=== PATIENT | female | born 1975 | race Caucasian/White ===

== ENCOUNTER 2017-05-13 11:31 | Inpatient (IN) | payer MEDICAID, OTHER ==
[~2017-05-13] VITALS: Ht 160 cm; Wt 58.1 kg
[~2017-05-13 11:31] MED LIST: ADVI200C9 PO; VENTAER INH
[2017-05-13] MEDS ORDERED: IOHEXOL 350 MG/ML 10 ML VIAL (for RAD DIAG) IVCONTRAST ONE (11:32)
[2017-05-13 12:48] VITALS: BP 120/85; PULSE 95; RESP 16; TEMP 98.6; O2SAT 98
--- NOTE | 2017-05-13 12:53 | PD ---
HPI Chief Complaint: Abdominal Pain Time Seen by Provider: 12:53 Travel History International Travel<30 days: No Contact w/Intl Traveler<30days: No Traveled to known affect area: No History of Present Illness HPI 42-year-old female presents the emergency department with increasing abdominal discomfort, distention, decreased urinary output and constipation like symptoms. She states recent surgery at [facility] 2 weeks ago for reported bowel perforation. Medical records were obtained with a postoperative diagnosis of perforated viscus septic abscess, large rectovaginal abscess with perforated Meckel's diverticulum. There was concern for tubo- ovarian abscess. Patient has not gone back to follow-up, and still has octavio placed in her anterior abdominal surgical scar which appears well-healed. Patient denies fever or chills. Patient states very little appetite but denies vomiting. Patient states her pain is 9 out of 10 and generalized more in the lower abdomen than upper. She denies shortness of breath or chest pain. She denies dysuria or vaginal discharge. PFSH Past Medical History Anxiety: No Depression: Yes Heart Rhythm Problems: No Cancer: No Cardiovascular Problems: No High Cholesterol: No Congestive Heart Failure: No Cerebrovascular Accident: No Diabetes: No Diminished Hearing: No Endocrine: No Genitourinary: No Immune Disorder: No Musculoskeletal: Yes Neurologic: Yes Psychiatric: Yes Reproductive: No Respiratory: Yes (COPD) Seizures: Yes ( ) Thyroid Disease: No ?: Unknown : 3 Para: 1 Miscarriage: 1 : 1 Past Surgical History Abdominal Surgery: Yes (APPENDECTOMY) Appendectomy: Yes Social History Alcohol Use: Yes (2 vodka's daily) Tobacco Use: Yes (1PK per day) Substance Use: No Allergies-Medications (Allergen,Severity, Reaction): Coded Allergies: amoxicillin (Unverified Allergy, Severe, 05/13/17) penicillin G (Unverified Allergy, Severe, 05/13/17) Reported Meds & Prescriptions Reported Meds & Active Scripts Active Review of Systems Except as stated in HPI: all other systems reviewed are Neg General / Constitutional: No: Fever Eyes: No: Visual changes HENT: No: Headaches Cardiovascular: No: Chest Pain or Discomfort Respiratory: No: Shortness of Breath Gastrointestinal: Positive: Nausea, Abdominal Pain, Constipation, Changes in Bowel Habits, Loss of Appetite, Other (abdominal distention.), No: Indigestion Genitourinary: No: Dysuria Musculoskeletal: No: Pain Skin: No Rash Neurologic: No: Weakness Psychiatric: No: Depression Endocrine: No: Polydipsia Hematologic/Lymphatic: No: Easy Bruising Physical Exam Narrative GENERAL: Patient appears in mild to moderate distress. SKIN: Warm and dry. Poor pallor. Poor turgor with tenting. No rash. Patient has old ecchymotic area on the left anterior lateral lower abdomen. Surgical vision is well-healed without signs of wound dehiscence or cellulitis. HEAD: Atraumatic. Normocephalic. EYES: Pupils equal and round. No scleral icterus. No injection or drainage. ENT: No nasal bleeding or discharge. Mucous membranes pink and dry. Pharynx is clear. Airway is patent. NECK: Trachea midline. Supple and nontender. CARDIOVASCULAR: Regular rate and rhythm. No murmurs appreciated RESPIRATORY: No accessory muscle use. Clear to auscultation. Breath sounds equal bilaterally. GASTROINTESTINAL: Abdomen soft, moderate generalized tenderness, moderate distention. Hepatic and splenic margins not palpable. MUSCULOSKELETAL: Extremities without clubbing, cyanosis, or edema. No obvious deformities. NEUROLOGICAL: Awake and alert. No obvious cranial nerve deficits. Motor grossly within normal limits. Five out of 5 muscle strength in the arms and legs. Normal speech. PSYCHIATRIC: Appropriate mood and affect; insight and judgment normal. Data Data Last Documented VS Orders Orders Complete Blood Count With Diff (05/13/17 13:17) Comprehensive Metabolic Panel (05/13/17 13:17) Lipase (05/13/17 13:17) Lactic Acid (05/13/17 13:17) Prothrombin Time / Inr (Pt) (05/13/17 13:17) Act Partial Throm Time (Ptt) (05/13/17 13:17) Urinalysis - C+S If Indicated (05/13/17 13:17) Ct Abd/Pel W Iv Contrast(Rout) (05/13/17 13:17) Iv Access Insert/Monitor (05/13/17 13:17) Ecg Monitoring (05/13/17 13:17) Oximetry (05/13/17 13:17) NPO (05/13/17 13:17) Morphine Inj (Morphine Inj) (05/13/17 13:30) Ondansetron Inj (Zofran Inj) (05/13/17 13:30) Pantoprazole Inj (Protonix Inj) (05/13/17 13:30) Sodium Chlor 0.9% 1000 Ml Inj (Ns 1000 M (05/13/17 13:17) Sodium Chloride 0.9% Flush (Ns Flush) (05/13/17 13:30) Chest, Single Ap (05/13/17 13:17) Urinary Catheter Insert/Apply (05/13/17 13:17) Oral Contrast - Adult (05/13/17 13:29) Potassium Chlor 20 Meq Premix (Kcl 20 Me (05/13/17 14:45) Magnesium Sulfate 1 Gm Premix (Magnesium (05/13/17 14:45) Diatrizoate Liq ( Gastroview Liq) (05/13/17 15:37) Iohexol 350 Inj (Omnipaque 350 Inj) (05/13/17 11:32) Admit Order (Ed Use Only) (05/13/17 19:17) Labs Laboratory Tests Test 05/13/17 13:15 05/13/17 15:30 White Blood Count 17.5 TH/MM3 Red Blood Count 4.03 MIL/MM3 Hemoglobin 12.6 GM/DL Hematocrit 37.3 % Mean Corpuscular Volume 92.7 FL Mean Corpuscular Hemoglobin 31.3 PG Mean Corpuscular Hemoglobin Concent 33.7 % Red Cell Distribution Width 14.1 % Platelet Count 222 TH/MM3 Mean Platelet Volume 9.7 FL Neutrophils (%) (Auto) 79.7 % Lymphocytes (%) (Auto) 7.0 % Monocytes (%) (Auto) 11.8 % Eosinophils (%) (Auto) 1.0 % Basophils (%) (Auto) 0.5 % Neutrophils # (Auto) 13.9 TH/MM3 Lymphocytes # (Auto) 1.2 TH/MM3 Monocytes # (Auto) 2.1 TH/MM3 Eosinophils # (Auto) 0.2 TH/MM3 Basophils # (Auto) 0.1 TH/MM3 CBC Comment AUTO DIFF Differential Total Cells Counted 100 Neutrophils % (Manual) 80 % Band Neutrophils % 9 % Lymphocytes % 5 % Monocytes % 4 % Neutrophils # (Manual) 15.9 TH/MM3 Metamyelocytes 2 % Differential Comment FINAL DIFF MANUAL Toxic Granulation 1+ Platelet Estimate NORMAL Platelet Morphology Comment NORMAL Target Cells 1+ Prothrombin Time 18.7 SEC Prothromb Time International Ratio 1.7 RATIO Activated Partial Thromboplast Time 33.2 SEC Blood Urea Nitrogen 11 MG/DL Creatinine 0.71 MG/DL Random Glucose 125 MG/DL Total Protein 6.4 GM/DL Albumin 1.8 GM/DL Calcium Level 7.6 MG/DL Alkaline Phosphatase 531 U/L Aspartate Amino Transf (AST/SGOT) 68 U/L Alanine Aminotransferase (ALT/SGPT) 12 U/L Total Bilirubin 0.9 MG/DL Sodium Level 123 MEQ/L Potassium Level 2.7 MEQ/L Chloride Level 81 MEQ/L Carbon Dioxide Level 30.8 MEQ/L Anion Gap 11 MEQ/L Estimat Glomerular Filtration Rate 90 ML/MIN Lactic Acid Level 2.1 mmol/L Lipase 3502 U/L Urine Color YELLOW Urine Turbidity CLEAR Urine pH 5.5 Urine Specific [place] 1.005 Urine Protein NEG mg/dL Urine Glucose (UA) NEG mg/dL Urine Ketones NEG mg/dL Urine Occult Blood NEG Urine Nitrite NEG Urine Bilirubin NEG Urine Urobilinogen LESS THAN 2.0 MG/DL Urine Leukocyte Esterase NEG Urine WBC 2 /hpf Urine Squamous Epithelial Cells <1 /hpf Urine Granular Casts 1 /lpf Microscopic Urinalysis Comment CULT NOT INDICATED MDM Medical Decision Making Medical Screen Exam Complete: Yes Emergency Medical Condition: Yes Medical Record Reviewed: Yes Differential Diagnosis Status post bowel perforation. Constipation. Ascites. Abdominal distention. Abdominal pain. Abdominal blockage. Possible reperforation. Narrative Course Patient appears medically stable at time of exam. Labs ordered including CBC, CMP, lactic acid, urinalysis. EKG and chest x-ray are ordered. CT of the abdomen/pelvis with IV contrast is ordered. IV access is obtained patient is given 1000 mg normal saline bolus as well as 4 mg morphine IV and 4 mg Zofran IV. Patient is given 40 mg pantoprazole IV. EKG shows normal sinus rhythm without significant changes. Chest x-ray shows no acute findings and no free air. CBC significant for a leukocytosis of 17.5. No increased bands. Coagulation shows PT of 18.7, INR of 1.7, APTT is 33.2. CMP is significant for sodium 123, potassium 2.7, chloride of 81, random glucose 125, calcium is 7.6, AST 68, ALT 12, alkaline phosphatase of 531, albumin of 1.8, and lipase of 3502. Patient is started on potassium 20 mEq IV every hour 2, as well as magnesium 1 mg IV per hour 2. Lactic acid is 2.1. Urinalysis is within normal limits. Abdominal CT shows: #1 cirrhosis. #2 findings suggesting acute pancreatitis with large pseudocyst measuring 7.75.82.8 cm. #3 low density mass involving the head of the pancreas. Measuring 2.11.81.7 cm. Radiologist is concerned this relates to malignancy. There is clearly some mass effect on the pancreatic duct which is mildly dilated within the body and tail measuring 4 mm. MRI is to be considered for further evaluation. #4 Ileus type pattern. #5 small focus of air and fluid directly adjacent to the sigmoid colon. Radiologist is unsure if this relates to a very large diverticulum or to a contained microperforation. # 6 right basilar atelectasis. This is per Dr. Tang Garcia Jr. radiologist. Findings were discussed with Dr. Mayfield. Call was placed to the hospitalist, and patient was discussed for admission. Patient is admitted. Diagnosis Primary Impression: Acute pancreatitis Qualified Codes: K85.90 - Acute pancreatitis without necrosis or infection, unspecified Additional Impressions: Acute hyponatremia Hypokalemia Abdominal abscess Admitting Information Admitting Physician Requests: Admit Condition: Stable Allan Saeed May 13, 2017 12:53
[2017-05-13] MEDS ORDERED: SODIUM CHLOR 0.9% 1000 ML INJ 1,000 ML IV SCH (13:17)
[2017-05-13] MEDS ORDERED: MORPHINE SULFATE 4 MG/ML INJ IV PUSH ONE (13:30)
[2017-05-13] MEDS ORDERED: ONDANSETRON HCL 4 MG/2 ML VIAL IVP ONE (13:30)
[2017-05-13] MEDS ORDERED: PANTOPRAZOLE SODIUM 40 MG VIAL IVP ONE (13:30)
[2017-05-13] MEDS ORDERED: SODIUM CHLORIDE 0.9% FLUSH 10 ML FLUSH IV FLUSH PRN (13:30)
--- NOTE | 2017-05-13 13:43 | RADRPT ---
EXAM DATE/TIME: 05/13/2017 13:33 [facility] COMPARISON: CHEST SINGLE AP, April 21, 2015, 5:31. INDICATIONS : Free air, abdomen pain. MEDICAL HISTORY : hx of subdural hematoma, seizure SURGICAL HISTORY : None. ENCOUNTER: Initial ACUITY: 1 day PAIN SCORE: 0/10 LOCATION: Bilateral chest FINDINGS: Portable AP upright single view of the chest demonstrates a normal-sized cardiac silhouette. There ar e linear opacities at the lung bases. No pleural effusion or pneumothorax is identified. The bones an d soft tissues demonstrate no acute finding. There is no free air beneath the hemidiaphragms. CONCLUSION: Underinflation with atelectasis at the lung bases. Otherwise, no acute finding is identified. No free air is seen. Scotty Ball MD on May 13, 2017 at 13:40 Board Certified Radiologist. This report was verified electronically.
[2017-05-13 14:10] LABS: AUTOMATED NEUTROPHIL # 13.9 TH/MM3 (1.8-7.7); BASOPHIL # 0.1 TH/MM3 (0-0.2); BASOPHIL % 0.5 % (0.0-2.0); EOSINOPHIL # 0.2 TH/MM3 (0-0.4); HEMATOCRIT 37.3 % (35.0-46.0); LYMPHOCYTE # 1.2 TH/MM3 (1.0-4.8); MEAN CELL VOLUME 92.7 FL (80.0-100.0); MEAN CORPUSCULAR HEMOGLOBIN 31.3 PG (27.0-34.0); MEAN CORPUSCULAR HGB CONC 33.7 % (32.0-36.0); MONO % 11.8 % (0.0-8.0); NEUT % 79.7 % (16.0-70.0); PLATELET COUNT 222 TH/MM3 (150-450); RED BLOOD COUNT 4.03 MIL/MM3 (4.00-5.30); RED CELL DISTRIBUTION WIDTH 14.1 % (11.6-17.2); WHITE BLOOD COUNT 17.5 TH/MM3 (4.0-11.0)
[2017-05-13 14:11] LABS: HEMO FLAGS AUTO DIFF
[2017-05-13 14:20] LABS: INTERNATIONAL NORMALIZED RATIO 1.7 RATIO; PROTHROMBIN TIME - PATIENT 18.7 SEC (9.8-11.6)
[2017-05-13 14:26] LABS: APTT (PATIENT) 33.2 SEC (24.3-30.1)
[2017-05-13 14:30] LABS: BLOOD UREA NITROGEN 11 MG/DL (7-18); GLOMERULAR FILTRATION RATE 90 ML/MIN (>89)
[2017-05-13 14:31] LABS: ALKALINE PHOSPHATASE 531 U/L (45-117); ALT (GPT) 12 U/L (10-53); AST (GOT) 68 U/L (15-37); CHLORIDE 81 MEQ/L (98-107); TOTAL BILIRUBIN ADULT 0.9 MG/DL (0.2-1.0)
[2017-05-13 14:32] LABS: ANION GAP 11 MEQ/L (5-15); BICARBONATE 30.8 MEQ/L (21.0-32.0)
[2017-05-13 14:34] LABS: POTASSIUM 2.7 MEQ/L (3.5-5.1); SODIUM (NA) 123 MEQ/L (136-145)
[2017-05-13 14:46] LABS: BANDS 9 % (0-6); METAMYELOCYTES 2 % (0-1); NEUTROPHIL # MANUAL DIFF 15.9 TH/MM3 (1.8-7.7); PLATELET ESTIMATE SMEAR NORMAL (NORMAL); PLATELET MORPHOLOGY NORMAL (NORMAL); POLYS (SEG NEUTROPHILS) 80 % (16-70); SCAN/DIFF FINAL DIFF MANUAL; TARGET CELLS 1+ (NORMAL); TOXIC GRANULATION 1+ (NORMAL); WBC DIFF SAMPLE 100
[2017-05-13] MEDS: MAGNESIUM SULFATE 1 GM PREMIX 100 ML IV SCH ×2 (15:16→17:30)
[2017-05-13] MEDS: POTASSIUM CHLOR 20 MEQ PREMIX 100 ML IV SCH ×2 (15:16→16:45)
[2017-05-13 15:31] VITALS: BP 123/87; PULSE 90; RESP 16; O2SAT 97
[2017-05-13 15:33] VITALS: BP 123/87; PULSE 90; RESP 15; O2SAT 98
[2017-05-13] MEDS ORDERED: DIATRIZOATE MEGLUM/DIATRIZOATE SOD 9 ML CUP ONE (15:37)
[2017-05-13 16:05] LABS: BLOOD, URINE NEG (NEG); COMMENT (UR) CULT NOT INDICATED; CULTURE IF INDICATED CULT NOT INDICATED; GLUCOSE,URINE NEG (NEG); GRANULAR CAST, URINE 1 /lpf; KETONE, URINE NEG (NEG); NITRITE,URINE NEG (NEG); PH, URINE 5.5 (5.0-8.5); SQUAMOUS EPITHELIAL CELL URINE <1 /hpf (0-5); URINE COLOR YELLOW (YELLW/STRAW)
[2017-05-13 17:49] VITALS: BP 124/84; PULSE 96; RESP 18; O2SAT 95
--- NOTE | 2017-05-13 17:57 | RADRPT ---
EXAM DATE/TIME: 05/13/2017 17:29 [facility] COMPARISON: CHEST SINGLE AP, May 13, 2017, 13:33. INDICATIONS : Diffuse abdominal pain with swelling. IV CONTRAST: 100 cc Omnipaque 350 (iohexol) IV ORAL CONTRAST: Prescribed oral contrast ingested. RADIATION DOSE: 9.96 CTDIvol (mGy) MEDICAL HISTORY : Seizures. SURGICAL HISTORY : Appendectomy. abdominal surgery, perforated bowel ENCOUNTER: Initial ACUITY: 1 day PAIN SCALE: 7/10 LOCATION: abdomen TECHNIQUE: Volumetric scanning of the abdomen and pelvis was performed. Using automated exposure control and ad justment of the mA and/or kV according to patient size, radiation dose was kept as low as reasonably achievable to obtain optimal diagnostic quality images. DICOM format image data is available electro nically for review and comparison. FINDINGS: LOWER LUNGS: Linear atelectasis within the right lung base. LIVER: There is a lobulated contour to the liver. Hepatomegaly noted. No discrete mass or ductal dilatation. Portal vein is patent. Gallbladder contains 2 tiny stones but is otherwise unremarkable. A recannula ericka periumbilical vein noted. SPLEEN: Normal size without lesion. PANCREAS: There is a low density mass involving the head of the pancreas. This measures 2.1 x 1.8 x 1.7 cm. The pancreatic duct is mildly dilated measuring 4 mm. There is a retroperitoneal fluid collection exophy tic from the pancreas felt to relate to a pseudocyst. This measures 7.7 x 5.8 x 2.8 cm. There is stra nding in the retroperitoneum adjacent to the pseudocyst. KIDNEYS: Normal in size and shape. There is no mass, stone or hydronephrosis. ADRENAL GLANDS: Within normal limits. VASCULAR: There is no aortic aneurysm. BOWEL/MESENTERY: Mildly distended loops of small bowel and large bowel are noted consistent with an ileus. There is sc attered areas of stranding of the mesentery particularly within the ileocolic distribution. A small a mount of free fluid is seen within the cul-de-sac. Directly cephalad to the sigmoid colon is a small focus of air with air-fluid level. This measures 3.5 x 3.5 x 1.6 cm. It abuts the superior margin of the sigmoid colon. ABDOMINAL WALL: Within normal limits. RETROPERITONEUM: See above discussion. No adenopathy. BLADDER: Urinary bladder contains a Franklin balloon. It is decompressed and poorly evaluated. REPRODUCTIVE: Within normal limits. INGUINAL: There is no lymphadenopathy or hernia. MUSCULOSKELETAL: Within normal limits for patient age. CONCLUSION: 1. Cirrhosis. 2. Findings suggesting acute pancreatitis with large pseudocyst measuring 7.7 x 5.8 x 2.8 cm. 3. Low density mass involving the head of the pancreas. Measuring 2.1 x 1.8 x 1.7 cm. I'm concerned this relates to malignancy. There is clearly some mass effect on the pancreatic duct which is mildly dilated within the body and tail measuring 4 mm. Consider MRI to further evaluate. 4. Ileus type pattern. 5. A small focus of air and fluid directly adjacent to the sigmoid colon. I am unsure if this relates to a very large diverticulum or to a contained microperforation. 6. Right basilar atelectasis. Tang Garcia Jr., MD on May 13, 2017 at 17:45 Board Certified Radiologist. This report was verified electronically.
[2017-05-13] MEDS: SODIUM CHLOR 0.9% 1000 ML INJ 1,000 ML IV SCH (19:46)
--- NOTE | 2017-05-13 19:50 | HHI.HP ---
[facility] Unknown Admission Diagnosis Pancreatitis/Hyponatremia/Hypokalemia Diagnoses: (1) Sepsis Diagnosis: Principal (2) Pancreatitis Diagnosis: Principal (3) Pancreatic mass Diagnosis: Principal (4) Hypokalemia Diagnosis: Principal (5) S/P small bowel resection Diagnosis: Principal (6) Alcohol abuse Diagnosis: Principal (7) Tobacco abuse Diagnosis: Principal Travel History International Travel<30 Days: No Contact w/Intl Traveler <30 Da: No Traveled to Known Affected Are: No History of Present Illness This is a 42-year-old female with a PMH of Alcohol Abuse, Alcohol Related Seizure and Tobacco Abuse who presented to the ER with complaints of abdominal pain and increased abdominal distention x1 wk. States she was seen at [facility] for similar symptoms approx 2wks ago, partial records obtained from , pt is s/p Ex Lap w/ wash out abscess rectovaginal space and small bowel resection for likely Meckel's diverticulum by Dr. Jose Nichole on 04/17/17, octavio still in place as patient has not followed up. Reports ongoing abdominal pain and decreased PO intake. No fever, chills. Ongoing alcohol, however states she "cut down" yesterday, normally drinks 3-4 rum drinks per day , reports having only one drink yesterday for her birthday. On arrival, BP 120/ 85, HR 95, O2 sat 98% on RA, Afebrile. WBC 17.5. Band neutrophils 9%. Na 123 , K+ 2.7. Lactic Acid 2.1. Lipase 3502. INR 1.7. UA negative. CXR with underinflation and atelectasis. CT Abd/Pelvis w/ cirrhosis, acute pancreatitis with large pseudocyst, low density mass at the head of the pancreas, concerning for malignancy, mass effect on pancreatic duct, recommendation for MRI. Review of Systems Except as stated in HPI: all other systems reviewed are Neg ROS: 14 point review of systems otherwise negative. Past Family Social History Past Medical History PMH: Alcohol Abuse, Alcohol Related Seizure and Tobacco Abuse Past Surgical History PAST SURGICAL HISTORY: Appendectomy Allergies: Coded Allergies: amoxicillin (Unverified Allergy, Severe, 05/13/17) penicillin G (Unverified Allergy, Severe, 05/13/17) Family History PAST FAMILY HISTORY: Reviewed. No h/o DM or CAD Social History PAST SOCIAL HISTORY: Positive for Alcohol Abuse, difficult to quantify. Smokes 1ppd. Negative for drugs. Physical Exam Vital Signs Vital Signs Date Time Temp Pulse Resp B/P (MAP) Pulse Ox O2 Delivery O2 Flow Rate FiO2 05/13/17 17:49 96 18 124/84 (97) 95 Room Air 05/13/17 15:33 90 15 123/87 (99) 98 Room Air 05/13/17 15:31 90 16 123/87 (99) 97 Room Air 05/13/17 15:20 14 05/13/17 12:53 16 05/13/17 12:48 98.6 95 16 120/85 (97) 98 Physical Exam PE: GENERAL: Middle-aged thin white female in no acute distress. HEENT: PERRLA, EOMI. No scleral icterus or conjunctival pallor. No lid lag or facial droop. CARDIOVASCULAR: Regular rate and rhythm. No obvious murmurs to auscultation. No chest tenderness to palpation. RESPIRATORY: No obvious rhonchi or wheezing. Clear to auscultation. Breath sounds equal bilaterally. GASTROINTESTINAL: Abdomen soft, distention, generalized tenderness to palpation , surgical scars intact, no signs of infection, octavio removed in the ER. BS normal. MUSCULOSKELETAL: Extremities without clubbing, cyanosis, or edema. No obvious deformities. NEUROLOGICAL: Awake, alert and oriented x4. No focal neurologic deficits. Moving both upper and lower extremities spontaneously. Laboratory Laboratory Tests Test 05/13/17 13:15 05/13/17 15:30 White Blood Count 17.5 Red Blood Count 4.03 Hemoglobin 12.6 Hematocrit 37.3 Mean Corpuscular Volume 92.7 Mean Corpuscular Hemoglobin 31.3 Mean Corpuscular Hemoglobin Concent 33.7 Red Cell Distribution Width 14.1 Platelet Count 222 Mean Platelet Volume 9.7 Neutrophils (%) (Auto) 79.7 Lymphocytes (%) (Auto) 7.0 Monocytes (%) (Auto) 11.8 Eosinophils (%) (Auto) 1.0 Basophils (%) (Auto) 0.5 Neutrophils # (Auto) 13.9 Lymphocytes # (Auto) 1.2 Monocytes # (Auto) 2.1 Eosinophils # (Auto) 0.2 Basophils # (Auto) 0.1 CBC Comment AUTO DIFF Differential Total Cells Counted 100 Neutrophils % (Manual) 80 Band Neutrophils % 9 Lymphocytes % 5 Monocytes % 4 Neutrophils # (Manual) 15.9 Metamyelocytes 2 Differential Comment FINAL DIFF MANUAL Toxic Granulation 1+ Platelet Estimate NORMAL Platelet Morphology Comment NORMAL Target Cells 1+ Prothrombin Time 18.7 Prothromb Time International Ratio 1.7 Activated Partial Thromboplast Time 33.2 Blood Urea Nitrogen 11 Creatinine 0.71 Random Glucose 125 Total Protein 6.4 Albumin 1.8 Calcium Level 7.6 Alkaline Phosphatase 531 Aspartate Amino Transf (AST/SGOT) 68 Alanine Aminotransferase (ALT/SGPT) 12 Total Bilirubin 0.9 Sodium Level 123 Potassium Level 2.7 Chloride Level 81 Carbon Dioxide Level 30.8 Anion Gap 11 Estimat Glomerular Filtration Rate 90 Lactic Acid Level 2.1 Lipase 3502 Urine Color YELLOW Urine Turbidity CLEAR Urine pH 5.5 Urine Specific [place] 1.005 Urine Protein NEG Urine Glucose (UA) NEG Urine Ketones NEG Urine Occult Blood NEG Urine Nitrite NEG Urine Bilirubin NEG Urine Urobilinogen LESS THAN 2.0 Urine Leukocyte Esterase NEG Urine WBC 2 Urine Squamous Epithelial Cells <1 Urine Granular Casts 1 Microscopic Urinalysis Comment CULT NOT INDICATED Result Diagram: 05/13/17 1315 05/13/17 1315 Caprini VTE Risk Assessment Caprini VTE Risk Assessment: No/Low Risk (score <= 1) VTE Pharm Contraindication: Coagulopathy,INR elevated Caprini Risk Assessment Model Point Value = 1 Point Value = 2 Point Value = 3 Point Value = 5 Age 41-60 Minor surgery BMI > 25 kg/m2 Swollen legs Varicose veins or History of unexplained or recurrent spontaneous Oral contraceptives or hormone replacement Sepsis (< 1 month) Serious lung disease, including pneumonia (< 1 month) Abnormal pulmonary function Acute myocardial infarction Congestive heart failure (< 1 month) History of inflammatory bowel disease Medical patient at bed rest Age 61-74 Arthroscopic surgery Major open surgery (> 45 min) Laparoscopic surgery (> 45 min) Malignancy Confined to bed (> 72 hours) Immobilizing plaster cast Central venous access Age >= 75 History of VTE Family history of VTE Factor V Leiden Prothrombin [id number] Lupus anticoagulant Anticardiolipin antibodies Elevated serum homocysteine Heparin-induced thrombocytopenia Other congenital or acquired thrombophilia Stroke (< 1 month) Elective arthroplasty Hip, pelvis, or leg fracture Acute spinal cord injury (< 1 month) Prophylaxis Regimen Total Risk Factor Score Risk Level Prophylaxis Regimen 0-1 Low Early ambulation 2 Moderate Order ONE of the following: *Sequential Compression Device (SCD) *Heparin 5000 units SQ BID 3-4 Higher Order ONE of the following medications: *Heparin 5000 units SQ TID *Enoxaparin/Lovenox 40 mg SQ daily (WT < 150 kg, CrCl > 30 mL/min) *Enoxaparin/Lovenox 30 mg SQ daily (WT < 150 kg, CrCl > 10-29 mL/min) *Enoxaparin/Lovenox 30 mg SQ BID (WT < 150 kg, CrCl > 30 mL/min) AND/OR *Sequential Compression Device (SCD) 5 or more Highest Order ONE of the following medications: *Heparin 5000 units SQ TID (Preferred with Epidurals) *Enoxaparin/Lovenox 40 mg SQ daily (WT < 150 kg, CrCl > 30 mL/min) *Enoxaparin/Lovenox 30 mg SQ daily (WT < 150 kg, CrCl > 10-29 mL/min) *Enoxaparin/Lovenox 30 mg SQ BID (WT < 150 kg, CrCl > 30 mL/min) AND *Sequential Compression Device (SCD) Assessment and Plan Problem List: (1) Sepsis ICD Code: A41.9 - Sepsis, unspecified organism (2) Pancreatitis ICD Code: K85.90 - Acute pancreatitis without necrosis or infection, unspecified (3) Pancreatic mass ICD Code: K86.9 - Disease of pancreas, unspecified (4) S/P small bowel resection ICD Code: Z90.49 - Acquired absence of other specified parts of digestive tract (5) Hypokalemia ICD Code: E87.6 - Hypokalemia Status: Acute (6) Alcohol abuse ICD Code: F10.10 - Alcohol abuse Status: Chronic (7) Tobacco abuse ICD Code: Z72.0 - Tobacco use Assessment and Plan A/P: 1. Sepsis: HR 96, WBC 17.5, 9% Bands, Lactic Acid 2.1, Source-Unclear, possibly intra-abdominal, post-op. Obtain Blood Cultures, Start Cipro/Flagyl IV , IVF-caution w/ cirrhosis and possible fluid overload. 2. Pancreatitis: c/o abdominal pain, nausea/vomiting, decreased PO intake, Lipase 3502, CT Abd/Pelvis w/ acute pancreatitis w/ pseudocyst, images reviewed by me. Protonix IV, IVF, analgesics/antiemetics as needed. 3. Pancreatic Mass: CT Abd/Pelvis w/ low density mass at head of pancreas, concerning for malignancy per report, images reviewed. Recent hospitalization at [facility] for Perforated Bowel, pt states she was not told of a pancreatic mass, no imaging reports from available. Consult GI for further eval. Obtain MRI 4. S/p Small Bowel Resection: recent admit to [facility], s/p Ex Lap w/ washout abscess rectovaginal space and small bowel resection for likely perforated Meckel's diverticulum by Dr. Jose Nichole on 04/17/17, has not followed up post-op, octavio still in place upon arrival here, octavio removed in ER. CT w/ small focus of air adjacent to sigmoid colon, possibly large diverticulum vs contained microperforation, images reviewed. Will consult Dr. Nichole for further eval. 5. Hypokalemia: K+ 2.7, s/p replacement in ER, however not tolerating IV, will switch to PO, recheck labs in am. 6. Alcohol Abuse: w/ h/o Alcohol Related Seizure, high risk for withdrawal, CIWA, Seizure Precautions, MVT/Thiamine/Folate replacement 7. Tobacco Abuse: Pt counselled. Ativan/NicoDerm prn if needed. 8. DVT Prophylaxis: Pharmacologic contraindication secondary to coagulopathy, INR 1.7 and cirrhosis. 9. Social work for d/c planning as needed. 10. Case discussed w/ ER physician at length. Physician Certification 2 Midnight Certification Type: Admission for Inpatient Services Order for Inpatient Services The services are ordered in accordance with Medicare regulations or non- Medicare payer requirements, as applicable. In the case of services not specified as inpatient-only, they are appropriately provided as inpatient services in accordance with the 2-midnight benchmark. Estimated LOS (days): 2 days is the estimated time the patient will need to remain in the hospital, assuming treatment plan goals are met and no additional complications. Post-Hospital Plan: Not yet determined Chrissy Elias MD May 13, 2017 19:50
[2017-05-13] MEDS ORDERED: BISACODYL 10 MG SUPP RECTAL PRN (20:00)
[2017-05-13] MEDS ORDERED: MAGNESIUM HYDROXIDE SUSP 30 ML CUP PO PRN (20:00)
[2017-05-13] MEDS ORDERED: ONDANSETRON HCL 4 MG/2 ML VIAL IVP PRN (20:00)
[2017-05-13] MEDS ORDERED: LORazepam 2 MG TAB PO PRN (20:00)
[2017-05-13] MEDS ORDERED: LORazepam 1 MG TAB PO PRN (20:00)
[2017-05-13] MEDS ORDERED: HALOPERIDOL LACTATE 5 MG/ML AMP IM PRN (20:00)
[2017-05-13] MEDS ORDERED: LACTULOSE SYRUP 20 GM/30 ML CUP PO PRN (20:00)
[2017-05-13] MEDS ORDERED: LORazepam 2 MG/ML VIAL IV PUSH PRN ×4 (20:00)
[2017-05-13] MEDS ORDERED: SENNOSIDES 8.6 MG TAB PO PRN (20:00)
[2017-05-13] MEDS ORDERED: FLUMAZENIL 0.5 MG/5 ML VIAL IV PUSH PRN (20:00)
[2017-05-13 20:23] VITALS: BP 120/81; PULSE 93; RESP 18; O2SAT 96
[2017-05-13] MEDS ORDERED: POTASSIUM CHLORIDE 25 MEQ EFFERVESCENT TAB PO ONE (20:30)
[2017-05-13] MEDS: CIPROFLOXACIN 400 MG PREMIX 200 ML IV SCH (20:55)
[2017-05-13] MEDS: DOCUSATE SODIUM 50 MG/SENNA 8.6 MG TAB PO SCH (20:55)
[2017-05-13] MEDS: SODIUM CHLORIDE 0.9% FLUSH 10 ML FLUSH IV FLUSH SCH (20:57)
[2017-05-13] MEDS: HYDROmorphone HCL PF 1 MG/ML VIAL IV PRN (20:57)
[2017-05-13 22:31] VITALS: BP 113/80; PULSE 95; RESP 18; TEMP 97.1; O2SAT 95
[2017-05-13] MEDS: metroNIDAZOLE 500 MG INJ 100 ML IV SCH (22:47)
[2017-05-14] VITALS (9 sets, daily range): BP systolic 104–140; BP diastolic 76–98; PULSE 96–115; RESP 18–20; TEMP 96–99.1; O2SAT 92–95
[2017-05-14] MEDS: HYDROmorphone HCL PF 1 MG/ML VIAL IV PRN ×6 (00:17→20:57)
[2017-05-14] MEDS: metroNIDAZOLE 500 MG INJ 100 ML IV SCH ×3 (04:43→19:48)
[2017-05-14 08:07] LABS: AUTOMATED NEUTROPHIL # 20.2 TH/MM3 (1.8-7.7); BASOPHIL % 0.1 % (0.0-2.0); EOSINOPHIL # 0.1 TH/MM3 (0-0.4); EOSINOPHIL % 0.4 % (0.0-4.0); LYMPH % 2.9 % (9.0-44.0); LYMPHOCYTE # 0.7 TH/MM3 (1.0-4.8); MEAN CELL VOLUME 92.3 FL (80.0-100.0); MEAN CORPUSCULAR HEMOGLOBIN 31.1 PG (27.0-34.0); MEAN CORPUSCULAR HGB CONC 33.7 % (32.0-36.0); MONO % 10.2 % (0.0-8.0); NEUT % 86.4 % (16.0-70.0); PLATELET COUNT 220 TH/MM3 (150-450); RED BLOOD COUNT 3.57 MIL/MM3 (4.00-5.30); RED CELL DISTRIBUTION WIDTH 14.2 % (11.6-17.2); WHITE BLOOD COUNT 23.4 TH/MM3 (4.0-11.0)
[2017-05-14 08:17] LABS: HEMO FLAGS AUTO DIFF
[2017-05-14] MEDS: DOCUSATE SODIUM 50 MG/SENNA 8.6 MG TAB PO SCH ×2 (08:19→19:48)
[2017-05-14] MEDS: PANTOPRAZOLE SODIUM 40 MG VIAL IV PUSH SCH ×2 (08:19→19:48)
[2017-05-14] MEDS: CIPROFLOXACIN 400 MG PREMIX 200 ML IV SCH ×2 (08:20→09:59)
[2017-05-14] MEDS: SODIUM CHLORIDE 0.9% FLUSH 10 ML FLUSH IV FLUSH SCH ×2 (08:21→19:48)
[2017-05-14 08:37] LABS: ALKALINE PHOSPHATASE 530 U/L (45-117); ALT (GPT) 10 U/L (10-53); ANION GAP 10 MEQ/L (5-15); AST (GOT) 60 U/L (15-37); BICARBONATE 31.4 MEQ/L (21.0-32.0); BLOOD UREA NITROGEN 8 MG/DL (7-18); CHLORIDE 89 MEQ/L (98-107); GLOMERULAR FILTRATION RATE 141 ML/MIN (>89); SODIUM (NA) 130 MEQ/L (136-145)
[2017-05-14 08:44] LABS: POTASSIUM 2.7 MEQ/L (3.5-5.1)
--- NOTE | 2017-05-14 08:58 | HHI.PR ---
Subjective Remarks Follow up abdominal pain, nausea, vomiting. The patient reports that the abdominal pain is "about the same". She has had nausea and vomiting overnight. Emesis is greenish in color, nonbloody. Abdomen is distended. Objective Vitals Vital Signs Date Time Temp Pulse Resp B/P (MAP) Pulse Ox O2 Delivery O2 Flow Rate FiO2 05/14/17 07:50 98.1 103 20 133/98 (110) 95 05/14/17 04:00 96.0 105 18 140/95 (110) 94 05/14/17 00:47 16 05/14/17 00:00 96.2 96 18 134/93 (107) 93 05/13/17 22:31 97.1 95 18 113/80 (91) 95 05/13/17 22:04 05/13/17 20:23 93 18 120/81 (94) 96 05/13/17 17:49 96 18 124/84 (97) 95 Room Air 05/13/17 15:33 90 15 123/87 (99) 98 Room Air 05/13/17 15:31 90 16 123/87 (99) 97 Room Air 05/13/17 15:20 14 05/13/17 12:53 16 05/13/17 12:48 98.6 95 16 120/85 (97) 98 I/O 05/13/17 05/13/17 05/13/17 05/14/17 05/14/17 05/14/17 06:59 14:59 22:59 06:59 14:59 22:59 Intake Total 1100 ml 120 ml Balance 1100 ml 120 ml Intake Oral 120 ml IV Total 1100 ml Result Diagram: 05/14/17 0710 05/14/17 0710 Imaging Last Impressions Chest X-Ray 05/13/17 1317 Signed Impressions: Service Date/Time: Saturday, May 13, 2017 13:33 - CONCLUSION: Underinflation with atelectasis at the lung bases. Otherwise, no acute finding is identified. No free air is seen. Scotty Ball MD Abdomen/Pelvis CT 05/13/17 1317 Signed Impressions: Service Date/Time: Saturday, May 13, 2017 17:29 - CONCLUSION: 1. Cirrhosis. 2. Findings suggesting acute pancreatitis with large pseudocyst measuring 7.7 x 5.8 x 2.8 cm. 3. Low density mass involving the head of the pancreas. Measuring 2.1 x 1.8 x 1.7 cm. I'm concerned this relates to malignancy. There is clearly some mass effect on the pancreatic duct which is mildly dilated within the body and tail measuring 4 mm. Consider MRI to further evaluate. 4. Ileus type pattern. 5. A small focus of air and fluid directly adjacent to the sigmoid colon. I am unsure if this relates to a very large diverticulum or to a contained microperforation. 6. Right basilar atelectasis. Tang Garcia Jr., MD Objective Remarks General: No acute distress. Heart: Regular rate and rhythm. No murmur. Lungs: Clear to auscultation bilaterally. No wheezes, rales, or rhonchi. Breathing is nonlabored. Abdomen: Distended. Tender to palpation diffusely. Extremities: No lower extremity edema. Psych: Alert and oriented. Procedures None Urinary Catheter: No Vascular Central Line Catheter: No A/P Problem List: (1) Sepsis ICD Code: A41.9 - Sepsis, unspecified organism (2) Pancreatitis ICD Code: K85.90 - Acute pancreatitis without necrosis or infection, unspecified (3) Pancreatic mass ICD Code: K86.9 - Disease of pancreas, unspecified (4) S/P small bowel resection ICD Code: Z90.49 - Acquired absence of other specified parts of digestive tract (5) Hypokalemia ICD Code: E87.6 - Hypokalemia Status: Acute (6) Alcohol abuse ICD Code: F10.10 - Alcohol abuse Status: Chronic (7) Tobacco abuse ICD Code: Z72.0 - Tobacco use Assessment and Plan 1. Sepsis: Source likely abdominal. WBCs increasing. Blood cultures are pending. Continue IV antibiotics. 2. Pancreatitis: Lipase is elevated. Make NPO. CT shows acute pancreatitis with pseudocyst. GI consult pending. 3. Pancreatic mass: MRI ordered. GI and general surgery consults pending. 4. Abdominal pain, distention: Place NG tube to low intermittent suction. 5. S/P small bowel resection: General surgery consult pending. Patient has not followed up post-op. [place] removed in ER. 6. Hypokalemia: Supplement potassium. 7. Tobacco abuse: Counselled. 8. DVT prophylaxis: SCDs, SKYLER hose. Avoid chemical prophylaxis secondary to coagulopathy, possible need for surgical intervention. Agustín Mora MD May 14, 2017 08:58
[2017-05-14] MEDS ORDERED: THIAMINE HCL 100 MG TAB PO SCH (09:00)
[2017-05-14] MEDS ORDERED: FOLIC ACID 1 MG TAB PO SCH (09:00)
[2017-05-14] MEDS ORDERED: MULTIVITAMINS/MINERALS THERAPEUTIC TAB PO SCH (09:00)
[2017-05-14 09:14] LABS: BANDS 1 % (0-6); METAMYELOCYTES 2 % (0-1); MYELOCYTES 1 % (0-0); NEUTROPHIL # MANUAL DIFF 21.1 TH/MM3 (1.8-7.7); POLYS (SEG NEUTROPHILS) 86 % (16-70); WBC DIFF SAMPLE 100
[2017-05-14 09:16] LABS: PLATELET ESTIMATE SMEAR NORMAL (NORMAL); PLATELET MORPHOLOGY ENLARGED (NORMAL); SCAN/DIFF FINAL DIFF MANUAL; TARGET CELLS 1+ (NORMAL); TOXIC GRANULATION 2+ (NORMAL)
[2017-05-14] MEDS ORDERED: GADODIAMIDE PF 287 MG/ML 10 ML VIAL (for RAD MRI) IVCONTRAST ONE (09:40)
--- NOTE | 2017-05-14 10:29 | RADRPT ---
EXAM DATE/TIME: 05/14/2017 09:13 [facility] COMPARISON: CT ABDOMEN & PELVIS W CONTRAST, May 13, 2017, 17:29. INDICATIONS : Abnormal CT scan. CONTRAST: 10 cc Omniscan (gadodiamide) IV MEDICAL HISTORY : None. SURGICAL HISTORY : Craniotomy. Right ankle ENCOUNTER: Initial ACUITY: 1 day PAIN SCORE: 0/10 LOCATION: Abdomen. TECHNIQUE: Multiplanar, multisequence magnetic resonance imaging of the abdomen was performed. High-resolution 3D dataset was utilized to reconstruct maximum-intensity projection (MIP) images. FINDINGS: INTRAHEPATIC BILE DUCTS: Within normal limits. No significant anatomical variant is present. EXTRAHEPATIC BILE DUCTS: The common bile duct measures 1.8 cm No stone or filling defect is identified. The distal common bile duct does taper down at the level of the head of the pancreas suggesting there may be a focal strict ure at this level. GALLBLADDER: No stones, wall thickening, or pericholecystic fluid. LIVER: Liver appears to be enlarged and 20.6 cm.. No liver lesion is identified. Portal vein is within norm al limits. PANCREAS: There is diffuse prominence involving the head of the pancreas which I suspect is related to patient' s known diagnosis of pancreatitis. However there does appear to be a focal area of some decreased sig nal in the upper head of the pancreas measuring 2.5 x 1.5 cm. This area does not demonstrate any sign ificant postcontrast enhancement. Also, the pancreatic duct does not appear to be significantly dilat ed. However the distal common bile duct does appear to be narrowed at this level. OTHER: The kidneys are functioning bilaterally. The adrenal glands and spleen are unremarkable. No para-aort ic adenopathy is demonstrated. There is some free fluid in the upper abdomen inflammatory changes in the mid abdomen characteristic of pancreatitis. CONCLUSION: 1. There is definite evidence of pancreatitis with inflammatory changes and fluid in the upper abdome n. 2. There is a focal nonspecific low signal lesion in head of pancreas measuring 2.5 x 1.5 cm without abnormal enhancement. The distal common bile duct at this level is narrowed suggestive of a stricture . The common bile duct is dilated at 1.8 cm. A focal mass in the head of the pancreas would be a prim khalida consideration. However, there is also diffuse inflammatory changes involving the pancreas as well as inflammatory changes in the upper abdomen indicating pancreatitis which I believe confuses the is chava. When the inflammatory changes associated with pancreatitis have resolved, ERCP would be recommen ded for further evaluation of this area. Sandro London MD on May 14, 2017 at 10:14 Board Certified Radiologist. This report was verified electronically.
[2017-05-14] MEDS: POTASSIUM CHLOR 20 MEQ PREMIX 100 ML IV SCH ×2 (12:19→15:30)
[2017-05-14] MEDS: SODIUM CHLOR 0.9% 1000 ML INJ 1,000 ML IV SCH ×2 (15:46→19:44)
--- NOTE | 2017-05-14 15:46 | PD.CONS ---
HPI History of Present Illness This is a 42 year old female who presented to the emergency room with abdominal pain and distention. She was recently hospitalized at [facility] and was noted to have a large complex pelvic abscess with concern for possible perforated Meckel's diverticulum. She underwent exploration with washout and drainage of abscess with drain placement on (04/17/17) with Dr. Nichole. Her condition improved and she was discharged from the hospital, but did not follow up with general surgery afterwards. She states that she was doing well after the surgery, but then started loosing weight and having abdominal distention with pain. She cannot provide much detail and reports that she has a history of a brain injury and therefore cannot remember. She does endorse nausea/ vomiting with bilious material. Her abdominal distention has progressively been getting worse. The pain starts in her lower abdomen and radiates to her entire abdomen. She came to the ER and was found to have a fever and leukocytosis with elevated lipase. She was sent for CT scan of the abdomen and pelvis with IV contrast (05/13/17) and this revealed cirrhosis, findings suggesting acute pancreatitis with large pseudocyst measuring 7.7 x 5.8 x 2.8 cm. Low density mass involving the head of the pancreas. Measuring 2.1 x 1.8 x 1.7 cm. I'm concerned this relates to malignancy. There is clearly some mass effect of the pancreatic duct which is mildly dilated within the body and spell measuring 4 mm. Consider MRI to further evaluate. Ileus type pattern. A small focus of air and fluid directly adjacent to the sigmoid colon. I am unsure if this relates to a very large I've reticulin or tic contained microperforation. Right basilar atelectasis. MRCP with and without contrast ()----> there is definite evidence of pancreatitis with inflammatory changes and fluid in the upper abdomen. There is a focal nonspecific low signal lesion in the head of the pancreas measuring 2.5 x 1.5 cm without abnormal enhancement. The distal common bile duct at this level is narrowed suggestive of a stricture. The common bile duct is dilated at 1.8 cm. A focal mass in the head of the pancreas would be a primary consideration. However there is also diffuse inflammatory changes involving then pancreas as well as inflammatory changes in the abdomen indicating pancreatitis which I believe confuses the issue. When the inflammatory changes associated with pancreatitis have resolved, ERCP would be recommended for further evaluation of this area. GI was consulted for further evaluation and treatment. The patient reports a history of ETOH use, usually 3-4 per day. She denies any history of pancreatitis. (Prachi Aldrich) PFSH Past Medical History Alcohol Abuse Alcohol Related Seizure Tobacco Abuse Meckel's diverticulum Perforated viscous septic abscess, large rectovaginal abscess with perforated Meckel's diverticulum. ? Tubo-ovarian abscess Hx large acute frontotemporal parietal occipital subdural hematoma Hx respiratory failure, requiring tracheostomy Hx dysphagia, requiring PEG tube placement Past Surgical History Recent exploratory laparotomy for perforated viscous septic abscess, large rectovaginal abscess with perforated Meckel's diverticulum. EGD with peg tube placement Tracheostomy (Prachi Aldrich) Coded Allergies: amoxicillin (Unverified Allergy, Severe, 05/13/17) penicillin G (Unverified Allergy, Severe, 05/13/17) Medications Allergies Coded Allergies Type Severity Reaction Last Updated Verified amoxicillin Allergy Severe 05/13/17 No penicillin G Allergy Severe 05/13/17 No Active Scripts Medications Dose Route/Sig Max Daily Dose Days Date Category Family History Pt denies. States both mom and dad from "normal reasons" Brother committed suicide Social History Positive for Alcohol Abuse, difficult to quantify Smokes 1ppd Negative for drugs. (Prachi Aldrich) Review of Systems Constitutional: COMPLAINS OF: Fatigue, Fever, Weight loss, Chills, DENIES: Change in appetite Respiratory: COMPLAINS OF: Shortness of breath, DENIES: Cough Cardiovascular: DENIES: Chest pain Gastrointestinal: COMPLAINS OF: Abdominal pain, Nausea, Vomiting, Swelling of Abdomen, DENIES: Black stools, Bloody stools, Constipation, Diarrhea Musculoskeletal: COMPLAINS OF: Back pain Integumentary: COMPLAINS OF: Pruritus Neurologic: DENIES: Headache Psychiatric: COMPLAINS OF: Anxiety, DENIES: Confusion (Prachi Aldrich) GI Exam Vitals I&O Vital Signs Date Time Temp Pulse Resp B/P (MAP) Pulse Ox O2 Delivery O2 Flow Rate FiO2 05/14/17 11:50 99.1 108 20 112/84 (93) 95 05/14/17 08:00 102 05/14/17 07:50 98.1 103 20 133/98 (110) 95 05/14/17 04:00 96.0 105 18 140/95 (110) 94 05/14/17 00:47 16 05/14/17 00:00 96.2 96 18 134/93 (107) 93 05/13/17 22:31 97.1 95 18 113/80 (91) 95 05/13/17 22:04 05/13/17 20:23 93 18 120/81 (94) 96 05/13/17 17:49 96 18 124/84 (97) 95 Room Air I/O 05/13/17 05/13/17 05/13/17 05/14/17 05/14/17 05/14/17 06:59 14:59 22:59 06:59 14:59 22:59 Intake Total 1100 ml 120 ml 300 ml Balance 1100 ml 120 ml 300 ml Intake Oral 120 ml IV Total 1100 ml 300 ml Imaging Last Impressions Cholangiopancreatography MRI 05/14/17 0000 Signed Impressions: Service Date/Time: Sunday, May 14, 2017 09:13 - CONCLUSION: 1. There is definite evidence of pancreatitis with inflammatory changes and fluid in the upper abdomen. 2. There is a focal nonspecific low signal lesion in head of pancreas measuring 2.5 x 1.5 cm without abnormal enhancement. The distal common bile duct at this level is narrowed suggestive of a stricture. The common bile duct is dilated at 1.8 cm. A focal mass in the head of the pancreas would be a primary consideration. However, there is also diffuse inflammatory changes involving the pancreas as well as inflammatory changes in the upper abdomen indicating pancreatitis which I believe confuses the issue. When the inflammatory changes associated with pancreatitis have resolved, ERCP would be recommended for further evaluation of this area. Sandro London MD Chest X-Ray 05/13/17 1317 Signed Impressions: Service Date/Time: Saturday, May 13, 2017 13:33 - CONCLUSION: Underinflation with atelectasis at the lung bases. Otherwise, no acute finding is identified. No free air is seen. Scotty Ball MD Abdomen/Pelvis CT 05/13/17 1317 Signed Impressions: Service Date/Time: Saturday, May 13, 2017 17:29 - CONCLUSION: 1. Cirrhosis. 2. Findings suggesting acute pancreatitis with large pseudocyst measuring 7.7 x 5.8 x 2.8 cm. 3. Low density mass involving the head of the pancreas. Measuring 2.1 x 1.8 x 1.7 cm. I'm concerned this relates to malignancy. There is clearly some mass effect on the pancreatic duct which is mildly dilated within the body and tail measuring 4 mm. Consider MRI to further evaluate. 4. Ileus type pattern. 5. A small focus of air and fluid directly adjacent to the sigmoid colon. I am unsure if this relates to a very large diverticulum or to a contained microperforation. 6. Right basilar atelectasis. Tang Garcia Jr., MD Laboratory Test 05/14/17 07:10 White Blood Count 23.4 TH/MM3 Red Blood Count 3.57 MIL/MM3 Hemoglobin 11.1 GM/DL Hematocrit 33.0 % Mean Corpuscular Volume 92.3 FL Mean Corpuscular Hemoglobin 31.1 PG Mean Corpuscular Hemoglobin Concent 33.7 % Red Cell Distribution Width 14.2 % Platelet Count 220 TH/MM3 Mean Platelet Volume 9.2 FL Neutrophils (%) (Auto) 86.4 % Lymphocytes (%) (Auto) 2.9 % Monocytes (%) (Auto) 10.2 % Eosinophils (%) (Auto) 0.4 % Basophils (%) (Auto) 0.1 % Neutrophils # (Auto) 20.2 TH/MM3 Lymphocytes # (Auto) 0.7 TH/MM3 Monocytes # (Auto) 2.4 TH/MM3 Eosinophils # (Auto) 0.1 TH/MM3 Basophils # (Auto) 0.0 TH/MM3 CBC Comment AUTO DIFF Differential Total Cells Counted 100 Neutrophils % (Manual) 86 % Band Neutrophils % 1 % Monocytes % 10 % Neutrophils # (Manual) 21.1 TH/MM3 Metamyelocytes 2 % Myelocytes 1 % Differential Comment FINAL DIFF MANUAL Toxic Granulation 2+ Platelet Estimate NORMAL Platelet Morphology Comment ENLARGED Target Cells 1+ Blood Urea Nitrogen 8 MG/DL Creatinine 0.48 MG/DL Random Glucose 153 MG/DL Total Protein 6.5 GM/DL Albumin 1.8 GM/DL Calcium Level 8.0 MG/DL Alkaline Phosphatase 530 U/L Aspartate Amino Transf (AST/SGOT) 60 U/L Alanine Aminotransferase (ALT/SGPT) 10 U/L Total Bilirubin 1.0 MG/DL Sodium Level 130 MEQ/L Potassium Level 2.7 MEQ/L Chloride Level 89 MEQ/L Carbon Dioxide Level 31.4 MEQ/L Anion Gap 10 MEQ/L Estimat Glomerular Filtration Rate 141 ML/MIN Lipase 3258 U/L Date/Time Source Procedure Growth Status 05/13/17 20:23 Blood Peripheral Aerobic Blood Culture - Preliminary NO GROWTH IN 1 DAY Resulted 05/13/17 20:23 Blood Peripheral Anaerobic Blood Culture - Preliminary NO GROWTH IN 1 DAY Resulted Physical Examination GEN: Ill/malnourished appearing HEENT: Normocephalic; atraumatic; no jaundice. CHEST: CTA, diminished CARDIAC: Regular, tachycardic ABDOMEN: Firm, distended, diffuse tenderness, (+) BS. NGT with large amount of dark bilious material. EXTREMITIES: No clubbing, cyanosis, or edema. SKIN: Normal; no rash; no jaundice. MANUFACTURING RECRUITER: No focal deficits; alert and oriented times three. (Prachi Aldrich) Assessment and Plan Plan ASSESSMENT: - Pancreatitis with large pseudocyst, pancreatic head mass. CT scan of the abdomen and pelvis with IV contrast (05/13/17) and this revealed cirrhosis, findings suggesting acute pancreatitis with large pseudocyst measuring 7.7 x 5.8 x 2.8 cm. Low density mass involving the head of the pancreas. Measuring 2.1 x 1.8 x 1.7 cm. I'm concerned this relates to malignancy. There is clearly some mass effect of the pancreatic duct which is mildly dilated within the body and spell measuring 4 mm. Consider MRI to further evaluate. Ileus type pattern. A small focus of air and fluid directly adjacent to the sigmoid colon. I am unsure if this relates to a very large I've reticulin or tic contained microperforation. Right basilar atelectasis. MRCP with and without contrast (05/14/17)----> there is definite evidence of pancreatitis with inflammatory changes and fluid in the upper abdomen. There is a focal nonspecific low signal lesion in the head of the pancreas measuring 2.5 x 1.5 cm without abnormal enhancement. The distal common bile duct at this level is narrowed suggestive of a stricture. The common bile duct is dilated at 1.8 cm. A focal mass in the head of the pancreas would be a primary consideration. However there is also diffuse inflammatory changes involving then pancreas as well as inflammatory changes in the abdomen indicating pancreatitis which I believe confuses the issue. When the inflammatory changes associated with pancreatitis have resolved, ERCP would be recommended for further evaluation of this area. WBC 23.4, Lipase 3258, CEA, Ca19-9 pending. LFTs are not obstructive. NPO. NGT to LIWS. GS following. She has a large pseudocyst and pancreatic head mass, although it is unclear if this an inflammatory mass r/t pancreatitis vs. malignant mass at this time. Will need to d/w Dr. Child possible EUS +/- ERCP for further evaluation. At this point, continue treatment of pancreatitis. Cipro/Flagyl, IVF, PPI - Abdominal distention, n/v. Likely related to above. NGT to LIWS, having mod to large amount bilious output PPI. - Leukocytosis. WBC 23.4. Bcx no growth 1 day. Cipro/flagyl - Electrolyte abnormalities. Na 130, K+ 2.7. Replacement per attending. - Anemia, no acute blood loss. HH 11.1/33.0. - ETOH abuse. DT precautions per attending. - S/P recent hospitalization at [facility] for large complex pelvic abscess with concern for possible perforated Meckel's diverticulum. S/P exploration with washout and drainage of abscess with drain placement on (04/17/17) with Dr. Nichole. PLAN: - NPO- occasional ice chip to moisten mouth - NGT to LIWS - Cont. Protonix - Cont. Cipro/Flagyl - Await BCx - Await Ca19-9, CEA - Monitor labs - Will need to discuss possible EUS +/- ERCP with Dr. Child - Supportive care - Further recommendations to follow based on results of above (Prachi Aldrich) Physician Comments Seen and examined, plan as above, will follow up with you . Further plan to follow. (Marcelo Busch MD) Prachi Aldrich May 14, 2017 15:46 Marcelo Busch MD May 14, 2017 19:26
--- NOTE | 2017-05-14 16:47 | MB ---
cc: RAFAEL GARAY MD DATE OF CONSULTATION: 05/14/2017. REASON FOR CONSULTATION: Patient known to service, abdominal pain. History of bowel resection. HISTORY OF PRESENT ILLNESS: The patient is a 41-year-old female with history of EtOH abuse, seizures, smoking who presented to the emergency department with increased abdominal distension and pain x1 week. She had a recent admission to [facility] several weeks ago with finding of large complex pelvic abscess with concern for possible perforated Meckel's. She underwent exploration, washout and drainage of abscess with drain placement on 04/17/2017 and progressed relatively well. However, she was discharged from the hospital and has been a failure to follow up with me in the office and developed recurrence of abdominal pain. 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 Also questionable concern for pancreatic head mass. She is noted per notes to be continuing to drink alcohol. However she does state she has cut down on consumption. PAST MEDICAL HISTORY: 1. EtOH abuse. 2. Seizures. 3. Tobacco. 4. Pelvic abscess. PAST SURGICAL HISTORY: 1. Appendectomy. 2. Exploratory laparotomy with small bowel resection due to perforation of abscess. ALLERGIES: 1. AMOXICILLIN. 2. PENICILLIN-G. MEDICATIONS: See the electronic medical record. FAMILY HISTORY: Denies diabetes or hypertension. SOCIAL HISTORY: Positive for EtOH, smoking, denies IV drug abuse. REVIEW OF SYSTEMS: GENERAL: The patient complained of subjective fevers. HEAD, EYES, EARS, NOSE, THROAT: Denies eye pain or ear pain. LUNGS: Denies cough or wheeze. HEART: Denies palpitations, chest pain. ABDOMEN: Complains of nausea, vomiting, abdominal pain, distension. : Denies dysuria, hematuria. ENDOCRINE: Denies polyuria, polydipsia. MUSCULOSKELETAL: Denies edema or swelling or arthralgia. NEUROLOGIC: Denies numbness or tingling. PSYCHIATRIC: EtOH abuse. PHYSICAL EXAMINATION: GENERAL: In no acute distress. VITAL SIGNS: Temperature 98.6, pulse 95, respirations 16, blood pressure 120/85, saturation in 98%. HEAD, EYES, EARS, NOSE, THROAT: Pupils equal, round and reactive to light and accommodation. LUNGS: Clear to auscultation with bilateral expansion. HEART: S1-S2 and regular rhythm. ABDOMEN: Distended. Positive tenderness to palpation. Diffuse well healing incisional scar. No sign of infection. EXTREMITIES: Moving all extremities. Warm. NEUROLOGIC: Alert and oriented times four. 5/5 noted in all extremities. LABORATORY AND DIAGNOSTIC DATA: WBC 23.4, hemoglobin 11.1, hematocrit 33, platelets 220,000. Sodium 130, potassium 2.7, CO2 89, BUN 8, creatinine 0.4, total bilirubin 1, AST 60, ALT 10, alkaline phosphatase 530, lipase 3258. CT was reviewed by myself: Cirrhosis, pancreatitis, large pseudocyst, a 7.7 cm mass involving head of pancreas 2.1 x 1.8 cm. Ileus pattern. ASSESSMENT: The patient is a 41-year-old female with chronic EtOH pancreatitis, acute onset set of abdominal pain, associated ileus, pancreatic head mass. PLAN: After a full workup, the patient with above-named issues including: Acute on chronic pancreatitis. The patient currently under management for this cleared with IV fluids, bowel rest and p.o. pain well and continued operative observation. The patient does have a large pseudocyst we will await GI recommendations. In the face of acute pancreatitis as long this patient's obstruction subsides, I would recommend observing the pseudocyst for now. In regards to her pancreatic head mass, difficult to discern given the severe inflammatory background of acute pancreatitis. At this point, will follow up on pending MRI and will recommend repeat evaluation of actually pseudocyst and pancreatic head mass once the pancreatitis has resolved. At this point we would be able to delineate the pancreatic head mass was clearly and also the patient would benefit from ERCP; again, will wait GI recommendations on this as well. Will check CEA and CA 19-9 tumor markers for evaluation at this time and continue to follow. For her acute pancreatitis, also will continue to trend the lipase. In regards to the patient's likely ileus at this time and not necessarily mechanical bowel obstruction, the patient currently Has an NG tube for decompression. Agree with this management and will continue to follow and evaluate with abdominal exams and x-rays and await bowel function. Further continue IV fluids correcting electrolytes and assisting with pain control. Thank you for the consultation. MD ESPERANZA Noble/CHANTE /3:24 PM /4:27 PM
[2017-05-15] VITALS (7 sets, daily range): BP systolic 101–120; BP diastolic 65–85; PULSE 107–112; RESP 16–20; TEMP 96.6–98.8; O2SAT 91–97
[2017-05-15] MEDS: HYDROmorphone HCL PF 1 MG/ML VIAL IV PRN ×6 (00:56→20:53)
[2017-05-15] MEDS: metroNIDAZOLE 500 MG INJ 100 ML IV SCH ×3 (04:59→22:31)
[2017-05-15 07:46] LABS: AUTOMATED NEUTROPHIL # 13.5 TH/MM3 (1.8-7.7); BASOPHIL # 0.1 TH/MM3 (0-0.2); BASOPHIL % 0.3 % (0.0-2.0); EOSINOPHIL # 0.7 TH/MM3 (0-0.4); EOSINOPHIL % 3.8 % (0.0-4.0); HEMATOCRIT 27.9 % (35.0-46.0); LYMPH % 8.6 % (9.0-44.0); LYMPHOCYTE # 1.6 TH/MM3 (1.0-4.8); MEAN CELL VOLUME 94.1 FL (80.0-100.0); MEAN CORPUSCULAR HEMOGLOBIN 31.1 PG (27.0-34.0); MEAN CORPUSCULAR HGB CONC 33.1 % (32.0-36.0); MONO % 12.1 % (0.0-8.0); NEUT % 75.2 % (16.0-70.0); PLATELET COUNT 195 TH/MM3 (150-450); RED BLOOD COUNT 2.96 MIL/MM3 (4.00-5.30); RED CELL DISTRIBUTION WIDTH 14.4 % (11.6-17.2)
[2017-05-15 07:52] LABS: HEMO FLAGS AUTO DIFF
[2017-05-15 08:06] LABS: ANION GAP 8 MEQ/L (5-15); AST (GOT) 47 U/L (15-37); BICARBONATE 29.4 MEQ/L (21.0-32.0); BLOOD UREA NITROGEN 10 MG/DL (7-18); CHLORIDE 95 MEQ/L (98-107); GLOMERULAR FILTRATION RATE 160 ML/MIN (>89); MAGNESIUM 2.1 MG/DL (1.5-2.5); POTASSIUM 3.2 MEQ/L (3.5-5.1); SODIUM (NA) 132 MEQ/L (136-145)
[2017-05-15 08:08] LABS: ALT (GPT) 9 U/L (10-53)
[2017-05-15 08:10] LABS: ALKALINE PHOSPHATASE 376 U/L (45-117); TOTAL BILIRUBIN ADULT 1.2 MG/DL (0.2-1.0)
[2017-05-15] MEDS: SODIUM CHLORIDE 0.9% FLUSH 10 ML FLUSH IV FLUSH SCH ×2 (09:00→20:58)
[2017-05-15 09:09] LABS: BANDS 4 % (0-6); METAMYELOCYTES 1 % (0-1)
[2017-05-15 09:14] LABS: EOSINOPHILS 7 % (0-4); MYELOCYTES 2 % (0-0); NEUTROPHIL # MANUAL DIFF 15.3 TH/MM3 (1.8-7.7); POLYS (SEG NEUTROPHILS) 78 % (16-70); TARGET CELLS 1+ (NORMAL); WBC DIFF SAMPLE 100
[2017-05-15 09:15] LABS: PLATELET ESTIMATE SMEAR NORMAL (NORMAL); PLATELET MORPHOLOGY ENLARGED (NORMAL); TOXIC GRANULATION 1+ (NORMAL)
[2017-05-15 09:16] LABS: SCAN/DIFF FINAL DIFF MANUAL
--- NOTE | 2017-05-15 09:28 | HHI.PR ---
Subjective Remarks Follow up abdominal pain/distention. Patient requesting more ice chips. Abdominal pain and distention are slightly less today. NG tube in place. Objective Vitals Vital Signs Date Time Temp Pulse Resp B/P (MAP) Pulse Ox O2 Delivery O2 Flow Rate FiO2 05/15/17 07:30 98.8 107 17 101/74 (83) 91 05/15/17 04:46 16 05/15/17 04:00 98.0 108 20 107/70 (82) 93 05/15/17 00:00 97.1 107 20 104/65 (78) 97 05/14/17 23:56 108 05/14/17 20:00 97.6 114 20 104/77 (86) 92 05/14/17 15:30 97.6 115 20 115/76 (89) 92 05/14/17 15:00 103 05/14/17 11:50 99.1 108 20 112/84 (93) 95 I/O 05/14/17 05/14/17 05/14/17 05/15/17 05/15/17 05/15/17 07:00 15:00 23:00 07:00 15:00 23:00 Intake Total 120 ml 300 ml 1000 ml 0 ml Output Total 550 ml 1800 ml 250 ml Balance 120 ml -250 ml -800 ml -250 ml Intake Oral 120 ml 0 ml 0 ml 0 ml IV Total 300 ml 1000 ml Output Urine Total 550 ml 800 ml 250 ml Gastric Drainage Total 500 ml Emesis 500 ml # Bowel Movements 0 Result Diagram: 05/15/17 0718 05/15/17 0718 Imaging Last Impressions Cholangiopancreatography MRI 05/14/17 0000 Signed Impressions: Service Date/Time: Sunday, May 14, 2017 09:13 - CONCLUSION: 1. There is definite evidence of pancreatitis with inflammatory changes and fluid in the upper abdomen. 2. There is a focal nonspecific low signal lesion in head of pancreas measuring 2.5 x 1.5 cm without abnormal enhancement. The distal common bile duct at this level is narrowed suggestive of a stricture. The common bile duct is dilated at 1.8 cm. A focal mass in the head of the pancreas would be a primary consideration. However, there is also diffuse inflammatory changes involving the pancreas as well as inflammatory changes in the upper abdomen indicating pancreatitis which I believe confuses the issue. When the inflammatory changes associated with pancreatitis have resolved, ERCP would be recommended for further evaluation of this area. Sandro London MD Chest X-Ray 05/13/177 Signed Impressions: Service Date/Time: Saturday, May 13, 2017 13:33 - CONCLUSION: Underinflation with atelectasis at the lung bases. Otherwise, no acute finding is identified. No free air is seen. Scotty Ball MD Abdomen/Pelvis CT 05/13/171316 Signed Impressions: Service Date/Time: Saturday, May 13, 2017 17:29 - CONCLUSION: 1. Cirrhosis. 2. Findings suggesting acute pancreatitis with large pseudocyst measuring 7.7 x 5.8 x 2.8 cm. 3. Low density mass involving the head of the pancreas. Measuring 2.1 x 1.8 x 1.7 cm. I'm concerned this relates to malignancy. There is clearly some mass effect on the pancreatic duct which is mildly dilated within the body and tail measuring 4 mm. Consider MRI to further evaluate. 4. Ileus type pattern. 5. A small focus of air and fluid directly adjacent to the sigmoid colon. I am unsure if this relates to a very large diverticulum or to a contained microperforation. 6. Right basilar atelectasis. Tang Garcia Jr., MD Objective Remarks General: No acute distress. NG tube in place. Heart: Regular rate and rhythm. No murmur. Lungs: Clear to auscultation bilaterally. No wheezes, rales, or rhonchi. Breathing is nonlabored. Abdomen: Moderately distended. Tender to palpation diffusely. Extremities: No lower extremity edema. Psych: Alert and oriented. Procedures None Urinary Catheter: Yes Assessment to: Continue Franklin insert reason: Obstruction/Retention Vascular Central Line Catheter: No A/P Problem List: (1) Sepsis ICD Code: A41.9 - Sepsis, unspecified organism (2) Pancreatitis ICD Code: K85.90 - Acute pancreatitis without necrosis or infection, unspecified (3) Pancreatic mass ICD Code: K86.9 - Disease of pancreas, unspecified (4) S/P small bowel resection ICD Code: Z90.49 - Acquired absence of other specified parts of digestive tract (5) Hypokalemia ICD Code: E87.6 - Hypokalemia Status: Acute (6) Alcohol abuse ICD Code: F10.10 - Alcohol abuse Status: Chronic (7) Tobacco abuse ICD Code: Z72.0 - Tobacco use Assessment and Plan 1. Sepsis: Source likely abdominal. WBCs are a little better today. Blood cultures are negative so far. Continue IV antibiotics. 2. Pancreatitis: Lipase is elevated. Keep NPO. CT shows acute pancreatitis with pseudocyst. Appreciate GI and general surgery recommendations. 3. Pancreatic mass: MRI report noted. Appreciate surgery, GI recommendations. 4. Abdominal pain, distention: Continue NG tube to low intermittent suction. 5. S/P small bowel resection: Patient has not followed up post-op. [place] removed in ER. Management per general surgery. 6. Hypokalemia: Supplement potassium. 7. Tobacco abuse: Counselled. 8. DVT prophylaxis: SKYLER Mcnulty. Avoid chemical prophylaxis secondary to coagulopathy, possible need for surgical intervention. Agustín Mora MD May 15, 2017 09:27
[2017-05-15] MEDS: CIPROFLOXACIN 400 MG PREMIX 200 ML IV SCH ×2 (09:35→20:54)
[2017-05-15] MEDS: PANTOPRAZOLE SODIUM 40 MG VIAL IV PUSH SCH ×2 (09:35→20:57)
[2017-05-15] MEDS: NS + KCL 20 MEQ INJ 1,000 ML IV SCH ×2 (09:46→20:54)
[2017-05-15 10:36] LABS: BETA HCG QUANT LESS THAN 1 MIU/ML (0-5)
--- NOTE | 2017-05-15 10:41 | RADRPT ---
EXAM DATE/TIME: 05/15/2017 10:23 [place] COMPARISON: CHEST SINGLE AP, May 13, 2017, 13:33. INDICATIONS : Evaluate NG tube placement MEDICAL HISTORY : hx of subdural hematoma, seizure SURGICAL HISTORY : None. ENCOUNTER: Subsequent ACUITY: 3 days PAIN SCORE: 0/10 LOCATION: chest FINDINGS: Portable view of the chest demonstrates an NG tube overlying the midline chest with the proximal port below the level of the gastroesophageal junction. There is stable bilateral basilar airspace atelect asis versus consolidation. The heart size is at the upper limits of normal. Pulmonary vasculature is normal in caliber. CONCLUSION: NG tube appears appropriate in position. Stable basilar airspace disease. Dorothy Zepeda MD on May 15, 2017 at 10:38 Board Certified Radiologist. This report was verified electronically.
[2017-05-15] MEDS: THIAMINE INJ 100 MG in SODIUM CHLORIDE 0.9% INJ 100 ML IV SCH (12:14)
[2017-05-15] MEDS: MULTIVITAMIN INJ 10 ML, FOLIC ACID INJ 1 MG in SODIUM CHLORID 0.9% 500 ML INJ 500 ML IV SCH (13:24)
--- NOTE | 2017-05-15 17:31 | HHI.PR ---
Subjective Subjective Notes feels better, c/o back pain Objective Vitals/I&O Vital Signs Date Time Temp Pulse Resp B/P (MAP) Pulse Ox O2 Delivery O2 Flow Rate FiO2 05/15/17 15:05 97.6 112 16 119/78 (92) 93 05/13/17 17:49 Room Air Labs Laboratory Tests Test 05/15/17 07:18 White Blood Count 18.0 Red Blood Count 2.96 Hemoglobin 9.2 Hematocrit 27.9 Mean Corpuscular Volume 94.1 Mean Corpuscular Hemoglobin 31.1 Mean Corpuscular Hemoglobin Concent 33.1 Red Cell Distribution Width 14.4 Platelet Count 195 Mean Platelet Volume 9.0 Neutrophils (%) (Auto) 75.2 Lymphocytes (%) (Auto) 8.6 Monocytes (%) (Auto) 12.1 Eosinophils (%) (Auto) 3.8 Basophils (%) (Auto) 0.3 Neutrophils # (Auto) 13.5 Lymphocytes # (Auto) 1.6 Monocytes # (Auto) 2.2 Eosinophils # (Auto) 0.7 Basophils # (Auto) 0.1 CBC Comment AUTO DIFF Differential Total Cells Counted 100 Neutrophils % (Manual) 78 Band Neutrophils % 4 Lymphocytes % 1 Monocytes % 7 Eosinophils % 7 Neutrophils # (Manual) 15.3 Metamyelocytes 1 Myelocytes 2 Differential Comment FINAL DIFF MANUAL Toxic Granulation 1+ Platelet Estimate NORMAL Platelet Morphology Comment ENLARGED Target Cells 1+ Blood Urea Nitrogen 10 Creatinine 0.43 Random Glucose 113 Total Protein 5.7 Albumin 1.7 Calcium Level 8.0 Magnesium Level 2.1 Alkaline Phosphatase 376 Aspartate Amino Transf (AST/SGOT) 47 Alanine Aminotransferase (ALT/SGPT) 9 Total Bilirubin 1.2 Sodium Level 132 Potassium Level 3.2 Chloride Level 95 Carbon Dioxide Level 29.4 Anion Gap 8 Estimat Glomerular Filtration Rate 160 Lactic Acid Level 0.8 Lipase 835 Human Chorionic Gonadotropin, Quant LESS THAN 1 Date/Time Source Procedure Growth Status 05/13/17 20:23 Blood Peripheral Aerobic Blood Culture - Preliminary NO GROWTH IN 2 DAYS Resulted 05/13/17 20:23 Blood Peripheral Anaerobic Blood Culture - Preliminary NO GROWTH IN 2 DAYS Resulted Abdomen: Other (distended, decreased BS, no peritonitis) A/P Assessment and Plan 42yo female s/p SBR and exLap, now with pancreatitis, hx EtOH. continue non- operative mgmt. NG, IVF, paz control. will follow Allan Canas MD May 15, 2017 17:31
[2017-05-16] VITALS (12 sets, daily range): BP systolic 113–131; BP diastolic 74–97; PULSE 101–120; RESP 16–20; TEMP 96.5–99.1; O2SAT 94–96
[2017-05-16] MEDS: HYDROmorphone HCL PF 1 MG/ML VIAL IV PRN ×6 (00:03→22:24)
[2017-05-16] MEDS: SODIUM CHLORIDE 0.9% FLUSH 10 ML FLUSH IV FLUSH PRN (00:05)
[2017-05-16] MEDS: metroNIDAZOLE 500 MG INJ 100 ML IV SCH ×3 (05:52→20:59)
[2017-05-16] MEDS: NS + KCL 20 MEQ INJ 1,000 ML IV SCH ×2 (08:36→20:00)
[2017-05-16] MEDS: CIPROFLOXACIN 400 MG PREMIX 200 ML IV SCH ×2 (08:36→22:25)
[2017-05-16] MEDS: SODIUM CHLORIDE 0.9% FLUSH 10 ML FLUSH IV FLUSH SCH ×2 (08:37→20:53)
[2017-05-16] MEDS: PANTOPRAZOLE SODIUM 40 MG VIAL IV PUSH SCH ×2 (08:37→20:52)
--- NOTE | 2017-05-16 09:22 | HHI.PR ---
Subjective Remarks Follow up abdominal pain, pancreatitis. Patient still having abdominal pain and distention. NG tube in place. No chest pain, dyspnea. Objective Vitals Vital Signs Date Time Temp Pulse Resp B/P (MAP) Pulse Ox O2 Delivery O2 Flow Rate FiO2 05/16/17 08:00 98.4 105 16 113/74 (87) 95 05/16/17 07:32 16 05/16/17 04:05 115 05/16/17 04:00 97.2 120 18 124/87 (99) 96 05/16/17 00:03 112 05/16/17 00:00 98.0 110 17 120/78 (92) 94 05/15/17 20:02 112 05/15/17 20:00 97.2 110 16 120/85 (97) 96 05/15/17 15:05 97.6 112 16 119/78 (92) 93 05/15/17 11:12 96.6 109 17 101/72 (82) 92 I/O 05/15/17 05/15/17 05/15/17 05/16/17 05/16/17 05/16/17 07:00 15:00 23:00 07:00 15:00 23:00 Intake Total 0 ml 1980 ml 110 ml 2080 ml Output Total 250 ml 700 ml 150 ml Balance -250 ml 1280 ml -40 ml 2080 ml Intake Oral 0 ml 120 ml 0 ml IV Total 1860 ml 110 ml 2080 ml Output Urine Total 250 ml 550 ml 150 ml Gastric Drainage Total 150 ml Result Diagram: 05/15/17 0718 05/15/17 0718 Imaging Last Impressions Chest X-Ray 05/15/17 0000 Signed Impressions: Service Date/Time: Monday, May 15, 2017 10:23 - CONCLUSION: NG tube appears appropriate in position. Stable basilar airspace disease. Dorothy Zepeda MD Cholangiopancreatography MRI 05/14/17 0000 Signed Impressions: Service Date/Time: Sunday, May 14, 2017 09:13 - CONCLUSION: 1. There is definite evidence of pancreatitis with inflammatory changes and fluid in the upper abdomen. 2. There is a focal nonspecific low signal lesion in head of pancreas measuring 2.5 x 1.5 cm without abnormal enhancement. The distal common bile duct at this level is narrowed suggestive of a stricture. The common bile duct is dilated at 1.8 cm. A focal mass in the head of the pancreas would be a primary consideration. However, there is also diffuse inflammatory changes involving the pancreas as well as inflammatory changes in the upper abdomen indicating pancreatitis which I believe confuses the issue. When the inflammatory changes associated with pancreatitis have resolved, ERCP would be recommended for further evaluation of this area. Sandro London MD Abdomen/Pelvis CT 05/13/17 1317 Signed Impressions: Service Date/Time: Saturday, May 13, 2017 17:29 - CONCLUSION: 1. Cirrhosis. 2. Findings suggesting acute pancreatitis with large pseudocyst measuring 7.7 x 5.8 x 2.8 cm. 3. Low density mass involving the head of the pancreas. Measuring 2.1 x 1.8 x 1.7 cm. I'm concerned this relates to malignancy. There is clearly some mass effect on the pancreatic duct which is mildly dilated within the body and tail measuring 4 mm. Consider MRI to further evaluate. 4. Ileus type pattern. 5. A small focus of air and fluid directly adjacent to the sigmoid colon. I am unsure if this relates to a very large diverticulum or to a contained microperforation. 6. Right basilar atelectasis. Tang Garcia Jr., MD Objective Remarks General: No acute distress. NG tube in place. Heart: Regular rate and rhythm. No murmur. Lungs: Clear to auscultation bilaterally. No wheezes, rales, or rhonchi. Breathing is nonlabored. Abdomen: Moderately distended. Tender to palpation diffusely. Decreased bowel sounds. Extremities: No lower extremity edema. Psych: Alert and oriented. Procedures None Urinary Catheter: Yes Assessment to: Continue Franklin insert reason: Obstruction/Retention Vascular Central Line Catheter: No A/P Problem List: (1) Sepsis ICD Code: A41.9 - Sepsis, unspecified organism (2) Pancreatitis ICD Code: K85.90 - Acute pancreatitis without necrosis or infection, unspecified (3) Pancreatic mass ICD Code: K86.9 - Disease of pancreas, unspecified (4) S/P small bowel resection ICD Code: Z90.49 - Acquired absence of other specified parts of digestive tract (5) Hypokalemia ICD Code: E87.6 - Hypokalemia Status: Acute (6) Alcohol abuse ICD Code: F10.10 - Alcohol abuse Status: Chronic (7) Tobacco abuse ICD Code: Z72.0 - Tobacco use Assessment and Plan 1. Sepsis: Source likely abdominal. Blood cultures are negative so far. Continue IV antibiotics. Labs are pending. 2. Pancreatitis: Lipase is trending down. Keep NPO. CT shows acute pancreatitis with pseudocyst. Appreciate GI and general surgery recommendations. 3. Pancreatic mass: MRI report noted. Appreciate surgery, GI recommendations. 4. Abdominal pain, distention: Continue NG tube to low intermittent suction. 5. S/P small bowel resection: Patient has not followed up post-op. [place] removed in ER. Management per general surgery. 6. Hypokalemia: Supplement potassium. Labs are pending. 7. Tobacco abuse: Counselled. 8. DVT prophylaxis: SKYLER Mcnulty. Avoid chemical prophylaxis secondary to coagulopathy, possible need for surgical intervention. Agustín Mora MD May 16, 2017 09:22
[2017-05-16] MEDS: MULTIVITAMIN INJ 10 ML, FOLIC ACID INJ 1 MG in SODIUM CHLORID 0.9% 500 ML INJ 500 ML IV SCH (10:55)
[2017-05-16 11:03] LABS: AUTOMATED NEUTROPHIL # 16.6 TH/MM3 (1.8-7.7); BASOPHIL # 0.1 TH/MM3 (0-0.2); BASOPHIL % 0.3 % (0.0-2.0); EOSINOPHIL # 0.4 TH/MM3 (0-0.4); EOSINOPHIL % 2.2 % (0.0-4.0); HEMATOCRIT 23.9 % (35.0-46.0); LYMPH % 6.2 % (9.0-44.0); LYMPHOCYTE # 1.2 TH/MM3 (1.0-4.8); MEAN CELL VOLUME 93.5 FL (80.0-100.0); MEAN CORPUSCULAR HEMOGLOBIN 30.4 PG (27.0-34.0); MEAN CORPUSCULAR HGB CONC 32.5 % (32.0-36.0); MONO % 8.3 % (0.0-8.0); PLATELET COUNT 218 TH/MM3 (150-450); RED BLOOD COUNT 2.56 MIL/MM3 (4.00-5.30); RED CELL DISTRIBUTION WIDTH 14.5 % (11.6-17.2)
[2017-05-16 11:05] LABS: HEMO FLAGS AUTO DIFF
[2017-05-16 11:27] LABS: BICARBONATE 25.9 MEQ/L (21.0-32.0); MAGNESIUM 1.6 MG/DL (1.5-2.5); POTASSIUM 3.2 MEQ/L (3.5-5.1)
[2017-05-16] MEDS ORDERED: POTASSIUM CHLOR 20 MEQ PREMIX 100 ML IV ONE (12:15)
[2017-05-16] MEDS: THIAMINE INJ 100 MG in SODIUM CHLORIDE 0.9% INJ 100 ML IV SCH (12:30)
[2017-05-16 14:04] LABS: BANDS 5 % (0-6); EOSINOPHILS 4 % (0-4); METAMYELOCYTES 3 % (0-1); MYELOCYTES 1 % (0-0); NEUTROPHIL # MANUAL DIFF 18.2 TH/MM3 (1.8-7.7); POLYS (SEG NEUTROPHILS) 82 % (16-70); WBC DIFF SAMPLE 100
[2017-05-16 14:05] LABS: PLATELET ESTIMATE SMEAR NORMAL (NORMAL); PLATELET MORPHOLOGY NORMAL (NORMAL); SCAN/DIFF FINAL DIFF MANUAL; TARGET CELLS 1+ (NORMAL); TOXIC GRANULATION 2+ (NORMAL)
--- NOTE | 2017-05-16 14:34 | HHI.PR ---
Subjective Subjective Notes ng in place, still with abdominal pain wbc trending up, lipase trending down Objective Vitals/I&O Vital Signs Date Time Temp Pulse Resp B/P (MAP) Pulse Ox O2 Delivery O2 Flow Rate FiO2 05/16/17 10:53 99.1 107 18 125/83 (97) 95 05/13/17 17:49 Room Air Labs Laboratory Tests Test 05/16/17 10:26 White Blood Count 20.0 Red Blood Count 2.56 Hemoglobin 7.8 Hematocrit 23.9 Mean Corpuscular Volume 93.5 Mean Corpuscular Hemoglobin 30.4 Mean Corpuscular Hemoglobin Concent 32.5 Red Cell Distribution Width 14.5 Platelet Count 218 Mean Platelet Volume 8.4 Neutrophils (%) (Auto) 83.0 Lymphocytes (%) (Auto) 6.2 Monocytes (%) (Auto) 8.3 Eosinophils (%) (Auto) 2.2 Basophils (%) (Auto) 0.3 Neutrophils # (Auto) 16.6 Lymphocytes # (Auto) 1.2 Monocytes # (Auto) 1.7 Eosinophils # (Auto) 0.4 Basophils # (Auto) 0.1 CBC Comment AUTO DIFF Differential Total Cells Counted 100 Neutrophils % (Manual) 82 Band Neutrophils % 5 Lymphocytes % 2 Monocytes % 3 Eosinophils % 4 Neutrophils # (Manual) 18.2 Metamyelocytes 3 Myelocytes 1 Differential Comment FINAL DIFF MANUAL Toxic Granulation 2+ Platelet Estimate NORMAL Platelet Morphology Comment NORMAL Target Cells 1+ Blood Urea Nitrogen 8 Creatinine 0.31 Random Glucose 95 Calcium Level 7.6 Magnesium Level 1.6 Sodium Level 134 Potassium Level 3.2 Chloride Level 98 Carbon Dioxide Level 25.9 Anion Gap 10 Estimat Glomerular Filtration Rate 234 Lipase 575 Date/Time Source Procedure Growth Status 05/13/17 20:23 Blood Peripheral Aerobic Blood Culture - Preliminary NO GROWTH IN 3 DAYS Resulted 05/13/17 20:23 Blood Peripheral Anaerobic Blood Culture - Preliminary NO GROWTH IN 3 DAYS Resulted Cardiovascular: Regular Abdomen: Other (soft distended) A/P Assessment and Plan hx sbr, now with pancreatitis, etoh abuse, pancreatic pseudocyst, mass PLAN Ng sxn observation trend lipase wbc trending up- continue to monitor, may need reCT in a few days will follow Jose Nichole MD May 16, 2017 14:34
--- NOTE | 2017-05-16 16:32 | HHI.GIFU ---
Subjective Remarks Resting in bed. Afebrile. NGT to suction- small amount drainage. Continues to have abdominal pain. No bm, but passing flatus. (Prachi Aldrich) Objective Vitals I&O Vital Signs Date Time Temp Pulse Resp B/P (MAP) Pulse Ox O2 Delivery O2 Flow Rate FiO2 05/16/17 12:00 105 05/16/17 10:53 99.1 107 18 125/83 (97) 95 05/16/17 08:00 98.4 105 16 113/74 (87) 95 05/16/17 07:32 16 05/16/17 07:00 109 05/16/17 04:05 115 05/16/17 04:00 97.2 120 18 124/87 (99) 96 05/16/17 00:03 112 05/16/17 00:00 98.0 110 17 120/78 (92) 94 05/15/17 20:02 112 05/15/17 20:00 97.2 110 16 120/85 (97) 96 I/O 05/15/17 05/15/17 05/15/17 05/16/17 05/16/17 05/16/17 07:00 15:00 23:00 07:00 15:00 23:00 Intake Total 0 ml 1980 ml 110 ml 2180 ml Output Total 250 ml 700 ml 150 ml Balance -250 ml 1280 ml -40 ml 2180 ml Intake Oral 0 ml 120 ml 0 ml IV Total 1860 ml 110 ml 2180 ml Output Urine Total 250 ml 550 ml 150 ml Gastric Drainage Total 150 ml Laboratory Laboratory Tests Test 05/16/17 10:26 White Blood Count 20.0 Red Blood Count 2.56 Hemoglobin 7.8 Hematocrit 23.9 Mean Corpuscular Volume 93.5 Mean Corpuscular Hemoglobin 30.4 Mean Corpuscular Hemoglobin Concent 32.5 Red Cell Distribution Width 14.5 Platelet Count 218 Mean Platelet Volume 8.4 Neutrophils (%) (Auto) 83.0 Lymphocytes (%) (Auto) 6.2 Monocytes (%) (Auto) 8.3 Eosinophils (%) (Auto) 2.2 Basophils (%) (Auto) 0.3 Neutrophils # (Auto) 16.6 Lymphocytes # (Auto) 1.2 Monocytes # (Auto) 1.7 Eosinophils # (Auto) 0.4 Basophils # (Auto) 0.1 CBC Comment AUTO DIFF Differential Total Cells Counted 100 Neutrophils % (Manual) 82 Band Neutrophils % 5 Lymphocytes % 2 Monocytes % 3 Eosinophils % 4 Neutrophils # (Manual) 18.2 Metamyelocytes 3 Myelocytes 1 Differential Comment FINAL DIFF MANUAL Toxic Granulation 2+ Platelet Estimate NORMAL Platelet Morphology Comment NORMAL Target Cells 1+ Blood Urea Nitrogen 8 Creatinine 0.31 Random Glucose 95 Calcium Level 7.6 Magnesium Level 1.6 Sodium Level 134 Potassium Level 3.2 Chloride Level 98 Carbon Dioxide Level 25.9 Anion Gap 10 Estimat Glomerular Filtration Rate 234 Lipase 575 Date/Time Source Procedure Growth Status 05/13/17 20:23 Blood Peripheral Aerobic Blood Culture - Preliminary NO GROWTH IN 3 DAYS Resulted 05/13/17 20:23 Blood Peripheral Anaerobic Blood Culture - Preliminary NO GROWTH IN 3 DAYS Resulted Imaging Last Impressions Chest X-Ray 05/15/17 0000 Signed Impressions: Service Date/Time: Monday, May 15, 2017 10:23 - CONCLUSION: NG tube appears appropriate in position. Stable basilar airspace disease. Dorothy Zepeda MD Cholangiopancreatography MRI 05/14/17 0000 Signed Impressions: Service Date/Time: Sunday, May 14, 2017 09:13 - CONCLUSION: 1. There is definite evidence of pancreatitis with inflammatory changes and fluid in the upper abdomen. 2. There is a focal nonspecific low signal lesion in head of pancreas measuring 2.5 x 1.5 cm without abnormal enhancement. The distal common bile duct at this level is narrowed suggestive of a stricture. The common bile duct is dilated at 1.8 cm. A focal mass in the head of the pancreas would be a primary consideration. However, there is also diffuse inflammatory changes involving the pancreas as well as inflammatory changes in the upper abdomen indicating pancreatitis which I believe confuses the issue. When the inflammatory changes associated with pancreatitis have resolved, ERCP would be recommended for further evaluation of this area. Sandro London MD Abdomen/Pelvis CT 05/13/17 1317 Signed Impressions: Service Date/Time: Saturday, May 13, 2017 17:29 - CONCLUSION: 1. Cirrhosis. 2. Findings suggesting acute pancreatitis with large pseudocyst measuring 7.7 x 5.8 x 2.8 cm. 3. Low density mass involving the head of the pancreas. Measuring 2.1 x 1.8 x 1.7 cm. I'm concerned this relates to malignancy. There is clearly some mass effect on the pancreatic duct which is mildly dilated within the body and tail measuring 4 mm. Consider MRI to further evaluate. 4. Ileus type pattern. 5. A small focus of air and fluid directly adjacent to the sigmoid colon. I am unsure if this relates to a very large diverticulum or to a contained microperforation. 6. Right basilar atelectasis. Tang Garcia Jr., MD Physical Exam GEN: Ill/malnourished appearing HEENT: Normocephalic; atraumatic; no jaundice. CHEST: CTA, diminished CARDIAC: Regular, tachycardic ABDOMEN: Firm, distended, diffuse tenderness, (+) BS. NGT with small amount bilious material. EXTREMITIES: No clubbing, cyanosis, or edema. SKIN: Normal; no rash; no jaundice. [employer]: No focal deficits; alert and oriented times three. (Prachi Aldrich CHILD'S NURSE) Assessment and Plan Plan ASSESSMENT: - Pancreatitis with large pseudocyst, pancreatic head mass. CT scan of the abdomen and pelvis with IV contrast (05/13/17) and this revealed cirrhosis, findings suggesting acute pancreatitis with large pseudocyst measuring 7.7 x 5.8 x 2.8 cm. Low density mass involving the head of the pancreas. Measuring 2.1 x 1.8 x 1.7 cm. I'm concerned this relates to malignancy. There is clearly some mass effect of the pancreatic duct which is mildly dilated within the body and spell measuring 4 mm. Consider MRI to further evaluate. Ileus type pattern. A small focus of air and fluid directly adjacent to the sigmoid colon. I am unsure if this relates to a very large I've reticulin or tic contained microperforation. Right basilar atelectasis. MRCP with and without contrast (05/14/17)----> there is definite evidence of pancreatitis with inflammatory changes and fluid in the upper abdomen. There is a focal nonspecific low signal lesion in the head of the pancreas measuring 2.5 x 1.5 cm without abnormal enhancement. The distal common bile duct at this level is narrowed suggestive of a stricture. The common bile duct is dilated at 1.8 cm. A focal mass in the head of the pancreas would be a primary consideration. However there is also diffuse inflammatory changes involving then pancreas as well as inflammatory changes in the abdomen indicating pancreatitis which I believe confuses the issue. When the inflammatory changes associated with pancreatitis have resolved, ERCP would be recommended for further evaluation of this area. WBC 23.4, Lipase 3258, CEA, Ca19-9 26.7. NPO. NGT to LIWS. GS following. She has a large pseudocyst and pancreatic head mass, although it is unclear if this an inflammatory mass r/t pancreatitis vs. malignant mass at this time. D/W Dr. Child---> high risk for procedure, as her INR is high. Will plan for EUS once the fluid in abdomen has matured. Possible ERCP pending EUS results. Will need repeat imaging. Cipro/Flagyl, IVF, PPI - Abdominal distention, n/v. Likely related to above. NGT to LIWS, small amount bilious output PPI. GS following - Leukocytosis. WBC 20.0. Bcx no growth 3 day. Cipro/flagyl - Electrolyte abnormalities. Replacement per attending. - Anemia, no acute blood loss. HH trending down. 7.8/23.9. Hemoccult stool. - ETOH abuse. DT precautions per attending. - S/P recent hospitalization at [facility] for large complex pelvic abscess with concern for possible perforated Meckel's diverticulum. S/P exploration with washout and drainage of abscess with drain placement on (04/17/17) with Dr. Nichole. PLAN: - NPO- occasional ice chip to moisten mouth - NGT to LIWS - Dietary evaluation for TPN recommendations - Cont. Protonix - Cont. Cipro/Flagyl - Await BCx - Hemoccult stool - Monitor HH - Transfuse as necessary - CBC, PT/INR, CMP in am - Supportive care - Further recommendations to follow based on results of above - Possible EUS once fluid matures, possible ERCP pending EUS results - Pt seen and examined by Dr. Busch and myself and this note is written on his behalf (Prachi Aldrich) Physician Comments Seen and examined, plan as above, will follow up with you. (Marcelo Busch MD) Prachi Aldrich May 16, 2017 16:32 Marcelo Busch MD May 16, 2017 21:53
[2017-05-17] VITALS (11 sets, daily range): BP systolic 114–138; BP diastolic 79–96; PULSE 101–111; RESP 18–20; TEMP 96.5–98.3; O2SAT 93–98
[2017-05-17] MEDS: HYDROmorphone HCL PF 1 MG/ML VIAL IV PRN ×8 (01:25→22:15)
[2017-05-17] MEDS: metroNIDAZOLE 500 MG INJ 100 ML IV SCH ×3 (04:16→21:18)
[2017-05-17] MEDS: SODIUM CHLORIDE 0.9% FLUSH 10 ML FLUSH IV FLUSH PRN (07:19)
[2017-05-17 08:46] LABS: INTERNATIONAL NORMALIZED RATIO 1.3 RATIO; PROTHROMBIN TIME - PATIENT 15.1 SEC (9.8-11.6)
[2017-05-17 08:50] LABS: AUTOMATED NEUTROPHIL # 13.6 TH/MM3 (1.8-7.7); BASOPHIL % 0.3 % (0.0-2.0); EOSINOPHIL # 0.3 TH/MM3 (0-0.4); EOSINOPHIL % 1.6 % (0.0-4.0); LYMPH % 8.7 % (9.0-44.0); LYMPHOCYTE # 1.5 TH/MM3 (1.0-4.8); MEAN CELL VOLUME 94.1 FL (80.0-100.0); MEAN CORPUSCULAR HEMOGLOBIN 31.4 PG (27.0-34.0); MEAN CORPUSCULAR HGB CONC 33.4 % (32.0-36.0); MONO % 8.7 % (0.0-8.0); NEUT % 80.7 % (16.0-70.0); PLATELET COUNT 227 TH/MM3 (150-450); RED BLOOD COUNT 2.44 MIL/MM3 (4.00-5.30); RED CELL DISTRIBUTION WIDTH 14.5 % (11.6-17.2); WHITE BLOOD COUNT 16.8 TH/MM3 (4.0-11.0)
[2017-05-17] MEDS: SODIUM CHLORIDE 0.9% FLUSH 10 ML FLUSH IV FLUSH SCH ×2 (09:00→21:21)
[2017-05-17 09:04] LABS: HEMO FLAGS AUTO DIFF
[2017-05-17 09:09] LABS: BICARBONATE 23.6 MEQ/L (21.0-32.0); MAGNESIUM 1.4 MG/DL (1.5-2.5); POTASSIUM 3.4 MEQ/L (3.5-5.1)
[2017-05-17] MEDS: CIPROFLOXACIN 400 MG PREMIX 200 ML IV SCH ×2 (09:32→22:21)
[2017-05-17] MEDS: PANTOPRAZOLE SODIUM 40 MG VIAL IV PUSH SCH ×2 (09:35→21:18)
[2017-05-17] MEDS ORDERED: MAGNESIUM SULFATE 1 GM PREMIX 100 ML IV ONE (09:45)
--- NOTE | 2017-05-17 10:12 | HHI.PR ---
Subjective Remarks Follow up abdominal pain. Patient states that her pain is unchanged. NG tube still to suction. No nausea/vomiting this morning. Objective Vitals Vital Signs Date Time Temp Pulse Resp B/P (MAP) Pulse Ox O2 Delivery O2 Flow Rate FiO2 05/17/17 08:00 98.2 108 19 119/83 (95) 95 05/17/17 04:27 111 05/17/17 04:00 98.3 111 18 115/82 (93) 94 05/17/17 00:03 97.5 110 18 114/79 (91) 93 05/17/17 00:01 109 05/16/17 20:49 97.6 106 18 124/85 (98) 95 05/16/17 20:18 109 05/16/17 16:00 96.5 107 20 131/97 (108) 95 05/16/17 15:00 101 05/16/17 12:00 105 05/16/17 10:53 99.1 107 18 125/83 (97) 95 I/O 05/16/17 05/16/17 05/16/17 05/17/17 05/17/17 05/17/17 07:00 15:00 23:00 07:00 15:00 23:00 Intake Total 110 ml 2680 ml 1371 ml 110 ml Output Total 150 ml 750 ml 250 ml Balance -40 ml 2680 ml 621 ml -140 ml Intake Oral 0 ml IV Total 110 ml 2680 ml 1371 ml 110 ml Output Urine Total 150 ml 750 ml 250 ml # Bowel Movements 0 Result Diagram: 05/17/17 0747 05/17/17 0747 Imaging Last Impressions Chest X-Ray 05/15/17 0000 Signed Impressions: Service Date/Time: Monday, May 15, 2017 10:23 - CONCLUSION: NG tube appears appropriate in position. Stable basilar airspace disease. Dorothy Zepeda MD Cholangiopancreatography MRI 05/14/17 0000 Signed Impressions: Service Date/Time: Sunday, May 14, 2017 09:13 - CONCLUSION: 1. There is definite evidence of pancreatitis with inflammatory changes and fluid in the upper abdomen. 2. There is a focal nonspecific low signal lesion in head of pancreas measuring 2.5 x 1.5 cm without abnormal enhancement. The distal common bile duct at this level is narrowed suggestive of a stricture. The common bile duct is dilated at 1.8 cm. A focal mass in the head of the pancreas would be a primary consideration. However, there is also diffuse inflammatory changes involving the pancreas as well as inflammatory changes in the upper abdomen indicating pancreatitis which I believe confuses the issue. When the inflammatory changes associated with pancreatitis have resolved, ERCP would be recommended for further evaluation of this area. Sandro London MD Abdomen/Pelvis CT 05/13/17 1317 Signed Impressions: Service Date/Time: Saturday, May 13, 2017 17:29 - CONCLUSION: 1. Cirrhosis. 2. Findings suggesting acute pancreatitis with large pseudocyst measuring 7.7 x 5.8 x 2.8 cm. 3. Low density mass involving the head of the pancreas. Measuring 2.1 x 1.8 x 1.7 cm. I'm concerned this relates to malignancy. There is clearly some mass effect on the pancreatic duct which is mildly dilated within the body and tail measuring 4 mm. Consider MRI to further evaluate. 4. Ileus type pattern. 5. A small focus of air and fluid directly adjacent to the sigmoid colon. I am unsure if this relates to a very large diverticulum or to a contained microperforation. 6. Right basilar atelectasis. Tang Garcia Jr., MD Objective Remarks General: No acute distress. NG tube in place. Heart: Regular rate and rhythm. No murmur. Lungs: Clear to auscultation bilaterally. No wheezes, rales, or rhonchi. Breathing is nonlabored. Abdomen: Moderately distended. Tender to palpation diffusely. Decreased bowel sounds. Extremities: No lower extremity edema. Psych: Alert and oriented. Procedures None Urinary Catheter: Yes Assessment to: Continue Franklin insert reason: Obstruction/Retention Vascular Central Line Catheter: No A/P Problem List: (1) Sepsis ICD Code: A41.9 - Sepsis, unspecified organism (2) Pancreatitis ICD Code: K85.90 - Acute pancreatitis without necrosis or infection, unspecified (3) Pancreatic mass ICD Code: K86.9 - Disease of pancreas, unspecified (4) S/P small bowel resection ICD Code: Z90.49 - Acquired absence of other specified parts of digestive tract (5) Hypokalemia ICD Code: E87.6 - Hypokalemia Status: Acute (6) Alcohol abuse ICD Code: F10.10 - Alcohol abuse Status: Chronic (7) Tobacco abuse ICD Code: Z72.0 - Tobacco use Assessment and Plan 1. Sepsis: Source likely abdominal. Blood cultures are negative so far. Continue IV antibiotics. WBCs improving. 2. Pancreatitis: Follow lipase. Keep NPO. CT shows acute pancreatitis with pseudocyst. Appreciate GI and general surgery recommendations. 3. Pancreatic mass: MRI report noted. Appreciate surgery, GI recommendations. 4. Abdominal pain, distention: Continue NG tube to low intermittent suction. 5. S/P small bowel resection: Patient had not followed up as outpatient post- op. Sudha removed in ER. Management per general surgery. 6. Hypokalemia: Supplement potassium. 7. Tobacco abuse: Counselled. 8. DVT prophylaxis: SKYLER Mcnulty. Avoid chemical prophylaxis secondary to coagulopathy, possible need for surgical intervention. 9. Hypomagnesemia: Supplement magnesium. Agustín Mora MD May 17, 2017 10:12
--- NOTE | 2017-05-17 10:37 | HHI.PR ---
Subjective Subjective Notes no acute issues, wbc trending down, pain significant but controlled Objective Vitals/I&O Vital Signs Date Time Temp Pulse Resp B/P (MAP) Pulse Ox O2 Delivery O2 Flow Rate FiO2 05/17/17 08:00 98.2 108 19 119/83 (95) 95 05/13/17 17:49 Room Air Labs Laboratory Tests Test 05/17/17 07:47 White Blood Count 16.8 Red Blood Count 2.44 Hemoglobin 7.7 Hematocrit 23.0 Mean Corpuscular Volume 94.1 Mean Corpuscular Hemoglobin 31.4 Mean Corpuscular Hemoglobin Concent 33.4 Red Cell Distribution Width 14.5 Platelet Count 227 Mean Platelet Volume 8.8 Neutrophils (%) (Auto) 80.7 Lymphocytes (%) (Auto) 8.7 Monocytes (%) (Auto) 8.7 Eosinophils (%) (Auto) 1.6 Basophils (%) (Auto) 0.3 Neutrophils # (Auto) 13.6 Lymphocytes # (Auto) 1.5 Monocytes # (Auto) 1.5 Eosinophils # (Auto) 0.3 Basophils # (Auto) 0.0 CBC Comment AUTO DIFF Prothrombin Time 15.1 Prothromb Time International Ratio 1.3 Blood Urea Nitrogen 8 Creatinine 0.31 Random Glucose 87 Calcium Level 7.6 Magnesium Level 1.4 Sodium Level 135 Potassium Level 3.4 Chloride Level 102 Carbon Dioxide Level 23.6 Anion Gap 9 Estimat Glomerular Filtration Rate 234 Lipase 600 Date/Time Source Procedure Growth Status 05/13/17 20:23 Blood Peripheral Aerobic Blood Culture - Preliminary NO GROWTH IN 3 DAYS Resulted 05/13/17 20:23 Blood Peripheral Anaerobic Blood Culture - Preliminary NO GROWTH IN 3 DAYS Resulted Cardiovascular: Regular Lungs: Clear Abdomen: Other (soft +distended, +ttp, no rebound, incision well healing) A/P Assessment and Plan hx sbr, now with pancreatitis, etoh abuse, pancreatic pseudocyst, mass PLAN Ng sxn observation trend lipase wbc trending down continue to monitor, may need reCT in a few days tpn planning will follow Jose Nichole MD May 17, 2017 10:37
[2017-05-17 10:38] LABS: BANDS 5 % (0-6); EOSINOPHILS 2 % (0-4); METAMYELOCYTES 2 % (0-1); MYELOCYTES 2 % (0-0); NEUTROPHIL # MANUAL DIFF 15.6 TH/MM3 (1.8-7.7); POLYS (SEG NEUTROPHILS) 83 % (16-70); PROMYELOCYTES 1 % (0-0); WBC DIFF SAMPLE 100
[2017-05-17 10:39] LABS: PLATELET ESTIMATE SMEAR NORMAL (NORMAL); PLATELET MORPHOLOGY NORMAL (NORMAL)
[2017-05-17 10:40] LABS: SCAN/DIFF FINAL DIFF MANUAL; TARGET CELLS 1+ (NORMAL)
[2017-05-17] MEDS: THIAMINE INJ 100 MG in SODIUM CHLORIDE 0.9% INJ 100 ML IV SCH (13:16)
[2017-05-17] MEDS ORDERED: LEVE500 PO (14:00)
[2017-05-17] MEDS ORDERED: FURO1TAB60 PO (14:00)
[2017-05-17] MEDS: MULTIVITAMIN INJ 10 ML, FOLIC ACID INJ 1 MG in SODIUM CHLORID 0.9% 500 ML INJ 500 ML IV SCH (14:35)
[2017-05-17] MEDS: NS + KCL 20 MEQ INJ 1,000 ML IV SCH ×2 (18:20→19:50)
[2017-05-18] VITALS (11 sets, daily range): BP systolic 123–135; BP diastolic 94–98; PULSE 106–118; RESP 16–20; TEMP 96.8–99.2; O2SAT 96
[2017-05-18] MEDS: SODIUM CHLORIDE 0.9% FLUSH 10 ML FLUSH IV FLUSH PRN ×2 (01:38→05:53)
[2017-05-18] MEDS: HYDROmorphone HCL PF 1 MG/ML VIAL IV PRN ×7 (01:38→21:29)
[2017-05-18] MEDS: metroNIDAZOLE 500 MG INJ 100 ML IV SCH ×3 (03:50→20:11)
[2017-05-18] MEDS: SODIUM CHLORIDE 0.9% FLUSH 10 ML FLUSH IV FLUSH SCH ×2 (08:04→20:11)
[2017-05-18] MEDS: PANTOPRAZOLE SODIUM 40 MG VIAL IV PUSH SCH ×2 (08:04→20:11)
[2017-05-18] MEDS: CIPROFLOXACIN 400 MG PREMIX 200 ML IV SCH ×2 (08:04→20:11)
[2017-05-18] MEDS: MULTIVITAMIN INJ 10 ML, FOLIC ACID INJ 1 MG in SODIUM CHLORID 0.9% 500 ML INJ 500 ML IV SCH (09:10)
--- NOTE | 2017-05-18 09:40 | HHI.PR ---
Subjective Subjective Notes small bms, +flatus, still with significant abdominal pain Objective Vitals/I&O Vital Signs Date Time Temp Pulse Resp B/P (MAP) Pulse Ox O2 Delivery O2 Flow Rate FiO2 05/18/17 04:19 114 05/18/17 04:06 97.5 18 129/95 (106) 96 Labs Date/Time Source Procedure Growth Status 05/13/17 20:23 Blood Peripheral Aerobic Blood Culture - Preliminary NO GROWTH IN 4 DAYS Resulted 05/13/17 20:23 Blood Peripheral Anaerobic Blood Culture - Preliminary NO GROWTH IN 4 DAYS Resulted 05/18/17 05:00 Stool Stool Stool Occult Blood (JAYESH) Pending Received Cardiovascular: Regular Lungs: Clear Abdomen: Other (+ttp mild distension) A/P Assessment and Plan hx sbr, now with pancreatitis, etoh abuse, pancreatic pseudocyst, mass PLAN Ng sxn axr possible ng clamp trial pending axr observation trend lipase tpn planning will follow Jose Nichole MD May 18, 2017 09:40
--- NOTE | 2017-05-18 09:40 | HHI.PR ---
Subjective Remarks Follow up abdominal pain. Patient reports that her abdomen is slightly less distended today. Still painful. No nausea/vomiting. Had BM x 3 overnight. Objective Vitals Vital Signs Date Time Temp Pulse Resp B/P (MAP) Pulse Ox O2 Delivery O2 Flow Rate FiO2 05/18/17 04:19 114 05/18/17 04:06 97.5 118 18 129/95 (106) 96 05/18/17 00:10 111 05/18/17 00:00 99.2 114 18 123/96 (105) 96 05/17/17 20:06 107 05/17/17 20:00 96.5 109 18 116/86 (96) 94 05/17/17 16:49 101 05/17/17 16:00 97.2 104 20 138/96 (110) 98 05/17/17 12:20 102 05/17/17 12:00 96.6 107 20 130/96 (107) 96 I/O 05/17/17 05/17/17 05/17/17 05/18/17 05/18/17 05/18/17 07:00 15:00 23:00 07:00 15:00 23:00 Intake Total 612 ml 1101 ml 201 ml Output Total 500 ml 600 ml 200 ml 500 ml Balance 112 ml 501 ml -200 ml -299 ml Intake Oral 0 ml IV Total 612 ml 1101 ml 201 ml Output Urine Total 500 ml 600 ml 200 ml 500 ml # Bowel Movements 0 2 Result Diagram: 05/17/17 0747 05/17/17 0747 Imaging Last Impressions Chest X-Ray 05/15/17 0000 Signed Impressions: Service Date/Time: Monday, May 15, 2017 10:23 - CONCLUSION: NG tube appears appropriate in position. Stable basilar airspace disease. Dorothy Zepeda MD Cholangiopancreatography MRI 05/14/17 0000 Signed Impressions: Service Date/Time: Sunday, May 14, 2017 09:13 - CONCLUSION: 1. There is definite evidence of pancreatitis with inflammatory changes and fluid in the upper abdomen. 2. There is a focal nonspecific low signal lesion in head of pancreas measuring 2.5 x 1.5 cm without abnormal enhancement. The distal common bile duct at this level is narrowed suggestive of a stricture. The common bile duct is dilated at 1.8 cm. A focal mass in the head of the pancreas would be a primary consideration. However, there is also diffuse inflammatory changes involving the pancreas as well as inflammatory changes in the upper abdomen indicating pancreatitis which I believe confuses the issue. When the inflammatory changes associated with pancreatitis have resolved, ERCP would be recommended for further evaluation of this area. Sandro London MD Abdomen/Pelvis CT 05/13/17 1317 Signed Impressions: Service Date/Time: Saturday, May 13, 2017 17:29 - CONCLUSION: 1. Cirrhosis. 2. Findings suggesting acute pancreatitis with large pseudocyst measuring 7.7 x 5.8 x 2.8 cm. 3. Low density mass involving the head of the pancreas. Measuring 2.1 x 1.8 x 1.7 cm. I'm concerned this relates to malignancy. There is clearly some mass effect on the pancreatic duct which is mildly dilated within the body and tail measuring 4 mm. Consider MRI to further evaluate. 4. Ileus type pattern. 5. A small focus of air and fluid directly adjacent to the sigmoid colon. I am unsure if this relates to a very large diverticulum or to a contained microperforation. 6. Right basilar atelectasis. Tang Garcia Jr., MD Objective Remarks General: No acute distress. NG tube in place. Heart: Regular rate and rhythm. No murmur. Lungs: Clear to auscultation bilaterally. No wheezes, rales, or rhonchi. Breathing is nonlabored. Abdomen: Moderately distended, slightly less today. Tender to palpation diffusely. Positive bowel sounds. Extremities: No lower extremity edema. Psych: Alert and oriented. Procedures None Urinary Catheter: Yes Assessment to: Remove Vascular Central Line Catheter: No A/P Problem List: (1) Sepsis ICD Code: A41.9 - Sepsis, unspecified organism (2) Pancreatitis ICD Code: K85.90 - Acute pancreatitis without necrosis or infection, unspecified (3) Pancreatic mass ICD Code: K86.9 - Disease of pancreas, unspecified (4) S/P small bowel resection ICD Code: Z90.49 - Acquired absence of other specified parts of digestive tract (5) Hypokalemia ICD Code: E87.6 - Hypokalemia Status: Acute (6) Alcohol abuse ICD Code: F10.10 - Alcohol abuse Status: Chronic (7) Tobacco abuse ICD Code: Z72.0 - Tobacco use Assessment and Plan 1. Sepsis: Source likely abdominal. Blood cultures are negative so far. Continue IV antibiotics. WBCs improving. 2. Pancreatitis: Follow lipase. Keep NPO. CT shows acute pancreatitis with pseudocyst. Appreciate GI and general surgery recommendations. Labs are pending. 3. Pancreatic mass: MRI report noted. Appreciate surgery, GI recommendations. 4. Abdominal pain, distention: Continue NG tube to low intermittent suction. 5. S/P small bowel resection: Patient had not followed up as outpatient post- op. Sudha removed in ER. Management per general surgery. 6. Hypokalemia: Supplement potassium. Labs are pending. 7. Tobacco abuse: Counselled. 8. DVT prophylaxis: SKYLER Mcnulty. Avoid chemical prophylaxis secondary to coagulopathy, possible need for surgical intervention. 9. Hypomagnesemia: Supplement magnesium. Labs are pending. Agustín Mora MD May 18, 2017 09:40
[2017-05-18 10:51] LABS: BASOPHIL # 0.1 TH/MM3 (0-0.2); BASOPHIL % 0.4 % (0.0-2.0); EOSINOPHIL # 0.2 TH/MM3 (0-0.4); EOSINOPHIL % 1.3 % (0.0-4.0); HEMATOCRIT 22.4 % (35.0-46.0); HEMO FLAGS DIFF FINAL; LYMPH % 10.6 % (9.0-44.0); LYMPHOCYTE # 1.4 TH/MM3 (1.0-4.8); MEAN CELL VOLUME 94.1 FL (80.0-100.0); MEAN CORPUSCULAR HEMOGLOBIN 31.1 PG (27.0-34.0); MONO % 7.4 % (0.0-8.0); NEUT % 80.3 % (16.0-70.0); PLATELET COUNT 261 TH/MM3 (150-450); RED BLOOD COUNT 2.38 MIL/MM3 (4.00-5.30); RED CELL DISTRIBUTION WIDTH 14.5 % (11.6-17.2); WHITE BLOOD COUNT 13.7 TH/MM3 (4.0-11.0)
[2017-05-18 11:05] LABS: BICARBONATE 23.5 MEQ/L (21.0-32.0); CALCIUM-PROTEIN CORRECTED 8.3 MG/DL (8.5-10.1); MAGNESIUM 1.2 MG/DL (1.5-2.5); TOTAL BILIRUBIN ADULT 0.8 MG/DL (0.2-1.0)
--- NOTE | 2017-05-18 11:43 | RADRPT ---
EXAM DATE/TIME: 05/18/2017 11:28 [facility] COMPARISON: CT ABDOMEN & PELVIS W CONTRAST, May 13, 2017, 17:29. ABDOMEN KUB ONLY, April 10, 2015, 17:28. INDICATIONS : Obstruction. Patient c/o abdomen pain, bloating, and diarrhea. MEDICAL HISTORY : Seizures. SURGICAL HISTORY : Appendectomy. abdominal surgery, perforated bowel ENCOUNTER: Subsequent ACUITY: 4 - 6 days PAIN SCORE: 8/10 LOCATION: Bilateral Abdomen. FINDINGS: A supine frontal view of the abdomen shows gas distended loops of large and small bowel. Gas is seen to the level of the rectal vault. Nasogastric tube is seen within a decompressed stomach. Hepatomegal y. Venous calcifications overlie the pelvis. Bony structures are unremarkable. CONCLUSION: Ileus type pattern. Hepatomegaly. Tang Garcia Jr., MD on May 18, 2017 at 11:40 Board Certified Radiologist. This report was verified electronically.
--- NOTE | 2017-05-18 12:50 | HHI.GIFU ---
Subjective Remarks Resting in bed. Feeling better today. Going down for xray. Afebrile. (Prachi Aldrich) Objective Vitals I&O Vital Signs Date Time Temp Pulse Resp B/P (MAP) Pulse Ox O2 Delivery O2 Flow Rate FiO2 05/18/17 12:32 115 05/18/17 08:00 96.8 117 16 128/96 (107) 96 05/18/17 08:00 113 05/18/17 04:19 114 05/18/17 04:06 97.5 118 18 129/95 (106) 96 05/18/17 00:10 111 05/18/17 00:00 99.2 114 18 123/96 (105) 96 05/17/17 20:06 107 05/17/17 20:00 96.5 109 18 116/86 (96) 94 05/17/17 16:49 101 05/17/17 16:00 97.2 104 20 138/96 (110) 98 I/O 05/17/17 05/17/17 05/17/17 05/18/17 05/18/17 05/18/17 07:00 15:00 23:00 07:00 15:00 23:00 Intake Total 612 ml 1101 ml 201 ml Output Total 500 ml 600 ml 200 ml 500 ml Balance 112 ml 501 ml -200 ml -299 ml Intake Oral 0 ml IV Total 612 ml 1101 ml 201 ml Output Urine Total 500 ml 600 ml 200 ml 500 ml # Bowel Movements 0 2 Laboratory Laboratory Tests Test 05/18/17 09:07 White Blood Count 13.7 Red Blood Count 2.38 Hemoglobin 7.4 Hematocrit 22.4 Mean Corpuscular Volume 94.1 Mean Corpuscular Hemoglobin 31.1 Mean Corpuscular Hemoglobin Concent 33.0 Red Cell Distribution Width 14.5 Platelet Count 261 Mean Platelet Volume 8.8 Neutrophils (%) (Auto) 80.3 Lymphocytes (%) (Auto) 10.6 Monocytes (%) (Auto) 7.4 Eosinophils (%) (Auto) 1.3 Basophils (%) (Auto) 0.4 Neutrophils # (Auto) 11.0 Lymphocytes # (Auto) 1.4 Monocytes # (Auto) 1.0 Eosinophils # (Auto) 0.2 Basophils # (Auto) 0.1 CBC Comment DIFF FINAL Differential Comment Blood Urea Nitrogen 5 Creatinine 0.28 Random Glucose 110 Total Protein 5.5 Albumin 1.5 Calcium Level 7.4 Phosphorus Level 2.8 Magnesium Level 1.2 Alkaline Phosphatase 465 Aspartate Amino Transf (AST/SGOT) 58 Alanine Aminotransferase (ALT/SGPT) 15 Total Bilirubin 0.8 Sodium Level 135 Potassium Level 3.0 Chloride Level 100 Carbon Dioxide Level 23.5 Anion Gap 12 Estimat Glomerular Filtration Rate 263 Protein Corrected Calcium 8.3 Lipase 820 Date/Time Source Procedure Growth Status 05/13/17 20:23 Blood Peripheral Aerobic Blood Culture - Final NO GROWTH IN 5 DAYS Complete 05/13/17 20:23 Blood Peripheral Anaerobic Blood Culture - Final NO GROWTH IN 5 DAYS Complete 05/18/17 05:00 Stool Stool Stool Occult Blood (JAYESH) - Final HEMOCCULT NEGATIVE Complete Imaging Last Impressions Abdomen X-Ray 05/18/17 0000 Signed Impressions: Service Date/Time: Thursday, May 18, 2017 11:28 - CONCLUSION: Ileus type pattern. Hepatomegaly. Tang Garcia Jr., MD Chest X-Ray 05/15/17 0000 Signed Impressions: Service Date/Time: Monday, May 15, 2017 10:23 - CONCLUSION: NG tube appears appropriate in position. Stable basilar airspace disease. Dorothy Zepeda MD Cholangiopancreatography MRI 05/14/17 0000 Signed Impressions: Service Date/Time: Sunday, May 14, 2017 09:13 - CONCLUSION: 1. There is definite evidence of pancreatitis with inflammatory changes and fluid in the upper abdomen. 2. There is a focal nonspecific low signal lesion in head of pancreas measuring 2.5 x 1.5 cm without abnormal enhancement. The distal common bile duct at this level is narrowed suggestive of a stricture. The common bile duct is dilated at 1.8 cm. A focal mass in the head of the pancreas would be a primary consideration. However, there is also diffuse inflammatory changes involving the pancreas as well as inflammatory changes in the upper abdomen indicating pancreatitis which I believe confuses the issue. When the inflammatory changes associated with pancreatitis have resolved, ERCP would be recommended for further evaluation of this area. Sandro London MD Abdomen/Pelvis CT 05/13/17 1317 Signed Impressions: Service Date/Time: Saturday, May 13, 2017 17:29 - CONCLUSION: 1. Cirrhosis. 2. Findings suggesting acute pancreatitis with large pseudocyst measuring 7.7 x 5.8 x 2.8 cm. 3. Low density mass involving the head of the pancreas. Measuring 2.1 x 1.8 x 1.7 cm. I'm concerned this relates to malignancy. There is clearly some mass effect on the pancreatic duct which is mildly dilated within the body and tail measuring 4 mm. Consider MRI to further evaluate. 4. Ileus type pattern. 5. A small focus of air and fluid directly adjacent to the sigmoid colon. I am unsure if this relates to a very large diverticulum or to a contained microperforation. 6. Right basilar atelectasis. Tang Garcia Jr., MD Physical Exam GEN: Ill/malnourished appearing HEENT: Normocephalic; atraumatic; no jaundice. CHEST: CTA, diminished CARDIAC: Regular, tachycardic ABDOMEN: Soft, distended, diffuse tenderness, (+) BS. NGT clamped EXTREMITIES: No clubbing, cyanosis, or edema. SKIN: Normal; no rash; no jaundice. CALL OR CONTACT CENTRE OPERATOR: No focal deficits; alert and oriented times three. (Prachi Aldrich [facility]) Assessment and Plan Plan ASSESSMENT: - Pancreatitis with large pseudocyst, pancreatic head mass. CT scan of the abdomen and pelvis with IV contrast (05/13/17) and this revealed cirrhosis, findings suggesting acute pancreatitis with large pseudocyst measuring 7.7 x 5.8 x 2.8 cm. Low density mass involving the head of the pancreas. Measuring 2.1 x 1.8 x 1.7 cm. I'm concerned this relates to malignancy. There is clearly some mass effect of the pancreatic duct which is mildly dilated within the body and spell measuring 4 mm. Consider MRI to further evaluate. Ileus type pattern. A small focus of air and fluid directly adjacent to the sigmoid colon. I am unsure if this relates to a very large I've reticulin or tic contained microperforation. Right basilar atelectasis. MRCP with and without contrast (05/14/17)----> there is definite evidence of pancreatitis with inflammatory changes and fluid in the upper abdomen. There is a focal nonspecific low signal lesion in the head of the pancreas measuring 2.5 x 1.5 cm without abnormal enhancement. The distal common bile duct at this level is narrowed suggestive of a stricture. The common bile duct is dilated at 1.8 cm. A focal mass in the head of the pancreas would be a primary consideration. However there is also diffuse inflammatory changes involving then pancreas as well as inflammatory changes in the abdomen indicating pancreatitis which I believe confuses the issue. When the inflammatory changes associated with pancreatitis have resolved, ERCP would be recommended for further evaluation of this area. CEA, Ca19-9 26.7. NPO. NGT clamped. GS following. She has a large pseudocyst and pancreatic head mass, although it is unclear if this an inflammatory mass r/t pancreatitis vs. malignant mass at this time. D/W Dr. Child---> high risk for procedure, as her INR is high. Will plan for EUS once the fluid in abdomen has matured and coagulopathy improved. Possible ERCP pending EUS results. Will need repeat imaging. D/W Dr. Busch TPN vs. post pyloric feedings, recommend trial of clears if able. Cipro/Flagyl, IVF, PPI - Abdominal distention, n/v. Likely related to above. NGT clamped. KUB ()---> ileus type pattern. Hepatomegaly. - Leukocytosis. WBC 13.7, improved. Bcx no growth 5 day. Cipro/flagyl - Electrolyte abnormalities. Replacement per attending. - Anemia, no acute blood loss. HH trending down. 7.4/22.4. Hemoccult negative. - ETOH abuse. DT precautions per attending. - S/P recent hospitalization at [facility] for large complex pelvic abscess with concern for possible perforated Meckel's diverticulum. S/P exploration with washout and drainage of abscess with drain placement on (04/17/17) with Dr. Nichole. PLAN: - Trial of clears if okay with GS - If unable to tolerate PPN vs. TPN vs. Post pyloric feedings - NGT clamped - Cont. Protonix - Cont. Cipro/Flagyl - Monitor HH - Transfuse as necessary - Monitor labs - Supportive care - Further recommendations to follow based on results of above - Will need repeat imaging of pseudocyst/pancreatitis - Possible EUS once fluid matures, possible ERCP pending EUS results - Pt seen and examined by Dr. Busch and myself and this note is written on his behalf (Prachi Aldrich) Physician Comments Seen and examined with Prachi plan as above. Will check if diet tolerated orally, will follow up with you. (Marcelo Busch MD) Prachi Aldrich May 18, 2017 12:50 Marcelo Busch MD May 18, 2017 13:03
[2017-05-18] MEDS ORDERED: POTASSIUM CHLOR 20 MEQ PREMIX 100 ML IV SCH (16:00)
[2017-05-18] MEDS: MAGNESIUM SULFATE 1 GM PREMIX 100 ML IV SCH ×2 (17:55→20:13)
[2017-05-18] MEDS: NS + KCL 20 MEQ INJ 1,000 ML IV SCH ×2 (19:40→20:10)
[2017-05-19] VITALS (10 sets, daily range): BP systolic 114–135; BP diastolic 85–96; PULSE 102–120; RESP 16–20; TEMP 98.6–100.4; O2SAT 95–97
[2017-05-19] MEDS: HYDROmorphone HCL PF 1 MG/ML VIAL IV PRN ×7 (00:33→23:07)
[2017-05-19] MEDS: metroNIDAZOLE 500 MG INJ 100 ML IV SCH ×3 (04:15→20:07)
[2017-05-19 07:41] LABS: AUTOMATED NEUTROPHIL # 10.1 TH/MM3 (1.8-7.7); BASOPHIL # 0.1 TH/MM3 (0-0.2); BASOPHIL % 0.6 % (0.0-2.0); EOSINOPHIL # 0.2 TH/MM3 (0-0.4); EOSINOPHIL % 1.4 % (0.0-4.0); HEMATOCRIT 22.5 % (35.0-46.0); HEMO FLAGS DIFF FINAL; LYMPH % 10.5 % (9.0-44.0); LYMPHOCYTE # 1.4 TH/MM3 (1.0-4.8); MEAN CELL VOLUME 93.6 FL (80.0-100.0); MEAN CORPUSCULAR HEMOGLOBIN 31.1 PG (27.0-34.0); MEAN CORPUSCULAR HGB CONC 33.2 % (32.0-36.0); MONO % 10.2 % (0.0-8.0); NEUT % 77.3 % (16.0-70.0); PLATELET COUNT 299 TH/MM3 (150-450); RED BLOOD COUNT 2.41 MIL/MM3 (4.00-5.30)
[2017-05-19 07:53] LABS: INTERNATIONAL NORMALIZED RATIO 1.3 RATIO; PROTHROMBIN TIME - PATIENT 14.4 SEC (9.8-11.6)
[2017-05-19 08:04] LABS: ANION GAP 12 MEQ/L (5-15); AST (GOT) 54 U/L (15-37); BLOOD UREA NITROGEN 3 MG/DL (7-18); CHLORIDE 99 MEQ/L (98-107); GLOMERULAR FILTRATION RATE 502 ML/MIN (>89); MAGNESIUM 1.6 MG/DL (1.5-2.5); SODIUM (NA) 135 MEQ/L (136-145)
[2017-05-19 08:07] LABS: ALKALINE PHOSPHATASE 417 U/L (45-117); ALT (GPT) 18 U/L (10-53); TOTAL BILIRUBIN ADULT 0.7 MG/DL (0.2-1.0)
[2017-05-19] MEDS: CIPROFLOXACIN 400 MG PREMIX 200 ML IV SCH ×2 (08:08→20:07)
[2017-05-19] MEDS: PANTOPRAZOLE SODIUM 40 MG VIAL IV PUSH SCH ×2 (08:09→20:08)
[2017-05-19] MEDS: THIAMINE HCL 100 MG TAB PO SCH (08:09)
--- NOTE | 2017-05-19 08:51 | HHI.PR ---
Subjective Remarks Follow up abdominal pain. Patient denies nausea/vomiting. Abdomen slightly less distended, but still painful. Tolerating ice chips. Objective Vitals Vital Signs Date Time Temp Pulse Resp B/P (MAP) Pulse Ox O2 Delivery O2 Flow Rate FiO2 05/19/17 04:00 100.4 119 18 124/90 (101) 96 05/19/17 01:03 16 05/19/17 00:00 99.2 118 20 129/95 (106) 97 05/18/17 20:24 106 05/18/17 20:00 96.9 114 20 129/98 (108) 96 05/18/17 18:05 113 05/18/17 16:00 97.7 117 18 132/98 (109) 96 05/18/17 12:32 115 05/18/17 12:00 98.8 113 18 135/94 (108) 96 I/O 05/18/17 05/18/17 05/18/17 05/19/17 05/19/17 05/19/17 06:59 14:59 22:59 06:59 14:59 22:59 Intake Total 202 ml 1611.2 ml 1200 ml 2900 ml Output Total 200 ml 500 ml 900 ml 300 ml Balance -200 ml -298 ml 711.2 ml 1200 ml 2600 ml Intake Oral 0 ml IV Total 202 ml 1611.2 ml 1200 ml 2900 ml Output Urine Total 200 ml 500 ml 900 ml Gastric Drainage Total 300 ml # Bowel Movements 2 1 5 Result Diagram: 05/19/17 0637 05/19/17 0637 Imaging Last Impressions Abdomen X-Ray 05/18/17 0000 Signed Impressions: Service Date/Time: Thursday, May 18, 2017 11:28 - CONCLUSION: Ileus type pattern. Hepatomegaly. Tang Garcia Jr., MD Chest X-Ray 05/15/17 0000 Signed Impressions: Service Date/Time: Monday, May 15, 2017 10:23 - CONCLUSION: NG tube appears appropriate in position. Stable basilar airspace disease. Dorothy Zepeda MD Cholangiopancreatography MRI 05/14/17 0000 Signed Impressions: Service Date/Time: Sunday, May 14, 2017 09:13 - CONCLUSION: 1. There is definite evidence of pancreatitis with inflammatory changes and fluid in the upper abdomen. 2. There is a focal nonspecific low signal lesion in head of pancreas measuring 2.5 x 1.5 cm without abnormal enhancement. The distal common bile duct at this level is narrowed suggestive of a stricture. The common bile duct is dilated at 1.8 cm. A focal mass in the head of the pancreas would be a primary consideration. However, there is also diffuse inflammatory changes involving the pancreas as well as inflammatory changes in the upper abdomen indicating pancreatitis which I believe confuses the issue. When the inflammatory changes associated with pancreatitis have resolved, ERCP would be recommended for further evaluation of this area. Sandro London MD Abdomen/Pelvis CT 05/13/17 1317 Signed Impressions: Service Date/Time: Saturday, May 13, 2017 17:29 - CONCLUSION: 1. Cirrhosis. 2. Findings suggesting acute pancreatitis with large pseudocyst measuring 7.7 x 5.8 x 2.8 cm. 3. Low density mass involving the head of the pancreas. Measuring 2.1 x 1.8 x 1.7 cm. I'm concerned this relates to malignancy. There is clearly some mass effect on the pancreatic duct which is mildly dilated within the body and tail measuring 4 mm. Consider MRI to further evaluate. 4. Ileus type pattern. 5. A small focus of air and fluid directly adjacent to the sigmoid colon. I am unsure if this relates to a very large diverticulum or to a contained microperforation. 6. Right basilar atelectasis. Tang Garcia Jr., MD Objective Remarks General: No acute distress. NG tube in place. Heart: Regular rate and rhythm. No murmur. Lungs: Clear to auscultation bilaterally. No wheezes, rales, or rhonchi. Breathing is nonlabored. Abdomen: Moderately distended. Tender to palpation diffusely. Positive bowel sounds. Extremities: No lower extremity edema. Psych: Alert and oriented. Procedures None Vascular Central Line Catheter: No A/P Problem List: (1) Sepsis ICD Code: A41.9 - Sepsis, unspecified organism (2) Pancreatitis ICD Code: K85.90 - Acute pancreatitis without necrosis or infection, unspecified (3) Pancreatic mass ICD Code: K86.9 - Disease of pancreas, unspecified (4) S/P small bowel resection ICD Code: Z90.49 - Acquired absence of other specified parts of digestive tract (5) Hypokalemia ICD Code: E87.6 - Hypokalemia Status: Acute (6) Alcohol abuse ICD Code: F10.10 - Alcohol abuse Status: Chronic (7) Tobacco abuse ICD Code: Z72.0 - Tobacco use Assessment and Plan 1. Sepsis: Source likely abdominal. Blood cultures are negative so far. Continue IV antibiotics. WBCs improving. 2. Pancreatitis: Follow lipase. Clear liquid diet. CT shows acute pancreatitis with pseudocyst. Appreciate GI and general surgery recommendations. 3. Pancreatic mass: MRI report noted. Appreciate surgery, GI recommendations. 4. Abdominal pain, distention: NG tube in place, suction turned off this morning. Advanced to clear liquid diet by GI. 5. S/P small bowel resection: Patient had not followed up as outpatient post- op. Sudha removed in ER. Management per general surgery. 6. Hypokalemia: Supplement potassium. 7. Tobacco abuse: Counselled. 8. DVT prophylaxis: SKYLER Mcnulty. Avoid chemical prophylaxis secondary to coagulopathy, possible need for surgical intervention. 9. Hypomagnesemia: Improved. Agustín Mora MD May 19, 2017 08:51
[2017-05-19] MEDS: SODIUM CHLORIDE 0.9% FLUSH 10 ML FLUSH IV FLUSH SCH ×2 (10:09→20:07)
[2017-05-19] MEDS: POTASSIUM CHLOR 20 MEQ PREMIX 100 ML IV SCH ×2 (10:15→15:00)
[2017-05-19] MEDS: MULTIVITAMIN INJ 10 ML, FOLIC ACID INJ 1 MG in SODIUM CHLORID 0.9% 500 ML INJ 500 ML IV SCH (10:15)
--- NOTE | 2017-05-19 10:34 | HHI.GIFU ---
Subjective Remarks Feeling better and tolerating ice and sips of water, less abdominal pain today. Objective Vitals I&O Vital Signs Date Time Temp Pulse Resp B/P (MAP) Pulse Ox O2 Delivery O2 Flow Rate FiO2 05/19/17 10:08 112 16 130/91 (104) 05/19/17 08:00 98.7 111 18 135/89 (104) 95 05/19/17 04:00 100.4 119 18 124/90 (101) 96 05/19/17 01:03 16 05/19/17 00:00 99.2 118 20 129/95 (106) 97 05/18/17 20:24 106 05/18/17 20:00 96.9 114 20 129/98 (108) 96 05/18/17 18:05 113 05/18/17 16:00 97.7 117 18 132/98 (109) 96 05/18/17 12:32 115 05/18/17 12:00 98.8 113 18 135/94 (108) 96 I/O 05/18/17 05/18/17 05/18/17 05/19/17 05/19/17 05/19/17 06:59 14:59 22:59 06:59 14:59 22:59 Intake Total 202 ml 1611.2 ml 1200 ml 2900 ml Output Total 200 ml 500 ml 900 ml 300 ml Balance -200 ml -298 ml 711.2 ml 1200 ml 2600 ml Intake Oral 0 ml IV Total 202 ml 1611.2 ml 1200 ml 2900 ml Output Urine Total 200 ml 500 ml 900 ml Gastric Drainage Total 300 ml # Bowel Movements 2 1 5 Laboratory Laboratory Tests Test 05/19/17 06:37 White Blood Count 13.0 Red Blood Count 2.41 Hemoglobin 7.5 Hematocrit 22.5 Mean Corpuscular Volume 93.6 Mean Corpuscular Hemoglobin 31.1 Mean Corpuscular Hemoglobin Concent 33.2 Red Cell Distribution Width 15.0 Platelet Count 299 Mean Platelet Volume 8.7 Neutrophils (%) (Auto) 77.3 Lymphocytes (%) (Auto) 10.5 Monocytes (%) (Auto) 10.2 Eosinophils (%) (Auto) 1.4 Basophils (%) (Auto) 0.6 Neutrophils # (Auto) 10.1 Lymphocytes # (Auto) 1.4 Monocytes # (Auto) 1.3 Eosinophils # (Auto) 0.2 Basophils # (Auto) 0.1 CBC Comment DIFF FINAL Differential Comment Prothrombin Time 14.4 Prothromb Time International Ratio 1.3 Blood Urea Nitrogen 3 Creatinine 0.16 Random Glucose 92 Total Protein 5.6 Albumin 1.5 Calcium Level 7.6 Phosphorus Level 3.0 Magnesium Level 1.6 Alkaline Phosphatase 417 Aspartate Amino Transf (AST/SGOT) 54 Alanine Aminotransferase (ALT/SGPT) 18 Total Bilirubin 0.7 Sodium Level 135 Potassium Level 3.0 Chloride Level 99 Carbon Dioxide Level 24.0 Anion Gap 12 Estimat Glomerular Filtration Rate 502 Lipase 775 Date/Time Source Procedure Growth Status 05/13/17 20:23 Blood Peripheral Aerobic Blood Culture - Final NO GROWTH IN 5 DAYS Complete 05/13/17 20:23 Blood Peripheral Anaerobic Blood Culture - Final NO GROWTH IN 5 DAYS Complete 05/18/17 05:00 Stool Stool Stool Occult Blood (JAYESH) - Final HEMOCCULT NEGATIVE Complete Physical Exam GEN: Ill/malnourished appearing HEENT: Normocephalic; atraumatic; no jaundice. CHEST: CTA, diminished CARDIAC: Regular, tachycardic ABDOMEN: Soft, distended, diffuse tenderness, (+) BS. NGT clamped EXTREMITIES: No clubbing, cyanosis, or edema. SKIN: Normal; no rash; no jaundice. 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 Assessment and Plan Plan ASSESSMENT: - Pancreatitis with large pseudocyst, pancreatic head mass. CT scan of the abdomen and pelvis with IV contrast (05/13/17) and this revealed cirrhosis, findings suggesting acute pancreatitis with large pseudocyst measuring 7.7 x 5.8 x 2.8 cm. Low density mass involving the head of the pancreas. Measuring 2.1 x 1.8 x 1.7 cm. I'm concerned this relates to malignancy. There is clearly some mass effect of the pancreatic duct which is mildly dilated within the body and spell measuring 4 mm. Consider MRI to further evaluate. Ileus type pattern. A small focus of air and fluid directly adjacent to the sigmoid colon. I am unsure if this relates to a very large I've reticulin or tic contained microperforation. Right basilar atelectasis. MRCP with and without contrast (05/14/17)----> there is definite evidence of pancreatitis with inflammatory changes and fluid in the upper abdomen. There is a focal nonspecific low signal lesion in the head of the pancreas measuring 2.5 x 1.5 cm without abnormal enhancement. The distal common bile duct at this level is narrowed suggestive of a stricture. The common bile duct is dilated at 1.8 cm. A focal mass in the head of the pancreas would be a primary consideration. However there is also diffuse inflammatory changes involving then pancreas as well as inflammatory changes in the abdomen indicating pancreatitis which I believe confuses the issue. When the inflammatory changes associated with pancreatitis have resolved, ERCP would be recommended for further evaluation of this area. CEA, Ca19-9 26.7. NPO. NGT clamped. GS following. She has a large pseudocyst and pancreatic head mass, although it is unclear if this an inflammatory mass r/t pancreatitis vs. malignant mass at this time. D/W Dr. Child---> high risk for procedure, as her INR is high. Will plan for EUS once the fluid in abdomen has matured and coagulopathy improved. Possible ERCP pending EUS results. Will need repeat imaging. D/W Dr. Busch TPN vs. post pyloric feedings, recommend trial of clears if able. Cipro/Flagyl, IVF, PPI - Abdominal distention, n/v. Likely related to above. NGT clamped. KUB ()---> ileus type pattern. Hepatomegaly. - Leukocytosis. WBC 13.7, improved. Bcx no growth 5 day. Cipro/flagyl - Electrolyte abnormalities. Replacement per attending. - Anemia, no acute blood loss. HH trending down. 7.4/22.4. Hemoccult negative. - ETOH abuse. DT precautions per attending. - S/P recent hospitalization at [facility] for large complex pelvic abscess with concern for possible perforated Meckel's diverticulum. S/P exploration with washout and drainage of abscess with drain placement on (04/17/17) with Dr. Nichole. PLAN: - Clears today and if tolerated to DC NGT - NGT clamped for now - Cont. Protonix - Cont. Cipro/Flagyl - Monitor HH - Transfuse as necessary - Monitor labs - Supportive care - Further recommendations to follow based on results of above - Possible EUS once fluid matures, possible ERCP pending EUS results Marcelo Busch MD May 19, 2017 10:34
--- NOTE | 2017-05-19 14:54 | HHI.PR ---
Subjective Subjective Notes Up to chair Reports distention is less today than yesterday Tolerating ice chips; wants more to drink Objective Vitals/I&O Vital Signs Date Time Temp Pulse Resp B/P (MAP) Pulse Ox O2 Delivery O2 Flow Rate FiO2 05/19/17 12:30 98.6 117 18 114/91 (99) 96 Labs Laboratory Tests Test 05/19/17 06:37 White Blood Count 13.0 Red Blood Count 2.41 Hemoglobin 7.5 Hematocrit 22.5 Mean Corpuscular Volume 93.6 Mean Corpuscular Hemoglobin 31.1 Mean Corpuscular Hemoglobin Concent 33.2 Red Cell Distribution Width 15.0 Platelet Count 299 Mean Platelet Volume 8.7 Neutrophils (%) (Auto) 77.3 Lymphocytes (%) (Auto) 10.5 Monocytes (%) (Auto) 10.2 Eosinophils (%) (Auto) 1.4 Basophils (%) (Auto) 0.6 Neutrophils # (Auto) 10.1 Lymphocytes # (Auto) 1.4 Monocytes # (Auto) 1.3 Eosinophils # (Auto) 0.2 Basophils # (Auto) 0.1 CBC Comment DIFF FINAL Differential Comment Prothrombin Time 14.4 Prothromb Time International Ratio 1.3 Blood Urea Nitrogen 3 Creatinine 0.16 Random Glucose 92 Total Protein 5.6 Albumin 1.5 Calcium Level 7.6 Phosphorus Level 3.0 Magnesium Level 1.6 Alkaline Phosphatase 417 Aspartate Amino Transf (AST/SGOT) 54 Alanine Aminotransferase (ALT/SGPT) 18 Total Bilirubin 0.7 Sodium Level 135 Potassium Level 3.0 Chloride Level 99 Carbon Dioxide Level 24.0 Anion Gap 12 Estimat Glomerular Filtration Rate 502 Lipase 775 Date/Time Source Procedure Growth Status 05/13/17 20:23 Blood Peripheral Aerobic Blood Culture - Final NO GROWTH IN 5 DAYS Complete 05/13/17 20:23 Blood Peripheral Anaerobic Blood Culture - Final NO GROWTH IN 5 DAYS Complete 05/18/17 05:00 Stool Stool Stool Occult Blood (JAYESH) - Final HEMOCCULT NEGATIVE Complete Cardiovascular: Regular Lungs: Clear Abdomen: Other (distended; incision healed; RLQ tenderness with palpation ) Extremities: No edema A/P Assessment and Plan 42 year old female s/p ex lap at OSH; now with pancreatitis; ETOH abuse; pancreatic pseudocyst -Clamp NGT -Sips of clear liquids -Continue to trend lipase -OOB and mobilize -IVF -No operative plans at this time Attending Statement patient seen and examined as above ng clamped tolerating liquids will remove ng today or tomorrow continue to trend lipase Attestation The exam, history, and the medical decision-making described in the above note were completed with the assistance of the mid-level provider. I reviewed and agree with the findings presented. I attest that I had a [id number] encounter with the patient on the same day, and personally performed and documented my assessment and findings in the medical record. Cady Ron May 19, 2017 14:54 Jose Nichole MD May 24, 2017 10:52
[2017-05-19] MEDS: NS + KCL 20 MEQ INJ 1,000 ML IV SCH (20:07)
[2017-05-20] VITALS (8 sets, daily range): BP systolic 105–126; BP diastolic 76–96; PULSE 103–121; RESP 18–20; TEMP 96.2–99.3; O2SAT 94–98
[2017-05-20] MEDS: NS + KCL 20 MEQ INJ 1,000 ML IV SCH ×3 (00:51→19:56)
[2017-05-20] MEDS: metroNIDAZOLE 500 MG INJ 100 ML IV SCH ×3 (04:00→19:56)
[2017-05-20] MEDS: HYDROmorphone HCL PF 1 MG/ML VIAL IV PRN ×4 (04:04→20:02)
[2017-05-20] MEDS: THIAMINE HCL 100 MG TAB PO SCH (07:59)
[2017-05-20] MEDS: PANTOPRAZOLE SODIUM 40 MG VIAL IV PUSH SCH ×2 (08:00→20:00)
[2017-05-20] MEDS: CIPROFLOXACIN 400 MG PREMIX 200 ML IV SCH ×2 (08:00→22:48)
[2017-05-20] MEDS: SODIUM CHLORIDE 0.9% FLUSH 10 ML FLUSH IV FLUSH SCH ×2 (08:00→19:59)
[2017-05-20] MEDS: ACETAMINOPHEN 325 MG TAB PO PRN (08:34)
--- NOTE | 2017-05-20 11:31 | HHI.PR ---
Subjective Remarks Follow up pancreatitis, abdominal pain. Patient tolerating small amounts of clear liquids. She feels very anxious. Tearful at times. Still with abdominal pain. Objective Vitals Vital Signs Date Time Temp Pulse Resp B/P (MAP) Pulse Ox O2 Delivery O2 Flow Rate FiO2 05/20/17 09:34 16 05/20/17 08:00 98.7 111 18 126/96 (106) 94 05/20/17 04:34 16 05/20/17 04:05 108 05/20/17 04:00 98.2 121 20 113/84 (94) 95 05/20/17 02:16 16 05/20/17 00:00 99.3 116 20 121/89 (100) 96 05/19/17 20:27 102 05/19/17 20:00 99.6 120 18 120/96 (104) 95 05/19/17 16:00 99.1 110 18 122/85 (97) 97 05/19/17 12:30 98.6 117 18 114/91 (99) 96 05/19/17 12:22 117 I/O 05/19/17 05/19/17 05/19/17 05/20/17 05/20/17 05/20/17 07:00 15:00 23:00 07:00 15:00 23:00 Intake Total 1200 ml 5240 ml 620 ml 1200 ml Output Total 1000 ml Balance 1200 ml 4240 ml 620 ml 1200 ml Intake Oral 1240 ml 120 ml IV Total 1200 ml 4000 ml 500 ml 1200 ml Output Urine Total 700 ml Gastric Drainage Total 300 ml # Bowel Movements 5 3 1 Result Diagram: 05/19/17 0637 05/19/17 0637 Imaging Last Impressions Abdomen X-Ray 05/18/17 0000 Signed Impressions: Service Date/Time: Thursday, May 18, 2017 11:28 - CONCLUSION: Ileus type pattern. Hepatomegaly. Tang Garcia Jr., MD Chest X-Ray 05/15/17 0000 Signed Impressions: Service Date/Time: Monday, May 15, 2017 10:23 - CONCLUSION: NG tube appears appropriate in position. Stable basilar airspace disease. Dorothy Zepeda MD Cholangiopancreatography MRI 05/14/17 0000 Signed Impressions: Service Date/Time: Sunday, May 14, 2017 09:13 - CONCLUSION: 1. There is definite evidence of pancreatitis with inflammatory changes and fluid in the upper abdomen. 2. There is a focal nonspecific low signal lesion in head of pancreas measuring 2.5 x 1.5 cm without abnormal enhancement. The distal common bile duct at this level is narrowed suggestive of a stricture. The common bile duct is dilated at 1.8 cm. A focal mass in the head of the pancreas would be a primary consideration. However, there is also diffuse inflammatory changes involving the pancreas as well as inflammatory changes in the upper abdomen indicating pancreatitis which I believe confuses the issue. When the inflammatory changes associated with pancreatitis have resolved, ERCP would be recommended for further evaluation of this area. Sandro London MD Abdomen/Pelvis CT 05/13/17 1314 Signed Impressions: Service Date/Time: Saturday, May 13, 2017 17:29 - CONCLUSION: 1. Cirrhosis. 2. Findings suggesting acute pancreatitis with large pseudocyst measuring 7.7 x 5.8 x 2.8 cm. 3. Low density mass involving the head of the pancreas. Measuring 2.1 x 1.8 x 1.7 cm. I'm concerned this relates to malignancy. There is clearly some mass effect on the pancreatic duct which is mildly dilated within the body and tail measuring 4 mm. Consider MRI to further evaluate. 4. Ileus type pattern. 5. A small focus of air and fluid directly adjacent to the sigmoid colon. I am unsure if this relates to a very large diverticulum or to a contained microperforation. 6. Right basilar atelectasis. Tang Garcia Jr., MD Objective Remarks General: No acute distress. NG tube in place, clamped. Heart: Regular rate and rhythm. No murmur. Lungs: Clear to auscultation bilaterally. No wheezes, rales, or rhonchi. Breathing is nonlabored. Abdomen: Moderately distended. Tender to palpation diffusely. Positive bowel sounds. Extremities: No lower extremity edema. Psych: Alert and oriented. Procedures None Urinary Catheter: Yes Assessment to: Remove Vascular Central Line Catheter: No A/P Problem List: (1) Sepsis ICD Code: A41.9 - Sepsis, unspecified organism (2) Pancreatitis ICD Code: K85.90 - Acute pancreatitis without necrosis or infection, unspecified (3) Pancreatic mass ICD Code: K86.9 - Disease of pancreas, unspecified (4) S/P small bowel resection ICD Code: Z90.49 - Acquired absence of other specified parts of digestive tract (5) Hypokalemia ICD Code: E87.6 - Hypokalemia Status: Acute (6) Alcohol abuse ICD Code: F10.10 - Alcohol abuse Status: Chronic (7) Tobacco abuse ICD Code: Z72.0 - Tobacco use Assessment and Plan 1. Sepsis: Source likely abdominal. Blood cultures are negative so far. Continue IV antibiotics. WBCs improving. Labs are pending today. 2. Pancreatitis: Follow lipase. Clear liquid diet. CT shows acute pancreatitis with pseudocyst. Appreciate GI and general surgery recommendations. 3. Pancreatic mass: MRI report noted. Appreciate surgery, GI recommendations. 4. Abdominal pain, distention: NG tube in place, clamped. Continue clear liquid diet as tolerated. 5. S/P small bowel resection: Patient had not followed up as outpatient post- op. Rogers removed in ER. Management per general surgery. 6. Hypokalemia: Supplement potassium. Labs are pending today. 7. Tobacco abuse: Counselled. 8. DVT prophylaxis: SKYLER Mcnulty. Avoid chemical prophylaxis secondary to coagulopathy, possible need for surgical intervention. 9. Hypomagnesemia: Improved. 10. Anxiety: Add lorazepam as needed. Agustín Mora MD May 20, 2017 11:31
[2017-05-20 15:03] LABS: AUTOMATED NEUTROPHIL # 9.1 TH/MM3 (1.8-7.7); BASOPHIL # 0.1 TH/MM3 (0-0.2); BASOPHIL % 0.4 % (0.0-2.0); EOSINOPHIL # 0.1 TH/MM3 (0-0.4); EOSINOPHIL % 0.9 % (0.0-4.0); HEMATOCRIT 24.2 % (35.0-46.0); HEMO FLAGS DIFF FINAL; LYMPHOCYTE # 1.7 TH/MM3 (1.0-4.8); MEAN CELL VOLUME 93.8 FL (80.0-100.0); MEAN CORPUSCULAR HEMOGLOBIN 30.2 PG (27.0-34.0); MEAN CORPUSCULAR HGB CONC 32.2 % (32.0-36.0); MONO % 8.9 % (0.0-8.0); NEUT % 75.8 % (16.0-70.0); PLATELET COUNT 413 TH/MM3 (150-450); RED BLOOD COUNT 2.59 MIL/MM3 (4.00-5.30)
--- NOTE | 2017-05-20 15:13 | HHI.PR ---
Subjective Subjective Notes Resting in bed No issues except hot overnight Tolerating clears Objective Vitals/I&O Vital Signs Date Time Temp Pulse Resp B/P (MAP) Pulse Ox O2 Delivery O2 Flow Rate FiO2 05/20/17 12:52 96.2 113 18 121/88 (99) 96 Labs Laboratory Tests Test 05/20/17 14:09 White Blood Count 12.0 Red Blood Count 2.59 Hemoglobin 7.8 Hematocrit 24.2 Mean Corpuscular Volume 93.8 Mean Corpuscular Hemoglobin 30.2 Mean Corpuscular Hemoglobin Concent 32.2 Red Cell Distribution Width 15.0 Platelet Count 413 Mean Platelet Volume 8.3 Neutrophils (%) (Auto) 75.8 Lymphocytes (%) (Auto) 14.0 Monocytes (%) (Auto) 8.9 Eosinophils (%) (Auto) 0.9 Basophils (%) (Auto) 0.4 Neutrophils # (Auto) 9.1 Lymphocytes # (Auto) 1.7 Monocytes # (Auto) 1.1 Eosinophils # (Auto) 0.1 Basophils # (Auto) 0.1 CBC Comment DIFF FINAL Differential Comment Date/Time Source Procedure Growth Status 05/13/17 20:23 Blood Peripheral Aerobic Blood Culture - Final NO GROWTH IN 5 DAYS Complete 05/13/17 20:23 Blood Peripheral Anaerobic Blood Culture - Final NO GROWTH IN 5 DAYS Complete 05/18/17 05:00 Stool Stool Stool Occult Blood (JAYESH) - Final HEMOCCULT NEGATIVE Complete Cardiovascular: Regular Lungs: Clear Abdomen: Other (well healed midline incision; distedned; minmal LLQ tenderness ) Extremities: No edema A/P Assessment and Plan 42 year old female s/p ex lap at OSH; now with pancreatitis; ETOH abuse; pancreatic pseudocyst -Continue NGT clamped -Clears -Continue to trend lipase ---still awaiting today's labs -OOB and mobilize -IVF -No operative plans at this time Attending Statement patient seen at bedside examined as above pancreatitis ng sxn abdominal exams Attestation The exam, history, and the medical decision-making described in the above note were completed with the assistance of the mid-level provider. I reviewed and agree with the findings presented. I attest that I had a [id number] encounter with the patient on the same day, and personally performed and documented my assessment and findings in the medical record. Cady Ron May 20, 2017 15:13 Jose Nichole MD May 28, 2017 14:17
[2017-05-20 15:14] LABS: BICARBONATE 23.8 MEQ/L (21.0-32.0); POTASSIUM 3.3 MEQ/L (3.5-5.1)
[2017-05-20] MEDS ORDERED: POTASSIUM CHLOR 20 MEQ PREMIX 100 ML IV ONE (16:15)
--- NOTE | 2017-05-20 17:42 | HHI.GIFU ---
Subjective Remarks Pt OOB to chair, tolerating clears. Says her pain is better than it was. No n/ v. c/o anxiety. Objective Vitals I&O Vital Signs Date Time Temp Pulse Resp B/P (MAP) Pulse Ox O2 Delivery O2 Flow Rate FiO2 05/20/17 16:31 97.9 103 18 105/76 (86) 97 05/20/17 12:52 96.2 113 18 121/88 (99) 96 05/20/17 12:00 110 05/20/17 11:23 16 05/20/17 09:34 16 05/20/17 08:00 113 05/20/17 08:00 98.7 111 18 126/96 (106) 94 05/20/17 04:05 108 05/20/17 04:00 98.2 121 20 113/84 (94) 95 05/20/17 02:16 16 05/20/17 00:00 99.3 116 20 121/89 (100) 96 05/19/17 20:27 102 05/19/17 20:00 99.6 120 18 120/96 (104) 95 I/O 05/19/17 05/19/17 05/19/17 05/20/17 05/20/17 05/20/17 07:00 15:00 23:00 07:00 15:00 23:00 Intake Total 1200 ml 5240 ml 620 ml 2720 ml Output Total 1000 ml 500 ml Balance 1200 ml 4240 ml 620 ml 2220 ml Intake Oral 1240 ml 120 ml 940 ml IV Total 1200 ml 4000 ml 500 ml 1780 ml Output Urine Total 700 ml 500 ml Gastric Drainage Total 300 ml # Voids 1 # Bowel Movements 5 3 1 1 Laboratory Laboratory Tests Test 05/20/17 14:09 White Blood Count 12.0 Red Blood Count 2.59 Hemoglobin 7.8 Hematocrit 24.2 Mean Corpuscular Volume 93.8 Mean Corpuscular Hemoglobin 30.2 Mean Corpuscular Hemoglobin Concent 32.2 Red Cell Distribution Width 15.0 Platelet Count 413 Mean Platelet Volume 8.3 Neutrophils (%) (Auto) 75.8 Lymphocytes (%) (Auto) 14.0 Monocytes (%) (Auto) 8.9 Eosinophils (%) (Auto) 0.9 Basophils (%) (Auto) 0.4 Neutrophils # (Auto) 9.1 Lymphocytes # (Auto) 1.7 Monocytes # (Auto) 1.1 Eosinophils # (Auto) 0.1 Basophils # (Auto) 0.1 CBC Comment DIFF FINAL Differential Comment Blood Urea Nitrogen 2 Creatinine 0.31 Random Glucose 120 Calcium Level 7.5 Sodium Level 135 Potassium Level 3.3 Chloride Level 100 Carbon Dioxide Level 23.8 Anion Gap 11 Estimat Glomerular Filtration Rate 234 Lipase 801 Date/Time Source Procedure Growth Status 05/13/17 20:23 Blood Peripheral Aerobic Blood Culture - Final NO GROWTH IN 5 DAYS Complete 05/13/17 20:23 Blood Peripheral Anaerobic Blood Culture - Final NO GROWTH IN 5 DAYS Complete 05/18/17 05:00 Stool Stool Stool Occult Blood (JAYESH) - Final HEMOCCULT NEGATIVE Complete Imaging Last Impressions Abdomen X-Ray 05/18/17 0000 Signed Impressions: Service Date/Time: Thursday, May 18, 2017 11:28 - CONCLUSION: Ileus type pattern. Hepatomegaly. Tang Garcia Jr., MD Chest X-Ray 05/15/17 0000 Signed Impressions: Service Date/Time: Monday, May 15, 2017 10:23 - CONCLUSION: NG tube appears appropriate in position. Stable basilar airspace disease. Dorothy Zepeda MD Cholangiopancreatography MRI 05/14/17 0000 Signed Impressions: Service Date/Time: Sunday, May 14, 2017 09:13 - CONCLUSION: 1. There is definite evidence of pancreatitis with inflammatory changes and fluid in the upper abdomen. 2. There is a focal nonspecific low signal lesion in head of pancreas measuring 2.5 x 1.5 cm without abnormal enhancement. The distal common bile duct at this level is narrowed suggestive of a stricture. The common bile duct is dilated at 1.8 cm. A focal mass in the head of the pancreas would be a primary consideration. However, there is also diffuse inflammatory changes involving the pancreas as well as inflammatory changes in the upper abdomen indicating pancreatitis which I believe confuses the issue. When the inflammatory changes associated with pancreatitis have resolved, ERCP would be recommended for further evaluation of this area. Sandro London MD Abdomen/Pelvis CT 05/13/17 1317 Signed Impressions: Service Date/Time: Saturday, May 13, 2017 17:29 - CONCLUSION: 1. Cirrhosis. 2. Findings suggesting acute pancreatitis with large pseudocyst measuring 7.7 x 5.8 x 2.8 cm. 3. Low density mass involving the head of the pancreas. Measuring 2.1 x 1.8 x 1.7 cm. I'm concerned this relates to malignancy. There is clearly some mass effect on the pancreatic duct which is mildly dilated within the body and tail measuring 4 mm. Consider MRI to further evaluate. 4. Ileus type pattern. 5. A small focus of air and fluid directly adjacent to the sigmoid colon. I am unsure if this relates to a very large diverticulum or to a contained microperforation. 6. Right basilar atelectasis. Tang Garcia Jr., MD Physical Exam GEN: Ill/malnourished appearing HEENT: Normocephalic; atraumatic; no jaundice. CHEST: CTA, diminished CARDIAC: Regular, tachycardic ABDOMEN: Soft, distended, diffuse tenderness, (+) BS. NGT clamped EXTREMITIES: No clubbing, cyanosis, + mild pitting edema. SKIN: Normal; no rash; no jaundice. HIGHER LEVEL TEACHING ASSISTANT: No focal deficits; alert and oriented times three. Assessment and Plan Plan ASSESSMENT: - Pancreatitis with large pseudocyst, pancreatic head mass. CT scan of the abdomen and pelvis with IV contrast (05/13/17) and this revealed cirrhosis, findings suggesting acute pancreatitis with large pseudocyst measuring 7.7 x 5.8 x 2.8 cm. Low density mass involving the head of the pancreas. Measuring 2.1 x 1.8 x 1.7 cm. I'm concerned this relates to malignancy. There is clearly some mass effect of the pancreatic duct which is mildly dilated within the body and spell measuring 4 mm. Consider MRI to further evaluate. Ileus type pattern. A small focus of air and fluid directly adjacent to the sigmoid colon. I am unsure if this relates to a very large I've reticulin or tic contained microperforation. Right basilar atelectasis. MRCP with and without contrast (05/14/17)----> there is definite evidence of pancreatitis with inflammatory changes and fluid in the upper abdomen. There is a focal nonspecific low signal lesion in the head of the pancreas measuring 2.5 x 1.5 cm without abnormal enhancement. The distal common bile duct at this level is narrowed suggestive of a stricture. The common bile duct is dilated at 1.8 cm. A focal mass in the head of the pancreas would be a primary consideration. However there is also diffuse inflammatory changes involving then pancreas as well as inflammatory changes in the abdomen indicating pancreatitis which I believe confuses the issue. When the inflammatory changes associated with pancreatitis have resolved, ERCP would be recommended for further evaluation of this area. CEA, Ca19-9 26.7. NPO. NGT clamped. GS following. She has a large pseudocyst and pancreatic head mass, although it is unclear if this an inflammatory mass r/t pancreatitis vs. malignant mass at this time. D/W Dr. Child---> high risk for procedure, as her INR is high. Will plan for EUS once the fluid in abdomen has matured and coagulopathy improved. Possible ERCP pending EUS results. Will need repeat imaging. D/W Dr. Busch TPN vs. post pyloric feedings, recommend trial of clears if able. Cipro/Flagyl, IVF, PPI - Abdominal distention, n/v. Likely related to above. NGT clamped. KUB ()---> ileus type pattern. Hepatomegaly. - Leukocytosis. WBC 13.7, improved. Bcx no growth 5 day. Cipro/flagyl - Electrolyte abnormalities. Replacement per attending. - Anemia, no acute blood loss. HH trending down. 7.4/22.4. Hemoccult negative. - ETOH abuse. DT precautions per attending. - S/P recent hospitalization at [facility] [place] for large complex pelvic abscess with concern for possible perforated Meckel's diverticulum. S/P exploration with washout and drainage of abscess with drain placement on (04/17/17) with Dr. Nichole. PLAN: - Clears - d/c NGT - Cont. Protonix - Cont. Cipro/Flagyl - Monitor HH - Transfuse as necessary - Monitor labs - Supportive care - Further recommendations to follow based on results of above - Possible EUS once fluid matures, possible ERCP pending EUS results This pt seen by myself and Camryn Bland May 20, 2017 17:42
[2017-05-20] MEDS: LORazepam 0.5 MG TAB PO PRN (22:48)
[2017-05-21] VITALS (7 sets, daily range): BP systolic 104–128; BP diastolic 59–85; PULSE 88–115; RESP 17–18; TEMP 98.3–99.5; O2SAT 93–99
[2017-05-21] MEDS: metroNIDAZOLE 500 MG INJ 100 ML IV SCH ×3 (03:29→19:51)
[2017-05-21] MEDS: NS + KCL 20 MEQ INJ 1,000 ML IV SCH ×2 (03:30→09:42)
[2017-05-21] MEDS: HYDROmorphone HCL PF 1 MG/ML VIAL IV PRN ×6 (03:31→22:53)
[2017-05-21 08:09] LABS: AUTOMATED NEUTROPHIL # 7.8 TH/MM3 (1.8-7.7); BASOPHIL # 0.1 TH/MM3 (0-0.2); BASOPHIL % 0.8 % (0.0-2.0); EOSINOPHIL # 0.1 TH/MM3 (0-0.4); EOSINOPHIL % 1.1 % (0.0-4.0); HEMATOCRIT 21.8 % (35.0-46.0); HEMO FLAGS DIFF FINAL; LYMPH % 14.6 % (9.0-44.0); LYMPHOCYTE # 1.6 TH/MM3 (1.0-4.8); MEAN CELL VOLUME 93.1 FL (80.0-100.0); MEAN CORPUSCULAR HEMOGLOBIN 30.9 PG (27.0-34.0); MEAN CORPUSCULAR HGB CONC 33.1 % (32.0-36.0); MONO % 10.3 % (0.0-8.0); NEUT % 73.2 % (16.0-70.0); PLATELET COUNT 369 TH/MM3 (150-450); RED BLOOD COUNT 2.34 MIL/MM3 (4.00-5.30); RED CELL DISTRIBUTION WIDTH 14.4 % (11.6-17.2); WHITE BLOOD COUNT 10.7 TH/MM3 (4.0-11.0)
[2017-05-21 08:49] LABS: BICARBONATE 23.9 MEQ/L (21.0-32.0); MAGNESIUM 1.2 MG/DL (1.5-2.5)
--- NOTE | 2017-05-21 09:06 | HHI.PR ---
Subjective Remarks follow-up abdominal pain. Patient reports pain is currently 7/10. She states that she pulled her NG tube out last night. Denies nausea or vomiting. Reports significant swelling of her lower extremities. Denies chest pain or dyspnea. Objective Vitals Vital Signs Date Time Temp Pulse Resp B/P (MAP) Pulse Ox O2 Delivery O2 Flow Rate FiO2 05/21/17 08:00 98.7 100 18 116/78 (91) 95 05/21/17 04:00 99.5 112 18 114/80 (91) 93 05/21/17 04:00 104 05/21/17 00:00 104 05/21/17 00:00 99.4 113 17 128/85 (99) 99 05/20/17 20:00 97.2 117 18 123/87 (99) 98 05/20/17 20:00 118 05/20/17 16:31 97.9 103 18 105/76 (86) 97 05/20/17 12:52 96.2 113 18 121/88 (99) 96 05/20/17 12:00 110 05/20/17 11:23 16 05/20/17 09:34 16 I/O 05/20/17 05/20/17 05/20/17 05/21/17 05/21/17 05/21/17 06:59 14:59 22:59 06:59 14:59 22:59 Intake Total 2720 ml 120 ml Output Total 500 ml 300 ml Balance 2220 ml -300 ml 120 ml Intake Oral 940 ml 120 ml IV Total 1780 ml Output Urine Total 500 ml 300 ml # Voids 1 1 1 # Bowel Movements 1 Result Diagram: 05/21/17 0735 05/20/17 1409 Imaging Last Impressions Abdomen X-Ray 05/18/17 0000 Signed Impressions: Service Date/Time: Thursday, May 18, 2017 11:28 - CONCLUSION: Ileus type pattern. Hepatomegaly. Tang Garcia Jr., MD Chest X-Ray 05/15/17 0000 Signed Impressions: Service Date/Time: Monday, May 15, 2017 10:23 - CONCLUSION: NG tube appears appropriate in position. Stable basilar airspace disease. Dorothy Zepeda MD Cholangiopancreatography MRI 05/14/17 0000 Signed Impressions: Service Date/Time: Sunday, May 14, 2017 09:13 - CONCLUSION: 1. There is definite evidence of pancreatitis with inflammatory changes and fluid in the upper abdomen. 2. There is a focal nonspecific low signal lesion in head of pancreas measuring 2.5 x 1.5 cm without abnormal enhancement. The distal common bile duct at this level is narrowed suggestive of a stricture. The common bile duct is dilated at 1.8 cm. A focal mass in the head of the pancreas would be a primary consideration. However, there is also diffuse inflammatory changes involving the pancreas as well as inflammatory changes in the upper abdomen indicating pancreatitis which I believe confuses the issue. When the inflammatory changes associated with pancreatitis have resolved, ERCP would be recommended for further evaluation of this area. Sandro London MD Abdomen/Pelvis CT 05/13/17 1317 Signed Impressions: Service Date/Time: Saturday, May 13, 2017 17:29 - CONCLUSION: 1. Cirrhosis. 2. Findings suggesting acute pancreatitis with large pseudocyst measuring 7.7 x 5.8 x 2.8 cm. 3. Low density mass involving the head of the pancreas. Measuring 2.1 x 1.8 x 1.7 cm. I'm concerned this relates to malignancy. There is clearly some mass effect on the pancreatic duct which is mildly dilated within the body and tail measuring 4 mm. Consider MRI to further evaluate. 4. Ileus type pattern. 5. A small focus of air and fluid directly adjacent to the sigmoid colon. I am unsure if this relates to a very large diverticulum or to a contained microperforation. 6. Right basilar atelectasis. Tang Garcia Jr., MD Objective Remarks General: No acute distress. Heart: Regular rate and rhythm. No murmur. Lungs: Clear to auscultation bilaterally. No wheezes, rales, or rhonchi. Breathing is nonlabored. Abdomen: Moderately distended. Tender to palpation diffusely. Positive bowel sounds. Extremities: 1+ bilateral lower extremity edema. Psych: Alert and oriented. Procedures None Urinary Catheter: No Vascular Central Line Catheter: No A/P Problem List: (1) Sepsis ICD Code: A41.9 - Sepsis, unspecified organism (2) Pancreatitis ICD Code: K85.90 - Acute pancreatitis without necrosis or infection, unspecified (3) Pancreatic mass ICD Code: K86.9 - Disease of pancreas, unspecified (4) S/P small bowel resection ICD Code: Z90.49 - Acquired absence of other specified parts of digestive tract (5) Hypokalemia ICD Code: E87.6 - Hypokalemia Status: Acute (6) Alcohol abuse ICD Code: F10.10 - Alcohol abuse Status: Chronic (7) Tobacco abuse ICD Code: Z72.0 - Tobacco use Assessment and Plan 1. Sepsis: Source likely abdominal. Blood cultures are negative so far. Continue IV antibiotics. WBCs improving. Leukocytosis resolved. 2. Pancreatitis: Follow lipase. Clear liquid diet. CT shows acute pancreatitis with pseudocyst. Appreciate GI and general surgery recommendations. 3. Pancreatic mass: MRI report noted. Appreciate surgery, GI recommendations. 4. Abdominal pain, distention: NG tube removed. Continue clear liquid diet as tolerated. 5. S/P small bowel resection: Patient had not followed up as outpatient post- op. Sudha removed in ER. Management per general surgery. 6. Hypokalemia: Supplement potassium. Labs are pending today. 7. Tobacco abuse: Counselled. 8. DVT prophylaxis: SKYLER Mcnulty. Avoid chemical prophylaxis secondary to coagulopathy, possible need for surgical intervention. 9. Hypomagnesemia: Improved. 10. Anxiety: Lorazepam as needed. 11. Seizure disorder: Resume Keppra. Seizure precautions. 12. Lower extremity edema: Resume Lasix. Agustín Mora MD May 21, 2017 09:06
[2017-05-21 09:26] LABS: CALCIUM-PROTEIN CORRECTED 8.1 MG/DL (8.5-10.1)
[2017-05-21] MEDS: PANTOPRAZOLE SODIUM 40 MG VIAL IV PUSH SCH ×2 (09:41→19:52)
[2017-05-21] MEDS: THIAMINE HCL 100 MG TAB PO SCH (09:41)
[2017-05-21] MEDS: levETIRAcetam 500 MG TAB PO SCH ×2 (09:41→19:51)
[2017-05-21] MEDS: POTASSIUM CHLORIDE 20 MEQ CONTROLLED RELEASE TAB PO SCH ×2 (09:41→19:52)
[2017-05-21] MEDS: FUROSEMIDE 40 MG TAB PO SCH (09:42)
[2017-05-21] MEDS: SODIUM CHLORIDE 0.9% FLUSH 10 ML FLUSH IV FLUSH SCH ×2 (09:42→19:52)
[2017-05-21] MEDS: CIPROFLOXACIN 400 MG PREMIX 200 ML IV SCH ×2 (09:42→22:19)
[2017-05-21] MEDS: MAGNESIUM SULFATE 1 GM PREMIX 100 ML IV SCH ×2 (11:03→14:06)
[2017-05-21] MEDS: LORazepam 0.5 MG TAB PO PRN (12:17)
--- NOTE | 2017-05-21 14:32 | HHI.GIFU ---
Subjective Remarks patient is sitting up in chair, tolerating clears okay, denies N/V. still with lower and right sided abd pain, inquiring about pain meds Objective Vitals I&O Vital Signs Date Time Temp Pulse Resp B/P (MAP) Pulse Ox O2 Delivery O2 Flow Rate FiO2 05/21/17 12:00 98.5 93 18 122/70 (87) 96 05/21/17 08:00 98.7 100 18 116/78 (91) 95 05/21/17 04:00 99.5 112 18 114/80 (91) 93 05/21/17 04:00 104 05/21/17 00:00 104 05/21/17 00:00 99.4 113 17 128/85 (99) 99 05/20/17 20:00 97.2 117 18 123/87 (99) 98 05/20/17 20:00 118 05/20/17 16:31 97.9 103 18 105/76 (86) 97 I/O 05/20/17 05/20/17 05/20/17 05/21/17 05/21/17 05/21/17 06:59 14:59 22:59 06:59 14:59 22:59 Intake Total 2720 ml 420 ml Output Total 500 ml 300 ml 2050 ml Balance 2220 ml -300 ml -1630 ml Intake Oral 940 ml 120 ml IV Total 1780 ml 300 ml Output Urine Total 500 ml 300 ml 2050 ml # Voids 1 1 1 # Bowel Movements 1 Laboratory Laboratory Tests Test 05/21/17 07:35 White Blood Count 10.7 Red Blood Count 2.34 Hemoglobin 7.2 Hematocrit 21.8 Mean Corpuscular Volume 93.1 Mean Corpuscular Hemoglobin 30.9 Mean Corpuscular Hemoglobin Concent 33.1 Red Cell Distribution Width 14.4 Platelet Count 369 Mean Platelet Volume 8.4 Neutrophils (%) (Auto) 73.2 Lymphocytes (%) (Auto) 14.6 Monocytes (%) (Auto) 10.3 Eosinophils (%) (Auto) 1.1 Basophils (%) (Auto) 0.8 Neutrophils # (Auto) 7.8 Lymphocytes # (Auto) 1.6 Monocytes # (Auto) 1.1 Eosinophils # (Auto) 0.1 Basophils # (Auto) 0.1 CBC Comment DIFF FINAL Differential Comment Blood Urea Nitrogen 3 Creatinine 0.22 Random Glucose 96 Total Protein 5.5 Calcium Level 7.2 Magnesium Level 1.2 Sodium Level 136 Potassium Level 3.0 Chloride Level 103 Carbon Dioxide Level 23.9 Anion Gap 9 Estimat Glomerular Filtration Rate 347 Protein Corrected Calcium 8.1 Lipase 580 Date/Time Source Procedure Growth Status 05/13/17 20:23 Blood Peripheral Aerobic Blood Culture - Final NO GROWTH IN 5 DAYS Complete 05/13/17 20:23 Blood Peripheral Anaerobic Blood Culture - Final NO GROWTH IN 5 DAYS Complete 05/18/17 05:00 Stool Stool Stool Occult Blood (JAYESH) - Final HEMOCCULT NEGATIVE Complete Imaging Last Impressions Abdomen X-Ray 05/18/17 0000 Signed Impressions: Service Date/Time: Thursday, May 18, 2017 11:28 - CONCLUSION: Ileus type pattern. Hepatomegaly. Tang Garcia Jr., MD Chest X-Ray 05/15/17 0000 Signed Impressions: Service Date/Time: Monday, May 15, 2017 10:23 - CONCLUSION: NG tube appears appropriate in position. Stable basilar airspace disease. Dorothy Zepeda MD Cholangiopancreatography MRI 05/14/17 0000 Signed Impressions: Service Date/Time: Sunday, May 14, 2017 09:13 - CONCLUSION: 1. There is definite evidence of pancreatitis with inflammatory changes and fluid in the upper abdomen. 2. There is a focal nonspecific low signal lesion in head of pancreas measuring 2.5 x 1.5 cm without abnormal enhancement. The distal common bile duct at this level is narrowed suggestive of a stricture. The common bile duct is dilated at 1.8 cm. A focal mass in the head of the pancreas would be a primary consideration. However, there is also diffuse inflammatory changes involving the pancreas as well as inflammatory changes in the upper abdomen indicating pancreatitis which I believe confuses the issue. When the inflammatory changes associated with pancreatitis have resolved, ERCP would be recommended for further evaluation of this area. Sandro London MD Abdomen/Pelvis CT 05/13/17 1317 Signed Impressions: Service Date/Time: Saturday, May 13, 2017 17:29 - CONCLUSION: 1. Cirrhosis. 2. Findings suggesting acute pancreatitis with large pseudocyst measuring 7.7 x 5.8 x 2.8 cm. 3. Low density mass involving the head of the pancreas. Measuring 2.1 x 1.8 x 1.7 cm. I'm concerned this relates to malignancy. There is clearly some mass effect on the pancreatic duct which is mildly dilated within the body and tail measuring 4 mm. Consider MRI to further evaluate. 4. Ileus type pattern. 5. A small focus of air and fluid directly adjacent to the sigmoid colon. I am unsure if this relates to a very large diverticulum or to a contained microperforation. 6. Right basilar atelectasis. Tang Garcia Jr., MD Physical Exam GEN: Ill/malnourished appearing HEENT: Normocephalic; atraumatic; no jaundice. CHEST: CTA, diminished CARDIAC: Regular, tachycardic ABDOMEN: Soft, distended, diffuse tenderness, (+) BS. EXTREMITIES: No clubbing, cyanosis, + mild pitting edema. SKIN: Normal; no rash; no jaundice. 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 Assessment and Plan Plan ASSESSMENT: - Pancreatitis with large pseudocyst, pancreatic head mass. CT scan of the abdomen and pelvis with IV contrast (05/13/17) and this revealed cirrhosis, findings suggesting acute pancreatitis with large pseudocyst measuring 7.7 x 5.8 x 2.8 cm. Low density mass involving the head of the pancreas. Measuring 2.1 x 1.8 x 1.7 cm. I'm concerned this relates to malignancy. There is clearly some mass effect of the pancreatic duct which is mildly dilated within the body and spell measuring 4 mm. Consider MRI to further evaluate. Ileus type pattern. A small focus of air and fluid directly adjacent to the sigmoid colon. I am unsure if this relates to a very large I've reticulin or tic contained microperforation. Right basilar atelectasis. MRCP with and without contrast (05/14/17)----> there is definite evidence of pancreatitis with inflammatory changes and fluid in the upper abdomen. There is a focal nonspecific low signal lesion in the head of the pancreas measuring 2.5 x 1.5 cm without abnormal enhancement. The distal common bile duct at this level is narrowed suggestive of a stricture. The common bile duct is dilated at 1.8 cm. A focal mass in the head of the pancreas would be a primary consideration. However there is also diffuse inflammatory changes involving then pancreas as well as inflammatory changes in the abdomen indicating pancreatitis which I believe confuses the issue. When the inflammatory changes associated with pancreatitis have resolved, ERCP would be recommended for further evaluation of this area. CEA, Ca19-9 26.7. GS following. She has a large pseudocyst and pancreatic head mass, although it is unclear if this an inflammatory mass r/t pancreatitis vs. malignant mass at this time. D/W Dr. Child---> high risk for procedure, as her INR is high. Will plan for EUS once the fluid in abdomen has matured and coagulopathy improved. Possible ERCP pending EUS results. Will need repeat imaging. Lipase trending down . Cipro/Flagyl, IVF, PPI - Abdominal distention, n/v. Likely related to above. no more N/V KUB (05/18/17 )---> ileus type pattern. Hepatomegaly. - Leukocytosis. WBC 10.7 improved. Bcx no growth 5 day. Cipro/flagyl - Electrolyte abnormalities. Replacement per attending. - Anemia, no acute blood loss. HH slightly trending down. 7.2/21.8. Hemoccult negative. No bleeding reported - ETOH abuse. DT precautions per attending. - S/P recent hospitalization at [facility] for large complex pelvic abscess with concern for possible perforated Meckel's diverticulum. S/P exploration with washout and drainage of abscess with drain placement on (04/17/17) with Dr. iNchole. PLAN: - Advance to full liquid - Cont. Protonix - Cont. Cipro/Flagyl - lipase, in am - Monitor HH - Transfuse as necessary - Monitor labs - Supportive care - Further recommendations to follow based on results of above - Possible EUS once fluid matures, possible ERCP pending EUS results This pt seen by myself and Alessandra Rubio May 21, 2017 14:31
[2017-05-21] MEDS: POTASSIUM CHLOR 20 MEQ PREMIX 100 ML IV SCH ×2 (15:06→17:21)
--- NOTE | 2017-05-21 20:06 | HHI.PR ---
Subjective Subjective Notes feels better, eating some fulls Objective Vitals/I&O Vital Signs Date Time Temp Pulse Resp B/P (MAP) Pulse Ox O2 Delivery O2 Flow Rate FiO2 05/21/17 16:00 115 05/21/17 16:00 98.3 18 104/59 (74) 97 Labs Laboratory Tests Test 05/21/17 07:35 White Blood Count 10.7 Red Blood Count 2.34 Hemoglobin 7.2 Hematocrit 21.8 Mean Corpuscular Volume 93.1 Mean Corpuscular Hemoglobin 30.9 Mean Corpuscular Hemoglobin Concent 33.1 Red Cell Distribution Width 14.4 Platelet Count 369 Mean Platelet Volume 8.4 Neutrophils (%) (Auto) 73.2 Lymphocytes (%) (Auto) 14.6 Monocytes (%) (Auto) 10.3 Eosinophils (%) (Auto) 1.1 Basophils (%) (Auto) 0.8 Neutrophils # (Auto) 7.8 Lymphocytes # (Auto) 1.6 Monocytes # (Auto) 1.1 Eosinophils # (Auto) 0.1 Basophils # (Auto) 0.1 CBC Comment DIFF FINAL Differential Comment Blood Urea Nitrogen 3 Creatinine 0.22 Random Glucose 96 Total Protein 5.5 Calcium Level 7.2 Magnesium Level 1.2 Sodium Level 136 Potassium Level 3.0 Chloride Level 103 Carbon Dioxide Level 23.9 Anion Gap 9 Estimat Glomerular Filtration Rate 347 Protein Corrected Calcium 8.1 Lipase 580 Date/Time Source Procedure Growth Status 05/13/17 20:23 Blood Peripheral Aerobic Blood Culture - Final NO GROWTH IN 5 DAYS Complete 05/13/17 20:23 Blood Peripheral Anaerobic Blood Culture - Final NO GROWTH IN 5 DAYS Complete 05/18/17 05:00 Stool Stool Stool Occult Blood (JAYESH) - Final HEMOCCULT NEGATIVE Complete Narrative Exam abdomen distended, tender without peritonitis A/P Assessment and Plan 42 year old female s/p ex lap at OSH; now with pancreatitis; ETOH abuse; pancreatic pseudocyst -NG out -Clears, advance diet slowly to LOW FAT -OOB and mobilize -No surgery indicated Allan Canas MD May 21, 2017 20:06
[2017-05-22] VITALS (12 sets, daily range): BP systolic 112–118; BP diastolic 70–81; PULSE 96–121; RESP 16–18; TEMP 98.1–100.1; O2SAT 96–98
[2017-05-22] MEDS: HYDROmorphone HCL PF 1 MG/ML VIAL IV PRN ×4 (01:50→12:20)
[2017-05-22] MEDS: metroNIDAZOLE 500 MG INJ 100 ML IV SCH ×3 (04:46→19:54)
[2017-05-22] MEDS: THIAMINE HCL 100 MG TAB PO SCH (07:47)
[2017-05-22] MEDS: levETIRAcetam 500 MG TAB PO SCH ×2 (07:47→19:54)
[2017-05-22] MEDS: FUROSEMIDE 40 MG TAB PO SCH (07:47)
[2017-05-22] MEDS: PANTOPRAZOLE SODIUM 40 MG VIAL IV PUSH SCH ×2 (07:47→20:11)
[2017-05-22] MEDS: POTASSIUM CHLORIDE 20 MEQ CONTROLLED RELEASE TAB PO SCH ×2 (07:48→19:55)
[2017-05-22] MEDS: SODIUM CHLORIDE 0.9% FLUSH 10 ML FLUSH IV FLUSH SCH ×2 (07:48→20:11)
[2017-05-22] MEDS: CIPROFLOXACIN 400 MG PREMIX 200 ML IV SCH ×2 (07:48→23:14)
[2017-05-22 08:37] LABS: AUTOMATED NEUTROPHIL # 7.2 TH/MM3 (1.8-7.7); BASOPHIL # 0.1 TH/MM3 (0-0.2); BASOPHIL % 0.7 % (0.0-2.0); EOSINOPHIL # 0.2 TH/MM3 (0-0.4); EOSINOPHIL % 1.8 % (0.0-4.0); HEMATOCRIT 21.3 % (35.0-46.0); HEMO FLAGS DIFF FINAL; LYMPH % 15.6 % (9.0-44.0); LYMPHOCYTE # 1.6 TH/MM3 (1.0-4.8); MEAN CELL VOLUME 94.1 FL (80.0-100.0); MEAN CORPUSCULAR HEMOGLOBIN 32.2 PG (27.0-34.0); MEAN CORPUSCULAR HGB CONC 34.2 % (32.0-36.0); MONO % 12.3 % (0.0-8.0); NEUT % 69.6 % (16.0-70.0); PLATELET COUNT 403 TH/MM3 (150-450); RED BLOOD COUNT 2.27 MIL/MM3 (4.00-5.30); RED CELL DISTRIBUTION WIDTH 14.6 % (11.6-17.2); WHITE BLOOD COUNT 10.4 TH/MM3 (4.0-11.0)
--- NOTE | 2017-05-22 08:53 | HHI.PR ---
Subjective Remarks Follow up abdominal pain. Patient is tolerating full liquid diet and requesting that diet be advanced further. Abdominal pain is improving. Patient reports increased swelling in her legs, which is uncomfortable. Denies chest pain, dyspnea. Objective Vitals Vital Signs Date Time Temp Pulse Resp B/P (MAP) Pulse Ox O2 Delivery O2 Flow Rate FiO2 05/22/17 08:00 98.8 112 18 117/77 (90) 96 05/22/17 05:59 109 05/22/17 04:00 98.7 110 18 118/78 (91) 97 05/22/17 00:03 110 05/22/17 00:00 100.0 110 18 117/78 (91) 97 05/21/17 20:09 101 05/21/17 16:00 115 05/21/17 16:00 98.3 108 18 104/59 (74) 97 05/21/17 12:24 88 05/21/17 12:00 98.5 93 18 122/70 (87) 96 I/O 05/21/17 05/21/17 05/21/17 05/22/17 05/22/17 05/22/17 07:00 15:00 23:00 07:00 15:00 23:00 Intake Total 1020 ml 200 ml Output Total 2050 ml 900 ml 400 ml 900 ml Balance -1030 ml -700 ml -400 ml -900 ml Intake Oral 720 ml IV Total 300 ml 200 ml Output Urine Total 2050 ml 900 ml 400 ml 900 ml # Voids 1 2 # Bowel Movements 0 Result Diagram: 05/22/17 0801 05/21/17 0735 Imaging Last Impressions Abdomen X-Ray 05/18/17 0000 Signed Impressions: Service Date/Time: Thursday, May 18, 2017 11:28 - CONCLUSION: Ileus type pattern. Hepatomegaly. Tang Garcia Jr., MD Chest X-Ray 05/15/17 0000 Signed Impressions: Service Date/Time: Monday, May 15, 2017 10:23 - CONCLUSION: NG tube appears appropriate in position. Stable basilar airspace disease. Dorothy Zepeda MD Cholangiopancreatography MRI 05/14/17 0000 Signed Impressions: Service Date/Time: Sunday, May 14, 2017 09:13 - CONCLUSION: 1. There is definite evidence of pancreatitis with inflammatory changes and fluid in the upper abdomen. 2. There is a focal nonspecific low signal lesion in head of pancreas measuring 2.5 x 1.5 cm without abnormal enhancement. The distal common bile duct at this level is narrowed suggestive of a stricture. The common bile duct is dilated at 1.8 cm. A focal mass in the head of the pancreas would be a primary consideration. However, there is also diffuse inflammatory changes involving the pancreas as well as inflammatory changes in the upper abdomen indicating pancreatitis which I believe confuses the issue. When the inflammatory changes associated with pancreatitis have resolved, ERCP would be recommended for further evaluation of this area. Sandro London MD Abdomen/Pelvis CT 05/13/17 1317 Signed Impressions: Service Date/Time: Saturday, May 13, 2017 17:29 - CONCLUSION: 1. Cirrhosis. 2. Findings suggesting acute pancreatitis with large pseudocyst measuring 7.7 x 5.8 x 2.8 cm. 3. Low density mass involving the head of the pancreas. Measuring 2.1 x 1.8 x 1.7 cm. I'm concerned this relates to malignancy. There is clearly some mass effect on the pancreatic duct which is mildly dilated within the body and tail measuring 4 mm. Consider MRI to further evaluate. 4. Ileus type pattern. 5. A small focus of air and fluid directly adjacent to the sigmoid colon. I am unsure if this relates to a very large diverticulum or to a contained microperforation. 6. Right basilar atelectasis. Tang Garcia Jr., MD Objective Remarks General: No acute distress. Heart: Regular rate and rhythm. No murmur. Lungs: Clear to auscultation bilaterally. No wheezes, rales, or rhonchi. Breathing is nonlabored. Abdomen: Mildly distended. Less tender to palpation today. Positive bowel sounds. Extremities: 2+ bilateral lower extremity edema. Psych: Alert and oriented. Procedures None Urinary Catheter: No Vascular Central Line Catheter: No A/P Problem List: (1) Sepsis ICD Code: A41.9 - Sepsis, unspecified organism (2) Pancreatitis ICD Code: K85.90 - Acute pancreatitis without necrosis or infection, unspecified (3) Pancreatic mass ICD Code: K86.9 - Disease of pancreas, unspecified (4) S/P small bowel resection ICD Code: Z90.49 - Acquired absence of other specified parts of digestive tract (5) Hypokalemia ICD Code: E87.6 - Hypokalemia Status: Acute (6) Alcohol abuse ICD Code: F10.10 - Alcohol abuse Status: Chronic (7) Tobacco abuse ICD Code: Z72.0 - Tobacco use Assessment and Plan 1. Sepsis: Source likely abdominal. Blood cultures are negative so far. Continue IV antibiotics. WBCs improving. Leukocytosis resolved. 2. Pancreatitis: Follow lipase. Clear liquid diet. CT shows acute pancreatitis with pseudocyst. Appreciate GI and general surgery recommendations. 3. Pancreatic mass: MRI report noted. Appreciate surgery, GI recommendations. 4. Abdominal pain, distention: NG tube removed. Full liquid diet. Advance to heart healthy if OK with GI. 5. S/P small bowel resection: Patient had not followed up as outpatient post- op. Sudha removed in ER. Management per general surgery. 6. Hypokalemia: Supplement potassium. Labs are pending today. 7. Tobacco abuse: Counselled. 8. DVT prophylaxis: SKYLER Mcnulty. Avoid chemical prophylaxis secondary to coagulopathy, possible need for surgical intervention. 9. Hypomagnesemia: Improved. 10. Anxiety: Lorazepam as needed. 11. Seizure disorder: Resume Keppra. Seizure precautions. 12. Lower extremity edema: Continue Lasix. 13. Hypomagnesemia: Supplement magnesium. Labs are pending today. gAustín Mora MD May 22, 2017 08:53
[2017-05-22 09:00] LABS: BICARBONATE 23.2 MEQ/L (21.0-32.0); MAGNESIUM 1.3 MG/DL (1.5-2.5); POTASSIUM 3.4 MEQ/L (3.5-5.1)
[2017-05-22 09:28] LABS: CALCIUM-PROTEIN CORRECTED 7.7 MG/DL (8.5-10.1)
[2017-05-22] MEDS: LORazepam 0.5 MG TAB PO PRN (10:10)
--- NOTE | 2017-05-22 12:37 | HHI.GIFU ---
Subjective Remarks Lying in bed in no apparent distress. States she is tired. Tolerating full liquid diet. Continues to have RUQ abdominal pain, but states it is improving. Denies nausea or vomiting. Objective Vitals I&O Vital Signs Date Time Temp Pulse Resp B/P (MAP) Pulse Ox O2 Delivery O2 Flow Rate FiO2 05/22/17 12:00 100.1 97 16 113/81 (92) 97 05/22/17 08:00 98.8 112 18 117/77 (90) 96 05/22/17 07:46 96 05/22/17 05:59 109 05/22/17 04:00 98.7 110 18 118/78 (91) 97 05/22/17 00:03 110 05/22/17 00:00 100.0 110 18 117/78 (91) 97 05/21/17 20:09 101 05/21/17 16:00 115 05/21/17 16:00 98.3 108 18 104/59 (74) 97 I/O 05/21/17 05/21/17 05/21/17 05/22/17 05/22/17 05/22/17 07:00 15:00 23:00 07:00 15:00 23:00 Intake Total 1020 ml 200 ml 882 ml Output Total 2050 ml 900 ml 400 ml 2300 ml Balance -1030 ml -700 ml -400 ml -1418 ml Intake Oral 720 ml IV Total 300 ml 200 ml 882 ml Output Urine Total 2050 ml 900 ml 400 ml 2300 ml # Voids 1 2 # Bowel Movements 0 Laboratory Laboratory Tests Test 05/22/17 08:01 White Blood Count 10.4 Red Blood Count 2.27 Hemoglobin 7.3 Hematocrit 21.3 Mean Corpuscular Volume 94.1 Mean Corpuscular Hemoglobin 32.2 Mean Corpuscular Hemoglobin Concent 34.2 Red Cell Distribution Width 14.6 Platelet Count 403 Mean Platelet Volume 8.6 Neutrophils (%) (Auto) 69.6 Lymphocytes (%) (Auto) 15.6 Monocytes (%) (Auto) 12.3 Eosinophils (%) (Auto) 1.8 Basophils (%) (Auto) 0.7 Neutrophils # (Auto) 7.2 Lymphocytes # (Auto) 1.6 Monocytes # (Auto) 1.3 Eosinophils # (Auto) 0.2 Basophils # (Auto) 0.1 CBC Comment DIFF FINAL Differential Comment Blood Urea Nitrogen 1 Creatinine 0.25 Random Glucose 102 Total Protein 5.8 Calcium Level 7.0 Magnesium Level 1.3 Sodium Level 134 Potassium Level 3.4 Chloride Level 102 Carbon Dioxide Level 23.2 Anion Gap 9 Estimat Glomerular Filtration Rate 300 Protein Corrected Calcium 7.7 Lipase 681 Date/Time Source Procedure Growth Status 05/13/17 20:23 Blood Peripheral Aerobic Blood Culture - Final NO GROWTH IN 5 DAYS Complete 05/13/17 20:23 Blood Peripheral Anaerobic Blood Culture - Final NO GROWTH IN 5 DAYS Complete 05/18/17 05:00 Stool Stool Stool Occult Blood (JAYESH) - Final HEMOCCULT NEGATIVE Complete Imaging Last Impressions Abdomen X-Ray 05/18/17 0000 Signed Impressions: Service Date/Time: Thursday, May 18, 2017 11:28 - CONCLUSION: Ileus type pattern. Hepatomegaly. Tang Garcia Jr., MD Chest X-Ray 05/15/17 0000 Signed Impressions: Service Date/Time: Monday, May 15, 2017 10:23 - CONCLUSION: NG tube appears appropriate in position. Stable basilar airspace disease. Dorothy Zepeda MD Cholangiopancreatography MRI 05/14/17 0000 Signed Impressions: Service Date/Time: Sunday, May 14, 2017 09:13 - CONCLUSION: 1. There is definite evidence of pancreatitis with inflammatory changes and fluid in the upper abdomen. 2. There is a focal nonspecific low signal lesion in head of pancreas measuring 2.5 x 1.5 cm without abnormal enhancement. The distal common bile duct at this level is narrowed suggestive of a stricture. The common bile duct is dilated at 1.8 cm. A focal mass in the head of the pancreas would be a primary consideration. However, there is also diffuse inflammatory changes involving the pancreas as well as inflammatory changes in the upper abdomen indicating pancreatitis which I believe confuses the issue. When the inflammatory changes associated with pancreatitis have resolved, ERCP would be recommended for further evaluation of this area. Sandro London MD Abdomen/Pelvis CT 05/13/17 1317 Signed Impressions: Service Date/Time: Saturday, May 13, 2017 17:29 - CONCLUSION: 1. Cirrhosis. 2. Findings suggesting acute pancreatitis with large pseudocyst measuring 7.7 x 5.8 x 2.8 cm. 3. Low density mass involving the head of the pancreas. Measuring 2.1 x 1.8 x 1.7 cm. I'm concerned this relates to malignancy. There is clearly some mass effect on the pancreatic duct which is mildly dilated within the body and tail measuring 4 mm. Consider MRI to further evaluate. 4. Ileus type pattern. 5. A small focus of air and fluid directly adjacent to the sigmoid colon. I am unsure if this relates to a very large diverticulum or to a contained microperforation. 6. Right basilar atelectasis. Tang Garcia Jr., MD Physical Exam HEENT: Normocephalic; atraumatic; no jaundice. CHEST: CTA, diminished CARDIAC: RRR ABDOMEN: Mild distention. Mild TTP at RUQ. Bowel sounds x 4. EXTREMITIES: No clubbing, cyanosis, 2+ pitting edema at bilateral LE SKIN: Normal; no rash; no jaundice. ACCESS NURSE: Alert and oriented. Assessment and Plan Plan ASSESSMENT: - Pancreatitis with large pseudocyst, pancreatic head mass. CT scan of the abdomen and pelvis with IV contrast (05/13/17) and this revealed cirrhosis, findings suggesting acute pancreatitis with large pseudocyst measuring 7.7 x 5.8 x 2.8 cm. Low density mass involving the head of the pancreas. Measuring 2.1 x 1.8 x 1.7 cm. I'm concerned this relates to malignancy. There is clearly some mass effect of the pancreatic duct which is mildly dilated within the body and spell measuring 4 mm. Consider MRI to further evaluate. Ileus type pattern. A small focus of air and fluid directly adjacent to the sigmoid colon. I am unsure if this relates to a very large I've reticulin or tic contained microperforation. Right basilar atelectasis. MRCP with and without contrast (05/14/17)----> there is definite evidence of pancreatitis with inflammatory changes and fluid in the upper abdomen. There is a focal nonspecific low signal lesion in the head of the pancreas measuring 2.5 x 1.5 cm without abnormal enhancement. The distal common bile duct at this level is narrowed suggestive of a stricture. The common bile duct is dilated at 1.8 cm. A focal mass in the head of the pancreas would be a primary consideration. However there is also diffuse inflammatory changes involving then pancreas as well as inflammatory changes in the abdomen indicating pancreatitis which I believe confuses the issue. When the inflammatory changes associated with pancreatitis have resolved, ERCP would be recommended for further evaluation of this area. CEA, Ca19-9 26.7. GS following. She has a large pseudocyst and pancreatic head mass, although it is unclear if this an inflammatory mass r/t pancreatitis vs. malignant mass at this time. D/W Dr. Child---> high risk for procedure, as her INR is high. Will plan for EUS once the fluid in abdomen has matured and coagulopathy improved. Possible ERCP pending EUS results. Will need repeat imaging. Lipase trending down . Cipro/Flagyl, IVF, PPI - Abdominal distention, n/v. Likely related to above. no more N/V KUB (05/18/17 )---> ileus type pattern. Hepatomegaly. - Leukocytosis. WBC 10.7 improved. Bcx no growth 5 day. Cipro/flagyl - Electrolyte abnormalities. Replacement per attending. - Anemia, no acute blood loss. HH slightly trending down. 7.2/21.8. Hemoccult negative. No bleeding reported - ETOH abuse. DT precautions per attending. - S/P recent hospitalization at [facility] for large complex pelvic abscess with concern for possible perforated Meckel's diverticulum. S/P exploration with washout and drainage of abscess with drain placement on (04/17/17) with Dr. Nichole. 05/22/17--Abdominal pain is improving. No N/V today. Tolerating diet. Lipase stable, 681. HH 7.3/21.3. WBC 10.4. PLAN: - Full liquid diet - Cont. Protonix - Cont. Cipro/Flagyl - Monitor HH - Transfuse as necessary - Monitor labs - Supportive care - Further recommendations to follow based on results of above - Possible EUS once fluid matures, possible ERCP pending EUS results Patient seen and examined by Dr. Gary and myself and this note is written on his behalf. Desi Duenas May 22, 2017 12:37
[2017-05-22] MEDS ORDERED: POTASSIUM CHLOR 20 MEQ PREMIX 100 ML IV ONE (13:30)
[2017-05-22] MEDS: MAGNESIUM SULFATE 1 GM PREMIX 100 ML IV SCH ×2 (13:57→15:00)
--- NOTE | 2017-05-22 16:50 | HHI.PR ---
Subjective Subjective Notes no acute issues, lipase up some 680, tolerating fulls Objective Vitals/I&O Vital Signs Date Time Temp Pulse Resp B/P (MAP) Pulse Ox O2 Delivery O2 Flow Rate FiO2 05/22/17 16:00 99.4 99 18 112/79 (90) 98 Labs Laboratory Tests Test 05/22/17 08:01 White Blood Count 10.4 Red Blood Count 2.27 Hemoglobin 7.3 Hematocrit 21.3 Mean Corpuscular Volume 94.1 Mean Corpuscular Hemoglobin 32.2 Mean Corpuscular Hemoglobin Concent 34.2 Red Cell Distribution Width 14.6 Platelet Count 403 Mean Platelet Volume 8.6 Neutrophils (%) (Auto) 69.6 Lymphocytes (%) (Auto) 15.6 Monocytes (%) (Auto) 12.3 Eosinophils (%) (Auto) 1.8 Basophils (%) (Auto) 0.7 Neutrophils # (Auto) 7.2 Lymphocytes # (Auto) 1.6 Monocytes # (Auto) 1.3 Eosinophils # (Auto) 0.2 Basophils # (Auto) 0.1 CBC Comment DIFF FINAL Differential Comment Blood Urea Nitrogen 1 Creatinine 0.25 Random Glucose 102 Total Protein 5.8 Calcium Level 7.0 Magnesium Level 1.3 Sodium Level 134 Potassium Level 3.4 Chloride Level 102 Carbon Dioxide Level 23.2 Anion Gap 9 Estimat Glomerular Filtration Rate 300 Protein Corrected Calcium 7.7 Lipase 681 Date/Time Source Procedure Growth Status 05/13/17 20:23 Blood Peripheral Aerobic Blood Culture - Final NO GROWTH IN 5 DAYS Complete 05/13/17 20:23 Blood Peripheral Anaerobic Blood Culture - Final NO GROWTH IN 5 DAYS Complete 05/18/17 05:00 Stool Stool Stool Occult Blood (JAYESH) - Final HEMOCCULT NEGATIVE Complete Abdomen: Other (diffuse ttp no rebound, incision well healing) A/P Assessment and Plan hx sbr, now with pancreatitis, etoh abuse, pancreatic pseudocyst, mass PLAN regular soft diet, tpn observation trend lipase will follow Jose Nichole MD May 22, 2017 16:50
[2017-05-23] VITALS (11 sets, daily range): BP systolic 96–137; BP diastolic 60–82; PULSE 68–127; RESP 16–18; TEMP 97.9–99.9; O2SAT 95–98
[2017-05-23] MEDS: metroNIDAZOLE 500 MG INJ 100 ML IV SCH ×3 (03:34→20:47)
[2017-05-23] MEDS: LORazepam 0.5 MG TAB PO PRN ×3 (06:01→23:28)
[2017-05-23 07:15] LABS: ANION GAP 10 MEQ/L (5-15); AST (GOT) 24 U/L (15-37); BICARBONATE 24.8 MEQ/L (21.0-32.0); BLOOD UREA NITROGEN 2 MG/DL (7-18); CHLORIDE 99 MEQ/L (98-107); GLOMERULAR FILTRATION RATE 218 ML/MIN (>89); MAGNESIUM 1.5 MG/DL (1.5-2.5); POTASSIUM 3.4 MEQ/L (3.5-5.1); SODIUM (NA) 134 MEQ/L (136-145)
[2017-05-23 07:19] LABS: ALKALINE PHOSPHATASE 400 U/L (45-117); ALT (GPT) 16 U/L (10-53); TOTAL BILIRUBIN ADULT 0.5 MG/DL (0.2-1.0)
[2017-05-23] MEDS: CIPROFLOXACIN 400 MG PREMIX 200 ML IV SCH ×2 (08:13→20:53)
[2017-05-23] MEDS: FUROSEMIDE 40 MG TAB PO SCH (08:13)
[2017-05-23] MEDS: THIAMINE HCL 100 MG TAB PO SCH (08:13)
[2017-05-23] MEDS: POTASSIUM CHLORIDE 20 MEQ CONTROLLED RELEASE TAB PO SCH ×2 (08:13→20:42)
[2017-05-23] MEDS: SODIUM CHLORIDE 0.9% FLUSH 10 ML FLUSH IV FLUSH SCH ×2 (08:14→20:47)
[2017-05-23] MEDS: PANTOPRAZOLE SODIUM 40 MG VIAL IV PUSH SCH ×2 (08:14→20:44)
[2017-05-23] MEDS: levETIRAcetam 500 MG TAB PO SCH ×2 (08:14→20:42)
[2017-05-23] MEDS ORDERED: DIATRIZOATE MEGLUM/DIATRIZOATE SOD 9 ML CUP PO ONE (09:00)
--- NOTE | 2017-05-23 10:06 | HHI.PR ---
Subjective Subjective Notes Up to chair No issues Tolerated breakfast Objective Vitals/I&O Vital Signs Date Time Temp Pulse Resp B/P (MAP) Pulse Ox O2 Delivery O2 Flow Rate FiO2 05/23/17 08:00 99.2 100 16 125/72 (89) 95 Labs Laboratory Tests Test 05/23/17 06:38 Blood Urea Nitrogen 2 Creatinine 0.33 Random Glucose 112 Total Protein 5.9 Albumin 1.6 Calcium Level 7.7 Magnesium Level 1.5 Alkaline Phosphatase 400 Aspartate Amino Transf (AST/SGOT) 24 Alanine Aminotransferase (ALT/SGPT) 16 Total Bilirubin 0.5 Sodium Level 134 Potassium Level 3.4 Chloride Level 99 Carbon Dioxide Level 24.8 Anion Gap 10 Estimat Glomerular Filtration Rate 218 Lipase 462 Date/Time Source Procedure Growth Status 05/13/17 20:23 Blood Peripheral Aerobic Blood Culture - Final NO GROWTH IN 5 DAYS Complete 05/13/17 20:23 Blood Peripheral Anaerobic Blood Culture - Final NO GROWTH IN 5 DAYS Complete 05/18/17 05:00 Stool Stool Stool Occult Blood (JAYESH) - Final HEMOCCULT NEGATIVE Complete Cardiovascular: Regular Lungs: Clear Abdomen: Other (distended; well healed midline incision with octavio removed; tender to palpation ) Extremities: No edema A/P Assessment and Plan 42 year old female s/p ex lap at OSH; now with pancreatitis; ETOH abuse; pancreatic pseudocyst -Heart healthy diet -Continue to trend lipase --462 -OOB and mobilize -No operative plans at this time Attending Note - Dr. Vaughan Abdomen distended but nontender Wound well healed May need pancreatic enzymes chronically The exam, history, and the medical decision-making described in the above note were completed with the assistance of the mid-level provider. I reviewed and agree with the findings presented. I attest that I had a [id number] encounter with the patient on the same day, and personally performed and documented my assessment and findings in the medical record. Cady Ron May 23, 2017 10:06 Alfredo Vaughan MD May 23, 2017 15:32
--- NOTE | 2017-05-23 10:24 | HHI.PR ---
Subjective Remarks Follow up abdominal pain, pancreatitis. Patient states that she feels better today. Tolerating soft diet. Abdominal pain has improved. No nausea/vomiting. Objective Vitals Vital Signs Date Time Temp Pulse Resp B/P (MAP) Pulse Ox O2 Delivery O2 Flow Rate FiO2 05/23/17 08:00 99.2 100 16 125/72 (89) 95 05/23/17 06:43 98.4 70 18 137/64 (88) 98 05/23/17 04:02 102 05/23/17 00:47 97.9 68 18 121/82 (95) 97 05/23/17 00:02 103 05/22/17 21:17 98.1 113 18 113/70 (84) 96 05/22/17 20:02 121 05/22/17 16:15 109 05/22/17 16:00 99.4 99 18 112/79 (90) 98 05/22/17 12:18 112 05/22/17 12:00 100.1 97 16 113/81 (92) 97 I/O 05/22/17 05/22/17 05/22/17 05/23/17 05/23/17 05/23/17 07:00 15:00 23:00 07:00 15:00 23:00 Intake Total 2122 ml 340 ml 120 ml Output Total 400 ml 2300 ml Balance -400 ml -178 ml 340 ml 120 ml Intake Oral 840 ml 240 ml 120 ml IV Total 1282 ml 100 ml 0 ml Output Urine Total 400 ml 2300 ml # Voids 2 1 1 # Bowel Movements 0 0 1 Result Diagram: 05/22/17 0801 05/23/17 0638 Imaging Last Impressions Abdomen X-Ray 05/18/17 0000 Signed Impressions: Service Date/Time: Thursday, May 18, 2017 11:28 - CONCLUSION: Ileus type pattern. Hepatomegaly. Tang Garcia Jr., MD Chest X-Ray 05/15/17 0000 Signed Impressions: Service Date/Time: Monday, May 15, 2017 10:23 - CONCLUSION: NG tube appears appropriate in position. Stable basilar airspace disease. Dorothy Zepeda MD Cholangiopancreatography MRI 05/14/17 0000 Signed Impressions: Service Date/Time: Sunday, May 14, 2017 09:13 - CONCLUSION: 1. There is definite evidence of pancreatitis with inflammatory changes and fluid in the upper abdomen. 2. There is a focal nonspecific low signal lesion in head of pancreas measuring 2.5 x 1.5 cm without abnormal enhancement. The distal common bile duct at this level is narrowed suggestive of a stricture. The common bile duct is dilated at 1.8 cm. A focal mass in the head of the pancreas would be a primary consideration. However, there is also diffuse inflammatory changes involving the pancreas as well as inflammatory changes in the upper abdomen indicating pancreatitis which I believe confuses the issue. When the inflammatory changes associated with pancreatitis have resolved, ERCP would be recommended for further evaluation of this area. Sandro London MD Abdomen/Pelvis CT 05/13/17 1317 Signed Impressions: Service Date/Time: Saturday, May 13, 2017 17:29 - CONCLUSION: 1. Cirrhosis. 2. Findings suggesting acute pancreatitis with large pseudocyst measuring 7.7 x 5.8 x 2.8 cm. 3. Low density mass involving the head of the pancreas. Measuring 2.1 x 1.8 x 1.7 cm. I'm concerned this relates to malignancy. There is clearly some mass effect on the pancreatic duct which is mildly dilated within the body and tail measuring 4 mm. Consider MRI to further evaluate. 4. Ileus type pattern. 5. A small focus of air and fluid directly adjacent to the sigmoid colon. I am unsure if this relates to a very large diverticulum or to a contained microperforation. 6. Right basilar atelectasis. Tang Garcia Jr., MD Objective Remarks General: No acute distress. Heart: Regular rate and rhythm. No murmur. Lungs: Clear to auscultation bilaterally. No wheezes, rales, or rhonchi. Breathing is nonlabored. Abdomen: Mildly distended. Less tender to palpation today. Positive bowel sounds. Extremities: 1+ bilateral lower extremity edema. Psych: Alert and oriented. Procedures None Urinary Catheter: No Vascular Central Line Catheter: No A/P Problem List: (1) Sepsis ICD Code: A41.9 - Sepsis, unspecified organism (2) Pancreatitis ICD Code: K85.90 - Acute pancreatitis without necrosis or infection, unspecified (3) Pancreatic mass ICD Code: K86.9 - Disease of pancreas, unspecified (4) S/P small bowel resection ICD Code: Z90.49 - Acquired absence of other specified parts of digestive tract (5) Hypokalemia ICD Code: E87.6 - Hypokalemia Status: Acute (6) Alcohol abuse ICD Code: F10.10 - Alcohol abuse Status: Chronic (7) Tobacco abuse ICD Code: Z72.0 - Tobacco use Assessment and Plan 1. Sepsis: Source likely abdominal. Blood cultures are negative so far. Continue IV antibiotics. WBCs improving. Leukocytosis resolved. 2. Pancreatitis: Follow lipase. Clear liquid diet. CT shows acute pancreatitis with pseudocyst. Appreciate GI and general surgery recommendations. 3. Pancreatic mass: MRI report noted. Appreciate surgery, GI recommendations. 4. Abdominal pain, distention: NG tube removed. Heart healthy, soft diet. 5. S/P small bowel resection: Patient had not followed up as outpatient post- op. Whitwell removed in ER. Management per general surgery. 6. Hypokalemia: Supplement potassium. Monitor labs. 7. Tobacco abuse: Counselled. 8. DVT prophylaxis: [id number]. Avoid chemical prophylaxis secondary to coagulopathy, possible need for surgical intervention. 9. Hypomagnesemia: Supplement magnesium. Improving. 10. Anxiety: Lorazepam as needed. 11. Seizure disorder: Resume Keppra. Seizure precautions. 12. Lower extremity edema: Continue Lasix. Agustín Mora MD May 23, 2017 10:24
--- NOTE | 2017-05-23 11:34 | HHI.GIFU ---
Subjective Remarks Sitting up in chair with feet elevated. Continues to be tired. Tolerating heart healthy diet. Reports lower abdominal pain today, that is intermittent and mild. Denies N/V. Objective Vitals I&O Vital Signs Date Time Temp Pulse Resp B/P (MAP) Pulse Ox O2 Delivery O2 Flow Rate FiO2 05/23/17 08:06 103 05/23/17 08:00 99.2 100 16 125/72 (89) 95 05/23/17 06:43 98.4 70 18 137/64 (88) 98 05/23/17 04:02 102 05/23/17 00:47 97.9 68 18 121/82 (95) 97 05/23/17 00:02 103 05/22/17 21:17 98.1 113 18 113/70 (84) 96 05/22/17 20:02 121 05/22/17 16:15 109 05/22/17 16:00 99.4 99 18 112/79 (90) 98 05/22/17 12:18 112 05/22/17 12:00 100.1 97 16 113/81 (92) 97 I/O 05/22/17 05/22/17 05/22/17 05/23/17 05/23/17 05/23/17 07:00 15:00 23:00 07:00 15:00 23:00 Intake Total 2122 ml 340 ml 120 ml Output Total 400 ml 2300 ml Balance -400 ml -178 ml 340 ml 120 ml Intake Oral 840 ml 240 ml 120 ml IV Total 1282 ml 100 ml 0 ml Output Urine Total 400 ml 2300 ml # Voids 2 1 1 # Bowel Movements 0 0 1 Laboratory Laboratory Tests Test 05/23/17 06:38 Blood Urea Nitrogen 2 Creatinine 0.33 Random Glucose 112 Total Protein 5.9 Albumin 1.6 Calcium Level 7.7 Magnesium Level 1.5 Alkaline Phosphatase 400 Aspartate Amino Transf (AST/SGOT) 24 Alanine Aminotransferase (ALT/SGPT) 16 Total Bilirubin 0.5 Sodium Level 134 Potassium Level 3.4 Chloride Level 99 Carbon Dioxide Level 24.8 Anion Gap 10 Estimat Glomerular Filtration Rate 218 Lipase 462 Date/Time Source Procedure Growth Status 05/13/17 20:23 Blood Peripheral Aerobic Blood Culture - Final NO GROWTH IN 5 DAYS Complete 05/13/17 20:23 Blood Peripheral Anaerobic Blood Culture - Final NO GROWTH IN 5 DAYS Complete 05/18/17 05:00 Stool Stool Stool Occult Blood (JAYESH) - Final HEMOCCULT NEGATIVE Complete Imaging Last Impressions Abdomen X-Ray 05/18/17 0000 Signed Impressions: Service Date/Time: Thursday, May 18, 2017 11:28 - CONCLUSION: Ileus type pattern. Hepatomegaly. Tang Garcia Jr., MD Chest X-Ray 05/15/17 0000 Signed Impressions: Service Date/Time: Monday, May 15, 2017 10:23 - CONCLUSION: NG tube appears appropriate in position. Stable basilar airspace disease. Dorothy Zepeda MD Cholangiopancreatography MRI 05/14/17 0000 Signed Impressions: Service Date/Time: Sunday, May 14, 2017 09:13 - CONCLUSION: 1. There is definite evidence of pancreatitis with inflammatory changes and fluid in the upper abdomen. 2. There is a focal nonspecific low signal lesion in head of pancreas measuring 2.5 x 1.5 cm without abnormal enhancement. The distal common bile duct at this level is narrowed suggestive of a stricture. The common bile duct is dilated at 1.8 cm. A focal mass in the head of the pancreas would be a primary consideration. However, there is also diffuse inflammatory changes involving the pancreas as well as inflammatory changes in the upper abdomen indicating pancreatitis which I believe confuses the issue. When the inflammatory changes associated with pancreatitis have resolved, ERCP would be recommended for further evaluation of this area. Sandro London MD Abdomen/Pelvis CT 05/13/17 1317 Signed Impressions: Service Date/Time: Saturday, May 13, 2017 17:29 - CONCLUSION: 1. Cirrhosis. 2. Findings suggesting acute pancreatitis with large pseudocyst measuring 7.7 x 5.8 x 2.8 cm. 3. Low density mass involving the head of the pancreas. Measuring 2.1 x 1.8 x 1.7 cm. I'm concerned this relates to malignancy. There is clearly some mass effect on the pancreatic duct which is mildly dilated within the body and tail measuring 4 mm. Consider MRI to further evaluate. 4. Ileus type pattern. 5. A small focus of air and fluid directly adjacent to the sigmoid colon. I am unsure if this relates to a very large diverticulum or to a contained microperforation. 6. Right basilar atelectasis. Tang Garcia Jr., MD Physical Exam HEENT: Normocephalic; atraumatic; no jaundice. CHEST: CTA, diminished CARDIAC: RRR ABDOMEN: Mild distention. Mild TTP at lower abdomen and RUQ. Bowel sounds x 4. EXTREMITIES: No clubbing, cyanosis, 2+ pitting edema at bilateral LE SKIN: Normal; no rash; no jaundice. METEOROLOGY INSTRUCTOR: Alert and oriented. Assessment and Plan Plan ASSESSMENT: - Pancreatitis with large pseudocyst, pancreatic head mass. CT scan of the abdomen and pelvis with IV contrast (05/13/17) and this revealed cirrhosis, findings suggesting acute pancreatitis with large pseudocyst measuring 7.7 x 5.8 x 2.8 cm. Low density mass involving the head of the pancreas. Measuring 2.1 x 1.8 x 1.7 cm. I'm concerned this relates to malignancy. There is clearly some mass effect of the pancreatic duct which is mildly dilated within the body and spell measuring 4 mm. Consider MRI to further evaluate. Ileus type pattern. A small focus of air and fluid directly adjacent to the sigmoid colon. I am unsure if this relates to a very large I've reticulin or tic contained microperforation. Right basilar atelectasis. MRCP with and without contrast (05/14/17)----> there is definite evidence of pancreatitis with inflammatory changes and fluid in the upper abdomen. There is a focal nonspecific low signal lesion in the head of the pancreas measuring 2.5 x 1.5 cm without abnormal enhancement. The distal common bile duct at this level is narrowed suggestive of a stricture. The common bile duct is dilated at 1.8 cm. A focal mass in the head of the pancreas would be a primary consideration. However there is also diffuse inflammatory changes involving then pancreas as well as inflammatory changes in the abdomen indicating pancreatitis which I believe confuses the issue. When the inflammatory changes associated with pancreatitis have resolved, ERCP would be recommended for further evaluation of this area. CEA, Ca19-9 26.7. GS following. She has a large pseudocyst and pancreatic head mass, although it is unclear if this an inflammatory mass r/t pancreatitis vs. malignant mass at this time. D/W Dr. Child---> high risk for procedure, as her INR is high. Will plan for EUS once the fluid in abdomen has matured and coagulopathy improved. Possible ERCP pending EUS results. Will need repeat imaging. Lipase trending down . Cipro/Flagyl, IVF, PPI - Abdominal distention, n/v. Likely related to above. no more N/V KUB (05/18/17 )---> ileus type pattern. Hepatomegaly. - Leukocytosis. WBC 10.7 improved. Bcx no growth 5 day. Cipro/flagyl - Electrolyte abnormalities. Replacement per attending. - Anemia, no acute blood loss. HH slightly trending down. 7.2/21.8. Hemoccult negative. No bleeding reported - ETOH abuse. DT precautions per attending. - S/P recent hospitalization at [facility] for large complex pelvic abscess with concern for possible perforated Meckel's diverticulum. S/P exploration with washout and drainage of abscess with drain placement on (04/17/17) with Dr. Nichole. 05/22/17--Abdominal pain is improving. No N/V today. Tolerating diet. Lipase stable, 681. HH 7.3/21.3. WBC 10.4. 05/23/17--Patient states that her abdominal pain continues to improve. Denies N/ V. Tolerating heart healthy diet. Lipase trending down, 462. HH stable 7.3/21.3. WBC normal. PLAN: - CT Abdomen ordered today to evaluate pancreas and pseudocyst, await results - BRENDA - Cont. Protonix - Cont. Cipro/Flagyl - Monitor HH, transfuse as necessary - Monitor labs - Supportive care - Further recommendations to follow based on results of above - Possible EUS once fluid matures, possible ERCP pending EUS results Patient seen and examined by Dr. Gary and myself and this note is written on his behalf. Desi Duenas May 23, 2017 11:34
[2017-05-23] MEDS: MAGNESIUM OXIDE 400 MG TAB PO SCH (12:16)
[2017-05-23] MEDS: HYDROmorphone HCL PF 1 MG/ML VIAL IV PRN (15:12)
[2017-05-23] MEDS ORDERED: IOHEXOL 350 MG/ML 10 ML VIAL (for RAD DIAG) IVCONTRAST ONE (18:23)
--- NOTE | 2017-05-23 18:31 | RADRPT ---
EXAM DATE/TIME: 05/23/2017 18:08 [place] COMPARISON: CT ABDOMEN & PELVIS W CONTRAST, May 13, 2017, 17:29. INDICATIONS : Mid abdominal pain, possible pancreatitis. IV CONTRAST: 71 cc Omnipaque 350 (iohexol) IV ORAL CONTRAST: Prescribed oral contrast ingested. RADIATION DOSE: 12.71 CTDIvol (mGy) MEDICAL HISTORY : Renal calculi. SURGICAL HISTORY : Appendectomy. ENCOUNTER: Initial ACUITY: 1 day PAIN SCALE: 5/10 LOCATION: mid abdomen TECHNIQUE: Volumetric scanning of the abdomen and pelvis was performed. Using automated exposure control and ad justment of the mA and/or kV according to patient size, radiation dose was kept as low as reasonably achievable to obtain optimal diagnostic quality images. DICOM format image data is available electro nically for review and comparison. FINDINGS: LOWER LUNGS: There is a small right pleural effusion now noted with atelectasis in the lung bases. LIVER: The liver remains prominent and cirrhotic in appearance with no focal mass or ductal dilatation. Ther e is ascitic fluid surrounding the lateral margin of the liver. There is a tiny calcification in the dependent portion gallbladder which could indicate a small calcified gallstone. SPLEEN: Normal size without lesion. PANCREAS: The head and body the pancreas are indistinct. There is a large oval fluid collection now noted along the tail and body of the pancreas measuring up to 11.6 x 7.5 cm. This measures 11 Hounsfield units i n density. This has a thin surrounding rim of soft tissue area the previously noted ill-defined colle ction posterior inferior to the pancreas has increased in size now measures 13 x 3 cm in diameter com pared to 7.7 x 2.8 cm. This is of mixed low and higher density. KIDNEYS: Normal in size and shape. There is no mass, stone or hydronephrosis. ADRENAL GLANDS: Within normal limits. VASCULAR: There is no aortic aneurysm. BOWEL/MESENTERY: A moderate amount of ascitic fluid is present in the pelvis. Fluid is noted in the right paracolic gu tter. There is a nonobstructive bowel gas pattern with multiple loops of nondilated air-containing sm all bowel several small air-fluid levels. Contrast is noted throughout the colon. There is no free ai r. There is a fluid collection along the posterior stomach measuring approximately 3.7 x 3 cm. ABDOMINAL WALL: Within normal limits. RETROPERITONEUM: There is no lymphadenopathy. BLADDER: No wall thickening or mass. REPRODUCTIVE: Within normal limits. INGUINAL: There is no lymphadenopathy or hernia. MUSCULOSKELETAL: Within normal limits for patient age. CONCLUSION: 1. Multiple pseudocysts are now identified as described above. 2. The head and body of the pancreas remain indistinct. 3. Small to moderate amount of ascitic fluid. 4. The liver remains cirrhotic in appearance. 5. Small left pleural effusion with atelectasis in the lung bases. Alfredo Melendez MD on May 23, 2017 at 18:19 Board Certified Radiologist. This report was verified electronically.
[2017-05-24] VITALS (8 sets, daily range): BP systolic 100–135; BP diastolic 63–82; PULSE 70–112; RESP 17–18; TEMP 98.1–99.8; O2SAT 92–98
[2017-05-24] MEDS: metroNIDAZOLE 500 MG INJ 100 ML IV SCH ×3 (04:28→22:09)
[2017-05-24] MEDS: LORazepam 0.5 MG TAB PO PRN ×3 (07:00→22:08)
[2017-05-24 08:01] LABS: AUTOMATED NEUTROPHIL # 6.6 TH/MM3 (1.8-7.7); BASOPHIL # 0.1 TH/MM3 (0-0.2); BASOPHIL % 0.7 % (0.0-2.0); EOSINOPHIL # 0.4 TH/MM3 (0-0.4); HEMATOCRIT 23.4 % (35.0-46.0); HEMO FLAGS DIFF FINAL; LYMPH % 15.2 % (9.0-44.0); LYMPHOCYTE # 1.4 TH/MM3 (1.0-4.8); MEAN CORPUSCULAR HEMOGLOBIN 30.7 PG (27.0-34.0); MEAN CORPUSCULAR HGB CONC 33.4 % (32.0-36.0); MONO % 11.1 % (0.0-8.0); PLATELET COUNT 486 TH/MM3 (150-450); RED BLOOD COUNT 2.54 MIL/MM3 (4.00-5.30); WHITE BLOOD COUNT 9.6 TH/MM3 (4.0-11.0)
[2017-05-24 08:21] LABS: BICARBONATE 27.6 MEQ/L (21.0-32.0); MAGNESIUM 1.4 MG/DL (1.5-2.5); POTASSIUM 3.3 MEQ/L (3.5-5.1)
[2017-05-24] MEDS: SODIUM CHLORIDE 0.9% FLUSH 10 ML FLUSH IV FLUSH SCH ×2 (09:08→20:44)
[2017-05-24] MEDS: MAGNESIUM OXIDE 400 MG TAB PO SCH (09:08)
[2017-05-24] MEDS: POTASSIUM CHLORIDE 20 MEQ CONTROLLED RELEASE TAB PO SCH ×2 (09:08→20:44)
[2017-05-24] MEDS: levETIRAcetam 500 MG TAB PO SCH ×2 (09:08→20:44)
[2017-05-24] MEDS: THIAMINE HCL 100 MG TAB PO SCH (09:08)
[2017-05-24] MEDS: FUROSEMIDE 40 MG TAB PO SCH (09:08)
[2017-05-24] MEDS: PANTOPRAZOLE SODIUM 40 MG VIAL IV PUSH SCH ×2 (09:08→20:43)
[2017-05-24] MEDS: CIPROFLOXACIN 400 MG PREMIX 200 ML IV SCH ×2 (09:27→23:19)
--- NOTE | 2017-05-24 11:32 | HHI.PR ---
Subjective Subjective Notes Tolerating smaller meals better +BM No issues overnight Objective Vitals/I&O Vital Signs Date Time Temp Pulse Resp B/P (MAP) Pulse Ox O2 Delivery O2 Flow Rate FiO2 05/24/17 08:00 98.5 100 18 112/76 (88) 96 Labs Laboratory Tests Test 05/24/17 06:57 White Blood Count 9.6 Red Blood Count 2.54 Hemoglobin 7.8 Hematocrit 23.4 Mean Corpuscular Volume 92.0 Mean Corpuscular Hemoglobin 30.7 Mean Corpuscular Hemoglobin Concent 33.4 Red Cell Distribution Width 15.0 Platelet Count 486 Mean Platelet Volume 8.7 Neutrophils (%) (Auto) 69.0 Lymphocytes (%) (Auto) 15.2 Monocytes (%) (Auto) 11.1 Eosinophils (%) (Auto) 4.0 Basophils (%) (Auto) 0.7 Neutrophils # (Auto) 6.6 Lymphocytes # (Auto) 1.4 Monocytes # (Auto) 1.1 Eosinophils # (Auto) 0.4 Basophils # (Auto) 0.1 CBC Comment DIFF FINAL Differential Comment Blood Urea Nitrogen 3 Creatinine 0.31 Random Glucose 99 Calcium Level 7.9 Magnesium Level 1.4 Sodium Level 131 Potassium Level 3.3 Chloride Level 95 Carbon Dioxide Level 27.6 Anion Gap 8 Estimat Glomerular Filtration Rate 234 Date/Time Source Procedure Growth Status 05/13/17 20:23 Blood Peripheral Aerobic Blood Culture - Final NO GROWTH IN 5 DAYS Complete 05/13/17 20:23 Blood Peripheral Anaerobic Blood Culture - Final NO GROWTH IN 5 DAYS Complete 05/18/17 05:00 Stool Stool Stool Occult Blood (JAYESH) - Final HEMOCCULT NEGATIVE Complete Cardiovascular: Regular Lungs: Clear Abdomen: Other (distended; well healed midline incision ) Extremities: No edema A/P Assessment and Plan 42 year old female s/p ex lap at OSH; now with pancreatitis; ETOH abuse; pancreatic pseudocyst -Heart healthy diet ---counseled on smaller more frequent meals -Continue to trend lipase -OOB and mobilize -No operative plans at this time Attending Statement patient seen and examined trend lipase reg low fat diet Attestation The exam, history, and the medical decision-making described in the above note were completed with the assistance of the mid-level provider. I reviewed and agree with the findings presented. I attest that I had a [id number] encounter with the patient on the same day, and personally performed and documented my assessment and findings in the medical record. Cady Ron May 24, 2017 11:32 Jose Nichole MD May 28, 2017 18:37
--- NOTE | 2017-05-24 13:48 | HHI.PR ---
Subjective Remarks Patient reports that she is feeling better. Still have some abdominal pain but has significantly improved compared to prior. She would like to go home soon. She is tolerating some of her diet. No nausea or vomiting. Objective Vitals Vital Signs Date Time Temp Pulse Resp B/P (MAP) Pulse Ox O2 Delivery O2 Flow Rate FiO2 05/24/17 12:33 98.9 112 18 100/66 (77) 98 05/24/17 08:00 98.5 100 18 112/76 (88) 96 05/24/17 04:55 99.8 95 18 107/72 (84) 96 05/24/17 04:00 90 05/24/17 04:00 98.1 78 17 135/63 (87) 92 05/24/17 00:00 99.5 103 17 110/82 (91) 97 05/24/17 00:00 109 05/23/17 21:15 127 05/23/17 20:00 99.9 110 17 108/79 (89) 97 05/23/17 16:00 107 05/23/17 16:00 98.6 99 16 110/61 (77) 98 05/23/17 15:12 99 114/60 (78) I/O 05/23/17 05/23/17 05/23/17 05/24/17 05/24/17 05/24/17 07:00 15:00 23:00 07:00 15:00 23:00 Intake Total 120 ml 780 ml 100 ml Output Total 550 ml Balance 120 ml 230 ml 100 ml Intake Oral 120 ml 480 ml IV Total 0 ml 300 ml 100 ml Output Urine Total 550 ml # Voids 1 # Bowel Movements 1 Result Diagram: 05/24/17 0657 05/24/17 0657 Imaging Last Impressions Abdomen/Pelvis CT 05/23/17 0000 Signed Impressions: Service Date/Time: Tuesday, May 23, 2017 18:08 - CONCLUSION: 1. Multiple pseudocysts are now identified as described above. 2. The head and body of the pancreas remain indistinct. 3. Small to moderate amount of ascitic fluid. 4. The liver remains cirrhotic in appearance. 5. Small left pleural effusion with atelectasis in the lung bases. Alfredo Melendez MD Abdomen X-Ray 05/18/17 0000 Signed Impressions: Service Date/Time: Thursday, May 18, 2017 11:28 - CONCLUSION: Ileus type pattern. Hepatomegaly. Tang Garcia Jr., MD Chest X-Ray 05/15/17 0000 Signed Impressions: Service Date/Time: Monday, May 15, 2017 10:23 - CONCLUSION: NG tube appears appropriate in position. Stable basilar airspace disease. Dorothy Zepeda MD Cholangiopancreatography MRI 05/14/17 0000 Signed Impressions: Service Date/Time: Sunday, May 14, 2017 09:13 - CONCLUSION: 1. There is definite evidence of pancreatitis with inflammatory changes and fluid in the upper abdomen. 2. There is a focal nonspecific low signal lesion in head of pancreas measuring 2.5 x 1.5 cm without abnormal enhancement. The distal common bile duct at this level is narrowed suggestive of a stricture. The common bile duct is dilated at 1.8 cm. A focal mass in the head of the pancreas would be a primary consideration. However, there is also diffuse inflammatory changes involving the pancreas as well as inflammatory changes in the upper abdomen indicating pancreatitis which I believe confuses the issue. When the inflammatory changes associated with pancreatitis have resolved, ERCP would be recommended for further evaluation of this area. Sandro London MD Objective Remarks GENERAL: Chronically ill-appearing female. Patient appearing older than stated age. CARDIOVASCULAR: Normal rate and regular rhythm without murmurs, gallops, or rubs. RESPIRATORY: Good respiratory efforts. Breath sounds equal and clear to auscultation bilaterally. GASTROINTESTINAL: Abdomen mildly distended, soft, normal active bowel sounds. MUSCULOSKELETAL: Extremities without cyanosis, or edema. NEURO: Alert & Oriented x4 to person, place, time, situation. Moves all ext x4 PSYCH: Appropriate mood and affect. Procedures None A/P Problem List: (1) Sepsis ICD Code: A41.9 - Sepsis, unspecified organism (2) Pancreatitis ICD Code: K85.90 - Acute pancreatitis without necrosis or infection, unspecified (3) Pancreatic mass ICD Code: K86.9 - Disease of pancreas, unspecified (4) S/P small bowel resection ICD Code: Z90.49 - Acquired absence of other specified parts of digestive tract (5) Hypokalemia ICD Code: E87.6 - Hypokalemia Status: Acute (6) Alcohol abuse ICD Code: F10.10 - Alcohol abuse Status: Chronic (7) Tobacco abuse ICD Code: Z72.0 - Tobacco use Assessment and Plan 42-year-old female with recent exploratory laparotomy at an outside hospital. She presented with pancreatitis, pancreatic pseudocyst, sepsis, EtOH abuse. Sepsis: Source likely abdominal. Blood cultures are negative so far. Continue IV antibiotics. WBCs improving. Leukocytosis resolved. - Transition to oral Cipro and Flagyl. Pancreatitis: Follow lipase. Soft diet. CT shows acute pancreatitis with pseudocyst. Appreciate GI and general surgery recommendations. - No surgical procedures planned at this time. - GI considering ERCP and EUS. Pancreatic mass: MRI report noted. Appreciate surgery, GI recommendations. S/P small bowel resection: Patient had not followed up as outpatient post-op. [place] removed in ER. Management per general surgery. Hypokalemia: Supplement potassium. Monitor labs. Tobacco abuse: Counselled. Anxiety: Lorazepam as needed. Seizure disorder: Resume Keppra. Seizure precautions. DVT prophylaxis: SCDSKYLER mccarty. Avoid chemical prophylaxis secondary to coagulopathy. Gunnar Varner MD May 24, 2017 13:48
[2017-05-24] MEDS ORDERED: POTASSIUM CHLORIDE 10 MEQ CONTROLLED RELEASE TAB PO ONE (17:30)
[2017-05-24] MEDS: MAGNESIUM SULFATE 1 GM PREMIX 100 ML IV SCH ×2 (18:03→20:45)
--- NOTE | 2017-05-24 22:34 | HHI.GIFU ---
Subjective Remarks Pt reports tolerating food. She fills up easily but can eat a substantial amount. She wants to go home. Her CT scan reviewed, shows a large pseudocyst that seems to have a thick wall. Two other pseudocysts present as well. She may need to stop eatinig reg food. The pseudocyst seems to be enlarging fairly quickly. Objective Vitals I&O Vital Signs Date Time Temp Pulse Resp B/P (MAP) Pulse Ox O2 Delivery O2 Flow Rate FiO2 05/24/17 20:00 99.3 95 18 113/78 (90) 98 05/24/17 16:06 98.1 70 17 130/66 (87) 96 05/24/17 15:59 100 05/24/17 12:33 98.9 112 18 100/66 (77) 98 05/24/17 08:00 98.5 100 18 112/76 (88) 96 05/24/17 04:55 99.8 95 18 107/72 (84) 96 05/24/17 04:00 90 05/24/17 04:00 98.1 78 17 135/63 (87) 92 05/24/17 00:00 99.5 103 17 110/82 (91) 97 05/24/17 00:00 109 I/O 05/23/17 05/23/17 05/23/17 05/24/17 05/24/17 05/24/17 07:00 15:00 23:00 07:00 15:00 23:00 Intake Total 120 ml 780 ml 100 ml 1200 ml Output Total 550 ml Balance 120 ml 230 ml 100 ml 1200 ml Intake Oral 120 ml 480 ml 900 ml IV Total 0 ml 300 ml 100 ml 300 ml Output Urine Total 550 ml # Voids 1 2 # Bowel Movements 1 Laboratory Laboratory Tests Test 05/24/17 06:57 White Blood Count 9.6 Red Blood Count 2.54 Hemoglobin 7.8 Hematocrit 23.4 Mean Corpuscular Volume 92.0 Mean Corpuscular Hemoglobin 30.7 Mean Corpuscular Hemoglobin Concent 33.4 Red Cell Distribution Width 15.0 Platelet Count 486 Mean Platelet Volume 8.7 Neutrophils (%) (Auto) 69.0 Lymphocytes (%) (Auto) 15.2 Monocytes (%) (Auto) 11.1 Eosinophils (%) (Auto) 4.0 Basophils (%) (Auto) 0.7 Neutrophils # (Auto) 6.6 Lymphocytes # (Auto) 1.4 Monocytes # (Auto) 1.1 Eosinophils # (Auto) 0.4 Basophils # (Auto) 0.1 CBC Comment DIFF FINAL Differential Comment Blood Urea Nitrogen 3 Creatinine 0.31 Random Glucose 99 Calcium Level 7.9 Magnesium Level 1.4 Sodium Level 131 Potassium Level 3.3 Chloride Level 95 Carbon Dioxide Level 27.6 Anion Gap 8 Estimat Glomerular Filtration Rate 234 Date/Time Source Procedure Growth Status 05/13/17 20:23 Blood Peripheral Aerobic Blood Culture - Final NO GROWTH IN 5 DAYS Complete 05/13/17 20:23 Blood Peripheral Anaerobic Blood Culture - Final NO GROWTH IN 5 DAYS Complete 05/18/17 05:00 Stool Stool Stool Occult Blood (JAYESH) - Final HEMOCCULT NEGATIVE Complete Physical Exam HEENT: Normocephalic; atraumatic; no jaundice. CHEST: CTA, diminished CARDIAC: RRR ABDOMEN: Mild distention of upper abdomen. Mild TTP at lower abdomen and RUQ. Bowel sounds x 4. EXTREMITIES: No clubbing, cyanosis, 2+ pitting edema at bilateral LE SKIN: Normal; no rash; no jaundice. SKILLS INSTRUCTOR: Alert and oriented. Assessment and Plan Plan ASSESSMENT: - Pancreatitis with large pseudocyst, pancreatic head mass. CT scan of the abdomen and pelvis with IV contrast (05/13/17) and this revealed cirrhosis, findings suggesting acute pancreatitis with large pseudocyst measuring 7.7 x 5.8 x 2.8 cm. Low density mass involving the head of the pancreas. Measuring 2.1 x 1.8 x 1.7 cm. I'm concerned this relates to malignancy. There is clearly some mass effect of the pancreatic duct which is mildly dilated within the body and spell measuring 4 mm. Consider MRI to further evaluate. Ileus type pattern. A small focus of air and fluid directly adjacent to the sigmoid colon. I am unsure if this relates to a very large I've reticulin or tic contained microperforation. Right basilar atelectasis. MRCP with and without contrast (05/14/17)----> there is definite evidence of pancreatitis with inflammatory changes and fluid in the upper abdomen. There is a focal nonspecific low signal lesion in the head of the pancreas measuring 2.5 x 1.5 cm without abnormal enhancement. The distal common bile duct at this level is narrowed suggestive of a stricture. The common bile duct is dilated at 1.8 cm. A focal mass in the head of the pancreas would be a primary consideration. However there is also diffuse inflammatory changes involving then pancreas as well as inflammatory changes in the abdomen indicating pancreatitis which I believe confuses the issue. When the inflammatory changes associated with pancreatitis have resolved, ERCP would be recommended for further evaluation of this area. CEA, Ca19-9 26.7. GS following. She has a large pseudocyst and pancreatic head mass, although it is unclear if this an inflammatory mass r/t pancreatitis vs. malignant mass at this time. D/W Dr. Child---> high risk for procedure, as her INR is high. Will plan for EUS once the fluid in abdomen has matured and coagulopathy improved. Possible ERCP pending EUS results. Will need repeat imaging. Lipase trending down . Cipro/Flagyl, IVF, PPI - Abdominal distention, n/v. Likely related to above. no more N/V KUB (05/18/17 )---> ileus type pattern. Hepatomegaly. - Leukocytosis. WBC 10.7 improved. Bcx no growth 5 day. Cipro/flagyl - Electrolyte abnormalities. Replacement per attending. - Anemia, no acute blood loss. HH slightly trending down. 7.2/21.8. Hemoccult negative. No bleeding reported - ETOH abuse. DT precautions per attending. - S/P recent hospitalization at [facility] for large complex pelvic abscess with concern for possible perforated Meckel's diverticulum. S/P exploration with washout and drainage of abscess with drain placement on (04/17/17) with Dr. Nichole. 05/22/17--Abdominal pain is improving. No N/V today. Tolerating diet. Lipase stable, 681. HH 7.3/21.3. WBC 10.4. 05/23/17--Patient states that her abdominal pain continues to improve. Denies N/ V. Tolerating heart healthy diet. Lipase trending down, 462. HH stable 7.3/21.3. WBC normal. Repeat CT scan shows significantly larger pseudocyst. Pressing on the stomach. also two more pseudocysts. PLAN: - CT Abdomen ordered today to evaluate pancreas and pseudocyst, await results - BRENDA - Cont. Protonix - Cont. Cipro/Flagyl - Monitor HH, transfuse as necessary - Monitor labs - Supportive care - Further recommendations to follow based on results of above - Possible EUS once fluid matures, possible ERCP pending EUS results - Will confer with Dr Child regarding management. Pascual Gary MD May 24, 2017 22:34
[2017-05-25] VITALS (10 sets, daily range): BP systolic 101–120; BP diastolic 68–89; PULSE 86–107; RESP 16–20; TEMP 97.1–99.6; O2SAT 95–100
[2017-05-25] MEDS: metroNIDAZOLE 500 MG INJ 100 ML IV SCH ×3 (04:38→20:19)
[2017-05-25] MEDS: LORazepam 0.5 MG TAB PO PRN ×3 (06:37→21:43)
--- NOTE | 2017-05-25 08:35 | HHI.PR ---
Subjective Remarks Patient reports she is feeling better. Abdominal pain has improved. No nausea or vomiting. However CT of the abdomen shows multiple pancreatic pseudocysts. Objective Vitals Vital Signs Date Time Temp Pulse Resp B/P (MAP) Pulse Ox O2 Delivery O2 Flow Rate FiO2 05/25/17 04:00 98.5 95 18 110/68 (82) 98 05/25/17 04:00 90 05/25/17 00:00 99.1 96 18 104/72 (83) 98 05/25/17 00:00 107 05/24/17 20:00 102 05/24/17 20:00 99.3 95 18 113/78 (90) 98 05/24/17 16:06 98.1 70 17 130/66 (87) 96 05/24/17 15:59 100 05/24/17 12:33 98.9 112 18 100/66 (77) 98 I/O 05/24/17 05/24/17 05/24/17 05/25/17 05/25/17 05/25/17 06:59 14:59 22:59 06:59 14:59 22:59 Intake Total 1200 ml Output Total 500 ml Balance 1200 ml -500 ml Intake Oral 900 ml IV Total 300 ml Output Urine Total 500 ml # Voids 2 1 Result Diagram: 05/24/17 0657 05/24/17 06 Objective Remarks GENERAL: Chronically ill-appearing female. Patient appearing older than stated age. CARDIOVASCULAR: Normal rate and regular rhythm without murmurs, gallops, or rubs. RESPIRATORY: Good respiratory efforts. Breath sounds equal and clear to auscultation bilaterally. GASTROINTESTINAL: Abdomen mildly distended, soft, normal active bowel sounds. MUSCULOSKELETAL: Extremities without cyanosis, or edema. NEURO: Alert & Oriented x4 to person, place, time, situation. Moves all ext x4 PSYCH: Appropriate mood and affect. Procedures None A/P Problem List: (1) Sepsis ICD Code: A41.9 - Sepsis, unspecified organism (2) Pancreatitis ICD Code: K85.90 - Acute pancreatitis without necrosis or infection, unspecified (3) Pancreatic mass ICD Code: K86.9 - Disease of pancreas, unspecified (4) S/P small bowel resection ICD Code: Z90.49 - Acquired absence of other specified parts of digestive tract (5) Hypokalemia ICD Code: E87.6 - Hypokalemia Status: Acute (6) Alcohol abuse ICD Code: F10.10 - Alcohol abuse Status: Chronic (7) Tobacco abuse ICD Code: Z72.0 - Tobacco use Assessment and Plan 42-year-old female with recent exploratory laparotomy at an outside hospital. She presented with pancreatitis, pancreatic pseudocyst, sepsis, EtOH abuse. Sepsis: Source likely abdominal. Blood cultures are negative so far. Continue IV antibiotics. WBCs improving. Leukocytosis resolved. -Continue Cipro and Flagyl. Pancreatitis: Follow lipase. Soft diet. CT shows acute pancreatitis with pseudocyst. Appreciate GI and general surgery recommendations. - No surgical procedures planned at this time. - GI considering ERCP and EUS. Pancreatic mass: MRI report noted. Repeat abdominal CT revealed multiple pseudocyst. GI considering ERCP and EUS S/P small bowel resection: Patient had not followed up as outpatient post-op. Sudha removed in ER. Management per general surgery. Seems to be progressing well from that standpoint. Hypokalemia: Supplement potassium. Monitor labs. Tobacco abuse: Counselled. Anxiety: Lorazepam as needed. Seizure disorder: Resume Keppra. Seizure precautions. DVT prophylaxis: SKYLER Mcnulty. Avoid chemical prophylaxis secondary to coagulopathy. Gunnar Varner MD May 25, 2017 08:35
[2017-05-25] MEDS: THIAMINE HCL 100 MG TAB PO SCH (09:57)
[2017-05-25] MEDS: PANTOPRAZOLE SODIUM 40 MG VIAL IV PUSH SCH ×2 (09:57→20:21)
[2017-05-25] MEDS: CIPROFLOXACIN 400 MG PREMIX 200 ML IV SCH ×2 (09:57→21:43)
[2017-05-25] MEDS: POTASSIUM CHLORIDE 20 MEQ CONTROLLED RELEASE TAB PO SCH ×2 (09:58→20:20)
[2017-05-25] MEDS: levETIRAcetam 500 MG TAB PO SCH ×2 (09:58→20:20)
[2017-05-25] MEDS: SODIUM CHLORIDE 0.9% FLUSH 10 ML FLUSH IV FLUSH SCH ×2 (09:58→20:21)
[2017-05-25] MEDS: MAGNESIUM OXIDE 400 MG TAB PO SCH (09:58)
[2017-05-25] MEDS: FUROSEMIDE 40 MG TAB PO SCH (09:58)
[2017-05-25 11:05] LABS: MEAN CELL VOLUME 92.1 FL (80.0-100.0); MEAN CORPUSCULAR HEMOGLOBIN 29.4 PG (27.0-34.0); MEAN CORPUSCULAR HGB CONC 31.9 % (32.0-36.0); PLATELET COUNT 522 TH/MM3 (150-450); REVIEW FLAG FINAL; WHITE BLOOD COUNT 7.1 TH/MM3 (4.0-11.0)
[2017-05-25 11:32] LABS: BICARBONATE 26.7 MEQ/L (21.0-32.0); POTASSIUM 3.5 MEQ/L (3.5-5.1)
[2017-05-25] MEDS: ACETAMINOPHEN 325 MG TAB PO PRN (12:57)
--- NOTE | 2017-05-25 16:46 | HHI.GIFU ---
Subjective Remarks Pt resting in bed. Says her pain is much better than what it was. Refuses dobhoff. Objective Vitals I&O Vital Signs Date Time Temp Pulse Resp B/P (MAP) Pulse Ox O2 Delivery O2 Flow Rate FiO2 05/25/17 16:12 90 05/25/17 15:59 97.1 93 20 101/69 (80) 96 05/25/17 14:51 106/75 (85) 05/25/17 11:28 99.0 86 16 120/86 (97) 100 05/25/17 08:00 86 05/25/17 07:30 98.1 94 20 112/81 (91) 95 05/25/17 04:00 98.5 95 18 110/68 (82) 98 05/25/17 04:00 90 05/25/17 00:00 99.1 96 18 104/72 (83) 98 05/25/17 00:00 107 05/24/17 20:00 102 05/24/17 20:00 99.3 95 18 113/78 (90) 98 I/O 05/24/17 05/24/17 05/24/17 05/25/17 05/25/17 05/25/17 07:00 15:00 23:00 07:00 15:00 23:00 Intake Total 1200 ml 300 ml Output Total 500 ml Balance 1200 ml -500 ml 300 ml Intake Oral 900 ml IV Total 300 ml 300 ml Output Urine Total 500 ml # Voids 2 1 Laboratory Laboratory Tests Test 05/25/17 10:29 White Blood Count 7.1 Red Blood Count 2.50 Hemoglobin 7.3 Hematocrit 23.0 Mean Corpuscular Volume 92.1 Mean Corpuscular Hemoglobin 29.4 Mean Corpuscular Hemoglobin Concent 31.9 Red Cell Distribution Width 15.0 Platelet Count 522 Mean Platelet Volume 8.4 Blood Urea Nitrogen 2 Creatinine 0.38 Random Glucose 129 Calcium Level 7.5 Sodium Level 134 Potassium Level 3.5 Chloride Level 98 Carbon Dioxide Level 26.7 Anion Gap 9 Estimat Glomerular Filtration Rate 185 Date/Time Source Procedure Growth Status 05/13/17 20:23 Blood Peripheral Aerobic Blood Culture - Final NO GROWTH IN 5 DAYS Complete 05/13/17 20:23 Blood Peripheral Anaerobic Blood Culture - Final NO GROWTH IN 5 DAYS Complete 05/18/17 05:00 Stool Stool Stool Occult Blood (JAYESH) - Final HEMOCCULT NEGATIVE Complete Imaging Last Impressions Abdomen/Pelvis CT 05/23/17 0000 Signed Impressions: Service Date/Time: Tuesday, May 23, 2017 18:08 - CONCLUSION: 1. Multiple pseudocysts are now identified as described above. 2. The head and body of the pancreas remain indistinct. 3. Small to moderate amount of ascitic fluid. 4. The liver remains cirrhotic in appearance. 5. Small left pleural effusion with atelectasis in the lung bases. Alfredo Melendez MD Abdomen X-Ray 05/18/17 0000 Signed Impressions: Service Date/Time: Thursday, May 18, 2017 11:28 - CONCLUSION: Ileus type pattern. Hepatomegaly. Tang Garcia Jr., MD Chest X-Ray 05/15/17 0000 Signed Impressions: Service Date/Time: Monday, May 15, 2017 10:23 - CONCLUSION: NG tube appears appropriate in position. Stable basilar airspace disease. Dorothy Zepeda MD Cholangiopancreatography MRI 05/14/17 0000 Signed Impressions: Service Date/Time: Sunday, May 14, 2017 09:13 - CONCLUSION: 1. There is definite evidence of pancreatitis with inflammatory changes and fluid in the upper abdomen. 2. There is a focal nonspecific low signal lesion in head of pancreas measuring 2.5 x 1.5 cm without abnormal enhancement. The distal common bile duct at this level is narrowed suggestive of a stricture. The common bile duct is dilated at 1.8 cm. A focal mass in the head of the pancreas would be a primary consideration. However, there is also diffuse inflammatory changes involving the pancreas as well as inflammatory changes in the upper abdomen indicating pancreatitis which I believe confuses the issue. When the inflammatory changes associated with pancreatitis have resolved, ERCP would be recommended for further evaluation of this area. Sandro London MD Physical Exam HEENT: Normocephalic; atraumatic; no jaundice. CHEST: CTA, diminished CARDIAC: RRR ABDOMEN: Mild distention of upper abdomen. Mild TTP at lower abdomen and RUQ. Bowel sounds x 4. EXTREMITIES: No clubbing, cyanosis, 2+ pitting edema at bilateral LE SKIN: Normal; no rash; no jaundice. ORGAN INSTALLER: Alert and oriented. Assessment and Plan Plan ASSESSMENT: - Pancreatitis with large pseudocyst, pancreatic head mass. CT scan of the abdomen and pelvis with IV contrast (05/13/17) and this revealed cirrhosis, findings suggesting acute pancreatitis with large pseudocyst measuring 7.7 x 5.8 x 2.8 cm. Low density mass involving the head of the pancreas. Measuring 2.1 x 1.8 x 1.7 cm. I'm concerned this relates to malignancy. There is clearly some mass effect of the pancreatic duct which is mildly dilated within the body and spell measuring 4 mm. Consider MRI to further evaluate. Ileus type pattern. A small focus of air and fluid directly adjacent to the sigmoid colon. I am unsure if this relates to a very large I've reticulin or tic contained microperforation. Right basilar atelectasis. MRCP with and without contrast (05/14/17)----> there is definite evidence of pancreatitis with inflammatory changes and fluid in the upper abdomen. There is a focal nonspecific low signal lesion in the head of the pancreas measuring 2.5 x 1.5 cm without abnormal enhancement. The distal common bile duct at this level is narrowed suggestive of a stricture. The common bile duct is dilated at 1.8 cm. A focal mass in the head of the pancreas would be a primary consideration. However there is also diffuse inflammatory changes involving then pancreas as well as inflammatory changes in the abdomen indicating pancreatitis which I believe confuses the issue. When the inflammatory changes associated with pancreatitis have resolved, ERCP would be recommended for further evaluation of this area. CEA, Ca19-9 26.7. GS following. She has a large pseudocyst and pancreatic head mass, although it is unclear if this an inflammatory mass r/t pancreatitis vs. malignant mass at this time. D/W Dr. Child---> high risk for procedure, as her INR is high. Will plan for EUS once the fluid in abdomen has matured and coagulopathy improved. Possible ERCP pending EUS results. Lipase trending down . Cipro/Flagyl, IVF, PPI CT abd 05/23 shows multiple pseudocysts. concern for stimulation of more cysts from PO intake, pt refused dobhoff. - Abdominal distention, n/v. Likely related to above. no more N/V KUB (05/18/17 )---> ileus type pattern. Hepatomegaly. - Leukocytosis. WBC 10.7 improved. Bcx no growth 5 day. Cipro/flagyl - Electrolyte abnormalities. Replacement per attending. - Anemia, no acute blood loss. HH slightly trending sharmila. Hemoccult negative. No bleeding reported - ETOH abuse. DT precautions per attending. - S/P recent hospitalization at [facility] for large complex pelvic abscess with concern for possible perforated Meckel's diverticulum. S/P exploration with washout and drainage of abscess with drain placement on (04/17/17) with Dr. Nichole. PLAN: - nutrition consult for TPN, refuses dobhoff - Cont. Protonix - Cont. Cipro/Flagyl - Monitor HH, transfuse as necessary - Monitor labs - Supportive care - Further recommendations to follow based on results of above - Possible EUS once fluid matures, possible ERCP pending EUS results This pt seen by myself and Dr Gary and this note is written on his behalf Camryn Marin May 25, 2017 16:46
[2017-05-26] VITALS (10 sets, daily range): BP systolic 108–138; BP diastolic 72–83; PULSE 86–114; RESP 17–20; TEMP 97.7–98.7; O2SAT 95–96
[2017-05-26] MEDS: metroNIDAZOLE 500 MG INJ 100 ML IV SCH ×2 (04:26→11:29)
[2017-05-26] MEDS: LORazepam 0.5 MG TAB PO PRN ×2 (04:26→11:01)
[2017-05-26] MEDS: SODIUM CHLORIDE 0.9% FLUSH 10 ML FLUSH IV FLUSH SCH ×2 (09:01→21:30)
[2017-05-26] MEDS: CIPROFLOXACIN 400 MG PREMIX 200 ML IV SCH (09:01)
[2017-05-26] MEDS: THIAMINE HCL 100 MG TAB PO SCH (09:01)
[2017-05-26] MEDS: POTASSIUM CHLORIDE 20 MEQ CONTROLLED RELEASE TAB PO SCH ×2 (09:02→21:21)
[2017-05-26] MEDS: MAGNESIUM OXIDE 400 MG TAB PO SCH (09:02)
[2017-05-26] MEDS: FUROSEMIDE 40 MG TAB PO SCH (09:02)
[2017-05-26] MEDS: PANTOPRAZOLE SODIUM 40 MG VIAL IV PUSH SCH ×2 (09:02→21:22)
[2017-05-26] MEDS: levETIRAcetam 500 MG TAB PO SCH ×2 (09:02→21:21)
[2017-05-26 09:28] LABS: HEMATOCRIT 21.1 % (35.0-46.0); MEAN CELL VOLUME 91.6 FL (80.0-100.0); MEAN CORPUSCULAR HEMOGLOBIN 30.7 PG (27.0-34.0); MEAN CORPUSCULAR HGB CONC 33.5 % (32.0-36.0); PLATELET COUNT 516 TH/MM3 (150-450); RED CELL DISTRIBUTION WIDTH 15.4 % (11.6-17.2); REVIEW FLAG FINAL; WHITE BLOOD COUNT 7.4 TH/MM3 (4.0-11.0)
[2017-05-26 09:51] LABS: MAGNESIUM 1.5 MG/DL (1.5-2.5); POTASSIUM 3.3 MEQ/L (3.5-5.1)
--- NOTE | 2017-05-26 13:10 | HHI.PR ---
Subjective Remarks Patient reports she is feeling better. She wants to go home. She is tolerating a clear liquid diet. Objective Vitals Vital Signs Date Time Temp Pulse Resp B/P (MAP) Pulse Ox O2 Delivery O2 Flow Rate FiO2 05/26/17 11:30 98.4 93 20 109/74 (86) 96 05/26/17 07:50 97.7 86 20 109/72 (84) 96 05/26/17 07:30 97.7 86 20 109/72 (84) 96 05/26/17 04:00 98.7 87 17 114/73 (87) 96 05/26/17 04:00 114 05/26/17 00:00 98.6 99 17 108/81 (90) 96 05/26/17 00:00 112 05/25/17 20:00 99.6 102 17 119/79 (92) 98 05/25/17 20:00 105 05/25/17 18:24 98 118/89 (99) 05/25/17 16:12 90 05/25/17 15:59 97.1 93 20 101/69 (80) 96 05/25/17 14:51 106/75 (85) I/O 05/25/17 05/25/17 05/25/17 05/26/17 05/26/17 05/26/17 07:00 15:00 23:00 07:00 15:00 23:00 Intake Total 881 ml Output Total 500 ml Balance -500 ml 881 ml Intake Oral 581 ml IV Total 300 ml Output Urine Total 500 ml # Voids 1 10 1 # Bowel Movements 2 Result Diagram: 05/26/1781905/26/17 0820 Objective Remarks GENERAL: Chronically ill-appearing female. Patient appearing older than stated age. CARDIOVASCULAR: Normal rate and regular rhythm without murmurs, gallops, or rubs. RESPIRATORY: Good respiratory efforts. Breath sounds equal and clear to auscultation bilaterally. GASTROINTESTINAL: Abdomen mildly distended, soft, normal active bowel sounds. MUSCULOSKELETAL: Extremities without cyanosis, or edema. NEURO: Alert & Oriented x4 to person, place, time, situation. Moves all ext x4 PSYCH: Appropriate mood and affect. Procedures None A/P Problem List: (1) Sepsis ICD Code: A41.9 - Sepsis, unspecified organism (2) Pancreatitis ICD Code: K85.90 - Acute pancreatitis without necrosis or infection, unspecified (3) Pancreatic mass ICD Code: K86.9 - Disease of pancreas, unspecified (4) S/P small bowel resection ICD Code: Z90.49 - Acquired absence of other specified parts of digestive tract (5) Hypokalemia ICD Code: E87.6 - Hypokalemia Status: Acute (6) Alcohol abuse ICD Code: F10.10 - Alcohol abuse Status: Chronic (7) Tobacco abuse ICD Code: Z72.0 - Tobacco use Assessment and Plan 42-year-old female with recent exploratory laparotomy at an outside hospital. She presented with pancreatitis, pancreatic pseudocyst, sepsis, EtOH abuse. Sepsis: Resolved. Discontinue antibiotics. Pancreatitis and pancreatic pseudocyst.: Lipase trended down. However pancreatic pseudocysts enlarged on repeat imaging. Discussed with GI, Dr. Gary. Plan is to allow the pancreas to calm down by keeping the patient on a clear liquid diet. Add supplementation through TPN as she refused Dobbhoff. GI would plan to repeat scan in 4 weeks and consider drainage at that time if the cyst mature. I discussed this plan with the patient at length. Initially she was inquiring about leaving the hospital AMA. She now agrees to wait to have a PICC line placed and home health care arranged for TPN. - No surgical procedures planned at this time. Pancreatic mass: MRI report noted. Repeat abdominal CT revealed multiple pseudocyst. GI to follow outpatient. S/P small bowel resection: Patient had not followed up as outpatient post-op. Sudha removed in ER. Management per general surgery. Seems to be progressing well from that standpoint. Hypokalemia: Supplement potassium. Monitor labs. Tobacco abuse: Counselled. Anxiety: Lorazepam as needed. Seizure disorder: Resume Keppra. Seizure precautions. DVT prophylaxis: SCDs, SKYLER hose. Avoid chemical prophylaxis secondary to coagulopathy. Discharge Planning Plan to discharge once arrangements are made for home health and TPN. Discussed with case management. PICC line ordered. Discussed with RN as well. More than 30 minutes spent in coordination of care today. Gunnar Varner MD May 26, 2017 13:10
--- NOTE | 2017-05-26 15:21 | HHI.GIFU ---
Subjective Remarks Pt resting in bed, tearful, wants to go home. (Camryn Marin) Objective Vitals I&O Vital Signs Date Time Temp Pulse Resp B/P (MAP) Pulse Ox O2 Delivery O2 Flow Rate FiO2 05/26/17 11:30 98.4 93 20 109/74 (86) 96 05/26/17 07:50 97.7 86 20 109/72 (84) 96 05/26/17 07:30 97.7 86 20 109/72 (84) 96 05/26/17 04:00 98.7 87 17 114/73 (87) 96 05/26/17 04:00 114 05/26/17 00:00 98.6 99 17 108/81 (90) 96 05/26/17 00:00 112 05/25/17 20:00 99.6 102 17 119/79 (92) 98 05/25/17 20:00 105 05/25/17 18:24 98 118/89 (99) 05/25/17 16:12 90 05/25/17 15:59 97.1 93 20 101/69 (80) 96 I/O 05/25/17 05/25/17 05/25/17 05/26/17 05/26/17 05/26/17 06:59 14:59 22:59 06:59 14:59 22:59 Intake Total 881 ml Output Total 500 ml Balance -500 ml 881 ml Intake Oral 581 ml IV Total 300 ml Output Urine Total 500 ml # Voids 1 10 1 # Bowel Movements 2 Laboratory Laboratory Tests Test 05/26/17 08:20 White Blood Count 7.4 Red Blood Count 2.30 Hemoglobin 7.1 Hematocrit 21.1 Mean Corpuscular Volume 91.6 Mean Corpuscular Hemoglobin 30.7 Mean Corpuscular Hemoglobin Concent 33.5 Red Cell Distribution Width 15.4 Platelet Count 516 Mean Platelet Volume 8.9 Blood Urea Nitrogen 3 Creatinine 0.28 Random Glucose 90 Calcium Level 8.0 Magnesium Level 1.5 Sodium Level 133 Potassium Level 3.3 Chloride Level 98 Carbon Dioxide Level 27.0 Anion Gap 8 Estimat Glomerular Filtration Rate 263 Date/Time Source Procedure Growth Status 05/13/17 20:23 Blood Peripheral Aerobic Blood Culture - Final NO GROWTH IN 5 DAYS Complete 05/13/17 20:23 Blood Peripheral Anaerobic Blood Culture - Final NO GROWTH IN 5 DAYS Complete 05/18/17 05:00 Stool Stool Stool Occult Blood (JAYESH) - Final HEMOCCULT NEGATIVE Complete Imaging Last Impressions Abdomen/Pelvis CT 05/23/17 0000 Signed Impressions: Service Date/Time: Tuesday, May 23, 2017 18:08 - CONCLUSION: 1. Multiple pseudocysts are now identified as described above. 2. The head and body of the pancreas remain indistinct. 3. Small to moderate amount of ascitic fluid. 4. The liver remains cirrhotic in appearance. 5. Small left pleural effusion with atelectasis in the lung bases. Alfredo Melendez MD Abdomen X-Ray 05/18/17 0000 Signed Impressions: Service Date/Time: Thursday, May 18, 2017 11:28 - CONCLUSION: Ileus type pattern. Hepatomegaly. Tang Garcia Jr., MD Chest X-Ray 05/15/17 0000 Signed Impressions: Service Date/Time: Monday, May 15, 2017 10:23 - CONCLUSION: NG tube appears appropriate in position. Stable basilar airspace disease. Dorothy Zepeda MD Cholangiopancreatography MRI 05/14/17 0000 Signed Impressions: Service Date/Time: Sunday, May 14, 2017 09:13 - CONCLUSION: 1. There is definite evidence of pancreatitis with inflammatory changes and fluid in the upper abdomen. 2. There is a focal nonspecific low signal lesion in head of pancreas measuring 2.5 x 1.5 cm without abnormal enhancement. The distal common bile duct at this level is narrowed suggestive of a stricture. The common bile duct is dilated at 1.8 cm. A focal mass in the head of the pancreas would be a primary consideration. However, there is also diffuse inflammatory changes involving the pancreas as well as inflammatory changes in the upper abdomen indicating pancreatitis which I believe confuses the issue. When the inflammatory changes associated with pancreatitis have resolved, ERCP would be recommended for further evaluation of this area. Sandro London MD Physical Exam HEENT: Normocephalic; atraumatic; no jaundice. CHEST: CTA, diminished CARDIAC: RRR ABDOMEN: Mild distention of upper abdomen. Mild TTP at lower abdomen and RUQ. Bowel sounds x 4. EXTREMITIES: No clubbing, cyanosis, 2+ pitting edema at bilateral LE SKIN: Normal; no rash; no jaundice. INSTRUMENT REPAIR SPECIALIST: Alert and oriented. (Camryn Marin CLINIC CHARGE NURSE) Assessment and Plan Plan ASSESSMENT: - Pancreatitis with large pseudocyst, pancreatic head mass. CT scan of the abdomen and pelvis with IV contrast (05/13/17) and this revealed cirrhosis, findings suggesting acute pancreatitis with large pseudocyst measuring 7.7 x 5.8 x 2.8 cm. Low density mass involving the head of the pancreas. Measuring 2.1 x 1.8 x 1.7 cm. I'm concerned this relates to malignancy. There is clearly some mass effect of the pancreatic duct which is mildly dilated within the body and spell measuring 4 mm. Consider MRI to further evaluate. Ileus type pattern. A small focus of air and fluid directly adjacent to the sigmoid colon. I am unsure if this relates to a very large I've reticulin or tic contained microperforation. Right basilar atelectasis. MRCP with and without contrast (05/14/17)----> there is definite evidence of pancreatitis with inflammatory changes and fluid in the upper abdomen. There is a focal nonspecific low signal lesion in the head of the pancreas measuring 2.5 x 1.5 cm without abnormal enhancement. The distal common bile duct at this level is narrowed suggestive of a stricture. The common bile duct is dilated at 1.8 cm. A focal mass in the head of the pancreas would be a primary consideration. However there is also diffuse inflammatory changes involving then pancreas as well as inflammatory changes in the abdomen indicating pancreatitis which I believe confuses the issue. When the inflammatory changes associated with pancreatitis have resolved, ERCP would be recommended for further evaluation of this area. CEA, Ca19-9 26.7. GS following. She has a large pseudocyst and pancreatic head mass, although it is unclear if this an inflammatory mass r/t pancreatitis vs. malignant mass at this time. D/W Dr. Child---> high risk for procedure, as her INR is high. Will plan for EUS once the fluid in abdomen has matured and coagulopathy improved. Possible ERCP pending EUS results. Lipase trending down . Cipro/Flagyl, IVF, PPI CT abd 05/23 shows multiple pseudocysts. concern for stimulation of more cysts from PO intake, pt refused dobhoff. nutrition recs for TPN: PPN recs: clinimix E 4.25/5 83ml/hr, IV lipids 31.25 ml/hr x 8h, weekly triglyceride level checks - Abdominal distention, n/v. Likely related to above. no more N/V KUB (05/18/17 )---> ileus type pattern. Hepatomegaly. - Leukocytosis. WBC 10.7 improved. Bcx no growth 5 day. Cipro/flagyl - Electrolyte abnormalities. Replacement per attending. - Anemia, no acute blood loss. HH slightly trending sharmila. Hemoccult negative. No bleeding reported - ETOH abuse. DT precautions per attending. - S/P recent hospitalization at [facility] for large complex pelvic abscess with concern for possible perforated Meckel's diverticulum. S/P exploration with washout and drainage of abscess with drain placement on (04/17/17) with Dr. Nichole. PLAN: - PPN recs: clinimix E 4.25/5 83ml/hr, IV lipids 31.25 ml/hr x 8h - PICC - Cont. Protonix - Cont. Cipro/Flagyl - Monitor HH, transfuse as necessary - Monitor labs - Supportive care - Further recommendations to follow based on results of above - Possible EUS once fluid matures, possible ERCP pending EUS results - Plan is to d/c home with PPN, d/w primary This pt seen by myself and Dr Harrell and this note is written on his behalf (Camryn Marin) Plan Patient seen and examined, and agree with the above note, patient still complaining of abdominal discomfort in the midepigastric area and requesting to get Percocet every 2 hours. She has pseudocyst this can be followed as an outpatient with endoscopic ultrasound. If able to tolerate food and her pain meds managed properly she can be discharged home from GI standpoint and follow as an outpatient. (Cain Harrell MD) Camryn Marin May 26, 2017 15:21 Cain Harrell MD May 26, 2017 22:14
--- NOTE | 2017-05-26 15:40 | HHI.FF ---
Face to Face Verification Diagnosis: (1) Pancreatic pseudocyst (2) Acute pancreatitis (3) Tobacco use disorder (4) Alcohol abuse (5) Pancreatic mass Home Health Nursing Order: Medical education Nursing assessment with vital signs IV medication administration I have seen patient Shant Oh on 05/26/17. My clinical findings support the need for the requested home health care services because: Limited ability to care for self Need for psychosocial assistance Injectable med education/admin I certify that my clinical findings support that this patient is homebound because: Need for psychosocial assistance Gunnar Varner MD May 26, 2017 15:40
--- NOTE | 2017-05-26 15:55 | HHI.PR ---
Subjective Subjective Notes currently on clear diet Objective Vitals/I&O Vital Signs Date Time Temp Pulse Resp B/P (MAP) Pulse Ox O2 Delivery O2 Flow Rate FiO2 05/26/17 11:30 98.4 93 20 109/74 (86) 96 Labs Laboratory Tests Test 05/26/17 08:20 White Blood Count 7.4 Red Blood Count 2.30 Hemoglobin 7.1 Hematocrit 21.1 Mean Corpuscular Volume 91.6 Mean Corpuscular Hemoglobin 30.7 Mean Corpuscular Hemoglobin Concent 33.5 Red Cell Distribution Width 15.4 Platelet Count 516 Mean Platelet Volume 8.9 Blood Urea Nitrogen 3 Creatinine 0.28 Random Glucose 90 Calcium Level 8.0 Magnesium Level 1.5 Sodium Level 133 Potassium Level 3.3 Chloride Level 98 Carbon Dioxide Level 27.0 Anion Gap 8 Estimat Glomerular Filtration Rate 263 Date/Time Source Procedure Growth Status 05/13/17 20:23 Blood Peripheral Aerobic Blood Culture - Final NO GROWTH IN 5 DAYS Complete 05/13/17 20:23 Blood Peripheral Anaerobic Blood Culture - Final NO GROWTH IN 5 DAYS Complete 05/18/17 05:00 Stool Stool Stool Occult Blood (JAYESH) - Final HEMOCCULT NEGATIVE Complete Cardiovascular: Regular Lungs: Clear Abdomen: Other (distended; non tender; well healed midline incision ) Extremities: No edema A/P Assessment and Plan 42 year old female s/p ex lap at OSH; now with pancreatitis; ETOH abuse; pancreatic pseudocyst -Diet per GI; currently on clears -OOB and mobilize -No operative plans at this time -GS will sign off -Please follow up [address] Nichole Attending Statement Patient seen and examined still going slow continue current mgnt no plans for surgery at this time pt will need to follow up in 1 month to reassess pseudocyst Attestation The exam, history, and the medical decision-making described in the above note were completed with the assistance of the mid-level provider. I reviewed and agree with the findings presented. I attest that I had a [id number] encounter with the patient on the same day, and personally performed and documented my assessment and findings in the medical record. Cady Ron May 26, 2017 15:55 Jose Nichole MD May 29, 2017 12:30
--- NOTE | 2017-05-26 17:31 | RADRPT ---
EXAM DATE/TIME: 05/26/2017 17:10 This report includes an Addendum and supersedes previous reports for this exam. [facility] COMPARISON: CHEST SINGLE AP, May 15, 2017, 10:23. INDICATIONS : PICC line placement. MEDICAL HISTORY : seizures, hx. subdural hematoma SURGICAL HISTORY : None. ENCOUNTER: Subsequent ACUITY: 2 weeks PAIN SCORE: 0/10 LOCATION: Bilateral chest FINDINGS: There is mild prominence of the perivascular interstitial markings. There is no appreciable pleural effusion for technique. Heart and mediastinum are unremarkable. Right IJ Llano-Alecia is present with t ip in the main pulmonary outflow tract. No definite pneumothorax is seen for technique. CONCLUSION: Question of mild interstitial process. KNahid Francis MD on May 26, 2017 at 17:28 Board Certified Radiologist. This report was verified electronically. ADDENDUM: Please note, there is no Llano-Alecia catheter present. Patient has a right upper extremity PICC line wh ich projects over the central venous system. The actual tip cannot be identified definitively due to overlying monitoring leads. If clinically warranted, recommend repeat with removal of the overlying l miroslava Ventura Ham MD on May 26, 2017 at 18:09 Board Certified Radiologist. This report was verified electronically.
[2017-05-26 19:06] LABS: INTERNATIONAL NORMALIZED RATIO 1.2 RATIO; PROTHROMBIN TIME - PATIENT 13.5 SEC (9.8-11.6)
--- NOTE | 2017-05-26 19:09 | RADRPT ---
EXAM DATE/TIME: 05/26/2017 18:35 [facility] COMPARISON: CHEST SINGLE AP, May 26, 2017, 17:10. INDICATIONS : PICC placement. MEDICAL HISTORY : Seizures, hx. subdural hematoma. SURGICAL HISTORY : None. ENCOUNTER: Subsequent ACUITY: 1 day PAIN SCORE: 0/10 LOCATION: Bilateral chest FINDINGS: A single view of the chest demonstrates a right upper cavity PICC line with the tip projecting over t he central venous system. Bibasilar atelectatic changes, unchanged. Accounting for low lung lines, he art size is normal. Osseous structures are intact CONCLUSION: 1. PICC line appropriately projects over the central venous system. 2. Stable bibasilar atelectatic changes Ventura Ham MD on May 26, 2017 at 19:07 Board Certified Radiologist. This report was verified electronically.
[2017-05-26] MEDS ORDERED: FAT EMULSION 20% INJ 250 ML (@10 mls/hr) IV SCH (20:00)
[2017-05-26] MEDS ORDERED: CLINIMIX E 4.25/5 2000 mL- >42 mls/hr IV SCH ×3 (20:00)
[2017-05-27] VITALS: BP 124/86; PULSE 103; RESP 18; TEMP 98.5; O2SAT 96
[2017-05-27] MEDS: LORazepam 0.5 MG TAB PO PRN ×2 (01:01→08:15)
[2017-05-27 04:00] VITALS: BP 121/79; PULSE 102; RESP 18; TEMP 98.7; O2SAT 94
[2017-05-27 06:43] LABS: BICARBONATE 29.2 MEQ/L (21.0-32.0); POTASSIUM 3.1 MEQ/L (3.5-5.1)
[2017-05-27 07:59] VITALS: PULSE 92
[2017-05-27 08:00] VITALS: BP 120/79; PULSE 99; RESP 16; TEMP 97.8; O2SAT 95
[2017-05-27] MEDS: PANTOPRAZOLE SODIUM 40 MG VIAL IV PUSH SCH (08:14)
[2017-05-27] MEDS: levETIRAcetam 500 MG TAB PO SCH (08:14)
[2017-05-27] MEDS: MAGNESIUM OXIDE 400 MG TAB PO SCH (08:14)
[2017-05-27] MEDS: FUROSEMIDE 40 MG TAB PO SCH (08:14)
[2017-05-27] MEDS: POTASSIUM CHLORIDE 20 MEQ CONTROLLED RELEASE TAB PO SCH (08:15)
[2017-05-27] MEDS: SODIUM CHLORIDE 0.9% FLUSH 10 ML FLUSH IV FLUSH SCH (08:15)
[2017-05-27] MEDS: THIAMINE HCL 100 MG TAB PO SCH (08:15)
[2017-05-27] MEDS ORDERED: OXYC-395 PO (11:07)
[2017-05-27 12:00] VITALS: BP 123/83; PULSE 101; RESP 18; TEMP 97.8; O2SAT 97
[2017-05-27 12:22] VITALS: PULSE 97
[2017-05-27] MEDS ORDERED: WALKER WHEELS/F1 MIS (13:02)
[2017-05-27] MEDS ORDERED: FURO1TAB60 PO (13:05)
[2017-05-27] MEDS ORDERED: PANT40TA3 PO (13:05)
[2017-05-27] MEDS ORDERED: POTA20TA5 PO (13:05)
[2017-05-27] MEDS ORDERED: LEVE500 PO (13:05)
--- NOTE | 2017-05-27 13:05 | HHI.DS ---
Discharge Summary Admission Date May 13, 2017 at 19:19 Discharge Date: May 27, 2017 Admitting Diagnosis Pancreatitis/Hyponatremia/Hypokalemia (1) Sepsis ICD Code: A41.9 - Sepsis, unspecified organism (2) Pancreatitis ICD Code: K85.90 - Acute pancreatitis without necrosis or infection, unspecified (3) Pancreatic mass ICD Code: K86.9 - Disease of pancreas, unspecified (4) S/P small bowel resection ICD Code: Z90.49 - Acquired absence of other specified parts of digestive tract (5) Hypokalemia ICD Code: E87.6 - Hypokalemia Status: Acute (6) Alcohol abuse ICD Code: F10.10 - Alcohol abuse Status: Chronic (7) Tobacco abuse ICD Code: Z72.0 - Tobacco use Procedures None Brief History - From Admission This is a 42-year-old female with a PMH of Alcohol Abuse, Alcohol Related Seizure and Tobacco Abuse who presented to the ER with complaints of abdominal pain and increased abdominal distention x1 wk. 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 Jose Nichole on 04/17/17, sudha still in place as patient has not followed up. Reports ongoing abdominal pain and decreased PO intake. No fever, chills. Ongoing alcohol, however states she "cut down" yesterday, normally drinks 3-4 rum drinks per day , reports having only one drink yesterday for her birthday. On arrival, BP 120/ 85, HR 95, O2 sat 98% on RA, Afebrile. WBC 17.5. Band neutrophils 9%. Na 123 , K+ 2.7. Lactic Acid 2.1. Lipase 3502. INR 1.7. UA negative. CXR with underinflation and atelectasis. CT Abd/Pelvis w/ cirrhosis, acute pancreatitis with large pseudocyst, low density mass at the head of the pancreas, concerning for malignancy, mass effect on pancreatic duct, recommendation for MRI. CBC/BMP: 05/26/17 0820 05/27/17 0515 Significant Findings Laboratory Tests Test 05/25/17 10:29 05/26/17 08:20 05/26/17 17:46 05/27/17 05:15 Red Blood Count 2.50 MIL/MM3 (4.00-5.30) 2.30 MIL/MM3 (4.00-5.30) Hemoglobin 7.3 GM/DL (11.6-15.3) 7.1 GM/DL (11.6-15.3) Hematocrit 23.0 % (35.0-46.0) 21.1 % (35.0-46.0) Mean Corpuscular Hemoglobin Concent 31.9 % (32.0-36.0) Platelet Count 522 TH/MM3 (150-450) 516 TH/MM3 (150-450) Blood Urea Nitrogen 2 MG/DL (7-18) 3 MG/DL (7-18) 2 MG/DL (7-18) Creatinine 0.38 MG/DL (0.50-1.00) 0.28 MG/DL (0.50-1.00) 0.32 MG/DL (0.50-1.00) Random Glucose 129 MG/DL (74-106) Calcium Level 7.5 MG/DL (8.5-10.1) 8.0 MG/DL (8.5-10.1) 8.2 MG/DL (8.5-10.1) Sodium Level 134 MEQ/L (136-145) 133 MEQ/L (136-145) 135 MEQ/L (136-145) Potassium Level 3.3 MEQ/L (3.5-5.1) 3.1 MEQ/L (3.5-5.1) Prothrombin Time 13.5 SEC (9.8-11.6) Imaging Last Impressions Chest X-Ray 05/26/17 0000 Signed Impressions: Service Date/Time: May 18:35 - CONCLUSION: 1. PICC line appropriately projects over the central venous system. 2. Stable bibasilar atelectatic changes Ventura Ham MD Abdomen/Pelvis CT 05/23/17 0000 Signed Impressions: Service Date/Time: Tuesday, May 23, 2017 18:08 - CONCLUSION: 1. Multiple pseudocysts are now identified as described above. 2. The head and body of the pancreas remain indistinct. 3. Small to moderate amount of ascitic fluid. 4. The liver remains cirrhotic in appearance. 5. Small left pleural effusion with atelectasis in the lung bases. Alfredo Melendez MD Abdomen X-Ray 05/18/17 0000 Signed Impressions: Service Date/Time: Thursday, May 18, 2017 11:28 - CONCLUSION: Ileus type pattern. Hepatomegaly. Tang Garcia Jr., MD Cholangiopancreatography MRI 05/14/17 0000 Signed Impressions: Service Date/Time: Sunday, May 14, 2017 09:13 - CONCLUSION: 1. There is definite evidence of pancreatitis with inflammatory changes and fluid in the upper abdomen. 2. There is a focal nonspecific low signal lesion in head of pancreas measuring 2.5 x 1.5 cm without abnormal enhancement. The distal common bile duct at this level is narrowed suggestive of a stricture. The common bile duct is dilated at 1.8 cm. A focal mass in the head of the pancreas would be a primary consideration. However, there is also diffuse inflammatory changes involving the pancreas as well as inflammatory changes in the upper abdomen indicating pancreatitis which I believe confuses the issue. When the inflammatory changes associated with pancreatitis have resolved, ERCP would be recommended for further evaluation of this area. Sandro London MD PE at Discharge GENERAL: Chronically ill-appearing female. Patient appearing older than stated age. CARDIOVASCULAR: Normal rate and regular rhythm without murmurs, gallops, or rubs. RESPIRATORY: Good respiratory efforts. Breath sounds equal and clear to auscultation bilaterally. GASTROINTESTINAL: Abdomen mildly distended, soft, normal active bowel sounds. MUSCULOSKELETAL: Extremities without cyanosis, or edema. NEURO: Alert & Oriented x4 to person, place, time, situation. Moves all ext x4 PSYCH: Appropriate mood and affect. Pt update on day of discharge Patient reports she is feeling better. She wants to go home. Cleared by GI for discharge. Hospital Course 42-year-old female with recent exploratory laparotomy at an outside hospital. She presented with pancreatitis, pancreatic pseudocyst, sepsis, EtOH abuse. Evaluation and treatment course detailed below: Sepsis: The patient was treated with broad-spectrum antibiotics and sepsis resolved. Antibiotics discontinued. Pancreatitis and pancreatic pseudocyst.: Lipase trended down. However pancreatic pseudocysts enlarged on repeat imaging. Per GI, pseudocyst can be followed as an outpatient with endoscopic ultrasound. If able to tolerate food and her pain meds managed properly she can be discharged home from GI standpoint and follow as an outpatient. Pancreatic mass: MRI report noted. Repeat abdominal CT revealed multiple pseudocyst. GI to follow outpatient. S/P small bowel resection: Patient had not followed up as outpatient post-op. Sudha removed in ER. Patient followed by general surgery. No complications from that standpoint. Tobacco abuse: Counselled. Anxiety: Lorazepam as needed. Seizure disorder: Resume Keppra. Pt Condition on Discharge: Good Discharge Disposition: Discharge Home Discharge Time: > 30 minutes Discharge Instructions DIET: Follow Instructions for: Full Liquid Diet Activities you can perform: Regular-No Restrictions Other Activity Instructions: Do not drink alcohol. Follow up Referrals: Gastroenterology - 2 Weeks with Cain Harrell MD Surgical - 1 Month with Jose Nichole MD New Medications: Pantoprazole (Pantoprazole) 40 Mg Tab 40 MG PO DAILY for Reflux, #30 TAB 0 Refills Walker with Front Wheels (Walker with Front Wheels) 1 Mis Mis EA .ROUTE DIRECTED, #1 0 Refills Oxycodone (Oxycodone) 10 Mg Tab 10 MG PO Q4H PRN for PAIN SCALE 7 TO 10, #30 TAB Potassium Chloride Microencaps (Potassium Chloride Microencaps) 20 Meq Tab 20 MEQ PO DAILY, #30 TAB Continued Medications: Furosemide (Lasix) 40 Mg Tab 40 MG PO DAILY, #30 TAB 0 Refills (This prescription has been renewed) Levetiracetam (Keppra) 500 Mg Tab 500 MG PO BID for Control Seizures, #60 TAB 0 Refills (This prescription has been renewed) Gunnar Varner MD May 27, 2017 13:05
== END 2017-05-27 15:57 | disposition home or self-care (01) | DRG 871 ==
LOC: NEPC 11:31 → NEDA 19:19 → HOCB 22:15
PROVIDERS: ADMIT Family Medicine; ATTEND Family Medicine
DX: A41.9 Sepsis, unspecified organism (principal); K85.90 Acute pancreatitis without necrosis or infection, unspecified; D68.9 Coagulation defect, unspecified; E44.0 Moderate protein-calorie malnutrition; K86.3 Pseudocyst of pancreas; K74.60 Unspecified cirrhosis of liver; K86.1 Other chronic pancreatitis; K56.7 Ileus, unspecified; E87.1 Hypo-osmolality and hyponatremia; J98.11 Atelectasis; E83.42 Hypomagnesemia; K86.89 Other specified diseases of pancreas; E87.6 Hypokalemia; D64.9 Anemia, unspecified; F32.9 Major depressive disorder, single episode, unspecified; J44.9 Chronic obstructive pulmonary disease, unspecified; F10.10 Alcohol abuse, uncomplicated; F17.210 Nicotine dependence, cigarettes, uncomplicated; F41.9 Anxiety disorder, unspecified; Z68.22 Body mass index [BMI] 22.0-22.9, adult; Z87.820 Personal history of traumatic brain injury; Z88.0 Allergy status to penicillin; Z88.1 Allergy status to other antibiotic agents; Z90.49 Acquired absence of other specified parts of digestive tract
CPT/HCPCS: 36569; 51702; 71010; 74000; 74177; 74183; 76377; 76937; 80048; 80053; 81001; 82272; 82378; 82948; 83605; 83690; 83735; 84100; 84155; 84478; 84702; 85007; 85025; 85027; 85610; 85730; 86301; 87040; 96365; 96366; 96368; 96375; A9579; C9113; J0744; J1170; J2270; J2405; J3411; J3475; J3480; J7030; J7040; Q9963; Q9967

== ENCOUNTER 2018-04-05 09:24 | Inpatient (IN) ==
[2018-04-05 13:12] LABS: Baso # (Auto) 0.1 th/mm3 (0.0-0.2); Baso % (Auto) 0.6 % (0.0-2.0); Eos # (Auto) 0.1 th/mm3 (0.0-0.4); Eos % (Auto) 0.6 % (0.0-4.0); Hematocrit 42.3 % (35.0-46.0); Hemoglobin 14.4 gm/dL (11.6-15.3); Lymph # (Auto) 0.9 th/mm3 (1.0-4.8); Lymph % (Auto) 9.3 % (9.0-44.0); Mean Corpuscular HGB Conc 34.2 % (32.0-36.0); Mean Corpuscular Hemoglobin 31.9 pg (27.0-34.0); Mean Corpuscular Volume 93.4 fL (80.0-100.0); Mean Platelet Volume 8.4 fL (7.0-11.0); Mono # (Auto) 0.9 th/mm3 (0.0-0.9); Mono % (Auto) 9.3 % (0.0-8.0); Neut # (Auto) 8.2 th/mm3 (1.8-7.7); Neut % (Auto) 80.2 % (16.0-70.0); Platelet Count 221 th/mm3 (150-450); Red Blood Count 4.53 mil/mm3 (4.00-5.30); Red Cell Distribution Width 13.1 % (11.6-17.2); White Blood Count 10.2 th/mm3 (4.0-11.0)
--- NOTE | 2018-04-05 13:26 | ED ---
HPI General Chief complaint: Abdominal Pain Stated complaint: Abd pain Time Seen by Provider: 04/05/18 12:59 Source: patient Mode of arrival: EMS Limitations: no limitations and other History of Present Illness HPI narrative: 42-year-old female with history of traumatic brain injury, abdominal surgery with bowel resection in July 2017, presents emergency department for evaluation. Patient states she has had chest pain since yesterday. She states it is constant. It is associated with intermittent shortness of breath and diaphoresis. She states she is also having abdominal and back pain. She believes that her abdomen is more distended than usual. She states she is not taking any medication that she is prescribed however she cannot tell me what medication she is supposed to be prescribed. She denies any cardiac history. She denies any recent illnesses, fever, or chills. She has no other symptoms to report at this time. Related Data Home Medications Medication Instructions Recorded Confirmed No Known Home Medications 04/05/18 04/05/18 Allergies Allergy/AdvReac Type Severity Reaction Status Date / Time amoxicillin Allergy Severe Unverified 05/13/17 12:47 penicillin G Allergy Severe Unverified 05/13/17 12:47 Review of Systems Except as stated in HPI: all other systems reviewed are negative PMFSH History History Provided By: Patient Medical History Medical History Traumatic brain injury (Acute) Surgical History Surgical History H/O abdominal surgery (Acute) H/O brain surgery (Acute) History of orthopedic surgery (Acute) Social History Social History Substance History: No History of Abuse Second Hand Smoke Exposure: No Smoking Status: Current every day smoker Tobacco Type: Cigarettes How Often Do You Have a Drink Containing Alcohol: Monthly or less Recent Travel in [facility] within the Last 8 Weeks: No Recent Out of Country Travel within the Last 8 Weeks: No Exam Narrative Exam Narrative: GENERAL: Well-nourished, female patient, with bizarre affect, but in no acute distress. SKIN: Focused skin assessment warm/dry. Midline abdominal scar. HEAD: Atraumatic. Normocephalic. EYES: Pupils equal and round. No scleral icterus. No injection or drainage. ENT: No nasal bleeding or discharge. Mucous membranes pink and moist. NECK: Trachea midline. No JVD. CARDIOVASCULAR: Regular rate and rhythm. No murmur appreciated. RESPIRATORY: No accessory muscle use. Clear to auscultation. Breath sounds equal bilaterally. GASTROINTESTINAL: Abdomen soft, generalized tenderness to palpation, no guarding. No rebound tenderness. Nondistended. Patient does have a ventral hernia that is soft and reducible. Hepatic and splenic margins not palpable. MUSCULOSKELETAL: No obvious deformities. No clubbing. No cyanosis. No edema. NEUROLOGICAL: Awake and alert. No obvious cranial nerve deficits. Motor grossly within normal limits. Normal speech. PSYCHIATRIC: Bizarre affect insight Course Initial Documented Vital Signs Temperature 98.5 F 04/05/18 11:19 Pulse Rate 88 04/05/18 11:19 Respiratory Rate 17 04/05/18 11:19 Blood Pressure 200/124 H 04/05/18 11:19 Pulse Oximetry 97 04/05/18 11:19 Last Documented Vital Signs Temperature 98.5 F 04/05/18 11:19 Pulse Rate 105 H 04/05/18 12:55 Respiratory Rate 16 04/05/18 12:55 Blood Pressure 204/135 H 04/05/18 12:55 Pulse Oximetry 97 04/05/18 12:55 Medical Decision Making CHIDI Attestation CHIDI supervised visit: Yes MDM Narrative Medical decision making narrative: 42-year-old female presents emergency department for evaluation of chest pain since yesterday with abdominal and back pain. Workup was initiated in triage ambulance hallway. Once a medical bed becomes available, patient will be transferred and care assumed by that provider. Lab Data Result diagrams: 04/05/18 12:56 04/05/18 12:56 Lab Results 04/05/18 04/05/18 04/05/18 Range/Units 12:56 12:56 12:56 WBC 10.2 (4.0-11.0) th/mm3 RBC 4.53 (4.00-5.30) mil/mm3 Hgb 14.4 (11.6-15.3) gm/dL Hct 42.3 (35.0-46.0) % MCV 93.4 (80.0-100.0) fL MCH 31.9 (27.0-34.0) pg MCHC 34.2 (32.0-36.0) % RDW 13.1 (11.6-17.2) % Plt Count 221 (150-450) th/mm3 MPV 8.4 (7.0-11.0) fL Neut % (Auto) 80.2 H (16.0-70.0) % Lymph % (Auto) 9.3 (9.0-44.0) % Alcorn % (Auto) 9.3 H (0.0-8.0) % Eos % (Auto) 0.6 (0.0-4.0) % Baso % (Auto) 0.6 (0.0-2.0) % Neut # (Auto) 8.2 H (1.8-7.7) th/mm3 Lymph # (Auto) 0.9 L (1.0-4.8) th/mm3 Alcorn # (Auto) 0.9 (0.0-0.9) th/mm3 Eos # (Auto) 0.1 (0.0-0.4) th/mm3 Baso # (Auto) 0.1 (0.0-0.2) th/mm3 WBC Differential . Differential Comment Auto diff final PT (9.8-11.6) sec INR Ratio APTT (24.3-30.1) sec Sodium 136 (136-145) meq/L Potassium 3.3 L (3.5-5.1) meq/L Chloride 101 (98-107) meq/L Carbon Dioxide 24.2 (21.0-32.0) meq/L Anion Gap 11 (5-15) meq/L BUN 8 (7-18) mg/dL Creatinine 0.39 L (0.50-1.00) mg/dL Estimated GFR Greater than 89 (>89) mL/min Random Glucose 98 (74-106) mg/dL Calcium 8.9 (8.5-10.1) mg/dL Total Bilirubin 0.5 (0.2-1.0) mg/dL AST 19 (15-37) U/L ALT 12 (10-53) U/L Alkaline Phosphatase 191 H (45-117) U/L Total Creatine Kinase 32 (26-192) U/L Troponin I Less than 0.02 L (0.02-0.05) ng/mL Total Protein 8.2 (6.4-8.2) g/dL Albumin 3.4 (3.4-5.0) g/dL Lipase 05202 H (73-393) U/L Urine Color Kati (Yellw/Straw) Urine Clarity Cloudy H (Clear) Urine pH 5.0 (5.0-8.5) Ur Specific Maria Stein 1.027 (1.002-1.035) Urine Protein 100 H (Neg-Trace) mg/dL Urine Glucose (UA) Negative (Negative) mg/dL Urine Ketones 20 (Negative) mg/dL Urine Occult Blood Small H (Negative) Urine Nitrate Negative (Negative) Urine Bilirubin Negative (Negative) Urine Urobilinogen 4 or greater (Less than 2) mg/dL Ur Leukocyte Esterase Negative (Negative) Urine RBC 11 H (0-3) /hpf Urine WBC 4 (0-5) /hpf Ur Squamous Epith Cells 10 (0-5) /hpf Calcium Oxalate Crystal Occasional H (None) /hpf Urine Bacteria Rare H (None) /hpf Hyaline Casts 74 (0-3) /lpf Urine Mucus Many H (Occasional) /lpf Micro UA Comment Culture not ind Urine Culture Comments Culture not ind 04/05/18 04/05/18 04/05/18 Range/Units 12:56 12:56 13:10 WBC (4.0-11.0) th/mm3 RBC (4.00-5.30) mil/mm3 Hgb (11.6-15.3) gm/dL Hct (35.0-46.0) % MCV (80.0-100.0) fL MCH (27.0-34.0) pg MCHC (32.0-36.0) % RDW (11.6-17.2) % Plt Count (150-450) th/mm3 MPV (7.0-11.0) fL Neut % (Auto) (16.0-70.0) % Lymph % (Auto) (9.0-44.0) % Alcorn % (Auto) (0.0-8.0) % Eos % (Auto) (0.0-4.0) % Baso % (Auto) (0.0-2.0) % Neut # (Auto) (1.8-7.7) th/mm3 Lymph # (Auto) (1.0-4.8) th/mm3 Alcorn # (Auto) (0.0-0.9) th/mm3 Eos # (Auto) (0.0-0.4) th/mm3 Baso # (Auto) (0.0-0.2) th/mm3 WBC Differential Differential Comment PT 10.9 (9.8-11.6) sec INR 1.1 Ratio APTT 27.6 (24.3-30.1) sec Sodium (136-145) meq/L Potassium (3.5-5.1) meq/L Chloride (98-107) meq/L Carbon Dioxide (21.0-32.0) meq/L Anion Gap (5-15) meq/L BUN (7-18) mg/dL Creatinine (0.50-1.00) mg/dL Estimated GFR (>89) mL/min Random Glucose (74-106) mg/dL Calcium (8.5-10.1) mg/dL Total Bilirubin (0.2-1.0) mg/dL AST (15-37) U/L ALT (10-53) U/L Alkaline Phosphatase (45-117) U/L Total Creatine Kinase Cancelled (26-192) U/L Troponin I Cancelled (0.02-0.05) ng/mL Total Protein (6.4-8.2) g/dL Albumin (3.4-5.0) g/dL Lipase (73-393) U/L Urine Color (Yellw/Straw) Urine Clarity (Clear) Urine pH (5.0-8.5) Ur Specific Maria Stein (1.002-1.035) Urine Protein (Neg-Trace) mg/dL Urine Glucose (UA) (Negative) mg/dL Urine Ketones (Negative) mg/dL Urine Occult Blood (Negative) Urine Nitrate (Negative) Urine Bilirubin (Negative) Urine Urobilinogen (Less than 2) mg/dL Ur Leukocyte Esterase (Negative) Urine RBC (0-3) /hpf Urine WBC (0-5) /hpf Ur Squamous Epith Cells (0-5) /hpf Calcium Oxalate Crystal (None) /hpf Urine Bacteria (None) /hpf Hyaline Casts (0-3) /lpf Urine Mucus (Occasional) /lpf Micro UA Comment Urine Culture Comments Imaging Data Radiologist's impression: Chest X-Ray 04/05/18 13:01 CONCLUSION: No acute intrathoracic disease. Abdomen/Pelvis CT 04/05/18 13:57 CONCLUSION: 1. There is diffuse enlargement and edema throughout most of the pancreas consistent with acute pancreatitis. There is also multiple stippled calcification throughout the entire pancreas consistent with chronic pancreatitis. There is diffuse dilatation of the pancreatic duct at 6 mm. 2. Tiny stone in the gallbladder. No definite biliary tract obstruction. 3. There is a loop of small bowel in a anterior abdominal wall hernia without definite obstruction at this time. Recommend correlation with patient's physical exam. 4. Small amount of free fluid deep in the pelvis. This is most likely related to patient's acute pancreatitis. Gallbladder Ultrasound 04/05/18 14:21 CONCLUSION: 1. Nodular hepatic contour suggestive of cirrhosis. Trace ascites near the inferior margin of the liver. 2. Prominent diffusely heterogeneous pancreas with pancreatic ductal dilatation. Findings are concerning for acute on chronic pancreatitis. Correlation with pancreatic enzymes is recommended. 3. Prominent common bile duct without focal lesion. This is likely related to inflammation of the pancreatic head although distal CBD is not sufficiently evaluated to exclude stone. MRCP examination may be performed as clinically warranted. Discharge Plan Discharge Disposition Patient Disposition: 30 Still Patient Physicians Team ED Provider: Tamir Pack Primary Care Provider: UNKNOWN, Attending Provider: Reymundo Valdez Status ED Status: Admitted Patient
[2018-04-05 13:32] LABS: Alanine Aminotransferase 12 U/L (10-53); Albumin 3.4 g/dL (3.4-5.0); Anion Gap 11 meq/L (5-15); Aspartate Aminotransferase 19 U/L (15-37); Blood Urea Nitrogen 8 mg/dL (7-18); Calcium 8.9 mg/dL (8.5-10.1); Carbon Dioxide 24.2 meq/L (21.0-32.0); Chloride 101 meq/L (98-107); Glomerular Filtration Rate Greater Than 89 mL/min (>89); Glucose,Random 98 mg/dL (74-106); Potassium 3.3 meq/L (3.5-5.1); Sodium 136 meq/L (136-145)
--- NOTE | 2018-04-05 13:34 | XR ---
EXAM DATE: 04/05/2018 1:15 PM EDT AGE/SEX: 42 years / Female INDICATIONS: . Chest pain today. CLINICAL DATA: This is the patient's initial encounter. Patient reports that signs and symptoms have been present for 1 day and indicates a pain score of 5/10. MEDICAL/SURGICAL HISTORY: None. None. COMPARISON: [facility] [place] CHEST SINGLE AP, 05/26/2017. . FINDINGS: A single AP view of the chest demonstrates the lungs to be symmetrically aerated without evidence of mass, infiltrate or effusion. The cardiomediastinal contours are unremarkable. Osseous structures a re intact. CONCLUSION: No acute intrathoracic disease. Electronically signed by: Sandro London MD 04/05/2018 1:33 PM EDT
[2018-04-05 13:36] LABS: Alkaline Phosphatase 191 U/L (45-117); Creatine Kinase 32 U/L (26-192); Lipase 14233 U/L (73-393); Total Protein 8.2 g/dL (6.4-8.2)
[2018-04-05 13:37] LABS: Bacteria,Urine Rare /hpf; Calcium Oxalate Crystals,Urine Occasional /hpf; Clarity,Urine Cloudy (Clear); Color,Urine Amber (Yellw/Straw); Glucose,Urine (UA) Negative (Negative); Hyaline Casts,Urine 74 /lpf (0-3); Leukocyte Esterase,Urine Negative (Negative); Mucus,Urine Many /lpf (Occasional); Nitrite,Urine Negative (Negative); Specific Gravity,Urine 1.027 (1.002-1.035); Squamous Epithelial Cell,Urine 10 /hpf (0-5); Urobilinogen,Urine 4 or Greater mg/dL (Less than 2)
[2018-04-05 13:40] LABS: Bilirubin,Urine Negative (Negative)
[2018-04-05] MEDS ORDERED: Morphine Sulfate Inj 2 MG/ML Vial IV.PUSH ONE (13:58)
[2018-04-05] MEDS ORDERED: hydrALAZINE HCl Inj 20 MG/ML Vial IV.PUSH ONE (14:21)
[2018-04-05] MEDS ORDERED: Morphine Inj 4 MG/ML Vial IV.PUSH ONE (14:21)
[2018-04-05 14:26] LABS: Activated Partial Thrombo Time 27.6 sec (24.3-30.1); INR 1.1 Ratio; Prothrombin Time 10.9 sec (9.8-11.6)
[2018-04-05] MEDS: Sod Chloride 0.9% Inj 1,000 ML IV.CONT SCH (14:53)
[2018-04-05] MEDS ORDERED: Bisacodyl 10 MG Supp RECTAL PRN (15:44)
--- NOTE | 2018-04-05 15:56 | ED ---
HPI General Chief Complaint: Abdominal Pain Stated Complaint: Abd pain Time Seen by Provider: 04/05/18 12:59 Source: patient Mode of arrival: EMS Limitations: no limitations and other Related Data Home Medications Medication Instructions Recorded Confirmed No Known Home Medications 04/05/18 04/05/18 Allergies Allergy/AdvReac Type Severity Reaction Status Date / Time amoxicillin Allergy Severe Hives Verified 04/05/18 19:19 penicillin G Allergy Severe Hives Verified 04/05/18 19:19 Review of Systems ROS Unobtainable All other systems reviewed negative except as stated in HPI Constitutional Reports as per HPI Eyes Denies change in vision ENT Denies headache(s) and Denies nasal congestion Cardiovascular Denies chest pain Respiratory Denies dyspnea Gastrointestinal Reports abdominal pain Genitourinary Denies difficulty voiding Musculoskeletal Denies myalgias Integumentary/Breasts Denies rash Neurologic Denies headache(s) Psychiatric Denies depression Endocrine Denies polyuria Hematologic/Lymphatic Denies easy bruising [facility] Medical History Medical History Traumatic brain injury (Acute) Surgical History Surgical History H/O abdominal surgery (Acute) H/O brain surgery (Acute) History of orthopedic surgery (Acute) Social History Social History Substance History: No History of Abuse Second Hand Smoke Exposure: No Smoking Status: Current every day smoker Tobacco Type: Cigarettes How Often Do You Have a Drink Containing Alcohol: Monthly or less Recent Travel in [facility] [[email or web address]] within the Last 8 Weeks: No Recent Out of Country Travel within the Last 8 Weeks: No Immunization History Tetanus Immunization: Unsure Exam [facility] Head: normocephalic and atraumatic Nose: no nasal discharge and no epistaxis Mouth: moist mucous membranes Eyes Sclera: normal sclerae Pupils: PERRL Neck Neck: trachea midline and no JVD Resp Effort & Inspection: no use of accessory muscles Auscultation: clear to auscultation bilaterally Cardio Rate: regular rate Rhythm: regular rhythm Heart Sounds: no murmurs GI Inspection: non-distended, striae, no visible herniation, no visible pulsation and No Kehr's sign positive Palpation: soft, no hepatosplenomegaly and tender in the epigastrum and in the LLQ; not in the RLQ, not in the LUQ, not in the RUQ, not at McBurney's point, not periumbilically, not suprapubicly, Broussard's sign negative, obturator sign negative, psoas sign negative, with no rebound tenderness, Rovsing's sign negative and no other Auscultation: normal bowel sounds Skin General: dry skin (warm) Neuro General: alert and awake Cranial Nerves: other Speech: speech normal Motor: no movement abnormalities noted Extrem General: normal to inspection, no clubbing, no cyanosis and no edema Psych Mood: congruent mood Affect: normal affect Judgment: judgment good Course Reevaluation(s) Reevaluation #1: Patient has received narcotics with improvement of her epigastric pain. Appears that she has markedly elevated lipase. Will obtain a ultrasound to rule out gallbladder disease. Time: 14:24 Initial Documented Vital Signs Temperature 98.5 F 04/05/18 11:19 Pulse Rate 88 04/05/18 11:19 Respiratory Rate 17 04/05/18 11:19 Blood Pressure 200/124 H 04/05/18 11:19 Pulse Oximetry 97 04/05/18 11:19 Last Documented Vital Signs Temperature 97.8 F 04/05/18 19:17 Pulse Rate 80 04/05/18 19:17 Respiratory Rate 17 04/05/18 19:17 Blood Pressure 167/123 H 04/05/18 19:17 Pulse Oximetry 98 04/05/18 19:18 Medical Decision Making MDM Narrative Medical decision making narrative: Patient with markedly elevated lipase at 14, 000 suggestive of acute pancreatitis. Ultrasound of gallbladder showed inflammation of the pancreatic head and distal CBT not sufficiently evaluated to exclude stone. MRCP was recommended. Abdominal wall hernia without obstruction has been also noted. Tox screen unremarkable POC Test Results POC Urine Results: Negative Lab Data Lab results reviewed: Yes I reviewed the patient's lab results. Result diagrams: 04/05/18 12:56 04/05/18 12:56 Lab Results 04/05/18 04/05/18 04/05/18 Range/Units 12:56 12:56 12:56 WBC 10.2 (4.0-11.0) th/mm3 RBC 4.53 (4.00-5.30) mil/mm3 Hgb 14.4 (11.6-15.3) gm/dL Hct 42.3 (35.0-46.0) % MCV 93.4 (80.0-100.0) fL MCH 31.9 (27.0-34.0) pg MCHC 34.2 (32.0-36.0) % RDW 13.1 (11.6-17.2) % Plt Count 221 (150-450) th/mm3 MPV 8.4 (7.0-11.0) fL Neut % (Auto) 80.2 H (16.0-70.0) % Lymph % (Auto) 9.3 (9.0-44.0) % Chase % (Auto) 9.3 H (0.0-8.0) % Eos % (Auto) 0.6 (0.0-4.0) % Baso % (Auto) 0.6 (0.0-2.0) % Neut # (Auto) 8.2 H (1.8-7.7) th/mm3 Lymph # (Auto) 0.9 L (1.0-4.8) th/mm3 Chase # (Auto) 0.9 (0.0-0.9) th/mm3 Eos # (Auto) 0.1 (0.0-0.4) th/mm3 Baso # (Auto) 0.1 (0.0-0.2) th/mm3 WBC Differential . Differential Comment Auto diff final PT (9.8-11.6) sec INR Ratio APTT (24.3-30.1) sec Sodium 136 (136-145) meq/L Potassium 3.3 L (3.5-5.1) meq/L Chloride 101 (98-107) meq/L Carbon Dioxide 24.2 (21.0-32.0) meq/L Anion Gap 11 (5-15) meq/L BUN 8 (7-18) mg/dL Creatinine 0.39 L (0.50-1.00) mg/dL Estimated GFR Greater than 89 (>89) mL/min Random Glucose 98 (74-106) mg/dL Calcium 8.9 (8.5-10.1) mg/dL Total Bilirubin 0.5 (0.2-1.0) mg/dL AST 19 (15-37) U/L ALT 12 (10-53) U/L Alkaline Phosphatase 191 H (45-117) U/L Total Creatine Kinase 32 (26-192) U/L Troponin I Less than 0.02 L (0.02-0.05) ng/mL Total Protein 8.2 (6.4-8.2) g/dL Albumin 3.4 (3.4-5.0) g/dL Triglycerides (42-150) mg/dL Lipase 22325 H (73-393) U/L Urine Color Kati (Yellw/Straw) Urine Clarity Cloudy H (Clear) Urine pH 5.0 (5.0-8.5) Ur Specific Roebling 1.027 (1.002-1.035) Urine Protein 100 H (Neg-Trace) mg/dL Urine Glucose (UA) Negative (Negative) mg/dL Urine Ketones 20 (Negative) mg/dL Urine Occult Blood Small H (Negative) Urine Nitrate Negative (Negative) Urine Bilirubin Negative (Negative) Urine Urobilinogen 4 or greater (Less than 2) mg/dL Ur Leukocyte Esterase Negative (Negative) Urine RBC 11 H (0-3) /hpf Urine WBC 4 (0-5) /hpf Ur Squamous Epith Cells 10 (0-5) /hpf Calcium Oxalate Crystal Occasional H (None) /hpf Urine Bacteria Rare H (None) /hpf Hyaline Casts 74 (0-3) /lpf Urine Mucus Many H (Occasional) /lpf Micro UA Comment Culture not ind Urine Culture Comments Culture not ind 04/05/18 04/05/18 04/05/18 Range/Units 12:56 12:56 12:56 WBC (4.0-11.0) th/mm3 RBC (4.00-5.30) mil/mm3 Hgb (11.6-15.3) gm/dL Hct (35.0-46.0) % MCV (80.0-100.0) fL MCH (27.0-34.0) pg MCHC (32.0-36.0) % RDW (11.6-17.2) % Plt Count (150-450) th/mm3 MPV (7.0-11.0) fL Neut % (Auto) (16.0-70.0) % Lymph % (Auto) (9.0-44.0) % Chase % (Auto) (0.0-8.0) % Eos % (Auto) (0.0-4.0) % Baso % (Auto) (0.0-2.0) % Neut # (Auto) (1.8-7.7) th/mm3 Lymph # (Auto) (1.0-4.8) th/mm3 Chase # (Auto) (0.0-0.9) th/mm3 Eos # (Auto) (0.0-0.4) th/mm3 Baso # (Auto) (0.0-0.2) th/mm3 WBC Differential Differential Comment PT (9.8-11.6) sec INR Ratio APTT (24.3-30.1) sec Sodium (136-145) meq/L Potassium (3.5-5.1) meq/L Chloride (98-107) meq/L Carbon Dioxide (21.0-32.0) meq/L Anion Gap (5-15) meq/L BUN (7-18) mg/dL Creatinine (0.50-1.00) mg/dL Estimated GFR (>89) mL/min Random Glucose (74-106) mg/dL Calcium (8.5-10.1) mg/dL Total Bilirubin (0.2-1.0) mg/dL AST (15-37) U/L ALT (10-53) U/L Alkaline Phosphatase (45-117) U/L Total Creatine Kinase Cancelled (26-192) U/L Troponin I Cancelled (0.02-0.05) ng/mL Total Protein (6.4-8.2) g/dL Albumin (3.4-5.0) g/dL Triglycerides 139 (42-150) mg/dL Lipase (73-393) U/L Urine Color (Yellw/Straw) Urine Clarity (Clear) Urine pH (5.0-8.5) Ur Specific Roe[place] (1.002-1.035) Urine Protein (Neg-Trace) mg/dL Urine Glucose (UA) (Negative) mg/dL Urine Ketones (Negative) mg/dL Urine Occult Blood (Negative) Urine Nitrate (Negative) Urine Bilirubin (Negative) Urine Urobilinogen (Less than 2) mg/dL Ur Leukocyte Esterase (Negative) Urine RBC (0-3) /hpf Urine WBC (0-5) /hpf Ur Squamous Epith Cells (0-5) /hpf Calcium Oxalate Crystal (None) /hpf Urine Bacteria (None) /hpf Hyaline Casts (0-3) /lpf Urine Mucus (Occasional) /lpf Micro UA Comment Urine Culture Comments 04/05/18 Range/Units 13:10 WBC (4.0-11.0) th/mm3 RBC (4.00-5.30) mil/mm3 Hgb (11.6-15.3) gm/dL Hct (35.0-46.0) % MCV (80.0-100.0) fL MCH (27.0-34.0) pg MCHC (32.0-36.0) % RDW (11.6-17.2) % Plt Count (150-450) th/mm3 MPV (7.0-11.0) fL Neut % (Auto) (16.0-70.0) % Lymph % (Auto) (9.0-44.0) % Chase % (Auto) (0.0-8.0) % Eos % (Auto) (0.0-4.0) % Baso % (Auto) (0.0-2.0) % Neut # (Auto) (1.8-7.7) th/mm3 Lymph # (Auto) (1.0-4.8) th/mm3 Chase # (Auto) (0.0-0.9) th/mm3 Eos # (Auto) (0.0-0.4) th/mm3 Baso # (Auto) (0.0-0.2) th/mm3 WBC Differential Differential Comment PT 10.9 (9.8-11.6) sec INR 1.1 Ratio APTT 27.6 (24.3-30.1) sec Sodium (136-145) meq/L Potassium (3.5-5.1) meq/L Chloride (98-107) meq/L Carbon Dioxide (21.0-32.0) meq/L Anion Gap (5-15) meq/L BUN (7-18) mg/dL Creatinine (0.50-1.00) mg/dL Estimated GFR (>89) mL/min Random Glucose (74-106) mg/dL Calcium (8.5-10.1) mg/dL Total Bilirubin (0.2-1.0) mg/dL AST (15-37) U/L ALT (10-53) U/L Alkaline Phosphatase (45-117) U/L Total Creatine Kinase (26-192) U/L Troponin I (0.02-0.05) ng/mL Total Protein (6.4-8.2) g/dL Albumin (3.4-5.0) g/dL Triglycerides (42-150) mg/dL Lipase (73-393) U/L Urine Color (Yellw/Straw) Urine Clarity (Clear) Urine pH (5.0-8.5) Ur Specific Roebling (1.002-1.035) Urine Protein (Neg-Trace) mg/dL Urine Glucose (UA) (Negative) mg/dL Urine Ketones (Negative) mg/dL Urine Occult Blood (Negative) Urine Nitrate (Negative) Urine Bilirubin (Negative) Urine Urobilinogen (Less than 2) mg/dL Ur Leukocyte Esterase (Negative) Urine RBC (0-3) /hpf Urine WBC (0-5) /hpf Ur Squamous Epith Cells (0-5) /hpf Calcium Oxalate Crystal (None) /hpf Urine Bacteria (None) /hpf Hyaline Casts (0-3) /lpf Urine Mucus (Occasional) /lpf Micro UA Comment Urine Culture Comments Imaging Data Radiologist's impression: Chest X-Ray 04/05/18 13:01 CONCLUSION: No acute intrathoracic disease. Abdomen/Pelvis CT 04/05/18 13:57 CONCLUSION: 1. There is diffuse enlargement and edema throughout most of the pancreas consistent with acute pancreatitis. There is also multiple stippled calcification throughout the entire pancreas consistent with chronic pancreatitis. There is diffuse dilatation of the pancreatic duct at 6 mm. 2. Tiny stone in the gallbladder. No definite biliary tract obstruction. 3. There is a loop of small bowel in a anterior abdominal wall hernia without definite obstruction at this time. Recommend correlation with patient's physical exam. 4. Small amount of free fluid deep in the pelvis. This is most likely related to patient's acute pancreatitis. Gallbladder Ultrasound 04/05/18 14:21 CONCLUSION: 1. Nodular hepatic contour suggestive of cirrhosis. Trace ascites near the inferior margin of the liver. 2. Prominent diffusely heterogeneous pancreas with pancreatic ductal dilatation. Findings are concerning for acute on chronic pancreatitis. Correlation with pancreatic enzymes is recommended. 3. Prominent common bile duct without focal lesion. This is likely related to inflammation of the pancreatic head although distal CBD is not sufficiently evaluated to exclude stone. MRCP examination may be performed as clinically warranted. Discharge Plan Discharge Disposition Patient Disposition: 30 Still Patient Discharge Condition Condition: Stable Discharge Details Diagnosis: Acute pancreatitis Physicians Team ED Provider: Tamir Pack Primary Care Provider: UNKNOWN, Attending Provider: Reymundo Valdez Other Providers: Alex Child Status ED Status: Admitted Patient
--- NOTE | 2018-04-05 16:19 | P.HP ---
History of Present Illness Primary Care Physician: UNKNOWN Chief Complaint: Abdominal pain History of Present Illness: Ms. Oh is a 42-year-old female with a history of TBI, abdominal surgery with bowel resection in July 2017 who presents to the emergency department due to epigastric pain radiating to her back. Her epigastric pain started two days ago. She had nausea, vomiting for 3 days but currently improved. Additionally, she complains of chronic abdominal pain in the last one month or so which has been worsening. She denies any fever but reports chills. No dysuria , hematuria. No changes in bowel habits. - Diagnosis (1) Acute pancreatitis Inpatient Certification: I certify that the inpatient services were ordered in accordance with Medicare regulations governing the order. This includes certification that hospital inpatient services are reasonable and necessary and in the case of services not specified as inpatient-only under 42 CFR 419.22(n), that they are appropriately provided as inpatient services in accordance to with the 2-midnight benchmark under 43 CFR 412.3(e) Estimated Total Length of Stay (Days): 3 Plans for Post Hospital Care: Home Review of Systems All other systems reviewed negative except as stated in HPI Constitutional: Reports chills, Reports weakness Gastrointestinal: Reports nausea, Reports vomiting PMFSH - History History Provided By: Patient - Medical History Medical History: Medical History (Last Reviewed 04/05/18 @ 19:22 by Tamir Pack DO) Traumatic brain injury - Surgical History Surgical History: Surgical History (Last Reviewed 04/05/18 @ 19:22 by Tamir Pack DO) H/O abdominal surgery H/O brain surgery History of orthopedic surgery - Tobacco History Second Hand Smoke Exposure: No Tobacco Use In Past 30 Days: No Smoking Status: Current every day smoker Tobacco Type: Cigarettes - Alcohol History How Often Do You Have a Drink Containing Alcohol: Monthly or less - Substance Use History Substance History: No History of Abuse - Substance Use Type Crack/Cocaine Status: Sustained Remission Route Used: Inhalation Frequency: $40 3X/WEEK Reason for Use: Feels Good, Socialization Comment: QUIT OVER 2.5 YEARS AGO - Travel History Recent Travel in the [place] Within the Last 8 Weeks: No Recent Travel Out of the Country Within the Last 8 Weeks: No - Immunization History Tetanus Immunization: Unsure Medications and Allergies Active Medications: Active Medications Acetaminophen (Tylenol) 650 mg PO Q4H PRN PRN Reason: Headache, fever, pain 1-5 Al Hydroxide/Mg Hydroxide (Milk Of Magnesia Liq) 30 ml PO Q12H PRN PRN Reason: Mild Constipation Bisacodyl (Dulcolax Supp) 10 mg RECTAL DAILY PRN PRN Reason: SEVERE CONSITIPATION Enoxaparin Sodium (Lovenox Inj) 40 mg SQ Q24H [facility] Sodium Chloride (Ns Inj) 1,000 mls @ 250 mls/hr IV.CONT .Q4H ALMA Stop: 04/06/18 14:44 Last Admin: 04/05/18 14:53 Dose: 100 mls/hr Lactulose (Lactulose Liq) 30 ml PO DAILY PRN PRN Reason: SEVERE CONSITIPATION Ondansetron HCl (Zofran Odt) 4 mg PO Q6H PRN PRN Reason: NAUSEA OR VOMITING Sennosides (Senokot) 17.2 mg PO Q12H PRN PRN Reason: Moderate Constipation Sodium Chloride (Ns Flush) 2 ml IV.FLUSH UNSCH PRN PRN Reason: FLUSH AFTER USING IV ACCESS Sodium Chloride (Ns Flush) 2 ml IV.FLUSH PRN PRN PRN Reason: FLUSH AFTER USING IV ACCESS Temazepam (Restoril) 15 mg PO HS PRN PRN Reason: INSOMNIA Allergies Allergy/AdvReac Type Severity Reaction Status Date / Time amoxicillin Allergy Severe Hives Verified 04/05/18 19:19 penicillin G Allergy Severe Hives Verified 04/05/18 19:19 Home Medications Medication Instructions Recorded Confirmed Type No Known Home Medications 04/05/18 04/05/18 History Exam Vital signs: Vital Signs 04/05/18 11:19 04/05/18 12:55 Temperature 98.5 F Pulse Rate 88 105 H Respiratory Rate 17 16 Blood Pressure 200/124 H 204/135 H Pulse Oximetry 97 97 Intake & Output 04/04/18 04/05/18 04/05/18 18:59 06:59 18:59 Weight 56.699 kg Narrative: GENERAL: This is a well-nourished, well-developed patient, in no apparent distress. SKIN: No rashes, ecchymoses or lesions. Warm and dry. HEAD: Atraumatic. Normocephalic. No temporal or scalp tenderness. EYES: Pupils equal round and reactive. No injection or drainage. ENT: Nose without bleeding, purulent drainage or septal hematoma. Airway patent. NECK: Trachea midline. No lymphadenopathy. Supple, nontender, no meningeal signs. CARDIOVASCULAR: Regular rate and rhythm without murmurs, gallops, or rubs. No JVD. RESPIRATORY: Clear to auscultation. Breath sounds equal bilaterally. No wheezes , rales, or rhonchi. GASTROINTESTINAL: Abdomen soft, tender to palpation, non-distended. MUSCULOSKELETAL: Extremities without clubbing, cyanosis, or edema. NEUROLOGICAL: Awake and alert. Cranial nerves II through XII intact. No focal neurological deficits. Normal speech. Results - Labs CBC & Chem 7: 04/05/18 12:56 04/05/18 12:56 Labs: Laboratory Results - last 24 hr 04/05/18 04/05/18 04/05/18 12:56 12:56 12:56 WBC 10.2 RBC 4.53 Hgb 14.4 Hct 42.3 MCV 93.4 MCH 31.9 MCHC 34.2 RDW 13.1 Plt Count 221 MPV 8.4 Neut % (Auto) 80.2 H Lymph % (Auto) 9.3 Crowley % (Auto) 9.3 H Eos % (Auto) 0.6 Baso % (Auto) 0.6 Neut # (Auto) 8.2 H Lymph # (Auto) 0.9 L Crowley # (Auto) 0.9 Eos # (Auto) 0.1 Baso # (Auto) 0.1 WBC Differential . Differential Comment Auto diff final PT INR APTT Sodium 136 Potassium 3.3 L Chloride 101 Carbon Dioxide 24.2 Anion Gap 11 BUN 8 Creatinine 0.39 L Estimated GFR Greater than 89 Random Glucose 98 Calcium 8.9 Total Bilirubin 0.5 AST 19 ALT 12 Alkaline Phosphatase 191 H Total Creatine Kinase 32 Troponin I Less than 0.02 L Total Protein 8.2 Albumin 3.4 Lipase 50730 H Urine Color Kati Urine Clarity Cloudy H Urine pH 5.0 Ur Specific [place] 1.027 Urine Protein 100 H Urine Glucose (UA) Negative Urine Ketones 20 Urine Occult Blood Small H Urine Nitrate Negative Urine Bilirubin Negative Urine Urobilinogen 4 or greater Ur Leukocyte Esterase Negative Urine RBC 11 H Urine WBC 4 Ur Squamous Epith Cells 10 Calcium Oxalate Crystal Occasional H Urine Bacteria Rare H Hyaline Casts 74 Urine Mucus Many H Micro UA Comment Culture not ind Urine Culture Comments Culture not ind 04/05/18 04/05/18 04/05/18 12:56 12:56 13:10 WBC RBC Hgb Hct MCV MCH MCHC RDW Plt Count MPV Neut % (Auto) Lymph % (Auto) Crowley % (Auto) Eos % (Auto) Baso % (Auto) Neut # (Auto) Lymph # (Auto) Crowley # (Auto) Eos # (Auto) Baso # (Auto) WBC Differential Differential Comment PT 10.9 INR 1.1 APTT 27.6 Sodium Potassium Chloride Carbon Dioxide Anion Gap BUN Creatinine Estimated GFR Random Glucose Calcium Total Bilirubin AST ALT Alkaline Phosphatase Total Creatine Kinase Cancelled Troponin I Cancelled Total Protein Albumin Lipase Urine Color Urine Clarity Urine pH Ur Specific [place] Urine Protein Urine Glucose (UA) Urine Ketones Urine Occult Blood Urine Nitrate Urine Bilirubin Urine Urobilinogen Ur Leukocyte Esterase Urine RBC Urine WBC Ur Squamous Epith Cells Calcium Oxalate Crystal Urine Bacteria Hyaline Casts Urine Mucus Micro UA Comment Urine Culture Comments - Imaging Impressions Chest X-Ray 04/05/18 13:01 CONCLUSION: No acute intrathoracic disease. Caprini VTE Risk Assessment Caprini VTE Risk Assessment: Moderate/High Risk (score >= 2) Caprini Risk Assessment Model: Point Value = 1 Point Value = 2 Point Value = 3 Point Value = 5 Age 41-60 Minor surgery BMI > 25 kg/m2 Swollen legs Varicose veins or History of unexplained or recurrent spontaneous Oral contraceptives or hormone replacement Sepsis (< 1 month) Serious lung disease, including pneumonia (< 1 month) Abnormal pulmonary function Acute myocardial infarction Congestive heart failure (< 1 month) History of inflammatory bowel disease Medical patient at bed rest Age 61-74 Arthroscopic surgery Major open surgery (> 45 min) Laparoscopic surgery (> 45 min) Malignancy Confined to bed (> 72 hours) Immobilizing plaster cast Central venous access Age >= 75 History of VTE Family history of VTE Factor V Leiden Prothrombin [id number] Lupus anticoagulant Anticardiolipin antibodies Elevated serum homocysteine Heparin-induced thrombocytopenia Other congenital or acquired thrombophilia Stroke (< 1 month) Elective arthroplasty Hip, pelvis, or leg fracture Acute spinal cord injury (< 1 month) Prophylaxis Regimen: Total Risk Factor Score Risk Level Prophylaxis Regimen 0-1 Low Early ambulation 2 Moderate Order ONE of the following: *Sequential Compression Device (SCD) *Heparin 5000 units SQ BID 3-4 Higher Order ONE of the following medications: *Heparin 5000 units SQ TID *Enoxaparin/Lovenox 40 mg SQ daily (WT < 150 kg, CrCl > 30 mL/min) *Enoxaparin/Lovenox 30 mg SQ daily (WT < 150 kg, CrCl > 10-29 mL/min) *Enoxaparin/Lovenox 30 mg SQ BID (WT < 150 kg, CrCl > 30 mL/min) AND/OR *Sequential Compression Device (SCD) 5 or more Highest Order ONE of the following medications: *Heparin 5000 units SQ TID (Preferred with Epidurals) *Enoxaparin/Lovenox 40 mg SQ daily (WT < 150 kg, CrCl > 30 mL/min) *Enoxaparin/Lovenox 30 mg SQ daily (WT < 150 kg, CrCl > 10-29 mL/min) *Enoxaparin/Lovenox 30 mg SQ BID (WT < 150 kg, CrCl > 30 mL/min) AND *Sequential Compression Device (SCD) Assessment and Plan - Assessment (1) Acute pancreatitis Code(s): K85.90 - Acute pancreatitis without necrosis or infection, unspecified Status: Acute - Plan Ms. Oh is a 42-year-old female with a history of TBI who presents to the emergency department due to abdominal pain. Her lipase was over 14,000. Alkaline phosphatase 191. Patient underwent gallbladder ultrasound as well as abdominal and pelvis CT scan. Acute pancreatitis -Start normal saline at 250 cc/h for 24 hours. -Imaging studies indicate acute on chronic pancreatitis. -Alk phos is elevated. Distal CBD stone was not excluded on GB US. -Will consult GI for further eval including need for MRCP/ERCP -Acetaminophen, Percocet, Dilaudid IV PRN for pain. - Bowel regimen in place. Hypertension -BP was in the 200 range systolic, likely due to pain -After patient received pain meds, BP improved. -Will keep clonidine 0.1mg Q6hrs PRN Mild Hypokalemia - Potassium 3.3. Will replace with PO KCL once patient is able to tolerate PO better. Hx of TBI Hx of Abdominal surgery with bowel resection - No acute concerns. Full code. Lovenox 40mg Qday. (1) Acute pancreatitis Qualifiers: Pancreatitis type: unspecified pancreatitis type Acute pancreatitis complication: unspecified Qualified Code(s): K85.90 - Acute pancreatitis without necrosis or infection, unspecified
--- NOTE | 2018-04-05 16:20 | US ---
EXAM DATE: 04/05/2018 3:40 PM EDT AGE/SEX: 42 years / Female INDICATIONS: Gallstones. CLINICAL DATA: This is the patient's initial encounter. Patient reports that signs and/or symptoms h ave been present for 1 week and indicates a pain score of 2/10. MEDICAL/SURGICAL HISTORY: . Brain injury. . Abdominal surgery. Brain surgery. Orthopedic surgery. [place] [facility] [place] W/O CONTRAST, 05/14/2017. . MEASUREMENTS: Liver:__ 15.7 cm. Common Bile Duct:__ 17mm. FINDINGS: Liver: Liver demonstrates normal echogenicity but demonstrates slight nodular contour. Trace ascites near the inferior margin of the liver. Portal Vein: Hepatopedal flow seen in portal vein. Common Duct: Common bile duct is distended measuring up to 17 mm without a focal abnormality. Previo usly on CT exam the common bile duct is also dilated although not as prominently measuring up to 9 mm . Gallbladder: Demonstrates no wall thickening or pericholecystic fluid. No stones visualized. Pancreas: Diffusely heterogeneous in echogenicity. Right Kidney: Normal echotexture and cortical thickness. No mass or hydronephrosis. Other: None. CONCLUSION: 1. Nodular hepatic contour suggestive of cirrhosis. Trace ascites near the inferior margin of the li stevo. 2. Prominent diffusely heterogeneous pancreas with pancreatic ductal dilatation. Findings are concer claire for acute on chronic pancreatitis. Correlation with pancreatic enzymes is recommended. 3. Prominent common bile duct without focal lesion. This is likely related to inflammation of the pa ncreatic head although distal CBD is not sufficiently evaluated to exclude stone. MRCP examination ma y be performed as clinically warranted. Electronically signed by: Keny Noble MD 04/05/2018 4:18 PM EDT
--- NOTE | 2018-04-05 16:22 | CT ---
EXAM DATE: 04/05/2018 3:48 PM EDT AGE/SEX: 42 years / Female INDICATIONS: Abdomen pain with difficulty urinating CLINICAL DATA: This is the patient's initial encounter. Patient reports that signs and symptoms have been present for 1 day and indicates a pain score of 5/10. MEDICAL/SURGICAL HISTORY: Pancreatitis. . Abdominal surgeries and brain surgeries ORAL CONTRAST: No oral contrast ingested. RADIATION DOSE: 6.64 CTDI (mGy) COMPARISON: [facility] – [place], CT ABDOMEN & PELVIS W CONTRAST, 05/23/2017. . TECHNIQUE: Multiple contiguous axial images were obtained through the abdomen and pelvis following b olus infusion of 97 ml Omnipaque 350 (iohexol) nonionic water-soluble contrast as a single exam dos e. No oral contrast ingested. Using automated exposure control and adjustment of the mA and/or kV ac cording to patient size, radiation dose was kept as low as reasonably achievable to obtain optimal di agnostic quality images. DICOM format image data is available electronically for review and comparis on. FINDINGS: Lower Lungs: The visualized lower lungs are clear. Liver: The liver has a homogeneous density without space-occupying lesion. There is no dilation of th e biliary tree. There appears to be a tiny stone in the gallbladder. Gallbladder is mildly prominent. Spleen: Homogeneous density without enlargement. Pancreas: There is diffuse inflammatory changes involving most of the pancreas from the head through to the mid body characteristic of pancreatitis. There is dilated pancreatic duct at 6 mm. There are stable calcifications throughout the entire pancreas consistent with chronic pancreatitis. Kidneys: Normal in size and shape. No evidence of mass or hydronephrosis. Adrenal Glands: Unremarkable. Aorta: The aorta and proximal iliac vessels are grossly unremarkable without aneurysmal dilation. Bowel/Mesentery: The bowel loops are grossly unremarkable. The cecum and sigmoid colon have a normal configuration. There is a loop of small bowel seen in a ventral anterior abdominal wall hernia witho ut definite obstruction. There is stool throughout the colon. There is a small amount of free fluid d eep in the pelvis. Abdominal Wall: There is a midline anterior abdominal wall hernia containing a loop of small bowel w ithout definite obstruction at this time. Retroperitoneum: No evidence of adenopathy in the retrocrural, para-aortic, or deep pelvic regions. Bladder: Contours are smooth. Reproductive Organs: No abnormal masses or calcifications seen. Inguinal: The inguinal region is unremarkable without evidence of adenopathy. Bony Structures: Mild degenerative changes. CONCLUSION: 1. There is diffuse enlargement and edema throughout most of the pancreas consistent with acute panc reatitis. There is also multiple stippled calcification throughout the entire pancreas consistent wit h chronic pancreatitis. There is diffuse dilatation of the pancreatic duct at 6 mm. 2. Tiny stone in the gallbladder. No definite biliary tract obstruction. 3. There is a loop of small bowel in a anterior abdominal wall hernia without definite obstruction a t this time. Recommend correlation with patient's physical exam. 4. Small amount of free fluid deep in the pelvis. This is most likely related to patient's acute paz creatitis. Electronically signed by: Sandro London MD 04/05/2018 4:21 PM EDT
[2018-04-05] MEDS: HYDROmorphone PF Inj 2 MG/ML Vial IV.PUSH PRN ×2 (18:15→22:18)
[2018-04-05] MEDS: Enoxaparin Inj 40 MG/0.4 ML Syringe SQ SCH (18:16)
[2018-04-05] MEDS: Acetaminophen 325 MG Tablet PO PRN (21:01)
[2018-04-05] MEDS: Temazepam 15 MG Capsule PO PRN (22:19)
[2018-04-06] MEDS: Sod Chloride 0.9% Inj 1,000 ML IV.CONT SCH ×3 (00:53→16:25)
[2018-04-06] MEDS: HYDROmorphone PF Inj 2 MG/ML Vial IV.PUSH PRN ×6 (03:12→21:11)
[2018-04-06 04:44] LABS: Baso # (Auto) 0.1 th/mm3 (0.0-0.2); Baso % (Auto) 1.2 % (0.0-2.0); Eos # (Auto) 0.2 th/mm3 (0.0-0.4); Eos % (Auto) 2.5 % (0.0-4.0); Hematocrit 36.4 % (35.0-46.0); Hemoglobin 12.2 gm/dL (11.6-15.3); Lymph # (Auto) 1.9 th/mm3 (1.0-4.8); Lymph % (Auto) 26.2 % (9.0-44.0); Mean Corpuscular HGB Conc 33.4 % (32.0-36.0); Mean Corpuscular Hemoglobin 31.7 pg (27.0-34.0); Mean Corpuscular Volume 94.8 fL (80.0-100.0); Mean Platelet Volume 8.9 fL (7.0-11.0); Mono # (Auto) 0.9 th/mm3 (0.0-0.9); Mono % (Auto) 13.1 % (0.0-8.0); Neut # (Auto) 4.1 th/mm3 (1.8-7.7); Platelet Count 216 th/mm3 (150-450); Red Blood Count 3.84 mil/mm3 (4.00-5.30); Red Cell Distribution Width 12.8 % (11.6-17.2); White Blood Count 7.1 th/mm3 (4.0-11.0)
[2018-04-06 05:10] LABS: Anion Gap 11 meq/L (5-15); Blood Urea Nitrogen 8 mg/dL (7-18); Calcium 8.6 mg/dL (8.5-10.1); Chloride 105 meq/L (98-107); Glomerular Filtration Rate Greater Than 89 mL/min (>89); Glucose,Random 68 mg/dL (74-106); Potassium 3.4 meq/L (3.5-5.1); Sodium 139 meq/L (136-145)
--- NOTE | 2018-04-06 11:25 | P.CONGI ---
History of Present Illness Consult date: 04/06/18 Consult reason: Pancreatitis Chief complaint: acute pancreatitis History of Present Illness: This is a 42 yo F with history of pancreatitis with previous pseudocysts, history of perforated viscus septic abscess S/P exploratory laparotomy with washout and small bowel resection with primary anastomosis last March, and ETOH abuse who presented to the ER yesterday with complaints of abdominal pain, nausea, and vomiting. Pt reports intermittent abdominal pains since September of this year but states pain became unbearable and constant since yesterday. Describes pain as aching, located throughout her entire abdomen. Also complaining of abdominal swelling and feeling bloated. Intermittent nausea and vomiting for a few weeks, denies hematemesis and coffee ground emesis. Pt has previously been seen by our service here and Dr. Baez at [facility]. ERCP done on Jun 2017 --> dilated CBD with questionable tiny filling defect, sphincterotomy performed with flow of clear yellow bile. Balloon sweep revealed removal of a small amount of biliary sludge. Visualized portions of the stomach and duodenum were unremarkable. Pt denies known history of liver issues , however previous imaging consistent with cirrhosis. Despite recurrent pancreatitis pt continues to drink alcohol, states last drink was 5 days ago, prior to that was drinking 3-4 liquor drinks a day. Smokes 10-12 cigarettes a day. Denies illicit drug use, history of marijuana use but denies any continued use. Denies history of IV drug use. One tattoo to right leg done at a friends house. Denies high risk sexual behaviors. <Aubree Junior - Last Filed: 04/06/18 12:02> Review of Systems Gastrointestinal: Reports abdominal pain, Reports bloating, Reports nausea, Reports vomiting, Denies change in bowel habits, Denies vomiting blood <Aubree Junior - Last Filed: 04/06/18 12:02> PMFSH - History History Provided By: Patient - Medical History Medical History: Medical History (Last Reviewed 04/05/18 @ 19:22 by Tamir Pack DO) Traumatic brain injury - Surgical History Surgical History: Surgical History (Last Reviewed 04/05/18 @ 19:22 by Tamir Pack DO) H/O abdominal surgery H/O brain surgery History of orthopedic surgery - Tobacco History Second Hand Smoke Exposure: No Tobacco Use In Past 30 Days: No Smoking Status: Current every day smoker Tobacco Type: Cigarettes - Alcohol History How Often Do You Have a Drink Containing Alcohol: Monthly or less - Substance Use History Substance History: No History of Abuse - Substance Use Type Crack/Cocaine Status: Sustained Remission Route Used: Inhalation Frequency: $40 3X/WEEK Reason for Use: Feels Good, Socialization Comment: QUIT OVER 2.5 YEARS AGO - Travel History Recent Travel in the [place] Within the Last 8 Weeks: No Recent Travel Out of the Country Within the Last 8 Weeks: No - Immunization History Tetanus Immunization: Unsure Hx Influenza Vaccine This Season: Yes <Aubree Junior - Last Filed: 04/06/18 12:02> - Medical History Medical History: Medical History (Last Reviewed 04/05/18 @ 19:22 by Tamir Pack DO) Traumatic brain injury - Surgical History Surgical History: Surgical History (Last Reviewed 04/05/18 @ 19:22 by Tamir Pack DO) H/O abdominal surgery H/O brain surgery History of orthopedic surgery <Alex Child - Last Filed: 04/06/18 23:08> Medications and Allergies Active Medications: Active Medications Acetaminophen (Tylenol) 650 mg PO Q4H PRN PRN Reason: Headache, fever, pain 1-3 Last Admin: 04/05/18 21:01 Dose: 650 mg Al Hydroxide/Mg Hydroxide (Milk Of Magnarmani Liq) 30 ml PO Q12H PRN PRN Reason: Mild Constipation Bisacodyl (Dulcolax Supp) 10 mg RECTAL DAILY PRN PRN Reason: SEVERE CONSITIPATION Clonidine HCl (Catapres) 0.1 mg PO Q6H PRN PRN Reason: systolic BP > 170 Enoxaparin Sodium (Lovenox Inj) 40 mg SQ Q24H ALMA Last Admin: 04/05/18 18:16 Dose: 40 mg Hydromorphone HCl (Dilaudid Pf Inj) 1 mg IV.PUSH Q4H PRN PRN Reason: PAIN SCALE 6 TO 10 Last Admin: 04/06/18 08:31 Dose: 1 mg Sodium Chloride (Ns Inj) 1,000 mls @ 250 mls/hr IV.CONT .Q4H ALMA Stop: 04/06/18 14:44 Last Admin: 04/06/18 05:21 Dose: 250 mls/hr Lactulose (Lactulose Liq) 30 ml PO DAILY PRN PRN Reason: SEVERE CONSITIPATION Nicotine (Habitrol 21 Mg Patch.24 Hr) 1 patch T-DERMAL DAILY [facility] Last Admin: 04/06/18 08:22 Dose: 1 patch Ondansetron HCl (Zofran Odt) 4 mg PO Q6H PRN PRN Reason: NAUSEA OR VOMITING Oxycodone/Acetaminophen (Percocet 5/325 Mg) 1 tab PO Q6H PRN PRN Reason: Pain Scale 4 To 5 Moderate Last Admin: 04/05/18 18:16 Dose: 1 tab Sennosides (Senokot) 17.2 mg PO Q12H PRN PRN Reason: Moderate Constipation Sodium Chloride (Ns Flush) 2 ml IV.FLUSH UNSCH PRN PRN Reason: FLUSH AFTER USING IV ACCESS Last Admin: 04/05/18 20:50 Dose: 2 ml Sodium Chloride (Ns Flush) 2 ml IV.FLUSH PRN PRN PRN Reason: FLUSH AFTER USING IV ACCESS Temazepam (Restoril) 15 mg PO HS PRN PRN Reason: INSOMNIA Last Admin: 04/05/18 22:19 Dose: 15 mg <Aubree Junior - Last Filed: 04/06/18 12:02> Active Medications: Active Medications Acetaminophen (Tylenol) 650 mg PO Q4H PRN PRN Reason: Headache, fever, pain 1-3 Last Admin: 04/06/18 21:11 Dose: 650 mg Al Hydroxide/Mg Hydroxide (Milk Of Magnesia Liq) 30 ml PO Q12H PRN PRN Reason: Mild Constipation Bisacodyl (Dulcolax Supp) 10 mg RECTAL DAILY PRN PRN Reason: SEVERE CONSITIPATION Clonidine HCl (Catapres) 0.1 mg PO Q6H PRN PRN Reason: systolic BP > 170 Enoxaparin Sodium (Lovenox Inj) 40 mg SQ Q24H ALMA Last Admin: 04/06/18 17:19 Dose: 40 mg Flumazenil (Romazecon Inj) 0.2 mg IV.PUSH Q1M PRN PRN Reason: OVERSEDATION Haloperidol Lactate (Haldol Inj) 1 mg IV.PUSH Q15M PRN PRN Reason: for severe agitation Potassium Chloride 10 meq/ (Sodium Chloride) 1,005 mls @ 200 mls/hr IV.CONT .Q5H2M [facility] Stop: 04/07/18 20:00 Lactulose (Lactulose Liq) 30 ml PO DAILY PRN PRN Reason: SEVERE CONSITIPATION Lorazepam (Ativan) 2 mg PO Q2H PRN PRN Reason: for CIWA 11-14 Lorazepam (Ativan Inj) 2 mg IV.PUSH Q2H PRN PRN Reason: for CIWA 11-14 Lorazepam (Ativan Inj) 2 mg IV.PUSH Q1H PRN PRN Reason: for CIWA 15-20 Lorazepam (Ativan Inj) 2 mg IV.PUSH Q15M PRN PRN Reason: for CIWA > 20 Lorazepam (Ativan Inj) 1 mg IV.PUSH Q4H PRN PRN Reason: for CIWA 8-10 Lorazepam (Ativan) 1 mg PO Q4H PRN PRN Reason: for CIWA 8-10 Morphine Sulfate (Morphine Inj) 3 mg IV.PUSH Q4H PRN PRN Reason: PAIN SCALE 6 TO 10 Nicotine (Habitrol 21 Mg Patch.24 Hr) 1 patch T-DERMAL DAILY [facility] Last Admin: 04/06/18 08:22 Dose: 1 patch Ondansetron HCl (Zofran Odt) 4 mg PO Q6H PRN PRN Reason: NAUSEA OR VOMITING Oxycodone/Acetaminophen (Percocet 5/325 Mg) 1 tab PO Q6H PRN PRN Reason: Pain Scale 4 To 5 Moderate Last Admin: 04/05/18 18:16 Dose: 1 tab Sennosides (Senokot) 17.2 mg PO Q12H PRN PRN Reason: Moderate Constipation Sodium Chloride (Ns Flush) 2 ml IV.FLUSH UNSCH PRN PRN Reason: FLUSH AFTER USING IV ACCESS Last Admin: 04/05/18 20:50 Dose: 2 ml Sodium Chloride (Ns Flush) 2 ml IV.FLUSH PRN PRN PRN Reason: FLUSH AFTER USING IV ACCESS Temazepam (Restoril) 15 mg PO HS PRN PRN Reason: INSOMNIA Last Admin: 04/05/18 22:19 Dose: 15 mg <Alex Child E - Last Filed: 04/06/18 23:08> Allergies Allergy/AdvReac Type Severity Reaction Status Date / Time amoxicillin Allergy Severe Hives Verified 07/18/18 19:19 penicillin G Allergy Severe Hives Verified 04/05/18 19:19 Home Medications Medication Instructions Recorded Confirmed Type No Known Home Medications 04/05/18 04/05/18 History Exam Vital signs: Vital Signs 04/05/18 12:55 04/05/18 18:18 04/05/18 19:16 Temperature Pulse Rate 105 H 98 H 80 Respiratory Rate 16 16 Blood Pressure 204/135 H 210/136 H Pulse Oximetry 97 04/05/18 19:17 04/05/18 19:18 04/05/18 20:00 Temperature 97.8 F 97.5 F L Pulse Rate 80 92 H Respiratory Rate 17 20 Blood Pressure 167/123 H 161/101 H Pulse Oximetry 98 98 04/06/18 00:00 04/06/18 04:00 04/06/18 04:23 Temperature 97.5 F L 97.6 F Pulse Rate 84 71 Respiratory Rate 20 18 Blood Pressure 149/93 H 140/92 H Pulse Oximetry 97 97 99 04/06/18 08:00 04/06/18 09:00 Temperature 98.1 F Pulse Rate 90 90 Respiratory Rate 19 Blood Pressure 169/103 H Pulse Oximetry 94 L Intake & Output 04/05/18 04/06/18 04/06/18 18:59 06:59 18:59 Intake Total 1999 Balance 1999 Weight 56.699 kg 52.8 kg Intake: IV 1999 NS Inj 1,000 ML @ 250 mls/hr IV 1999 .CONT .Q4H [facility] Rx#:[id number] Other: Weight On Admission 52.8 kg - Constitutional no acute distress - Routine HEENT Exam Head: Present: normocephalic, atraumatic - Routine Respiratory Exam Absent: accessory muscle use - Routine Cardiovascular Exam Present: RRR - Routine Abdominal Exam Present: soft, normoactive bowel sounds, tenderness, distended. Absent: rebound , guarding, firm - Routine Skin Exam Present: dry, warm - Routine Neurological Exam Present: alert, oriented X3 <Aubree Junior - Last Filed: 04/06/18 12:02> Vital signs: Vital Signs 04/06/18 00:00 04/06/18 04:00 04/06/18 04:23 Temperature 97.5 F L 97.6 F Pulse Rate 84 71 Respiratory Rate 20 18 Blood Pressure 149/93 H 140/92 H Pulse Oximetry 97 97 99 04/06/18 08:00 04/06/18 09:00 04/06/18 12:00 Temperature 98.1 F 97.7 F Pulse Rate 90 90 81 Respiratory Rate 19 19 Blood Pressure 169/103 H 169/101 H Pulse Oximetry 94 L 97 04/06/18 13:56 04/06/18 16:00 04/06/18 20:00 Temperature 97.2 F L 97.8 F Pulse Rate 91 H 87 Respiratory Rate 19 18 Blood Pressure 176/105 H 164/105 H Pulse Oximetry 96 98 97 Intake & Output 04/06/18 04/06/18 04/07/18 06:59 18:59 06:59 Intake Total 1999 1000 / 1000 Balance 1999 1000 / 1000 Weight 52.8 kg Intake: IV 1999 1000 / 1000 NS Inj 1,000 ML @ 250 mls/hr IV 1999 1000 / 1000 .CONT .Q4H [facility] Rx#:[id number] Oral 0 / 0 Other: # Voids 4 Weight On Admission 52.8 kg <Alex Child E - Last Filed: 04/06/18 23:08> Results - Labs CBC & Chem 7: 04/06/18 04:10 04/06/18 04:15 Labs: Laboratory Results - last 24 hr 04/05/18 04/05/18 04/05/18 12:56 12:56 12:56 WBC 10.2 RBC 4.53 Hgb 14.4 Hct 42.3 MCV 93.4 MCH 31.9 MCHC 34.2 RDW 13.1 Plt Count 221 MPV 8.4 Neut % (Auto) 80.2 H Lymph % (Auto) 9.3 [place] % (Auto) 9.3 H Eos % (Auto) 0.6 Baso % (Auto) 0.6 Neut # (Auto) 8.2 H Lymph # (Auto) 0.9 L [place] # (Auto) 0.9 Eos # (Auto) 0.1 Baso # (Auto) 0.1 WBC Differential . Differential Comment Auto diff final PT INR APTT Sodium 136 Potassium 3.3 L Chloride 101 Carbon Dioxide 24.2 Anion Gap 11 BUN 8 Creatinine 0.39 L Estimated GFR Greater than 89 Random Glucose 98 Lactic Acid Calcium 8.9 Total Bilirubin 0.5 AST 19 ALT 12 Alkaline Phosphatase 191 H Total Creatine Kinase 32 Troponin I Less than 0.02 L Total Protein 8.2 Albumin 3.4 Triglycerides Lipase 80936 H Urine Color [place] Urine Clarity Cloudy H Urine pH 5.0 Ur Specific [place] 1.027 Urine Protein 100 H Urine Glucose (UA) Negative Urine Ketones 20 Urine Occult Blood Small H Urine Nitrate Negative Urine Bilirubin Negative Urine Urobilinogen 4 or greater Ur Leukocyte Esterase Negative Urine RBC 11 H Urine WBC 4 Ur Squamous Epith Cells 10 Calcium Oxalate Crystal Occasional H Urine Bacteria Rare H Hyaline Casts 74 Urine Mucus Many H Micro UA Comment Culture not ind Urine Culture Comments Culture not ind 04/05/18 04/05/18 04/05/18 12:56 12:56 12:56 WBC RBC Hgb Hct MCV MCH MCHC RDW Plt Count MPV Neut % (Auto) Lymph % (Auto) [place] % (Auto) Eos % (Auto) Baso % (Auto) Neut # (Auto) Lymph # (Auto) [place] # (Auto) Eos # (Auto) Baso # (Auto) WBC Differential Differential Comment PT INR APTT Sodium Potassium Chloride Carbon Dioxide Anion Gap BUN Creatinine Estimated GFR Random Glucose Lactic Acid Calcium Total Bilirubin AST ALT Alkaline Phosphatase Total Creatine Kinase Cancelled Troponin I Cancelled Total Protein Albumin Triglycerides 139 Lipase Urine Color Urine Clarity Urine pH Ur Specific [place] Urine Protein Urine Glucose (UA) Urine Ketones Urine Occult Blood Urine Nitrate Urine Bilirubin Urine Urobilinogen Ur Leukocyte Esterase Urine RBC Urine WBC Ur Squamous Epith Cells Calcium Oxalate Crystal Urine Bacteria Hyaline Casts Urine Mucus Micro UA Comment Urine Culture Comments 04/05/18 04/06/18 04/06/18 13:10 04:10 04:15 WBC 7.1 RBC 3.84 L Hgb 12.2 D Hct 36.4 MCV 94.8 MCH 31.7 MCHC 33.4 RDW 12.8 Plt Count 216 MPV 8.9 Neut % (Auto) 57.0 Lymph % (Auto) 26.2 [place] % (Auto) 13.1 H Eos % (Auto) 2.5 Baso % (Auto) 1.2 Neut # (Auto) 4.1 Lymph # (Auto) 1.9 [place] # (Auto) 0.9 Eos # (Auto) 0.2 Baso # (Auto) 0.1 WBC Differential . Differential Comment Auto diff final PT 10.9 INR 1.1 APTT 27.6 Sodium 139 Potassium 3.4 L Chloride 105 Carbon Dioxide 23.0 Anion Gap 11 BUN 8 Creatinine 0.32 L Estimated GFR Greater than 89 Random Glucose 68 L Lactic Acid Calcium 8.6 Total Bilirubin AST ALT Alkaline Phosphatase Total Creatine Kinase Troponin I Total Protein Albumin Triglycerides Lipase Urine Color Urine Clarity Urine pH Ur Specific [place] Urine Protein Urine Glucose (UA) Urine Ketones Urine Occult Blood Urine Nitrate Urine Bilirubin Urine Urobilinogen Ur Leukocyte Esterase Urine RBC Urine WBC Ur Squamous Epith Cells Calcium Oxalate Crystal Urine Bacteria Hyaline Casts Urine Mucus Micro UA Comment Urine Culture Comments 04/06/18 04:18 WBC RBC Hgb Hct MCV MCH MCHC RDW Plt Count MPV Neut % (Auto) Lymph % (Auto) [place] % (Auto) Eos % (Auto) Baso % (Auto) Neut # (Auto) Lymph # (Auto) [place] # (Auto) Eos # (Auto) Baso # (Auto) WBC Differential Differential Comment PT INR APTT Sodium Potassium Chloride Carbon Dioxide Anion Gap BUN Creatinine Estimated GFR Random Glucose Lactic Acid 0.6 Calcium Total Bilirubin AST ALT Alkaline Phosphatase Total Creatine Kinase Troponin I Total Protein Albumin Triglycerides Lipase Urine Color Urine Clarity Urine pH Ur Specific [place] Urine Protein Urine Glucose (UA) Urine Ketones Urine Occult Blood Urine Nitrate Urine Bilirubin Urine Urobilinogen Ur Leukocyte Esterase Urine RBC Urine WBC Ur Squamous Epith Cells Calcium Oxalate Crystal Urine Bacteria Hyaline Casts Urine Mucus Micro UA Comment Urine Culture Comments - Imaging Impressions Chest X-Ray 04/05/18 13:01 CONCLUSION: No acute intrathoracic disease. Abdomen/Pelvis CT 04/05/18 13:57 CONCLUSION: 1. There is diffuse enlargement and edema throughout most of the pancreas consistent with acute pancreatitis. There is also multiple stippled calcification throughout the entire pancreas consistent with chronic pancreatitis. There is diffuse dilatation of the pancreatic duct at 6 mm. 2. Tiny stone in the gallbladder. No definite biliary tract obstruction. 3. There is a loop of small bowel in a anterior abdominal wall hernia without definite obstruction at this time. Recommend correlation with patient's physical exam. 4. Small amount of free fluid deep in the pelvis. This is most likely related to patient's acute pancreatitis. Gallbladder Ultrasound 04/05/18 14:21 CONCLUSION: 1. Nodular hepatic contour suggestive of cirrhosis. Trace ascites near the inferior margin of the liver. 2. Prominent diffusely heterogeneous pancreas with pancreatic ductal dilatation. Findings are concerning for acute on chronic pancreatitis. Correlation with pancreatic enzymes is recommended. 3. Prominent common bile duct without focal lesion. This is likely related to inflammation of the pancreatic head although distal CBD is not sufficiently evaluated to exclude stone. MRCP examination may be performed as clinically warranted. <Aubree Junior - Last Filed: 04/06/18 12:02> - Labs CBC & Chem 7: 04/06/18 04:10 04/06/18 04:15 Labs: Laboratory Results - last 24 hr 04/06/18 04/06/18 04/06/18 04:10 04:15 04:18 WBC 7.1 RBC 3.84 L Hgb 12.2 D Hct 36.4 MCV 94.8 MCH 31.7 MCHC 33.4 RDW 12.8 Plt Count 216 MPV 8.9 Neut % (Auto) 57.0 Lymph % (Auto) 26.2 [place] % (Auto) 13.1 H Eos % (Auto) 2.5 Baso % (Auto) 1.2 Neut # (Auto) 4.1 Lymph # (Auto) 1.9 [place] # (Auto) 0.9 Eos # (Auto) 0.2 Baso # (Auto) 0.1 WBC Differential . Differential Comment Auto diff final Sodium 139 Potassium 3.4 L Chloride 105 Carbon Dioxide 23.0 Anion Gap 11 BUN 8 Creatinine 0.32 L Estimated GFR Greater than 89 Random Glucose 68 L Lactic Acid 0.6 Calcium 8.6 - Imaging Impressions Cholangiopancreatography MRI 04/06/18 00:00 CONCLUSION: 1. Findings consistent with acute on chronic pancreatitis without choledocholithiasis or pseudocyst. The common bile duct and pancreatic duct are dilated with tapering at the level of the pancreatic head. Following resolution of the patient's acute pancreatitis consideration should be made to MRI of the pancreas with and without gadolinium to further assess for any underlying lesion. 2. Small volume ascites. <Alex Child - Last Filed: 04/06/18 23:08> Assessment and Plan (1) Acute on chronic pancreatitis Status: Acute Code(s): K85.90 - Acute pancreatitis without necrosis or infection, unspecified; K86.1 - Other chronic pancreatitis - Plan Assessment: - Acute on chronic pancreatitis secondary to ETOH abuse, with history of pancreatic pseudocysts. Despite previous hospitalization for pancreatitis and advice for alcohol cessation, pt continues to drink on a daily basis. States last ETOH was 5 days ago, was previously drinking 3-4 glasses of liquor daily. History of pseudocysts, was noted to have an anterior abdominal fluid collection/abscess that was drained 06/23 by IR- unclear if this was a pseudocyst. Pt was advised to have outpatient EUS, however lost her insurance and has not followed up in the office. Complaining of abdominal pain, generalized, intermittent since September but constant since yesterday. Described as aching. Associated nausea and vomiting for a few weeks. US gallbladder --> Nodular hepatic contour suggestive of cirrhosis. Trace ascites near the inferior margin of the liver. Prominent diffusely heterogeneous pancreas with pancreatic ductal dilatation. Findings are concerning for acute on chronic pancreatitis. Prominent common bile duct without focal lesion. Ct abdomen and pelvis W IV contrast --> There is diffuse enlargement and edema throughout most of the pancreas consistent with acute pancreatitis. There is also multiple stippled calcification throughout the entire pancreas consistent with chronic pancreatitis. There is diffuse dilatation of the pancreatic duct at 6 mm. Tiny stone in the gallbladder. No definite biliary tract obstruction. There is a loop of small bowel in a anterior abdominal wall hernia without definite obstruction at this time. Small amount of free fluid deep in the pelvis. This is most likely related to patient's acute pancreatitis. Lipase-14,223 Alk phos-191 AST-19 ALT-12 T bili-0.5 - Cirrhosis- Denies known history of liver issues, however previous imaging is consistent with cirrhosis. ETOH abuse. Denies history of IV drug use. Tattoo to right leg, done at a friends house. Denies high risk sexual behaviors. Plan: MRCP IVF NPO Monitor labs Pain control Antiemetics PRN Needs to stop drinking alcohol Avoid hepatotoxins Further recommendations pending MRCP results Pt has been seen and examined by myself and Dr. Child and this note is written on his behalf <Aubree Junior - Last Filed: 04/06/18 12:02> (1) Acute on chronic pancreatitis Status: Acute Code(s): K85.90 - Acute pancreatitis without necrosis or infection, unspecified; K86.1 - Other chronic pancreatitis - Attending Attestation Patient seen and examined Agree with above Continue with current supportive care Monitor labs MRCP basically unremarkable for choledocholithiasis at this point but confirms pancreatitis Complete alcohol abstinence <Alex Child E - Last Filed: 04/06/18 23:08>
--- NOTE | 2018-04-06 11:31 | P.PNIM ---
Subjective Interval history: Mrs. Oh was afebrile with intermittent HTN overnight. Patient reports continued abdominal pain which she describes as improving; she is not sure whether she has benefitted from taking Dilaudid and requests change to Morphine. Patient reports nausea and some vomiting this morning but none since. Despite vomiting, patient states she is hungry and would like to eat if possible. Patient does not feel that pain has improved enough that she does not need current pain medication. Patient states she is breathing well. Normal urine output. Patient denies history of withdrawal but states she has had prior seizure associated with TBI. Physical Exam Vital signs: Vital Signs 04/05/18 12:55 04/05/18 18:18 04/05/18 19:16 Temperature Pulse Rate 105 H 98 H 80 Respiratory Rate 16 16 Blood Pressure 204/135 H 210/136 H Pulse Oximetry 97 04/05/18 19:17 04/05/18 19:18 04/05/18 20:00 Temperature 97.8 F 97.5 F L Pulse Rate 80 92 H Respiratory Rate 17 20 Blood Pressure 167/123 H 161/101 H Pulse Oximetry 98 98 04/06/18 00:00 04/06/18 04:00 04/06/18 04:23 Temperature 97.5 F L 97.6 F Pulse Rate 84 71 Respiratory Rate 20 18 Blood Pressure 149/93 H 140/92 H Pulse Oximetry 97 97 99 04/06/18 08:00 04/06/18 09:00 Temperature 98.1 F Pulse Rate 90 90 Respiratory Rate 19 Blood Pressure 169/103 H Pulse Oximetry 94 L Intake & Output 04/05/18 04/06/18 04/06/18 18:59 06:59 18:59 Intake Total 1999 Balance 1999 Weight 56.699 kg 52.8 kg Intake: IV 1999 NS Inj 1,000 ML @ 250 mls/hr IV 1999 .CONT .Q4H [facility] Rx#:[id number] Other: Weight On Admission 52.8 kg Narrative: General: No acute distress Skin: No visible lesions CV: Regular rate and rhythm; normal perfusion Resp: CTAB, normal rate Abdomen:minimal abdominal pain; seems somewhat distended but soft. No evidence of ascites MSK: Grossly normal ROM and motor function Neuro: Grossly normal CN; grossly normal peripheral motor/sensory function Results - Labs CBC & Chem 7: 04/06/18 04:10 04/06/18 04:15 Laboratory Results - last 24 hr 04/05/18 04/05/18 04/05/18 12:56 12:56 12:56 WBC 10.2 RBC 4.53 Hgb 14.4 Hct 42.3 MCV 93.4 MCH 31.9 MCHC 34.2 RDW 13.1 Plt Count 221 MPV 8.4 Neut % (Auto) 80.2 H Lymph % (Auto) 9.3 [place] % (Auto) 9.3 H Eos % (Auto) 0.6 Baso % (Auto) 0.6 Neut # (Auto) 8.2 H Lymph # (Auto) 0.9 L [place] # (Auto) 0.9 Eos # (Auto) 0.1 Baso # (Auto) 0.1 WBC Differential . Differential Comment Auto diff final PT INR APTT Sodium 136 Potassium 3.3 L Chloride 101 Carbon Dioxide 24.2 Anion Gap 11 BUN 8 Creatinine 0.39 L Estimated GFR Greater than 89 Random Glucose 98 Lactic Acid Calcium 8.9 Total Bilirubin 0.5 AST 19 ALT 12 Alkaline Phosphatase 191 H Total Creatine Kinase 32 Troponin I Less than 0.02 L Total Protein 8.2 Albumin 3.4 Triglycerides Lipase 15673 H Urine Color [place] Urine Clarity Cloudy H Urine pH 5.0 Ur Specific [place] 1.027 Urine Protein 100 H Urine Glucose (UA) Negative Urine Ketones 20 Urine Occult Blood Small H Urine Nitrate Negative Urine Bilirubin Negative Urine Urobilinogen 4 or greater Ur Leukocyte Esterase Negative Urine RBC 11 H Urine WBC 4 Ur Squamous Epith Cells 10 Calcium Oxalate Crystal Occasional H Urine Bacteria Rare H Hyaline Casts 74 Urine Mucus Many H Micro UA Comment Culture not ind Urine Culture Comments Culture not ind 04/05/18 04/05/18 04/05/18 12:56 12:56 12:56 WBC RBC Hgb Hct MCV MCH MCHC RDW Plt Count MPV Neut % (Auto) Lymph % (Auto) [place] % (Auto) Eos % (Auto) Baso % (Auto) Neut # (Auto) Lymph # (Auto) [place] # (Auto) Eos # (Auto) Baso # (Auto) WBC Differential Differential Comment PT INR APTT Sodium Potassium Chloride Carbon Dioxide Anion Gap BUN Creatinine Estimated GFR Random Glucose Lactic Acid Calcium Total Bilirubin AST ALT Alkaline Phosphatase Total Creatine Kinase Cancelled Troponin I Cancelled Total Protein Albumin Triglycerides 139 Lipase Urine Color Urine Clarity Urine pH Ur Specific [place] Urine Protein Urine Glucose (UA) Urine Ketones Urine Occult Blood Urine Nitrate Urine Bilirubin Urine Urobilinogen Ur Leukocyte Esterase Urine RBC Urine WBC Ur Squamous Epith Cells Calcium Oxalate Crystal Urine Bacteria Hyaline Casts Urine Mucus Micro UA Comment Urine Culture Comments 04/05/18 04/06/18 04/06/18 13:10 04:10 04:15 WBC 7.1 RBC 3.84 L Hgb 12.2 D Hct 36.4 MCV 94.8 MCH 31.7 MCHC 33.4 RDW 12.8 Plt Count 216 MPV 8.9 Neut % (Auto) 57.0 Lymph % (Auto) 26.2 [place] % (Auto) 13.1 H Eos % (Auto) 2.5 Baso % (Auto) 1.2 Neut # (Auto) 4.1 Lymph # (Auto) 1.9 [place] # (Auto) 0.9 Eos # (Auto) 0.2 Baso # (Auto) 0.1 WBC Differential . Differential Comment Auto diff final PT 10.9 INR 1.1 APTT 27.6 Sodium 139 Potassium 3.4 L Chloride 105 Carbon Dioxide 23.0 Anion Gap 11 BUN 8 Creatinine 0.32 L Estimated GFR Greater than 89 Random Glucose 68 L Lactic Acid Calcium 8.6 Total Bilirubin AST ALT Alkaline Phosphatase Total Creatine Kinase Troponin I Total Protein Albumin Triglycerides Lipase Urine Color Urine Clarity Urine pH Ur Specific [place] Urine Protein Urine Glucose (UA) Urine Ketones Urine Occult Blood Urine Nitrate Urine Bilirubin Urine Urobilinogen Ur Leukocyte Esterase Urine RBC Urine WBC Ur Squamous Epith Cells Calcium Oxalate Crystal Urine Bacteria Hyaline Casts Urine Mucus Micro UA Comment Urine Culture Comments 04/06/18 04:18 WBC RBC Hgb Hct MCV MCH MCHC RDW Plt Count MPV Neut % (Auto) Lymph % (Auto) [place] % (Auto) Eos % (Auto) Baso % (Auto) Neut # (Auto) Lymph # (Auto) [place] # (Auto) Eos # (Auto) Baso # (Auto) WBC Differential Differential Comment PT INR APTT Sodium Potassium Chloride Carbon Dioxide Anion Gap BUN Creatinine Estimated GFR Random Glucose Lactic Acid 0.6 Calcium Total Bilirubin AST ALT Alkaline Phosphatase Total Creatine Kinase Troponin I Total Protein Albumin Triglycerides Lipase Urine Color Urine Clarity Urine pH Ur Specific [place] Urine Protein Urine Glucose (UA) Urine Ketones Urine Occult Blood Urine Nitrate Urine Bilirubin Urine Urobilinogen Ur Leukocyte Esterase Urine RBC Urine WBC Ur Squamous Epith Cells Calcium Oxalate Crystal Urine Bacteria Hyaline Casts Urine Mucus Micro UA Comment Urine Culture Comments - Imaging Impressions Chest X-Ray 04/05/18 13:01 CONCLUSION: No acute intrathoracic disease. Abdomen/Pelvis CT 04/05/18 13:57 CONCLUSION: 1. There is diffuse enlargement and edema throughout most of the pancreas consistent with acute pancreatitis. There is also multiple stippled calcification throughout the entire pancreas consistent with chronic pancreatitis. There is diffuse dilatation of the pancreatic duct at 6 mm. 2. Tiny stone in the gallbladder. No definite biliary tract obstruction. 3. There is a loop of small bowel in a anterior abdominal wall hernia without definite obstruction at this time. Recommend correlation with patient's physical exam. 4. Small amount of free fluid deep in the pelvis. This is most likely related to patient's acute pancreatitis. Gallbladder Ultrasound 04/05/18 14:21 CONCLUSION: 1. Nodular hepatic contour suggestive of cirrhosis. Trace ascites near the inferior margin of the liver. 2. Prominent diffusely heterogeneous pancreas with pancreatic ductal dilatation. Findings are concerning for acute on chronic pancreatitis. Correlation with pancreatic enzymes is recommended. 3. Prominent common bile duct without focal lesion. This is likely related to inflammation of the pancreatic head although distal CBD is not sufficiently evaluated to exclude stone. MRCP examination may be performed as clinically warranted. Assessment and Plan - Assessment (1) Acute pancreatitis Code(s): K85.90 - Acute pancreatitis without necrosis or infection, unspecified Status: Acute (2) Alcoholism Code(s): F10.20 - Alcohol dependence, uncomplicated Status: Acute (3) HTN (hypertension) Code(s): I10 - Essential (primary) hypertension Status: Acute - Plan Ms. Oh is a 42-year-old female with a history of TBI who presents to the emergency department due to abdominal pain; admitted for pancreatitis Acute pancreatitis Impression: Lipase on admission >14K. Alk phos elevated; other LFT's wnl. CBC unremarkable, lactic acid wnl. Ca 8.9. CT A/P- Diffuse enlargement/edema consistent with acute pancreatitis; also stippled calcification consistent with chronic pancreatitis. Diffuse dilatation of pancreatic duct at 6mm. Tiny stone in gallbladder, no definite obstruction. Small free fluid in pelvis US gallbladder- cirrhosis suggested; trace ascites. Pancreatic ductal dilatation and heterogenous pancreas suggestive of acute on chronic pancreatitis. Common duct w/o lesion. Likely pancreatic head inflamed but distal CBD not evaluated enough to exclude stone -Continue NS at 200-250 cc/h for 48 hours -Acetaminophen, Dilaudid IV PRN for pain -Will change from dilaudid 1mg IV q4 to Morphine 3mg IV q4 hrs per patient request -GI consulted -Continue IVF, NPO -MRCP -PRN antiemetics -Avoid hepatotoxins - Bowel regimen in place. Hypertension Impression: BP on admission in 200 range systolic, likely due to pain; improved. Continued mild HTN with SBP's in ~160's -Continue clonidine 0.1mg Q6hrs PRN Mild Hypokalemia Impression: K 3.3-3.4 on admission -Will add KCl to IVF Hx of TBI Hx of Abdominal surgery with bowel resection - No acute concerns. Alcoholism -Will order CIFL protocol Full code. Lovenox 40mg Qday Code Status: Full code Discharge Planning: Anticipate discharge home after treatment for pancreatitis (1) Acute pancreatitis Qualifiers: Pancreatitis type: unspecified pancreatitis type Acute pancreatitis complication: unspecified Qualified Code(s): K85.90 - Acute pancreatitis without necrosis or infection, unspecified (3) HTN (hypertension) Qualifiers: Hypertension type: essential hypertension Qualified Code(s): I10 - Essential (primary) hypertension
--- NOTE | 2018-04-06 16:19 | MR ---
EXAM DATE: 04/06/2018 4:03 PM EDT AGE/SEX: 42 years / Female INDICATIONS: Abdominal pain. CLINICAL DATA: This is the patient's initial encounter. Patient reports that signs and symptoms have been present for 1 day and indicates a pain score of 7/10. MEDICAL/SURGICAL HISTORY: . Traumatic brain injury. Appendectomy. Right ankle and craniotomy. COMPARISON: C, MRCP W & W/O CONTRAST, 05/14/2017. CT of the abdomen and pelvis April 05, 2018 . TECHNIQUE: Multiplanar, multisequence images of the abdomen were obtained without contrast including dedicated cholangiographic images. FINDINGS: Liver: The liver is homogeneous and normal in signal intensity with no focal defects. Intrahepatic Bile Ducts: There is no intrahepatic biliary ductal dilatation. Common Bile Duct: The common bile duct is dilated reaching a maximum diameter of 14 mm. It tapers at the level of the pancreatic head. No filling defects or obstructing lesions are identified. Gallbladder: The gallbladder is normal with no evidence for cholelithiasis, gallbladder wall thicken ing, or pericholecystic fluid. Pancreas: The pancreas is abnormal. Edema is seen throughout the pancreas with enlargement of the pa ncreatic head and dilatation of the pancreatic duct. The duct reaches a maximum diameter of 7 mm. It tapers at the level of the pancreatic head. No stone observed within the pancreatic duct or common bi le duct. No discrete mass. A trace amount of fluid is seen adjacent to the liver and spleen. No pseud ocyst observed.. CONCLUSION: 1. Findings consistent with acute on chronic pancreatitis without choledocholithiasis or pseudocyst. The common bile duct and pancreatic duct are dilated with tapering at the level of the pancreatic he ad. Following resolution of the patient's acute pancreatitis consideration should be made to MRI of t he pancreas with and without gadolinium to further assess for any underlying lesion. 2. Small volume ascites. Electronically signed by: Tang Garcia MD 04/06/2018 4:17 PM EDT
[2018-04-06] MEDS: Enoxaparin Inj 40 MG/0.4 ML Syringe SQ SCH (17:19)
[2018-04-06] MEDS: Acetaminophen 325 MG Tablet PO PRN ×2 (17:26→21:11)
--- NOTE | 2018-04-06 20:05 | ECG ---
Date Performed: 04/05/2018 Time Performed: 14:04:29 PTAGE: 42 years EKG: Sinus rhythm LEFT ATRIAL ENLARGEMENT ABNORMAL ECG PREVIOUS TRACING : 04/04/2015 21.22 Left Atrial abnormality new to the prior tracing DOCTOR: Darin Rivera Interpretating Date/Time 04/06/2018 20:05:06
[2018-04-06] MEDS ORDERED: Haloperidol Inj 5 MG/ML Ampul IV.PUSH PRN (21:18)
[2018-04-06] MEDS ORDERED: LORazepam 1 MG Tablet PO PRN (21:18)
[2018-04-07] MEDS: Temazepam 15 MG Capsule PO PRN (00:05)
[2018-04-07] MEDS: Potassium Chloride Inj 10 MEQ in Sod Chloride 0.9% Inj 1,000 ML IV.CONT SCH ×3 (00:05→07:40)
[2018-04-07] MEDS: Morphine Inj 4 MG/ML Vial IV.PUSH PRN ×5 (01:14→20:57)
[2018-04-07] MEDS: Acetaminophen 325 MG Tablet PO PRN ×2 (08:29→19:56)
[2018-04-07 09:34] LABS: Baso # (Auto) 0.1 th/mm3 (0.0-0.2); Baso % (Auto) 1.2 % (0.0-2.0); Eos # (Auto) 0.2 th/mm3 (0.0-0.4); Eos % (Auto) 2.4 % (0.0-4.0); Hematocrit 36.6 % (35.0-46.0); Hemoglobin 12.1 gm/dL (11.6-15.3); Lymph # (Auto) 1.9 th/mm3 (1.0-4.8); Lymph % (Auto) 23.9 % (9.0-44.0); Mean Corpuscular Hemoglobin 31.6 pg (27.0-34.0); Mean Platelet Volume 9.4 fL (7.0-11.0); Mono # (Auto) 0.9 th/mm3 (0.0-0.9); Mono % (Auto) 12.1 % (0.0-8.0); Neut # (Auto) 4.7 th/mm3 (1.8-7.7); Neut % (Auto) 60.4 % (16.0-70.0); Platelet Count 213 th/mm3 (150-450); Red Blood Count 3.81 mil/mm3 (4.00-5.30); White Blood Count 7.8 th/mm3 (4.0-11.0)
[2018-04-07 10:07] LABS: Anion Gap 20 meq/L (5-15)
[2018-04-07 10:08] LABS: Alanine Aminotransferase 11 U/L (10-53); Albumin 2.8 g/dL (3.4-5.0); Alkaline Phosphatase 148 U/L (45-117); Aspartate Aminotransferase 26 U/L (15-37); Blood Urea Nitrogen 5 mg/dL (7-18); Calcium 8.9 mg/dL (8.5-10.1); Carbon Dioxide 12.9 meq/L (21.0-32.0); Chloride 106 meq/L (98-107); Glomerular Filtration Rate Greater Than 89 mL/min (>89); Lipase 330 U/L (73-393); Sodium 139 meq/L (136-145); Total Protein 7.1 g/dL (6.4-8.2)
[2018-04-07 10:10] LABS: Potassium 2.9 meq/L (3.5-5.1)
[2018-04-07 10:11] LABS: Glucose,Random 31 mg/dL (74-106)
[2018-04-07] MEDS ORDERED: Dextrose 50% in Water 50 ML Vial IV.PUSH PRN (10:35)
[2018-04-07] MEDS ORDERED: Potassium Chloride Inj 20 MEQ in Sod Chloride 0.9% Inj 1,000 ML IV.CONT SCH (10:38)
--- NOTE | 2018-04-07 13:29 | P.PNGI ---
Subjective Interval history: Patient's resting in the bed and sitting on side of the bed awake answering simple questions Still having some generalized mid abdominal pain but states it has improved today Current hemoglobin 12.2, initial lipase level 14,233 Patient has history of tobacco and alcohol usage and dependence Afebrile <Alycia Caldwell - Last Filed: 04/07/18 13:16> Physical Exam Vital signs: Vital Signs 04/06/18 13:56 04/06/18 16:00 04/06/18 20:00 Temperature 97.2 F L 97.8 F Pulse Rate 91 H 87 Respiratory Rate 19 18 Blood Pressure 176/105 H 164/105 H Pulse Oximetry 96 98 97 04/06/18 20:40 04/07/18 00:00 04/07/18 04:00 Temperature 97.9 F 98 F Pulse Rate 75 83 Respiratory Rate 18 18 Blood Pressure 162/98 H 134/90 Pulse Oximetry 98 98 97 04/07/18 08:00 Temperature 85 F L Pulse Rate Respiratory Rate 17 Blood Pressure 135/89 Pulse Oximetry 95 Intake & Output 04/06/18 04/07/18 04/07/18 18:59 06:59 18:59 Intake Total 1000 / 1000 1005 / 1005 Balance 1000 / 1000 1005 / 1005 Intake: IV 1000 / 1000 1005 / 1005 KCl Inj 10 MEQ In NS Inj 1,000 1005 / 1005 ML @ 200 mls/hr IV.CONT .Q5H2[facility] Rx#:[id number] NS Inj 1,000 ML @ 250 mls/hr IV 1000 / 1000 .CONT .Q4H [facility] Rx#:[id number] Oral 0 / 0 Other: # Voids 4 Date of Last Bowel Movement 04/04/18 - Constitutional mild distress (Thin body frame) - Routine HEENT Exam Head: Present: normocephalic, atraumatic ENT: Present: mucous membranes dry - Routine Neck Exam Present: supple - Routine Respiratory Exam Present: decreased breath sounds (Even, unlabored) - Routine Cardiovascular Exam Present: RRR - Routine Abdominal Exam Present: soft (Inner aspect around the umbilical area, taut right outer quadrant and left outer quadrant) <Alycia Caldwell - Last Filed: 04/07/18 13:16> Vital signs: Vital Signs 04/06/18 20:00 04/06/18 20:40 04/07/18 00:00 Temperature 97.8 F 97.9 F Pulse Rate 87 75 Respiratory Rate 18 18 Blood Pressure 164/105 H 162/98 H Pulse Oximetry 97 98 98 04/07/18 04:00 04/07/18 08:00 04/07/18 09:00 Temperature 98 F 85 F L Pulse Rate 83 87 Respiratory Rate 18 17 Blood Pressure 134/90 135/89 Pulse Oximetry 97 95 04/07/18 12:00 04/07/18 16:00 Temperature 98.0 F 98.4 F Pulse Rate 87 77 Respiratory Rate 19 Blood Pressure 148/100 H 174/108 H Pulse Oximetry 96 90 L Intake & Output 04/07/18 04/07/18 04/08/18 06:59 18:59 06:59 Intake Total 1005 / 1005 Balance 1005 / 1005 Intake: IV 1005 / 1005 KCl Inj 10 MEQ In NS Inj 1,000 1005 / 1005 ML @ 200 mls/hr IV.CONT .Q5H2M [facility] Rx#:[id number] Other: Date of Last Bowel Movement 04/04/18 <Alex Child E - Last Filed: 04/07/18 19:16> Results - Labs CBC & Chem 7: 04/07/18 08:33 04/07/18 08:33 Laboratory Results - last 24 hr 04/07/18 04/07/18 04/07/18 08:33 08:33 08:33 WBC 7.8 RBC 3.81 L Hgb 12.1 Hct 36.6 MCV 96.0 MCH 31.6 MCHC 33.0 RDW 13.0 Plt Count 213 MPV 9.4 Neut % (Auto) 60.4 Lymph % (Auto) 23.9 [place] % (Auto) 12.1 H Eos % (Auto) 2.4 Baso % (Auto) 1.2 Neut # (Auto) 4.7 Lymph # (Auto) 1.9 [place] # (Auto) 0.9 Eos # (Auto) 0.2 Baso # (Auto) 0.1 WBC Differential . Differential Comment Auto diff final Sodium 139 Potassium 2.9 L* Chloride 106 Carbon Dioxide 12.9 L D Anion Gap 20 H BUN 5 L Creatinine 0.32 L Estimated GFR Greater than 89 POC Glucose Random Glucose 31 L* Calcium 8.9 Total Bilirubin 0.5 AST 26 ALT 11 Alkaline Phosphatase 148 H Total Protein 7.1 D Albumin 2.8 L D Lipase Cancelled 330 04/07/18 04/07/18 04/07/18 10:14 10:38 11:22 WBC RBC Hgb Hct MCV MCH MCHC RDW Plt Count MPV Neut % (Auto) Lymph % (Auto) [place] % (Auto) Eos % (Auto) Baso % (Auto) Neut # (Auto) Lymph # (Auto) [place] # (Auto) Eos # (Auto) Baso # (Auto) WBC Differential Differential Comment Sodium Potassium Chloride Carbon Dioxide Anion Gap BUN Creatinine Estimated GFR POC Glucose 39 L* 50 L 75 Random Glucose Calcium Total Bilirubin AST ALT Alkaline Phosphatase Total Protein Albumin Lipase Microbiology 04/06/18 04:18 Blood - Peripheral Aerobic Blood Culture - Preliminary No growth in 1 day 04/06/18 04:18 Blood - Peripheral Anaerobic Blood Culture - Preliminary No growth in 1 day 04/06/18 04:10 Blood - Peripheral Aerobic Blood Culture - Preliminary No growth in 1 day 04/06/18 04:10 Blood - Peripheral Anaerobic Blood Culture - Preliminary No growth in 1 day - Imaging Impressions Cholangiopancreatography MRI 04/06/18 00:00 CONCLUSION: 1. Findings consistent with acute on chronic pancreatitis without choledocholithiasis or pseudocyst. The common bile duct and pancreatic duct are dilated with tapering at the level of the pancreatic head. Following resolution of the patient's acute pancreatitis consideration should be made to MRI of the pancreas with and without gadolinium to further assess for any underlying lesion. 2. Small volume ascites. <Alycia Caldwell - Last Filed: 04/07/18 13:16> - Labs CBC & Chem 7: 04/07/18 08:33 04/07/18 08:33 Laboratory Results - last 24 hr 04/07/18 04/07/18 04/07/18 08:33 08:33 08:33 WBC 7.8 RBC 3.81 L Hgb 12.1 Hct 36.6 MCV 96.0 MCH 31.6 MCHC 33.0 RDW 13.0 Plt Count 213 MPV 9.4 Neut % (Auto) 60.4 Lymph % (Auto) 23.9 [place] % (Auto) 12.1 H Eos % (Auto) 2.4 Baso % (Auto) 1.2 Neut # (Auto) 4.7 Lymph # (Auto) 1.9 [place] # (Auto) 0.9 Eos # (Auto) 0.2 Baso # (Auto) 0.1 WBC Differential . Differential Comment Auto diff final Sodium 139 Potassium 2.9 L* Chloride 106 Carbon Dioxide 12.9 L D Anion Gap 20 H BUN 5 L Creatinine 0.32 L Estimated GFR Greater than 89 POC Glucose Random Glucose 31 L* Calcium 8.9 Total Bilirubin 0.5 AST 26 ALT 11 Alkaline Phosphatase 148 H Total Protein 7.1 D Albumin 2.8 L D Lipase Cancelled 330 04/07/18 04/07/18 04/07/18 10:14 10:38 11:22 WBC RBC Hgb Hct MCV MCH MCHC RDW Plt Count MPV Neut % (Auto) Lymph % (Auto) [place] % (Auto) Eos % (Auto) Baso % (Auto) Neut # (Auto) Lymph # (Auto) [place] # (Auto) Eos # (Auto) Baso # (Auto) WBC Differential Differential Comment Sodium Potassium Chloride Carbon Dioxide Anion Gap BUN Creatinine Estimated GFR POC Glucose 39 L* 50 L 75 Random Glucose Calcium Total Bilirubin AST ALT Alkaline Phosphatase Total Protein Albumin Lipase Microbiology 04/06/18 04:18 Blood - Peripheral Aerobic Blood Culture - Preliminary No growth in 1 day 04/06/18 04:18 Blood - Peripheral Anaerobic Blood Culture - Preliminary No growth in 1 day 04/06/18 04:10 Blood - Peripheral Aerobic Blood Culture - Preliminary No growth in 1 day 04/06/18 04:10 Blood - Peripheral Anaerobic Blood Culture - Preliminary No growth in 1 day <Alex Child - Last Filed: 04/07/18 19:16> Assessment and Plan (1) Acute on chronic pancreatitis Status: Acute Code(s): K85.90 - Acute pancreatitis without necrosis or infection, unspecified; K86.1 - Other chronic pancreatitis - Plan Assessment: - Acute on chronic pancreatitis secondary to ETOH abuse, with history of pancreatic pseudocysts. Despite previous hospitalization for pancreatitis and advice for alcohol cessation, pt continues to drink on a daily basis. States last ETOH was 5 days ago, was previously drinking 3-4 glasses of liquor daily. History of pseudocysts, was noted to have an anterior abdominal fluid collection/abscess that was drained 06/23 by IR- unclear if this was a pseudocyst. Pt was advised to have outpatient EUS, however lost her insurance and has not followed up in the office. Complaining of abdominal pain, generalized, intermittent since September but constant since yesterday. Described as aching. Associated nausea and vomiting for a few weeks. US gallbladder --> Nodular hepatic contour suggestive of cirrhosis. Trace ascites near the inferior margin of the liver. Prominent diffusely heterogeneous pancreas with pancreatic ductal dilatation. Findings are concerning for acute on chronic pancreatitis. Prominent common bile duct without focal lesion. Ct abdomen and pelvis W IV contrast --> There is diffuse enlargement and edema throughout most of the pancreas consistent with acute pancreatitis. There is also multiple stippled calcification throughout the entire pancreas consistent with chronic pancreatitis. There is diffuse dilatation of the pancreatic duct at 6 mm. Tiny stone in the gallbladder. No definite biliary tract obstruction. There is a loop of small bowel in a anterior abdominal wall hernia without definite obstruction at this time. Small amount of free fluid deep in the pelvis. This is most likely related to patient's acute pancreatitis. Lipase-14,223 Alk phos-191 AST-19 ALT-12 T bili-0.5 - Cirrhosis- Denies known history of liver issues, however previous imaging is consistent with cirrhosis. ETOH abuse. Denies history of IV drug use. Tattoo to right leg, done at a friends house. Denies high risk sexual behaviors. 04/07/2018 patient's resting in the bed states still having some mild abdominal pain but gradual improvement noted. Patient denies any nausea or vomiting. No bowel movement 3 days. Current hemoglobin 12.2 denies any rectal bleeding dyspepsia dysphasia or hematemesis.. Lipase level on 04/05/2018 [id number]. Patient' s abdomen appears soft centrally but taut outer quadrants. Patient notes controlled alcohol use at least 3 times a week and 3-4 drinks daily. Discussed the need for alcohol abstinence. Large mid abdominal scar healed. States: Surgery July 2017, perforation? MRCP, on 04/06/2018 shows findings consistent with acute on chronic pancreatitis without Choledocholithiasis or pseudocyst common bile duct and pancreatic duct are dilated with tapering at the level of the pancreatic head following resolution of the patient's acute pancreatitis consideration should be made to MRI of the pancreas and with or without gadolinium to further assess any underlying lesion. Small volume ascites. Current hemoglobin 12.1. Appears to feel some gradual improvement from her alcoholic pancreatitis. Patient may need outpatient following for further liver evaluation. Plan: Diet, liquid diet monitor toleration Monitor labs with special attention to hemoglobin and lipase level Pain control per attending Antiemetics PRN Discussed and encouraged alcohol abstinence Consider MRI of the pancreas with or without gadolinium to further assess underlying lesion after patient has recovered from acute pancreatitis. Pt was seen per myself and Dr. Child, note was written on his behalf <Alycia Caldwell - Last Filed: 04/07/18 13:16> (1) Acute on chronic pancreatitis Status: Acute Code(s): K85.90 - Acute pancreatitis without necrosis or infection, unspecified; K86.1 - Other chronic pancreatitis - Attending Attestation Patient seen and examined Agree with above Continue current supportive care Monitor labs <Alex Child - Last Filed: 04/07/18 19:16>
[2018-04-07] MEDS: Enoxaparin Inj 40 MG/0.4 ML Syringe SQ SCH (16:41)
--- NOTE | 2018-04-07 18:15 | P.PNIM ---
Subjective Interval history: Mrs. Oh was afebrile with intermittent HTN overnight (SBP ~140's-170's). Labs reviewed- patient with large improvement in lipase since last lab evaluation Per nursing staff, patient was asymptomatically hypoglycemic this morning with low glucose of 31 Mrs. Oh reports that she feels much better and would like to try clear fluids. Patient reports some heartburn and states that she still has abdominal pain, lower chest pain, and back pain. She states that her abdominal pain has improved significantly. No respiratory symptoms. Normal urination. Physical Exam Vital signs: Vital Signs 04/06/18 20:00 04/06/18 20:40 04/07/18 00:00 Temperature 97.8 F 97.9 F Pulse Rate 87 75 Respiratory Rate 18 18 Blood Pressure 164/105 H 162/98 H Pulse Oximetry 97 98 98 04/07/18 04:00 04/07/18 08:00 04/07/18 09:00 Temperature 98 F 85 F L Pulse Rate 83 87 Respiratory Rate 18 17 Blood Pressure 134/90 135/89 Pulse Oximetry 97 95 04/07/18 12:00 04/07/18 16:00 Temperature 98.0 F 98.4 F Pulse Rate 87 77 Respiratory Rate 19 Blood Pressure 148/100 H 174/108 H Pulse Oximetry 96 90 L Intake & Output 04/06/18 04/07/18 04/07/18 18:59 06:59 18:59 Intake Total 1000 / 1000 1005 / 1005 Balance 1000 / 1000 1005 / 1005 Intake: IV 1000 / 1000 1005 / 1005 KCl Inj 10 MEQ In NS Inj 1,000 1005 / 1005 ML @ 200 mls/hr IV.CONT .Q5H2M [facility] Rx#:[id number] NS Inj 1,000 ML @ 250 mls/hr IV 1000 / 1000 .CONT .Q4H [facility] Rx#:[id number] Oral 0 / 0 Other: # Voids 4 Date of Last Bowel Movement 04/04/18 Narrative: General: No acute distress Skin: No visible lesions CV: Regular rate and rhythm; normal perfusion Resp: CTAB, normal rate Abdomen: no appreciated abdominal pain to light palpation; seems somewhat distended but soft MSK: Grossly normal ROM and motor function Neuro: Grossly normal CN; grossly normal peripheral motor/sensory function Results - Labs CBC & Chem 7: 04/07/18 08:33 07/20/18 08:33 Laboratory Results - last 24 hr 04/07/18 04/07/18 04/07/18 08:33 08:33 08:33 WBC 7.8 RBC 3.81 L Hgb 12.1 Hct 36.6 MCV 96.0 MCH 31.6 MCHC 33.0 RDW 13.0 Plt Count 213 MPV 9.4 Neut % (Auto) 60.4 Lymph % (Auto) 23.9 [place] % (Auto) 12.1 H Eos % (Auto) 2.4 Baso % (Auto) 1.2 Neut # (Auto) 4.7 Lymph # (Auto) 1.9 [place] # (Auto) 0.9 Eos # (Auto) 0.2 Baso # (Auto) 0.1 WBC Differential . Differential Comment Auto diff final Sodium 139 Potassium 2.9 L* Chloride 106 Carbon Dioxide 12.9 L D Anion Gap 20 H BUN 5 L Creatinine 0.32 L Estimated GFR Greater than 89 POC Glucose Random Glucose 31 L* Calcium 8.9 Total Bilirubin 0.5 AST 26 ALT 11 Alkaline Phosphatase 148 H Total Protein 7.1 D Albumin 2.8 L D Lipase Cancelled 330 04/07/18 04/07/18 04/07/18 10:14 10:38 11:22 WBC RBC Hgb Hct MCV MCH MCHC RDW Plt Count MPV Neut % (Auto) Lymph % (Auto) [place] % (Auto) Eos % (Auto) Baso % (Auto) Neut # (Auto) Lymph # (Auto) [place] # (Auto) Eos # (Auto) Baso # (Auto) WBC Differential Differential Comment Sodium Potassium Chloride Carbon Dioxide Anion Gap BUN Creatinine Estimated GFR POC Glucose 39 L* 50 L 75 Random Glucose Calcium Total Bilirubin AST ALT Alkaline Phosphatase Total Protein Albumin Lipase Microbiology 04/06/18 04:18 Blood - Peripheral Aerobic Blood Culture - Preliminary No growth in 1 day 04/06/18 04:18 Blood - Peripheral Anaerobic Blood Culture - Preliminary No growth in 1 day 04/06/18 04:10 Blood - Peripheral Aerobic Blood Culture - Preliminary No growth in 1 day 04/06/18 04:10 Blood - Peripheral Anaerobic Blood Culture - Preliminary No growth in 1 day Assessment and Plan - Assessment (1) Acute pancreatitis Code(s): K85.90 - Acute pancreatitis without necrosis or infection, unspecified Status: Acute (2) Alcoholism Code(s): F10.20 - Alcohol dependence, uncomplicated Status: Acute (3) HTN (hypertension) Code(s): I10 - Essential (primary) hypertension Status: Acute - Plan Ms. Oh is a 42-year-old female with a history of TBI who presents to the emergency department due to abdominal pain; admitted for pancreatitis Acute pancreatitis Impression: Lipase on admission >14K. Alk phos elevated; other LFT's wnl. CBC unremarkable, lactic acid wnl. Ca 8.9. CT A/P- Diffuse enlargement/edema consistent with acute pancreatitis; also stippled calcification consistent with chronic pancreatitis. Diffuse dilatation of pancreatic duct at 6mm. Tiny stone in gallbladder, no definite obstruction. Small free fluid in pelvis US gallbladder- cirrhosis suggested; trace ascites. Pancreatic ductal dilatation and heterogenous pancreas suggestive of acute on chronic pancreatitis. Common duct w/o lesion. Likely pancreatic head inflamed but distal CBD not evaluated enough to exclude stone MRCP- acute on chronic pancreatitis; common and pancreatic duct dilated and tapering at level of pancreatic head. Consider MRI pancreas for further evaluation for underlying lesion 04/07: Lipase improved to 330 -Continue NS; will reduce to 150ml/hr -Continue Tylenol, Morphine 3mg IV for pain -GI consulted -Continue IVF -Liquid diet -Monitor Hgb, lipase -PRN antiemetics -Avoid hepatotoxins -Consider MRI pancreus w/ w/o gadolinium to further assess for lesion after recovery - Bowel regimen in place. -Will increase diet clear-> full as tolerated Hypertension Impression: BP on admission in 200 range systolic, likely due to pain; improved. Continued mild HTN with SBP's in ~160's -Continue clonidine 0.1mg Q6hrs PRN -Will start Lisinopril 10mg daily Hypokalemia Impression: K 3.3-3.4 on admission-> 2.9 04/07 -Will give 40mEq KCl x2 q 4hrs -Will add 20 mEq KCl to IVF -Will repeat BMP and check magnesium Hypoglycemia Impression: glucose 31 this morning-> 75 after oral fructose containing beverage. Suspect secondary to increased pancreatic glucose production with improvement in pancreatitis -Continue to monitor Accuchecks Hx of Abdominal surgery with bowel resection - No acute concerns. Alcoholism -Continue CIWA protocol Full code. Lovenox 40mg Qday Code Status: Full code Discharge Planning: Anticipate discharge home after treatment for pancreatitis (1) Acute pancreatitis Qualifiers: Pancreatitis type: unspecified pancreatitis type Acute pancreatitis complication: unspecified Qualified Code(s): K85.90 - Acute pancreatitis without necrosis or infection, unspecified (3) HTN (hypertension) Qualifiers: Hypertension type: essential hypertension Qualified Code(s): I10 - Essential (primary) hypertension
[2018-04-07] MEDS ORDERED: Famotidine 20 MG Tablet PO ONE (19:30)
[2018-04-07 22:09] LABS: Anion Gap 13 meq/L (5-15); Blood Urea Nitrogen 2 mg/dL (7-18); Calcium 8.8 mg/dL (8.5-10.1); Carbon Dioxide 16.8 meq/L (21.0-32.0); Chloride 104 meq/L (98-107); Glomerular Filtration Rate Greater Than 89 mL/min (>89); Glucose,Random 95 mg/dL (74-106); Magnesium 1.3 mg/dL (1.5-2.5); Potassium 3.5 meq/L (3.5-5.1); Sodium 134 meq/L (136-145)
[2018-04-08] MEDS: Acetaminophen 325 MG Tablet PO PRN ×3 (02:05→16:48)
[2018-04-08] MEDS: Morphine Inj 4 MG/ML Vial IV.PUSH PRN ×3 (02:05→10:34)
[2018-04-08] MEDS: Potassium Chloride Inj 10 MEQ in Sod Chloride 0.9% Inj 1,000 ML IV.CONT SCH (07:14)
[2018-04-08 08:13] LABS: Baso # (Auto) 0.1 th/mm3 (0.0-0.2); Baso % (Auto) 0.9 % (0.0-2.0); Eos # (Auto) 0.1 th/mm3 (0.0-0.4); Eos % (Auto) 0.9 % (0.0-4.0); Hematocrit 37.4 % (35.0-46.0); Hemoglobin 12.3 gm/dL (11.6-15.3); Lymph # (Auto) 1.4 th/mm3 (1.0-4.8); Lymph % (Auto) 11.4 % (9.0-44.0); Mean Corpuscular Hemoglobin 31.4 pg (27.0-34.0); Mean Corpuscular Volume 95.3 fL (80.0-100.0); Mean Platelet Volume 9.3 fL (7.0-11.0); Mono # (Auto) 1.2 th/mm3 (0.0-0.9); Mono % (Auto) 10.3 % (0.0-8.0); Neut # (Auto) 9.2 th/mm3 (1.8-7.7); Neut % (Auto) 76.5 % (16.0-70.0); Platelet Count 234 th/mm3 (150-450); Red Blood Count 3.93 mil/mm3 (4.00-5.30); Red Cell Distribution Width 12.7 % (11.6-17.2); White Blood Count 12.1 th/mm3 (4.0-11.0)
[2018-04-08 08:42] LABS: Anion Gap 11 meq/L (5-15); Blood Urea Nitrogen 1 mg/dL (7-18); Calcium 8.8 mg/dL (8.5-10.1); Carbon Dioxide 18.3 meq/L (21.0-32.0); Chloride 111 meq/L (98-107); Potassium 3.5 meq/L (3.5-5.1); Sodium 140 meq/L (136-145)
[2018-04-08 08:44] LABS: Glomerular Filtration Rate Greater Than 89 mL/min (>89); Glucose,Random 89 mg/dL (74-106)
--- NOTE | 2018-04-08 14:10 | P.PNGI ---
Subjective Interval history: Pt is sitting up in bed, doing good, no nausea, no vomiting, no abd pain, inquiring about diet. Physical Exam Vital signs: Vital Signs 04/07/18 16:00 04/07/18 19:45 04/07/18 20:00 Temperature 98.4 F 100.6 F H Pulse Rate 77 87 90 Respiratory Rate 17 Blood Pressure 174/108 H 188/102 H Pulse Oximetry 90 L 100 04/07/18 23:45 04/08/18 00:00 04/08/18 04:00 Temperature 98.2 F 98.7 F Pulse Rate 83 84 81 Respiratory Rate 17 17 Blood Pressure 148/88 H 139/81 Pulse Oximetry 100 100 04/08/18 08:00 Temperature 98.3 F Pulse Rate 81 Respiratory Rate 17 Blood Pressure 132/89 Pulse Oximetry 99 Intake & Output 04/07/18 04/08/18 04/08/18 18:59 06:59 18:59 Intake Total 240 / 240 3005 / 3005 Balance 240 / 240 3005 / 3005 Intake: IV 3005 / 3005 NS + KCl 20 mEq Inj 1,000 ML @ 1000 / 1000 150 mls/hr IV.CONT .Q6H40M [facility] Rx#:[id number] Oral 240 / 240 Other: # Voids 3 Date of Last Bowel Movement 04/07/18 - Constitutional no acute distress - Routine HEENT Exam Head: Present: normocephalic, atraumatic Eye: Present: PERRL ENT: Present: mucous membranes moist - Routine Neck Exam Present: supple - Routine Respiratory Exam Present: CTA bilaterally. Absent: accessory muscle use - Routine Cardiovascular Exam Present: RRR - Routine Abdominal Exam Present: soft, normoactive bowel sounds. Absent: tenderness, distended - Routine Skin Exam Present: intact, dry - Routine Neurological Exam Present: alert, oriented X3 - Routine Psychiatric Exam Present: normal affect Results - Labs CBC & Chem 7: 04/08/18 07:14 04/08/18 07:14 Laboratory Results - last 24 hr 04/07/18 04/08/18 04/08/18 20:40 07:14 07:14 WBC 12.1 H D RBC 3.93 L Hgb 12.3 Hct 37.4 MCV 95.3 MCH 31.4 MCHC 33.0 RDW 12.7 Plt Count 234 MPV 9.3 Neut % (Auto) 76.5 H Lymph % (Auto) 11.4 [place] % (Auto) 10.3 H Eos % (Auto) 0.9 Baso % (Auto) 0.9 Neut # (Auto) 9.2 H Lymph # (Auto) 1.4 [place] # (Auto) 1.2 H Eos # (Auto) 0.1 Baso # (Auto) 0.1 WBC Differential . Differential Comment Auto diff final Sodium 134 L 140 Potassium 3.5 3.5 Chloride 104 111 H Carbon Dioxide 16.8 L 18.3 L Anion Gap 13 11 BUN 2 L 1 L Creatinine 0.42 L 0.32 L Estimated GFR Greater than 89 Greater than 89 Random Glucose 95 89 Calcium 8.8 8.8 Magnesium 1.3 L Microbiology 04/06/18 04:18 Blood - Peripheral Aerobic Blood Culture - Preliminary No growth in 2 days 04/06/18 04:18 Blood - Peripheral Anaerobic Blood Culture - Preliminary No growth in 2 days 04/06/18 04:10 Blood - Peripheral Aerobic Blood Culture - Preliminary No growth in 2 days 04/06/18 04:10 Blood - Peripheral Anaerobic Blood Culture - Preliminary No growth in 2 days Assessment and Plan (1) Acute on chronic pancreatitis Status: Acute Code(s): K85.90 - Acute pancreatitis without necrosis or infection, unspecified; K86.1 - Other chronic pancreatitis - Plan Assessment: - Acute on chronic pancreatitis secondary to ETOH abuse, with history of pancreatic pseudocysts. Despite previous hospitalization for pancreatitis and advice for alcohol cessation, pt continues to drink on a daily basis. States last ETOH was 5 days ago, was previously drinking 3-4 glasses of liquor daily. History of pseudocysts, was noted to have an anterior abdominal fluid collection/abscess that was drained 06/23 by IR- unclear if this was a pseudocyst. Pt was advised to have outpatient EUS, however lost her insurance and has not followed up in the office. Complaining of abdominal pain, generalized, intermittent since September but constant since yesterday. Described as aching. Associated nausea and vomiting for a few weeks. US gallbladder --> Nodular hepatic contour suggestive of cirrhosis. Trace ascites near the inferior margin of the liver. Prominent diffusely heterogeneous pancreas with pancreatic ductal dilatation. Findings are concerning for acute on chronic pancreatitis. Prominent common bile duct without focal lesion. Ct abdomen and pelvis W IV contrast --> There is diffuse enlargement and edema throughout most of the pancreas consistent with acute pancreatitis. There is also multiple stippled calcification throughout the entire pancreas consistent with chronic pancreatitis. There is diffuse dilatation of the pancreatic duct at 6 mm. Tiny stone in the gallbladder. No definite biliary tract obstruction. There is a loop of small bowel in a anterior abdominal wall hernia without definite obstruction at this time. Small amount of free fluid deep in the pelvis. This is most likely related to patient's acute pancreatitis. Lipase-14,223 Alk phos-191 AST-19 ALT-12 T bili-0.5 - Cirrhosis- Denies known history of liver issues, however previous imaging is consistent with cirrhosis. ETOH abuse. Denies history of IV drug use. Tattoo to right leg, done at a friends house. Denies high risk sexual behaviors. 04/07/2018 patient's resting in the bed states still having some mild abdominal pain but gradual improvement noted. Patient denies any nausea or vomiting. No bowel movement 3 days. Current hemoglobin 12.2 denies any rectal bleeding dyspepsia dysphasia or hematemesis.. Lipase level on 04/05/2018 [id number]. Patient' s abdomen appears soft centrally but taut outer quadrants. Patient notes controlled alcohol use at least 3 times a week and 3-4 drinks daily. Discussed the need for alcohol abstinence. Large mid abdominal scar healed. States: Surgery July 2017, perforation? MRCP, on 04/06/2018 shows findings consistent with acute on chronic pancreatitis without Choledocholithiasis or pseudocyst common bile duct and pancreatic duct are dilated with tapering at the level of the pancreatic head following resolution of the patient's acute pancreatitis consideration should be made to MRI of the pancreas and with or without gadolinium to further assess any underlying lesion. Small volume ascites. Current hemoglobin 12.1. Appears to feel some gradual improvement from her alcoholic pancreatitis. Patient may need outpatient following for further liver evaluation. 04/08/18 slight elevation in WBC, no LFTs or lipase levels done today Plan: Full liquid diet, advance as tolerated CBC, CMP, lipase in the am Add cipro Pain control per attending Antiemetics PRN Discussed and encouraged alcohol abstinence Consider MRI of the pancreas with or without gadolinium to further assess underlying lesion after patient has recovered from acute pancreatitis. Pt was seen per myself and Dr. Jim note was written on his behalf
--- NOTE | 2018-04-08 14:48 | P.PNIM ---
Subjective Interval history: Mrs. Oh was febrile to 100.6F overnight. HR ~100bpm; increase from previously. Patient states that she feels that her abdominal/back pain is improving. She has been doing well with full liquid diet. Patient has been urinating frequently but thinks that this is due to drinking frequently and using IV fluids. No dysuria. No shortness of breath. Physical Exam Vital signs: Vital Signs 04/07/18 16:00 04/07/18 19:45 04/07/18 20:00 Temperature 98.4 F 100.6 F H Pulse Rate 77 87 90 Respiratory Rate 17 Blood Pressure 174/108 H 188/102 H Pulse Oximetry 90 L 100 04/07/18 23:45 04/08/18 00:00 04/08/18 04:00 Temperature 98.2 F 98.7 F Pulse Rate 83 84 81 Respiratory Rate 17 17 Blood Pressure 148/88 H 139/81 Pulse Oximetry 100 100 04/08/18 08:00 04/08/18 12:00 Temperature 98.3 F 98.4 F Pulse Rate 81 92 H Respiratory Rate 17 17 Blood Pressure 132/89 156/99 H Pulse Oximetry 99 99 Intake & Output 04/07/18 04/08/18 04/08/18 18:59 06:59 18:59 Intake Total 240 / 240 3005 / 3005 Balance 240 / 240 3005 / 3005 Intake: IV 3005 / 3005 NS + KCl 20 mEq Inj 1,000 ML @ 1000 / 1000 150 mls/hr IV.CONT .Q6H40M [facility] Rx#:[id number] Oral 240 / 240 Other: # Voids 3 Date of Last Bowel Movement 04/07/18 Narrative: General: No acute distress Skin: No visible lesions CV: Regular rate and rhythm; normal perfusion Resp: CTAB, normal rate Abdomen: mild pain to light palpation; soft MSK: Grossly normal ROM and motor function Neuro: Grossly normal CN; grossly normal peripheral motor/sensory function Results - Labs CBC & Chem 7: 04/08/18 07:14 04/08/18 07:14 Laboratory Results - last 24 hr 04/07/18 04/08/18 04/08/18 20:40 07:14 07:14 WBC 12.1 H D RBC 3.93 L Hgb 12.3 Hct 37.4 MCV 95.3 MCH 31.4 MCHC 33.0 RDW 12.7 Plt Count 234 MPV 9.3 Neut % (Auto) 76.5 H Lymph % (Auto) 11.4 [place] % (Auto) 10.3 H Eos % (Auto) 0.9 Baso % (Auto) 0.9 Neut # (Auto) 9.2 H Lymph # (Auto) 1.4 [place] # (Auto) 1.2 H Eos # (Auto) 0.1 Baso # (Auto) 0.1 WBC Differential . Differential Comment Auto diff final Sodium 134 L 140 Potassium 3.5 3.5 Chloride 104 111 H Carbon Dioxide 16.8 L 18.3 L Anion Gap 13 11 BUN 2 L 1 L Creatinine 0.42 L 0.32 L Estimated GFR Greater than 89 Greater than 89 Random Glucose 95 89 Calcium 8.8 8.8 Magnesium 1.3 L Microbiology 04/06/18 04:18 Blood - Peripheral Aerobic Blood Culture - Preliminary No growth in 2 days 04/06/18 04:18 Blood - Peripheral Anaerobic Blood Culture - Preliminary No growth in 2 days 04/06/18 04:10 Blood - Peripheral Aerobic Blood Culture - Preliminary No growth in 2 days 04/06/18 04:10 Blood - Peripheral Anaerobic Blood Culture - Preliminary No growth in 2 days Assessment and Plan - Assessment (1) Acute pancreatitis Code(s): K85.90 - Acute pancreatitis without necrosis or infection, unspecified Status: Acute (2) Alcoholism Code(s): F10.20 - Alcohol dependence, uncomplicated Status: Acute (3) HTN (hypertension) Code(s): I10 - Essential (primary) hypertension Status: Acute - Plan Ms. Oh is a 42-year-old female with a history of TBI who presents to the emergency department due to abdominal pain; admitted for pancreatitis Acute pancreatitis Impression: Lipase on admission >14K. Alk phos elevated; other LFT's wnl. CBC unremarkable, lactic acid wnl. Ca 8.9. CT A/P- Diffuse enlargement/edema consistent with acute pancreatitis; also stippled calcification consistent with chronic pancreatitis. Diffuse dilatation of pancreatic duct at 6mm. Tiny stone in gallbladder, no definite obstruction. Small free fluid in pelvis US gallbladder- cirrhosis suggested; trace ascites. Pancreatic ductal dilatation and heterogenous pancreas suggestive of acute on chronic pancreatitis. Common duct w/o lesion. Likely pancreatic head inflamed but distal CBD not evaluated enough to exclude stone MRCP- acute on chronic pancreatitis; common and pancreatic duct dilated and tapering at level of pancreatic head. Consider MRI pancreas for further evaluation for underlying lesion 04/07: Lipase improved to 330 -Continue NS; continue at 150ml/hr -Will reduce from IV morphine to oral Oxycodone due to improvement in pain -GI consulted -Cipro added -Continue IVF -Advance to full liquid diet -Monitor Hgb, lipase -PRN antiemetics -Avoid hepatotoxins -Consider MRI pancreas w/ w/o gadolinium to further assess for lesion after recovery - Bowel regimen in place. Fever Impression: T101.6F this afternoon; 100.6 overnight. Started on Ciprofloxacin per GI. UA and CXR unremarkable on admission -Continue Ciprofloxacin -Will check blood cultures -Will check UA since increased frequency; will consider CXR if pulmonary symptoms Hypertension Impression: On admission BP on admission in 200 range systolic, likely due to pain; improved. Continued mild HTN with SBP's in ~160's -Continue clonidine 0.1mg Q6hrs PRN -Continue Lisinopril 10mg daily Hypokalemia Impression: Resolved (2.9 04/07). K 3.5 today s/p oral KCL. Mg 1.3 -Monitor BMP -Will give daily magnesium chloride Hypoglycemia Impression: Resolved after oral fructose; suspect secondary to increased pancreatic glucose production with improvement in pancreatitis. -Continue to monitor Accuchecks Hx of Abdominal surgery with bowel resection - No acute concerns. Alcoholism -Continue CIKS protocol Full code. Lovenox 40mg Qday Code Status: Full code Discharge Planning: Anticipate discharge home after treatment for pancreatitis (1) Acute pancreatitis Qualifiers: Pancreatitis type: unspecified pancreatitis type Acute pancreatitis complication: unspecified Qualified Code(s): K85.90 - Acute pancreatitis without necrosis or infection, unspecified (3) HTN (hypertension) Qualifiers: Hypertension type: essential hypertension Qualified Code(s): I10 - Essential (primary) hypertension
[2018-04-08] MEDS: Ciprofloxacin 400 MG/200 ML 400 MG/200 ML PIGGYBACK IV.SIG SCH (16:03)
[2018-04-08] MEDS: Enoxaparin Inj 40 MG/0.4 ML Syringe SQ SCH (16:03)
[2018-04-08] MEDS ORDERED: Famotidine 20 MG Tablet PO SCH (21:00)
[2018-04-08 21:20] LABS: Bilirubin,Urine Negative (Negative); Clarity,Urine Clear (Clear); Color,Urine Straw (Yellw/Straw); Glucose,Urine (UA) Negative (Negative); Leukocyte Esterase,Urine Negative (Negative); Nitrite,Urine Negative (Negative); Specific Gravity,Urine 1.001 (1.002-1.035); Squamous Epithelial Cell,Urine <1 /hpf (0-5)
[2018-04-08] MEDS: Temazepam 15 MG Capsule PO PRN (23:49)
[2018-04-09] MEDS: Ciprofloxacin 400 MG/200 ML 400 MG/200 ML PIGGYBACK IV.SIG SCH (03:56)
[2018-04-09 05:17] LABS: Baso # (Auto) 0.1 th/mm3 (0.0-0.2); Baso % (Auto) 0.8 % (0.0-2.0); Eos # (Auto) 0.1 th/mm3 (0.0-0.4); Eos % (Auto) 0.6 % (0.0-4.0); Lymph # (Auto) 1.7 th/mm3 (1.0-4.8); Mean Corpuscular HGB Conc 33.2 % (32.0-36.0); Mean Corpuscular Hemoglobin 31.2 pg (27.0-34.0); Mean Corpuscular Volume 94.2 fL (80.0-100.0); Mean Platelet Volume 9.4 fL (7.0-11.0); Mono # (Auto) 1.5 th/mm3 (0.0-0.9); Mono % (Auto) 12.5 % (0.0-8.0); Neut # (Auto) 8.3 th/mm3 (1.8-7.7); Neut % (Auto) 71.1 % (16.0-70.0); Platelet Count 208 th/mm3 (150-450); Red Blood Count 3.83 mil/mm3 (4.00-5.30); Red Cell Distribution Width 13.1 % (11.6-17.2); White Blood Count 11.6 th/mm3 (4.0-11.0)
[2018-04-09 05:36] LABS: Albumin 2.4 g/dL (3.4-5.0); Anion Gap 9 meq/L (5-15); Aspartate Aminotransferase 18 U/L (15-37); Blood Urea Nitrogen 2 mg/dL (7-18); Calcium 8.5 mg/dL (8.5-10.1); Carbon Dioxide 20.6 meq/L (21.0-32.0); Chloride 109 meq/L (98-107); Glomerular Filtration Rate Greater Than 89 mL/min (>89); Glucose,Random 79 mg/dL (74-106); Lipase 115 U/L (73-393); Potassium 3.4 meq/L (3.5-5.1); Sodium 139 meq/L (136-145)
[2018-04-09 05:37] LABS: Alanine Aminotransferase 14 U/L (10-53)
[2018-04-09 05:39] LABS: Alkaline Phosphatase 171 U/L (45-117); Total Protein 6.4 g/dL (6.4-8.2)
[2018-04-09 08:32] VITALS: RESP 17
--- NOTE | 2018-04-09 12:44 | P.PNIM ---
Subjective Interval history: Ms. Oh had T101.6 F yesterday afternoon; she has since been afebrile. Otherwise stable VS. Patient reports continued improvement in abdominal pain w/ associated chest/ back pain. Patient has some back pain which she rates as "7" but states her chest/back pain has decreased to "1". Patient desires regular diet. No shortness of breath or urinary changes reported. Patient had normal BM yesterday. Physical Exam Vital signs: Vital Signs 04/08/18 15:44 04/08/18 16:00 04/08/18 17:34 Temperature 101.6 F H Pulse Rate 101 H 102 H Respiratory Rate 17 Blood Pressure 151/93 H Pulse Oximetry 97 97 04/08/18 20:00 04/09/18 00:00 04/09/18 05:16 Temperature 98.2 F 98.2 F Pulse Rate 85 82 98 H Respiratory Rate 21 20 Blood Pressure 135/80 137/87 Pulse Oximetry 100 95 04/09/18 08:00 04/09/18 12:00 Temperature 98.4 F 98.4 F Pulse Rate 90 91 H Respiratory Rate 17 17 Blood Pressure 128/77 135/95 H Pulse Oximetry 97 97 Intake & Output 04/08/18 04/09/18 04/09/18 18:59 06:59 18:59 Intake Total 4005 / 4005 2880 / 2880 Balance 4005 / 4005 2880 / 2880 Intake: IV 4005 / 4005 2400 / 2400 NS + KCl 20 mEq Inj 1,000 ML @ 2000 / 2000 2000 / 2000 150 mls/hr IV.CONT .Q6H40M [facility] Rx#:[id number] Cipro 400 MG/200 ML Inj 400 mg 400 / 400 In 200 ml @ 200 mls/hr IV.SIG Q12H [facility] Rx#:[id number] Oral 480 / 480 Other: # Voids 4 Date of Last Bowel Movement 04/07/18 Narrative: General: No acute distress Skin: No visible lesions CV: Regular rate and rhythm; normal perfusion Resp: CTAB, normal rate Abdomen: no pain to light palpation; soft. Large infraumbilical hernia present- reducible MSK: Grossly normal ROM and motor function Neuro: Grossly normal CN; grossly normal peripheral motor/sensory function Results - Labs CBC & Chem 7: 04/09/18 03:51 04/09/18 03:51 Laboratory Results - last 24 hr 04/08/18 04/09/18 04/09/18 20:48 03:51 03:51 WBC 11.6 H RBC 3.83 L Hgb 12.0 Hct 36.0 MCV 94.2 MCH 31.2 MCHC 33.2 RDW 13.1 Plt Count 208 MPV 9.4 Neut % (Auto) 71.1 H Lymph % (Auto) 15.0 [place] % (Auto) 12.5 H Eos % (Auto) 0.6 Baso % (Auto) 0.8 Neut # (Auto) 8.3 H Lymph # (Auto) 1.7 [place] # (Auto) 1.5 H Eos # (Auto) 0.1 Baso # (Auto) 0.1 WBC Differential . Differential Comment Auto diff final Sodium 139 Potassium 3.4 L Chloride 109 H Carbon Dioxide 20.6 L Anion Gap 9 BUN 2 L Creatinine 0.33 L Estimated GFR Greater than 89 Random Glucose 79 Calcium 8.5 Total Bilirubin 0.5 AST 18 ALT 14 Alkaline Phosphatase 171 H Total Protein 6.4 D Albumin 2.4 L Lipase 115 Urine Color Straw Urine Clarity Clear Urine pH 6.0 Ur Specific [place] 1.001 L Urine Protein Negative Urine Glucose (UA) Negative Urine Ketones Negative Urine Occult Blood Small H Urine Nitrate Negative Urine Bilirubin Negative Urine Urobilinogen Less than 2 Ur Leukocyte Esterase Negative Urine RBC Less than 1 Ur Squamous Epith Cells <1 Micro UA Comment Culture not ind Microbiology 04/08/18 20:33 Blood - Peripheral Aerobic Blood Culture - Preliminary No growth in 1 day 04/08/18 20:33 Blood - Peripheral Anaerobic Blood Culture - Preliminary No growth in 1 day 04/08/18 20:25 Blood - Peripheral Aerobic Blood Culture - Preliminary No growth in 1 day 04/08/18 20:25 Blood - Peripheral Anaerobic Blood Culture - Preliminary No growth in 1 day 04/06/18 04:18 Blood - Peripheral Aerobic Blood Culture - Preliminary No growth in 3 days 04/06/18 04:18 Blood - Peripheral Anaerobic Blood Culture - Preliminary No growth in 3 days 04/06/18 04:10 Blood - Peripheral Aerobic Blood Culture - Preliminary No growth in 3 days 04/06/18 04:10 Blood - Peripheral Anaerobic Blood Culture - Preliminary No growth in 3 days Assessment and Plan - Assessment (1) Acute pancreatitis Code(s): K85.90 - Acute pancreatitis without necrosis or infection, unspecified Status: Acute (2) Alcoholism Code(s): F10.20 - Alcohol dependence, uncomplicated Status: Acute (3) HTN (hypertension) Code(s): I10 - Essential (primary) hypertension Status: Acute - Plan Ms. Oh is a 42-year-old female with a history of TBI who presents to the emergency department due to abdominal pain; admitted for pancreatitis Acute pancreatitis Impression: Lipase on admission >14K. Alk phos elevated; other LFT's wnl. CBC unremarkable, lactic acid wnl. Ca 8.9. CT A/P- Diffuse enlargement/edema consistent with acute pancreatitis; also stippled calcification consistent with chronic pancreatitis. Diffuse dilatation of pancreatic duct at 6mm. Tiny stone in gallbladder, no definite obstruction. Small free fluid in pelvis US gallbladder- cirrhosis suggested; trace ascites. Pancreatic ductal dilatation and heterogenous pancreas suggestive of acute on chronic pancreatitis. Common duct w/o lesion. Likely pancreatic head inflamed but distal CBD not evaluated enough to exclude stone MRCP- acute on chronic pancreatitis; common and pancreatic duct dilated and tapering at level of pancreatic head. Consider MRI pancreas for further evaluation for underlying lesion 04/07: Lipase improved to 330 -Continue NS; continue at 150ml/hr -Will reduce from IV morphine to oral Oxycodone due to improvement in pain -GI consulted -Cipro added -Continue IVF -Advance diet -Monitor Hgb, lipase -PRN antiemetics -Avoid hepatotoxins -Consider MRI pancreas w/ w/o gadolinium to further assess for lesion after recovery - Bowel regimen in place. Fever Impression: T101.6F 04/08. Started on Ciprofloxacin per GI. UA and CXR unremarkable on admission. Some increased frequency reported 04/08; repeat UA unremarkable Blood cultures negative on admission x3 days; repeat cultures obtained 04/08 pending -Continue empiric Ciprofloxacin Hypertension Impression: recently improved; normotensive. On admission BP on admission in 200 range systolic, likely due to pain -Continue clonidine 0.1mg Q6hrs PRN -Continue Lisinopril 10mg daily Hypokalemia Impression: Resolved (2.9 04/07). K 3.4 today Mg 1.3 -Monitor BMP -Will give daily magnesium chloride -Will give KCl 30mEq x1 Hypoglycemia Impression: Resolved after oral fructose; suspect secondary to increased pancreatic glucose production with improvement in pancreatitis. -Continue to monitor Accuchecks Hx of Abdominal surgery with bowel resection - No acute concerns. Alcoholism -Continue CIWA protocol Full code. Lovenox 40mg Qday Discharge Planning: Anticipate discharge home after treatment for pancreatitis (1) Acute pancreatitis Qualifiers: Pancreatitis type: unspecified pancreatitis type Acute pancreatitis complication: unspecified Qualified Code(s): K85.90 - Acute pancreatitis without necrosis or infection, unspecified (3) HTN (hypertension) Qualifiers: Hypertension type: essential hypertension Qualified Code(s): I10 - Essential (primary) hypertension
--- NOTE | 2018-04-09 13:10 | P.PNGI ---
Subjective Interval history: Pt resting in bed. Complaining of some distention over hernia. Denies nausea, vomiting, abdominal pain. Anxious to have diet advanced. <Aubree Junior - Last Filed: 04/09/18 13:06> Physical Exam Vital signs: Vital Signs 04/08/18 15:44 04/08/18 16:00 04/08/18 17:34 Temperature 101.6 F H Pulse Rate 101 H 102 H Respiratory Rate 17 Blood Pressure 151/93 H Pulse Oximetry 97 97 04/08/18 20:00 04/09/18 00:00 04/09/18 05:16 Temperature 98.2 F 98.2 F Pulse Rate 85 82 98 H Respiratory Rate 21 20 Blood Pressure 135/80 137/87 Pulse Oximetry 100 95 04/09/18 08:00 04/09/18 12:00 Temperature 98.4 F 98.4 F Pulse Rate 90 91 H Respiratory Rate 17 17 Blood Pressure 128/77 135/95 H Pulse Oximetry 97 97 Intake & Output 04/08/18 04/09/18 04/09/18 18:59 06:59 18:59 Intake Total 4005 / 4005 2880 / 2880 Balance 4005 / 4005 2880 / 2880 Intake: IV 4005 / 4005 2400 / 2400 NS + KCl 20 mEq Inj 1,000 ML @ 1999 / 1999 2000 / 2000 150 mls/hr IV.CONT .Q6H40M [facility] Rx#:[id number] Cipro 400 MG/200 ML Inj 400 mg 400 / 400 In 200 ml @ 200 mls/hr IV.SIG Q12H [facility] Rx#:[id number] Oral 480 / 480 Other: # Voids 4 Date of Last Bowel Movement 04/07/18 - Constitutional no acute distress - Routine HEENT Exam Head: Present: normocephalic, atraumatic - Routine Respiratory Exam Absent: accessory muscle use - Routine Cardiovascular Exam Present: RRR - Routine Abdominal Exam Present: soft, normoactive bowel sounds, distended, hernia. Absent: tenderness - Routine Skin Exam Present: dry, warm - Routine Neurological Exam Present: alert, oriented X3 <Aubree Junior - Last Filed: 04/09/18 13:06> Vital signs: Vital Signs 04/08/18 15:44 04/08/18 16:00 07/21/18 17:34 Temperature 101.6 F H Pulse Rate 101 H 102 H Respiratory Rate 17 Blood Pressure 151/93 H Pulse Oximetry 97 97 04/08/18 20:00 04/09/18 00:00 04/09/18 05:16 Temperature 98.2 F 98.2 F Pulse Rate 85 82 98 H Respiratory Rate 21 20 Blood Pressure 135/80 137/87 Pulse Oximetry 100 95 04/09/18 08:00 04/09/18 12:00 Temperature 98.4 F 98.4 F Pulse Rate 90 91 H Respiratory Rate 17 17 Blood Pressure 128/77 135/95 H Pulse Oximetry 97 97 Intake & Output 04/08/18 04/09/18 04/09/18 18:59 06:59 18:59 Intake Total 4005 / 4005 2880 / 2880 Balance 4005 / 4005 2880 / 2880 Intake: IV 4005 / 4005 2400 / 2400 NS + KCl 20 mEq Inj 1,000 ML @ 2000 / 2000 2000 / 2000 150 mls/hr IV.CONT .Q6H40M [facility] Rx#:[id number] Cipro 400 MG/200 ML Inj 400 mg 400 / 400 In 200 ml @ 200 mls/hr IV.SIG Q12H [facility] Rx#:[id number] Oral 480 / 480 Other: # Voids 4 Date of Last Bowel Movement 04/07/18 <Alex Child E - Last Filed: 04/09/18 14:00> Results - Labs CBC & Chem 7: 04/09/18 03:51 04/09/18 03:51 Laboratory Results - last 24 hr 04/08/18 04/09/18 04/09/18 20:48 03:51 03:51 WBC 11.6 H RBC 3.83 L Hgb 12.0 Hct 36.0 MCV 94.2 MCH 31.2 MCHC 33.2 RDW 13.1 Plt Count 208 MPV 9.4 Neut % (Auto) 71.1 H Lymph % (Auto) 15.0 [place] % (Auto) 12.5 H Eos % (Auto) 0.6 Baso % (Auto) 0.8 Neut # (Auto) 8.3 H Lymph # (Auto) 1.7 [place] # (Auto) 1.5 H Eos # (Auto) 0.1 Baso # (Auto) 0.1 WBC Differential . Differential Comment Auto diff final Sodium 139 Potassium 3.4 L Chloride 109 H Carbon Dioxide 20.6 L Anion Gap 9 BUN 2 L Creatinine 0.33 L Estimated GFR Greater than 89 Random Glucose 79 Calcium 8.5 Total Bilirubin 0.5 AST 18 ALT 14 Alkaline Phosphatase 171 H Total Protein 6.4 D Albumin 2.4 L Lipase 115 Urine Color Straw Urine Clarity Clear Urine pH 6.0 Ur Specific [place] 1.001 L Urine Protein Negative Urine Glucose (UA) Negative Urine Ketones Negative Urine Occult Blood Small H Urine Nitrate Negative Urine Bilirubin Negative Urine Urobilinogen Less than 2 Ur Leukocyte Esterase Negative Urine RBC Less than 1 Ur Squamous Epith Cells <1 Micro UA Comment Culture not ind Microbiology 04/08/18 20:33 Blood - Peripheral Aerobic Blood Culture - Preliminary No growth in 1 day 04/08/18 20:33 Blood - Peripheral Anaerobic Blood Culture - Preliminary No growth in 1 day 04/08/18 20:25 Blood - Peripheral Aerobic Blood Culture - Preliminary No growth in 1 day 04/08/18 20:25 Blood - Peripheral Anaerobic Blood Culture - Preliminary No growth in 1 day 04/06/18 04:18 Blood - Peripheral Aerobic Blood Culture - Preliminary No growth in 3 days 04/06/18 04:18 Blood - Peripheral Anaerobic Blood Culture - Preliminary No growth in 3 days 04/06/18 04:10 Blood - Peripheral Aerobic Blood Culture - Preliminary No growth in 3 days 04/06/18 04:10 Blood - Peripheral Anaerobic Blood Culture - Preliminary No growth in 3 days <Aubree Junior - Last Filed: 04/09/18 13:06> - Labs CBC & Chem 7: 04/09/18 03:51 04/09/18 03:51 Laboratory Results - last 24 hr 04/08/18 04/09/18 04/09/18 20:48 03:51 03:51 WBC 11.6 H RBC 3.83 L Hgb 12.0 Hct 36.0 MCV 94.2 MCH 31.2 MCHC 33.2 RDW 13.1 Plt Count 208 MPV 9.4 Neut % (Auto) 71.1 H Lymph % (Auto) 15.0 [place] % (Auto) 12.5 H Eos % (Auto) 0.6 Baso % (Auto) 0.8 Neut # (Auto) 8.3 H Lymph # (Auto) 1.7 [place] # (Auto) 1.5 H Eos # (Auto) 0.1 Baso # (Auto) 0.1 WBC Differential . Differential Comment Auto diff final Sodium 139 Potassium 3.4 L Chloride 109 H Carbon Dioxide 20.6 L Anion Gap 9 BUN 2 L Creatinine 0.33 L Estimated GFR Greater than 89 Random Glucose 79 Calcium 8.5 Total Bilirubin 0.5 AST 18 ALT 14 Alkaline Phosphatase 171 H Total Protein 6.4 D Albumin 2.4 L Lipase 115 Urine Color Straw Urine Clarity Clear Urine pH 6.0 Ur Specific [place] 1.001 L Urine Protein Negative Urine Glucose (UA) Negative Urine Ketones Negative Urine Occult Blood Small H Urine Nitrate Negative Urine Bilirubin Negative Urine Urobilinogen Less than 2 Ur Leukocyte Esterase Negative Urine RBC Less than 1 Ur Squamous Epith Cells <1 Micro UA Comment Culture not ind Microbiology 04/08/18 20:33 Blood - Peripheral Aerobic Blood Culture - Preliminary No growth in 1 day 04/08/18 20:33 Blood - Peripheral Anaerobic Blood Culture - Preliminary No growth in 1 day 04/08/18 20:25 Blood - Peripheral Aerobic Blood Culture - Preliminary No growth in 1 day 04/08/18 20:25 Blood - Peripheral Anaerobic Blood Culture - Preliminary No growth in 1 day 04/06/18 04:18 Blood - Peripheral Aerobic Blood Culture - Preliminary No growth in 3 days 04/06/18 04:18 Blood - Peripheral Anaerobic Blood Culture - Preliminary No growth in 3 days 04/06/18 04:10 Blood - Peripheral Aerobic Blood Culture - Preliminary No growth in 3 days 04/06/18 04:10 Blood - Peripheral Anaerobic Blood Culture - Preliminary No growth in 3 days <Alex Child - Last Filed: 04/09/18 14:00> Assessment and Plan (1) Acute on chronic pancreatitis Status: Acute Code(s): K85.90 - Acute pancreatitis without necrosis or infection, unspecified; K86.1 - Other chronic pancreatitis - Plan Assessment: - Acute on chronic pancreatitis secondary to ETOH abuse, with history of pancreatic pseudocysts. Despite previous hospitalization for pancreatitis and advice for alcohol cessation, pt continues to drink on a daily basis. States last ETOH was 5 days ago, was previously drinking 3-4 glasses of liquor daily. History of pseudocysts, was noted to have an anterior abdominal fluid collection/abscess that was drained 06/23 by IR- unclear if this was a pseudocyst. Pt was advised to have outpatient EUS, however lost her insurance and has not followed up in the office. Complaining of abdominal pain, generalized, intermittent since September but constant since yesterday. Described as aching. Associated nausea and vomiting for a few weeks. US gallbladder --> Nodular hepatic contour suggestive of cirrhosis. Trace ascites near the inferior margin of the liver. Prominent diffusely heterogeneous pancreas with pancreatic ductal dilatation. Findings are concerning for acute on chronic pancreatitis. Prominent common bile duct without focal lesion. Ct abdomen and pelvis W IV contrast --> There is diffuse enlargement and edema throughout most of the pancreas consistent with acute pancreatitis. There is also multiple stippled calcification throughout the entire pancreas consistent with chronic pancreatitis. There is diffuse dilatation of the pancreatic duct at 6 mm. Tiny stone in the gallbladder. No definite biliary tract obstruction. There is a loop of small bowel in a anterior abdominal wall hernia without definite obstruction at this time. Small amount of free fluid deep in the pelvis. This is most likely related to patient's acute pancreatitis. MRCP (04/06) Findings consistent with acute on chronic pancreatitis without choledocholithiasis or pseudocyst. The common bile duct and pancreatic duct are dilated with tapering at the level of the pancreatic head. Following resolution of the patient's acute pancreatitis consideration should be made to MRI of the pancreas with and without gadolinium to further assess for any underlying lesion. Small volume ascites. Lipase-14,223 Alk phos-191 AST-19 ALT-12 T bili-0.5 - Cirrhosis- Denies known history of liver issues, however previous imaging is consistent with cirrhosis. ETOH abuse. Denies history of IV drug use. Tattoo to right leg, done at a friends house. Denies high risk sexual behaviors. Plan: Low fat diet ETOH cessation FU MRCP can be done outpatient following resolution of pancreatitis Continue with current supportive care Our service will sign off, please reconsult as needed have pt follow up with GI after DC Pt has been seen and examined by myself and Dr. Child and this note is written on his behalf <Aubree Junior - Last Filed: 04/09/18 13:06> (1) Acute on chronic pancreatitis Status: Acute Code(s): K85.90 - Acute pancreatitis without necrosis or infection, unspecified; K86.1 - Other chronic pancreatitis - Attending Attestation Patient seen and examined Agree with above Continue with current supportive care Monitor labs Not much to add from a GI perspective at this point we will sign off <Alex Child E - Last Filed: 04/09/18 14:00>
[2018-04-09] MEDS: Enoxaparin Inj 40 MG/0.4 ML Syringe SQ SCH (16:36)
[2018-04-09 16:56] VITALS: BP 139/64; PULSE 87; TEMP 98; O2SAT 96
[2018-04-09] MEDS ORDERED: Ciprofloxacin 400 MG/200 ML 400 MG/200 ML PIGGYBACK IV.SIG SCH (18:00)
--- NOTE | 2018-04-09 21:17 | P.DS ---
Date of admission: 04/05/18 15:42 Primary care physician: UNKNOWN Attending physician on discharge: Devang Noonan Anticipated date of discharge: 04/09/18 Brief History from admission: Per Admission HPI: Ms. Oh is a 42-year-old female with a history of TBI, abdominal surgery with bowel resection in July 2017 who presents to the emergency department due to epigastric pain radiating to her back. Her epigastric pain started two days ago. She had nausea, vomiting for 3 days but currently improved. Additionally, she complains of chronic abdominal pain in the last one month or so which has been worsening. She denies any fever but reports chills. No dysuria , hematuria. No changes in bowel habits. DS: Diagnosis - Discharge Diagnosis (1) Acute pancreatitis Status: Acute (2) Alcoholism Status: Acute (3) HTN (hypertension) Status: Acute DS: Medications - Discharge Medications Prescriptions: ciprofloxacin HCl 500 mg PO Q12H #14 tab magnesium chloride [Mag 64] 64 mg PO DAILY #30 tab oxycodone 5 mg PO Q6H PRN 3 Days #12 tab PRN Reason: Acute Pain DS: Summary Hospital Course: Mrs. Oh is a 42-year-old female with a history of alcoholism, prior abdominal surgery/bowel resection and TBI who presented to [facility] due to abdominal pain radiating to back. Patient found to have lipase of 14K on admission and mildly elevated alkaline phosphatase. CT abdomen/pelvis with diffuse enlargement/edema consistent with acute pancreatitis; also stippled calcification consistent with chronic pancreatitis. Diffuse dilatation of pancreatic duct at 6mm. Tiny stone in gallbladder w/o obstruction also seen. US also suggestive of acute/chronic pancreatitis; stone in distal CBD could not be excluded. Patient started on IVF and pain control. GI consulted; MRCP was obtained showing acute on chronic pancreatitis with tapering at pancreatic head. Patient had improvement; diet was increased as tolerated and pain control was weaned. Patient developed fever to T 101.6F 04/08 in association with mild leukocytosis; he was empirically placed on Ciprofloxacin. Blood cultures and urinalysis obtained. Patient remained afebrile w/ improved WBC; she was discharged home 04/09 on empiric Ciprofloxacin with instructions to stop alcohol intake. Patient will plan to f/u with GI for repeat MRCP/consideration of MRI pancreas and f/u with PCP. - Time Spent with Patient Total time spent providing and/or coordinating discharge services: - Quality: VTE Deep Vein Thrombosis/Pulmonary Embolism Present on Admission: No Exam Vital signs: Vital Signs 04/09/18 00:00 04/09/18 05:16 04/09/18 08:00 Temperature 98.2 F 98.4 F Pulse Rate 82 98 H 90 Respiratory Rate 20 17 Blood Pressure 137/87 128/77 Pulse Oximetry 95 97 04/09/18 12:00 04/09/18 16:00 04/09/18 18:33 Temperature 98.4 F 98.0 F Pulse Rate 91 H 87 Respiratory Rate 17 17 Blood Pressure 135/95 H 139/64 Pulse Oximetry 97 96 96 Intake & Output 04/09/18 04/09/18 04/10/18 06:59 18:59 06:59 Intake Total 2880 / 2880 2025 Balance 2880 / 2880 2025 Intake: IV 2400 / 2400 1000 / 1000 NS + KCl 20 mEq Inj 1,000 ML @ 2000 / 2000 1000 / 1000 150 mls/hr IV.CONT .Q6H40M [facility] Rx#:[id number] Cipro 400 MG/200 ML Inj 400 mg 400 / 400 In 200 ml @ 200 mls/hr IV.SIG Q12H [facility] Rx#:[id number] Oral 480 / 480 1026 / 1026 Other: # Voids 4 15 Narrative: General: No acute distress Skin: No visible lesions CV: Regular rate and rhythm; normal perfusion Resp: CTAB, normal rate Abdomen: no pain to light palpation; soft. Large infraumbilical hernia present- reducible MSK: Grossly normal ROM and motor function Neuro: Grossly normal CN; grossly normal peripheral motor/sensory function Results Procedures completed during hospitalization: None Labs on day of discharge: Labs from last 24 hours 04/09/18 04/09/18 04/08/18 03:51 03:51 20:48 WBC 11.6 H RBC 3.83 L Hgb 12.0 Hct 36.0 MCV 94.2 MCH 31.2 MCHC 33.2 RDW 13.1 Plt Count 208 MPV 9.4 Neut % (Auto) 71.1 H Lymph % (Auto) 15.0 [place] % (Auto) 12.5 H Eos % (Auto) 0.6 Baso % (Auto) 0.8 Neut # (Auto) 8.3 H Lymph # (Auto) 1.7 [place] # (Auto) 1.5 H Eos # (Auto) 0.1 Baso # (Auto) 0.1 WBC Differential . Differential Comment Auto diff final Sodium 139 Potassium 3.4 L Chloride 109 H Carbon Dioxide 20.6 L Anion Gap 9 BUN 2 L Creatinine 0.33 L Estimated GFR Greater than 89 Random Glucose 79 Calcium 8.5 Total Bilirubin 0.5 AST 18 ALT 14 Alkaline Phosphatase 171 H Total Protein 6.4 D Albumin 2.4 L Lipase 115 Urine Color Straw Urine Clarity Clear Urine pH 6.0 Ur Specific [place] 1.001 L Urine Protein Negative Urine Glucose (UA) Negative Urine Ketones Negative Urine Occult Blood Small H Urine Nitrate Negative Urine Bilirubin Negative Urine Urobilinogen Less than 2 Ur Leukocyte Esterase Negative Urine RBC Less than 1 Ur Squamous Epith Cells <1 Micro UA Comment Culture not ind Preliminary micro results at discharge 04/08/18 20:33 Aerobic Blood Culture - Preliminary Blood - Peripheral No growth in 1 day Anaerobic Blood Culture - Preliminary No growth in 1 day 04/08/18 20:25 Aerobic Blood Culture - Preliminary Blood - Peripheral No growth in 1 day Anaerobic Blood Culture - Preliminary No growth in 1 day 04/06/18 04:18 Aerobic Blood Culture - Preliminary Blood - Peripheral No growth in 3 days Anaerobic Blood Culture - Preliminary No growth in 3 days 04/06/18 04:10 Aerobic Blood Culture - Preliminary Blood - Peripheral No growth in 3 days Anaerobic Blood Culture - Preliminary No growth in 3 days - Impressions ITS Impressions Chest X-Ray 04/05/18 13:01 CONCLUSION: No acute intrathoracic disease. Abdomen/Pelvis CT 04/05/18 13:57 CONCLUSION: 1. There is diffuse enlargement and edema throughout most of the pancreas consistent with acute pancreatitis. There is also multiple stippled calcification throughout the entire pancreas consistent with chronic pancreatitis. There is diffuse dilatation of the pancreatic duct at 6 mm. 2. Tiny stone in the gallbladder. No definite biliary tract obstruction. 3. There is a loop of small bowel in a anterior abdominal wall hernia without definite obstruction at this time. Recommend correlation with patient's physical exam. 4. Small amount of free fluid deep in the pelvis. This is most likely related to patient's acute pancreatitis. Gallbladder Ultrasound 04/05/18 14:21 CONCLUSION: 1. Nodular hepatic contour suggestive of cirrhosis. Trace ascites near the inferior margin of the liver. 2. Prominent diffusely heterogeneous pancreas with pancreatic ductal dilatation. Findings are concerning for acute on chronic pancreatitis. Correlation with pancreatic enzymes is recommended. 3. Prominent common bile duct without focal lesion. This is likely related to inflammation of the pancreatic head although distal CBD is not sufficiently evaluated to exclude stone. MRCP examination may be performed as clinically warranted. Cholangiopancreatography MRI 04/06/18 00:00 CONCLUSION: 1. Findings consistent with acute on chronic pancreatitis without choledocholithiasis or pseudocyst. The common bile duct and pancreatic duct are dilated with tapering at the level of the pancreatic head. Following resolution of the patient's acute pancreatitis consideration should be made to MRI of the pancreas with and without gadolinium to further assess for any underlying lesion. 2. Small volume ascites. - Imaging and Cardiology CT scan - abdomen Additional comments: Chest X-Ray 04/05/18 13:01 CONCLUSION: No acute intrathoracic disease. Abdomen/Pelvis CT 04/05/18 13:57 CONCLUSION: 1. There is diffuse enlargement and edema throughout most of the pancreas consistent with acute pancreatitis. There is also multiple stippled calcification throughout the entire pancreas consistent with chronic pancreatitis. There is diffuse dilatation of the pancreatic duct at 6 mm. 2. Tiny stone in the gallbladder. No definite biliary tract obstruction. 3. There is a loop of small bowel in a anterior abdominal wall hernia without definite obstruction at this time. Recommend correlation with patient's physical exam. 4. Small amount of free fluid deep in the pelvis. This is most likely related to patient's acute pancreatitis. Gallbladder Ultrasound 04/05/18 14:21 CONCLUSION: 1. Nodular hepatic contour suggestive of cirrhosis. Trace ascites near the inferior margin of the liver. 2. Prominent diffusely heterogeneous pancreas with pancreatic ductal dilatation. Findings are concerning for acute on chronic pancreatitis. Correlation with pancreatic enzymes is recommended. 3. Prominent common bile duct without focal lesion. This is likely related to inflammation of the pancreatic head although distal CBD is not sufficiently evaluated to exclude stone. MRCP examination may be performed as clinically warranted. Cholangiopancreatography MRI 04/06/18 00:00 CONCLUSION: 1. Findings consistent with acute on chronic pancreatitis without choledocholithiasis or pseudocyst. The common bile duct and pancreatic duct are dilated with tapering at the level of the pancreatic head. Following resolution of the patient's acute pancreatitis consideration should be made to MRI of the pancreas with and without gadolinium to further assess for any underlying lesion. 2. Small volume ascites. Discharge Plan - Discharge Disposition Patient Disposition: 01 Discharge Home - Discharge Condition Condition: Stable - Discharge Order Discharge Orders: Discharge Order (Routine); Ordered 04/09/18 Ordered By: Devang Noonan - Discharge Details Anticipated Discharge Date: 04/09/18 - Physicians Team Primary Care Provider: UNKNOWN, Attending Provider: Devang Noonan Other Providers: Alex Child MD
== END 2018-04-09 20:13 | disposition home or self-care (01) ==
LOC: NEPC 09:24 → NEDA 15:42 → N07 19:27
PROVIDERS: ADMIT Family Medicine; ATTEND Family Medicine
DX: I10 Essential (primary) hypertension; F10.20 Alcohol dependence, uncomplicated; K80.20 Calculus of gallbladder without cholecystitis without obstruction; F17.210 Nicotine dependence, cigarettes, uncomplicated; Z79.899 Other long term (current) drug therapy; E87.6 Hypokalemia; K80.50 Calculus of bile duct without cholangitis or cholecystitis without obstruction; R50.9 Fever, unspecified; K74.60 Unspecified cirrhosis of liver; R07.9 Chest pain, unspecified; K85.20 Alcohol induced acute pancreatitis without necrosis or infection; Z88.0 Allergy status to penicillin; K86.0 Alcohol-induced chronic pancreatitis; R60.9 Edema, unspecified; E16.2 Hypoglycemia, unspecified; Z87.820 Personal history of traumatic brain injury; K43.9 Ventral hernia without obstruction or gangrene

== ENCOUNTER 2018-05-02 15:03 | Inpatient (IN) ==
[~2018-05-02 15:03] MED LIST changes: -ADVI200C9 PO; +Lidocaine PF 1% Inj 5 ML Syringe INFILTRATN ONE; +Phenylephrine/NS 1000 MCG/10ML Syringe IV.PUSH ONE; +Succinylcholine Inj 100 MG/5 ML Syringe IV.PUSH ONE; -VENTAER INH
[2018-05-02] MEDS ORDERED: Sod Chloride 0.9% Inj 1,000 ML IV.SIG ONE (15:10)
[2018-05-02] MEDS ORDERED: Morphine Inj 4 MG/ML Vial IV.PUSH ONE ×2 (15:10→19:32)
--- NOTE | 2018-05-02 15:19 | ED ---
HPI General Chief Complaint: Abdominal Pain Stated Complaint: Medical Time Seen by Provider: 05/02/18 15:10 Source: patient Mode of arrival: EMS History of Present Illness HPI narrative: Patient is a 42-year-old female with history of traumatic brain injury, history of abdominal surgeries with bowel resection in July 2017, history of pancreatitis, presents to the emergency room with complaints of abdominal pain. Patient reports that for since July, she has been having constant abdominal pain. Patient reports that she was seen in the emergency room 2 weeks ago and was told that she had an infection to her lower abdomen, she did not complete course of antibiotics as she does not have insurance and could not afford her medication. Reports that 2 weeks ago, she was told that she had an abdominal hernia. Patient reports that her abdomen is more painful - she is unsure if her abdomen is getting more distended as he has history of TBI and can't remember anything. She has been complaining of nausea and has been vomiting - patient with no nausea today Related Data Previous Rx's Medication Instructions Recorded ciprofloxacin HCl 500 mg PO Q12H #14 tab 04/09/18 magnesium chloride [Mag 64] 64 mg PO DAILY #30 tab 04/09/18 Allergies Allergy/AdvReac Type Severity Reaction Status Date / Time amoxicillin Allergy Severe Hives Verified 04/05/18 19:19 penicillin G Allergy Severe Hives Verified 04/05/18 19:19 Review of Systems ROS: all other systems reviewed are negative PMFSH History History Provided By: Patient Medical History Medical History Traumatic brain injury (Acute) Surgical History Surgical History H/O abdominal surgery (Acute) H/O brain surgery (Acute) History of orthopedic surgery (Acute) Social History Social History Substance History: Past History Second Hand Smoke Exposure: No Smoking Status: Current every day smoker Tobacco Type: Cigarettes How Often Do You Have a Drink Containing Alcohol: 2 to 4 times a month Immunization History Tetanus Immunization: Unsure Hx Influenza Vaccine This Season: No Exam Narrative Exam Narrative: GENERAL: moderate distress SKIN: Focused skin assessment warm/dry. HEAD: Atraumatic. Normocephalic. EYES: Pupils equal and round. No scleral icterus. No injection or drainage. ENT: No nasal bleeding or discharge. Mucous membranes pink and moist. NECK: Trachea midline. No JVD. CARDIOVASCULAR: Tachycardia. No murmur appreciated. RESPIRATORY: No accessory muscle use. Clear to auscultation. Breath sounds equal bilaterally. GASTROINTESTINAL: Abdomen soft, diffusely tender and distended, she does have 2 midline ventral hernia's, Hepatic and splenic margins not palpable. MUSCULOSKELETAL: No obvious deformities. No clubbing. No cyanosis. No edema. NEUROLOGICAL: Awake and alert. No obvious cranial nerve deficits. Motor grossly within normal limits. Normal speech. PSYCHIATRIC: Appropriate mood and affect; insight and judgment normal. Course Initial Documented Vital Signs Pulse Rate 100 H 05/02/18 15:38 Last Documented Vital Signs Pulse Rate 104 H 05/02/18 17:44 Respiratory Rate 17 05/02/18 17:44 Blood Pressure 111/78 05/02/18 17:44 Pulse Oximetry 97 05/02/18 17:44 Medical Decision Making MDM Narrative Medical decision making narrative: During the course of the patients emergency department visit, the patients history, examination, and differential diagnosis were reviewed with the patient. The patient was placed on a credit union examiner with oximetry and frequent blood pressure monitoring. The patient had an IV access obtained and blood work sent for analysis. The patient was initially provided IV morphine as well as IVF wbc 14.5, hgb 12.7, hct 37.3 ammonia 30, sodium 129, potassium 2.8, lipase 7244, BUN 21, creatinine 0.68 CT of abdomen and pelvis with anterior abdominal wall hernia containing a loop of small bowel with air and apparent surrounding inflammatory change - inflammatory change. There is an abnormal bowel gas pattern and this is a concern for acute obstruction. Case reviewed with Dr. Smith who will see patient in consult. Medical Screen Exam Complete: Yes Emergency Medical Condition: Yes Differential Diagnosis Differential Diagnosis: pancreatitis, sbo, incarcerated hernia, cellulitis Medical Records Medical records reviewed: Yes I reviewed the patient's medical records. Lab Data Lab results reviewed: Yes I reviewed the patient's lab results. Result diagrams: 05/02/18 15:10 05/02/18 15:10 Lab Results 05/02/18 05/02/18 05/02/18 Range/Units 15:10 15:10 15:10 WBC 14.5 H (4.0-11.0) th/mm3 RBC 4.18 (4.00-5.30) mil/mm3 Hgb 12.7 (11.6-15.3) gm/dL Hct 37.3 (35.0-46.0) % MCV 89.4 (80.0-100.0) fL MCH 30.5 (27.0-34.0) pg MCHC 34.2 (32.0-36.0) % RDW 14.1 (11.6-17.2) % Plt Count 379 D (150-450) th/mm3 MPV 9.0 (7.0-11.0) fL Prelim Diff (Auto) Slide review pending Neut % (Auto) 82.4 H (16.0-70.0) % Lymph % (Auto) 5.7 L (9.0-44.0) % [place] % (Auto) 10.0 H (0.0-8.0) % Eos % (Auto) 0.5 (0.0-4.0) % Baso % (Auto) 1.4 (0.0-2.0) % Neut # (Auto) 12.0 H (1.8-7.7) th/mm3 Lymph # (Auto) 0.8 L (1.0-4.8) th/mm3 [place] # (Auto) 1.5 H (0.0-0.9) th/mm3 Eos # (Auto) 0.1 (0.0-0.4) th/mm3 Baso # (Auto) 0.2 (0.0-0.2) th/mm3 WBC Differential Manual diff final Seg Neuts % (Manual) 81 H (16-70) % Band Neuts % (Manual) 8 H (0-6) % Lymphocytes % (Manual) 2 L (9-44) % Monocytes % (Manual) 8 (0-8) % Metamyelocytes % (Man) 1 (0-1) % Abs Neuts (Manual) 13.1 H (1.8-7.7) th/mm3 Differential Comment . Toxic Granulation 1+ H (None) Platelet Estimate Normal (Normal) Platelet Morphology Clumped H (Normal) PT 11.8 H (9.8-11.6) sec INR 1.2 Ratio APTT 27.1 (24.3-30.1) sec Sodium 127 L (136-145) meq/L Potassium 2.8 L* (3.5-5.1) meq/L Chloride 86 L (98-107) meq/L Carbon Dioxide 29.9 (21.0-32.0) meq/L Anion Gap 11 (5-15) meq/L BUN 21 H (7-18) mg/dL Creatinine 0.68 (0.50-1.00) mg/dL Estimated GFR Greater than 89 (>89) mL/min Random Glucose 129 H (74-106) mg/dL Lactic Acid (0.4-2.0) mmol/L Calcium 8.0 L (8.5-10.1) mg/dL Total Bilirubin 0.6 (0.2-1.0) mg/dL AST 52 H (15-37) U/L ALT 16 (10-53) U/L Alkaline Phosphatase 203 H (45-117) U/L Ammonia (11-32) mcmol/L Total Protein 6.8 (6.4-8.2) g/dL Albumin 1.7 L (3.4-5.0) g/dL Lipase 7244 H (73-393) U/L Urine Color (Yellw/Straw) Urine Clarity (Clear) Urine pH (5.0-8.5) Ur Specific [place] (1.002-1.035) Urine Protein (Neg-Trace) mg/dL Urine Glucose (UA) (Negative) mg/dL Urine Ketones (Negative) mg/dL Urine Occult Blood (Negative) Urine Nitrate (Negative) Urine Bilirubin (Negative) Urine Urobilinogen (Less than 2) mg/dL Ur Leukocyte Esterase (Negative) Urine RBC (0-3) /hpf Urine WBC (0-5) /hpf Ur Squamous Epith Cells (0-5) /hpf Urine Bacteria (None) /hpf Micro UA Comment Urine Culture Comments 05/02/18 05/02/18 05/02/18 Range/Units 16:50 17:15 17:15 WBC (4.0-11.0) th/mm3 RBC (4.00-5.30) mil/mm3 Hgb (11.6-15.3) gm/dL Hct (35.0-46.0) % MCV (80.0-100.0) fL MCH (27.0-34.0) pg MCHC (32.0-36.0) % RDW (11.6-17.2) % Plt Count (150-450) th/mm3 MPV (7.0-11.0) fL Prelim Diff (Auto) Neut % (Auto) (16.0-70.0) % Lymph % (Auto) (9.0-44.0) % [place] % (Auto) (0.0-8.0) % Eos % (Auto) (0.0-4.0) % Baso % (Auto) (0.0-2.0) % Neut # (Auto) (1.8-7.7) th/mm3 Lymph # (Auto) (1.0-4.8) th/mm3 [place] # (Auto) (0.0-0.9) th/mm3 Eos # (Auto) (0.0-0.4) th/mm3 Baso # (Auto) (0.0-0.2) th/mm3 WBC Differential Seg Neuts % (Manual) (16-70) % Band Neuts % (Manual) (0-6) % Lymphocytes % (Manual) (9-44) % Monocytes % (Manual) (0-8) % Metamyelocytes % (Man) (0-1) % Abs Neuts (Manual) (1.8-7.7) th/mm3 Differential Comment Toxic Granulation (None) Platelet Estimate (Normal) Platelet Morphology (Normal) PT (9.8-11.6) sec INR Ratio APTT (24.3-30.1) sec Sodium (136-145) meq/L Potassium (3.5-5.1) meq/L Chloride (98-107) meq/L Carbon Dioxide (21.0-32.0) meq/L Anion Gap (5-15) meq/L BUN (7-18) mg/dL Creatinine (0.50-1.00) mg/dL Estimated GFR (>89) mL/min Random Glucose (74-106) mg/dL Lactic Acid 1.5 (0.4-2.0) mmol/L Calcium (8.5-10.1) mg/dL Total Bilirubin (0.2-1.0) mg/dL AST (15-37) U/L ALT (10-53) U/L Alkaline Phosphatase (45-117) U/L Ammonia 30 (11-32) mcmol/L Total Protein (6.4-8.2) g/dL Albumin (3.4-5.0) g/dL Lipase (73-393) U/L Urine Color [place] (Yellw/Straw) Urine Clarity Cloudy H (Clear) Urine pH 6.0 (5.0-8.5) Ur Specific [place] 1.011 (1.002-1.035) Urine Protein Negative (Neg-Trace) mg/dL Urine Glucose (UA) Negative (Negative) mg/dL Urine Ketones Negative (Negative) mg/dL Urine Occult Blood Large H (Negative) Urine Nitrate Negative (Negative) Urine Bilirubin Negative (Negative) Urine Urobilinogen 4 or greater (Less than 2) mg/dL Ur Leukocyte Esterase Negative (Negative) Urine RBC 3 (0-3) /hpf Urine WBC 12 H (0-5) /hpf Ur Squamous Epith Cells 13 (0-5) /hpf Urine Bacteria Rare H (None) /hpf Micro UA Comment Culture indicated Urine Culture Comments Culture indicated Imaging Data Attestation: I personally reviewed and interpreted this imaging study as follows : Radiologist's impression: Abdomen/Pelvis CT 05/02/18 15:10 CONCLUSION: 1. Anterior abdominal wall hernia containing a loop of small bowel with air and apparent surrounding inflammatory change. There is an abnormal bowel gas pattern and this is of concern for acute obstruction with possible strangulation. 2. New large cystic structure in the pelvis with air-fluid levels as well as additional cystic collections with air-fluid levels with represent additional phlegmon or abscesses. 3. Acute pancreatitis again noted with enlarged head of the pancreas with multiple calcifications and indistinctness. There are new cystic structures within the pancreas. There are multiple calcifications again noted. Pancreatic duct remains dilated. 4. Cirrhotic appearing liver with surrounding ascites. 5. Tiny gallstone again noted. Chest X-Ray 05/02/18 15:10 CONCLUSION: 1. Mild elevation of the right hemidiaphragm with concomitant atelectatic changes in the right lung base. 2. Lungs are otherwise clear. Heart size is normal. ECG Data EKG Prior to Arrival: No Attestation: I personally reviewed and interpreted this ECG as follows: Interpretation: EKG at 1513: Sinus tach at 112bpm, qt/qtc: 361/427 Discharge Plan Discharge Disposition Patient Disposition: 30 Still Patient Discharge Condition Condition: Serious Discharge Details Diagnosis: Acute pancreatitis, Acute hypokalemia, Acute hyponatremia Physicians Team ED Provider: Elza Bañuelos Primary Care Provider: UNKNOWN, Rxs /Orders / Referrals /Forms Prescriptions: No Action magnesium chloride [Mag 64] 64 mg Tablet,Delayed Release (Dr/Ec) 64 mg PO DAILY Qty: 30 RF: 0 ciprofloxacin HCl 500 mg Tablet 500 mg PO Q12H Qty: 14 RF: 0 Discharge Interventions Interventions: Vital Signs Last Done: 05/02/18 17:44 Status ED Status: With Doctor
--- NOTE | 2018-05-02 15:41 | XR ---
EXAM DATE: 05/02/2018 3:35 PM EDT AGE/SEX: 42 years / Female INDICATIONS: Chest pain. CLINICAL DATA: This is the patient's sequela encounter. Patient reports that signs and symptoms have been present for 1 month and indicates a pain score of 9/10. MEDICAL/SURGICAL HISTORY: Pancreatitis. None. COMPARISON: [facility], CHEST 1V SINGLE AP, 04/05/2018. . FINDINGS: A single AP view of the chest demonstrates mild elevation of the right hemidiaphragm with concomitant atelectatic changes in the right base. Left lung is clear. Heart size is normal. Osseous structures are intact. CONCLUSION: 1. Mild elevation of the right hemidiaphragm with concomitant atelectatic changes in the right lung base. 2. Lungs are otherwise clear. Heart size is normal. Electronically signed by: Ventura Ham MD 05/02/2018 3:40 PM EDT
[2018-05-02 16:36] LABS: Activated Partial Thrombo Time 27.1 sec (24.3-30.1); INR 1.2 Ratio; Prothrombin Time 11.8 sec (9.8-11.6)
[2018-05-02 16:51] LABS: Alanine Aminotransferase 16 U/L (10-53); Albumin 1.7 g/dL (3.4-5.0); Alkaline Phosphatase 203 U/L (45-117); Anion Gap 11 meq/L (5-15); Aspartate Aminotransferase 52 U/L (15-37); Blood Urea Nitrogen 21 mg/dL (7-18); Carbon Dioxide 29.9 meq/L (21.0-32.0); Chloride 86 meq/L (98-107); Glomerular Filtration Rate Greater Than 89 mL/min (>89); Glucose,Random 129 mg/dL (74-106); Lipase 7244 U/L (73-393); Sodium 127 meq/L (136-145); Total Protein 6.8 g/dL (6.4-8.2)
[2018-05-02 16:57] LABS: Baso # (Auto) 0.2 th/mm3 (0.0-0.2); Baso % (Auto) 1.4 % (0.0-2.0); Eos # (Auto) 0.1 th/mm3 (0.0-0.4); Eos % (Auto) 0.5 % (0.0-4.0); Hematocrit 37.3 % (35.0-46.0); Hemoglobin 12.7 gm/dL (11.6-15.3); Lymph # (Auto) 0.8 th/mm3 (1.0-4.8); Lymph % (Auto) 5.7 % (9.0-44.0); Mean Corpuscular HGB Conc 34.2 % (32.0-36.0); Mean Corpuscular Hemoglobin 30.5 pg (27.0-34.0); Mean Corpuscular Volume 89.4 fL (80.0-100.0); Mono # (Auto) 1.5 th/mm3 (0.0-0.9); Neut % (Auto) 82.4 % (16.0-70.0); Platelet Count 379 th/mm3 (150-450); Red Blood Count 4.18 mil/mm3 (4.00-5.30); Red Cell Distribution Width 14.1 % (11.6-17.2); White Blood Count 14.5 th/mm3 (4.0-11.0)
[2018-05-02 17:14] LABS: Potassium 2.8 meq/L (3.5-5.1)
[2018-05-02 17:19] LABS: Bacteria,Urine Rare /hpf; Bilirubin,Urine Negative (Negative); Clarity,Urine Cloudy (Clear); Color,Urine Amber (Yellw/Straw); Glucose,Urine (UA) Negative (Negative); Leukocyte Esterase,Urine Negative (Negative); Nitrite,Urine Negative (Negative); Specific Gravity,Urine 1.011 (1.002-1.035); Squamous Epithelial Cell,Urine 13 /hpf (0-5); Urobilinogen,Urine 4 or Greater mg/dL (Less than 2)
[2018-05-02 17:32] LABS: Lymphocytes 2 % (9-44); Metamyelocytes 1 % (0-1); Monocytes 8 % (0-8)
[2018-05-02 17:34] LABS: Platelet Estimate Normal (Normal); Platelet Morphology Clumped (Normal); Toxic Granulation 1+
--- NOTE | 2018-05-02 19:03 | CT ---
EXAM DATE: 05/02/2018 6:44 PM EDT AGE/SEX: 42 years / Female INDICATIONS: Generalized abdominal pain and pancreatitis. Abdominal hernia. CLINICAL DATA: This is the patient's initial encounter. Patient reports that signs and symptoms have been present for 1 day and indicates a pain score of 8/10. MEDICAL/SURGICAL HISTORY: Pancreatitis. Hypertension. . Abdominal surgery ORAL CONTRAST: No oral contrast ingested. RADIATION DOSE: 6.91 CTDI (mGy) COMPARISON: [facility] [place], CT ABDOMEN & PELVIS W CONTRAST, 04/05/2018. . TECHNIQUE: Multiple contiguous axial images were obtained through the abdomen and pelvis following b olus infusion of 75 ml Omnipaque 350 (iohexol) nonionic water-soluble contrast as a single exam dos e. No oral contrast ingested. Using automated exposure control and adjustment of the mA and/or kV ac cording to patient size, radiation dose was kept as low as reasonably achievable to obtain optimal di agnostic quality images. DICOM format image data is available electronically for review and comparis on. FINDINGS: Lower Lungs: The visualized lower lungs are clear. Liver: The liver remains mildly heterogeneous decreased in attenuation value with lobular contours. T here is no focal mass or ductal dilatation. The gallbladder remains within normal limits with a minut e calcification again identified measuring less than 1 mm. There is ascitic fluid now noted surroundi ng portions of the liver. Spleen: Homogeneous density without enlargement. Pancreas: The pancreas remains markedly abnormal. The head is enlarged and indistinct with multiple punctate calcifications. There are better defined cystic structures now noted in the pancreas the lar gest is in the head measuring up to approximately 1.8 cm. The pancreatic duct remains dilated and rosetta sures up to approximately 9 mm. There is a smaller cystic structure in the tail the pancreas measurin g 9 mm. Is a small amount of ill-defined fluid. Kidneys: Normal in size and shape. No evidence of mass or hydronephrosis. Adrenal Glands: Unremarkable. Aorta: The aorta and proximal iliac vessels are grossly unremarkable without aneurysmal dilation. Bowel/Mesentery: There is an abnormal bowel gas pattern with multiple loops of borderline dilated ai r-containing small bowel with multiple air-fluid levels. There is indistinctness in the mesentery. Th ere is a large ill-defined cystic collection in the anterior pelvis with air-fluid levels. This is ne w from the prior study and measures up to approximately 13 x 6 cm and is in continuity with the uteru s. There are several additional containing structures with air-fluid levels. No oral contrast was giv en limiting the sensitivity of the exam. It is unclear if the other air-fluid represent small bowel l oops or additional fluid collections or phlegmons. There is a moderate amount of ascitic fluid in the pelvis as well Abdominal Wall: An anterior abdominal wall hernia is again noted. This now contains a loop of air-co ntaining small bowel. There is mild increased density surrounding the hernia in the subcutaneous fat. There is a larger hernia more inferiorly. Retroperitoneum: No evidence of adenopathy in the retrocrural, para-aortic, or deep pelvic regions. Bladder: Contours are smooth. Reproductive Organs: No abnormal masses or calcifications seen. Inguinal: The inguinal region is unremarkable without evidence of adenopathy. Bony Structures: Unremarkable. CONCLUSION: 1. Anterior abdominal wall hernia containing a loop of small bowel with air and apparent surrounding inflammatory change. There is an abnormal bowel gas pattern and this is of concern for acute obstruc tion with possible strangulation. 2. New large cystic structure in the pelvis with air-fluid levels as well as additional cystic colle ctions with air-fluid levels with represent additional phlegmon or abscesses. 3. Acute pancreatitis again noted with enlarged head of the pancreas with multiple calcifications an d indistinctness. There are new cystic structures within the pancreas. There are multiple calcificati ons again noted. Pancreatic duct remains dilated. 4. Cirrhotic appearing liver with surrounding ascites. 5. Tiny gallstone again noted. Electronically signed by: Alfredo Melendez MD 05/02/2018 7:01 PM EDT
[2018-05-02] MEDS ORDERED: HYDROmorphone PF Inj 2 MG/ML Vial IV.PUSH PRN ×2 (19:48→20:00)
--- NOTE | 2018-05-02 20:25 | P.HPIM ---
History of Present Illness Primary Care Physician: UNKNOWN History of Present Illness: Mrs. Oh is a 42 year old female. She came into the hospital with abdominal pain. The abdominal pain has acutely worsened today. She says the pain has been present intermittently for about 2 weeks but it was not as severe in nature. She has been into the hospital previously and was told she has an abdominal ventral hernia. At that time there was no acute concerns or evidence of strangulation/incarceration. Tonight imaging shows evidence that there could be some bowel obstruction related to the abdominal hernia. Surgery has been notified. Other findings are hypokalemia. The patient's primary complaint is her acute abdominal pain. No other complaints at this time. - Diagnosis (1) Abdominal pain (2) Abdominal hernia (3) Acute pancreatitis Inpatient Certification: I certify that the inpatient services were ordered in accordance with Medicare regulations governing the order. This includes certification that hospital inpatient services are reasonable and necessary and in the case of services not specified as inpatient-only under 42 CFR 419.22(n), that they are appropriately provided as inpatient services in accordance to with the 2-midnight benchmark under 43 CFR 412.3(e) Estimated Total Length of Stay (Days): 3 Plans for Post Hospital Care: Home Review of Systems Constitutional: Denies chills, Denies fever(s), Denies malaise, Denies night sweats, Denies weakness Eyes: Denies blurry vision, Denies change in vision, Denies double vision Ears, Nose, Mouth, and Throat: Denies abnormal hearing, Denies bleeding gums, Denies change in voice, Denies nose pain Cardiovascular: Denies chest pain, Denies chest pain at rest, Denies chest pain with activity Respiratory: Denies cough, Denies shortness of breath, Denies wheezing Gastrointestinal: Reports abdominal pain, Denies black, tarry stools, Denies bright, red blood in stools Musculoskeletal: Denies abnormal walking, Denies back pain, Denies body aches Skin/Breast: Denies rash, Denies skin pain, Denies skin ulcer Neurologic: Denies abnormal hearing, Denies abnormal movements, Denies abnormal speech Psychiatric: Denies abnormal sleep pattern, Denies anxiety, Denies behavioral changes PMFSH - History History Provided By: Patient - Medical History Medical History: Medical History (Last Reviewed 05/02/18 @ 15:26 by Elza Bañuelos) Traumatic brain injury - Surgical History Surgical History: Surgical History (Last Reviewed 05/02/18 @ 15:26 by Elza Bañuelos) H/O abdominal surgery H/O brain surgery History of orthopedic surgery - Family History Family History: Family History (Last Updated 05/02/18 @ 21:23 by Jann Stevenson MD) Other Osteoarthritis - Tobacco History Second Hand Smoke Exposure: No Tobacco Use In Past 30 Days: Yes Smoking Status: Current every day smoker Tobacco Type: Cigarettes - Alcohol History How Often Do You Have a Drink Containing Alcohol: 2 to 4 times a month - Substance Use History Substance History: Past History - Immunization History Tetanus Immunization: Unsure Hx Influenza Vaccine This Season: No Medications and Allergies Active Medications: Active Medications Hydromorphone HCl (Dilaudid Pf Inj) 1 mg IV.PUSH Q4H PRN PRN Reason: Pain 7 to 10 Hydromorphone HCl (Dilaudid Pf Inj) 0.5 mg IV.PUSH Q4H PRN PRN Reason: PAIN 3 TO 6 Potassium Chloride (Kcl 20 Meq Premix Inj) 20 meq in 100 mls @ 50 mls/hr IV.SIG Q2H ALMA Stop: 05/02/18 22:59 Sodium Chloride (Ns Inj) 1,000 mls @ 100 mls/hr IV.CONT .Q10H ALMA Levofloxacin/Dextrose (Levaquin 750 Mg Premix Inj) 150 mls @ 100 mls/hr IV.SIG Q24H ALMA Metronidazole/Sodium Chloride (Flagyl 500 Mg Inj) 100 mls @ 100 mls/hr IV.SIG Q8H ALMA Ondansetron HCl (Zofran Inj) 4 mg IV.PUSH Q6H PRN PRN Reason: NAUSEA OR VOMITING Sodium Chloride (Ns Flush) 2 ml IV.FLUSH PRN PRN PRN Reason: FLUSH AFTER USING IV ACCESS Allergies Allergy/AdvReac Type Severity Reaction Status Date / Time amoxicillin Allergy Severe Hives Verified 04/05/18 19:19 penicillin G Allergy Severe Hives Verified 04/05/18 19:19 Exam Vital signs: Vital Signs 05/02/18 15:38 05/02/18 17:44 Pulse Rate 100 H 104 H Respiratory Rate 17 Blood Pressure 111/78 Pulse Oximetry 97 Narrative: GENERAL: NAD, A&Ox3 HEAD: Normocephalic. NECK: Supple, trachea midline. No lymphadenopathy. EYES: No scleral icterus. No injection or drainage. CARDIOVASCULAR: Regular rate and rhythm without murmurs, gallops, or rubs. RESPIRATORY: Breath sounds equal bilaterally. No accessory muscle use. GASTROINTESTINAL: Distended and tender abdomen. Palpable anterior hernia. Hypoactive bowel sounds. Mild guarding. MUSCULOSKELETAL: No cyanosis, or edema. SKIN: Warm and dry. NEURO: No focal neurological deficits. Results - Labs CBC & Chem 7: 05/02/18 15:10 05/02/18 15:10 Labs: Short CBC 05/02/18 Range/Units 15:10 WBC 14.5 H (4.0-11.0) th/mm3 Hgb 12.7 (11.6-15.3) gm/dL Hct 37.3 (35.0-46.0) % Plt Count 379 D (150-450) th/mm3 BMP 05/02/18 15:10 Sodium 127 L Potassium 2.8 L* Chloride 86 L Carbon Dioxide 29.9 BUN 21 H Creatinine 0.68 Calcium 8.0 L Liver Function 05/02/18 Range/Units 15:10 Total Bilirubin 0.6 (0.2-1.0) mg/dL AST 52 H (15-37) U/L ALT 16 (10-53) U/L Alkaline Phosphatase 203 H (45-117) U/L Albumin 1.7 L (3.4-5.0) g/dL Urine 05/02/18 Range/Units 16:50 Urine Color Kati (Yellw/Straw) Urine Clarity Cloudy H (Clear) Urine pH 6.0 (5.0-8.5) Ur Specific [place] 1.011 (1.002-1.035) Urine Protein Negative (Neg-Trace) mg/dL Urine Glucose (UA) Negative (Negative) mg/dL - Imaging Impressions Abdomen/Pelvis CT 05/02/18 15:10 CONCLUSION: 1. Anterior abdominal wall hernia containing a loop of small bowel with air and apparent surrounding inflammatory change. There is an abnormal bowel gas pattern and this is of concern for acute obstruction with possible strangulation. 2. New large cystic structure in the pelvis with air-fluid levels as well as additional cystic collections with air-fluid levels with represent additional phlegmon or abscesses. 3. Acute pancreatitis again noted with enlarged head of the pancreas with multiple calcifications and indistinctness. There are new cystic structures within the pancreas. There are multiple calcifications again noted. Pancreatic duct remains dilated. 4. Cirrhotic appearing liver with surrounding ascites. 5. Tiny gallstone again noted. Chest X-Ray 05/02/18 15:10 CONCLUSION: 1. Mild elevation of the right hemidiaphragm with concomitant atelectatic changes in the right lung base. 2. Lungs are otherwise clear. Heart size is normal. Caprini VTE Risk Assessment Caprini VTE Risk Assessment: No/Low Risk (score <= 1) Caprini Risk Assessment Model: Point Value = 1 Point Value = 2 Point Value = 3 Point Value = 5 Age 41-60 Minor surgery BMI > 25 kg/m2 Swollen legs Varicose veins or History of unexplained or recurrent spontaneous Oral contraceptives or hormone replacement Sepsis (< 1 month) Serious lung disease, including pneumonia (< 1 month) Abnormal pulmonary function Acute myocardial infarction Congestive heart failure (< 1 month) History of inflammatory bowel disease Medical patient at bed rest Age 61-74 Arthroscopic surgery Major open surgery (> 45 min) Laparoscopic surgery (> 45 min) Malignancy Confined to bed (> 72 hours) Immobilizing plaster cast Central venous access Age >= 75 History of VTE Family history of VTE Factor V Leiden Prothrombin [id number] Lupus anticoagulant Anticardiolipin antibodies Elevated serum homocysteine Heparin-induced thrombocytopenia Other congenital or acquired thrombophilia Stroke (< 1 month) Elective arthroplasty Hip, pelvis, or leg fracture Acute spinal cord injury (< 1 month) Prophylaxis Regimen: Total Risk Factor Score Risk Level Prophylaxis Regimen 0-1 Low Early ambulation 2 Moderate Order ONE of the following: *Sequential Compression Device (SCD) *Heparin 5000 units SQ BID 3-4 Higher Order ONE of the following medications: *Heparin 5000 units SQ TID *Enoxaparin/Lovenox 40 mg SQ daily (WT < 150 kg, CrCl > 30 mL/min) *Enoxaparin/Lovenox 30 mg SQ daily (WT < 150 kg, CrCl > 10-29 mL/min) *Enoxaparin/Lovenox 30 mg SQ BID (WT < 150 kg, CrCl > 30 mL/min) AND/OR *Sequential Compression Device (SCD) 5 or more Highest Order ONE of the following medications: *Heparin 5000 units SQ TID (Preferred with Epidurals) *Enoxaparin/Lovenox 40 mg SQ daily (WT < 150 kg, CrCl > 30 mL/min) *Enoxaparin/Lovenox 30 mg SQ daily (WT < 150 kg, CrCl > 10-29 mL/min) *Enoxaparin/Lovenox 30 mg SQ BID (WT < 150 kg, CrCl > 30 mL/min) AND *Sequential Compression Device (SCD) Assessment and Plan - Assessment (1) Abdominal pain Code(s): R10.9 - Unspecified abdominal pain Status: Acute (2) Abdominal hernia Code(s): K46.9 - Unspecified abdominal hernia without obstruction or gangrene Status: Acute (3) Acute pancreatitis Code(s): K85.90 - Acute pancreatitis without necrosis or infection, unspecified Status: Acute - Plan 42-year-old female admitted secondary to abdominal pain with ventral abdominal hernia and possible bowel strangulation. Ventral abdominal hernia Acute abdominal pain Possible bowel strangulation Surgery consulted N.p.o. IV hydration As needed pain treatments Acute pancreatitis IV hydration As needed pain treatments Follow lipase Pain treatments as needed History of traumatic brain injury History of brain surgery Follow clinically DVT prophylaxis SCDs
--- NOTE | 2018-05-02 20:59 | ECG ---
Date Performed: 05/02/2018 Time Performed: 15:13:42 PTAGE: 42 years EKG: SINUS TACHYCARDIA WITH SHORT TN INTERVAL LEFT ATRIAL ENLARGEMENT NONSPECIFIC T-WAVE ABNORMA LITY ABNORMAL ECG NO PREVIOUS TRACING DOCTOR: Elliot Galaviz Interpretating Date/Time 05/02/2018 20:57:32
[2018-05-02] MEDS: Potassium Chlor 20 mEq Premix 20 MEQ/100 ML PIGGYBACK IV.SIG SCH (21:01)
[2018-05-02] MEDS: Sod Chloride 0.9% Inj 1,000 ML IV.CONT SCH (21:02)
--- NOTE | 2018-05-02 21:55 | P.CONGS ---
[facility] Consult Note Consult date: 05/02/18 ( CONSULTATION NOTE FOR SURGICAL ATTENDING, DR. DOUGLAS SMITH ) Reason for consult: abdominal pain Narrative: Patient came to the emergency room complaining abdominal pain she is a very poor historian ER physician personnel called me to evaluate the patient after his CT scan showed what appeared to be a possible incarcerated hernia and intra- abdominal abscess. Patient is a extreme pain in the abdomen she is not able to give me much history other than she had some surgery she has had pancreatitis and somebody told her she had a hernia a few weeks ago Review of Systems unobtainable due to mental condition, unobtainable due to mental status, other ( Reviewed in the medical records) PMFSH - History History Provided By: Patient - Medical / Surgical Hx Neg / Unobtainable Medical Problems Denied: Unable to Obtain Surgical History: Unable to Obtain - Medical History Medical History: Medical History (Last Updated 05/02/18 @ 21:51 by Douglas Smith MD) Traumatic brain injury (Acute) H/O Meckel's diverticulum - Surgical History Surgical History: Surgical History (Last Updated 05/02/18 @ 21:51 by Douglas Smith MD) History of exploratory laparotomy (Acute) H/O abdominal surgery (Acute) H/O brain surgery (Acute) History of orthopedic surgery - Family History Family History: Family History (Last Updated 05/02/18 @ 21:23 by Jann Stevenson MD) Other Osteoarthritis - Tobacco History Second Hand Smoke Exposure: No Tobacco Use In Past 30 Days: Yes Smoking Status: Current every day smoker Tobacco Type: Cigarettes - Alcohol History How Often Do You Have a Drink Containing Alcohol: 2 to 4 times a month - Substance Use History Substance History: Past History - Immunization History Tetanus Immunization: Unsure Hx Influenza Vaccine This Season: No Medications and Allergies Active Medications: Active Medications Hydromorphone HCl (Dilaudid Pf Inj) 1 mg IV.PUSH Q4H PRN PRN Reason: Pain 7 to 10 Last Admin: 05/02/18 21:13 Dose: 1 mg Hydromorphone HCl (Dilaudid Pf Inj) 0.5 mg IV.PUSH Q4H PRN PRN Reason: PAIN 3 TO 6 Potassium Chloride (Kcl 20 Meq Premix Inj) 20 meq in 100 mls @ 50 mls/hr IV.SIG Q2H ALMA Stop: 05/02/18 22:59 Last Admin: 05/02/18 21:01 Dose: 50 mls/hr Sodium Chloride (Ns Inj) 1,000 mls @ 100 mls/hr IV.CONT .Q10H ALMA Last Admin: 05/02/18 21:02 Dose: 100 mls/hr Levofloxacin/Dextrose (Levaquin 750 Mg Premix Inj) 150 mls @ 100 mls/hr IV.SIG Q24H ALMA Last Admin: 05/02/18 21:12 Dose: 100 mls/hr Metronidazole/Sodium Chloride (Flagyl 500 Mg Inj) 100 mls @ 100 mls/hr IV.SIG Q8H ALMA Ondansetron HCl (Zofran Inj) 4 mg IV.PUSH Q6H PRN PRN Reason: NAUSEA OR VOMITING Sodium Chloride (Ns Flush) 2 ml IV.FLUSH PRN PRN PRN Reason: FLUSH AFTER USING IV ACCESS Allergies Allergy/AdvReac Type Severity Reaction Status Date / Time amoxicillin Allergy Severe Hives Verified 04/05/18 19:19 penicillin G Allergy Severe Hives Verified 04/05/18 19:19 Exam Vital signs: Vital Signs 05/02/18 15:38 05/02/18 17:44 05/02/18 21:36 Pulse Rate 100 H 104 H 107 H Respiratory Rate 17 20 Blood Pressure 111/78 132/85 Pulse Oximetry 97 - Constitutional severe distress, chronically ill appearing - Routine HEENT Exam Head: Present: normocephalic Eye: Present: EOMI ENT: Present: mucous membranes moist - Routine Respiratory Exam Present: accessory muscle use - Routine Cardiovascular Exam Present: tachycardia - Routine Abdominal Exam Present: guarding, firm, rigid, surgical scars - Routine Neurological Exam Present: sensory deficit, altered mental status - Additional findings Additional findings: ITS Impressions Abdomen/Pelvis CT 05/02/18 15:10 CONCLUSION: 1. Anterior abdominal wall hernia containing a loop of small bowel with air and apparent surrounding inflammatory change. There is an abnormal bowel gas pattern and this is of concern for acute obstruction with possible strangulation. 2. New large cystic structure in the pelvis with air-fluid levels as well as additional cystic collections with air-fluid levels with represent additional phlegmon or abscesses. 3. Acute pancreatitis again noted with enlarged head of the pancreas with multiple calcifications and indistinctness. There are new cystic structures within the pancreas. There are multiple calcifications again noted. Pancreatic duct remains dilated. 4. Cirrhotic appearing liver with surrounding ascites. 5. Tiny gallstone again noted. Chest X-Ray 05/02/18 15:10 CONCLUSION: 1. Mild elevation of the right hemidiaphragm with concomitant atelectatic changes in the right lung base. 2. Lungs are otherwise clear. Heart size is normal. Laboratory Last Values WBC 14.5 th/mm3 (4.0-11.0) H 05/02/18 15:10 RBC 4.18 mil/mm3 (4.00-5.30) 05/02/18 15:10 Hgb 12.7 gm/dL (11.6-15.3) 05/02/18 15:10 Hct 37.3 % (35.0-46.0) 05/02/18 15:10 MCV 89.4 fL (80.0-100.0) 05/02/18 15:10 MCH 30.5 pg (27.0-34.0) 05/02/18 15:10 MCHC 34.2 % (32.0-36.0) 05/02/18 15:10 RDW 14.1 % (11.6-17.2) 05/02/18 15:10 Plt Count 379 th/mm3 (150-450) D 05/02/18 15:10 MPV 9.0 fL (7.0-11.0) 05/02/18 15:10 Prelim Diff (Auto) Slide review pending 05/02/18 15:10 Neut % (Auto) 82.4 % (16.0-70.0) H 05/02/18 15:10 Lymph % (Auto) 5.7 % (9.0-44.0) L 05/02/18 15:10 [place] % (Auto) 10.0 % (0.0-8.0) H 05/02/18 15:10 Eos % (Auto) 0.5 % (0.0-4.0) 05/02/18 15:10 Baso % (Auto) 1.4 % (0.0-2.0) 05/02/18 15:10 Neut # (Auto) 12.0 th/mm3 (1.8-7.7) H 05/02/18 15:10 Lymph # (Auto) 0.8 th/mm3 (1.0-4.8) L 05/02/18 15:10 [place] # (Auto) 1.5 th/mm3 (0.0-0.9) H 05/02/18 15:10 Eos # (Auto) 0.1 th/mm3 (0.0-0.4) 05/02/18 15:10 Baso # (Auto) 0.2 th/mm3 (0.0-0.2) 05/02/18 15:10 WBC Differential Manual diff final 05/02/18 15:10 Seg Neuts % (Manual) 81 % (16-70) H 05/02/18 15:10 Band Neuts % (Manual) 8 % (0-6) H 05/02/18 15:10 Lymphocytes % (Manual) 2 % (9-44) L 05/02/18 15:10 Monocytes % (Manual) 8 % (0-8) 05/02/18 15:10 Metamyelocytes % (Man) 1 % (0-1) 05/02/18 15:10 Abs Neuts (Manual) 13.1 th/mm3 (1.8-7.7) H 05/02/18 15:10 Differential Comment . 05/02/18 15:10 Toxic Granulation 1+ (None) H 05/02/18 15:10 Platelet Estimate Normal (Normal) 05/02/18 15:10 Platelet Morphology Clumped (Normal) H 05/02/18 15:10 PT 11.8 sec (9.8-11.6) H 05/02/18 15:10 INR 1.2 Ratio 05/02/18 15:10 APTT 27.1 sec (24.3-30.1) 05/02/18 15:10 Sodium 127 meq/L (136-145) L 05/02/18 15:10 Potassium 2.8 meq/L (3.5-5.1) L* 05/02/18 15:10 Chloride 86 meq/L (98-107) L 05/02/18 15:10 Carbon Dioxide 29.9 meq/L (21.0-32.0) 05/02/18 15:10 Anion Gap 11 meq/L (5-15) 05/02/18 15:10 BUN 21 mg/dL (7-18) H 05/02/18 15:10 Creatinine 0.68 mg/dL (0.50-1.00) 05/02/18 15:10 Estimated GFR Greater than 89 mL/min (>89) 05/02/18 15:10 Random Glucose 129 mg/dL (74-106) H 05/02/18 15:10 Lactic Acid 1.5 mmol/L (0.4-2.0) 05/02/18 17:15 Calcium 8.0 mg/dL (8.5-10.1) L 05/02/18 15:10 Total Bilirubin 0.6 mg/dL (0.2-1.0) 05/02/18 15:10 AST 52 U/L (15-37) H 05/02/18 15:10 ALT 16 U/L (10-53) 05/02/18 15:10 Alkaline Phosphatase 203 U/L (45-117) H 05/02/18 15:10 Ammonia 30 mcmol/L (11-32) 05/02/18 17:15 Total Protein 6.8 g/dL (6.4-8.2) 05/02/18 15:10 Albumin 1.7 g/dL (3.4-5.0) L 05/02/18 15:10 Lipase 7244 U/L (73-393) H 05/02/18 15:10 Urine Color Kati (Yellw/Straw) 05/02/18 16:50 Urine Clarity Cloudy (Clear) H 05/02/18 16:50 Urine pH 6.0 (5.0-8.5) 05/02/18 16:50 Ur Specific [place] 1.011 (1.002-1.035) 05/02/18 16:50 Urine Protein Negative mg/dL (Neg-Trace) 05/02/18 16:50 Urine Glucose (UA) Negative mg/dL (Negative) 05/02/18 16:50 Urine Ketones Negative mg/dL (Negative) 05/02/18 16:50 Urine Occult Blood Large (Negative) H 05/02/18 16:50 Urine Nitrate Negative (Negative) 05/02/18 16:50 Urine Bilirubin Negative (Negative) 05/02/18 16:50 Urine Urobilinogen 4 or greater mg/dL (Less than 2) 05/02/18 16:50 Ur Leukocyte Esterase Negative (Negative) 05/02/18 16:50 Urine RBC 3 /hpf (0-3) 05/02/18 16:50 Urine WBC 12 /hpf (0-5) H 05/02/18 16:50 Ur Squamous Epith Cells 13 /hpf (0-5) 05/02/18 16:50 Urine Bacteria Rare /hpf (None) H 05/02/18 16:50 Micro UA Comment Culture indicated 05/02/18 16:50 Urine Culture Comments Culture indicated 05/02/18 16:50 Results - Labs 05/03/18 02:05 05/03/18 02:05 Abnormal lab results 05/02/18 05/02/18 05/02/18 Range/Units 15:10 15:10 15:10 WBC 14.5 H (4.0-11.0) th/mm3 Neut % (Auto) 82.4 H (16.0-70.0) % Lymph % (Auto) 5.7 L (9.0-44.0) % [place] % (Auto) 10.0 H (0.0-8.0) % Neut # (Auto) 12.0 H (1.8-7.7) th/mm3 Lymph # (Auto) 0.8 L (1.0-4.8) th/mm3 [place] # (Auto) 1.5 H (0.0-0.9) th/mm3 Seg Neuts % (Manual) 81 H (16-70) % Band Neuts % (Manual) 8 H (0-6) % Lymphocytes % (Manual) 2 L (9-44) % Abs Neuts (Manual) 13.1 H (1.8-7.7) th/mm3 Toxic Granulation 1+ H (None) Platelet Morphology Clumped H (Normal) PT 11.8 H (9.8-11.6) sec Sodium 127 L (136-145) meq/L Potassium 2.8 L* (3.5-5.1) meq/L Chloride 86 L (98-107) meq/L BUN 21 H (7-18) mg/dL Random Glucose 129 H (74-106) mg/dL Calcium 8.0 L (8.5-10.1) mg/dL AST 52 H (15-37) U/L Alkaline Phosphatase 203 H (45-117) U/L Albumin 1.7 L (3.4-5.0) g/dL Lipase 7244 H (73-393) U/L Urine Clarity (Clear) Urine Occult Blood (Negative) Urine WBC (0-5) /hpf Urine Bacteria (None) /hpf 05/02/18 Range/Units 16:50 WBC (4.0-11.0) th/mm3 Neut % (Auto) (16.0-70.0) % Lymph % (Auto) (9.0-44.0) % [place] % (Auto) (0.0-8.0) % Neut # (Auto) (1.8-7.7) th/mm3 Lymph # (Auto) (1.0-4.8) th/mm3 [place] # (Auto) (0.0-0.9) th/mm3 Seg Neuts % (Manual) (16-70) % Band Neuts % (Manual) (0-6) % Lymphocytes % (Manual) (9-44) % Abs Neuts (Manual) (1.8-7.7) th/mm3 Toxic Granulation (None) Platelet Morphology (Normal) PT (9.8-11.6) sec Sodium (136-145) meq/L Potassium (3.5-5.1) meq/L Chloride (98-107) meq/L BUN (7-18) mg/dL Random Glucose (74-106) mg/dL Calcium (8.5-10.1) mg/dL AST (15-37) U/L Alkaline Phosphatase (45-117) U/L Albumin (3.4-5.0) g/dL Lipase (73-393) U/L Urine Clarity Cloudy H (Clear) Urine Occult Blood Large H (Negative) Urine WBC 12 H (0-5) /hpf Urine Bacteria Rare H (None) /hpf Diabetes panel 05/02/18 Range/Units 15:10 Sodium 127 L (136-145) meq/L Potassium 2.8 L* (3.5-5.1) meq/L Chloride 86 L (98-107) meq/L Carbon Dioxide 29.9 (21.0-32.0) meq/L BUN 21 H (7-18) mg/dL Creatinine 0.68 (0.50-1.00) mg/dL Calcium 8.0 L (8.5-10.1) mg/dL AST 52 H (15-37) U/L ALT 16 (10-53) U/L Alkaline Phosphatase 203 H (45-117) U/L Total Protein 6.8 (6.4-8.2) g/dL Albumin 1.7 L (3.4-5.0) g/dL Calcium panel 05/02/18 Range/Units 15:10 Calcium 8.0 L (8.5-10.1) mg/dL Albumin 1.7 L (3.4-5.0) g/dL Pituitary panel 05/02/18 Range/Units 15:10 Sodium 127 L (136-145) meq/L Potassium 2.8 L* (3.5-5.1) meq/L Chloride 86 L (98-107) meq/L Carbon Dioxide 29.9 (21.0-32.0) meq/L BUN 21 H (7-18) mg/dL Creatinine 0.68 (0.50-1.00) mg/dL Calcium 8.0 L (8.5-10.1) mg/dL Adrenal panel 05/02/18 Range/Units 15:10 Sodium 127 L (136-145) meq/L Potassium 2.8 L* (3.5-5.1) meq/L Chloride 86 L (98-107) meq/L Carbon Dioxide 29.9 (21.0-32.0) meq/L BUN 21 H (7-18) mg/dL Creatinine 0.68 (0.50-1.00) mg/dL Calcium 8.0 L (8.5-10.1) mg/dL Total Bilirubin 0.6 (0.2-1.0) mg/dL AST 52 H (15-37) U/L ALT 16 (10-53) U/L Alkaline Phosphatase 203 H (45-117) U/L Total Protein 6.8 (6.4-8.2) g/dL Albumin 1.7 L (3.4-5.0) g/dL All other labs normal. - Imaging Abdominal x-ray: report reviewed, image reviewed CT scan - abdomen: report reviewed, image reviewed CT scan - pelvis: report reviewed, image reviewed Assessment and Plan - Assessment (1) Intra-abdominal abscess Code(s): K65.1 - Peritoneal abscess Status: Acute (2) Incisional hernia of anterior abdominal wall with obstruction Code(s): K43.0 - Incisional hernia with obstruction, without gangrene Status: Acute (3) Incisional hernia of anterior abdominal wall with obstruction and gangrene Code(s): K43.1 - Incisional hernia with gangrene Status: Acute (4) Acute pancreatitis Code(s): K85.90 - Acute pancreatitis without necrosis or infection, unspecified Status: Chronic Qualifiers: Pancreatitis type: alcohol induced (5) Acute on chronic pancreatitis Code(s): K85.90 - Acute pancreatitis without necrosis or infection, unspecified ; K86.1 - Other chronic pancreatitis Status: Chronic (6) Abdominal pain Code(s): R10.9 - Unspecified abdominal pain Status: Chronic Qualifiers: Abdominal location: generalized Qualified Code(s): R10.84 - Generalized abdominal pain (7) H/O brain surgery Code(s): Z98.890 - Other specified postprocedural states Status: Chronic - Attending Attestation CONSULTATION NOTE FOR SURGICAL ATTENDING, DR. DOUGLAS SMITH I attest that I had a [id number] encounter with the patient on the same day, and personally performed and documented my assessment and findings in the medical record. The following services were provided during this hospital visit: Chart data review, vital sign assessments/reviewing monitor data Review of consultations notes if present. Medication orders/review and/or management Ordering and/or reviewing lab tests Ordering and/or interpreting/reviewing x-rays and/or diagnostic studies Care of the patient and discussion of the patient with the care team Documentation time To help prompt me to consider important information that might be impacting today's encounter and assessment, Information from prior notes written by myself or my colleagues may have been "brought forward/copy and pasted" into today's note.
[2018-05-02] MEDS ORDERED: Lidocaine 1%/Epinephrine 1:100,000 Inj 20 ML Vial ONE (22:35)
[2018-05-02] MEDS ORDERED: Bupivacaine/Epinephrine Inj 0.25% 50 ML Vial ONE (22:35)
[2018-05-03 00:13] LABS: Hematocrit 27.9 % (35.0-46.0); Hemoglobin 9.3 gm/dL (11.6-15.3)
[2018-05-03] MEDS: Sod Chloride 0.9% Inj 1,000 ML IV.SIG SCH ×2 (01:30→03:24)
[2018-05-03] MEDS: Phenylephrine Inj 40 MG in Dextrose 5% in Water Inj 496 ML IV.CONT PRN ×8 (01:34→12:58)
[2018-05-03] MEDS ORDERED: fentaNYL Citrate Inj 100 MCG/2 ML Ampul ONE (01:45)
[2018-05-03 02:04] LABS: ABG Base Excess -3.4 mmol/L (-2-2); ABG PCO2 36 mmHg (38-42); ABG PO2 143 mmHg (61-120)
--- NOTE | 2018-05-03 02:18 | MP ---
cc: Douglas Smith MD DATE OF OPERATION: 05/02/2018 PREOPERATIVE DIAGNOSES: Hernia with questionable incarceration with intraabdominal abscess. POSTOPERATIVE DIAGNOSES: 1. Hernia incarcerated viable small bowel. 2. Pelvic abscess. 3. Intra-abdominal abscess. 4. Perihepatic abscess. 5. Abscess around the uterus with fairly inflamed attached tissue down the pelvis with difficult to identify anatomy. 6. Massive adhesions of the abd from previous surgery PROCEDURES PERFORMED: 1. Exploratory laparotomy. 2. Partial omentectomy. 3. Drainage of pelvic abscess. 4. Drainage of intraabdominal abscess. 5. Drainage of perihepatic abscess. 6. Application of VAC device for temporary closure of the abdomen. 7. Lysis of massive adhesions ANESTHESIA: General. SURGEON: Douglas Smith MD HYDRAULIC DREDGE OPERATOR: Ms. Estelle Wilde, medical student. INDICATIONS: A 42-year-old female who came into the emergency room, was found to have a fairly tender abdomen. CT scan showed a sizable pelvic abdominal abscess with fluid around the liver. She also has an incisional hernia. Says she has chronic pancreatitis. PROCEDURE: The patient was taken to the operating room and placed in the supine position. After anesthesia, her abdomen was prepped with Betadine. Anesthesia placed an NG tube and a central line and a Franklin catheter. We made an incision from the pubis up to above the umbilicus. We entered the peritoneum of the hernia sac. We were able to get into the intra-abdominal cavity. There was a fair amount of old blood that was in the abdomen and then down the pelvis, we identified a fairly sizable abscess. This was cultured and evacuated. With the dissection, I am able to identify the cecum that is a fairly inflamed. I do not see an appendix. The ascending colon was inflamed as well. She has an abscess around the liver, which was evacuated and irrigated. The transverse colon appears normal. Stomach has an NG tube, palpated, feels normal. Her omentum is splayed out and stuck down in the pelvis, and this was gently elevated using blunt dissection, the electrocautery device and the Harmonic scalpel. A portion of the omentum needs to be removed because it is oozing and partially necrotic and for this reason, a partial omentectomy was performed. I then run the small bowel from the ileocecal valve all the way to the ligament of Treitz can see a previous anastomosis that is well healed no obvious bowel perforation it has some associated inflammatory process from the pelvis The pelvis was then essentially frozen, very difficult to identify anatomy with the inflammatory process. we are able to identify the sigmoid colon that appears just inflamed without evidence of perforation. She has no evidence of diverticula, but the anatomical planes were lost deep into the pelvis. Behind the uterus, it is somewhat boggy, edematous and erythematous. A second abscess was identified in a portion of the pouch of Casey, which is evacuated, cultured as well. Cannot really identify the ovaries because of the inflammatory process and the area down the pelvis is oozing with no active arterial bleeding. With the abscesses seen on the CT scan, all I feel appropriately drained and no identifiable source in the small bowel,or the large bowel that I can see. I elected to pack the area down the pelvis that is oozing with 2 lap pads and then placed the VAC ABThera temporary closure device because at this portion, with her chronic medical problems, malnutrition and ooziness of the tissue planes, that I would temporarily close the abdomen and bring her back after stabilization in the intensive care unit. The VAC device is placed in the typical fashion and placed onto suction. The patient will remain intubated. I have already talked to Dr. Kingston, the it systems manager, to fill him in on the case. PLAN: Return to the operating room with a consultation with safety leader/oncologist possibly and she will most likely require examination under anesthesia with a rigid sigmoidoscopy. MD TUSHAR Doll/john/jose j , 12:56 AM , 01:05 AM [email or web address]
[2018-05-03 02:23] LABS: Baso # (Auto) 0.1 th/mm3 (0.0-0.2); Baso % (Auto) 0.2 % (0.0-2.0); Eos # (Auto) 0.2 th/mm3 (0.0-0.4); Eos % (Auto) 0.8 % (0.0-4.0); Hematocrit 25.1 % (35.0-46.0); Hemoglobin 8.3 gm/dL (11.6-15.3); Lymph # (Auto) 0.9 th/mm3 (1.0-4.8); Mean Corpuscular HGB Conc 33.1 % (32.0-36.0); Mean Corpuscular Hemoglobin 30.3 pg (27.0-34.0); Mean Corpuscular Volume 91.7 fL (80.0-100.0); Mean Platelet Volume 8.6 fL (7.0-11.0); Mono % (Auto) 3.6 % (0.0-8.0); Neut % (Auto) 92.4 % (16.0-70.0); Platelet Count 367 th/mm3 (150-450); Red Blood Count 2.74 mil/mm3 (4.00-5.30); Red Cell Distribution Width 13.8 % (11.6-17.2); White Blood Count 29.2 th/mm3 (4.0-11.0)
--- NOTE | 2018-05-03 02:31 | XR ---
EXAM DATE: 05/03/2018 2:01 AM EDT AGE/SEX: 42 years / Female INDICATIONS: Central line placement. CLINICAL DATA: This is the patient's initial encounter. Patient reports that signs and symptoms have been present for 1 day and indicates a pain score of Nonresponsive. MEDICAL/SURGICAL HISTORY: Pancreatitis. None. COMPARISON: [facility], CHEST 1V SINGLE AP, 05/02/2018. . FINDINGS: A single AP view of the chest demonstrates minimal right basilar density. Left lung clear. Endotrach eal tube 5 mm above the arti. Nasogastric tube with tip in stomach. Left subclavian central line wi th tip in the SVC. No pneumothorax. The cardiomediastinal contours are unremarkable. Osseous structu res are intact. CONCLUSION: 1. Right basilar density. 2. Endotracheal tube 5 mm above the arti. Electronically signed by: Marc Whatley MD 05/03/2018 2:30 AM EDT
[2018-05-03] MEDS: Propofol 1000 mg/100 ml Inj 1,000 MG/100 ML BOTTLE IV.CONT PRN ×3 (02:41→22:43)
[2018-05-03 03:09] LABS: Alanine Aminotransferase 10 U/L (10-53); Alkaline Phosphatase 107 U/L (45-117); Anion Gap 11 meq/L (5-15); Aspartate Aminotransferase 33 U/L (15-37); Blood Urea Nitrogen 16 mg/dL (7-18); Calcium 6.3 mg/dL (8.5-10.1); Carbon Dioxide 24.5 meq/L (21.0-32.0); Chloride 99 meq/L (98-107); Glomerular Filtration Rate Greater Than 89 mL/min (>89); Glucose,Random 157 mg/dL (74-106); Lipase 4768 U/L (73-393); Potassium 3.9 meq/L (3.5-5.1); Sodium 134 meq/L (136-145); Total Protein 4.2 g/dL (6.4-8.2)
[2018-05-03] MEDS: fentaNYL 10 mcg/mL Premix Drip 2,500 MCG/250 ML BAG IV.SIG PRN ×2 (03:14→16:57)
--- NOTE | 2018-05-03 04:18 | P.HPCC ---
History of Present Illness Primary Care Physician: UNKNOWN History of Present Illness: Mrs. Oh is a 42 year old female. She came into the hospital with abdominal pain. The abdominal pain has acutely worsened today. She says the pain has been present intermittently for about 2 weeks but it was not as severe in nature. She has been into the hospital previously and was told she has an abdominal ventral hernia. At that time there was no acute concerns or evidence of strangulation/incarceration. Tonight imaging shows evidence that there could be some bowel obstruction related to the abdominal hernia. Surgery has been notified. Other findings are hypokalemia. The patient's primary complaint is her acute abdominal pain. No other complaints at this time. Inpatient Certification: I certify that the inpatient services were ordered in accordance with Medicare regulations governing the order. This includes certification that hospital inpatient services are reasonable and necessary and in the case of services not specified as inpatient-only under 42 CFR 419.22(n), that they are appropriately provided as inpatient services in accordance to with the 2-midnight benchmark under 43 CFR 412.3(e) Estimated Total Length of Stay (Days): 3 Plans for Post Hospital Care: Home [facility] - History History Provided By: Patient - Medical / Surgical Hx Neg / Unobtainable Medical Problems Denied: Unable to Obtain - Medical History Medical History: Medical History (Last Updated 05/02/18 @ 21:51 by Douglas Smith MD) Traumatic brain injury (Acute) H/O Meckel's diverticulum - Surgical History Surgical History: Surgical History (Last Updated 05/02/18 @ 21:51 by Douglas Smith MD) History of exploratory laparotomy (Acute) H/O abdominal surgery (Acute) H/O brain surgery (Chronic) History of orthopedic surgery - Family History Family History: Family History (Last Updated 05/02/18 @ 21:23 by Jann Stevenson MD) Other Osteoarthritis - Tobacco History Second Hand Smoke Exposure: No Tobacco Use In Past 30 Days: Yes Smoking Status: Current every day smoker Tobacco Type: Cigarettes - Alcohol History How Often Do You Have a Drink Containing Alcohol: 2 to 4 times a month - Substance Use History Substance History: Past History - Immunization History Tetanus Immunization: Unsure Hx Influenza Vaccine This Season: No Medications and Allergies Active Medications: Active Medications Hydromorphone HCl (Dilaudid Pf Inj) 1 mg IV.PUSH Q4H PRN PRN Reason: Pain 7 to 10 Last Admin: 05/02/18 21:13 Dose: 1 mg Hydromorphone HCl (Dilaudid Pf Inj) 0.5 mg IV.PUSH Q4H PRN PRN Reason: PAIN 3 TO 6 Sodium Chloride (Ns Inj) 1,000 mls @ 100 mls/hr IV.CONT .Q10H [facility] Last Admin: 05/02/18 21:02 Dose: 100 mls/hr Levofloxacin/Dextrose (Levaquin 750 Mg Premix Inj) 150 mls @ 100 mls/hr IV.SIG Q24H [facility] Last Admin: 05/02/18 21:12 Dose: 100 mls/hr Metronidazole/Sodium Chloride (Flagyl 500 Mg Inj) 100 mls @ 100 mls/hr IV.SIG Q8H [facility] Last Admin: 05/03/18 03:16 Dose: 100 mls/hr Propofol (Diprivan 1000 Mg/100 Ml Inj) 1,000 mg in 100 mls @ 1.752 mls/hr IV.CONT TITRATE PRN; Protocol PRN Reason: Per Protocol Last Titration: 05/03/18 03:21 Dose: 10 mcg/kg/min, 3.5 mls/hr Phenylephrine HCl 40 mg/ (Dextrose) 500 mls @ 15 mls/hr IV.CONT TITRATE PRN; Protocol PRN Reason: Per Protocol Last Titration: 05/03/18 02:25 Dose: 120 mcg/min, 90 mls/hr Fentanyl (Fentanyl 10 Mcg/Ml Premix Drip) 2,500 mcg in 250 mls @ 5 mls/hr IV.SIG TITRATE PRN; Protocol PRN Reason: Per Protocol Last Admin: 05/03/18 03:14 Dose: 50 mcg/hr, 5 mls/hr Sodium Chloride (Ns Inj) 1,000 mls @ 999 mls/hr IV.SIG .Q1H1M [facility] Stop: 05/03/18 05:15 Last Admin: 05/03/18 03:24 Dose: 999 mls/hr Ondansetron HCl (Zofran Inj) 4 mg IV.PUSH Q6H PRN PRN Reason: NAUSEA OR VOMITING Sodium Chloride (Ns Flush) 2 ml IV.FLUSH PRN PRN PRN Reason: FLUSH AFTER USING IV ACCESS Terbutaline Sulfate (Brethine Inj) 1 mg SQ UNSCH PRN PRN Reason: For Extravasation Allergies Allergy/AdvReac Type Severity Reaction Status Date / Time amoxicillin Allergy Severe Hives Verified 04/05/18 19:19 penicillin G Allergy Severe Hives Verified 04/05/18 19:19 Results - Labs CBC & Chem 7: 05/03/18 02:05 05/03/18 02:05 Labs: Short CBC 05/02/18 05/02/18 05/03/18 Range/Units 15:10 23:59 02:05 WBC 14.5 H 29.2 H D (4.0-11.0) th/mm3 Hgb 12.7 9.3 L D 8.3 L (11.6-15.3) gm/dL Hct 37.3 27.9 L 25.1 L (35.0-46.0) % Plt Count 379 D 367 (150-450) th/mm3 BMP 05/02/18 05/03/18 15:10 02:05 Sodium 127 L 134 L Potassium 2.8 L* 3.9 D Chloride 86 L 99 D Carbon Dioxide 29.9 24.5 BUN 21 H 16 Creatinine 0.68 0.68 Calcium 8.0 L 6.3 L* D Liver Function 05/02/18 05/03/18 Range/Units 15:10 02:05 Total Bilirubin 0.6 0.4 (0.2-1.0) mg/dL AST 52 H 33 (15-37) U/L ALT 16 10 (10-53) U/L Alkaline Phosphatase 203 H 107 (45-117) U/L Albumin 1.7 L 1.0 L D (3.4-5.0) g/dL Urine 05/02/18 Range/Units 16:50 Urine Color Kati (Yellw/Straw) Urine Clarity Cloudy H (Clear) Urine pH 6.0 (5.0-8.5) Ur Specific Blanco 1.011 (1.002-1.035) Urine Protein Negative (Neg-Trace) mg/dL Urine Glucose (UA) Negative (Negative) mg/dL - Imaging Impressions Abdomen/Pelvis CT 05/02/18 15:10 CONCLUSION: 1. Anterior abdominal wall hernia containing a loop of small bowel with air and apparent surrounding inflammatory change. There is an abnormal bowel gas pattern and this is of concern for acute obstruction with possible strangulation. 2. New large cystic structure in the pelvis with air-fluid levels as well as additional cystic collections with air-fluid levels with represent additional phlegmon or abscesses. 3. Acute pancreatitis again noted with enlarged head of the pancreas with multiple calcifications and indistinctness. There are new cystic structures within the pancreas. There are multiple calcifications again noted. Pancreatic duct remains dilated. 4. Cirrhotic appearing liver with surrounding ascites. 5. Tiny gallstone again noted. Chest X-Ray 05/02/18 15:10 CONCLUSION: 1. Mild elevation of the right hemidiaphragm with concomitant atelectatic changes in the right lung base. 2. Lungs are otherwise clear. Heart size is normal. Chest X-Ray 05/03/18 01:02 CONCLUSION: 1. Right basilar density. 2. Endotracheal tube 5 mm above the arti. Exam Vital signs: Vital Signs 05/02/18 15:38 05/02/18 17:44 05/02/18 21:36 Pulse Rate 100 H 104 H 107 H Respiratory Rate 17 20 Blood Pressure 111/78 132/85 Pulse Oximetry 97 05/03/18 01:00 Pulse Rate Respiratory Rate 19 Blood Pressure Pulse Oximetry 100 Intake & Output 05/02/18 05/02/18 05/03/18 06:59 18:59 06:59 Intake Total 3800 / 3800 Output Total 600 / 600 Balance 3200 / 3200 Weight 58.4 kg Intake: IV 1100 / 1100 NS Inj 1,000 ML @ 999 mls/hr IV 1000 / 1000 .SIG .Q1H1M [facility] Rx#:[id number] Flagyl 500 MG Inj 100 ML @ 100 100 / 100 mls/hr IV.SIG Q8H [facility] Rx#: [id number] Anesthesia Amount 2700 / 2700 Output: Estimated Blood Loss 300 / 300 Urine Amount (Catheter) 300 / 300 Indwelling Urethral Catheter 300 / 300 Other: Weight On Admission 54.8 kg Caprini VTE Risk Assessment Caprini VTE Risk Assessment: No/Low Risk (score <= 1) Caprini Risk Assessment Model: Point Value = 1 Point Value = 2 Point Value = 3 Point Value = 5 Age 41-60 Minor surgery BMI > 25 kg/m2 Swollen legs Varicose veins or History of unexplained or recurrent spontaneous Oral contraceptives or hormone replacement Sepsis (< 1 month) Serious lung disease, including pneumonia (< 1 month) Abnormal pulmonary function Acute myocardial infarction Congestive heart failure (< 1 month) History of inflammatory bowel disease Medical patient at bed rest Age 61-74 Arthroscopic surgery Major open surgery (> 45 min) Laparoscopic surgery (> 45 min) Malignancy Confined to bed (> 72 hours) Immobilizing plaster cast Central venous access Age >= 75 History of VTE Family history of VTE Factor V Leiden Prothrombin [id number] Lupus anticoagulant Anticardiolipin antibodies Elevated serum homocysteine Heparin-induced thrombocytopenia Other congenital or acquired thrombophilia Stroke (< 1 month) Elective arthroplasty Hip, pelvis, or leg fracture Acute spinal cord injury (< 1 month) Prophylaxis Regimen: Total Risk Factor Score Risk Level Prophylaxis Regimen 0-1 Low Early ambulation 2 Moderate Order ONE of the following: *Sequential Compression Device (SCD) *Heparin 5000 units SQ BID 3-4 Higher Order ONE of the following medications: *Heparin 5000 units SQ TID *Enoxaparin/Lovenox 40 mg SQ daily (WT < 150 kg, CrCl > 30 mL/min) *Enoxaparin/Lovenox 30 mg SQ daily (WT < 150 kg, CrCl > 10-29 mL/min) *Enoxaparin/Lovenox 30 mg SQ BID (WT < 150 kg, CrCl > 30 mL/min) AND/OR *Sequential Compression Device (SCD) 5 or more Highest Order ONE of the following medications: *Heparin 5000 units SQ TID (Preferred with Epidurals) *Enoxaparin/Lovenox 40 mg SQ daily (WT < 150 kg, CrCl > 30 mL/min) *Enoxaparin/Lovenox 30 mg SQ daily (WT < 150 kg, CrCl > 10-29 mL/min) *Enoxaparin/Lovenox 30 mg SQ BID (WT < 150 kg, CrCl > 30 mL/min) AND *Sequential Compression Device (SCD)
--- NOTE | 2018-05-03 04:19 | P.CONCC ---
History of Present Illness Primary Care Provider: UNKNOWN History of Present Illness: 42 year old female admitted for an evaluation of abdominal pain. The abdominal pain has acutely worsened today. Her pain pain has been present intermittently for about 2 weeks but it was not as severe in nature. She has been into the hospital previously and was told she has an abdominal ventral hernia. At that time there was no acute concerns or evidence of strangulation/incarceration. The CAT scan obtained in the emergency department showed large cystic structure in the pelvis with air-fluid levels as well as additional cystic collections with air-fluid levels which represent additional phlegmon or abscesses. She was taken emergently to operating room by Dr. Smith with finding of a fair amount of old blood that was in the abdomen and then down the pelvis as well as a fairly sizable abscess. She has had an abscess around the liver, which was evacuated and irrigated. A portion of the omentum was removed because it was partially necrotic. A second abscess was identified in a portion of the pouch of Casey, which was evacuated, cultured as well. The abdomen was packed down the pelvis with two pads and then placed the VAC ABThera temporary closure device as the patient is planned to be broad back to operating room after stabilization in the intensive care unit. Review of Systems unobtainable due to endotracheal tube PMFSH - History History Provided By: Patient - Medical / Surgical Hx Neg / Unobtainable Medical Problems Denied: Unable to Obtain - Medical History Medical History: Medical History (Last Updated 05/02/18 @ 21:51 by Douglas Smith MD) Traumatic brain injury (Acute) H/O Meckel's diverticulum - Surgical History Surgical History: Surgical History (Last Updated 05/02/18 @ 21:51 by Douglas Smith MD) History of exploratory laparotomy (Acute) H/O abdominal surgery (Acute) H/O brain surgery (Chronic) History of orthopedic surgery - Family History Family History: Family History (Last Updated 05/02/18 @ 21:23 by Jann Stevenson MD) Other Osteoarthritis - Tobacco History Second Hand Smoke Exposure: No Tobacco Use In Past 30 Days: Yes Smoking Status: Current every day smoker Tobacco Type: Cigarettes - Alcohol History How Often Do You Have a Drink Containing Alcohol: 2 to 4 times a month - Substance Use History Substance History: Past History - Immunization History Tetanus Immunization: Unsure Hx Influenza Vaccine This Season: No Medications and Allergies Active Medications: Active Medications Hydromorphone HCl (Dilaudid Pf Inj) 1 mg IV.PUSH Q4H PRN PRN Reason: Pain 7 to 10 Last Admin: 05/02/18 21:13 Dose: 1 mg Hydromorphone HCl (Dilaudid Pf Inj) 0.5 mg IV.PUSH Q4H PRN PRN Reason: PAIN 3 TO 6 Sodium Chloride (Ns Inj) 1,000 mls @ 100 mls/hr IV.CONT .Q10H [facility] Last Admin: 05/02/18 21:02 Dose: 100 mls/hr Levofloxacin/Dextrose (Levaquin 750 Mg Premix Inj) 150 mls @ 100 mls/hr IV.SIG Q24H [facility] Last Admin: 05/02/18 21:12 Dose: 100 mls/hr Metronidazole/Sodium Chloride (Flagyl 500 Mg Inj) 100 mls @ 100 mls/hr IV.SIG Q8H [facility] Last Admin: 05/03/18 03:16 Dose: 100 mls/hr Propofol (Diprivan 1000 Mg/100 Ml Inj) 1,000 mg in 100 mls @ 1.752 mls/hr IV.CONT TITRATE PRN; Protocol PRN Reason: Per Protocol Last Titration: 05/03/18 03:21 Dose: 10 mcg/kg/min, 3.5 mls/hr Phenylephrine HCl 40 mg/ (Dextrose) 500 mls @ 15 mls/hr IV.CONT TITRATE PRN; Protocol PRN Reason: Per Protocol Last Titration: 05/03/18 02:25 Dose: 120 mcg/min, 90 mls/hr Fentanyl (Fentanyl 10 Mcg/Ml Premix Drip) 2,500 mcg in 250 mls @ 5 mls/hr IV.SIG TITRATE PRN; Protocol PRN Reason: Per Protocol Last Admin: 05/03/18 03:14 Dose: 50 mcg/hr, 5 mls/hr Sodium Chloride (Ns Inj) 1,000 mls @ 999 mls/hr IV.SIG .Q1H1M [facility] Stop: 05/03/18 05:15 Last Admin: 05/03/18 03:24 Dose: 999 mls/hr Ondansetron HCl (Zofran Inj) 4 mg IV.PUSH Q6H PRN PRN Reason: NAUSEA OR VOMITING Sodium Chloride (Ns Flush) 2 ml IV.FLUSH PRN PRN PRN Reason: FLUSH AFTER USING IV ACCESS Terbutaline Sulfate (Brethine Inj) 1 mg SQ UNSCH PRN PRN Reason: For Extravasation Allergies Allergy/AdvReac Type Severity Reaction Status Date / Time amoxicillin Allergy Severe Hives Verified 04/05/18 19:19 penicillin G Allergy Severe Hives Verified 04/05/18 19:19 Physical Exam Vital signs: Vital Signs 05/02/18 15:38 05/02/18 17:44 05/02/18 21:36 Pulse Rate 100 H 104 H 107 H Respiratory Rate 17 20 Blood Pressure 111/78 132/85 Pulse Oximetry 97 05/03/18 01:00 Pulse Rate Respiratory Rate 19 Blood Pressure Pulse Oximetry 100 Intake & Output 05/02/18 05/02/18 05/03/18 06:59 18:59 06:59 Intake Total 3800 / 3800 Output Total 600 / 600 Balance 3200 / 3200 Weight 58.4 kg Intake: IV 1100 / 1100 NS Inj 1,000 ML @ 999 mls/hr IV 1000 / 1000 .SIG .Q1H1M [facility] Rx#:[id number] Flagyl 500 MG Inj 100 ML @ 100 100 / 100 mls/hr IV.SIG Q8H [facility] Rx#: [id number] Anesthesia Amount 2700 / 2700 Output: Estimated Blood Loss 300 / 300 Urine Amount (Catheter) 300 / 300 Indwelling Urethral Catheter 300 / 300 Other: Weight On Admission 54.8 kg - Constitutional moderate distress - Routine HEENT Exam Head: Present: normocephalic, atraumatic Eye: Present: PERRL ENT: Present: mucous membranes moist - Routine Neck Exam Absent: JVD, carotid bruit - Routine Respiratory Exam Present: patient mechanically ventilated. Absent: rhonchi, stridor, wheezes - Routine Cardiovascular Exam Present: RRR, S1, S2. Absent: murmur, gallop, rubs - Routine Abdominal Exam Present: soft. Absent: distended, organomegaly - Routine Extremities Exam Absent: cyanosis, clubbing, edema - Routine Skin Exam Present: intact. Absent: cyanosis, erythema - Routine Neurological Exam Present: moving all extremities - Detailed Neurological Exam: Coma Scale Eye Opening: Spontaneous Verbal Response: None Motor Response: Obey commands Alejandro Coma Scale Total: 11 - Urinary Catheter Management Indwelling Urethral Catheter Cath placed during this visit: no Assessment and Plan - Assessment and Plan Plan: Respiratory failure -Post operative and general anesthesia -Patient's plans to return to operating room in a day or 2 -Continue mechanical ventilation -SBT daily when hemodynamically stable -Vent bundle -DuoNeb's as needed Ventral hernia Abdominal abscesses -Status post exploratory laparotomy and washout -Follow-up cultures -Empiric antibiotics and antifungal -ID consultation -Further management per general surgery Hypotension -Sepsis -Aggressive IV fluid hydration -Dontrell-Synephrine as needed to keep map above 65 DVT GI prophylaxis -Teds SCDs -Pharmacological DVT prophylaxis per surgeon -Pepcid Critical Care: The total critical care time was 35 minutes. Time to perform other separately billable procedures was not included in the critical care time
[2018-05-03] MEDS: Sod Chloride 0.9% Inj 1,000 ML IV.CONT SCH ×2 (05:27→17:18)
[2018-05-03] MEDS: Potassium Chlor 20 mEq Premix 20 MEQ/100 ML PIGGYBACK IV.SIG SCH (07:15)
[2018-05-03] MEDS: Chlorhexidine 0.12% Oral Kit 15 ML UDC OROPHARYNG SCH ×2 (08:34→21:05)
[2018-05-03] MEDS: Famotidine PF Inj 20 MG/2 ML Vial IV.PUSH SCH ×2 (08:42→21:05)
[2018-05-03] MEDS ORDERED: Famotidine PF Inj 20 MG/2 ML Vial IV.PUSH SCH (09:00)
--- NOTE | 2018-05-03 09:58 | P.CONID ---
History of Present Illness Service: Infectious Disease Consult date: 05/03/18 Requesting Physician: Nima Kingston Reason for Consult: Evaluate patient with intra-abdominal abscess Primary Care Provider: UNKNOWN History of Present Illness: Patient seen and examined. Records reviewed. 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 Patient's last hospitalization was in March and at that time she presented with abdominal pain, and had pancreatitis. Her imaging studies did not show pancreatitis, pseudocyst, and an abdominal wall hernia. She she was discharged she has had on and off abdominal pain but he was not that bad, but on the day of admission she had an acute onset of severe abdominal pain. There is no mention of any fever chills or sweats. No nausea or vomiting. Imaging studies on this admission is showing incarcerated hernia and presence of intra-abdominal abscess. Surgery saw the patient, and she was taken to surgery and had exploratory laparotomy, drainage of multiple abscesses , perihepatic, and multiple intra-abdominal and pelvic abscesses. Her abdomen is currently open, and she has a wound VAC over her open abdominal incision. Patient currently is on sedation, on the respirator. She is on Dontrell-Synephrine. She is afebrile. Her white count on admission was 14,000, and it is 29,000 today. She is currently on Diflucan, Flagyl, and Levaquin. Infectious disease consultation has been requested to assist in evaluation and treatment of patient with intra-abdominal abscess. Review of Systems unobtainable due to endotracheal tube PMFSH - History History Provided By: Patient - Medical / Surgical Hx Neg / Unobtainable Medical Problems Denied: Unable to Obtain - Medical History Medical History: Medical History (Last Reviewed 05/03/18 @ 09:43 by Estefania Aguilar MD) Traumatic brain injury (Acute) H/O Meckel's diverticulum - Surgical History Surgical History: Surgical History (Last Reviewed 05/03/18 @ 09:43 by Estefania Aguilar MD) History of exploratory laparotomy (Acute) H/O abdominal surgery (Acute) H/O brain surgery (Chronic) History of orthopedic surgery - Family History Family History: Family History (Last Updated 05/02/18 @ 21:23 by Jann Stevenson MD) Other Osteoarthritis - Tobacco History Second Hand Smoke Exposure: No Tobacco Use In Past 30 Days: Yes Smoking Status: Current every day smoker Tobacco Type: Cigarettes - Alcohol History How Often Do You Have a Drink Containing Alcohol: 2 to 4 times a month - Substance Use History Substance History: Past History - Immunization History Tetanus Immunization: Unsure Hx Influenza Vaccine This Season: No Medications and Allergies Active Medications: Active Medications Albuterol (Duoneb Neb (Prn)) 1 ampul NEB Q2HR NEB PRN PRN Reason: SHORTNESS OF BREATH Chlorhexidine Gluconate (Peridex 0.12% Oral Kit) 15 ml OROPHARYNG BID@0800, 2000 [facility] Last Admin: 05/03/18 08:34 Dose: 15 ml Famotidine (Pepcid Pf Inj) 20 mg IV.PUSH Q12HR [facility] Last Admin: 05/03/18 08:42 Dose: 20 mg Hydromorphone HCl (Dilaudid Pf Inj) 1 mg IV.PUSH Q4H PRN PRN Reason: Pain 7 to 10 Last Admin: 05/02/18 21:13 Dose: 1 mg Hydromorphone HCl (Dilaudid Pf Inj) 0.5 mg IV.PUSH Q4H PRN PRN Reason: PAIN 3 TO 6 Sodium Chloride (Ns Inj) 1,000 mls @ 100 mls/hr IV.CONT .Q10H [facility] Last Admin: 05/03/18 05:27 Dose: 100 mls/hr Levofloxacin/Dextrose (Levaquin 750 Mg Premix Inj) 150 mls @ 100 mls/hr IV.SIG Q24H [facility] Last Infusion: 05/02/18 22:42 Dose: Infused Metronidazole/Sodium Chloride (Flagyl 500 Mg Inj) 100 mls @ 100 mls/hr IV.SIG Q8H [facility] Last Infusion: 05/03/18 04:16 Dose: Infused Propofol (Diprivan 1000 Mg/100 Ml Inj) 1,000 mg in 100 mls @ 1.752 mls/hr IV.CONT TITRATE PRN; Protocol PRN Reason: Per Protocol Last Titration: 05/03/18 06:49 Dose: 30 mcg/kg/min, 10.51 mls/hr Phenylephrine HCl 40 mg/ (Dextrose) 500 mls @ 15 mls/hr IV.CONT TITRATE PRN; Protocol PRN Reason: Per Protocol Last Admin: 05/03/18 08:34 Dose: 140 mcg/min, 105 mls/hr Fentanyl (Fentanyl 10 Mcg/Ml Premix Drip) 2,500 mcg in 250 mls @ 5 mls/hr IV.SIG TITRATE PRN; Protocol PRN Reason: Per Protocol Last Admin: 05/03/18 03:14 Dose: 50 mcg/hr, 5 mls/hr Fluconazole (Diflucan 400 Mg Premix Bag) 200 mls @ 100 mls/hr IV.SIG Q24H [facility] Last Admin: 05/03/18 06:51 Dose: 100 mls/hr Ondansetron HCl (Zofran Inj) 4 mg IV.PUSH Q6H PRN PRN Reason: NAUSEA OR VOMITING Sodium Chloride (Ns Flush) 2 ml IV.FLUSH PRN PRN PRN Reason: FLUSH AFTER USING IV ACCESS Terbutaline Sulfate (Brethine Inj) 1 mg SQ UNSCH PRN PRN Reason: For Extravasation Allergies Allergy/AdvReac Type Severity Reaction Status Date / Time amoxicillin Allergy Severe Hives Verified 04/05/18 19:19 penicillin G Allergy Severe Hives Verified 04/05/18 19:19 Exam Vital signs: Vital Signs 05/02/18 15:38 05/02/18 17:44 05/02/18 21:36 Temperature Pulse Rate 100 H 104 H 107 H Respiratory Rate 17 20 Blood Pressure 111/78 132/85 Pulse Oximetry 97 05/03/18 01:00 05/03/18 04:00 05/03/18 04:18 Temperature 98.1 F Pulse Rate 94 H Respiratory Rate 19 16 Blood Pressure 106/73 Pulse Oximetry 100 100 100 05/03/18 08:00 05/03/18 08:09 05/03/18 08:25 Temperature 97.8 F Pulse Rate 68 72 Respiratory Rate 16 16 18 Blood Pressure 123/88 Pulse Oximetry 100 100 Intake & Output 05/02/18 05/03/18 05/03/18 18:59 06:59 18:59 Intake Total 7850 / 7850 2600 / 2600 Output Total 1325 / 1325 Balance 6525 / 6525 2600 / 2600 Weight 58.4 kg Intake: IV 2450 / 2450 2600 / 2600 Neosynephrine Inj 40 MG In D5W 500 / 500 500 / 500 Inj 496 ML @ 20 MCG/MIN 15 mls/ hr IV.CONT TITRATE PRN Rx#: [id number] NS Inj 1,000 ML @ 100 mls/hr IV 500 / 500 .CONT .Q10H [facility]MA Rx#:[id number] Levaquin 750 mg Premix Inj 150 150 / 150 ML @ 100 mls/hr IV.SIG Q24H [facility] Rx#:[id number] KCl 20 mEq Premix Inj 20 meq In 100 / 100 100 ml @ 50 mls/hr IV.SIG Q2H [facility] Rx#:[id number] NS Inj 1,000 ML @ 999 mls/hr IV 1000 / 1000 1000 / 1000 .SIG .Q1H1M [facility]MA Rx#:[id number] Flagyl 500 MG Inj 100 ML @ 100 200 / 200 mls/hr IV.SIG Q8H ALMA Rx#: [id number] Anesthesia Amount 5400 / 5400 Output: Estimated Blood Loss 600 / 600 Urine Amount (Catheter) 500 / 500 Indwelling Urethral Catheter 500 / 500 Wound Vac Amount 225 / 225 Abdomen 225 / 225 Other: Mode Setting Abdomen Continuous Weight On Admission 54.8 kg Narrative: Physical Examination GENERAL: Patient is a well-nourished, well-developed female, on sedation, on the vent, awakens when stimulated. She is not in respiratory distress. SKIN: Cool and dry. No generalized rash, no ecchymoses and no evidence of embolic lesions. HEAD: Atraumatic. Normocephalic. No temporal wasting, or tenderness. EYES: Hankinson conjunctiva. No petechia or hemorrhage. Pupils equal, round and reactive to light. No scleral icterus. No injection or drainage. EARS, NOSE AND THROAT: Nose without bleeding or purulent nasal discharge, has NGT in place. She is orally intubated.. NECK: Trachea midline. Supple and not tender, no meningeal signs CARDIOVASCULAR: Regular rate and rhythm. No murmurs, rubs or gallops heard RESPIRATORY: Coarse breath sounds bilaterally. Breath sounds equal bilaterally. No rales, wheezing or rhonchi ABDOMEN: Mildly distended, has an open abdominal incision with a wound VAC in place. There is some erythema on the lower portion of the abdominal incision. Bowel sounds are hypoactive. EXTREMITIES: No clubbing, cyanosis, or edema. No joint effusion. Well perfused and warm. NEUROLOGICAL: Sedated PSYCHIATRIC: Unable to assess LINE: No evidence of infection Results - Labs CBC & Chem 7: 05/03/18 02:05 05/03/18 02:05 Labs: Laboratory Results - last 24 hr 05/02/18 05/02/18 05/02/18 15:10 15:10 15:10 WBC 14.5 H RBC 4.18 Hgb 12.7 Hct 37.3 MCV 89.4 MCH 30.5 MCHC 34.2 RDW 14.1 Plt Count 379 D MPV 9.0 Prelim Diff (Auto) Slide review pending Neut % (Auto) 82.4 H Lymph % (Auto) 5.7 L Ocean % (Auto) 10.0 H Eos % (Auto) 0.5 Baso % (Auto) 1.4 Neut # (Auto) 12.0 H Lymph # (Auto) 0.8 L Ocean # (Auto) 1.5 H Eos # (Auto) 0.1 Baso # (Auto) 0.2 WBC Differential Manual diff final Seg Neuts % (Manual) 81 H Band Neuts % (Manual) 8 H Lymphocytes % (Manual) 2 L Monocytes % (Manual) 8 Metamyelocytes % (Man) 1 Abs Neuts (Manual) 13.1 H Differential Comment . Toxic Granulation 1+ H Platelet Estimate Normal Platelet Morphology Clumped H PT 11.8 H INR 1.2 APTT 27.1 Puncture Site Patient Temperature O2 Saturation ABG pH ABG pCO2 ABG pO2 ABG HCO3 ABG O2 Content ABG Base Excess ABG Methemoglobin Isidoro Test Hemoglobin Carboxyhemoglobin O2 Delivery Device Vent Setting Inspired O2 Critical Value Sodium 127 L Potassium 2.8 L* Chloride 86 L Carbon Dioxide 29.9 Anion Gap 11 BUN 21 H Creatinine 0.68 Estimated GFR Greater than 89 Random Glucose 129 H Lactic Acid Calcium 8.0 L Prot Corrected Calcium Total Bilirubin 0.6 AST 52 H ALT 16 Alkaline Phosphatase 203 H Ammonia Total Protein 6.8 Albumin 1.7 L Lipase 7244 H Urine Color Urine Clarity Urine pH Ur Specific [place] Urine Protein Urine Glucose (UA) Urine Ketones Urine Occult Blood Urine Nitrate Urine Bilirubin Urine Urobilinogen Ur Leukocyte Esterase Urine RBC Urine WBC Ur Squamous Epith Cells Urine Bacteria Micro UA Comment Urine Culture Comments Nasal Screen MRSA (PCR) Blood Type Antibody Screen MTS Gel Crossmatch 05/02/18 05/02/18 05/02/18 16:50 17:15 17:15 WBC RBC Hgb Hct MCV MCH MCHC RDW Plt Count MPV Prelim Diff (Auto) Neut % (Auto) Lymph % (Auto) Ocean % (Auto) Eos % (Auto) Baso % (Auto) Neut # (Auto) Lymph # (Auto) Ocean # (Auto) Eos # (Auto) Baso # (Auto) WBC Differential Seg Neuts % (Manual) Band Neuts % (Manual) Lymphocytes % (Manual) Monocytes % (Manual) Metamyelocytes % (Man) Abs Neuts (Manual) Differential Comment Toxic Granulation Platelet Estimate Platelet Morphology PT INR APTT Puncture Site Patient Temperature O2 Saturation ABG pH ABG pCO2 ABG pO2 ABG HCO3 ABG O2 Content ABG Base Excess ABG Methemoglobin Isidoro Test Hemoglobin Carboxyhemoglobin O2 Delivery Device Vent Setting Inspired O2 Critical Value Sodium Potassium Chloride Carbon Dioxide Anion Gap BUN Creatinine Estimated GFR Random Glucose Lactic Acid 1.5 Calcium Prot Corrected Calcium Total Bilirubin AST ALT Alkaline Phosphatase Ammonia 30 Total Protein Albumin Lipase Urine Color Kati Urine Clarity Cloudy H Urine pH 6.0 Ur Specific [place] 1.011 Urine Protein Negative Urine Glucose (UA) Negative Urine Ketones Negative Urine Occult Blood Large H Urine Nitrate Negative Urine Bilirubin Negative Urine Urobilinogen 4 or greater Ur Leukocyte Esterase Negative Urine RBC 3 Urine WBC 12 H Ur Squamous Epith Cells 13 Urine Bacteria Rare H Micro UA Comment Culture indicated Urine Culture Comments Culture indicated Nasal Screen MRSA (PCR) Blood Type Antibody Screen MTS Gel Crossmatch 05/02/18 05/02/18 05/03/18 23:59 23:59 01:20 WBC RBC Hgb 9.3 L D Hct 27.9 L MCV MCH MCHC RDW Plt Count MPV Prelim Diff (Auto) Neut % (Auto) Lymph % (Auto) Ocean % (Auto) Eos % (Auto) Baso % (Auto) Neut # (Auto) Lymph # (Auto) Ocean # (Auto) Eos # (Auto) Baso # (Auto) WBC Differential Seg Neuts % (Manual) Band Neuts % (Manual) Lymphocytes % (Manual) Monocytes % (Manual) Metamyelocytes % (Man) Abs Neuts (Manual) Differential Comment Toxic Granulation Platelet Estimate Platelet Morphology PT INR APTT Puncture Site Patient Temperature O2 Saturation ABG pH ABG pCO2 ABG pO2 ABG HCO3 ABG O2 Content ABG Base Excess ABG Methemoglobin Isidoro Test Hemoglobin Carboxyhemoglobin O2 Delivery Device Vent Setting Inspired O2 Critical Value Sodium Potassium Chloride Carbon Dioxide Anion Gap BUN Creatinine Estimated GFR Random Glucose Lactic Acid Calcium Prot Corrected Calcium Total Bilirubin AST ALT Alkaline Phosphatase Ammonia Total Protein Albumin Lipase Urine Color Urine Clarity Urine pH Ur Specific [place] Urine Protein Urine Glucose (UA) Urine Ketones Urine Occult Blood Urine Nitrate Urine Bilirubin Urine Urobilinogen Ur Leukocyte Esterase Urine RBC Urine WBC Ur Squamous Epith Cells Urine Bacteria Micro UA Comment Urine Culture Comments Nasal Screen MRSA (PCR) Not detected Blood Type B Positive Antibody Screen Negative MTS Gel Crossmatch See Detail 05/03/18 05/03/18 05/03/18 01:55 02:05 02:05 WBC 29.2 H D RBC 2.74 L Hgb 8.3 L Hct 25.1 L MCV 91.7 MCH 30.3 MCHC 33.1 RDW 13.8 Plt Count 367 MPV 8.6 Prelim Diff (Auto) Neut % (Auto) 92.4 H Lymph % (Auto) 3.0 L Ocean % (Auto) 3.6 Eos % (Auto) 0.8 Baso % (Auto) 0.2 Neut # (Auto) 27.0 H Lymph # (Auto) 0.9 L [place] # (Auto) 1.0 H Eos # (Auto) 0.2 Baso # (Auto) 0.1 WBC Differential . Seg Neuts % (Manual) Band Neuts % (Manual) Lymphocytes % (Manual) Monocytes % (Manual) Metamyelocytes % (Man) Abs Neuts (Manual) Differential Comment Auto diff final Toxic Granulation Platelet Estimate Platelet Morphology PT INR APTT Puncture Site Right radial Patient Temperature 98.6 O2 Saturation 97 ABG pH 7.38 ABG pCO2 36 L ABG pO2 143 H ABG HCO3 21 L ABG O2 Content 11.8 L ABG Base Excess -3.4 L ABG Methemoglobin 1.2 Isidoro Test Present Hemoglobin 8.4 L Carboxyhemoglobin 1.2 O2 Delivery Device Ventilator Vent Setting Prvc/ac Inspired O2 50 Critical Value No Sodium 134 L Potassium 3.9 D Chloride 99 D Carbon Dioxide 24.5 Anion Gap 11 BUN 16 Creatinine 0.68 Estimated GFR Greater than 89 Random Glucose 157 H Lactic Acid Calcium 6.3 L* D Prot Corrected Calcium 7.8 L Total Bilirubin 0.4 AST 33 ALT 10 Alkaline Phosphatase 107 Ammonia Total Protein 4.2 L D Albumin 1.0 L D Lipase 4768 H Urine Color Urine Clarity Urine pH Ur Specific [place] Urine Protein Urine Glucose (UA) Urine Ketones Urine Occult Blood Urine Nitrate Urine Bilirubin Urine Urobilinogen Ur Leukocyte Esterase Urine RBC Urine WBC Ur Squamous Epith Cells Urine Bacteria Micro UA Comment Urine Culture Comments Nasal Screen MRSA (PCR) Blood Type Antibody Screen MTS Gel Crossmatch - Imaging Impressions Abdomen/Pelvis CT 05/02/18 15:10 CONCLUSION: 1. Anterior abdominal wall hernia containing a loop of small bowel with air and apparent surrounding inflammatory change. There is an abnormal bowel gas pattern and this is of concern for acute obstruction with possible strangulation. 2. New large cystic structure in the pelvis with air-fluid levels as well as additional cystic collections with air-fluid levels with represent additional phlegmon or abscesses. 3. Acute pancreatitis again noted with enlarged head of the pancreas with multiple calcifications and indistinctness. There are new cystic structures within the pancreas. There are multiple calcifications again noted. Pancreatic duct remains dilated. 4. Cirrhotic appearing liver with surrounding ascites. 5. Tiny gallstone again noted. Chest X-Ray 05/02/18 15:10 CONCLUSION: 1. Mild elevation of the right hemidiaphragm with concomitant atelectatic changes in the right lung base. 2. Lungs are otherwise clear. Heart size is normal. Chest X-Ray 05/03/18 01:02 CONCLUSION: 1. Right basilar density. 2. Endotracheal tube 5 mm above the arti. Assessment and Plan - Plan Impression Sepsis with shock due to intraabdominal process Multiple intraabdominal and pelvic abscess, S/P lap and drainage of abscess, has open abdomen currently Respiratory failure Leukocytosis due to above Recommendation Add IV Vanco Change Levaquin to Cefepime Continue Flagyl Continue Diflucan Follow C/S and adjust Abx Monitor progress closely I will follow along with you Thank you for this consultation
[2018-05-03] MEDS ORDERED: Vancomycin Consult Pharmacy 1 EACH OTHER SCH (10:00)
[2018-05-03] MEDS: Oral Hygiene Kit OROPHARYNG SCH ×2 (11:05→16:28)
[2018-05-03] MEDS: Vancomycin Inj 1,500 MG in Sodium Chlor 0.9% Inj 500 ML IV.SIG SCH (13:02)
--- NOTE | 2018-05-03 15:59 | P.PNGS ---
Subjective Interval history: Intubated; awake Physical Exam Vital signs: Vital Signs 05/02/18 17:44 05/02/18 21:36 05/03/18 01:00 Temperature Pulse Rate 104 H 107 H Respiratory Rate 17 20 19 Blood Pressure 111/78 132/85 Pulse Oximetry 97 100 05/03/18 04:00 05/03/18 04:18 05/03/18 08:00 Temperature 98.1 F 97.8 F Pulse Rate 94 H 68 Respiratory Rate 16 16 Blood Pressure 106/73 123/88 Pulse Oximetry 100 100 100 05/03/18 08:09 05/03/18 08:25 05/03/18 09:00 Temperature Pulse Rate 72 74 Respiratory Rate 16 18 Blood Pressure Pulse Oximetry 100 05/03/18 10:17 05/03/18 12:00 Temperature 97.9 F Pulse Rate 71 Respiratory Rate 16 16 Blood Pressure 108/74 Pulse Oximetry 100 100 Intake & Output 05/02/18 05/03/18 05/03/18 18:59 06:59 18:59 Intake Total 7850 / 7850 4115 / 4115 Output Total 1325 / 1325 Balance 6525 / 6525 4115 / 4115 Weight 58.4 kg Intake: IV 2450 / 2450 4115 / 4115 Neosynephrine Inj 40 MG In D5W 500 / 500 1000 / 1000 Inj 496 ML @ 20 MCG/MIN 15 mls/ hr IV.CONT TITRATE PRN Rx#: [id number] Diprivan 1000 mg/100 ml Inj 1, 100 / 100 000 mg In 100 ml @ 5 MCG/KG/MIN 1.752 mls/hr IV.CONT TITRATE PRN Rx#:[id number] NS Inj 1,000 ML @ 100 mls/hr IV 500 / 500 .CONT .Q10H [facility] Rx#:[id number] Maxipime Inj 2,000 MG In NS Inj 100 / 100 100 ML @ 200 mls/hr IV.SIG Q8H [facility] Rx#:[id number] Diflucan 400 mg Premix Bag 200 200 / 200 ML @ 100 mls/hr IV.SIG Q24H [facility] Rx#:[id number] Levaquin 750 mg Premix Inj 150 150 / 150 ML @ 100 mls/hr IV.SIG Q24H [facility] Rx#:[id number] KCl 20 mEq Premix Inj 20 meq In 100 / 100 100 ml @ 50 mls/hr IV.SIG Q2H [facility] Rx#:[id number] NS Inj 1,000 ML @ 999 mls/hr IV 1000 / 1000 1000 / 1000 .SIG .Q1H1M [facility] Rx#:[id number] Vancomycin Inj 1,500 MG In NS 515 / 515 Inj 500 ML @ 250 mls/hr IV.SIG Q12H [facility] Rx#:[id number] Flagyl 500 MG Inj 100 ML @ 100 200 / 200 100 / 100 mls/hr IV.SIG Q8H [facility] Rx#: [id number] Anesthesia Amount 5400 / 5400 Output: Estimated Blood Loss 600 / 600 Urine Amount (Catheter) 500 / 500 Indwelling Urethral Catheter 500 / 500 Wound Vac Amount 225 / 225 Abdomen 225 / 225 Other: Mode Setting Abdomen Continuous Intermittent Weight On Admission 54.8 kg Narrative: Alert and awake Cardio: RRR Resp: CTAB Abd: Wound vac in place with good seal; painful - Urinary Catheter Management Indwelling Urethral Catheter Cath placed during this visit: no Reason for continuing: Hourly intake/output Assessment and Plan - Assessment (1) Intra-abdominal abscess Code(s): K65.1 - Peritoneal abscess Status: Acute Plan: 42 year old female POD1 exploratory laparotomy; partial omentectomy; drainage of pelvic abscess; drainage of intra-abdominal abscess; drainage of perihepatic abscess; application of wound VAC device; lysis of adhesions -Plan to return to the operating room tomorrow with gynecology Dr. Escalera for intraoperative evaluation -Continue to wean vasopressors as tolerated -N.p.o. -Obtain consents -Discussed at bedside with Dr. 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 and gangrene Code(s): K43.1 - Incisional hernia with gangrene Status: Acute (4) Acute pancreatitis Code(s): K85.90 - Acute pancreatitis without necrosis or infection, unspecified Status: Chronic (5) Acute on chronic pancreatitis Code(s): K85.90 - Acute pancreatitis without necrosis or infection, unspecified ; K86.1 - Other chronic pancreatitis Status: Chronic (6) Abdominal pain Code(s): R10.9 - Unspecified abdominal pain Status: Chronic (7) H/O brain surgery Code(s): Z98.890 - Other specified postprocedural states Status: Chronic (4) Acute pancreatitis Qualifiers: Pancreatitis type: alcohol induced (6) Abdominal pain Qualifiers: Abdominal location: generalized Qualified Code(s): R10.84 - Generalized abdominal pain
[2018-05-04] MEDS: Phenylephrine Inj 40 MG in Dextrose 5% in Water Inj 496 ML IV.CONT PRN ×4 (00:20→23:34)
[2018-05-04] MEDS: Oral Hygiene Kit OROPHARYNG SCH ×4 (01:50→17:35)
[2018-05-04] MEDS: Vancomycin Inj 1,500 MG in Sodium Chlor 0.9% Inj 500 ML IV.SIG SCH ×2 (01:50→13:55)
[2018-05-04] MEDS: Sod Chloride 0.9% Inj 1,000 ML IV.CONT SCH ×2 (04:09→22:26)
[2018-05-04] MEDS: fentaNYL 10 mcg/mL Premix Drip 2,500 MCG/250 ML BAG IV.SIG PRN ×2 (04:13→14:14)
[2018-05-04 06:15] LABS: ABG Base Excess -4.9 mmol/L (-2-2); ABG PCO2 30 mmHg (38-42); ABG PO2 168 mmHg (61-120)
[2018-05-04 07:40] LABS: Baso % (Auto) 0.1 % (0.0-2.0); Eos % (Auto) 0.1 % (0.0-4.0); Lymph # (Auto) 1.2 th/mm3 (1.0-4.8); Lymph % (Auto) 4.5 % (9.0-44.0); Mean Corpuscular HGB Conc 31.8 % (32.0-36.0); Mean Corpuscular Hemoglobin 29.4 pg (27.0-34.0); Mean Corpuscular Volume 92.4 fL (80.0-100.0); Mean Platelet Volume 9.1 fL (7.0-11.0); Mono # (Auto) 1.7 th/mm3 (0.0-0.9); Mono % (Auto) 6.2 % (0.0-8.0); Neut # (Auto) 24.9 th/mm3 (1.8-7.7); Neut % (Auto) 89.1 % (16.0-70.0); Platelet Count 363 th/mm3 (150-450); Red Cell Distribution Width 13.9 % (11.6-17.2)
[2018-05-04 07:49] LABS: Hematocrit 19.4 % (35.0-46.0); Hemoglobin 6.2 gm/dL (11.6-15.3)
[2018-05-04 07:50] LABS: INR 1.2 Ratio; Prothrombin Time 12.2 sec (9.8-11.6)
[2018-05-04 07:58] LABS: Anion Gap 12 meq/L (5-15); Blood Urea Nitrogen 16 mg/dL (7-18); Calcium 6.9 mg/dL (8.5-10.1); Carbon Dioxide 19.4 meq/L (21.0-32.0); Chloride 108 meq/L (98-107); Glomerular Filtration Rate Greater Than 89 mL/min (>89); Glucose,Random 133 mg/dL (74-106); Potassium 3.3 meq/L (3.5-5.1); Sodium 139 meq/L (136-145)
[2018-05-04 08:11] LABS: Total Protein 4.4 g/dL (6.4-8.2)
[2018-05-04 08:18] LABS: Lymphocytes 1 % (9-44); Metamyelocytes 1 % (0-1); Monocytes 1 % (0-8); Myelocytes 1 % (0-0)
[2018-05-04 08:19] LABS: Platelet Estimate Normal (Normal); Platelet Morphology Normal (Normal); Toxic Granulation 1+
[2018-05-04] MEDS: Chlorhexidine 0.12% Oral Kit 15 ML UDC OROPHARYNG SCH ×2 (08:33→20:24)
[2018-05-04] MEDS: Famotidine PF Inj 20 MG/2 ML Vial IV.PUSH SCH ×2 (08:45→20:28)
--- NOTE | 2018-05-04 08:51 | P.PNCC ---
Subjective Subjective Remarks/Hospital Course: 42 year old female admitted for an evaluation of abdominal pain. The abdominal pain has acutely worsened today. Her pain pain has been present intermittently for about 2 weeks but it was not as severe in nature. She has been into the hospital previously and was told she has an abdominal ventral hernia. At that time there was no acute concerns or evidence of strangulation/incarceration. The CAT scan obtained in the emergency department showed large cystic structure in the pelvis with air-fluid levels as well as additional cystic collections with air-fluid levels which represent additional phlegmon or abscesses. She was taken emergently to operating room by Dr. Smith with finding of a fair amount of old blood that was in the abdomen and then down the pelvis as well as a fairly sizable abscess. She has had an abscess around the liver, which was evacuated and irrigated. A portion of the omentum was removed because it was partially necrotic. A second abscess was identified in a portion of the pouch of Casey, which was evacuated, cultured as well. The abdomen was packed down the pelvis with two pads and then placed the VAC ABThera temporary closure device as the patient is planned to be broad back to operating room after stabilization in the intensive care unit. SUBJ 05/04: Remains intubated sedated remains critical. Currently on Dontrell- Synephrine to maintain map above 65. Hemoglobin came back at 6.2 ordered to receive 2 units of PRBC. White count is 28,000. Plan for OR 4 PM today Objective Vital Signs / I&O: Vital Signs 05/03/18 09:00 05/03/18 10:17 05/03/18 12:00 Temperature 97.9 F Pulse Rate 74 71 Respiratory Rate 16 16 Blood Pressure 108/74 Pulse Oximetry 100 100 05/03/18 16:00 05/03/18 16:03 05/03/18 20:00 Temperature 97.9 F 98.2 F Pulse Rate 54 L 58 L Respiratory Rate 16 16 21 Blood Pressure 112/78 109/60 Pulse Oximetry 100 100 100 05/03/18 20:47 05/04/18 00:00 05/04/18 02:12 Temperature 97.5 F L Pulse Rate 60 Respiratory Rate 16 16 16 Blood Pressure 123/69 Pulse Oximetry 100 100 100 05/04/18 04:00 05/04/18 04:09 05/04/18 08:00 Temperature 98.3 F 98.0 F Pulse Rate 46 L 44 L Respiratory Rate 23 16 16 Blood Pressure 116/72 100/63 Pulse Oximetry 100 100 98 05/04/18 08:19 05/04/18 08:32 Temperature 98.0 F 97.4 F L Pulse Rate 44 L 55 L Respiratory Rate 21 16 Blood Pressure 96/61 L 122/61 Pulse Oximetry 100 100 Intake & Output 05/03/18 05/04/18 05/04/18 18:59 06:59 18:59 Intake Total 5365 / 5365 2665 / 2665 300 / 300 Output Total 1100 / 1100 875 / 875 Balance 4265 / 4265 1790 / 1790 300 / 300 Weight 60.1 kg Intake: IV 5365 / 5365 2665 / 2665 300 / 300 Neosynephrine Inj 40 MG In D5W 1000 / 1000 500 / 500 Inj 496 ML @ 20 MCG/MIN 15 mls/ hr IV.CONT TITRATE PRN Rx#: [id number] Diprivan 1000 mg/100 ml Inj 1, 100 / 100 100 / 100 000 mg In 100 ml @ 5 MCG/KG/MIN 1.752 mls/hr IV.CONT TITRATE PRN Rx#:[id number] NS Inj 1,000 ML @ 100 mls/hr IV 1000 / 1000 1000 / 1000 .CONT .Q10H [facility] Rx#:[id number] Maxipime Inj 2,000 MG In NS Inj 100 / 100 200 / 200 100 ML @ 200 mls/hr IV.SIG Q8H [facility] Rx#:[id number] Diflucan 400 mg Premix Bag 200 200 / 200 200 / 200 ML @ 100 mls/hr IV.SIG Q24H [facility] Rx#:[id number] NS Inj 1,000 ML @ 999 mls/hr IV 1000 / 1000 .SIG .Q1H1M [facility] Rx#:[id number] Vancomycin Inj 1,500 MG In NS 515 / 515 515 / 515 Inj 500 ML @ 250 mls/hr IV.SIG Q12H [facility] Rx#:[id number] fentaNYL 10 mcg/mL Premix Drip 250 / 250 250 / 250 2,500 mcg In 250 ml @ 50 MCG/HR 5 mls/hr IV.SIG TITRATE PRN Rx #:[id number] Flagyl 500 MG Inj 100 ML @ 100 100 / 100 100 / 100 100 / 100 mls/hr IV.SIG Q8H [facility] Rx#: [id number] Intake (Blood Product) Amt 0 / 0 Rbc As-3 Leukoreduced Unit 0 / 0 [id number] Output: Urine Amount (Catheter) 550 / 550 650 / 650 Indwelling Urethral Catheter 550 / 550 650 / 650 Wound Vac Amount 550 / 550 225 / 225 Abdomen 550 / 550 225 / 225 Other: Mode Setting Abdomen Continuous Continuous # Bowel Movements 0 Result Diagrams: 05/04/18 07:10 05/04/18 07:10 Objective Remarks: GENERAL: Patient is a well-nourished, well-developed female, sedated on vent but wakes up easily. Moderate distress from pain SKIN: No generalized rash, no ecchymoses HEAD: Atraumatic. Normocephalic. EYES: Pupils equal, round and reactive to light. No scleral icterus. No injection or drainage. ENT: NGT in place. Orotracheally intubated NECK: Trachea midline. Supple CARDIOVASCULAR: Regular rate and rhythm. No murmurs, rubs or gallops heard. On 40 mics of Dontrell-Synephrine to maintain map >65 RESPIRATORY: Coarse breath sounds bilaterally. Breath sounds equal bilaterally. No rales, wheezing or rhonchi ABDOMEN: Open abdomen with wound VAC in place. 770 mL serosanguineous output from wound VAC in the last 24 hours EXTREMITIES: No clubbing, cyanosis, or edema. Extremities well perfused NEUROLOGICAL: Currently sedated with propofol and fentanyl. She wakes up easily follows commands x4. No focal deficits Assessment and Plan - Assessment and Plan Plan: Respiratory failure -Post operative and secondary to severe sepsis -Patient's plans to return to operating room today -Continue mechanical ventilation -SBT daily when hemodynamically stable, and abdomen is closed -Vent bundle. DuoNeb's as needed Incarcerated strangulated Ventral hernia Abdominal abscesses -Status post exploratory laparotomy and washout -Follow-up cultures, negative to date -Empiric antibiotics and antifungal (IV Vanco, IV cefepime, IV Flagyl, IV Diflucan) -ID consultation-Dr. Aguilar -Further management per general surgery -Pain controlled with fentanyl infusion and as needed IV push Septic shock -Aggressive IV fluid hydration -Dontrell-Synephrine as needed to keep map above 65 -Antibiotics as above Anemia requiring transfusion -Hemoglobin 6.2, stat 2 units PRBC ordered. DVT GI prophylaxis -Teds SCDs -Pharmacological DVT prophylaxis per surgeon -[place] Critical Care: The total critical care time was 35 minutes. Time to perform other separately billable procedures was not included in the critical care time Code Status: Full
[2018-05-04] MEDS ORDERED: Potassium Phosphate 500 MG Soluble Tablet PO PRN ×2 (08:58)
[2018-05-04] MEDS ORDERED: Potassium Phosphate Inj 30 MMOL in Sodium Chlor 0.9% Inj 250 ML IV.SIG PRN (08:58)
[2018-05-04] MEDS ORDERED: Sodium Phosphate Inj 30 MMOL in Sodium Chlor 0.9% Inj 250 ML IV.SIG PRN (08:58)
[2018-05-04] MEDS ORDERED: Potassium Chlor 20 mEq Premix 20 MEQ/100 ML PIGGYBACK IV.SIG PRN ×2 (08:58)
[2018-05-04] MEDS ORDERED: Magnesium Sulfate Inj 4 GM in Sodium Chlor 0.9% Inj 92 ML IV.SIG PRN (08:58)
[2018-05-04] MEDS ORDERED: Calcium Chloride Inj 1 GM/10 ML Syringe IV.PUSH ONE (08:58)
[2018-05-04] MEDS ORDERED: Potassium Chloride 25 MEQ Effervescent Tablet PO PRN (08:58)
[2018-05-04] MEDS ORDERED: Magnesium Oxide 400 MG Tablet PO PRN (08:58)
[2018-05-04] MEDS: Midazolam 50 MG/50 ML Inj 50 MG/50 ML BAG IV.CONT PRN ×2 (09:18→17:41)
[2018-05-04] MEDS ORDERED: DOPamine 800 MG/500 ML Premix 800 MG/500 ML PLAST..BAG IV.CONT PRN (10:54)
[2018-05-04] MEDS ORDERED: Calcium Chloride Inj 1 GM in Sodium Chlor 0.9% Inj 100 ML IV.SIG ONE (11:00)
[2018-05-04] MEDS: Potassium Chlor 40 mEq Premix 40 MEQ/100 ML PIGGYBACK IV.SIG PRN (11:43)
[2018-05-04] MEDS ORDERED: Sodium Chlor 0.9% Inj 500 ML IV.SIG ONE (12:00)
[2018-05-04] MEDS ORDERED: Phenylephrine/NS 1000 MCG/10ML Syringe IV.PUSH ONE (12:00)
--- NOTE | 2018-05-04 13:10 | P.PNID ---
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 Patient's last hospitalization was in March and at that time she presented with abdominal pain, and had pancreatitis. Her imaging studies did not show pancreatitis, pseudocyst, and an abdominal wall hernia. She she was discharged she has had on and off abdominal pain but he was not that bad, but on the day of admission she had an acute onset of severe abdominal pain. There is no mention of any fever chills or sweats. No nausea or vomiting. Imaging studies on this admission is showing incarcerated hernia and presence of intra-abdominal abscess. Surgery saw the patient, and she was taken to surgery and had exploratory laparotomy, drainage of multiple abscesses , perihepatic, and multiple intra-abdominal and pelvic abscesses. Her abdomen is currently open, and she has a wound VAC over her open abdominal incision. Patient currently is on sedation, on the respirator. She is on Dontrell-Synephrine. She is afebrile. Her white count on admission was 14,000, and it is 29,000 today. She is currently on Diflucan, Flagyl, and Levaquin. Infectious disease consultation has been requested to assist in evaluation and treatment of patient with intra-abdominal abscess. Notes reviewed D/W RN Having episodes of bradycardia, neosynephrine on hold On dopamine for BP support Going to OR this afternoon On the vent, on sedation WBC remains high at 28K Fluid C/S pending BC negative so far Antibiotics: Cefepime Flagyl Vancomycin Diflucan Lines: central line Past Medical History: Traumatic brain injury (Acute) H/O Meckel's diverticulum History of exploratory laparotomy (Acute) H/O abdominal surgery (Acute) H/O brain surgery (Chronic) History of orthopedic surgery Allergies/Adverse Reactions: Allergies amoxicillin Allergy (Severe, Verified 04/05/18 19:19) Hives penicillin G Allergy (Severe, Verified 04/05/18 19:19) Hives Objective Vital Signs 05/03/18 16:00 05/03/18 16:03 05/03/18 20:00 Temperature 97.9 F 98.2 F Pulse Rate 54 L 58 L Respiratory Rate 16 16 21 Blood Pressure 112/78 109/60 Pulse Oximetry 100 100 100 05/03/18 20:47 05/04/18 00:00 05/04/18 02:12 Temperature 97.5 F L Pulse Rate 60 Respiratory Rate 16 16 16 Blood Pressure 123/69 Pulse Oximetry 100 100 100 05/04/18 04:00 05/04/18 04:09 05/04/18 08:00 Temperature 98.3 F 98.0 F Pulse Rate 46 L 44 L Respiratory Rate 23 16 16 Blood Pressure 116/72 100/63 Pulse Oximetry 100 100 98 05/04/18 08:19 05/04/18 08:32 05/04/18 08:58 Temperature 98.0 F 97.4 F L 97.6 F Pulse Rate 44 L 55 L 43 L Respiratory Rate 21 16 16 Blood Pressure 96/61 L 122/61 112/73 Pulse Oximetry 100 100 100 05/04/18 09:00 05/04/18 11:50 05/04/18 12:00 Temperature 98.0 F Pulse Rate 45 L 60 Respiratory Rate 16 26 H Blood Pressure 107/72 Pulse Oximetry 100 100 Intake & Output 05/03/18 05/04/18 05/04/18 18:59 06:59 18:59 Intake Total 5365 / 5365 2665 / 2665 1103.5 / 1103.5 Output Total 1100 / 1100 875 / 875 Balance 4265 / 4265 1790 / 1790 1103.5 / 1103.5 Weight 60.1 kg Intake: IV 5365 / 5365 2665 / 2665 703.5 / 703.5 Neosynephrine Inj 40 MG In D5W 1000 / 1000 500 / 500 Inj 496 ML @ 20 MCG/MIN 15 mls/ hr IV.CONT TITRATE PRN Rx#: [id number] Diprivan 1000 mg/100 ml Inj 1, 100 / 100 100 / 100 93.5 / 93.5 000 mg In 100 ml @ 5 MCG/KG/MIN 1.752 mls/hr IV.CONT TITRATE PRN Rx#:[id number] NS Inj 1,000 ML @ 100 mls/hr IV 1000 / 1000 1000 / 1000 .CONT .Q10H [facility] Rx#:[id number] Calcium Chloride Inj 1 GM In NS 110 / 110 Inj 100 ML @ 110 mls/hr IV.SIG ONCE ONE Rx#:[id number] Maxipime Inj 2,000 MG In NS Inj 100 / 100 200 / 200 100 / 100 100 ML @ 200 mls/hr IV.SIG Q8H [facility] Rx#:[id number] Diflucan 400 mg Premix Bag 200 200 / 200 200 / 200 ML @ 100 mls/hr IV.SIG Q24H [facility] Rx#:[id number] NS Inj 1,000 ML @ 999 mls/hr IV 1000 / 1000 .SIG .Q1H1M [facility] Rx#:[id number] Vancomycin Inj 1,500 MG In NS 515 / 515 515 / 515 Inj 500 ML @ 250 mls/hr IV.SIG Q12H [facility] Rx#:[id number] fentaNYL 10 mcg/mL Premix Drip 250 / 250 250 / 250 2,500 mcg In 250 ml @ 50 MCG/HR 5 mls/hr IV.SIG TITRATE PRN Rx #:[id number] Flagyl 500 MG Inj 100 ML @ 100 100 / 100 100 / 100 200 / 200 mls/hr IV.SIG Q8H [facility] Rx#: [id number] Intake (Blood Product) Amt 400 / 400 Rbc As-3 Leukoreduced Unit 0 / 0 [id number] Rbc As-3 Leukoreduced Unit 400 / 400 [id number] Output: Urine Amount (Catheter) 550 / 550 650 / 650 Indwelling Urethral Catheter 550 / 550 650 / 650 Wound Vac Amount 550 / 550 225 / 225 Abdomen 550 / 550 225 / 225 Other: Mode Setting Abdomen Continuous Continuous Continuous # Bowel Movements 0 05/02/18 23:50 Abscess - Abdominal Fungal Smear - Final No fungal elements seen 05/02/18 23:50 Abscess - Abdominal Fungal Culture - Pending 05/02/18 23:50 Abscess - Abdominal Acid Fast Bacilli Smear - Final No acid fast bacilli seen 05/02/18 23:50 Abscess - Abdominal Mycobacterial Culture - Pending 05/03/18 09:12 Blood - Peripheral Aerobic Blood Culture - Preliminary No growth in 1 day 05/03/18 09:12 Blood - Peripheral Anaerobic Blood Culture - Preliminary No growth in 1 day 05/03/18 08:58 Blood - Peripheral Aerobic Blood Culture - Preliminary No growth in 1 day 05/03/18 08:58 Blood - Peripheral Anaerobic Blood Culture - Preliminary No growth in 1 day 05/02/18 16:50 Clean Catch Urine Urine Culture - Final 50-100,000 cfu/mL mixed mahad (probable contaminants ) 05/02/18 23:50 Abscess - Abdominal Gram Stain - Final 05/02/18 23:50 Abscess - Abdominal Wound Culture - Pending Lab - Hematology Results 05/02/18 05/02/18 05/03/18 15:10 23:59 02:05 WBC 14.5 H 29.2 H D RBC 4.18 2.74 L Hgb 12.7 9.3 L D 8.3 L Hct 37.3 27.9 L 25.1 L MCV 89.4 91.7 MCH 30.5 30.3 MCHC 34.2 33.1 RDW 14.1 13.8 Plt Count 379 D 367 MPV 9.0 8.6 Prelim Diff (Auto) Slide review pending Neut % (Auto) 82.4 H 92.4 H Lymph % (Auto) 5.7 L 3.0 L [place] % (Auto) 10.0 H 3.6 Eos % (Auto) 0.5 0.8 Baso % (Auto) 1.4 0.2 Neut # (Auto) 12.0 H 27.0 H Lymph # (Auto) 0.8 L 0.9 L [place] # (Auto) 1.5 H 1.0 H Eos # (Auto) 0.1 0.2 Baso # (Auto) 0.2 0.1 WBC Differential Manual diff final . Seg Neuts % (Manual) 81 H Band Neuts % (Manual) 8 H Lymphocytes % (Manual) 2 L Monocytes % (Manual) 8 Metamyelocytes % (Man) 1 Myelocytes % (Man) Abs Neuts (Manual) 13.1 H Differential Comment . Auto diff final Toxic Granulation 1+ H Platelet Estimate Normal Platelet Morphology Clumped H 05/04/18 07:10 WBC 28.0 H RBC 2.10 L Hgb 6.2 L* D Hct 19.4 L* MCV 92.4 MCH 29.4 MCHC 31.8 L RDW 13.9 Plt Count 363 MPV 9.1 Prelim Diff (Auto) Slide review pending Neut % (Auto) 89.1 H Lymph % (Auto) 4.5 L [place] % (Auto) 6.2 Eos % (Auto) 0.1 Baso % (Auto) 0.1 Neut # (Auto) 24.9 H Lymph # (Auto) 1.2 [place] # (Auto) 1.7 H Eos # (Auto) 0.0 Baso # (Auto) 0.0 WBC Differential Manual diff final Seg Neuts % (Manual) 87 H Band Neuts % (Manual) 9 H Lymphocytes % (Manual) 1 L Monocytes % (Manual) 1 Metamyelocytes % (Man) 1 Myelocytes % (Man) 1 H Abs Neuts (Manual) 27.4 H Differential Comment . Toxic Granulation 1+ H Platelet Estimate Normal Platelet Morphology Normal Lab - Chemistry Results 05/02/18 05/02/18 05/02/18 15:10 17:15 17:15 Sodium 127 L Potassium 2.8 L* Chloride 86 L Carbon Dioxide 29.9 Anion Gap 11 BUN 21 H Creatinine 0.68 Estimated GFR Greater than 89 Random Glucose 129 H Lactic Acid 1.5 Calcium 8.0 L Prot Corrected Calcium Total Bilirubin 0.6 AST 52 H ALT 16 Alkaline Phosphatase 203 H Ammonia 30 Total Protein 6.8 Albumin 1.7 L Lipase 7244 H 05/03/18 05/04/18 02:05 07:10 Sodium 134 L 139 Potassium 3.9 D 3.3 L Chloride 99 D 108 H D Carbon Dioxide 24.5 19.4 L Anion Gap 11 12 BUN 16 16 Creatinine 0.68 0.38 L Estimated GFR Greater than 89 Greater than 89 Random Glucose 157 H 133 H Lactic Acid Calcium 6.3 L* D 6.9 L* Prot Corrected Calcium 7.8 L 8.4 L Total Bilirubin 0.4 AST 33 ALT 10 Alkaline Phosphatase 107 Ammonia Total Protein 4.2 L D 4.4 L Albumin 1.0 L D Lipase 4768 H Imaging: ITS Impressions Abdomen/Pelvis CT 05/02/18 15:10 CONCLUSION: 1. Anterior abdominal wall hernia containing a loop of small bowel with air and apparent surrounding inflammatory change. There is an abnormal bowel gas pattern and this is of concern for acute obstruction with possible strangulation. 2. New large cystic structure in the pelvis with air-fluid levels as well as additional cystic collections with air-fluid levels with represent additional phlegmon or abscesses. 3. Acute pancreatitis again noted with enlarged head of the pancreas with multiple calcifications and indistinctness. There are new cystic structures within the pancreas. There are multiple calcifications again noted. Pancreatic duct remains dilated. 4. Cirrhotic appearing liver with surrounding ascites. 5. Tiny gallstone again noted. Chest X-Ray 05/03/18 01:02 CONCLUSION: 1. Right basilar density. 2. Endotracheal tube 5 mm above the arti. Physical Exam: GENERAL: Patient is a well-nourished, well-developed female, on sedation, on the vent, awakens when stimulated. She is not in respiratory distress. SKIN: Cool and dry. No generalized rash, no ecchymoses and no evidence of embolic lesions. HEAD: Atraumatic. Normocephalic. No temporal wasting, or tenderness. EYES: [place] conjunctiva. No petechia or hemorrhage. Pupils equal, round and reactive to light. No scleral icterus. No injection or drainage. EARS, NOSE AND THROAT: Nose without bleeding or purulent nasal discharge, has NGT in place. She is orally intubated.. NECK: Trachea midline. Supple and not tender, no meningeal signs CARDIOVASCULAR: Regular rate and rhythm. No murmurs, rubs or gallops heard RESPIRATORY: Coarse breath sounds bilaterally. Breath sounds equal bilaterally. No rales, wheezing or rhonchi ABDOMEN: Mildly distended, has an open abdominal incision with a wound VAC in place. There is improving erythema on the lower portion of the abdominal incision. Bowel sounds are hypoactive. EXTREMITIES: No clubbing, cyanosis, or edema. No joint effusion. Well perfused and warm. NEUROLOGICAL: Sedated PSYCHIATRIC: Unable to assess LINE: No evidence of infection Assessment and Plan - Plan Impression Sepsis with shock due to intraabdominal process Multiple intraabdominal and pelvic abscess, S/P lap and drainage of abscess, has open abdomen currently Respiratory failure Leukocytosis due to above Recommendation Continue IV Vanco Continue Cefepime Continue Flagyl Continue Diflucan Follow C/S and adjust Abx OR today Monitor progress closely D/W TEJA
[2018-05-04] MEDS ORDERED: fentaNYL Citrate Inj 250 MCG/5 ML Ampul ONE (13:46)
--- NOTE | 2018-05-04 14:56 | P.OP ---
- Preoperative Diagnosis (1) Pelvic abscess in female - Postoperative Diagnosis (1) Pelvic abscess in female Date of procedure: 05/04/18 Procedure: Cystoscopy with bilateral ureteral catheter insertion Anesthesia: ANDREYA Surgeon: Mo Beckwith DO Estimated blood loss (mL): 0 Operation and Findings: 42-year-old female with findings of a large pelvic abscess. Dr. Smith ask for urology to place bilateral ureteral catheters. The patient was brought to the operating room intubated. She was placed on the operating table in the dorsal lithotomy position and was prepped and draped in sterile fashion. Preprocedure antibiotics had been administered. 22 Upper Sorbian cystoscope was inserted the bladder paz cystoscopy did not reveal any abdomen orifice was identified a 5 Upper Sorbian Franklin catheter was inserted in the left ureteral orifice without difficulty. This was repeated on the right side without difficulty. The Franklin was then inserted and the catheters were attached to the Franklin. She tolerated the procedure well.
[2018-05-04 15:36] LABS: ABG Base Excess -7.6 mmol/L (-2-2); ABG PCO2 40 mmHg (38-42); ABG PO2 171 mmHG (61-120)
[2018-05-04] MEDS ORDERED: Sodium Bicarbonate 8.4% Inj 50 MEQ/50 ML Syringe ONE (15:42)
[2018-05-04 16:11] LABS: Baso # (Auto) 0.1 th/mm3 (0.0-0.2); Baso % (Auto) 0.3 % (0.0-2.0); Eos % (Auto) 0.1 % (0.0-4.0); Hematocrit 31.6 % (35.0-46.0); Hemoglobin 10.5 gm/dL (11.6-15.3); Lymph # (Auto) 1.9 th/mm3 (1.0-4.8); Lymph % (Auto) 7.8 % (9.0-44.0); Mean Corpuscular HGB Conc 33.3 % (32.0-36.0); Mean Corpuscular Hemoglobin 29.5 pg (27.0-34.0); Mean Corpuscular Volume 88.5 fL (80.0-100.0); Mono # (Auto) 1.4 th/mm3 (0.0-0.9); Mono % (Auto) 5.7 % (0.0-8.0); Neut # (Auto) 21.2 th/mm3 (1.8-7.7); Neut % (Auto) 86.1 % (16.0-70.0); Platelet Count 331 th/mm3 (150-450); Red Blood Count 3.58 mil/mm3 (4.00-5.30); Red Cell Distribution Width 15.5 % (11.6-17.2); White Blood Count 24.6 th/mm3 (4.0-11.0)
[2018-05-04 16:51] LABS: Lymphocytes 2 % (9-44); Metamyelocytes 2 % (0-1); Monocytes 3 % (0-8)
[2018-05-04 16:52] LABS: Dohle Bodies Present; Platelet Estimate Normal (Normal); Platelet Morphology Normal (Normal); Toxic Granulation 1+
--- NOTE | 2018-05-04 17:47 | MP ---
cc: Douglas Smith MD, Joseph D MD Thomas,Mo Rodgers,Catherine Albrecht MD DATE OF OPERATION: 05/04/2018 PREOPERATIVE DIAGNOSIS: Open abdomen from previous intra-abdominal abscess and pelvic abscess from a probable pelvic inflammatory disease. POSTOPERATIVE DIAGNOSES: Pelvic infection, open abdomen, incisional hernias, intra-abdominal abscess. PROCEDURE: 1. Rigid sigmoidoscopy. 2. Placement of ureteral stents by Dr. Mo Beckwith. PROCEDURE PERFORMED: 1. Bilateral salpingo-oophorectomy by Dr. Catherine Escalera. 2. Abdominal washout, abdominal exploration. 3. Lysis of adhesions. 4. Removal of appendiceal stump from probable previously ruptured appendicitis. 5. Drainage of pelvic abscess with intra-abdominal drain. 6. Repair of incisional hernia with closure of abdomen. ANESTHESIA: General. SURGEON: Douglas Smith MD UROLOGIST: Mo Beckwith MD CLAIM AGENT: Catherine Escalera MD INDICATIONS FOR PROCEDURE: This is a pleasant lady who came into the hospital a couple days ago. She was very sick and ill, had an acute abdomen and was found to have a large intra-abdominal and pelvic abscess from unknown etiology at that time. I had explored her, released and drained the abscess. See my previous operative note. I made arrangements to have the urologist place ureteral stents because of the amount of inflammation in the pelvis to help us identify the ureters. I have arranged with Dr. Catherine Escalera to evaluate her gynecologic organs with the suspicion that this was from PID. Then, of course I am here to oversee the mechanics of taking care of this difficult patient. She did have fairly sizable incisional hernias and the thought if we can get her stabilized and her pathology dealt with, we can proceed with closure of her abdomen today. PROCEDURE: The patient was taken to the operating room and placed in supine position. After anesthesia, she was placed in the lithotomy position. Dr. Mo Beckwith places the ureteral stents, see his operative note. I then performed a rigid sigmoidoscopy up to about 14 cm. The colon looks fairly normal at the mucosal level. I cannot get further up because of the lap pads that I had previously placed to stay the oozing are preventing me to proceed further. Dr. Escalera performs an examination of the vagina, see her operative note. After those portions of the procedure were done, we then straightened her legs, and put her in the modified lithotomy position. The VAC dressing was removed and the abdomen was prepped and draped. We first directed our attention to the two lap pads that were previously placed to stop the oozing that had developed during her initial operation. These were removed. Then, we systematically explored the abdomen. The NG tube was in the stomach. The liver is smooth. The abscess that I drained earlier has not reaccumulated. The gallbladder was palpated and appears normal. I did run the small bowel from the ligament of Treitz all the way to the ileocecal valve and this all looks normal. We see the anastomosis from her previous Meckel diverticulectomy, and this all appears intact as well. In elevating the cecum to see pathology in appendix, which I could not identify at the previous operation because of the amount of inflammatory response, I am able to identify what appears to be possibly the appendiceal stump. It does not have a suture on it. I have no history that she had an appendectomy in the past and so this stump is removed by tying it off with a Vicryl suture and then oversewing it with silk suture and this was sent down to pathology to see if this is the appendiceal stump. No other gross pathology can be seen in the cecum and ascending colon, transverse colon, and the sigmoid colon. There is some inflammation, but no evidence of perforation, no evidence of diverticulitis. Dr. Escalera assisted me on this portion of the procedure with retraction and identifying structures. In the pelvis, Dr. Escalera proceeds with a bilateral salpingo-oophorectomy, which I assist on her to perform removal of these organs that are fairly inflamed. See her operative note for the portion of this procedure, which I assisted her in retracting and identifying anatomy, in stopping bleeding and utilizing surgical instruments. Once this was done, and Dr. Escalera felt that the pathology from the NOTE KEEPER source was eliminated, we then irrigated copiously. We were able to identify the bladder, palpates normal as well. We then placed Surgicel down in the pelvis where it was oozing and this creates good hemostasis. Because of the amount of inflammatory process down to the pelvis. I elected to place a drain to drain the pelvic area with a 10 flat fluted drain. This was placed in the pouch of Casey and brought out through a separate stab wound incision in the left lower quadrant. The small bowel was then returned and the omentum was draped over the small bowel, the portion of the omentum that was left. We then closed the midline, repairing the incisional hernias that were present. We did this with a running nylon suture. One starting from the top and meeting in the midline about the umbilicus, one starting in from the bottom. I had to repair both of these incisional hernias primarily, because no mesh is indicated. We then were able to close the midline wound loosely with a skin stapling device after the edges were irrigated. A sterile bandage were applied. The patient remained intubated and will return to the intensive care unit to be stabilized. ESTIMATED BLOOD LOSS: About 250 mL At the end of the procedure, we did remove the stents. Douglas Smith MD JANGIE/edouard , 04:56 PM , 05:10 PM [id number]
[2018-05-04 22:03] LABS: Potassium 3.7 meq/L (3.5-5.1); Total Protein 4.1 g/dL (6.4-8.2)
[2018-05-05] MEDS: Oral Hygiene Kit OROPHARYNG SCH ×4 (00:05→15:34)
[2018-05-05] MEDS ORDERED: Pharmacy Ordered Lab Info OTHER ONE (00:45)
[2018-05-05] MEDS: Vancomycin Inj 1,500 MG in Sodium Chlor 0.9% Inj 500 ML IV.SIG SCH (03:02)
[2018-05-05] MEDS: Phenylephrine Inj 40 MG in Dextrose 5% in Water Inj 496 ML IV.CONT PRN ×6 (05:12→20:29)
[2018-05-05 05:31] LABS: Hematocrit 31.9 % (35.0-46.0); Hemoglobin 10.6 gm/dL (11.6-15.3); Mean Corpuscular HGB Conc 33.1 % (32.0-36.0); Mean Corpuscular Hemoglobin 29.3 pg (27.0-34.0); Mean Corpuscular Volume 88.4 fL (80.0-100.0); Mean Platelet Volume 9.2 fL (7.0-11.0); Platelet Count 359 th/mm3 (150-450); Red Blood Count 3.61 mil/mm3 (4.00-5.30); Red Cell Distribution Width 16.3 % (11.6-17.2); White Blood Count 40.2 th/mm3 (4.0-11.0)
[2018-05-05 06:03] LABS: Alanine Aminotransferase 10 U/L (10-53); Alkaline Phosphatase 75 U/L (45-117); Anion Gap 11 meq/L (5-15); Aspartate Aminotransferase 31 U/L (15-37); Blood Urea Nitrogen 16 mg/dL (7-18); Calcium 6.9 mg/dL (8.5-10.1); Carbon Dioxide 18.8 meq/L (21.0-32.0); Chloride 111 meq/L (98-107); Glomerular Filtration Rate Greater Than 89 mL/min (>89); Glucose,Random 124 mg/dL (74-106); Magnesium 1.9 mg/dL (1.5-2.5); Sodium 141 meq/L (136-145); Total Protein 4.1 g/dL (6.4-8.2)
--- NOTE | 2018-05-05 06:07 | XR ---
EXAM DATE: 05/05/2018 5:55 AM EDT AGE/SEX: 42 years / Female INDICATIONS: Shortness of breath. Possible respiratory disease. CLINICAL DATA: This is the patient's subsequent encounter. Patient reports that signs and symptoms h ave been present for 3 days and indicates a pain score of Nonresponsive. MEDICAL/SURGICAL HISTORY: Pancreatitis. None. COMPARISON: [facility], CHEST 1V SINGLE AP, 05/03/2018. . FINDINGS: The ET tube is in the low position 1.1 cm from the arti. The NG tube tip is directed into the stoma ch. There is a left subclavian line with tip in the SVC. The heart size is normal. The lungs are astrid sly clear. The cast angles are clear. CONCLUSION: ET tube in a low position 1.1 cm from the arti. Electronically signed by: Scotty Aguilar MD 05/05/2018 6:06 AM EDT
[2018-05-05] MEDS: Chlorhexidine 0.12% Oral Kit 15 ML UDC OROPHARYNG SCH ×2 (08:33→20:55)
[2018-05-05] MEDS: Famotidine PF Inj 20 MG/2 ML Vial IV.PUSH SCH ×2 (08:33→20:33)
[2018-05-05] MEDS: fentaNYL 10 mcg/mL Premix Drip 2,500 MCG/250 ML BAG IV.SIG PRN (08:34)
--- NOTE | 2018-05-05 08:59 | P.PNCC ---
Subjective Subjective Remarks/Hospital Course: 42 year old female admitted for an evaluation of abdominal pain. The abdominal pain has acutely worsened today. Her pain pain has been present intermittently for about 2 weeks but it was not as severe in nature. She has been into the hospital previously and was told she has an abdominal ventral hernia. At that time there was no acute concerns or evidence of strangulation/incarceration. The CAT scan obtained in the emergency department showed large cystic structure in the pelvis with air-fluid levels as well as additional cystic collections with air-fluid levels which represent additional phlegmon or abscesses. She was taken emergently to operating room by Dr. Smith with finding of a fair amount of old blood that was in the abdomen and then down the pelvis as well as a fairly sizable abscess. She has had an abscess around the liver, which was evacuated and irrigated. A portion of the omentum was removed because it was partially necrotic. A second abscess was identified in a portion of the pouch of Casey, which was evacuated, cultured as well. The abdomen was packed down the pelvis with two pads and then placed the VAC ABThera temporary closure device as the patient is planned to be broad back to operating room after stabilization in the intensive care unit. SUBJ 05/04: Remains intubated sedated remains critical. Currently on Dontrell- Synephrine to maintain map above 65. Hemoglobin came back at 6.2 ordered to receive 2 units of PRBC. White count is 28,000. Plan for OR 4 PM today. 05/05: Remains intubated and mechanically ventilated. Requiring vasopressor therapy with Dontrell-Synephrine to maintain suitable mean arterial pressure. White count markedly elevated. Abdominal closure yesterday. Objective Vital Signs / I&O: Vital Signs 05/04/18 08:58 05/04/18 09:00 05/04/18 11:50 Temperature 97.6 F Pulse Rate 43 L 45 L Respiratory Rate 16 16 Blood Pressure 112/73 Pulse Oximetry 100 100 05/04/18 12:00 05/04/18 15:47 05/04/18 19:56 Temperature 98.0 F Pulse Rate 60 Respiratory Rate 26 H 0 L 16 Blood Pressure 107/72 Pulse Oximetry 100 100 05/04/18 20:00 05/05/18 00:00 05/05/18 00:10 Temperature 97.8 F 98.5 F Pulse Rate 70 64 Respiratory Rate 16 16 16 Blood Pressure 104/71 120/70 Pulse Oximetry 100 100 100 05/05/18 03:22 05/05/18 04:00 05/05/18 08:30 Temperature 98.7 F Pulse Rate 66 Respiratory Rate 16 16 14 Blood Pressure 112/56 L Pulse Oximetry 100 100 100 Intake & Output 05/04/18 05/05/18 05/05/18 18:59 06:59 18:59 Intake Total 4618.5 / 4618.5 2400 / 2400 450 / 450 Output Total 1465 / 1465 520 / 520 Balance 3153.5 / 3153.5 1880 / 1880 450 / 450 Weight 63.1 kg Intake: IV 1618.5 / 1618.5 2400 / 2400 450 / 450 Versed Inj 50 mg In 50 ml @ 2 50 / 50 MG/HR 2 mls/hr IV.CONT TITRATE PRN Rx#:[id number] Neosynephrine Inj 40 MG In D5W 1000 / 1000 Inj 496 ML @ 20 MCG/MIN 15 mls/ hr IV.CONT TITRATE PRN Rx#: [id number] Diprivan 1000 mg/100 ml Inj 1, 93.5 / 93.5 000 mg In 100 ml @ 5 MCG/KG/MIN 1.752 mls/hr IV.CONT TITRATE PRN Rx#:[id number] NS Inj 1,000 ML @ 100 mls/hr IV 1000 / 1000 .CONT .Q10H [facility] Rx#:[id number] Calcium Chloride Inj 1 GM In NS 110 / 110 Inj 100 ML @ 110 mls/hr IV.SIG ONCE ONE Rx#:[id number] Maxipime Inj 2,000 MG In NS Inj 100 / 100 200 / 200 100 ML @ 200 mls/hr IV.SIG Q8H [facility] Rx#:[id number] Diflucan 400 mg Premix Bag 200 200 / 200 200 / 200 ML @ 100 mls/hr IV.SIG Q24H [facility] Rx#:[id number] KCl 40 mEq Premix Inj 40 meq In 100 / 100 100 ml @ 25 mls/hr IV.SIG UNSCH PRN Rx#:[id number] Vancomycin Inj 1,500 MG In NS 515 / 515 Inj 500 ML @ 250 mls/hr IV.SIG Q12H [facility] Rx#:[id number] fentaNYL 10 mcg/mL Premix Drip 250 / 250 250 / 250 2,500 mcg In 250 ml @ 50 MCG/HR 5 mls/hr IV.SIG TITRATE PRN Rx #:[id number] Flagyl 500 MG Inj 100 ML @ 100 200 / 200 200 / 200 mls/hr IV.SIG Q8H [facility] Rx#: [id number] Anesthesia Amount 2200 / 2200 Intake (Blood Product) Amt 800 / 800 Rbc As-3 Leukoreduced Unit 400 / 400 [id number] Rbc As-3 Leukoreduced Unit 0 / 0 [id number] Rbc As-3 Leukoreduced Unit 400 / 400 [id number] Output: Stool 0 / 0 Estimated Blood Loss 250 / 250 Urine Amount (Catheter) 850 / 850 300 / 300 Indwelling Urethral Catheter 850 / 850 300 / 300 Wound Drainage 115 / 115 220 / 220 # 1 Abdomen 220 / 220 Abdomen 115 / 115 Wound Vac Amount 250 / 250 Abdomen 250 / 250 Other: Mode Setting Abdomen Continuous # Bowel Movements 0 Result Diagrams: 05/05/18 05:00 05/05/18 05:00 Objective Remarks: GENERAL: Patient is a well-nourished, well-developed female, sedated on vent but wakes up easily. SKIN: No generalized rash, no ecchymoses HEAD: Atraumatic. Normocephalic. EYES: Pupils equal, round and reactive to light. No scleral icterus. No injection or drainage. ENT: NGT in place. Orotracheally intubated NECK: Trachea midline. Supple CARDIOVASCULAR: Regular rate and rhythm. No murmurs, rubs or gallops heard. On 40 mics of Dontrell-Synephrine to maintain map >65 RESPIRATORY: Coarse breath sounds bilaterally. Breath sounds equal bilaterally. No rales, wheezing or rhonchi ABDOMEN: Closed abdomen. Cristobal-Timmons drains draining dark fluid. EXTREMITIES: No clubbing, cyanosis, or edema. Extremities well perfused NEUROLOGICAL: Currently sedated with and fentanyl. She wakes up easily follows commands x4. No focal deficits Assessment and Plan - Assessment and Plan Plan: Respiratory failure -Post operative and secondary to severe sepsis -Patient's plans to return to operating room today -Continue mechanical ventilation -SBT daily when hemodynamically stable, and abdomen is closed -Vent bundle. DuoNeb's as needed Incarcerated strangulated Ventral hernia Abdominal abscesses -Status post exploratory laparotomy and washout -Follow-up cultures, negative to date -Empiric antibiotics and antifungal (IV Vanco, IV cefepime, IV Flagyl, IV Diflucan) -ID consultation-Dr. Aguilar -Further management per general surgery -Pain controlled with fentanyl infusion and as needed IV push Septic shock -Aggressive IV fluid hydration -Dontrell-Synephrine as needed to keep map above 65 -Antibiotics as above Anemia requiring transfusion -Hemoglobin 6.2, stat 2 units PRBC ordered. DVT GI prophylaxis -Teds SCDs -Pharmacological DVT prophylaxis per surgeon -Manolo Overall impression: This woman remains critically ill and mechanical ventilator dependent following drainage of gram-negative intra-abdominal abscesses. The abdomen was closed yesterday the patient remains septic and requiring vasopressor support with Dontrell-Synephrine. She remains hemodynamically unstable. Critical care time 40 minutes aside from procedures.
[2018-05-05] MEDS: Sod Chloride 0.9% Inj 1,000 ML IV.CONT SCH ×3 (09:33→18:05)
[2018-05-05] MEDS ORDERED: Sod Chloride 0.9% Inj 2,000 ML IV.SIG ONE (10:42)
--- NOTE | 2018-05-05 12:51 | P.PNGS ---
<AriadneCady - Last Filed: 05/05/18 12:46> Subjective Interval history: Intubated/Answers yes and no questions Physical Exam Vital signs: Vital Signs 05/04/18 15:47 05/04/18 19:56 05/04/18 20:00 Temperature 97.8 F Pulse Rate 70 Respiratory Rate 0 L 16 16 Blood Pressure 104/71 Pulse Oximetry 100 100 05/05/18 00:00 05/05/18 00:10 05/05/18 03:22 Temperature 98.5 F Pulse Rate 64 Respiratory Rate 16 16 16 Blood Pressure 120/70 Pulse Oximetry 100 100 100 05/05/18 04:00 05/05/18 08:00 05/05/18 08:30 Temperature 98.7 F 98.2 F Pulse Rate 66 78 Respiratory Rate 16 17 14 Blood Pressure 112/56 L 106/48 L Pulse Oximetry 100 100 100 05/05/18 09:00 05/05/18 09:34 05/05/18 12:16 Temperature Pulse Rate 78 Respiratory Rate 15 14 Blood Pressure Pulse Oximetry 100 Intake & Output 05/04/18 05/05/18 05/05/18 18:59 06:59 18:59 Intake Total 4618.5 / 4618.5 2400 / 2400 950 / 950 Output Total 1465 / 1465 520 / 520 Balance 3153.5 / 3153.5 1880 / 1880 950 / 950 Weight 63.1 kg Intake: IV 1618.5 / 1618.5 2400 / 2400 950 / 950 Versed Inj 50 mg In 50 ml @ 2 50 / 50 MG/HR 2 mls/hr IV.CONT TITRATE PRN Rx#:[id number] Neosynephrine Inj 40 MG In D5W 1000 / 1000 500 / 500 Inj 496 ML @ 20 MCG/MIN 15 mls/ hr IV.CONT TITRATE PRN Rx#: [id number] Diprivan 1000 mg/100 ml Inj 1, 93.5 / 93.5 000 mg In 100 ml @ 5 MCG/KG/MIN 1.752 mls/hr IV.CONT TITRATE PRN Rx#:[id number] NS Inj 1,000 ML @ 100 mls/hr IV 1000 / 1000 .CONT .Q10H [facility] Rx#:[id number] Calcium Chloride Inj 1 GM In NS 110 / 110 Inj 100 ML @ 110 mls/hr IV.SIG ONCE ONE Rx#:[id number] Maxipime Inj 2,000 MG In NS Inj 100 / 100 200 / 200 100 ML @ 200 mls/hr IV.SIG Q8H [facility] Rx#:[id number] Diflucan 400 mg Premix Bag 200 200 / 200 200 / 200 ML @ 100 mls/hr IV.SIG Q24H [facility] Rx#:[id number] KCl 40 mEq Premix Inj 40 meq In 100 / 100 100 ml @ 25 mls/hr IV.SIG UNSCH PRN Rx#:[id number] Vancomycin Inj 1,500 MG In NS 515 / 515 Inj 500 ML @ 250 mls/hr IV.SIG Q12H [facility] Rx#:[id number] fentaNYL 10 mcg/mL Premix Drip 250 / 250 250 / 250 2,500 mcg In 250 ml @ 50 MCG/HR 5 mls/hr IV.SIG TITRATE PRN Rx #:[id number] Flagyl 500 MG Inj 100 ML @ 100 200 / 200 200 / 200 mls/hr IV.SIG Q8H [facility] Rx#: [id number] Anesthesia Amount 2200 / 2200 Intake (Blood Product) Amt 800 / 800 Rbc As-3 Leukoreduced Unit 400 / 400 [id number] Rbc As-3 Leukoreduced Unit 0 / 0 [id number] Rbc As-3 Leukoreduced Unit 400 / 400 [id number] Output: Stool 0 / 0 Estimated Blood Loss 250 / 250 Urine Amount (Catheter) 850 / 850 300 / 300 Indwelling Urethral Catheter 850 / 850 300 / 300 Wound Drainage 115 / 115 220 / 220 # 1 Abdomen 220 / 220 Abdomen 115 / 115 Wound Vac Amount 250 / 250 Abdomen 250 / 250 Other: Mode Setting Abdomen Continuous # Bowel Movements 0 Narrative: Alert; intubated Cardio: RRR Resp: CTAB Abd: midline incision with moderate amount of drainage on dressing; changed; ILA dressing changed; ILA with thin dark fluid Mild generalized edema - Urinary Catheter Management Indwelling Urethral Catheter Cath placed during this visit: no Reason for continuing: Hourly intake/output Assessment and Plan - Assessment (1) Intra-abdominal abscess Code(s): K65.1 - Peritoneal abscess Status: Acute Plan: 42 year old female s/p exploratory laparotomy; partial omentectomy; drainage of pelvic abscess; drainage of intra-abdominal abscess; drainage of perihepatic abscess; application of wound VAC device; lysis of adhesions; POD1 bilateral salpingo-oophorecromy (Dr. 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 Code(s): K43.1 - Incisional hernia with gangrene Status: Acute (4) Acute pancreatitis Code(s): K85.90 - Acute pancreatitis without necrosis or infection, unspecified Status: Chronic (5) Acute on chronic pancreatitis Code(s): K85.90 - Acute pancreatitis without necrosis or infection, unspecified ; K86.1 - Other chronic pancreatitis Status: Chronic (6) Abdominal pain Code(s): R10.9 - Unspecified abdominal pain Status: Chronic (7) H/O brain surgery Code(s): Z98.890 - Other specified postprocedural states Status: Chronic <Douglas Foy - Last Filed: 05/05/18 15:08> Subjective Interval history: Patient on the ventilator Physical Exam Vital signs: Vital Signs 05/04/18 15:47 05/04/18 19:56 05/04/18 20:00 Temperature 97.8 F Pulse Rate 70 Respiratory Rate 0 L 16 16 Blood Pressure 104/71 Pulse Oximetry 100 100 05/05/18 00:00 05/05/18 00:10 05/05/18 03:22 Temperature 98.5 F Pulse Rate 64 Respiratory Rate 16 16 16 Blood Pressure 120/70 Pulse Oximetry 100 100 100 05/05/18 04:00 05/05/18 08:00 05/05/18 08:30 Temperature 98.7 F 98.2 F Pulse Rate 66 78 Respiratory Rate 16 17 14 Blood Pressure 112/56 L 106/48 L Pulse Oximetry 100 100 100 05/05/18 09:00 05/05/18 09:34 05/05/18 12:00 Temperature 98.4 F Pulse Rate 78 81 Respiratory Rate 15 18 Blood Pressure 111/58 L Pulse Oximetry 100 05/05/18 12:16 Temperature Pulse Rate Respiratory Rate 14 Blood Pressure Pulse Oximetry 100 Intake & Output 05/04/18 05/05/18 05/05/18 18:59 06:59 18:59 Intake Total 4618.5 / 4618.5 2400 / 2400 950 / 950 Output Total 1465 / 1465 520 / 520 Balance 3153.5 / 3153.5 1880 / 1880 950 / 950 Weight 63.1 kg Intake: IV 1618.5 / 1618.5 2400 / 2400 950 / 950 Versed Inj 50 mg In 50 ml @ 2 50 / 50 MG/HR 2 mls/hr IV.CONT TITRATE PRN Rx#:[id number] Neosynephrine Inj 40 MG In D5W 1000 / 1000 500 / 500 Inj 496 ML @ 20 MCG/MIN 15 mls/ hr IV.CONT TITRATE PRN Rx#: [id number] Diprivan 1000 mg/100 ml Inj 1, 93.5 / 93.5 000 mg In 100 ml @ 5 MCG/KG/MIN 1.752 mls/hr IV.CONT TITRATE PRN Rx#:[id number] NS Inj 1,000 ML @ 100 mls/hr IV 1000 / 1000 .CONT .Q10H [facility] Rx#:[id number] Calcium Chloride Inj 1 GM In NS 110 / 110 Inj 100 ML @ 110 mls/hr IV.SIG ONCE ONE Rx#:[id number] Maxipime Inj 2,000 MG In NS Inj 100 / 100 200 / 200 100 ML @ 200 mls/hr IV.SIG Q8H [facility] Rx#:[id number] Diflucan 400 mg Premix Bag 200 200 / 200 200 / 200 ML @ 100 mls/hr IV.SIG Q24H [facility] Rx#:[id number] KCl 40 mEq Premix Inj 40 meq In 100 / 100 100 ml @ 25 mls/hr IV.SIG UNSCH PRN Rx#:[id number] Vancomycin Inj 1,500 MG In NS 515 / 515 Inj 500 ML @ 250 mls/hr IV.SIG Q12H [facility] Rx#:[id number] fentaNYL 10 mcg/mL Premix Drip 250 / 250 250 / 250 2,500 mcg In 250 ml @ 50 MCG/HR 5 mls/hr IV.SIG TITRATE PRN Rx #:[id number] Flagyl 500 MG Inj 100 ML @ 100 200 / 200 200 / 200 mls/hr IV.SIG Q8H [facility] Rx#: [id number] Anesthesia Amount 2200 / 2200 Intake (Blood Product) Amt 800 / 800 Rbc As-3 Leukoreduced Unit 400 / 400 [id number] Rbc As-3 Leukoreduced Unit 0 / 0 [id number] Rbc As-3 Leukoreduced Unit 400 / 400 [id number] Output: Stool 0 / 0 Estimated Blood Loss 250 / 250 Urine Amount (Catheter) 850 / 850 300 / 300 Indwelling Urethral Catheter 850 / 850 300 / 300 Wound Drainage 115 / 115 220 / 220 # 1 Abdomen 220 / 220 Abdomen 115 / 115 Wound Vac Amount 250 / 250 Abdomen 250 / 250 Other: Mode Setting Abdomen Continuous # Bowel Movements 0 - Urinary Catheter Management Indwelling Urethral Catheter Cath placed during this visit: no Assessment and Plan - Assessment (1) Intra-abdominal abscess Code(s): K65.1 - Peritoneal abscess Status: Acute (2) Incisional hernia of anterior abdominal wall with obstruction Code(s): K43.0 - Incisional hernia with obstruction, without gangrene Status: Acute (3) 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 DOUGLAS FOY I agree with above assessment and plan. The exam, history, and the medical decision-making described in the above note were completed with the assistance of the mid-level provider. I reviewed and agree with the findings presented. I attest that I had a [id number] encounter with the patient on the same day, and personally performed and documented my assessment and findings in the medical record. The following services were provided during this hospital visit: Chart data review, vital sign assessments/reviewing monitor data Review of consultations notes if present. Medication orders/review and/or management Ordering and/or reviewing lab tests Ordering and/or interpreting/reviewing x-rays and/or diagnostic studies Care of the patient and discussion of the patient with the care team Documentation time To help prompt me to consider important information that might be impacting today's encounter and assessment, Information from prior notes written by myself or my colleagues may have been "brought forward/copy and pasted" into today's note. <Cady Ron - Last Filed: 05/05/18 12:46> (4) Acute pancreatitis Qualifiers: Pancreatitis type: alcohol induced (6) Abdominal pain Qualifiers: Abdominal location: generalized Qualified Code(s): R10.84 - Generalized abdominal pain <Douglas Foy - Last Filed: 05/05/18 15:08> (4) Acute pancreatitis Qualifiers: Pancreatitis type: alcohol induced (6) Abdominal pain Qualifiers: Abdominal location: generalized Qualified Code(s): R10.84 - Generalized abdominal pain
--- NOTE | 2018-05-05 13:24 | P.PNID ---
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 Patient's last hospitalization was in March and at that time she presented with abdominal pain, and had pancreatitis. Her imaging studies did not show pancreatitis, pseudocyst, and an abdominal wall hernia. She she was discharged she has had on and off abdominal pain but he was not that bad, but on the day of admission she had an acute onset of severe abdominal pain. There is no mention of any fever chills or sweats. No nausea or vomiting. Imaging studies on this admission is showing incarcerated hernia and presence of intra-abdominal abscess. Surgery saw the patient, and she was taken to surgery and had exploratory laparotomy, drainage of multiple abscesses , perihepatic, and multiple intra-abdominal and pelvic abscesses. Her abdomen is currently open, and she has a wound VAC over her open abdominal incision. Patient currently is on sedation, on the respirator. She is on Dontrell-Synephrine. She is afebrile. Her white count on admission was 14,000, and it is 29,000 today. She is currently on Diflucan, Flagyl, and Levaquin. Infectious disease consultation has been requested to assist in evaluation and treatment of patient with intra-abdominal abscess. Notes reviewed D/W RN Had surgery yesterday: 1. Bilateral salpingo-oophorectomy by Dr. Catherine Escalera. 2. Abdominal washout, abdominal exploration. 3. Lysis of adhesions. 4. Removal of appendiceal stump from probable previously ruptured appendicitis. 5. Drainage of pelvic abscess with intra-abdominal drain. 6. Repair of incisional hernia with closure of abdomen. On neosynephrine On fentanyl for sedation On the vent Temps ok WBC up to 40K Fluid C/S mixed aerobes and anaerobes BC negative so far Antibiotics: Cefepime Flagyl Vancomycin Diflucan Lines: central line Past Medical History: Traumatic brain injury (Acute) H/O Meckel's diverticulum History of exploratory laparotomy (Acute) H/O abdominal surgery (Acute) H/O brain surgery (Chronic) History of orthopedic surgery Allergies/Adverse Reactions: Allergies amoxicillin Allergy (Severe, Verified 04/05/18 19:19) Hives penicillin G Allergy (Severe, Verified 04/05/18 19:19) Hives Objective Vital Signs 05/04/18 15:47 05/04/18 19:56 05/04/18 20:00 Temperature 97.8 F Pulse Rate 70 Respiratory Rate 0 L 16 16 Blood Pressure 104/71 Pulse Oximetry 100 100 05/05/18 00:00 05/05/18 00:10 05/05/18 03:22 Temperature 98.5 F Pulse Rate 64 Respiratory Rate 16 16 16 Blood Pressure 120/70 Pulse Oximetry 100 100 100 05/05/18 04:00 05/05/18 08:00 05/05/18 08:30 Temperature 98.7 F 98.2 F Pulse Rate 66 78 Respiratory Rate 16 17 14 Blood Pressure 112/56 L 106/48 L Pulse Oximetry 100 100 100 05/05/18 09:00 05/05/18 09:34 05/05/18 12:00 Temperature 98.4 F Pulse Rate 78 81 Respiratory Rate 15 18 Blood Pressure 111/58 L Pulse Oximetry 100 05/05/18 12:16 Temperature Pulse Rate Respiratory Rate 14 Blood Pressure Pulse Oximetry 100 Intake & Output 05/04/18 05/05/18 05/05/18 18:59 06:59 18:59 Intake Total 4618.5 / 4618.5 2400 / 2400 950 / 950 Output Total 1465 / 1465 520 / 520 Balance 3153.5 / 3153.5 1880 / 1880 950 / 950 Weight 63.1 kg Intake: IV 1618.5 / 1618.5 2400 / 2400 950 / 950 Versed Inj 50 mg In 50 ml @ 2 50 / 50 MG/HR 2 mls/hr IV.CONT TITRATE PRN Rx#:[id number] Neosynephrine Inj 40 MG In D5W 1000 / 1000 500 / 500 Inj 496 ML @ 20 MCG/MIN 15 mls/ hr IV.CONT TITRATE PRN Rx#: [id number] Diprivan 1000 mg/100 ml Inj 1, 93.5 / 93.5 000 mg In 100 ml @ 5 MCG/KG/MIN 1.752 mls/hr IV.CONT TITRATE PRN Rx#:[id number] NS Inj 1,000 ML @ 100 mls/hr IV 1000 / 1000 .CONT .Q10H ALMA Rx#:[id number] Calcium Chloride Inj 1 GM In NS 110 / 110 Inj 100 ML @ 110 mls/hr IV.SIG ONCE ONE Rx#:[id number] Maxipime Inj 2,000 MG In NS Inj 100 / 100 200 / 200 100 ML @ 200 mls/hr IV.SIG Q8H [facility] Rx#:[id number] Diflucan 400 mg Premix Bag 200 200 / 200 200 / 200 ML @ 100 mls/hr IV.SIG Q24H [facility]MA Rx#:[id number] KCl 40 mEq Premix Inj 40 meq In 100 / 100 100 ml @ 25 mls/hr IV.SIG UNSCH PRN Rx#:[id number] Vancomycin Inj 1,500 MG In NS 515 / 515 Inj 500 ML @ 250 mls/hr IV.SIG Q12H [facility] Rx#:[id number] fentaNYL 10 mcg/mL Premix Drip 250 / 250 250 / 250 2,500 mcg In 250 ml @ 50 MCG/HR 5 mls/hr IV.SIG TITRATE PRN Rx #:[id number] Flagyl 500 MG Inj 100 ML @ 100 200 / 200 200 / 200 mls/hr IV.SIG Q8H [facility] Rx#: [id number] Anesthesia Amount 2200 / 2200 Intake (Blood Product) Amt 800 / 800 Rbc As-3 Leukoreduced Unit 400 / 400 [id number] Rbc As-3 Leukoreduced Unit 0 / 0 [id number] Rbc As-3 Leukoreduced Unit 400 / 400 [id number] Output: Stool 0 / 0 Estimated Blood Loss 250 / 250 Urine Amount (Catheter) 850 / 850 300 / 300 Indwelling Urethral Catheter 850 / 850 300 / 300 Wound Drainage 115 / 115 220 / 220 # 1 Abdomen 220 / 220 Abdomen 115 / 115 Wound Vac Amount 250 / 250 Abdomen 250 / 250 Other: Mode Setting Abdomen Continuous # Bowel Movements 0 05/03/18 09:12 Blood - Peripheral Aerobic Blood Culture - Preliminary No growth in 2 days 05/03/18 09:12 Blood - Peripheral Anaerobic Blood Culture - Preliminary No growth in 2 days 05/03/18 08:58 Blood - Peripheral Aerobic Blood Culture - Preliminary No growth in 2 days 05/03/18 08:58 Blood - Peripheral Anaerobic Blood Culture - Preliminary No growth in 2 days 05/02/18 23:50 Abscess - Abdominal Gram Stain - Final 05/02/18 23:50 Abscess - Abdominal Wound Culture - Final 05/02/18 23:50 Abscess - Abdominal Fungal Smear - Final No fungal elements seen 05/02/18 23:50 Abscess - Abdominal Fungal Culture - Pending 05/02/18 23:50 Abscess - Abdominal Acid Fast Bacilli Smear - Final No acid fast bacilli seen 05/02/18 23:50 Abscess - Abdominal Mycobacterial Culture - Pending 05/02/18 16:50 Clean Catch Urine Urine Culture - Final 50-100,000 cfu/mL mixed mahad (probable contaminants ) Lab - Hematology Results 05/04/18 05/04/18 05/04/18 07:10 15:35 20:40 WBC 28.0 H 24.6 H RBC 2.10 L 3.58 L Hgb 6.2 L* D 10.5 L D 10.1 L Hct 19.4 L* 31.6 L MCV 92.4 88.5 D MCH 29.4 29.5 MCHC 31.8 L 33.3 RDW 13.9 15.5 Plt Count 363 331 MPV 9.1 9.0 Prelim Diff (Auto) Slide review pending Slide review pending Neut % (Auto) 89.1 H 86.1 H Lymph % (Auto) 4.5 L 7.8 L [place] % (Auto) 6.2 5.7 Eos % (Auto) 0.1 0.1 Baso % (Auto) 0.1 0.3 Neut # (Auto) 24.9 H 21.2 H Lymph # (Auto) 1.2 1.9 [place] # (Auto) 1.7 H 1.4 H Eos # (Auto) 0.0 0.0 Baso # (Auto) 0.0 0.1 WBC Differential Manual diff final Manual diff final Seg Neuts % (Manual) 87 H 90 H Band Neuts % (Manual) 9 H 3 Lymphocytes % (Manual) 1 L 2 L Monocytes % (Manual) 1 3 Metamyelocytes % (Man) 1 2 H Myelocytes % (Man) 1 H Abs Neuts (Manual) 27.4 H 23.4 H Differential Comment . . Toxic Granulation 1+ H 1+ H Dohle Bodies Present H Platelet Estimate Normal Normal Platelet Morphology Normal Normal 05/05/18 05:00 WBC 40.2 H D RBC 3.61 L Hgb 10.6 L Hct 31.9 L MCV 88.4 MCH 29.3 MCHC 33.1 RDW 16.3 Plt Count 359 MPV 9.2 Prelim Diff (Auto) Neut % (Auto) Lymph % (Auto) [place] % (Auto) Eos % (Auto) Baso % (Auto) Neut # (Auto) Lymph # (Auto) [place] # (Auto) Eos # (Auto) Baso # (Auto) WBC Differential Seg Neuts % (Manual) Band Neuts % (Manual) Lymphocytes % (Manual) Monocytes % (Manual) Metamyelocytes % (Man) Myelocytes % (Man) Abs Neuts (Manual) Differential Comment Toxic Granulation Dohle Bodies Platelet Estimate Platelet Morphology Lab - Chemistry Results 05/04/18 05/04/18 05/05/18 07:10 20:40 05:00 Sodium 139 141 Potassium 3.3 L 3.7 4.0 Chloride 108 H D 111 H Carbon Dioxide 19.4 L 18.8 L Anion Gap 12 11 BUN 16 16 Creatinine 0.38 L 0.62 Estimated GFR Greater than 89 Greater than 89 Random Glucose 133 H 124 H Calcium 6.9 L* 7.0 L* 6.9 L* Prot Corrected Calcium 8.4 L 8.7 8.6 Magnesium 1.9 Total Bilirubin 0.3 AST 31 ALT 10 Alkaline Phosphatase 75 Total Protein 4.4 L 4.1 L 4.1 L Albumin 1.0 L Imaging: ITS Impressions Abdomen/Pelvis CT 05/02/18 15:10 CONCLUSION: 1. Anterior abdominal wall hernia containing a loop of small bowel with air and apparent surrounding inflammatory change. There is an abnormal bowel gas pattern and this is of concern for acute obstruction with possible strangulation. 2. New large cystic structure in the pelvis with air-fluid levels as well as additional cystic collections with air-fluid levels with represent additional phlegmon or abscesses. 3. Acute pancreatitis again noted with enlarged head of the pancreas with multiple calcifications and indistinctness. There are new cystic structures within the pancreas. There are multiple calcifications again noted. Pancreatic duct remains dilated. 4. Cirrhotic appearing liver with surrounding ascites. 5. Tiny gallstone again noted. Chest X-Ray 05/05/18 06:00 CONCLUSION: ET tube in a low position 1.1 cm from the arti. Physical Exam: GENERAL: on sedation, on the vent, awakens when stimulated. She is not in respiratory distress. SKIN: Cool and dry. No generalized rash, no ecchymoses and no evidence of embolic lesions. HEAD: Atraumatic. Normocephalic. No temporal wasting, or tenderness. EYES: [place] conjunctiva. No petechia or hemorrhage. Pupils equal, round and reactive to light. No scleral icterus. No injection or drainage. EARS, NOSE AND THROAT: Nose without bleeding or purulent nasal discharge, has NGT in place. She is orally intubated.. NECK: Trachea midline. Supple and not tender, no meningeal signs CARDIOVASCULAR: Regular rate and rhythm. No murmurs, rubs or gallops heard RESPIRATORY: Coarse breath sounds bilaterally. No rales, wheezing or rhonchi ABDOMEN: Mildly distended, has midline incision with dry dressing. One ILA in LLQ with sanguineous fluid. Tender on palpation. Bowel sounds are hypoactive. EXTREMITIES: No clubbing, cyanosis, or edema. Well perfused and warm. NEUROLOGICAL: Sedated PSYCHIATRIC: Unable to assess LINE: No evidence of infection Assessment and Plan - Plan Impression Sepsis with shock due to intraabdominal process Multiple intraabdominal and pelvic abscess, S/P lap and drainage of abscess - S/P reexploration and closure Respiratory failure Leukocytosis due to above, worse Recommendation Continue IV Vanco Continue Cefepime Continue Flagyl Continue Diflucan Follow C/S and adjust Abx Monitor progress closely Follow CBC D/W RN Dr Sera Hernadez covering this weekend
[2018-05-06] MEDS: Oral Hygiene Kit OROPHARYNG SCH ×4 (00:33→17:44)
[2018-05-06] MEDS: fentaNYL 10 mcg/mL Premix Drip 2,500 MCG/250 ML BAG IV.SIG PRN ×2 (00:34→23:42)
[2018-05-06] MEDS: Midazolam 50 MG/50 ML Inj 50 MG/50 ML BAG IV.CONT PRN (01:57)
[2018-05-06] MEDS: Sod Chloride 0.9% Inj 1,000 ML IV.CONT SCH ×3 (04:02→23:43)
[2018-05-06 05:56] LABS: Baso # (Auto) 0.4 th/mm3 (0.0-0.2); Baso % (Auto) 1.3 % (0.0-2.0); Eos # (Auto) 0.2 th/mm3 (0.0-0.4); Eos % (Auto) 0.7 % (0.0-4.0); Hematocrit 24.1 % (35.0-46.0); Lymph % (Auto) 6.3 % (9.0-44.0); Mean Corpuscular HGB Conc 33.1 % (32.0-36.0); Mean Corpuscular Hemoglobin 29.5 pg (27.0-34.0); Mean Corpuscular Volume 89.1 fL (80.0-100.0); Mean Platelet Volume 8.5 fL (7.0-11.0); Mono # (Auto) 1.2 th/mm3 (0.0-0.9); Mono % (Auto) 3.8 % (0.0-8.0); Neut # (Auto) 27.8 th/mm3 (1.8-7.7); Neut % (Auto) 87.9 % (16.0-70.0); Platelet Count 266 th/mm3 (150-450); Red Blood Count 2.71 mil/mm3 (4.00-5.30); Red Cell Distribution Width 15.8 % (11.6-17.2); White Blood Count 31.6 th/mm3 (4.0-11.0)
[2018-05-06 06:22] LABS: Anion Gap 11 meq/L (5-15); Blood Urea Nitrogen 18 mg/dL (7-18); Calcium 6.6 mg/dL (8.5-10.1); Carbon Dioxide 16.4 meq/L (21.0-32.0); Chloride 114 meq/L (98-107); Glomerular Filtration Rate Greater Than 89 mL/min (>89); Glucose,Random 109 mg/dL (74-106); Lipase 4383 U/L (73-393); Potassium 3.1 meq/L (3.5-5.1); Sodium 141 meq/L (136-145); Vancomycin,Random 12.6 Comment
[2018-05-06 06:33] LABS: Total Protein 3.8 g/dL (6.4-8.2)
[2018-05-06 07:45] LABS: Eosinophils 1 % (0-4); Lymphocytes 2 % (9-44); Metamyelocytes 1 % (0-1); Monocytes 2 % (0-8); Myelocytes 1 % (0-0); Platelet Estimate Normal (Normal); Platelet Morphology Normal (Normal)
[2018-05-06 07:46] LABS: RBC Morphology Normal (Normal)
[2018-05-06] MEDS: Phenylephrine Inj 40 MG in Dextrose 5% in Water Inj 496 ML IV.CONT PRN ×4 (08:00→17:53)
[2018-05-06] MEDS: Famotidine PF Inj 20 MG/2 ML Vial IV.PUSH SCH ×2 (08:33→23:43)
[2018-05-06] MEDS: Chlorhexidine 0.12% Oral Kit 15 ML UDC OROPHARYNG SCH ×2 (08:33→23:43)
[2018-05-06] MEDS: Potassium Chlor 40 mEq Premix 40 MEQ/100 ML PIGGYBACK IV.SIG PRN ×2 (08:34→13:31)
--- NOTE | 2018-05-06 11:39 | P.PNGS ---
Subjective Patient reports: other (sedated on vent, currently under CPAP trial) Physical Exam Vital signs: Vital Signs 05/05/18 12:00 05/05/18 12:16 05/05/18 16:00 Temperature 98.4 F 98.3 F Pulse Rate 81 66 Respiratory Rate 18 14 14 Blood Pressure 111/58 L 106/51 L Pulse Oximetry 100 100 100 05/05/18 16:46 05/05/18 20:00 05/05/18 20:39 Temperature 98.3 F Pulse Rate 77 Respiratory Rate 14 16 14 Blood Pressure 106/46 L Pulse Oximetry 100 100 99 05/05/18 23:58 05/06/18 00:00 05/06/18 03:50 Temperature 98.8 F Pulse Rate 82 Respiratory Rate 15 24 14 Blood Pressure 112/48 L Pulse Oximetry 100 100 05/06/18 04:00 05/06/18 08:00 05/06/18 09:00 Temperature 98.3 F 99.5 F Pulse Rate 74 75 82 Respiratory Rate 14 13 Blood Pressure 106/48 L 105/49 L Pulse Oximetry 100 100 05/06/18 09:29 05/06/18 09:55 Temperature Pulse Rate 79 Respiratory Rate 17 13 Blood Pressure Pulse Oximetry 100 Intake & Output 05/05/18 05/06/18 05/06/18 18:59 06:59 18:59 Intake Total 4150 / 4150 4800 / 4800 100 / 100 Output Total 445 / 445 810 / 810 Balance 3705 / 3705 3990 / 3990 100 / 100 Weight 63.1 kg Intake: IV 4150 / 4150 2600 / 2600 100 / 100 Versed Inj 50 mg In 50 ml @ 2 50 / 50 MG/HR 2 mls/hr IV.CONT TITRATE PRN Rx#:[id number] Neosynephrine Inj 40 MG In D5W 500 / 500 1000 / 1000 Inj 496 ML @ 20 MCG/MIN 15 mls/ hr IV.CONT TITRATE PRN Rx#: [id number] NS Inj 1,000 ML @ 100 mls/hr IV 1000 / 1000 1000 / 1000 .CONT .Q10H [facility] Rx#:[id number] Maxipime Inj 2,000 MG In NS Inj 100 / 100 100 / 100 100 / 100 100 ML @ 200 mls/hr IV.SIG Q8H [facility] Rx#:[id number] Diflucan 400 mg Premix Bag 200 200 / 200 ML @ 100 mls/hr IV.SIG Q24H [facility] Rx#:[id number] NS Inj 2,000 ML @ Wide Open IV. 1999 SIG BOLUS ONE Rx#:[id number] fentaNYL 10 mcg/mL Premix Drip 250 / 250 250 / 250 2,500 mcg In 250 ml @ 50 MCG/HR 5 mls/hr IV.SIG TITRATE PRN Rx #:[id number] Flagyl 500 MG Inj 100 ML @ 100 100 / 100 200 / 200 mls/hr IV.SIG Q8H [facility] Rx#: [id number] Anesthesia Amount 2200 / 2200 Output: Stool 0 / 0 Estimated Blood Loss 250 / 250 Urine Amount (Catheter) 250 / 250 Indwelling Urethral Catheter 250 / 250 Gastric Drainage 25 / 25 25 / 25 Right Nare Nasogastric Tube 25 / 25 25 / 25 Wound Drainage 170 / 170 285 / 285 # 1 Abdomen 170 / 170 170 / 170 Abdomen 115 / 115 Wound Vac Amount 250 / 250 Abdomen 250 / 250 Other: # Bowel Movements 0 0 - Routine Abdominal Exam Present: soft, tenderness, distended, wound Comments: mild erythema at lower border of wound, octavio intact, drain with dark fluid. - Urinary Catheter Management Indwelling Urethral Catheter Cath placed during this visit: yes Reason for continuing: Acute urinary retention Insertion date: 05/03/18 Assessment and Plan - Assessment (1) Intra-abdominal abscess Code(s): K65.1 - Peritoneal abscess Status: Acute Plan: 42 year old female s/p exploratory laparotomy; partial omentectomy; drainage of pelvic abscess; drainage of intra-abdominal abscess; drainage of perihepatic abscess; application of wound VAC device; lysis of adhesions; POD1 bilateral salpingo-oophorecromy (Dr. 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 Code(s): K43.1 - Incisional hernia with gangrene Status: Acute (4) Acute pancreatitis Code(s): K85.90 - Acute pancreatitis without necrosis or infection, unspecified Status: Chronic (5) Acute on chronic pancreatitis Code(s): K85.90 - Acute pancreatitis without necrosis or infection, unspecified ; K86.1 - Other chronic pancreatitis Status: Chronic (6) Abdominal pain Code(s): R10.9 - Unspecified abdominal pain Status: Chronic (7) H/O brain surgery Code(s): Z98.890 - Other specified postprocedural states Status: Chronic - Plan wean to extubate still on pressors - will hold lovenox for now follow wound, may need to be opened inferiorly? CCM following (4) Acute pancreatitis Qualifiers: Pancreatitis type: alcohol induced (6) Abdominal pain Qualifiers: Abdominal location: generalized Qualified Code(s): R10.84 - Generalized abdominal pain
--- NOTE | 2018-05-06 12:07 | P.PNID ---
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 Patient's last hospitalization was in March and at that time she presented with abdominal pain, and had pancreatitis. Her imaging studies did not show pancreatitis, pseudocyst, and an abdominal wall hernia. She she was discharged she has had on and off abdominal pain but he was not that bad, but on the day of admission she had an acute onset of severe abdominal pain. There is no mention of any fever chills or sweats. No nausea or vomiting. Imaging studies on this admission is showing incarcerated hernia and presence of intra-abdominal abscess. Surgery saw the patient, and she was taken to surgery and had exploratory laparotomy, drainage of multiple abscesses , perihepatic, and multiple intra-abdominal and pelvic abscesses. Her abdomen is currently open, and she has a wound VAC over her open abdominal incision. Patient currently is on sedation, on the respirator. She is on Dontrell-Synephrine. She is afebrile. Her white count on admission was 14,000, and it is 29,000 today. She is currently on Diflucan, Flagyl, and Levaquin. Infectious disease consultation has been requested to assist in evaluation and treatment of patient with intra-abdominal abscess. Notes reviewed D/W RN Had surgery: 1. Bilateral salpingo-oophorectomy by Dr. Catherine Escalera. 2. Abdominal washout, abdominal exploration. 3. Lysis of adhesions. 4. Removal of appendiceal stump from probable previously ruptured appendicitis. 5. Drainage of pelvic abscess with intra-abdominal drain. 6. Repair of incisional hernia with closure of abdomen. Still On pressors. Remains intubated. Opens eyes spontaneously, tracks, follows commands. On the vent Temps ok WBC up to down to 31K. Fluid C/S mixed aerobes and anaerobes BC negative so far Antibiotics: Cefepime Flagyl Vancomycin Diflucan Lines: central line Past Medical History: Traumatic brain injury (Acute) H/O Meckel's diverticulum History of exploratory laparotomy (Acute) H/O abdominal surgery (Acute) H/O brain surgery (Chronic) History of orthopedic surgery Allergies/Adverse Reactions: Allergies amoxicillin Allergy (Severe, Verified 04/05/18 19:19) Hives penicillin G Allergy (Severe, Verified 04/05/18 19:19) Hives Objective Vital Signs 05/05/18 12:16 05/05/18 16:00 05/05/18 16:46 Temperature 98.3 F Pulse Rate 66 Respiratory Rate 14 14 14 Blood Pressure 106/51 L Pulse Oximetry 100 100 100 05/05/18 20:00 05/05/18 20:39 05/05/18 23:58 Temperature 98.3 F Pulse Rate 77 Respiratory Rate 16 14 15 Blood Pressure 106/46 L Pulse Oximetry 100 99 100 05/06/18 00:00 05/06/18 03:50 05/06/18 04:00 Temperature 98.8 F 98.3 F Pulse Rate 82 74 Respiratory Rate 24 14 14 Blood Pressure 112/48 L 106/48 L Pulse Oximetry 100 100 05/06/18 08:00 05/06/18 09:00 05/06/18 09:29 Temperature 99.5 F Pulse Rate 75 82 Respiratory Rate 13 17 Blood Pressure 105/49 L Pulse Oximetry 100 100 05/06/18 09:55 Temperature Pulse Rate 79 Respiratory Rate 13 Blood Pressure Pulse Oximetry Intake & Output 05/05/18 05/06/18 05/06/18 18:59 06:59 18:59 Intake Total 4150 / 4150 4800 / 4800 100 / 100 Output Total 445 / 445 810 / 810 Balance 3705 / 3705 3990 / 3990 100 / 100 Weight 63.1 kg Intake: IV 4150 / 4150 2600 / 2600 100 / 100 Versed Inj 50 mg In 50 ml @ 2 50 / 50 MG/HR 2 mls/hr IV.CONT TITRATE PRN Rx#:[id number] Neosynephrine Inj 40 MG In D5W 500 / 500 1000 / 1000 Inj 496 ML @ 20 MCG/MIN 15 mls/ hr IV.CONT TITRATE PRN Rx#: [id number] NS Inj 1,000 ML @ 100 mls/hr IV 1000 / 1000 1000 / 1000 .CONT .Q10H [facility] Rx#:[id number] Maxipime Inj 2,000 MG In NS Inj 100 / 100 100 / 100 100 / 100 100 ML @ 200 mls/hr IV.SIG Q8H [facility] Rx#:[id number] Diflucan 400 mg Premix Bag 200 200 / 200 ML @ 100 mls/hr IV.SIG Q24H [facility] Rx#:[id number] NS Inj 2,000 ML @ Wide Open IV. 1999 SIG BOLUS ONE Rx#:[id number] fentaNYL 10 mcg/mL Premix Drip 250 / 250 250 / 250 2,500 mcg In 250 ml @ 50 MCG/HR 5 mls/hr IV.SIG TITRATE PRN Rx #:[id number] Flagyl 500 MG Inj 100 ML @ 100 100 / 100 200 / 200 mls/hr IV.SIG Q8H [facility] Rx#: [id number] Anesthesia Amount 2200 / 2200 Output: Stool 0 / 0 Estimated Blood Loss 250 / 250 Urine Amount (Catheter) 250 / 250 Indwelling Urethral Catheter 250 / 250 Gastric Drainage 25 / 25 25 / 25 Right Nare Nasogastric Tube 25 / 25 25 / 25 Wound Drainage 170 / 170 285 / 285 # 1 Abdomen 170 / 170 170 / 170 Abdomen 115 / 115 Wound Vac Amount 250 / 250 Abdomen 250 / 250 Other: # Bowel Movements 0 0 05/03/18 09:12 Blood - Peripheral Aerobic Blood Culture - Preliminary No growth in 3 days 05/03/18 09:12 Blood - Peripheral Anaerobic Blood Culture - Preliminary No growth in 3 days 05/03/18 08:58 Blood - Peripheral Aerobic Blood Culture - Preliminary No growth in 3 days 05/03/18 08:58 Blood - Peripheral Anaerobic Blood Culture - Preliminary No growth in 3 days 05/02/18 23:50 Abscess - Abdominal Gram Stain - Final 05/02/18 23:50 Abscess - Abdominal Wound Culture - Final 05/02/18 23:50 Abscess - Abdominal Fungal Smear - Final No fungal elements seen 05/02/18 23:50 Abscess - Abdominal Fungal Culture - Pending 05/02/18 23:50 Abscess - Abdominal Acid Fast Bacilli Smear - Final No acid fast bacilli seen 05/02/18 23:50 Abscess - Abdominal Mycobacterial Culture - Pending 05/02/18 16:50 Clean Catch Urine Urine Culture - Final 50-100,000 cfu/mL mixed mahad (probable contaminants ) Lab - Hematology Results 05/04/18 05/04/18 05/05/18 15:35 20:40 05:00 WBC 24.6 H 40.2 H D RBC 3.58 L 3.61 L Hgb 10.5 L D 10.1 L 10.6 L Hct 31.6 L 31.9 L MCV 88.5 D 88.4 MCH 29.5 29.3 MCHC 33.3 33.1 RDW 15.5 16.3 Plt Count 331 359 MPV 9.0 9.2 Prelim Diff (Auto) Slide review pending Neut % (Auto) 86.1 H Lymph % (Auto) 7.8 L [place] % (Auto) 5.7 Eos % (Auto) 0.1 Baso % (Auto) 0.3 Neut # (Auto) 21.2 H Lymph # (Auto) 1.9 [place] # (Auto) 1.4 H Eos # (Auto) 0.0 Baso # (Auto) 0.1 WBC Differential Manual diff final Seg Neuts % (Manual) 90 H Band Neuts % (Manual) 3 Lymphocytes % (Manual) 2 L Monocytes % (Manual) 3 Eosinophils % (Manual) Metamyelocytes % (Man) 2 H Myelocytes % (Man) Abs Neuts (Manual) 23.4 H Differential Comment . Toxic Granulation 1+ H Dohle Bodies Present H Platelet Estimate Normal Platelet Morphology Normal RBC Morphology 05/06/18 05:42 WBC 31.6 H RBC 2.71 L Hgb 8.0 L D Hct 24.1 L MCV 89.1 MCH 29.5 MCHC 33.1 RDW 15.8 Plt Count 266 MPV 8.5 Prelim Diff (Auto) Slide review pending Neut % (Auto) 87.9 H Lymph % (Auto) 6.3 L [place] % (Auto) 3.8 Eos % (Auto) 0.7 Baso % (Auto) 1.3 Neut # (Auto) 27.8 H Lymph # (Auto) 2.0 [place] # (Auto) 1.2 H Eos # (Auto) 0.2 Baso # (Auto) 0.4 H WBC Differential Manual diff final Seg Neuts % (Manual) 93 H Band Neuts % (Manual) Lymphocytes % (Manual) 2 L Monocytes % (Manual) 2 Eosinophils % (Manual) 1 Metamyelocytes % (Man) 1 Myelocytes % (Man) 1 H Abs Neuts (Manual) 30.0 H Differential Comment . Toxic Granulation Dohle Bodies Platelet Estimate Normal Platelet Morphology Normal RBC Morphology Normal Lab - Chemistry Results 05/04/18 05/05/18 05/06/18 20:40 05:00 05:42 Sodium 141 141 Potassium 3.7 4.0 3.1 L D Chloride 111 H 114 H Carbon Dioxide 18.8 L 16.4 L Anion Gap 11 11 BUN 16 18 Creatinine 0.62 0.43 L Estimated GFR Greater than 89 Greater than 89 Random Glucose 124 H 109 H Calcium 7.0 L* 6.9 L* 6.6 L* Prot Corrected Calcium 8.7 8.6 8.4 L Magnesium 1.9 Total Bilirubin 0.3 AST 31 ALT 10 Alkaline Phosphatase 75 Total Protein 4.1 L 4.1 L 3.8 L Albumin 1.0 L Lipase 4383 H Imaging: ITS Impressions Abdomen/Pelvis CT 05/02/18 15:10 CONCLUSION: 1. Anterior abdominal wall hernia containing a loop of small bowel with air and apparent surrounding inflammatory change. There is an abnormal bowel gas pattern and this is of concern for acute obstruction with possible strangulation. 2. New large cystic structure in the pelvis with air-fluid levels as well as additional cystic collections with air-fluid levels with represent additional phlegmon or abscesses. 3. Acute pancreatitis again noted with enlarged head of the pancreas with multiple calcifications and indistinctness. There are new cystic structures within the pancreas. There are multiple calcifications again noted. Pancreatic duct remains dilated. 4. Cirrhotic appearing liver with surrounding ascites. 5. Tiny gallstone again noted. Chest X-Ray 05/05/18 06:00 CONCLUSION: ET tube in a low position 1.1 cm from the arti. Physical Exam: GENERAL: on sedation, on the vent, awakens when stimulated. She is not in respiratory distress. SKIN: Cool and dry. No generalized rash, no ecchymoses and no evidence of embolic lesions. HEAD: Atraumatic. Normocephalic. No temporal wasting, or tenderness. EYES: [place] conjunctiva. No petechia or hemorrhage. Pupils equal, round and reactive to light. No scleral icterus. No injection or drainage. EARS, NOSE AND THROAT: Nose without bleeding or purulent nasal discharge, has NGT in place. She is orally intubated.. NECK: Trachea midline. Supple and not tender, no meningeal signs CARDIOVASCULAR: Regular rate and rhythm. No murmurs, rubs or gallops heard RESPIRATORY: Coarse breath sounds bilaterally. No rales, wheezing or rhonchi ABDOMEN: Mildly distended, has midline incision with dry dressing but erythema at lower end. One IAL in LLQ with sanguineous fluid. Tender on palpation. Bowel sounds are hypoactive. EXTREMITIES: No clubbing, cyanosis, or edema. Well perfused and warm. NEUROLOGICAL: Sedated PSYCHIATRIC: Unable to assess LINE: No evidence of infection Assessment and Plan - Plan Impression Sepsis with shock due to intraabdominal process Multiple intraabdominal and pelvic abscess, S/P lap and drainage of abscess - S/P reexploration and closure Respiratory failure Leukocytosis due to above, worse Recommendation Continue IV Vanco erythema at surgical site continue for now. Target trough 10- 15 unless bacteremia. Continue Cefepime IV Continue Flagyl IV for anaerobes. Continue Diflucan GI yeast coverage. Follow C/S and adjust Abx Monitor progress closely Follow CBC D/W RN Dr Aguilar to resume care on Tuesday05/06/2018. If any changes in the interim or positive cultures please call sooner.
--- NOTE | 2018-05-06 12:14 | P.PNCC ---
Subjective Subjective Remarks/Hospital Course: 42 year old female admitted for an evaluation of abdominal pain. The abdominal pain has acutely worsened today. Her pain pain has been present intermittently for about 2 weeks but it was not as severe in nature. She has been into the hospital previously and was told she has an abdominal ventral hernia. At that time there was no acute concerns or evidence of strangulation/incarceration. The CAT scan obtained in the emergency department showed large cystic structure in the pelvis with air-fluid levels as well as additional cystic collections with air-fluid levels which represent additional phlegmon or abscesses. She was taken emergently to operating room by Dr. Smith with finding of a fair amount of old blood that was in the abdomen and then down the pelvis as well as a fairly sizable abscess. She has had an abscess around the liver, which was evacuated and irrigated. A portion of the omentum was removed because it was partially necrotic. A second abscess was identified in a portion of the pouch of [place], which was evacuated, cultured as well. The abdomen was packed down the pelvis with two pads and then placed the VAC ABThera temporary closure device as the patient is planned to be broad back to operating room after stabilization in the intensive care unit. SUBJ 05/04: Remains intubated sedated remains critical. Currently on Dontrell- Synephrine to maintain map above 65. Hemoglobin came back at 6.2 ordered to receive 2 units of PRBC. White count is 28,000. Plan for OR 4 PM today. 05/05: Remains intubated and mechanically ventilated. Requiring vasopressor therapy with Dontrell-Synephrine to maintain suitable mean arterial pressure. White count markedly elevated. Abdominal closure yesterday. 05/06: Still requiring vasopressor support to maintain suitable blood pressure. Gas exchange has improved and we will start spontaneous breathing trials again today. White count declining. Renal function acceptable after an additional 3 L of saline were required yesterday. Objective Vital Signs / I&O: Vital Signs 05/05/18 12:16 05/05/18 16:00 05/05/18 16:46 Temperature 98.3 F Pulse Rate 66 Respiratory Rate 14 14 14 Blood Pressure 106/51 L Pulse Oximetry 100 100 100 05/05/18 20:00 05/05/18 20:39 05/05/18 23:58 Temperature 98.3 F Pulse Rate 77 Respiratory Rate 16 14 15 Blood Pressure 106/46 L Pulse Oximetry 100 99 100 05/06/18 00:00 05/06/18 03:50 05/06/18 04:00 Temperature 98.8 F 98.3 F Pulse Rate 82 74 Respiratory Rate 24 14 14 Blood Pressure 112/48 L 106/48 L Pulse Oximetry 100 100 05/06/18 08:00 05/06/18 09:00 05/06/18 09:29 Temperature 99.5 F Pulse Rate 75 82 Respiratory Rate 13 17 Blood Pressure 105/49 L Pulse Oximetry 100 100 05/06/18 09:55 Temperature Pulse Rate 79 Respiratory Rate 13 Blood Pressure Pulse Oximetry Intake & Output 05/05/18 05/06/18 05/06/18 18:59 06:59 18:59 Intake Total 4150 / 4150 4800 / 4800 100 / 100 Output Total 445 / 445 810 / 810 Balance 3705 / 3705 3990 / 3990 100 / 100 Weight 63.1 kg Intake: IV 4150 / 4150 2600 / 2600 100 / 100 Versed Inj 50 mg In 50 ml @ 2 50 / 50 MG/HR 2 mls/hr IV.CONT TITRATE PRN Rx#:[id number] Neosynephrine Inj 40 MG In D5W 500 / 500 1000 / 1000 Inj 496 ML @ 20 MCG/MIN 15 mls/ hr IV.CONT TITRATE PRN Rx#: [id number] NS Inj 1,000 ML @ 100 mls/hr IV 1000 / 1000 1000 / 1000 .CONT .Q10H [facility] Rx#:[id number] Maxipime Inj 2,000 MG In NS Inj 100 / 100 100 / 100 100 / 100 100 ML @ 200 mls/hr IV.SIG Q8H [facility] Rx#:[id number] Diflucan 400 mg Premix Bag 200 200 / 200 ML @ 100 mls/hr IV.SIG Q24H [facility] Rx#:[id number] NS Inj 2,000 ML @ Wide Open IV. 1999 SIG BOLUS ONE Rx#:[id number] fentaNYL 10 mcg/mL Premix Drip 250 / 250 250 / 250 2,500 mcg In 250 ml @ 50 MCG/HR 5 mls/hr IV.SIG TITRATE PRN Rx #:[id number] Flagyl 500 MG Inj 100 ML @ 100 100 / 100 200 / 200 mls/hr IV.SIG Q8H [facility] Rx#: [id number] Anesthesia Amount 2200 / 2200 Output: Stool 0 / 0 Estimated Blood Loss 250 / 250 Urine Amount (Catheter) 250 / 250 Indwelling Urethral Catheter 250 / 250 Gastric Drainage 25 / 25 25 / 25 Right Nare Nasogastric Tube 25 / 25 25 / 25 Wound Drainage 170 / 170 285 / 285 # 1 Abdomen 170 / 170 170 / 170 Abdomen 115 / 115 Wound Vac Amount 250 / 250 Abdomen 250 / 250 Other: # Bowel Movements 0 0 Result Diagrams: 05/06/18 05:42 05/06/18 05:42 Objective Remarks: GENERAL: 42 y/o woman, lightly sedated on vent but wakes up easily. SKIN: No generalized rash, no ecchymoses HEAD: Atraumatic. Normocephalic. EYES: Pupils equal, round and reactive to light. No scleral icterus. No injection or drainage. ENT: NGT in place. Orotracheally intubated NECK: Trachea midline. Supple CARDIOVASCULAR: Regular rate and rhythm. No murmurs, rubs or gallops heard. On 70 mics of Dontrell-Synephrine to maintain map >65 RESPIRATORY: Coarse breath sounds bilaterally. Breath sounds equal bilaterally. No rales, wheezing or rhonchi ABDOMEN: Closed abdomen. [place] drains draining dark fluid. EXTREMITIES: No clubbing, cyanosis. Extremities well perfused, trace edema NEUROLOGICAL: Currently sedated with propofol and fentanyl. She wakes up easily follows commands x4. No focal deficits Assessment and Plan - Assessment and Plan Plan: Respiratory failure -Post operative and secondary to severe sepsis -Patient's plans to return to operating room today -Continue mechanical ventilation -SBT daily when hemodynamically stable, and abdomen is closed -Vent bundle. DuoNeb's as needed -Start spontaneous breathing trials again today Incarcerated strangulated Ventral hernia Abdominal abscesses -Status post exploratory laparotomy and washout -Follow-up cultures, negative to date -Empiric antibiotics and antifungal (IV Vanco, IV cefepime, IV Flagyl, IV Diflucan) -ID consultation-Dr. Aguilar -Further management per general surgery -Pain controlled with fentanyl infusion and as needed IV push Septic shock -Aggressive IV fluid hydration -Dontrell-Synephrine as needed to keep map above 65 -Antibiotics as above -Probable pelvic inflammatory disease Anemia requiring transfusion -Hemoglobin 6.2, stat 2 units PRBC ordered. DVT GI prophylaxis -Teds SCDs -Pharmacological DVT prophylaxis per surgeon -Pepcid Overall impression: This woman remains critically ill and ventilator dependent following drainage of gram-negative intra-abdominal abscesses. The abdomen was closed 05/04 and the patient remains septic, requiring vasopressor support with Dontrell-Synephrine. She is at high risk for subsequent intra-abdominal infections. Critical care time 45 minutes aside from procedures.
--- NOTE | 2018-05-06 13:00 | P.CONOB ---
History of Present Illness - Data of Consult Patient: new to practice Consult date: 05/03/18 (late entry ) Requesting Physician: MD Douglas Dowling Primary Care Provider: UNKNOWN - Consult Narrative Reason for consult: pelvic inflammatory disease Narrative: Shant Oh is a 42 year old female admitted 05/02/2018 and taken for surgery the same day for what was felt to be an incarcerated abdominal hernia. Dr. Smith encountered severe inflammation with abdominal, pito-hepatic and pelvic abscesses along with incarcerated small bowel. He removed the omentum, dissected open the pelvic and abdominal abscesses and applied a VAC device, planning to return after the patient has begun to respond to antibiotics and stabilizes. He consulted me to evaluate need for pelvic surgery on re- operation. The operative notes and imaging, labs, and pertinent history was reviewed. The patient was interviewed while intubated. She was in some emotional distress but appropriate and was able to hand write responses and questions. The patient is and lives with significant other Rebel Agustin. She has been ill with chronic pancreatitis and alcoholism, but denies any exposure to STIs. Regardless of the original source of the patient's intra-abdominal infection, images even before the first surgery showed involvement of both adnexa with a large pelvic abscess. Once there is a tubo-ovarian abscess, the infection will not clear reliably without removal of those organs. I explained this to the patient and she gave me verbal, handwritten permission to re-operate with Dr. Smith with the intention of bilateral salpingo-oophorectomy. I also called and spoke to Rebel Agustin, her significant other, to explain the situation. The expected menopausal symptoms are discussed, and I asked him to encourage her to follow up with me after she is released from the hospital. My business card was put on her chart and given too the patient. The case was also discussed with Dr. Smith, and he agreed to allow me to operate with him the following day. FOR[facility]LY [facility], [facility] - History History Provided By: Patient - Medical / Surgical Hx Neg / Unobtainable Medical Problems Denied: Unable to Obtain - Medical History Medical History: Medical History (Last Reviewed 05/03/18 @ 09:43 by Estefania Aguilar MD) Traumatic brain injury (Acute) H/O Meckel's diverticulum - Surgical History Surgical History: Surgical History (Last Reviewed 05/03/18 @ 09:43 by Estefania Aguilar MD) History of exploratory laparotomy (Acute) H/O abdominal surgery (Acute) H/O brain surgery (Chronic) History of orthopedic surgery - Family History Family History: Family History (Last Updated 05/02/18 @ 21:23 by Jann Stevenson MD) Other Osteoarthritis - Tobacco History Second Hand Smoke Exposure: No Tobacco Use In Past 30 Days: Yes Smoking Status: Current every day smoker Tobacco Type: Cigarettes - Alcohol History How Often Do You Have a Drink Containing Alcohol: 2 to 4 times a month - Substance Use History Substance History: Past History - Immunization History Tetanus Immunization: Unsure Hx Influenza Vaccine This Season: No Medications and Allergies Active Medications: Active Medications Albuterol (Duoneb Neb (Prn)) 1 ampul NEB Q2HR NEB PRN PRN Reason: SHORTNESS OF BREATH Last Admin: 05/06/18 09:54 Dose: 1 ampul Chlorhexidine Gluconate (Peridex 0.12% Oral Kit) 15 ml OROPHARYNG BID@0800, 2000 [facility] Last Admin: 05/06/18 08:33 Dose: 15 ml Famotidine (Pepcid Pf Inj) 20 mg IV.PUSH Q12HR [facility] Last Admin: 05/06/18 08:33 Dose: 20 mg Hydromorphone HCl (Dilaudid Pf Inj) 1 mg IV.PUSH Q4H PRN PRN Reason: Pain 7 to 10 Last Admin: 05/02/18 21:13 Dose: 1 mg Hydromorphone HCl (Dilaudid Pf Inj) 0.5 mg IV.PUSH Q4H PRN PRN Reason: PAIN 3 TO 6 Sodium Chloride (Ns Inj) 1,000 mls @ 100 mls/hr IV.CONT .Q10H [facility] Last Admin: 05/06/18 04:02 Dose: 100 mls/hr Metronidazole/Sodium Chloride (Flagyl 500 Mg Inj) 100 mls @ 100 mls/hr IV.SIG Q8H [facility] Last Admin: 05/06/18 12:26 Dose: 100 mls/hr Propofol (Diprivan 1000 Mg/100 Ml Inj) 1,000 mg in 100 mls @ 1.752 mls/hr IV.CONT TITRATE PRN; Protocol PRN Reason: Per Protocol Last Titration: 05/04/18 09:16 Dose: Infused Phenylephrine HCl 40 mg/ (Dextrose) 500 mls @ 15 mls/hr IV.CONT TITRATE PRN; Protocol PRN Reason: Per Protocol Last Admin: 05/06/18 08:00 Dose: 80 mcg/min, 60 mls/hr Fentanyl (Fentanyl 10 Mcg/Ml Premix Drip) 2,500 mcg in 250 mls @ 5 mls/hr IV.SIG TITRATE PRN; Protocol PRN Reason: Per Protocol Last Admin: 05/06/18 00:34 Dose: 150 mcg/hr, 15 mls/hr Fluconazole (Diflucan 400 Mg Premix Bag) 200 mls @ 100 mls/hr IV.SIG Q24H [facility] Last Admin: 05/06/18 07:00 Dose: 100 mls/hr Vancomycin HCl 1,500 mg/ (Sodium Chloride) 515 mls @ 250 mls/hr IV.SIG Q12H [facility] Last Admin: 05/05/18 03:02 Dose: Not Given Cefepime HCl 2,000 mg/ Sodium (Chloride) 100 mls @ 200 mls/hr IV.SIG Q8H [facility] Last Admin: 05/06/18 12:26 Dose: 200 mls/hr Pharmacy Profile Note (Vancomycin Consult Pharmacy) 0 mls @ 0 mls/hr OTHER UNSCH [facility] Midazolam HCl (Versed Inj) 50 mg in 50 mls @ 2 mls/hr IV.CONT TITRATE PRN; Protocol PRN Reason: Per Protocol Last Admin: 05/06/18 01:57 Dose: 2 mg/hr, 2 mls/hr Magnesium Sulfate Inj 4 gm/ (Sodium Chloride) 100 mls @ 50 mls/hr IV.SIG UNSCH PRN PRN Reason: For Magnesium 0.9 - 1.1 mg/dL Magnesium Sulfate Inj 2 gm/ (Sodium Chloride) 100 mls @ 50 mls/hr IV.SIG UNSCH PRN PRN Reason: For Magnesium 1.2 - 1.6 mg/dL Potassium Chloride (Kcl 40 Meq Premix Inj) 40 meq in 100 mls @ 25 mls/hr IV.SIG Q2H PRN PRN Reason: For Potassium 2.8 - 3.2 mEq/L Last Admin: 05/06/18 08:34 Dose: 25 mls/hr Potassium Chloride (Kcl 20 Meq Premix Inj) 20 meq in 100 mls @ 50 mls/hr IV.SIG Q2H PRN PRN Reason: For Potassium 3.3 - 3.5 mEq/L Potassium Chloride (Kcl 40 Meq Premix Inj) 40 meq in 100 mls @ 25 mls/hr IV.SIG UNSCH PRN PRN Reason: For Potassium 3.3 - 3.5 mEq/L Last Infusion: 05/04/18 15:46 Dose: Infused Potassium Phosphate 30 mmol/ (Sodium Chloride) 260 mls @ 42 mls/hr IV.SIG UNSCH PRN PRN Reason: SEE LABEL COMMENTS Sodium Phosphate 30 mmol/ (Sodium Chloride) 260 mls @ 42 mls/hr IV.SIG UNSCH PRN PRN Reason: For Phosphorus < 2.5 mg/dL Potassium Chloride (Kcl 20 Meq Premix Inj) 20 meq in 100 mls @ 50 mls/hr IV.SIG Q2H PRN PRN Reason: For Potassium 2.8 - 3.2 mEq/L Dopamine HCl/Dextrose (Dopamine 800 Mg/500 Ml Premix) 800 mg in 500 mls @ 6.761 mls/hr IV.CONT TITRATE PRN; Protocol PRN Reason: Per Protocol Magnesium Oxide (Mag-Ox) 800 mg PO UNSCH PRN PRN Reason: For Magnesium 1.2 - 1.6 mg/dL Ondansetron HCl (Zofran Inj) 4 mg IV.PUSH Q6H PRN PRN Reason: NAUSEA OR VOMITING Potassium Bicarb/Potassium Chloride (K-Lyte Cl Eff) 50 meq PO UNSCH PRN PRN Reason: For Potassium 3.3 - 3.5 mEq/L Potassium Phosphate (K-Phos Original) 2,000 mg PO Q4H PRN PRN Reason: Phosphorus Less Than 2.5 mg/dL Potassium Phosphate (K-Phos Original) 2,000 mg PO UNSCH PRN PRN Reason: SEE LABEL COMMENTS Sodium Chloride (Ns Flush) 2 ml IV.FLUSH PRN PRN PRN Reason: FLUSH AFTER USING IV ACCESS Last Admin: 05/05/18 08:33 Dose: 2 ml Terbutaline Sulfate (Brethine Inj) 1 mg SQ UNSCH PRN PRN Reason: For Extravasation Allergies Allergy/AdvReac Type Severity Reaction Status Date / Time amoxicillin Allergy Severe Hives Verified 04/05/18 19:19 penicillin G Allergy Severe Hives Verified 04/05/18 19:19 Physical Exam Vital signs: Temp Pulse Resp BP Pulse Ox 99.5 F 79 15 105/49 L 98 05/06/18 08:00 05/06/18 09:55 05/06/18 12:18 05/06/18 08:00 05/06/18 12:18 Results - Labs CBC & Chem 7: 05/17/18 05:10 05/17/18 05:10 Labs: Short CBC 05/06/18 Range/Units 05:42 WBC 31.6 H (4.0-11.0) th/mm3 Hgb 8.0 L D (11.6-15.3) gm/dL Hct 24.1 L (35.0-46.0) % Plt Count 266 (150-450) th/mm3 BMP 05/06/18 05:42 Sodium 141 Potassium 3.1 L D Chloride 114 H Carbon Dioxide 16.4 L BUN 18 Creatinine 0.43 L Calcium 6.6 L*
--- NOTE | 2018-05-06 13:50 | MP ---
cc: Catherine Escalera MD DATE OF OPERATION: 05/04/2018 PREOPERATIVE DIAGNOSIS: Intra-abdominal and pelvic abscess from probable pelvic inflammatory disease. POSTOPERATIVE DIAGNOSIS: Pelvic abscess, abdominal abscess, incisional hernias, open abdomen. PROCEDURE: Pelvic examination under anesthesia, bilateral salpingo-oophorectomy, adhesiolysis of the pelvis and abdomen. INDICATIONS FOR PROCEDURE: Dr. Smith consulted me on this patient on 05/03/2018. The patient had undergone a laparotomy with intra-abdominal abscesses without obvious source as well as extending into the pelvis and pelvic abscesses. The patient's wound had been left open with a wound VAC, and Dr. Smith asked me to consult on the case. After reviewing operative findings and imaging, it became evident that the patient has primary or secondary pelvic inflammatory disease which is acute with probable abscess of the tubes and ovaries. I explained to the patient, as well as Dr. Smith that bilateral salpingo-oophorectomy is indicated because she may fail to clear her infection and her sepsis otherwise. Once the tubes and ovaries become involved in the abscess, they usually require removal or become the source of chronic pain and future surgeries. The patient was disappointed to hear this but did agree and showed understanding. The patient was intubated at the time, and we passed information by her writing notes to me. FINDINGS: On pelvic examination under anesthesia, the patient had a light brownish discharge. The pelvis was without mobility of the pelvic organs, and pelvic exam was uninformative except for the fixation of the pelvic organs. Uterus was palpated to be small. Intra-abdominal findings: After removing the wound VAC and entering the abdomen and pelvis, exploration showed the site of previous perihepatic abscess and abscess in the right abdominal and pelvic trough with the tubes and ovaries on both sides adherent to the pelvic sidewall and immobile from the cul-de-sac without dissection. There was dark bloody fluid and acute formation of adhesions. There was general edema and friability of the tissues involved. PROCEDURE: I was present with Dr. Smith and assisted in opening the abdominal wall with removal of the wound VAC and exploration with placement of a [place] retractor and packing away the bowel from the areas of the abscesses. The bilateral salpingo-oophorectomy was done first as an intra-abdominal procedure with Dr. Beckwith having already placed the ureteral stents. The uterus was confirmed to be small. The left side of the pelvis with the sigmoid colon had been partially dissected. The tubes and ovaries were firmly fixed in the pelvis. After the bowel was packed away, blunt and sharp dissection was necessary to lift both adnexa from the cul-de-sac. The infundibulopelvic ligament on the left was identified. The edematous peritoneum was perforated with a clamp so that the infundibulopelvic ligament could be doubly clamped. This was then free-tied and suture ligated with 0 Vicryl. The uteroovarian ligament was identified and isolated in similar fashion, and the tube and ovary on the left were then removed from the field. The same general procedure was carried out on the right, although the right had more bleeding from friable tissues. The stents were palpable during and after removal of the adnexa. There was evidence of the abscess of the pelvis extending down into the rectovaginal space, and after Dr. Smith completed his portions of the case including removal of the appendiceal stump, we placed a drain into the rectovaginal space with redundancy in the cul-de-sac, and it was brought out through the abdominal wall. Because the patient's edema and sepsis had improved overnight, we were able to close the abdominal wall. Please see Dr. Smith's dictation for that portion of the procedure. MD PEDRO Honeycutt/siobhan , 12:35 PM , 12:47 PM
[2018-05-06] MEDS: Vancomycin Inj 1,250 MG in Sodium Chlor 0.9% Inj 250 ML IV.SIG SCH (14:07)
[2018-05-07] MEDS: Oral Hygiene Kit OROPHARYNG SCH ×5 (01:24→23:26)
[2018-05-07] MEDS: Vancomycin Inj 1,250 MG in Sodium Chlor 0.9% Inj 250 ML IV.SIG SCH ×2 (02:10→15:23)
[2018-05-07] MEDS: Phenylephrine Inj 40 MG in Dextrose 5% in Water Inj 496 ML IV.CONT PRN ×6 (04:22→17:55)
[2018-05-07 05:23] LABS: Baso # (Auto) 0.1 th/mm3 (0.0-0.2); Baso % (Auto) 0.4 % (0.0-2.0); Eos # (Auto) 0.2 th/mm3 (0.0-0.4); Eos % (Auto) 0.7 % (0.0-4.0); Hematocrit 22.5 % (35.0-46.0); Hemoglobin 7.4 gm/dL (11.6-15.3); Lymph % (Auto) 6.3 % (9.0-44.0); Mean Corpuscular HGB Conc 32.8 % (32.0-36.0); Mean Corpuscular Hemoglobin 29.7 pg (27.0-34.0); Mean Corpuscular Volume 90.6 fL (80.0-100.0); Mean Platelet Volume 8.4 fL (7.0-11.0); Mono # (Auto) 1.4 th/mm3 (0.0-0.9); Mono % (Auto) 4.6 % (0.0-8.0); Neut # (Auto) 27.9 th/mm3 (1.8-7.7); Platelet Count 258 th/mm3 (150-450); Red Blood Count 2.49 mil/mm3 (4.00-5.30); Red Cell Distribution Width 15.4 % (11.6-17.2); White Blood Count 31.7 th/mm3 (4.0-11.0)
--- NOTE | 2018-05-07 05:43 | XR ---
EXAM DATE: 05/07/2018 5:27 AM EDT AGE/SEX: 42 years / Female INDICATIONS: Shortness of breath. CLINICAL DATA: This is the patient's subsequent encounter. Patient reports that signs and symptoms h ave been present for 4 - 6 days and indicates a pain score of Nonresponsive. MEDICAL/SURGICAL HISTORY: Pancreatitis. None. COMPARISON: [facility], CHEST 1V SINGLE AP, 05/05/2018. . FINDINGS: The NG tube and left subclavian line are well placed. The heart size is normal. There is diffuse mixe d interstitial and alveolar consolidation seen. This appears new. CONCLUSION: New diffuse consolidation likely representing diffuse edema or diffuse inflammatory change. Electronically signed by: Scotty Aguilar MD 05/07/2018 5:42 AM EDT
[2018-05-07 05:52] LABS: Anion Gap 10 meq/L (5-15); Blood Urea Nitrogen 13 mg/dL (7-18); Calcium 6.8 mg/dL (8.5-10.1); Carbon Dioxide 16.2 meq/L (21.0-32.0); Chloride 116 meq/L (98-107); Glomerular Filtration Rate Greater Than 89 mL/min (>89); Glucose,Random 95 mg/dL (74-106); Lipase 2938 U/L (73-393); Potassium 3.7 meq/L (3.5-5.1); Sodium 142 meq/L (136-145)
[2018-05-07 06:06] LABS: Total Protein 4.1 g/dL (6.4-8.2)
[2018-05-07] MEDS: Sod Chloride 0.9% Inj 1,000 ML IV.CONT SCH (06:29)
[2018-05-07 08:48] LABS: Eosinophils 2 % (0-4); Metamyelocytes 1 % (0-1); Monocytes 2 % (0-8)
[2018-05-07 08:49] LABS: Platelet Estimate Normal (Normal); Platelet Morphology Normal (Normal)
[2018-05-07] MEDS: Famotidine PF Inj 20 MG/2 ML Vial IV.PUSH SCH ×2 (10:10→20:50)
[2018-05-07] MEDS: Chlorhexidine 0.12% Oral Kit 15 ML UDC OROPHARYNG SCH ×2 (10:10→19:55)
--- NOTE | 2018-05-07 10:35 | P.PNCC ---
Subjective Subjective Remarks/Hospital Course: 42 year old female admitted for an evaluation of abdominal pain. The abdominal pain has acutely worsened today. Her pain pain has been present intermittently for about 2 weeks but it was not as severe in nature. She has been into the hospital previously and was told she has an abdominal ventral hernia. At that time there was no acute concerns or evidence of strangulation/incarceration. The CAT scan obtained in the emergency department showed large cystic structure in the pelvis with air-fluid levels as well as additional cystic collections with air-fluid levels which represent additional phlegmon or abscesses. She was taken emergently to operating room by Dr. Smith with finding of a fair amount of old blood that was in the abdomen and then down the pelvis as well as a fairly sizable abscess. She has had an abscess around the liver, which was evacuated and irrigated. A portion of the omentum was removed because it was partially necrotic. A second abscess was identified in a portion of the pouch of Casey, which was evacuated, cultured as well. The abdomen was packed down the pelvis with two pads and then placed the VAC ABThera temporary closure device as the patient is planned to be broad back to operating room after stabilization in the intensive care unit. SUBJ 05/04: Remains intubated sedated remains critical. Currently on Dontrell- Synephrine to maintain map above 65. Hemoglobin came back at 6.2 ordered to receive 2 units of PRBC. White count is 28,000. Plan for OR 4 PM today. 05/05: Remains intubated and mechanically ventilated. Requiring vasopressor therapy with Dontrell-Synephrine to maintain suitable mean arterial pressure. White count markedly elevated. Abdominal closure yesterday. 05/06: Still requiring vasopressor support to maintain suitable blood pressure. Gas exchange has improved and we will start spontaneous breathing trials again today. White count declining. Renal function acceptable after an additional 3 L of saline were required yesterday. 05/07: During her period of florid sepsis she required considerable intravenous fluid in order to preserve renal function. It is now time to remove some of that fluid and she responded well to diuretics. Persistent leukocytosis is worrisome but overall she appears to be improving. Update 1200 hours: The patient's clinical condition has deteriorated over the past 6 hours, manifesting largely as respiratory distress and hypoxemia. It is tempting to attribute this largely to fluid overload following her extensive resuscitation but the declining bicarb level may well indicate worsening sepsis. Objective Vital Signs / I&O: Vital Signs 05/06/18 12:00 05/06/18 12:18 05/06/18 16:00 Temperature 99.1 F 99.4 F Pulse Rate 86 91 H Respiratory Rate 13 15 16 Blood Pressure 98/47 L 104/58 L Pulse Oximetry 98 98 99 05/06/18 20:00 05/07/18 00:00 05/07/18 04:00 Temperature 98.2 F 98.2 F 98.2 F Pulse Rate 90 108 H 106 H Respiratory Rate 14 28 H Blood Pressure 108/58 L 106/50 L 107/50 L Pulse Oximetry 05/07/18 04:50 05/07/18 10:05 Temperature Pulse Rate 105 H Respiratory Rate 24 Blood Pressure Pulse Oximetry 93 L Intake & Output 05/06/18 05/07/18 05/07/18 18:59 06:59 18:59 Intake Total 2472.5 / 2472.5 4112.5 / 4112.5 700 / 700 Output Total 680 / 680 745 / 745 Balance 1792.5 / 1792.5 3367.5 / 3367.5 700 / 700 Weight 63.1 kg Intake: IV 2472.5 / 2472.5 1912.5 / 1912.5 700 / 700 Versed Inj 50 mg In 50 ml @ 2 10 / 10 MG/HR 2 mls/hr IV.CONT TITRATE PRN Rx#:[id number] Neosynephrine Inj 40 MG In D5W 500 / 500 0 / 0 500 / 500 Inj 496 ML @ 20 MCG/MIN 15 mls/ hr IV.CONT TITRATE PRN Rx#: [id number] NS Inj 1,000 ML @ 100 mls/hr IV 1000 / 1000 1000 / 1000 .CONT .Q10H [facility] Rx#:[id number] Maxipime Inj 2,000 MG In NS Inj 200 / 200 200 / 200 100 ML @ 200 mls/hr IV.SIG Q8H [facility] Rx#:[id number] Diflucan 400 mg Premix Bag 200 200 / 200 200 / 200 ML @ 100 mls/hr IV.SIG Q24H [facility] Rx#:[id number] KCl 40 mEq Premix Inj 40 meq In 200 / 200 100 ml @ 25 mls/hr IV.SIG Q2H PRN Rx#:[id number] Vancomycin Inj 1,250 MG In NS 262.5 / 262.5 262.5 / 262.5 Inj 250 ML @ 250 mls/hr IV.SIG Q12H [facility] Rx#:[id number] fentaNYL 10 mcg/mL Premix Drip 250 / 250 2,500 mcg In 250 ml @ 50 MCG/HR 5 mls/hr IV.SIG TITRATE PRN Rx #:[id number] Flagyl 500 MG Inj 100 ML @ 100 100 / 100 200 / 200 mls/hr IV.SIG Q8H [facility] Rx#: [id number] Anesthesia Amount 2200 / 2200 Output: Stool 0 / 0 Estimated Blood Loss 250 / 250 Urine Amount (Catheter) 550 / 550 Indwelling Urethral Catheter 550 / 550 Gastric Drainage 50 / 50 50 / 50 Right Nare Nasogastric Tube 50 / 50 50 / 50 Wound Drainage 80 / 80 195 / 195 # 1 Abdomen 80 / 80 80 / 80 Abdomen 115 / 115 Wound Vac Amount 250 / 250 Abdomen 250 / 250 Other: # Bowel Movements 0 0 Result Diagrams: 05/07/18 05:00 05/07/18 05:00 Objective Remarks: GENERAL: 42 y/o woman, breathing comfortably. SKIN: No generalized rash, no ecchymoses HEAD: Atraumatic. Normocephalic. EYES: Pupils equal, round and reactive to light. No scleral icterus. No injection or drainage. ENT: NGT in place. Airway widely patent no obstructive noises. NECK: Trachea midline. Supple CARDIOVASCULAR: Regular rate and rhythm. No murmurs, rubs or gallops heard. On 50 mics of Dontrell-Synephrine to maintain map >65 RESPIRATORY: Coarse breath sounds bilaterally. Breath sounds equal bilaterally. Scattered rhonchi. ABDOMEN: Closed abdomen. Cristobal-Timmons drains draining serous fluid. EXTREMITIES: No clubbing, cyanosis. Extremities well perfused, considerable edema NEUROLOGICAL: Sleeping. She wakes up easily follows commands x4. No focal deficits. Protects airway well. Assessment and Plan - Assessment and Plan Plan: Respiratory failure -Post operative and secondary to severe sepsis -Patient's plans to return to operating room today -Continue mechanical ventilation -SBT daily when hemodynamically stable, and abdomen is closed -Vent bundle. DuoNeb's as needed -Start spontaneous breathing trials again today -Extubated May 06 Incarcerated strangulated Ventral hernia Abdominal abscesses -Status post exploratory laparotomy and washout -Follow-up cultures, negative to date -Empiric antibiotics and antifungal (IV Vanco, IV cefepime, IV Flagyl, IV Diflucan) -ID consultation-Dr. Aguilar -Further management per general surgery -Pain controlled with fentanyl infusion and as needed IV push Septic shock -Aggressive IV fluid hydration -Dontrell-Synephrine as needed to keep map above 65 -Antibiotics as above -Probable pelvic inflammatory disease -Continued need for low-dose Dontrell-Synephrine 05/07 Anemia requiring transfusion -Hemoglobin 6.2, stat 2 units PRBC ordered. DVT GI prophylaxis -Teds SCDs -Pharmacological DVT prophylaxis per surgeon -Pepcijustyna Overall impression: This woman remains critically ill following drainage of gram -negative intra-abdominal abscesses. The abdomen was closed 05/04 and the patient remains with low level sepsis, requiring vasopressor support with Dontrell- Synephrine. She is at high risk for subsequent intra-abdominal infections. Noteworthy is her clinical deterioration over the past several hours. She is now become unstable from a respiratory and hemodynamic standpoint and has required increased vasopressor support and noninvasive mechanical ventilation. Critical CARE 45 minutes aside from procedures
--- NOTE | 2018-05-07 13:22 | P.PNID ---
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 Patient's last hospitalization was in March and at that time she presented with abdominal pain, and had pancreatitis. Her imaging studies did not show pancreatitis, pseudocyst, and an abdominal wall hernia. She she was discharged she has had on and off abdominal pain but he was not that bad, but on the day of admission she had an acute onset of severe abdominal pain. There is no mention of any fever chills or sweats. No nausea or vomiting. Imaging studies on this admission is showing incarcerated hernia and presence of intra-abdominal abscess. Surgery saw the patient, and she was taken to surgery and had exploratory laparotomy, drainage of multiple abscesses , perihepatic, and multiple intra-abdominal and pelvic abscesses. Her abdomen is currently open, and she has a wound VAC over her open abdominal incision. Patient currently is on sedation, on the respirator. She is on Dontrell-Synephrine. She is afebrile. Her white count on admission was 14,000, and it is 29,000 today. She is currently on Diflucan, Flagyl, and Levaquin. Infectious disease consultation has been requested to assist in evaluation and treatment of patient with intra-abdominal abscess. Notes reviewed D/W RN Had surgery: 1. Bilateral salpingo-oophorectomy by Dr. Catherine Escalera. 2. Abdominal washout, abdominal exploration. 3. Lysis of adhesions. 4. Removal of appendiceal stump from probable previously ruptured appendicitis. 5. Drainage of pelvic abscess with intra-abdominal drain. 6. Repair of incisional hernia with closure of abdomen. Overnight events reviewed. Extubated overnight. Appears tachypneic and being placed on BiPAP. Opens eyes spontaneously, tracks, follows simple commands. Moaning and complains of abdominal pain. No fevers. WBC down to 31K. Fluid C/S mixed aerobes and anaerobes BC negative so far Antibiotics: Cefepime Flagyl Vancomycin Diflucan Lines: central line Past Medical History: Traumatic brain injury (Acute) H/O Meckel's diverticulum History of exploratory laparotomy (Acute) H/O abdominal surgery (Acute) H/O brain surgery (Chronic) History of orthopedic surgery Allergies/Adverse Reactions: Allergies amoxicillin Allergy (Severe, Verified 04/05/18 19:19) Hives penicillin G Allergy (Severe, Verified 04/05/18 19:19) Hives Objective Vital Signs 05/06/18 16:00 05/06/18 20:00 05/07/18 00:00 Temperature 99.4 F 98.2 F 98.2 F Pulse Rate 91 H 90 108 H Respiratory Rate 16 14 28 H Blood Pressure 104/58 L 108/58 L 106/50 L Pulse Oximetry 99 05/07/18 04:00 05/07/18 04:50 05/07/18 10:05 Temperature 98.2 F Pulse Rate 106 H 105 H Respiratory Rate 24 Blood Pressure 107/50 L Pulse Oximetry 93 L 05/07/18 12:06 Temperature Pulse Rate Respiratory Rate Blood Pressure Pulse Oximetry 97 Intake & Output 05/06/18 05/07/18 05/07/18 18:59 06:59 18:59 Intake Total 2472.5 / 2472.5 4112.5 / 4112.5 700 / 700 Output Total 680 / 680 745 / 745 Balance 1792.5 / 1792.5 3367.5 / 3367.5 700 / 700 Weight 63.1 kg Intake: IV 2472.5 / 2472.5 1912.5 / 1912.5 700 / 700 Versed Inj 50 mg In 50 ml @ 2 10 / 10 MG/HR 2 mls/hr IV.CONT TITRATE PRN Rx#:[id number] Neosynephrine Inj 40 MG In D5W 500 / 500 0 / 0 500 / 500 Inj 496 ML @ 20 MCG/MIN 15 mls/ hr IV.CONT TITRATE PRN Rx#: [id number] NS Inj 1,000 ML @ 100 mls/hr IV 1000 / 1000 1000 / 1000 .CONT .Q10H [facility] Rx#:[id number] Maxipime Inj 2,000 MG In NS Inj 200 / 200 200 / 200 100 ML @ 200 mls/hr IV.SIG Q8H [facility] Rx#:[id number] Diflucan 400 mg Premix Bag 200 200 / 200 200 / 200 ML @ 100 mls/hr IV.SIG Q24H [facility] Rx#:[id number] KCl 40 mEq Premix Inj 40 meq In 200 / 200 100 ml @ 25 mls/hr IV.SIG Q2H PRN Rx#:[id number] Vancomycin Inj 1,250 MG In NS 262.5 / 262.5 262.5 / 262.5 Inj 250 ML @ 250 mls/hr IV.SIG Q12H [facility] Rx#:[id number] fentaNYL 10 mcg/mL Premix Drip 250 / 250 2,500 mcg In 250 ml @ 50 MCG/HR 5 mls/hr IV.SIG TITRATE PRN Rx #:[id number] Flagyl 500 MG Inj 100 ML @ 100 100 / 100 200 / 200 mls/hr IV.SIG Q8H [facility] Rx#: [id number] Anesthesia Amount 2200 / 2200 Output: Stool 0 / 0 Estimated Blood Loss 250 / 250 Urine Amount (Catheter) 550 / 550 Indwelling Urethral Catheter 550 / 550 Gastric Drainage 50 / 50 50 / 50 Right Nare Nasogastric Tube 50 / 50 50 / 50 Wound Drainage 80 / 80 195 / 195 # 1 Abdomen 80 / 80 80 / 80 Abdomen 115 / 115 Wound Vac Amount 250 / 250 Abdomen 250 / 250 Other: # Bowel Movements 0 0 05/03/18 09:12 Blood - Peripheral Aerobic Blood Culture - Preliminary No growth in 4 days 05/03/18 09:12 Blood - Peripheral Anaerobic Blood Culture - Preliminary No growth in 4 days 05/03/18 08:58 Blood - Peripheral Aerobic Blood Culture - Preliminary No growth in 4 days 05/03/18 08:58 Blood - Peripheral Anaerobic Blood Culture - Preliminary No growth in 4 days 05/02/18 23:50 Abscess - Abdominal Gram Stain - Final 05/02/18 23:50 Abscess - Abdominal Wound Culture - Final 05/02/18 23:50 Abscess - Abdominal Fungal Smear - Final No fungal elements seen 05/02/18 23:50 Abscess - Abdominal Fungal Culture - Pending 05/02/18 23:50 Abscess - Abdominal Acid Fast Bacilli Smear - Final No acid fast bacilli seen 05/02/18 23:50 Abscess - Abdominal Mycobacterial Culture - Pending 05/02/18 16:50 Clean Catch Urine Urine Culture - Final 50-100,000 cfu/mL mixed mahad (probable contaminants ) Lab - Hematology Results 05/06/18 05/07/18 05:42 05:00 WBC 31.6 H 31.7 H RBC 2.71 L 2.49 L Hgb 8.0 L D 7.4 L Hct 24.1 L 22.5 L MCV 89.1 90.6 MCH 29.5 29.7 MCHC 33.1 32.8 RDW 15.8 15.4 Plt Count 266 258 MPV 8.5 8.4 Prelim Diff (Auto) Slide review pending Slide review pending Neut % (Auto) 87.9 H 88.0 H Lymph % (Auto) 6.3 L 6.3 L Kay % (Auto) 3.8 4.6 Eos % (Auto) 0.7 0.7 Baso % (Auto) 1.3 0.4 Neut # (Auto) 27.8 H 27.9 H Lymph # (Auto) 2.0 2.0 Kay # (Auto) 1.2 H 1.4 H Eos # (Auto) 0.2 0.2 Baso # (Auto) 0.4 H 0.1 WBC Differential Manual diff final Manual diff final Seg Neuts % (Manual) 93 H 91 H Band Neuts % (Manual) 4 Lymphocytes % (Manual) 2 L Monocytes % (Manual) 2 2 Eosinophils % (Manual) 1 2 Metamyelocytes % (Man) 1 1 Myelocytes % (Man) 1 H Abs Neuts (Manual) 30.0 H 30.4 H Differential Comment . . Platelet Estimate Normal Normal Platelet Morphology Normal Normal RBC Morphology Normal Lab - Chemistry Results 05/06/18 05/07/18 05:42 05:00 Sodium 141 142 Potassium 3.1 L D 3.7 Chloride 114 H 116 H Carbon Dioxide 16.4 L 16.2 L Anion Gap 11 10 BUN 18 13 Creatinine 0.43 L 0.34 L Estimated GFR Greater than 89 Greater than 89 Random Glucose 109 H 95 Calcium 6.6 L* 6.8 L* Prot Corrected Calcium 8.4 L 8.4 L Total Protein 3.8 L 4.1 L Lipase 4383 H 2938 H Imaging: ITS Impressions Abdomen/Pelvis CT 05/02/18 15:10 CONCLUSION: 1. Anterior abdominal wall hernia containing a loop of small bowel with air and apparent surrounding inflammatory change. There is an abnormal bowel gas pattern and this is of concern for acute obstruction with possible strangulation. 2. New large cystic structure in the pelvis with air-fluid levels as well as additional cystic collections with air-fluid levels with represent additional phlegmon or abscesses. 3. Acute pancreatitis again noted with enlarged head of the pancreas with multiple calcifications and indistinctness. There are new cystic structures within the pancreas. There are multiple calcifications again noted. Pancreatic duct remains dilated. 4. Cirrhotic appearing liver with surrounding ascites. 5. Tiny gallstone again noted. Chest X-Ray 05/07/18 04:44 CONCLUSION: New diffuse consolidation likely representing diffuse edema or diffuse inflammatory change. Physical Exam: GENERAL: on sedation, on the vent, awakens when stimulated. She is not in respiratory distress. SKIN: Cool and dry. No generalized rash, no ecchymoses and no evidence of embolic lesions. HEAD: Atraumatic. Normocephalic. No temporal wasting, or tenderness. EYES: [place] conjunctiva. No petechia or hemorrhage. Pupils equal, round and reactive to light. No scleral icterus. No injection or drainage. EARS, NOSE AND THROAT: Nose without bleeding or purulent nasal discharge, has NGT in place. She is orally intubated.. NECK: Trachea midline. Supple and not tender, no meningeal signs CARDIOVASCULAR: Regular rate and rhythm. No murmurs, rubs or gallops heard RESPIRATORY: Coarse breath sounds bilaterally. No rales, wheezing or rhonchi ABDOMEN: Mildly distended, has midline incision with dry dressing but erythema at lower end. One ILA in LLQ with sanguineous fluid. Tender on palpation. Bowel sounds are hypoactive. EXTREMITIES: No clubbing, cyanosis, or edema. Well perfused and warm. NEUROLOGICAL: Sedated PSYCHIATRIC: Unable to assess LINE: No evidence of infection Assessment and Plan - Plan Impression Sepsis with shock due to intraabdominal process Multiple intraabdominal and pelvic abscess, S/P lap and drainage of abscess - S/P reexploration and closure Respiratory failure Leukocytosis due to above, worse Recommendation Continue IV Vanco erythema at surgical site continue for now. Target trough 10- 15 unless bacteremia. Continue Cefepime IV Continue Flagyl IV for anaerobes. Continue Diflucan GI yeast coverage. If any change in clinical condition overnight change from Cefepime to Meropenem IV. Follow C/S and adjust Abx Monitor progress closely If reintubated overnight please get sputum cultures. Follow CBC D/W TEJA Aguilar to resume care on Tuesday05/06/2018.
--- NOTE | 2018-05-07 15:20 | P.DIET ---
Nutritional Evaluation Type of nutrition evaluation: initial Assessment Assessment: NPO screen received. Pt has been in and out of the OR the last couple of days. She remains intubated. She has been NPO x 5days. Consider nutrition support. Please consult RD if needed.
[2018-05-08] MEDS: Phenylephrine Inj 40 MG in Dextrose 5% in Water Inj 496 ML IV.CONT PRN ×4 (00:35→08:40)
[2018-05-08] MEDS ORDERED: Pharmacy Ordered Lab Info OTHER ONE (01:45)
[2018-05-08] MEDS: Vancomycin Inj 1,250 MG in Sodium Chlor 0.9% Inj 250 ML IV.SIG SCH (02:02)
[2018-05-08] MEDS: fentaNYL 10 mcg/mL Premix Drip 2,500 MCG/250 ML BAG IV.SIG PRN (02:03)
[2018-05-08] MEDS: Sod Chloride 0.9% Inj 1,000 ML IV.CONT SCH ×2 (02:22→04:01)
[2018-05-08] MEDS: Oral Hygiene Kit OROPHARYNG SCH ×3 (03:05→16:10)
--- NOTE | 2018-05-08 05:53 | XR ---
EXAM DATE: 05/08/2018 5:13 AM EDT AGE/SEX: 42 years / Female INDICATIONS: Shortness of breath. CLINICAL DATA: This is the patient's subsequent encounter. Patient reports that signs and symptoms h ave been present for 3 days and indicates a pain score of Nonresponsive. MEDICAL/SURGICAL HISTORY: . Pancreatitis. None. COMPARISON: [facility] – [place]ST 1V SINGLE AP, 05/07/2018. . FINDINGS: A single AP view of the chest demonstrates diffuse dense intra-alveolar consolidations. These have pr ogressed considerably from the prior study. No effusions. Heart is normal in size. Nasogastric tube a nd left subclavian central line noted. CONCLUSION: Considerable worsening of diffuse bilateral infiltrates. Electronically signed by: Tang Garcia MD 05/08/2018 5:51 AM EDT
[2018-05-08 06:51] LABS: Baso # (Auto) 0.2 th/mm3 (0.0-0.2); Baso % (Auto) 0.6 % (0.0-2.0); Eos # (Auto) 0.3 th/mm3 (0.0-0.4); Eos % (Auto) 0.9 % (0.0-4.0); Hematocrit 23.4 % (35.0-46.0); Hemoglobin 7.5 gm/dL (11.6-15.3); Lymph # (Auto) 1.5 th/mm3 (1.0-4.8); Lymph % (Auto) 4.6 % (9.0-44.0); Mean Corpuscular HGB Conc 32.1 % (32.0-36.0); Mean Corpuscular Hemoglobin 29.6 pg (27.0-34.0); Mean Corpuscular Volume 92.2 fL (80.0-100.0); Mean Platelet Volume 8.7 fL (7.0-11.0); Mono # (Auto) 0.9 th/mm3 (0.0-0.9); Mono % (Auto) 2.8 % (0.0-8.0); Neut # (Auto) 29.2 th/mm3 (1.8-7.7); Neut % (Auto) 91.1 % (16.0-70.0); Platelet Count 240 th/mm3 (150-450); Red Blood Count 2.54 mil/mm3 (4.00-5.30); Red Cell Distribution Width 15.7 % (11.6-17.2)
[2018-05-08 07:18] LABS: Anion Gap 9 meq/L (5-15); Blood Urea Nitrogen 13 mg/dL (7-18); Calcium 7.2 mg/dL (8.5-10.1); Carbon Dioxide 19.1 meq/L (21.0-32.0); Chloride 112 meq/L (98-107); Glomerular Filtration Rate Greater Than 89 mL/min (>89); Glucose,Random 126 mg/dL (74-106); Lipase 2075 U/L (73-393); Potassium 3.3 meq/L (3.5-5.1); Sodium 140 meq/L (136-145)
[2018-05-08] MEDS ORDERED: Midazolam Inj 5 MG/ML 1 ML Vial IV.PUSH ONE (07:29)
[2018-05-08 07:35] LABS: Eosinophils 2 % (0-4); Monocytes 1 % (0-8); Platelet Estimate Normal (Normal); Platelet Morphology Normal (Normal); Tallied Nucleated RBC 1 (0-0)
[2018-05-08 07:36] LABS: Toxic Granulation 1+
--- NOTE | 2018-05-08 07:41 | P.PNCC ---
Subjective Subjective Remarks/Hospital Course: 42 year old female admitted for an evaluation of abdominal pain. The abdominal pain has acutely worsened today. Her pain pain has been present intermittently for about 2 weeks but it was not as severe in nature. She has been into the hospital previously and was told she has an abdominal ventral hernia. At that time there was no acute concerns or evidence of strangulation/incarceration. The CAT scan obtained in the emergency department showed large cystic structure in the pelvis with air-fluid levels as well as additional cystic collections with air-fluid levels which represent additional phlegmon or abscesses. She was taken emergently to operating room by Dr. Smith with finding of a fair amount of old blood that was in the abdomen and then down the pelvis as well as a fairly sizable abscess. She has had an abscess around the liver, which was evacuated and irrigated. A portion of the omentum was removed because it was partially necrotic. A second abscess was identified in a portion of the pouch of [place], which was evacuated, cultured as well. The abdomen was packed down the pelvis with two pads and then placed the VAC ABThera temporary closure device as the patient is planned to be broad back to operating room after stabilization in the intensive care unit. SUBJ 05/04: Remains intubated sedated remains critical. Currently on Dontrell- Synephrine to maintain map above 65. Hemoglobin came back at 6.2 ordered to receive 2 units of PRBC. White count is 28,000. Plan for OR 4 PM today. 05/05: Remains intubated and mechanically ventilated. Requiring vasopressor therapy with Dontrell-Synephrine to maintain suitable mean arterial pressure. White count markedly elevated. Abdominal closure yesterday. 05/06: Still requiring vasopressor support to maintain suitable blood pressure. Gas exchange has improved and we will start spontaneous breathing trials again today. White count declining. Renal function acceptable after an additional 3 L of saline were required yesterday. 05/07: During her period of florid sepsis she required considerable intravenous fluid in order to preserve renal function. It is now time to remove some of that fluid and she responded well to diuretics. Persistent leukocytosis is worrisome but overall she appears to be improving. Update 1200 hours: The patient's clinical condition has deteriorated over the past 6 hours, manifesting largely as respiratory distress and hypoxemia. It is tempting to attribute this largely to fluid overload following her extensive resuscitation but the declining bicarb level may well indicate worsening sepsis. 05/08: Continued deterioration and respiratory function overnight. This morning she is in full blown ARDS and will require reintubation and elevated airway pressures. We will obtain sputum on intubation and discuss antibiotic therapy with the infectious disease service. Objective Vital Signs / I&O: Vital Signs 05/07/18 08:00 05/07/18 09:00 05/07/18 10:05 Temperature 99.2 F Pulse Rate 102 H 98 H Respiratory Rate 31 H Blood Pressure 98/50 L Pulse Oximetry 97 93 L 05/07/18 12:00 05/07/18 12:06 05/07/18 16:00 Temperature 100 F H 99.4 F Pulse Rate 102 H 92 H Respiratory Rate 31 H 32 H Blood Pressure 94/63 L 90/49 L Pulse Oximetry 96 97 93 L 05/07/18 16:33 05/07/18 20:00 05/07/18 20:08 Temperature 99.2 F Pulse Rate 86 89 Respiratory Rate 27 H 30 H Blood Pressure 94/48 L Pulse Oximetry 94 L 95 93 L 05/07/18 23:58 05/08/18 00:00 05/08/18 03:37 Temperature 98.5 F Pulse Rate 88 88 Respiratory Rate 28 H 26 H Blood Pressure 130/72 Pulse Oximetry 97 99 100 05/08/18 03:44 05/08/18 04:00 Temperature 98.3 F Pulse Rate 80 92 H Respiratory Rate 29 H 27 H Blood Pressure 118/72 Pulse Oximetry 100 Intake & Output 05/07/18 05/08/18 05/08/18 18:59 06:59 18:59 Intake Total 1662.5 / 1662.5 2312.5 / 2312.5 Output Total 2950 / 2950 765 / 765 Balance -1287.5 / -1287.5 1547.5 / 1547.5 Weight 70 kg Intake: IV 1662.5 / 1662.5 2312.5 / 2312.5 Neosynephrine Inj 40 MG In D5W 1000 / 1000 500 / 500 Inj 496 ML @ 20 MCG/MIN 15 mls/ hr IV.CONT TITRATE PRN Rx#: [id number] NS Inj 1,000 ML @ 40 mls/hr IV. 900 / 900 CONT .Q24H [facility] Rx#:[id number] Maxipime Inj 2,000 MG In NS Inj 100 / 100 200 / 200 100 ML @ 200 mls/hr IV.SIG Q8H [facility] Rx#:[id number] Diflucan 400 mg Premix Bag 200 200 / 200 ML @ 100 mls/hr IV.SIG Q24H [facility] Rx#:[id number] Vancomycin Inj 1,250 MG In NS 262.5 / 262.5 262.5 / 262.5 Inj 250 ML @ 250 mls/hr IV.SIG Q12H [facility] Rx#:[id number] fentaNYL 10 mcg/mL Premix Drip 250 / 250 2,500 mcg In 250 ml @ 50 MCG/HR 5 mls/hr IV.SIG TITRATE PRN Rx #:[id number] Flagyl 500 MG Inj 100 ML @ 100 100 / 100 200 / 200 mls/hr IV.SIG Q8H [facility] Rx#: [id number] Output: Stool 0 / 0 Urine Amount (Catheter) 2900 / 2900 725 / 725 Indwelling Urethral Catheter 2900 / 2900 725 / 725 Gastric Drainage 0 / 0 Right Nare Nasogastric Tube 0 / 0 Wound Drainage 50 / 50 40 / 40 # 1 Abdomen 50 / 50 40 / 40 Other: # Bowel Movements 0 0 Result Diagrams: 05/08/18 06:25 05/08/18 06:25 Objective Remarks: GENERAL: 42 y/o woman, labored respiratory effort. SKIN: No generalized rash, no ecchymoses HEAD: Atraumatic. Normocephalic. EYES: Pupils equal, round and reactive to light. No scleral icterus. No injection or drainage. ENT: NGT in place. Airway widely patent no obstructive noises. NECK: Trachea midline. Supple CARDIOVASCULAR: Regular rate and rhythm. No murmurs, rubs or gallops heard. On 50 mics of Dontrell-Synephrine to maintain map >65 RESPIRATORY: Coarse breath sounds bilaterally. Scattered rhonchi and coarse crackles. ABDOMEN: Closed abdomen. [place] drains draining serous fluid. EXTREMITIES: No clubbing, cyanosis. Extremities well perfused, considerable edema NEUROLOGICAL: Sleeping. She wakes up easily follows commands x4. No focal deficits. Protects airway well. Assessment and Plan - Assessment and Plan Plan: Respiratory failure -Post operative and secondary to severe sepsis -Patient's plans to return to operating room today -Continue mechanical ventilation -SBT daily when hemodynamically stable, and abdomen is closed -Vent bundle. DuoNeb's as needed -Start spontaneous breathing trials again today -Extubated May 06 -She has developed ARDS and required reintubation on May 08. APRV mode required. Incarcerated strangulated Ventral hernia Abdominal abscesses -Status post exploratory laparotomy and washout -Follow-up cultures, negative to date -Empiric antibiotics and antifungal (IV Vanco, IV cefepime, IV Flagyl, IV Diflucan), adjust per ID service -ID consultation-Dr. Aguilar -Further management per general surgery -Pain controlled with fentanyl infusion and as needed IV push Septic shock -Aggressive IV fluid hydration -Dontrell-Synephrine as needed to keep map above 65 -Antibiotics as above -Probable pelvic inflammatory disease -Continued need for low-dose Dontrell-Synephrine 05/07 Anemia requiring transfusion -Hemoglobin 6.2, stat 2 units PRBC ordered. DVT GI prophylaxis -Teds SCDs -Pharmacological DVT prophylaxis per surgeon -Manolo Overall impression: This woman remains critically ill following drainage of gram -negative intra-abdominal abscesses. The abdomen was closed 05/04 and the patient remains with low level sepsis, requiring vasopressor support with Dontrell- Synephrine. She is at high risk for subsequent intra-abdominal infections. Noteworthy is her clinical deterioration over the past 24 hours she is now become unstable from a respiratory and hemodynamic standpoint and has required increased vasopressor support. Reintubation and mechanical ventilation is required now as she continues to deteriorate. Critical CARE 55 minutes aside from procedures
[2018-05-08 07:43] LABS: Total Protein 4.2 g/dL (6.4-8.2)
[2018-05-08] MEDS ORDERED: Midazolam Inj 5 MG/ML 1 ML Vial ONE (07:46)
[2018-05-08] MEDS: Midazolam 50 MG/50 ML Inj 50 MG/50 ML BAG IV.CONT PRN (08:39)
--- NOTE | 2018-05-08 08:43 | P.PCN ---
Procedure: Diagnosis: Acute hypoxemic respiratory failure Procedure: Oliver tracheal intubation Narrative: Timeout performed patient suitably identified. Patient required 100% oxygen on BiPAP noninvasive ventilation with labored breathing and hypoxemia. Chest x-ray consistent with ARDS. Versed 5 mg administered intravenously followed by 100 mg rocuronium intravenous. Gentle bag mask ventilation using Peep valve. 7.5 mm tube inserted under direct vision of the cords. Position confirmed with CO2 detection, bilateral breath sounds, improving oxygen saturation. Chest x-ray has been ordered, will review.
[2018-05-08] MEDS: Chlorhexidine 0.12% Oral Kit 15 ML UDC OROPHARYNG SCH ×3 (09:05→20:35)
[2018-05-08 09:07] LABS: ABG Base Excess -9.5 mmol/L (-2-2); ABG PCO2 52 mmHg (38-42); ABG PO2 57 mmHg (61-120)
--- NOTE | 2018-05-08 09:26 | P.PNGS ---
Subjective Patient reports: other (Patient is intubated was in respiratory distress with full-blown ARDS) Interval history: DAILY PROGRESS NOTE FOR SURGICAL ATTENDING, DR. RADHA FOY Physical Exam Vital signs: Vital Signs 05/07/18 10:05 05/07/18 12:00 05/07/18 12:06 Temperature 100 F H Pulse Rate 102 H Respiratory Rate 31 H Blood Pressure 94/63 L Pulse Oximetry 93 L 96 97 05/07/18 16:00 05/07/18 16:33 05/07/18 20:00 Temperature 99.4 F 99.2 F Pulse Rate 92 H 86 Respiratory Rate 32 H 27 H Blood Pressure 90/49 L 94/48 L Pulse Oximetry 93 L 94 L 95 05/07/18 20:08 05/07/18 23:58 05/08/18 00:00 Temperature 98.5 F Pulse Rate 89 88 88 Respiratory Rate 30 H 28 H 26 H Blood Pressure 130/72 Pulse Oximetry 93 L 97 99 05/08/18 03:37 05/08/18 03:44 05/08/18 04:00 Temperature 98.3 F Pulse Rate 80 92 H Respiratory Rate 29 H 27 H Blood Pressure 118/72 Pulse Oximetry 100 100 05/08/18 08:00 Temperature Pulse Rate Respiratory Rate 11 L Blood Pressure Pulse Oximetry Intake & Output 05/07/18 05/08/18 05/08/18 18:59 06:59 18:59 Intake Total 1662.5 / 1662.5 2312.5 / 2312.5 1700 / 1700 Output Total 2950 / 2950 765 / 765 Balance -1287.5 / -1287.5 1547.5 / 1547.5 1700 / 1700 Weight 70 kg Intake: IV 1662.5 / 1662.5 2312.5 / 2312.5 1700 / 1700 Neosynephrine Inj 40 MG In D5W 1000 / 1000 500 / 500 500 / 500 Inj 496 ML @ 20 MCG/MIN 15 mls/ hr IV.CONT TITRATE PRN Rx#: [id number] NS Inj 1,000 ML @ 40 mls/hr IV. 900 / 900 CONT .Q24H ALMA Rx#:[id number] Maxipime Inj 2,000 MG In NS Inj 100 / 100 200 / 200 100 ML @ 200 mls/hr IV.SIG Q8H ALMA Rx#:[id number] Diflucan 400 mg Premix Bag 200 200 / 200 200 / 200 ML @ 100 mls/hr IV.SIG Q24H ALMA Rx#:[id number] Vancomycin Inj 1,250 MG In NS 262.5 / 262.5 262.5 / 262.5 Inj 250 ML @ 250 mls/hr IV.SIG Q12H ALMA Rx#:[id number] fentaNYL 10 mcg/mL Premix Drip 250 / 250 2,500 mcg In 250 ml @ 50 MCG/HR 5 mls/hr IV.SIG TITRATE PRN Rx #:[id number] Flagyl 500 MG Inj 100 ML @ 100 100 / 100 200 / 200 mls/hr IV.SIG Q8H ALMA Rx#: [id number] Output: Stool 0 / 0 Urine Amount (Catheter) 2900 / 2900 725 / 725 Indwelling Urethral Catheter 2900 / 2900 725 / 725 Gastric Drainage 0 / 0 Right Nare Nasogastric Tube 0 / 0 Wound Drainage 50 / 50 40 / 40 # 1 Abdomen 50 / 50 40 / 40 Other: # Bowel Movements 0 0 Narrative: Patient in the ICU Recently got intubated for respiratory distress full-blown ARDS sats in the high 80s abdomen soft midline wound healing ILA with brownish drainage less than before Urinary urinary output marginal - Additional findings Additional findings: ITS Impressions Chest x-ray ARDS - Urinary Catheter Management Indwelling Urethral Catheter Cath placed during this visit: yes Reason for continuing: Hourly intake/output Insertion date: 05/03/18 Assessment and Plan - Assessment (1) ARDS (adult respiratory distress syndrome) Code(s): J80 - Acute respiratory distress syndrome Status: Acute (2) Intra-abdominal abscess Code(s): K65.1 - Peritoneal abscess Status: Acute Plan: (3) Acute on chronic pancreatitis Code(s): K85.90 - Acute pancreatitis without necrosis or infection, unspecified ; K86.1 - Other chronic pancreatitis Status: Chronic (4) H/O brain surgery Code(s): Z98.890 - Other specified postprocedural states Status: Chronic - Plan Continue maximal medical support May require TPN Could start low-dose tube feeds once bowel activity returned Discussed with Dr. Back machinist set up NOTE FOR SURGICAL ATTENDING, DR. RADHA FOY I attest that I had a [id number] encounter with the patient on the same day, and personally performed and documented my assessment and findings in the medical record. The following services were provided during this hospital visit: Chart data review, vital sign assessments/reviewing monitor data Review of consultations notes if present. Medication orders/review and/or management Ordering and/or reviewing lab tests Ordering and/or interpreting/reviewing x-rays and/or diagnostic studies Care of the patient and discussion of the patient with the care team Documentation time To help prompt me to consider important information that might be impacting today's encounter and assessment, Information from prior notes written by myself or my colleagues may have been "brought forward/copy and pasted" into today's note. - Attending Attestation NOTE FOR SURGICAL ATTENDING, DR. RADHA FOY I attest that I had a [id number] encounter with the patient on the same day, and personally performed and documented my assessment and findings in the medical record. The following services were provided during this hospital visit: Chart data review, vital sign assessments/reviewing monitor data Review of consultations notes if present. Medication orders/review and/or management Ordering and/or reviewing lab tests Ordering and/or interpreting/reviewing x-rays and/or diagnostic studies Care of the patient and discussion of the patient with the care team Documentation time To help prompt me to consider important information that might be impacting today's encounter and assessment, Information from prior notes written by myself or my colleagues may have been "brought forward/copy and pasted" into today's note.
[2018-05-08] MEDS: Famotidine PF Inj 20 MG/2 ML Vial IV.PUSH SCH ×2 (09:29→20:35)
[2018-05-08] MEDS: Potassium Chlor 40 mEq Premix 40 MEQ/100 ML PIGGYBACK IV.SIG PRN (09:30)
--- NOTE | 2018-05-08 09:37 | XR ---
EXAM DATE: 05/08/2018 9:03 AM EDT AGE/SEX: 42 years / Female INDICATIONS: Post ET tube placement. CLINICAL DATA: This is the patient's subsequent encounter. Patient reports that signs and symptoms h ave been present for 1 day and indicates a pain score of Nonresponsive. MEDICAL/SURGICAL HISTORY: Hypertension. Pancreatitis. None. COMPARISON: C, CHEST 1V SINGLE AP, 05/08/2018. . FINDINGS: 2 portable AP views of the chest demonstrate leftward shift of the mediastinum with complete opacific ation of the left hemithorax. There is patchy airspace consolidation through the right lung, most sev ere in the right lower lung zone with a small right pleural-based opacity. Endotracheal tube is prese nt with distal tip extending into the right main bronchus. A left subclavian central line is present with distal tip in the SVC. Nasogastric tube extends into the stomach. No pneumothorax is identified. Bones and soft tissues demonstrate no acute finding. CONCLUSION: 1. The endotracheal tube extends into the right main bronchus and there is associated volume loss in the left lung with complete opacification of the left hemithorax. 2. Severe diffuse right lung airspace consolidation more severe in the lower lung zone with small ri ght pleural effusion. 3. These findings were telephoned to the nurse taking care of this patient at 9:35 AM. Informed me t hat the intensive this has already retracted the endotracheal tube. Electronically signed by: Scotty Ball MD 05/08/2018 9:35 AM EDT
[2018-05-08] MEDS ORDERED: Sodium Bicarbonate 8.4% Inj 50 MEQ/50 ML Syringe IV.PUSH ONE (09:45)
[2018-05-08] MEDS: Sodium Bicarbonate 8.4% Inj 150 MEQ in Water for Inj, Sterile 850 ML IV.CONT SCH (11:00)
[2018-05-08 11:54] LABS: ABG Base Excess -5.7 mmol/L (-2-2); ABG PCO2 39 mmHg (38-42); ABG PO2 144 mmHg (61-120)
--- NOTE | 2018-05-08 13:45 | P.PNID ---
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 Patient's last hospitalization was in March and at that time she presented with abdominal pain, and had pancreatitis. Her imaging studies did not show pancreatitis, pseudocyst, and an abdominal wall hernia. She she was discharged she has had on and off abdominal pain but he was not that bad, but on the day of admission she had an acute onset of severe abdominal pain. There is no mention of any fever chills or sweats. No nausea or vomiting. Imaging studies on this admission is showing incarcerated hernia and presence of intra-abdominal abscess. Surgery saw the patient, and she was taken to surgery and had exploratory laparotomy, drainage of multiple abscesses , perihepatic, and multiple intra-abdominal and pelvic abscesses. Her abdomen is currently open, and she has a wound VAC over her open abdominal incision. Patient currently is on sedation, on the respirator. She is on Dontrell-Synephrine. She is afebrile. Her white count on admission was 14,000, and it is 29,000 today. She is currently on Diflucan, Flagyl, and Levaquin. Infectious disease consultation has been requested to assist in evaluation and treatment of patient with intra-abdominal abscess. Had surgery: 05/04 1. Bilateral salpingo-oophorectomy by Dr. Catherine Escalera. 2. Abdominal washout, abdominal exploration. 3. Lysis of adhesions. 4. Removal of appendiceal stump from probable previously ruptured appendicitis. 5. Drainage of pelvic abscess with intra-abdominal drain. 6. Repair of incisional hernia with closure of abdomen. Notes reviewed D/W RN Was extubated over the weekend but got reintubated today Remains on pressors, on dontrell, but on levophed now Temps ok On sedation but opens eyes briefly WBC at 32 CXR abnormal Fluid C/S mixed aerobes and anaerobes BC negative so far Antibiotics: Cefepime Flagyl Vancomycin Diflucan Lines: central line LSC Past Medical History: Traumatic brain injury (Acute) H/O Meckel's diverticulum History of exploratory laparotomy (Acute) H/O abdominal surgery (Acute) H/O brain surgery (Chronic) History of orthopedic surgery Allergies/Adverse Reactions: Allergies amoxicillin Allergy (Severe, Verified 04/05/18 19:19) Hives penicillin G Allergy (Severe, Verified 04/05/18 19:19) Hives Objective Vital Signs 05/07/18 16:00 05/07/18 16:33 05/07/18 20:00 Temperature 99.4 F 99.2 F Pulse Rate 92 H 86 Respiratory Rate 32 H 27 H Blood Pressure 90/49 L 94/48 L Pulse Oximetry 93 L 94 L 95 05/07/18 20:08 05/07/18 23:58 05/08/18 00:00 Temperature 98.5 F Pulse Rate 89 88 88 Respiratory Rate 30 H 28 H 26 H Blood Pressure 130/72 Pulse Oximetry 93 L 97 99 05/08/18 03:37 05/08/18 03:44 05/08/18 04:00 Temperature 98.3 F Pulse Rate 80 92 H Respiratory Rate 29 H 27 H Blood Pressure 118/72 Pulse Oximetry 100 100 05/08/18 08:00 05/08/18 09:00 05/08/18 09:29 Temperature 97.7 F Pulse Rate 112 H 89 Respiratory Rate 11 L 15 Blood Pressure 111/76 Pulse Oximetry 100 100 05/08/18 11:43 05/08/18 11:49 05/08/18 12:00 Temperature 98.2 F Pulse Rate 92 H 92 H Respiratory Rate 17 19 12 Blood Pressure 94/58 L Pulse Oximetry 100 100 05/08/18 12:11 Temperature Pulse Rate Respiratory Rate Blood Pressure Pulse Oximetry 100 Intake & Output 05/07/18 05/08/18 05/08/18 18:59 06:59 18:59 Intake Total 1662.5 / 1662.5 2312.5 / 2312.5 2250 / 2250 Output Total 2950 / 2950 765 / 765 Balance -1287.5 / -1287.5 1547.5 / 1547.5 2250 / 2250 Weight 70 kg Intake: IV 1662.5 / 1662.5 2312.5 / 2312.5 2250 / 2250 Neosynephrine Inj 40 MG In D5W 1000 / 1000 500 / 500 650 / 650 Inj 496 ML @ 20 MCG/MIN 15 mls/ hr IV.CONT TITRATE PRN Rx#: [id number] NS Inj 1,000 ML @ 40 mls/hr IV. 900 / 900 400 / 400 CONT .Q24H ALMA Rx#:[id number] Maxipime Inj 2,000 MG In NS Inj 100 / 100 200 / 200 100 ML @ 200 mls/hr IV.SIG Q8H ALMA Rx#:[id number] Diflucan 400 mg Premix Bag 200 200 / 200 200 / 200 ML @ 100 mls/hr IV.SIG Q24H ALMA Rx#:[id number] Vancomycin Inj 1,250 MG In NS 262.5 / 262.5 262.5 / 262.5 Inj 250 ML @ 250 mls/hr IV.SIG Q12H ALMA Rx#:[id number] fentaNYL 10 mcg/mL Premix Drip 250 / 250 2,500 mcg In 250 ml @ 50 MCG/HR 5 mls/hr IV.SIG TITRATE PRN Rx #:[id number] Flagyl 500 MG Inj 100 ML @ 100 100 / 100 200 / 200 mls/hr IV.SIG Q8H ALMA Rx#: [id number] Output: Stool 0 / 0 Urine Amount (Catheter) 2900 / 2900 725 / 725 Indwelling Urethral Catheter 2900 / 2900 725 / 725 Gastric Drainage 0 / 0 Right Nare Nasogastric Tube 0 / 0 Wound Drainage 50 / 50 40 / 40 # 1 Abdomen 50 / 50 40 / 40 Other: # Bowel Movements 0 0 05/03/18 09:12 Blood - Peripheral Aerobic Blood Culture - Final No growth in 5 days 05/03/18 09:12 Blood - Peripheral Anaerobic Blood Culture - Final No growth in 5 days 05/03/18 08:58 Blood - Peripheral Aerobic Blood Culture - Final No growth in 5 days 05/03/18 08:58 Blood - Peripheral Anaerobic Blood Culture - Final No growth in 5 days Lab - Hematology Results 05/07/18 05/08/18 05:00 06:25 WBC 31.7 H 32.0 H RBC 2.49 L 2.54 L Hgb 7.4 L 7.5 L Hct 22.5 L 23.4 L MCV 90.6 92.2 MCH 29.7 29.6 MCHC 32.8 32.1 RDW 15.4 15.7 Plt Count 258 240 MPV 8.4 8.7 Prelim Diff (Auto) Slide review pending Slide review pending Neut % (Auto) 88.0 H 91.1 H Lymph % (Auto) 6.3 L 4.6 L [place] % (Auto) 4.6 2.8 Eos % (Auto) 0.7 0.9 Baso % (Auto) 0.4 0.6 Neut # (Auto) 27.9 H 29.2 H Lymph # (Auto) 2.0 1.5 [place] # (Auto) 1.4 H 0.9 Eos # (Auto) 0.2 0.3 Baso # (Auto) 0.1 0.2 WBC Differential Manual diff final Manual diff final Seg Neuts % (Manual) 91 H 93 H Band Neuts % (Manual) 4 4 Monocytes % (Manual) 2 1 Eosinophils % (Manual) 2 2 Metamyelocytes % (Man) 1 Abs Neuts (Manual) 30.4 H 31.0 H Nucleated RBCs/100 WBC 1 H Differential Comment . . Toxic Granulation 1+ H Platelet Estimate Normal Normal Platelet Morphology Normal Normal Lab - Chemistry Results 05/07/18 05/07/18 05/08/18 05:00 13:05 06:25 Sodium 142 140 Potassium 3.7 3.3 L Chloride 116 H 112 H Carbon Dioxide 16.2 L 19.1 L Anion Gap 10 9 BUN 13 13 Creatinine 0.34 L 0.45 L Estimated GFR Greater than 89 Greater than 89 Random Glucose 95 126 H Lactic Acid 1.1 Calcium 6.8 L* 7.2 L* Prot Corrected Calcium 8.4 L 8.9 Total Protein 4.1 L 4.2 L Lipase 2938 H 2075 H Imaging: ITS Impressions Abdomen/Pelvis CT 05/02/18 15:10 CONCLUSION: 1. Anterior abdominal wall hernia containing a loop of small bowel with air and apparent surrounding inflammatory change. There is an abnormal bowel gas pattern and this is of concern for acute obstruction with possible strangulation. 2. New large cystic structure in the pelvis with air-fluid levels as well as additional cystic collections with air-fluid levels with represent additional phlegmon or abscesses. 3. Acute pancreatitis again noted with enlarged head of the pancreas with multiple calcifications and indistinctness. There are new cystic structures within the pancreas. There are multiple calcifications again noted. Pancreatic duct remains dilated. 4. Cirrhotic appearing liver with surrounding ascites. 5. Tiny gallstone again noted. Chest X-Ray 05/08/18 08:36 CONCLUSION: 1. The endotracheal tube extends into the right main bronchus and there is associated volume loss in the left lung with complete opacification of the left hemithorax. 2. Severe diffuse right lung airspace consolidation more severe in the lower lung zone with small right pleural effusion. 3. These findings were telephoned to the nurse taking care of this patient at 9 :35 AM. Informed me that the intensive this has already retracted the endotracheal tube. Physical Exam: GENERAL: on sedation, on the vent, awakens when stimulated. She is not in respiratory distress. SKIN: Cool and dry. No generalized rash, no ecchymoses and no evidence of embolic lesions. HEAD: Atraumatic. Normocephalic. No temporal wasting, or tenderness. EYES: [place] conjunctiva. No petechia or hemorrhage. Pupils equal, round and reactive to light. No scleral icterus. No injection or drainage. EARS, NOSE AND THROAT: Nose without bleeding or purulent nasal discharge, has NGT in place. She is orally intubated.. NECK: Trachea midline. Supple and not tender, no meningeal signs CARDIOVASCULAR: Regular rate and rhythm. No murmurs, rubs or gallops heard RESPIRATORY: Coarse breath sounds bilaterally. No rales, wheezing or rhonchi ABDOMEN: Mildly distended, has midline incision with dry dressing but erythema at lower end. One ILA in LLQ with brownish fluid. Tender on palpation. Bowel sounds are hypoactive. EXTREMITIES: No clubbing, cyanosis, or edema. Well perfused and warm. NEUROLOGICAL: Sedated PSYCHIATRIC: Unable to assess LINE: LSC line No evidence of infection Assessment and Plan - Plan Impression Sepsis with shock due to intraabdominal process Multiple intraabdominal and pelvic abscess, S/P lap and drainage of abscess - S/P reexploration and closure Respiratory failure New bilateral pulmonary infiltrates - ?PNA Leukocytosis Recommendation Continue IV Vanco Continue Cefepime IV Continue Flagyl IV for anaerobes. Continue Diflucan GI yeast coverage. Sputum G/S C/S 2 BC Follow C/S and adjust Abx Monitor progress closely Follow CBC D/W RN Spoke with Dr Back ([facility])
[2018-05-09] MEDS: fentaNYL 10 mcg/mL Premix Drip 2,500 MCG/250 ML BAG IV.SIG PRN (01:04)
[2018-05-09] MEDS: Sodium Bicarbonate 8.4% Inj 150 MEQ in Water for Inj, Sterile 850 ML IV.CONT SCH ×2 (01:08→16:55)
[2018-05-09] MEDS: Oral Hygiene Kit OROPHARYNG SCH ×4 (01:09→17:53)
[2018-05-09] MEDS ORDERED: Chlorhexidine Gluconate 2% 1 Pack (2 Cloths) TOPICAL PRN (04:00)
--- NOTE | 2018-05-09 04:21 | XR ---
EXAM DATE: 05/09/2018 4:14 AM EDT AGE/SEX: 42 years / Female INDICATIONS: Shortness of breath. Possible respiratory disease. CLINICAL DATA: This is the patient's subsequent encounter. Patient reports that signs and symptoms h ave been present for 1 week and indicates a pain score of Nonresponsive. MEDICAL/SURGICAL HISTORY: . Hypertension. Pancreatitis. None. COMPARISON: [facility] [place] [facility] [place]ST 1V SINGLE AP, 05/08/2018. . FINDINGS: A single AP view of the chest demonstrates the tip of the endotracheal tube has been pulled back into the trachea. The tip is approximately 3 cm from the arti. Left subclavian central line. Nasogastri c tube. There is been reexpansion left lung. Diffuse bilateral pulmonary infiltrates are noted. These are most pronounced within the bases. Overall there has been improvement relative to the prior study . No effusions. Heart is normal in size. CONCLUSION: Reexpansion of the left lung with diffuse bilateral pulmonary infiltrates that have shown some improv ement.. Electronically signed by: Tang Garcia MD 05/09/2018 4:19 AM EDT
[2018-05-09 04:45] LABS: Baso # (Auto) 0.2 th/mm3 (0.0-0.2); Baso % (Auto) 0.7 % (0.0-2.0); Eos # (Auto) 0.3 th/mm3 (0.0-0.4); Eos % (Auto) 0.9 % (0.0-4.0); Lymph # (Auto) 1.4 th/mm3 (1.0-4.8); Lymph % (Auto) 5.1 % (9.0-44.0); Mean Corpuscular HGB Conc 33.5 % (32.0-36.0); Mean Corpuscular Hemoglobin 29.2 pg (27.0-34.0); Mean Corpuscular Volume 87.4 fL (80.0-100.0); Mono # (Auto) 0.8 th/mm3 (0.0-0.9); Mono % (Auto) 2.8 % (0.0-8.0); Neut # (Auto) 25.6 th/mm3 (1.8-7.7); Neut % (Auto) 90.5 % (16.0-70.0); Platelet Count 202 th/mm3 (150-450); Red Blood Count 2.25 mil/mm3 (4.00-5.30); Red Cell Distribution Width 15.3 % (11.6-17.2); White Blood Count 28.3 th/mm3 (4.0-11.0)
[2018-05-09 05:07] LABS: Albumin 0.8 g/dL (3.4-5.0); Calcium 6.9 mg/dL (8.5-10.1); Carbon Dioxide 23.5 meq/L (21.0-32.0); Potassium 3.5 meq/L (3.5-5.1); Total Protein 4.2 g/dL (6.4-8.2); Vancomycin,Random 33.6 Comment
[2018-05-09] MEDS: Chlorhexidine Gluconate 2% 1 Pack (2 Cloths) TOPICAL SCH (05:16)
[2018-05-09 05:17] LABS: Hemoglobin 6.6 gm/dL (11.6-15.3)
[2018-05-09 05:18] LABS: Hematocrit 19.7 % (35.0-46.0)
--- NOTE | 2018-05-09 07:44 | P.PNCC ---
Subjective Subjective Remarks/Hospital Course: 42 year old female admitted for an evaluation of abdominal pain. The abdominal pain has acutely worsened today. Her pain pain has been present intermittently for about 2 weeks but it was not as severe in nature. She has been into the hospital previously and was told she has an abdominal ventral hernia. At that time there was no acute concerns or evidence of strangulation/incarceration. The CAT scan obtained in the emergency department showed large cystic structure in the pelvis with air-fluid levels as well as additional cystic collections with air-fluid levels which represent additional phlegmon or abscesses. She was taken emergently to operating room by Dr. Smith with finding of a fair amount of old blood that was in the abdomen and then down the pelvis as well as a fairly sizable abscess. She has had an abscess around the liver, which was evacuated and irrigated. A portion of the omentum was removed because it was partially necrotic. A second abscess was identified in a portion of the pouch of Casey, which was evacuated, cultured as well. The abdomen was packed down the pelvis with two pads and then placed the VAC ABThera temporary closure device as the patient is planned to be brought back to operating room after stabilization in the intensive care unit. SUBJ 05/04: Remains intubated sedated remains critical. Currently on Dontrell- Synephrine to maintain map above 65. Hemoglobin came back at 6.2 ordered to receive 2 units of PRBC. White count is 28,000. Plan for OR 4 PM today. 05/05: Remains intubated and mechanically ventilated. Requiring vasopressor therapy with Dontrell-Synephrine to maintain suitable mean arterial pressure. White count markedly elevated. Abdominal closure yesterday. 05/06: Still requiring vasopressor support to maintain suitable blood pressure. Gas exchange has improved and we will start spontaneous breathing trials again today. White count declining. Renal function acceptable after an additional 3 L of saline were required yesterday. 05/07: During her period of florid sepsis she required considerable intravenous fluid in order to preserve renal function. It is now time to remove some of that fluid and she responded well to diuretics. Persistent leukocytosis is worrisome but overall she appears to be improving. Update 1200 hours: The patient's clinical condition has deteriorated over the past 6 hours, manifesting largely as respiratory distress and hypoxemia. It is tempting to attribute this largely to fluid overload following her extensive resuscitation but the declining bicarb level may well indicate worsening sepsis. 05/08: Continued deterioration and respiratory function overnight. This morning she is in full blown ARDS and will require reintubation and elevated airway pressures. We will obtain sputum on intubation and discuss antibiotic therapy with the infectious disease service. 05/09: Remains in ARDS. Oxygen diffusion gradient has been reduced by elevated mean airway pressures. Still vasopressor dependent and now anemic. No obvious source of blood loss. Remains critically ill and unstable. Objective Vital Signs / I&O: Vital Signs 05/08/18 08:00 05/08/18 09:00 05/08/18 09:29 Temperature 97.7 F Pulse Rate 112 H 89 Respiratory Rate 11 L 15 Blood Pressure 111/76 Pulse Oximetry 100 100 05/08/18 11:43 05/08/18 11:49 05/08/18 12:00 Temperature 98.2 F Pulse Rate 92 H 92 H Respiratory Rate 17 19 12 Blood Pressure 94/58 L Pulse Oximetry 100 100 05/08/18 12:11 05/08/18 15:54 05/08/18 15:57 Temperature Pulse Rate 85 Respiratory Rate 12 12 Blood Pressure Pulse Oximetry 100 97 05/08/18 16:00 05/08/18 20:00 05/08/18 20:16 Temperature 98.5 F 98.9 F Pulse Rate 87 86 86 Respiratory Rate 13 12 11 L Blood Pressure 94/50 L 120/64 Pulse Oximetry 98 05/09/18 00:00 05/09/18 01:34 05/09/18 04:00 Temperature 99.4 F 98.7 F Pulse Rate 92 H 93 H Respiratory Rate 12 12 22 Blood Pressure 108/54 L 97/60 L Pulse Oximetry 98 05/09/18 04:18 Temperature Pulse Rate Respiratory Rate 24 Blood Pressure Pulse Oximetry 97 Intake & Output 05/08/18 05/09/18 05/09/18 18:59 06:59 18:59 Intake Total 2800 / 2800 1900 / 1900 200 / 200 Output Total 345 / 345 265 / 265 Balance 2455 / 2455 1635 / 1635 200 / 200 Weight 73.3 kg Intake: IV 2800 / 2800 1900 / 1900 200 / 200 Neosynephrine Inj 40 MG In D5W 650 / 650 Inj 496 ML @ 20 MCG/MIN 15 mls/ hr IV.CONT TITRATE PRN Rx#: [id number] NS Inj 1,000 ML @ 40 mls/hr IV. 400 / 400 CONT .Q24H ALMA Rx#:[id number] Sodium Bicarbonate 8.4% Inj 150 1000 / 1000 MEQ In Sterile Water for Inj 850 ML @ 75 mls/hr IV.CONT . [id number] ALMA Rx#:[id number] Maxipime Inj 2,000 MG In NS Inj 100 / 100 200 / 200 100 ML @ 200 mls/hr IV.SIG Q8H ALMA Rx#:[id number] Diflucan 400 mg Premix Bag 200 200 / 200 200 / 200 ML @ 100 mls/hr IV.SIG Q24H ALMA Rx#:[id number] Levophed-Dextrose 4 mg/250 ml 250 / 250 250 / 250 Drip 4 mg In 250 ml @ 2 MCG/MIN 7.5 mls/hr IV.SIG TITRATE PRN Rx#:[id number] KCl 40 mEq Premix Inj 40 meq In 100 / 100 100 ml @ 25 mls/hr IV.SIG Q2H PRN Rx#:[id number] fentaNYL 10 mcg/mL Premix Drip 250 / 250 2,500 mcg In 250 ml @ 50 MCG/HR 5 mls/hr IV.SIG TITRATE PRN Rx #:[id number] Flagyl 500 MG Inj 100 ML @ 100 100 / 100 200 / 200 mls/hr IV.SIG Q8H ALMA Rx#: [id number] Output: Urine Amount (Catheter) 250 / 250 225 / 225 Indwelling Urethral Catheter 250 / 250 225 / 225 Gastric Drainage 50 / 50 0 / 0 Right Nare Nasogastric Tube 50 / 50 0 / 0 Wound Drainage 45 / 45 40 / 40 # 1 Abdomen 45 / 45 40 / 40 Other: # Bowel Movements 0 Result Diagrams: 05/09/18 04:30 05/09/18 04:30 Objective Remarks: GENERAL: 42 y/o woman, sedated, mechanically ventilated. SKIN: No generalized rash, no ecchymoses HEAD: Atraumatic. Normocephalic. EYES: Pupils equal, round and reactive to light. No scleral icterus. No injection or drainage. ENT: NGT in place. Oral tracheal intubation. NECK: Trachea midline. Supple CARDIOVASCULAR: Regular rate and rhythm. No murmurs, rubs or gallops heard. On levophed infusion to maintain map >65 RESPIRATORY: Coarse breath sounds bilaterally. Scattered rhonchi and coarse crackles persist. ABDOMEN: Closed abdomen. Cristobal-Timmons drains draining serous fluid. EXTREMITIES: No clubbing, cyanosis. Extremities well perfused, considerable edema NEUROLOGICAL: Sedated for vent synchrony. Withdraws 4 limbs to noxious stimulation Assessment and Plan - Assessment and Plan Plan: Respiratory failure -Post operative and secondary to severe sepsis -Patient's plans to return to operating room today -Continue mechanical ventilation -SBT daily when hemodynamically stable, and abdomen is closed -Vent bundle. DuoNeb's as needed -Start spontaneous breathing trials again today -Extubated May 06 -She has developed ARDS and required reintubation on May 08. APRV mode required. FiO2 100%. Incarcerated strangulated Ventral hernia Abdominal abscesses -Status post exploratory laparotomy and washout -Follow-up cultures, negative to date -Empiric antibiotics and antifungal (IV Vanco, IV cefepime, IV Flagyl, IV Diflucan), adjust per ID service -ID consultation-Dr. Aguilar -Further management per general surgery -Pain controlled with fentanyl infusion and as needed IV push Septic shock -Aggressive IV fluid hydration -Dontrell-Synephrine as needed to keep map above 65 -Antibiotics as above -Probable pelvic inflammatory disease -Continued need for low-dose Dontrell-Synephrine 05/07 -Converted to norepinephrine for more vigorous support Anemia requiring transfusion -Hemoglobin 6.2, stat 2 units PRBC ordered. DVT GI prophylaxis -Teds SCDs -Pharmacological DVT prophylaxis per surgeon -Manolo Overall impression: This woman remains critically ill following drainage of gram -negative intra-abdominal abscesses. The abdomen was closed 05/04 and the patient remains with low level sepsis, requiring vasopressor support with Dontrell- Synephrine. She is at high risk for subsequent intra-abdominal infections. Noteworthy is her clinical deterioration over the past 24 hours she is now become unstable from a respiratory and hemodynamic standpoint and has required increased vasopressor support. Reintubation and mechanical ventilation was required as she continued to deteriorate in sepsis and ARDS.. Critical care 45 minutes aside from procedures
[2018-05-09 07:55] LABS: Lymphocytes 2 % (9-44); Monocytes 2 % (0-8); Myelocytes 1 % (0-0); Tallied Nucleated RBC 1 (0-0); Toxic Granulation 1+
[2018-05-09 07:56] LABS: Platelet Estimate Normal (Normal); Platelet Morphology Normal (Normal)
[2018-05-09] MEDS: Famotidine PF Inj 20 MG/2 ML Vial IV.PUSH SCH ×2 (08:28→21:01)
[2018-05-09] MEDS: Chlorhexidine 0.12% Oral Kit 15 ML UDC OROPHARYNG SCH ×2 (08:28→19:48)
[2018-05-09] MEDS: Midazolam 50 MG/50 ML Inj 50 MG/50 ML BAG IV.CONT PRN (08:30)
--- NOTE | 2018-05-09 09:03 | P.PNGS ---
Subjective Interval history: Patient remains clinically ill in the intensive care unit Still on the ventilator Physical Exam Vital signs: Vital Signs 05/09/18 01:34 05/09/18 04:00 05/09/18 04:18 Temperature 98.7 F Pulse Rate 93 H Respiratory Rate 12 22 24 Blood Pressure 97/60 L Pulse Oximetry 98 97 05/09/18 07:46 05/09/18 07:50 Temperature Pulse Rate 93 H Respiratory Rate 11 L 16 Blood Pressure Pulse Oximetry 100 Intake & Output 05/08/18 05/09/18 05/09/18 18:59 06:59 18:59 Intake Total 2800 / 2800 1900 / 1900 200 / 200 Output Total 345 / 345 265 / 265 Balance 2455 / 2455 1635 / 1635 200 / 200 Weight 73.3 kg Intake: IV 2800 / 2800 1900 / 1900 200 / 200 Neosynephrine Inj 40 MG In D5W 650 / 650 Inj 496 ML @ 20 MCG/MIN 15 mls/ hr IV.CONT TITRATE PRN Rx#: [id number] NS Inj 1,000 ML @ 40 mls/hr IV. 400 / 400 CONT .Q24H ALMA Rx#:[id number] Sodium Bicarbonate 8.4% Inj 150 1000 / 1000 MEQ In Sterile Water for Inj 850 ML @ 75 mls/hr IV.CONT . [id number] ALMA Rx#:[id number] Maxipime Inj 2,000 MG In NS Inj 100 / 100 200 / 200 100 ML @ 200 mls/hr IV.SIG Q8H ALMA Rx#:[id number] Diflucan 400 mg Premix Bag 200 200 / 200 200 / 200 ML @ 100 mls/hr IV.SIG Q24H ALMA Rx#:[id number] Levophed-Dextrose 4 mg/250 ml 250 / 250 250 / 250 Drip 4 mg In 250 ml @ 2 MCG/MIN 7.5 mls/hr IV.SIG TITRATE PRN Rx#:[id number] KCl 40 mEq Premix Inj 40 meq In 100 / 100 100 ml @ 25 mls/hr IV.SIG Q2H PRN Rx#:[id number] fentaNYL 10 mcg/mL Premix Drip 250 / 250 2,500 mcg In 250 ml @ 50 MCG/HR 5 mls/hr IV.SIG TITRATE PRN Rx #:[id number] Flagyl 500 MG Inj 100 ML @ 100 100 / 100 200 / 200 mls/hr IV.SIG Q8H ALMA Rx#: [id number] Output: Urine Amount (Catheter) 250 / 250 225 / 225 Indwelling Urethral Catheter 250 / 250 225 / 225 Gastric Drainage 50 / 50 0 / 0 Right Nare Nasogastric Tube 50 / 50 0 / 0 Wound Drainage 45 / 45 40 / 40 # 1 Abdomen 45 / 45 40 / 40 Other: # Bowel Movements 0 Narrative: Patient in the ICU intubated for respiratory distress ARDS sats in the high 80s abdomen soft midline wound healing ILA with clear brownish drainage decreasing Urinary urinary output noted - Additional findings Additional findings: ITS Impressions Abdomen/Pelvis CT 05/02/18 15:10 CONCLUSION: 1. Anterior abdominal wall hernia containing a loop of small bowel with air and apparent surrounding inflammatory change. There is an abnormal bowel gas pattern and this is of concern for acute obstruction with possible strangulation. 2. New large cystic structure in the pelvis with air-fluid levels as well as additional cystic collections with air-fluid levels with represent additional phlegmon or abscesses. 3. Acute pancreatitis again noted with enlarged head of the pancreas with multiple calcifications and indistinctness. There are new cystic structures within the pancreas. There are multiple calcifications again noted. Pancreatic duct remains dilated. 4. Cirrhotic appearing liver with surrounding ascites. 5. Tiny gallstone again noted. Chest X-Ray 05/09/18 04:00 CONCLUSION: Reexpansion of the left lung with diffuse bilateral pulmonary infiltrates that have shown some improvement.. - Urinary Catheter Management Indwelling Urethral Catheter Cath placed during this visit: yes Reason for continuing: Hourly intake/output Insertion date: 05/03/18 Assessment and Plan - Assessment (1) Pelvic abscess in female Code(s): N73.9 - Female pelvic inflammatory disease, unspecified Status: Acute (2) ARDS (adult respiratory distress syndrome) Code(s): J80 - Acute respiratory distress syndrome Status: Acute (3) Intra-abdominal abscess Code(s): K65.1 - Peritoneal abscess Status: Acute Plan: (4) Acute on chronic pancreatitis Code(s): K85.90 - Acute pancreatitis without necrosis or infection, unspecified ; K86.1 - Other chronic pancreatitis Status: Chronic (5) H/O brain surgery Code(s): Z98.890 - Other specified postprocedural states Status: Chronic (6) Anemia Code(s): D64.9 - Anemia, unspecified Status: Acute - Plan Status post sepsis from severe PID status post 2 expirations with bilateral oophorectomy and drainage of abdominal and pelvic abscess Now with ARDS Continue maximal medical support Will start TPN start low-dose tube feeds She will need blood transfusion Antibiotics per infectious disease Discussed with Dr. Back elementary assistant principal NOTE FOR SURGICAL ATTENDING, DR. RADHA FOY I attest that I had a [id number] encounter with the patient on the same day, and personally performed and documented my assessment and findings in the medical record. The following services were provided during this hospital visit: Chart data review, vital sign assessments/reviewing monitor data Review of consultations notes if present. Medication orders/review and/or management Ordering and/or reviewing lab tests Ordering and/or interpreting/reviewing x-rays and/or diagnostic studies Care of the patient and discussion of the patient with the care team Documentation time To help prompt me to consider important information that might be impacting today's encounter and assessment, Information from prior notes written by myself or my colleagues may have been "brought forward/copy and pasted" into today's note.
[2018-05-09 11:38] LABS: Magnesium 1.2 mg/dL (1.5-2.5)
[2018-05-09 11:39] LABS: Phosphorus 2.4 mg/dL (2.5-4.9)
[2018-05-09 11:55] LABS: INR 2.2 Ratio
--- NOTE | 2018-05-09 13:42 | P.DIET ---
Nutritional Evaluation Type of nutrition evaluation: initial Nutrition consult regarding: Tube Feeding, TPN/PPN Objective - Diagnosis Abdominal Ventral Wall Hernia Incarceration - Objective % IBW: 126 (IBW = 110#) Body Weight Used for Calculations: Actual (63.1 kg) Energy Needs - Lower Range (kCal/kg): 25 Energy Needs - Upper Range (kCal/kg): 30 Lower Limit kCal/kg (kCals): 1,578 Upper Limit kCal/kg (kCals): 1,893 Lower Limit Protein Factor (Grams per Kg): 1.0 Upper Limit Protein Factor (Grams per Kg): 1.5 Lower Protein Needs (Protein): 63 Upper Protein Needs (Protein): 95 Dietitian Reviewed in Medical Record: Curent medications, Intake & Output, Labs , Medical history, TPN/PPN, Tube feeding Diet Order: NPO Objective Comments: 05/02 exp lap, partial omenctomy, abd wound vac 05/04 exp lap, rigid sigmoidoscopy, abdominal wash out, repair of incisional hernia Assessment Assessment: Pt remains vented and critically ill. Trickle TF of Jevity 1.5 @ 10 mls/hr ordered. TPN/lipids also ordered today: Clinimix E 4.25/25 @ 83 mls/hr with 20% lipids 250 mls/day. Recommend decrease TPN rate to 65 mls/hr to provide 1591 kcals and 66 gms protein. Lipds will provide an additional 500 kcals per day. If pt tolerates trickle TF, lipids will not be needed. Request weekly TG while pt is on TPN. Recommendations: TPN: Clinimix E 4.25/25 @ 65 mls/hr LIPIDS: 20% lipids 250 mls/hr Trickle Feeds: Jevity 1.5 @ 10 mls/hr. Goal 50 mls/hr when appropriate.
[2018-05-09] MEDS: Magnesium Sulfate Inj 2 GM in Sodium Chlor 0.9% Inj 96 ML IV.SIG PRN (16:56)
[2018-05-09] MEDS: Multivitamin Inj 5 ML, Folic Acid Inj 0.5 MG in AA 4.25 %/D25W - Electrolytes 1,000 ML IV.SIG SCH (21:00)
[2018-05-10] MEDS: fentaNYL 10 mcg/mL Premix Drip 2,500 MCG/250 ML BAG IV.SIG PRN (03:33)
[2018-05-10] MEDS: Chlorhexidine Gluconate 2% 1 Pack (2 Cloths) TOPICAL SCH (03:34)
[2018-05-10] MEDS: Oral Hygiene Kit OROPHARYNG SCH ×4 (03:34→16:39)
[2018-05-10 06:24] LABS: Baso # (Auto) 0.3 th/mm3 (0.0-0.2); Baso % (Auto) 1.2 % (0.0-2.0); Eos # (Auto) 0.2 th/mm3 (0.0-0.4); Hematocrit 27.9 % (35.0-46.0); Hemoglobin 9.6 gm/dL (11.6-15.3); Lymph % (Auto) 4.7 % (9.0-44.0); Mean Corpuscular HGB Conc 34.4 % (32.0-36.0); Mean Corpuscular Hemoglobin 30.3 pg (27.0-34.0); Mean Platelet Volume 9.5 fL (7.0-11.0); Mono # (Auto) 0.4 th/mm3 (0.0-0.9); Mono % (Auto) 1.8 % (0.0-8.0); Neut % (Auto) 91.3 % (16.0-70.0); Platelet Count 144 th/mm3 (150-450); Red Blood Count 3.17 mil/mm3 (4.00-5.30); Red Cell Distribution Width 15.3 % (11.6-17.2); White Blood Count 21.9 th/mm3 (4.0-11.0)
[2018-05-10 06:54] LABS: Calcium 6.8 mg/dL (8.5-10.1); Carbon Dioxide 23.9 meq/L (21.0-32.0); Vancomycin,Random 18.4 Comment
[2018-05-10 07:04] LABS: Potassium 2.9 meq/L (3.5-5.1)
--- NOTE | 2018-05-10 07:17 | P.PNCC ---
Subjective Subjective Remarks/Hospital Course: 42 year old female admitted for an evaluation of abdominal pain. The abdominal pain has acutely worsened today. Her pain pain has been present intermittently for about 2 weeks but it was not as severe in nature. She has been into the hospital previously and was told she has an abdominal ventral hernia. At that time there was no acute concerns or evidence of strangulation/incarceration. The CAT scan obtained in the emergency department showed large cystic structure in the pelvis with air-fluid levels as well as additional cystic collections with air-fluid levels which represent additional phlegmon or abscesses. She was taken emergently to operating room by Dr. Smith with finding of a fair amount of old blood that was in the abdomen and then down the pelvis as well as a fairly sizable abscess. She has had an abscess around the liver, which was evacuated and irrigated. A portion of the omentum was removed because it was partially necrotic. A second abscess was identified in a portion of the pouch of Casey, which was evacuated, cultured as well. The abdomen was packed down the pelvis with two pads and then placed the VAC ABThera temporary closure device as the patient is planned to be brought back to operating room after stabilization in the intensive care unit. SUBJ 05/04: Remains intubated sedated remains critical. Currently on Dontrell- Synephrine to maintain map above 65. Hemoglobin came back at 6.2 ordered to receive 2 units of PRBC. White count is 28,000. Plan for OR 4 PM today. 05/05: Remains intubated and mechanically ventilated. Requiring vasopressor therapy with Dontrell-Synephrine to maintain suitable mean arterial pressure. White count markedly elevated. Abdominal closure yesterday. 05/06: Still requiring vasopressor support to maintain suitable blood pressure. Gas exchange has improved and we will start spontaneous breathing trials again today. White count declining. Renal function acceptable after an additional 3 L of saline were required yesterday. 05/07: During her period of florid sepsis she required considerable intravenous fluid in order to preserve renal function. It is now time to remove some of that fluid and she responded well to diuretics. Persistent leukocytosis is worrisome but overall she appears to be improving. Update 1200 hours: The patient's clinical condition has deteriorated over the past 6 hours, manifesting largely as respiratory distress and hypoxemia. It is tempting to attribute this largely to fluid overload following her extensive resuscitation but the declining bicarb level may well indicate worsening sepsis. 05/08: Continued deterioration and respiratory function overnight. This morning she is in full blown ARDS and will require reintubation and elevated airway pressures. We will obtain sputum on intubation and discuss antibiotic therapy with the infectious disease service. 05/09: Remains in ARDS. Oxygen diffusion gradient has been reduced by elevated mean airway pressures. Still vasopressor dependent and now anemic. No obvious source of blood loss. Remains critically ill and unstable. 05/10: Moves 4 limbs and responds. Gas exchange remains impaired but a little better than yesterday. Respiratory status remains unstable. Persistent elevation of lipase is concerning and it may be necessary to convert to parenteral nutrition. No evidence of bleeding. Will need to remove central line today Objective Vital Signs / I&O: Vital Signs 05/09/18 07:46 05/09/18 07:50 05/09/18 08:00 Temperature 98.5 F Pulse Rate 93 H 90 Respiratory Rate 11 L 16 11 L Blood Pressure 106/54 L Pulse Oximetry 100 05/09/18 09:52 05/09/18 10:48 05/09/18 11:05 Temperature 98.5 F 98.1 F 98.2 F Pulse Rate 98 H 88 86 Respiratory Rate 13 14 16 Blood Pressure 99/53 L 110/62 115/66 Pulse Oximetry 95 97 05/09/18 11:32 05/09/18 12:00 05/09/18 15:29 Temperature 98.3 F Pulse Rate 87 88 Respiratory Rate 21 22 22 Blood Pressure 110/65 Pulse Oximetry 96 92 L 05/09/18 16:00 05/09/18 20:00 05/09/18 20:19 Temperature 98.3 F 98.2 F Pulse Rate 82 82 85 Respiratory Rate 20 22 21 Blood Pressure 116/67 96/50 L Pulse Oximetry 96 96 05/09/18 23:42 05/10/18 00:00 05/10/18 03:36 Temperature 98.3 F Pulse Rate 80 86 Respiratory Rate 22 25 H 28 H Blood Pressure 108/70 Pulse Oximetry 97 97 97 05/10/18 04:00 Temperature 97.6 F Pulse Rate 86 Respiratory Rate 20 Blood Pressure 92/62 L Pulse Oximetry 99 Intake & Output 05/09/18 05/10/18 05/10/18 18:59 06:59 18:59 Intake Total 2788 / 2788 1260 / 1260 Output Total 225 / 225 320 / 320 Balance 2563 / 2563 940 / 940 Weight 73.8 kg Intake: IV 1750 / 1750 1160 / 1160 Sodium Bicarbonate 8.4% Inj 150 1000 / 1000 MEQ In Sterile Water for Inj 850 ML @ 75 mls/hr IV.CONT . [id number] ALMA Rx#:[id number] Maxipime Inj 2,000 MG In NS Inj 100 / 100 200 / 200 100 ML @ 200 mls/hr IV.SIG Q8H ALMA Rx#:[id number] Intralipid 20% Inj 250 ML @ 31. 250 / 250 25 mls/hr IV.SIG Q24H ALMA Rx#: [id number] Diflucan 400 mg Premix Bag 200 200 / 200 ML @ 100 mls/hr IV.SIG Q24H ALMA Rx#:[id number] Magnesium Sulfate Inj 2 GM In 100 / 100 NS Inj 96 ML @ 50 mls/hr IV.SIG UNSCH PRN Rx#:[id number] Levophed-Dextrose 4 mg/250 ml 250 / 250 Drip 4 mg In 250 ml @ 2 MCG/MIN 7.5 mls/hr IV.SIG TITRATE PRN Rx#:[id number] Potassium Phosphate Inj 30 MMOL 260 / 260 In NS Inj 250 ML @ 42 mls/hr IV.SIG UNSCH PRN Rx#:[id number] fentaNYL 10 mcg/mL Premix Drip 250 / 250 2,500 mcg In 250 ml @ 50 MCG/HR 5 mls/hr IV.SIG TITRATE PRN Rx #:[id number] Flagyl 500 MG Inj 100 ML @ 100 100 / 100 200 / 200 mls/hr IV.SIG Q8H ALMA Rx#: [id number] Tube Feeding 78 / 78 100 / 100 Water Bolus Amount 60 / 60 Other 100 / 100 Rbc As-3 Leukoreduced Unit 50 / 50 [id number] Rbc As-3 Leukoreduced Unit 50 / 50 [id number] Intake (Blood Product) Amt 800 / 800 Rbc As-3 Leukoreduced Unit 400 / 400 [id number] Rbc As-3 Leukoreduced Unit 400 / 400 [id number] Output: Urine Amount (Catheter) 175 / 175 300 / 300 Indwelling Urethral Catheter 175 / 175 300 / 300 Gastric Drainage 25 / Right Nare Nasogastric Tube 25 / Wound Drainage # 1 Abdomen Other: # Bowel Movements 0 Result Diagrams: 05/10/18 05:47 05/10/18 05:47 Objective Remarks: GENERAL: 42 y/o woman, sedated, mechanically ventilated. SKIN: No generalized rash, no ecchymoses HEAD: Atraumatic. Normocephalic. EYES: Pupils equal, round and reactive to light. No conjunctival icterus. No injection or drainage. ENT: NGT in place. Oral tracheal intubation. NECK: Trachea midline. Supple CARDIOVASCULAR: Regular rate and rhythm. No murmurs, rubs or gallops heard. On vasopressor infusion to maintain map >65 RESPIRATORY: Coarse breath sounds bilaterally. Few scattered rhonchi and coarse crackles persist. ABDOMEN: Closed abdomen. Cristobal-Timmons drains draining serous fluid. EXTREMITIES: No clubbing, cyanosis. Extremities well perfused, considerable edema in extremities. NEUROLOGICAL: Sedated for vent synchrony. Withdraws 4 limbs to noxious stimulation. Opens eyes to voice. VIJAYA. Assessment and Plan - Assessment and Plan Plan: Respiratory failure -Post operative and secondary to severe sepsis -Patient's plans to return to operating room today -Continue mechanical ventilation -SBT daily when hemodynamically stable, and abdomen is closed -Vent bundle. DuoNeb's as needed -Start spontaneous breathing trials again today -Extubated May 06 -She has developed ARDS and required reintubation on May 08. APRV mode required. FiO2 100%. -Reduce pressure high to 28, increase pressure low to 5. Decrease release time to 0.6. Incarcerated strangulated Ventral hernia Abdominal abscesses -Status post exploratory laparotomy and washout -Follow-up cultures, negative to date -Empiric antibiotics and antifungal (IV Vanco, IV cefepime, IV Flagyl, IV Diflucan), adjust per ID service -ID consultation-Dr. Aguilar -Further management per general surgery -Pain controlled with fentanyl infusion and as needed IV push Septic shock -Aggressive IV fluid hydration -Dontrell-Synephrine as needed to keep map above 65 -Antibiotics as above -Probable pelvic inflammatory disease -Continued need for low-dose Dontrell-Synephrine 05/07 -Converted to norepinephrine for more vigorous support Anemia requiring transfusion -Hemoglobin 6.2, stat 2 units PRBC ordered. DVT GI prophylaxis -Teds SCDs -Pharmacological DVT prophylaxis per surgeon -Manolo Overall impression: This woman remains critically ill following drainage of gram -negative intra-abdominal abscesses. The abdomen was closed 05/04 and the patient remains with low level sepsis, requiring vasopressor support with Dontrell- Synephrine. She is at high risk for subsequent intra-abdominal infections. Noteworthy is her recent clinical deterioration, she has now become unstable from a respiratory and hemodynamic standpoint and has required increased vasopressor support. Reintubation and mechanical ventilation was required as she continued to deteriorate in sepsis and ARDS. She remains on markedly elevated airway pressures. Critical care 42 minutes aside from procedures
[2018-05-10 07:20] LABS: Total Protein 4.3 g/dL (6.4-8.2)
--- NOTE | 2018-05-10 07:32 | P.PNGS ---
Subjective Patient reports: other (Patient still in the ICU Ventilator) Physical Exam Vital signs: Vital Signs 05/09/18 23:42 05/10/18 00:00 05/10/18 03:36 Temperature 98.3 F Pulse Rate 80 86 Respiratory Rate 22 25 H 28 H Blood Pressure 108/70 Pulse Oximetry 97 97 97 05/10/18 04:00 Temperature 97.6 F Pulse Rate 86 Respiratory Rate 20 Blood Pressure 92/62 L Pulse Oximetry 99 Intake & Output 05/09/18 05/10/18 05/10/18 18:59 06:59 18:59 Intake Total 2788 / 2788 1260 / 1260 Output Total 225 / 225 320 / 320 Balance 2563 / 2563 940 / 940 Weight 73.8 kg Intake: IV 1750 / 1750 1160 / 1160 Sodium Bicarbonate 8.4% Inj 150 1000 / 1000 MEQ In Sterile Water for Inj 850 ML @ 75 mls/hr IV.CONT . [id number] [facility] Rx#:[id number] Maxipime Inj 2,000 MG In NS Inj 100 / 100 200 / 200 100 ML @ 200 mls/hr IV.SIG Q8H [facility] Rx#:[id number] Intralipid 20% Inj 250 ML @ 31. 250 / 250 25 mls/hr IV.SIG Q24H [facility] Rx#: [id number] Diflucan 400 mg Premix Bag 200 200 / 200 ML @ 100 mls/hr IV.SIG Q24H [facility] Rx#:[id number] Magnesium Sulfate Inj 2 GM In 100 / 100 NS Inj 96 ML @ 50 mls/hr IV.SIG UNSCH PRN Rx#:[id number] Levophed-Dextrose 4 mg/250 ml 250 / 250 Drip 4 mg In 250 ml @ 2 MCG/MIN 7.5 mls/hr IV.SIG TITRATE PRN Rx#:[id number] Potassium Phosphate Inj 30 MMOL 260 / 260 In NS Inj 250 ML @ 42 mls/hr IV.SIG UNSCH PRN Rx#:[id number] fentaNYL 10 mcg/mL Premix Drip 250 / 250 2,500 mcg In 250 ml @ 50 MCG/HR 5 mls/hr IV.SIG TITRATE PRN Rx #:[id number] Flagyl 500 MG Inj 100 ML @ 100 100 / 100 200 / 200 mls/hr IV.SIG Q8H [facility] Rx#: [id number] Tube Feeding 78 / 78 100 / 100 Water Bolus Amount 60 / 60 Other 100 / 100 Rbc As-3 Leukoreduced Unit 50 / 50 [id number] Rbc As-3 Leukoreduced Unit 50 / 50 [id number] Intake (Blood Product) Amt 800 / 800 Rbc As-3 Leukoreduced Unit 400 / 400 [id number] Rbc As-3 Leukoreduced Unit 400 / 400 [id number] Output: Urine Amount (Catheter) 175 / 175 300 / 300 Indwelling Urethral Catheter 175 / 175 300 / 300 Gastric Drainage 25 / 25 Right Nare Nasogastric Tube 25 / 25 Wound Drainage 25 / 25 20 / 20 # 1 Abdomen 25 / 25 20 / 20 Other: # Bowel Movements 0 Narrative: Patient in the ICU intubated for respiratory distress ARDS sats adequate Tolerating tube feeds 10 cc an hour abdomen soft midline wound healing ILA with clear brownish drainage decreasing Urinary urinary output noted - Additional findings Additional findings: ITS Impressions Abdomen/Pelvis CT 05/02/18 15:10 CONCLUSION: 1. Anterior abdominal wall hernia containing a loop of small bowel with air and apparent surrounding inflammatory change. There is an abnormal bowel gas pattern and this is of concern for acute obstruction with possible strangulation. 2. New large cystic structure in the pelvis with air-fluid levels as well as additional cystic collections with air-fluid levels with represent additional phlegmon or abscesses. 3. Acute pancreatitis again noted with enlarged head of the pancreas with multiple calcifications and indistinctness. There are new cystic structures within the pancreas. There are multiple calcifications again noted. Pancreatic duct remains dilated. 4. Cirrhotic appearing liver with surrounding ascites. 5. Tiny gallstone again noted. Chest X-Ray 05/09/18 04:00 CONCLUSION: Reexpansion of the left lung with diffuse bilateral pulmonary infiltrates that have shown some improvement.. Abnormal lab results 05/02/18 05/04/18 05/09/18 Range/Units 23:59 10:13 04:30 WBC (4.0-11.0) th/mm3 RBC (4.00-5.30) mil/mm3 Hgb (11.6-15.3) gm/dL Hct (35.0-46.0) % Plt Count (150-450) th/mm3 Neut % (Auto) (16.0-70.0) % Lymph % (Auto) (9.0-44.0) % Neut # (Auto) (1.8-7.7) th/mm3 Baso # (Auto) (0.0-0.2) th/mm3 Seg Neuts % (Manual) 87 H (16-70) % Band Neuts % (Manual) 8 H (0-6) % Lymphocytes % (Manual) 2 L (9-44) % Myelocytes % (Man) 1 H (0-0) % Abs Neuts (Manual) 27.2 H (1.8-7.7) th/mm3 Nucleated RBCs/100 WBC 1 H (0-0) /100 WBC Toxic Granulation 1+ H (None) PT (9.8-11.6) sec Potassium (3.5-5.1) meq/L Estimated GFR (>89) mL/min POC Glucose (68-110) mg/dl Random Glucose (74-106) mg/dL Calcium (8.5-10.1) mg/dL Prot Corrected Calcium (8.5-10.1) mg/dL Phosphorus (2.5-4.9) mg/dL Magnesium (1.5-2.5) mg/dL Total Protein (6.4-8.2) g/dL Lipase (73-393) U/L MTS Gel Crossmatch See Detail See Detail 05/09/18 05/09/18 05/09/18 Range/Units 04:30 08:02 11:21 WBC (4.0-11.0) th/mm3 RBC (4.00-5.30) mil/mm3 Hgb (11.6-15.3) gm/dL Hct (35.0-46.0) % Plt Count (150-450) th/mm3 Neut % (Auto) (16.0-70.0) % Lymph % (Auto) (9.0-44.0) % Neut # (Auto) (1.8-7.7) th/mm3 Baso # (Auto) (0.0-0.2) th/mm3 Seg Neuts % (Manual) (16-70) % Band Neuts % (Manual) (0-6) % Lymphocytes % (Manual) (9-44) % Myelocytes % (Man) (0-0) % Abs Neuts (Manual) (1.8-7.7) th/mm3 Nucleated RBCs/100 WBC (0-0) /100 WBC Toxic Granulation (None) PT 22.0 H (9.8-11.6) sec Potassium (3.5-5.1) meq/L Estimated GFR (>89) mL/min POC Glucose (68-110) mg/dl Random Glucose (74-106) mg/dL Calcium (8.5-10.1) mg/dL Prot Corrected Calcium (8.5-10.1) mg/dL Phosphorus 2.4 L (2.5-4.9) mg/dL Magnesium 1.2 L (1.5-2.5) mg/dL Total Protein (6.4-8.2) g/dL Lipase (73-393) U/L MTS Gel Crossmatch See Detail 05/10/18 05/10/18 05/10/18 Range/Units 00:11 05:47 05:47 WBC 21.9 H (4.0-11.0) th/mm3 RBC 3.17 L (4.00-5.30) mil/mm3 Hgb 9.6 L D (11.6-15.3) gm/dL Hct 27.9 L (35.0-46.0) % Plt Count 144 L (150-450) th/mm3 Neut % (Auto) 91.3 H (16.0-70.0) % Lymph % (Auto) 4.7 L (9.0-44.0) % Neut # (Auto) 20.0 H (1.8-7.7) th/mm3 Baso # (Auto) 0.3 H (0.0-0.2) th/mm3 Seg Neuts % (Manual) (16-70) % Band Neuts % (Manual) (0-6) % Lymphocytes % (Manual) (9-44) % Myelocytes % (Man) (0-0) % Abs Neuts (Manual) (1.8-7.7) th/mm3 Nucleated RBCs/100 WBC (0-0) /100 WBC Toxic Granulation (None) PT (9.8-11.6) sec Potassium 2.9 L* (3.5-5.1) meq/L Estimated GFR 63 L (>89) mL/min POC Glucose 242 H (68-110) mg/dl Random Glucose 339 H D (74-106) mg/dL Calcium 6.8 L* (8.5-10.1) mg/dL Prot Corrected Calcium 8.3 L (8.5-10.1) mg/dL Phosphorus (2.5-4.9) mg/dL Magnesium (1.5-2.5) mg/dL Total Protein 4.3 L (6.4-8.2) g/dL Lipase 3105 H (73-393) U/L MTS Gel Crossmatch - Urinary Catheter Management Indwelling Urethral Catheter Cath placed during this visit: yes Reason for continuing: Hourly intake/output Insertion date: 05/03/18 Assessment and Plan - Assessment (1) Pelvic abscess in female Code(s): N73.9 - Female pelvic inflammatory disease, unspecified Status: Acute (2) ARDS (adult respiratory distress syndrome) Code(s): J80 - Acute respiratory distress syndrome Status: Acute (3) Intra-abdominal abscess Code(s): K65.1 - Peritoneal abscess Status: Acute Plan: (4) Acute on chronic pancreatitis Code(s): K85.90 - Acute pancreatitis without necrosis or infection, unspecified ; K86.1 - Other chronic pancreatitis Status: Chronic (5) H/O brain surgery Code(s): Z98.890 - Other specified postprocedural states Status: Chronic - Plan Status post sepsis from severe PID status post exploration 2 with bilateral oophorectomy and drainage of abdominal and pelvic abscess Now with ARDS Continue maximal medical support White count decreasing TPN started replace potassium and magnesium as needed start on sliding scale for elevated sugars Tolerating low-dose tube feeds Antibiotics per infectious disease Discussed with Dr. Back document management analyst NOTE FOR SURGICAL ATTENDING, DR. RADHA FOY I attest that I had a [id number] encounter with the patient on the same day, and personally performed and documented my assessment and findings in the medical record. The following services were provided during this hospital visit: Chart data review, vital sign assessments/reviewing monitor data Review of consultations notes if present. Medication orders/review and/or management Ordering and/or reviewing lab tests Ordering and/or interpreting/reviewing x-rays and/or diagnostic studies Care of the patient and discussion of the patient with the care team Documentation time To help prompt me to consider important information that might be impacting today's encounter and assessment, Information from prior notes written by myself or my colleagues may have been "brought forward/copy and pasted" into today's note. - Attending Attestation NOTE FOR SURGICAL ATTENDING, DR. RADHA FOY I attest that I had a [id number] encounter with the patient on the same day, and personally performed and documented my assessment and findings in the medical record. The following services were provided during this hospital visit: Chart data review, vital sign assessments/reviewing monitor data Review of consultations notes if present. Medication orders/review and/or management Ordering and/or reviewing lab tests Ordering and/or interpreting/reviewing x-rays and/or diagnostic studies Care of the patient and discussion of the patient with the care team Documentation time To help prompt me to consider important information that might be impacting today's encounter and assessment, Information from prior notes written by myself or my colleagues may have been "brought forward/copy and pasted" into today's note.
--- NOTE | 2018-05-10 07:58 | XR ---
EXAM DATE: 05/10/2018 7:55 AM EDT AGE/SEX: 42 years / Female INDICATIONS: Short of breath. CLINICAL DATA: This is the patient's subsequent encounter. Patient reports that signs and symptoms h ave been present for 4 - 6 days and indicates a pain score of Nonresponsive. MEDICAL/SURGICAL HISTORY: . Pancreatitis. Hypertension. . . Abdominal surgery COMPARISON: [facility] [place], CHEST 1V SINGLE AP, 05/09/2018. . FINDINGS: Portable AP view of the chest demonstrates a normal-sized cardiac silhouette. Multiple lines overlie the patient. Endotracheal tube, left subclavian central line, and nasogastric tube remain present. Th ere is moderate to severe bilateral lower lung zone predominant airspace consolidation, left greater than right. No pleural effusion or pneumothorax is identified. The bones and soft tissues demonstrate no acute finding. CONCLUSION: Stable chest x-ray with moderate to severe bilateral lower lung zone airspace consolidation. Electronically signed by: Scotty Ball MD 05/10/2018 7:57 AM EDT
[2018-05-10 08:05] LABS: Eosinophils 1 % (0-4); Lymphocytes 1 % (9-44); Metamyelocytes 2 % (0-1); Platelet Morphology Normal (Normal)
[2018-05-10] MEDS ORDERED: Dextrose 50% in Water 50 ML Vial IV.PUSH PRN (08:05)
[2018-05-10] MEDS: Famotidine PF Inj 20 MG/2 ML Vial IV.PUSH SCH ×2 (08:28→20:05)
[2018-05-10] MEDS: Potassium Chlor 40 mEq Premix 40 MEQ/100 ML PIGGYBACK IV.SIG PRN ×2 (08:28→13:51)
[2018-05-10] MEDS: Chlorhexidine 0.12% Oral Kit 15 ML UDC OROPHARYNG SCH ×2 (08:28→20:06)
[2018-05-10] MEDS: Insulin Detemir Inj 1,000 UNIT/10 ML Vial SQ SCH ×2 (08:41→20:06)
[2018-05-10] MEDS: Multivitamin Inj 5 ML, Folic Acid Inj 0.5 MG in AA 4.25 %/D25W - Electrolytes 1,000 ML IV.SIG SCH ×2 (08:41→21:48)
[2018-05-10] MEDS ORDERED: Magnesium Sulfate Inj 2 GM in Sodium Chlor 0.9% Inj 96 ML IV.SIG ONE (09:00)
--- NOTE | 2018-05-10 09:37 | P.PCN ---
Procedure: Preoperative diagnosis: Septic shock Postoperative diagnosis: Septic shock Procedure: Insertion right subclavian central venous access line Narrative: Timeout performed, patient properly identified. Right chest prepped and draped. Infraclavicular region anesthetized with local 1% Xylocaine. Using a thin-walled needle the subclavian was cannulated from beneath the clavicle and a wire easily advanced. Dilator was passed and the triple-lumen central line was passed over the wire to 18 cm depth. All 3 lm were aspirated and flushed. A StatLock and sterile dressing was applied. Chest x-ray was ordered, will review.
--- NOTE | 2018-05-10 09:58 | XR ---
EXAM DATE: 05/10/2018 9:46 AM EDT AGE/SEX: 42 years / Female INDICATIONS: Central line placement. CLINICAL DATA: This is the patient's initial encounter. Patient reports that signs and symptoms have been present for 1 day and indicates a pain score of Nonresponsive. MEDICAL/SURGICAL HISTORY: Hypertension. None. COMPARISON: [facility], CHEST 1V SINGLE AP, 05/10/2018. . FINDINGS: ET tube central venous catheters and nasogastric tube are in good position. There is no pneumothorax. Heart size is appropriate. Moderate interstitial and alveolar infiltrates persist in both lungs. CONCLUSION: New Line in good position from the right without pneumothorax. Electronically signed by: Mirza Richard MD 05/10/2018 9:57 AM EDT
[2018-05-10] MEDS: Midazolam 50 MG/50 ML Inj 50 MG/50 ML BAG IV.CONT PRN (11:52)
[2018-05-10] MEDS: Sodium Bicarbonate 8.4% Inj 150 MEQ in Water for Inj, Sterile 850 ML IV.CONT SCH (11:54)
[2018-05-10] MEDS: Insulin NovoLOG Aspart Correctional Sugar Inj SQ SCH ×2 (13:50→18:16)
--- NOTE | 2018-05-10 14:04 | P.PNID ---
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 Patient's last hospitalization was in March and at that time she presented with abdominal pain, and had pancreatitis. Her imaging studies did not show pancreatitis, pseudocyst, and an abdominal wall hernia. She she was discharged she has had on and off abdominal pain but he was not that bad, but on the day of admission she had an acute onset of severe abdominal pain. There is no mention of any fever chills or sweats. No nausea or vomiting. Imaging studies on this admission is showing incarcerated hernia and presence of intra-abdominal abscess. Surgery saw the patient, and she was taken to surgery and had exploratory laparotomy, drainage of multiple abscesses , perihepatic, and multiple intra-abdominal and pelvic abscesses. Her abdomen is currently open, and she has a wound VAC over her open abdominal incision. Patient currently is on sedation, on the respirator. She is on Dontrell-Synephrine. She is afebrile. Her white count on admission was 14,000, and it is 29,000 today. She is currently on Diflucan, Flagyl, and Levaquin. Infectious disease consultation has been requested to assist in evaluation and treatment of patient with intra-abdominal abscess. Had surgery: 05/04 1. Bilateral salpingo-oophorectomy by Dr. Catherine Escalera. 2. Abdominal washout, abdominal exploration. 3. Lysis of adhesions. 4. Removal of appendiceal stump from probable previously ruptured appendicitis. 5. Drainage of pelvic abscess with intra-abdominal drain. 6. Repair of incisional hernia with closure of abdomen. Notes reviewed D/W RN On the vent, sedated FiO2 at 35% Still on pressors Secretions clear WBC lower at 21K Sputum C/S pending Fluid C/S mixed aerobes and anaerobes BC negative so far Has new central line Antibiotics: Cefepime Flagyl Vancomycin Diflucan Lines: central line [facility] - 05/10 Past Medical History: Traumatic brain injury (Acute) H/O Meckel's diverticulum History of exploratory laparotomy (Acute) H/O abdominal surgery (Acute) H/O brain surgery (Chronic) History of orthopedic surgery Allergies/Adverse Reactions: Allergies amoxicillin Allergy (Severe, Verified 04/05/18 19:19) Hives penicillin G Allergy (Severe, Verified 04/05/18 19:19) Hives Objective Vital Signs 05/09/18 15:29 05/09/18 16:00 05/09/18 20:00 Temperature 98.3 F 98.2 F Pulse Rate 88 82 82 Respiratory Rate 22 20 22 Blood Pressure 116/67 96/50 L Pulse Oximetry 92 L 96 96 05/09/18 20:19 05/09/18 23:42 05/10/18 00:00 Temperature 98.3 F Pulse Rate 85 80 Respiratory Rate 21 22 25 H Blood Pressure 108/70 Pulse Oximetry 97 97 05/10/18 03:36 05/10/18 04:00 05/10/18 07:53 Temperature 97.6 F Pulse Rate 86 86 Respiratory Rate 28 H 20 34 H Blood Pressure 92/62 L Pulse Oximetry 97 99 98 05/10/18 07:59 05/10/18 11:33 Temperature Pulse Rate 92 H Respiratory Rate 33 H Blood Pressure Pulse Oximetry 98 Intake & Output 05/09/18 05/10/18 05/10/18 18:59 06:59 18:59 Intake Total 2788 / 2788 1260 / 1260 2655.1 / 2655.1 Output Total 225 / 225 320 / 320 Balance 2563 / 2563 940 / 940 2655.1 / 2655.1 Weight 73.8 kg Intake: IV 1750 / 1750 1160 / 1160 2655.1 / 2655.1 Versed Inj 50 mg In 50 ml @ 2 50 / 50 MG/HR 2 mls/hr IV.CONT TITRATE PRN Rx#:[id number] Sodium Bicarbonate 8.4% Inj 150 1000 / 1000 1000 / 1000 MEQ In Sterile Water for Inj 850 ML @ 75 mls/hr IV.CONT . [id number] [facility] Rx#:[id number] Maxipime Inj 2,000 MG In NS Inj 100 / 100 200 / 200 100 / 100 100 ML @ 200 mls/hr IV.SIG Q8H [facility] Rx#:[id number] Intralipid 20% Inj 250 ML @ 31. 250 / 250 25 mls/hr IV.SIG Q24H [facility] Rx#: [id number] Diflucan 400 mg Premix Bag 200 200 / 200 200 / 200 ML @ 100 mls/hr IV.SIG Q24H [facility] Rx#:[id number] Magnesium Sulfate Inj 2 GM In 100 / 100 100 / 100 NS Inj 96 ML @ 50 mls/hr IV.SIG ONCE ONE Rx#:[id number] MVI-12 Inj 5 ML Folvite Inj 0.5 1005.1 / 1005.1 MG In Clinimix E 4.25%/D25W Inj 1,000 ML @ 83 mls/hr IV.SIG Q12H [facility] Rx#:[id number] Levophed-Dextrose 4 mg/250 ml 250 / 250 Drip 4 mg In 250 ml @ 2 MCG/MIN 7.5 mls/hr IV.SIG TITRATE PRN Rx#:[id number] KCl 40 mEq Premix Inj 40 meq In 100 / 100 100 ml @ 25 mls/hr IV.SIG Q2H PRN Rx#:[id number] Potassium Phosphate Inj 30 MMOL 260 / 260 In NS Inj 250 ML @ 42 mls/hr IV.SIG UNSCH PRN Rx#:[id number] fentaNYL 10 mcg/mL Premix Drip 250 / 250 2,500 mcg In 250 ml @ 50 MCG/HR 5 mls/hr IV.SIG TITRATE PRN Rx #:[id number] Flagyl 500 MG Inj 100 ML @ 100 100 / 100 200 / 200 100 / 100 mls/hr IV.SIG Q8H [facility] Rx#: [id number] Tube Feeding 78 / 78 100 / 100 Water Bolus Amount 60 / 60 Other 100 / 100 Rbc As-3 Leukoreduced Unit 50 / 50 [id number] Rbc As-3 Leukoreduced Unit 50 / 50 [id number] Intake (Blood Product) Amt 800 / 800 Rbc As-3 Leukoreduced Unit 400 / 400 [id number] Rbc As-3 Leukoreduced Unit 400 / 400 [id number] Output: Urine Amount (Catheter) 175 / 175 300 / 300 Indwelling Urethral Catheter 175 / 175 300 / 300 Gastric Drainage 25 / 25 Right Nare Nasogastric Tube 25 / 25 Wound Drainage 25 / 25 20 / 20 # 1 Abdomen 25 / 25 20 / 20 Other: # Bowel Movements 0 05/02/18 23:50 Abscess - Abdominal Fungal Smear - Final No fungal elements seen 05/02/18 23:50 Abscess - Abdominal Fungal Culture - Preliminary No growth in 1 week 05/02/18 23:50 Abscess - Abdominal Acid Fast Bacilli Smear - Final No acid fast bacilli seen 05/02/18 23:50 Abscess - Abdominal Mycobacterial Culture - Preliminary No growth in 1 week 05/09/18 01:35 Blood - Line Aerobic Blood Culture - Preliminary No growth in 1 day 05/09/18 01:35 Blood - Line Anaerobic Blood Culture - Preliminary No growth in 1 day 05/09/18 00:26 Blood - Peripheral Aerobic Blood Culture - Preliminary No growth in 1 day 05/09/18 00:26 Blood - Peripheral Anaerobic Blood Culture - Preliminary QNS - See aerobic report. 05/09/18 15:35 Sputum - Endotracheal Gram Stain - Final 05/09/18 15:35 Sputum - Endotracheal Sputum Culture - Pending 05/03/18 09:12 Blood - Peripheral Aerobic Blood Culture - Final No growth in 5 days 05/03/18 09:12 Blood - Peripheral Anaerobic Blood Culture - Final No growth in 5 days 05/03/18 08:58 Blood - Peripheral Aerobic Blood Culture - Final No growth in 5 days 05/03/18 08:58 Blood - Peripheral Anaerobic Blood Culture - Final No growth in 5 days Lab - Hematology Results 05/09/18 05/10/18 04:30 05:47 WBC 28.3 H 21.9 H RBC 2.25 L 3.17 L Hgb 6.6 L* 9.6 L D Hct 19.7 L* 27.9 L MCV 87.4 D 88.0 MCH 29.2 30.3 MCHC 33.5 34.4 RDW 15.3 15.3 Plt Count 202 144 L MPV 9.0 9.5 Prelim Diff (Auto) Slide review pending Slide review pending Neut % (Auto) 90.5 H 91.3 H Lymph % (Auto) 5.1 L 4.7 L Hayes % (Auto) 2.8 1.8 Eos % (Auto) 0.9 1.0 Baso % (Auto) 0.7 1.2 Neut # (Auto) 25.6 H 20.0 H Lymph # (Auto) 1.4 1.0 Hayes # (Auto) 0.8 0.4 Eos # (Auto) 0.3 0.2 Baso # (Auto) 0.2 0.3 H WBC Differential Manual diff final Manual diff final Seg Neuts % (Manual) 87 H 94 H Band Neuts % (Manual) 8 H 2 Lymphocytes % (Manual) 2 L 1 L Monocytes % (Manual) 2 Eosinophils % (Manual) 1 Metamyelocytes % (Man) 2 H Myelocytes % (Man) 1 H Abs Neuts (Manual) 27.2 H 21.5 H Nucleated RBCs/100 WBC 1 H Differential Comment . . Toxic Granulation 1+ H Platelet Estimate Normal Low L Platelet Morphology Normal Normal Lab - Chemistry Results 05/09/18 05/09/18 05/10/18 04:30 04:30 00:11 Sodium 140 Potassium 3.5 Chloride 108 H Carbon Dioxide 23.5 Anion Gap 9 BUN 16 Creatinine 0.73 Estimated GFR 87 L POC Glucose 242 H Random Glucose 114 H Calcium 6.9 L* Prot Corrected Calcium 8.5 Phosphorus 2.4 L Magnesium 1.2 L Total Bilirubin 0.4 AST 44 H ALT 11 Alkaline Phosphatase 146 H Total Protein 4.2 L Albumin 0.8 L Triglycerides 133 Lipase 2190 H 05/10/18 05/10/18 05/10/18 05:47 05:47 13:10 Sodium 140 Potassium 2.9 L* Chloride 105 Carbon Dioxide 23.9 Anion Gap 11 BUN 16 Creatinine 0.97 Estimated GFR 63 L POC Glucose 255 H Random Glucose 339 H D Calcium 6.8 L* Prot Corrected Calcium 8.3 L Phosphorus Magnesium 1.5 Total Bilirubin AST ALT Alkaline Phosphatase Total Protein 4.3 L Albumin Triglycerides Lipase 3105 H Imaging: ITS Impressions Abdomen/Pelvis CT 05/02/18 15:10 CONCLUSION: 1. Anterior abdominal wall hernia containing a loop of small bowel with air and apparent surrounding inflammatory change. There is an abnormal bowel gas pattern and this is of concern for acute obstruction with possible strangulation. 2. New large cystic structure in the pelvis with air-fluid levels as well as additional cystic collections with air-fluid levels with represent additional phlegmon or abscesses. 3. Acute pancreatitis again noted with enlarged head of the pancreas with multiple calcifications and indistinctness. There are new cystic structures within the pancreas. There are multiple calcifications again noted. Pancreatic duct remains dilated. 4. Cirrhotic appearing liver with surrounding ascites. 5. Tiny gallstone again noted. Chest X-Ray 05/10/18 09:25 CONCLUSION: New Line in good position from the right without pneumothorax. Physical Exam: GENERAL: on sedation, on the vent, awakens when stimulated. She is not in respiratory distress. SKIN: Cool and dry. No generalized rash, no ecchymoses and no evidence of embolic lesions. HEAD: Atraumatic. Normocephalic. No temporal wasting, or tenderness. EYES: [place] conjunctiva. No petechia or hemorrhage. Pupils equal, round and reactive to light. No scleral icterus. No injection or drainage. EARS, NOSE AND THROAT: Nose without bleeding or purulent nasal discharge, has NGT in place. She is orally intubated.. NECK: Trachea midline. Supple and not tender, no meningeal signs CARDIOVASCULAR: Regular rate and rhythm. No murmurs, rubs or gallops heard RESPIRATORY: Coarse breath sounds bilaterally. No rales, wheezing or rhonchi ABDOMEN: Mildly distended, has midline incision with dry dressing. One ILA in LLQ with serous fluid. Tender on palpation. Bowel sounds are hypoactive. EXTREMITIES: No clubbing, cyanosis, or edema. Well perfused and warm. NEUROLOGICAL: Sedated PSYCHIATRIC: Unable to assess LINE: LSC line No evidence of infection Assessment and Plan - Plan Impression Sepsis with shock due to intraabdominal process Multiple intraabdominal and pelvic abscess, S/P lap and drainage of abscess - S/P reexploration and closure Respiratory failure New bilateral pulmonary infiltrates - ?PNA - ?ARDS Leukocytosis Recommendation Continue IV Vanco Continue Cefepime IV Continue Flagyl IV for anaerobes. Continue Diflucan GI yeast coverage. Follow C/S and adjust Abx Monitor progress closely Follow CBC D/W RN
[2018-05-10] MEDS: Vancomycin Inj 1,250 MG in Sodium Chlor 0.9% Inj 250 ML IV.SIG SCH (17:23)
[2018-05-11] MEDS: Insulin NovoLOG Aspart Correctional Sugar Inj SQ SCH ×5 (00:36→23:14)
[2018-05-11] MEDS: Oral Hygiene Kit OROPHARYNG SCH ×5 (00:37→23:14)
[2018-05-11] MEDS: fentaNYL 10 mcg/mL Premix Drip 2,500 MCG/250 ML BAG IV.SIG PRN ×2 (01:15→23:13)
[2018-05-11] MEDS: Midazolam 50 MG/50 ML Inj 50 MG/50 ML BAG IV.CONT PRN ×3 (01:16→23:57)
[2018-05-11] MEDS: Chlorhexidine Gluconate 2% 1 Pack (2 Cloths) TOPICAL SCH (03:49)
[2018-05-11 06:00] LABS: Baso # (Auto) 0.1 th/mm3 (0.0-0.2); Baso % (Auto) 0.6 % (0.0-2.0); Eos # (Auto) 0.3 th/mm3 (0.0-0.4); Eos % (Auto) 1.7 % (0.0-4.0); Hematocrit 26.5 % (35.0-46.0); Hemoglobin 8.9 gm/dL (11.6-15.3); Lymph # (Auto) 1.6 th/mm3 (1.0-4.8); Lymph % (Auto) 8.3 % (9.0-44.0); Mean Corpuscular HGB Conc 33.5 % (32.0-36.0); Mean Corpuscular Hemoglobin 29.9 pg (27.0-34.0); Mean Corpuscular Volume 89.3 fL (80.0-100.0); Mean Platelet Volume 9.7 fL (7.0-11.0); Mono # (Auto) 0.7 th/mm3 (0.0-0.9); Mono % (Auto) 3.8 % (0.0-8.0); Neut # (Auto) 16.1 th/mm3 (1.8-7.7); Neut % (Auto) 85.6 % (16.0-70.0); Platelet Count 89 th/mm3 (150-450); Red Blood Count 2.97 mil/mm3 (4.00-5.30); Red Cell Distribution Width 15.5 % (11.6-17.2); White Blood Count 18.8 th/mm3 (4.0-11.0)
[2018-05-11 06:29] LABS: Albumin 0.7 g/dL (3.4-5.0); Carbon Dioxide 22.6 meq/L (21.0-32.0); Magnesium 1.8 mg/dL (1.5-2.5); Potassium 3.9 meq/L (3.5-5.1)
--- NOTE | 2018-05-11 06:54 | P.PNCC ---
Subjective Subjective Remarks/Hospital Course: 42 year old female admitted for an evaluation of abdominal pain. The abdominal pain has acutely worsened today. Her pain pain has been present intermittently for about 2 weeks but it was not as severe in nature. She has been into the hospital previously and was told she has an abdominal ventral hernia. At that time there was no acute concerns or evidence of strangulation/incarceration. The CAT scan obtained in the emergency department showed large cystic structure in the pelvis with air-fluid levels as well as additional cystic collections with air-fluid levels which represent additional phlegmon or abscesses. She was taken emergently to operating room by Dr. Smith with finding of a fair amount of old blood that was in the abdomen and then down the pelvis as well as a fairly sizable abscess. She has had an abscess around the liver, which was evacuated and irrigated. A portion of the omentum was removed because it was partially necrotic. A second abscess was identified in a portion of the pouch of Casey, which was evacuated, cultured as well. The abdomen was packed down the pelvis with two pads and then placed the VAC ABThera temporary closure device as the patient is planned to be brought back to operating room after stabilization in the intensive care unit. SUBJ 05/04: Remains intubated sedated remains critical. Currently on Dontrell- Synephrine to maintain map above 65. Hemoglobin came back at 6.2 ordered to receive 2 units of PRBC. White count is 28,000. Plan for OR 4 PM today. 05/05: Remains intubated and mechanically ventilated. Requiring vasopressor therapy with Dontrell-Synephrine to maintain suitable mean arterial pressure. White count markedly elevated. Abdominal closure yesterday. 05/06: Still requiring vasopressor support to maintain suitable blood pressure. Gas exchange has improved and we will start spontaneous breathing trials again today. White count declining. Renal function acceptable after an additional 3 L of saline were required yesterday. 05/07: During her period of florid sepsis she required considerable intravenous fluid in order to preserve renal function. It is now time to remove some of that fluid and she responded well to diuretics. Persistent leukocytosis is worrisome but overall she appears to be improving. Update 1200 hours: The patient's clinical condition has deteriorated over the past 6 hours, manifesting largely as respiratory distress and hypoxemia. It is tempting to attribute this largely to fluid overload following her extensive resuscitation but the declining bicarb level may well indicate worsening sepsis. 05/08: Continued deterioration and respiratory function overnight. This morning she is in full blown ARDS and will require reintubation and elevated airway pressures. We will obtain sputum on intubation and discuss antibiotic therapy with the infectious disease service. 05/09: Remains in ARDS. Oxygen diffusion gradient has been reduced by elevated mean airway pressures. Still vasopressor dependent and now anemic. No obvious source of blood loss. Remains critically ill and unstable. 05/10: Moves 4 limbs and responds. Gas exchange remains impaired but a little better than yesterday. Respiratory status remains unstable. Persistent elevation of lipase is concerning and it may be necessary to convert to parenteral nutrition. No evidence of bleeding. Will need to remove central line today 05/11: Still requiring vasopressor therapy undoubtedly due to low level ongoing sepsis. New lines have been placed, chest x-ray attempting to clear. Will try to lower airway pressures and perhaps convert back to conventional ventilation, allowing us to promote a diuresis. Objective Vital Signs / I&O: Vital Signs 05/10/18 07:53 05/10/18 07:59 05/10/18 08:00 Temperature 98.1 F Pulse Rate 92 H 92 H Respiratory Rate 34 H 33 H 34 H Blood Pressure 112/64 Pulse Oximetry 98 05/10/18 11:33 05/10/18 12:00 05/10/18 15:00 Temperature 98.6 F Pulse Rate 115 H 113 H Respiratory Rate 32 H 33 H Blood Pressure 96/67 L Pulse Oximetry 98 05/10/18 16:00 05/10/18 16:10 05/10/18 19:40 Temperature 99.3 F Pulse Rate 114 H 110 H Respiratory Rate 22 33 H 37 H Blood Pressure 92/54 L Pulse Oximetry 98 95 05/10/18 20:00 05/10/18 23:44 05/11/18 00:00 Temperature 99.6 F 99.3 F Pulse Rate 108 H 102 H Respiratory Rate 26 H 16 24 Blood Pressure 94/64 L 92/62 L Pulse Oximetry 97 99 99 05/11/18 02:58 05/11/18 04:00 05/11/18 04:10 Temperature 98.6 F Pulse Rate 98 H 96 H Respiratory Rate 15 18 15 Blood Pressure 98/58 L Pulse Oximetry 98 98 Intake & Output 0805/10/18 05/11/18 06:59 18:59 06:59 Intake Total 1260 / 1260 3448.6 / 3448.6 1812 / 1812 Output Total 320 / 320 275 / 275 345 / 345 Balance 940 / 940 3173.6 / 3173.6 1467 / 1467 Weight 73.8 kg 80.7 kg Intake: IV 1160 / 1160 3267.6 / 3267.6 1700 / 1700 Versed Inj 50 mg In 50 ml @ 2 50 / 50 50 / 50 MG/HR 2 mls/hr IV.CONT TITRATE PRN Rx#:[id number] Sodium Bicarbonate 8.4% Inj 150 1000 / 1000 MEQ In Sterile Water for Inj 850 ML @ 75 mls/hr IV.CONT . [id number] [facility] Rx#:[id number] Maxipime Inj 2,000 MG In NS Inj 200 / 200 100 / 100 200 / 200 100 ML @ 200 mls/hr IV.SIG Q8H [facility] Rx#:[id number] Intralipid 20% Inj 250 ML @ 31. 250 / 250 250 / 250 25 mls/hr IV.SIG Q24H [facility] Rx#: [id number] Diflucan 400 mg Premix Bag 200 200 / 200 ML @ 100 mls/hr IV.SIG Q24H [facility] Rx#:[id number] Magnesium Sulfate Inj 2 GM In 100 / 100 NS Inj 96 ML @ 50 mls/hr IV.SIG ONCE ONE Rx#:[id number] MVI-12 Inj 5 ML Folvite Inj 0.5 1005.1 / 1005.1 500 / 500 MG In Clinimix E 4.25%/D25W Inj 1,000 ML @ 40 mls/hr IV.SIG Q12H [facility] Rx#:[id number] Levophed-Dextrose 4 mg/250 ml 250 / 250 250 / 250 Drip 4 mg In 250 ml @ 2 MCG/MIN 7.5 mls/hr IV.SIG TITRATE PRN Rx#:[id number] KCl 40 mEq Premix Inj 40 meq In 200 / 200 100 ml @ 25 mls/hr IV.SIG Q2H PRN Rx#:[id number] Potassium Phosphate Inj 30 MMOL 260 / 260 In NS Inj 250 ML @ 42 mls/hr IV.SIG UNSCH PRN Rx#:[id number] Vancomycin Inj 1,250 MG In NS 262.5 / 262.5 Inj 250 ML @ 250 mls/hr IV.SIG Q18H [facility] Rx#:[id number] fentaNYL 10 mcg/mL Premix Drip 250 / 250 250 / 250 2,500 mcg In 250 ml @ 50 MCG/HR 5 mls/hr IV.SIG TITRATE PRN Rx #:[id number] Flagyl 500 MG Inj 100 ML @ 100 200 / 200 100 / 100 200 / 200 mls/hr IV.SIG Q8H [facility] Rx#: [id number] Tube Feeding 100 / 100 121 / 121 112 / 112 Water Bolus Amount 60 / 60 Output: Urine Amount (Catheter) 300 / 300 250 / 250 325 / 325 Indwelling Urethral Catheter 300 / 300 250 / 250 325 / 325 Wound Drainage 20 / 20 25 / 25 20 / 20 # 1 Abdomen 20 / 20 25 / 25 20 / 20 Other: # Bowel Movements 0 Result Diagrams: 05/10/18 05:47 05/11/18 05:25 Objective Remarks: GENERAL: 42 y/o woman, sedated, mechanically ventilated. SKIN: No generalized rash, no ecchymoses, generally edematous HEAD: Atraumatic. Normocephalic. EYES: Pupils equal, round and reactive to light. No conjunctival icterus. No injection or drainage. ENT: NGT in place. Oral tracheal intubation. NECK: Trachea midline. Supple CARDIOVASCULAR: Regular rate and rhythm. No murmurs, rubs or gallops heard. On vasopressor infusion to maintain map >65 RESPIRATORY: Coarse breath sounds bilaterally. Few scattered rhonchi. ABDOMEN: Closed abdomen. Cristobal-Timmons drains draining serous fluid. Some serous drainage from lower midline wound EXTREMITIES: No clubbing, cyanosis. Extremities well perfused, considerable edema in extremities. NEUROLOGICAL: Sedated for vent synchrony. Withdraws 4 limbs to noxious stimulation. Opens eyes to voice. VIJAYA. Follows commands when sedation is lightened. Assessment and Plan - Assessment and Plan Plan: Respiratory failure -Post operative and secondary to severe sepsis -Patient's plans to return to operating room today -Continue mechanical ventilation -SBT daily when hemodynamically stable, and abdomen is closed -Vent bundle. DuoNeb's as needed -Start spontaneous breathing trials again today -Extubated May 06 -She has developed ARDS and required reintubation on May 08. APRV mode required. FiO2 100%. -Reduce pressure high to 28, increase pressure low to 5. Decrease release time to 0.6. -Converted back to conventional mechanical ventilation with elevated PEEP. Incarcerated strangulated Ventral hernia Abdominal abscesses -Status post exploratory laparotomy and washout -Follow-up cultures, negative to date -Empiric antibiotics and antifungal (IV Vanco, IV cefepime, IV Flagyl, IV Diflucan), adjust per ID service -ID consultation-Dr. Aguilar -Further management per general surgery -Pain controlled with fentanyl infusion and as needed IV push Septic shock -Aggressive IV fluid hydration -Dontrell-Synephrine as needed to keep map above 65 -Antibiotics as above -Probable pelvic inflammatory disease -Continued need for low-dose Dontrell-Synephrine 05/07 -Converted to norepinephrine for more vigorous support -As of May 11, still vasopressor dependent. Anemia requiring transfusion -Hemoglobin 6.2, stat 2 units PRBC ordered. DVT GI prophylaxis -Teds SCDs -Pharmacological DVT prophylaxis per surgeon -Manolo Overall impression: This woman remains critically ill following drainage of gram -negative intra-abdominal abscesses. The abdomen was closed 05/04 and the patient remains with low level sepsis, requiring vasopressor support with Dontrell- Synephrine. She is at high risk for subsequent intra-abdominal infections. Noteworthy is her recent clinical deterioration, she has now become unstable from a respiratory and hemodynamic standpoint and has required increased vasopressor support. Reintubation and mechanical ventilation was required as she continued to deteriorate in sepsis and ARDS. She remains critically ill and hemodynamically unstable but gas exchange has started to improve fine. Critical care 48 minutes aside from procedures
[2018-05-11 07:00] LABS: Total Protein 4.5 g/dL (6.4-8.2)
[2018-05-11 07:10] LABS: Eosinophils 1 % (0-4); Lymphocytes 2 % (9-44); Monocytes 1 % (0-8); Promyelocyte 2 % (0-0); Toxic Granulation 1+
[2018-05-11 07:11] LABS: Dimorphic RBC Present
[2018-05-11] MEDS: Albumin Human 25% Inj 100 ML IV.SIG SCH ×3 (07:54→22:34)
[2018-05-11] MEDS: Chlorhexidine 0.12% Oral Kit 15 ML UDC OROPHARYNG SCH ×2 (07:56→20:37)
[2018-05-11] MEDS: Multivitamin Inj 5 ML, Folic Acid Inj 0.5 MG in AA 4.25 %/D25W - Electrolytes 1,000 ML IV.SIG SCH ×2 (08:04→19:43)
[2018-05-11] MEDS: Insulin Detemir Inj 1,000 UNIT/10 ML Vial SQ SCH ×2 (08:05→20:49)
[2018-05-11] MEDS: Vancomycin Inj 1,250 MG in Sodium Chlor 0.9% Inj 250 ML IV.SIG SCH (08:05)
[2018-05-11] MEDS: Famotidine PF Inj 20 MG/2 ML Vial IV.PUSH SCH ×2 (08:05→20:37)
--- NOTE | 2018-05-11 10:58 | P.PNGS ---
Subjective Interval history: Intubated/Sedated TEJA Vazquez at bedside Physical Exam Vital signs: Vital Signs 05/10/18 11:33 05/10/18 12:00 05/10/18 15:00 Temperature 98.6 F Pulse Rate 115 H 113 H Respiratory Rate 32 H 33 H Blood Pressure 96/67 L Pulse Oximetry 98 05/10/18 16:00 05/10/18 16:10 05/10/18 19:40 Temperature 99.3 F Pulse Rate 114 H 110 H Respiratory Rate 22 33 H 37 H Blood Pressure 92/54 L Pulse Oximetry 98 95 05/10/18 20:00 05/10/18 23:44 05/11/18 00:00 Temperature 99.6 F 99.3 F Pulse Rate 108 H 102 H Respiratory Rate 26 H 16 24 Blood Pressure 94/64 L 92/62 L Pulse Oximetry 97 99 99 05/11/18 02:58 05/11/18 04:00 05/11/18 04:10 Temperature 98.6 F Pulse Rate 98 H 96 H Respiratory Rate 15 18 15 Blood Pressure 98/58 L Pulse Oximetry 98 98 05/11/18 08:00 05/11/18 08:34 05/11/18 10:00 Temperature 98.1 F Pulse Rate 78 88 90 Respiratory Rate 16 28 H Blood Pressure 115/71 Pulse Oximetry 99 Intake & Output 05/10/18 05/11/18 05/11/18 18:59 06:59 18:59 Intake Total 3448.6 / 3448.6 1812 / 1812 961.5 / 961.5 Output Total 275 / 275 345 / 345 Balance 3173.6 / 3173.6 1467 / 1467 961.5 / 961.5 Weight 80.7 kg Intake: IV 3267.6 / 3267.6 1700 / 1700 562.5 / 562.5 Versed Inj 50 mg In 50 ml @ 2 50 / 50 50 / 50 MG/HR 2 mls/hr IV.CONT TITRATE PRN Rx#:[id number] Sodium Bicarbonate 8.4% Inj 150 1000 / 1000 MEQ In Sterile Water for Inj 850 ML @ 75 mls/hr IV.CONT . [id number] [facility] Rx#:[id number] Flexbumin 25% Inj 100 ML @ 60 100 / 100 mls/hr IV.SIG Q8H [facility] Rx#: [id number] Maxipime Inj 2,000 MG In NS Inj 100 / 100 200 / 200 100 ML @ 200 mls/hr IV.SIG Q8H [facility] Rx#:[id number] Intralipid 20% Inj 250 ML @ 31. 250 / 250 25 mls/hr IV.SIG Q24H [facility] Rx#: [id number] Diflucan 400 mg Premix Bag 200 200 / 200 200 / 200 ML @ 100 mls/hr IV.SIG Q24H [facility] Rx#:[id number] Magnesium Sulfate Inj 2 GM In 100 / 100 NS Inj 96 ML @ 50 mls/hr IV.SIG ONCE ONE Rx#:[id number] MVI-12 Inj 5 ML Folvite Inj 0.5 1005.1 / 1005.1 500 / 500 MG In Clinimix E 4.25%/D25W Inj 1,000 ML @ 40 mls/hr IV.SIG Q12H [facility] Rx#:[id number] Levophed-Dextrose 4 mg/250 ml 250 / 250 250 / 250 Drip 4 mg In 250 ml @ 2 MCG/MIN 7.5 mls/hr IV.SIG TITRATE PRN Rx#:[id number] KCl 40 mEq Premix Inj 40 meq In 200 / 200 100 ml @ 25 mls/hr IV.SIG Q2H PRN Rx#:[id number] Vancomycin Inj 1,250 MG In NS 262.5 / 262.5 262.5 / 262.5 Inj 250 ML @ 250 mls/hr IV.SIG Q18H [facility] Rx#:[id number] fentaNYL 10 mcg/mL Premix Drip 250 / 250 2,500 mcg In 250 ml @ 50 MCG/HR 5 mls/hr IV.SIG TITRATE PRN Rx #:[id number] Flagyl 500 MG Inj 100 ML @ 100 100 / 100 200 / 200 mls/hr IV.SIG Q8H [facility] Rx#: [id number] Tube Feeding 121 / 121 112 / 112 Water Bolus Amount 60 / 60 Intake (Blood Product) Amt 399 / 399 Rbc As-3 Leukoreduced Unit 399 / 399 [id number] Output: Urine Amount (Catheter) 250 / 250 325 / 325 Indwelling Urethral Catheter 250 / 250 325 / 325 Wound Drainage / 25 20 / 20 # 1 Abdomen 20 / Other: # Bowel Movements 0 Narrative: Intubated/sedated Cardio: RRR Resp: CTAB Abd: tight; midline incision with clear serous drainage; dressing changed Severe generalized edema - Urinary Catheter Management Indwelling Urethral Catheter Cath placed during this visit: yes Reason for continuing: Hourly intake/output Insertion date: 05/03/18 Assessment and Plan - Assessment (1) Pelvic abscess in female Code(s): N73.9 - Female pelvic inflammatory disease, unspecified Status: Acute (2) ARDS (adult respiratory distress syndrome) Code(s): J80 - Acute respiratory distress syndrome Status: Acute (3) Intra-abdominal abscess Code(s): K65.1 - Peritoneal abscess Status: Acute Plan: 42 year old female s/p washout of abdomen and closure (Dr. Smith) ; bilateral salpingo-oophorectomy (Dr. Escalera); ureteral stents (Dr. Beckwith) -High residuals from TF; stop TF -Increase TPN -Continue to wean vent as tolerated -Change midline incision daily and PRN for saturation -Discussed with TEJA Vazquez at bedside (4) Acute on chronic pancreatitis Code(s): K85.90 - Acute pancreatitis without necrosis or infection, unspecified ; K86.1 - Other chronic pancreatitis Status: Chronic (5) H/O brain surgery Code(s): Z98.890 - Other specified postprocedural states Status: Chronic
--- NOTE | 2018-05-11 12:57 | P.DIET ---
Nutritional Evaluation Type of nutrition evaluation: follow-up Nutrition consult regarding: Tube Feeding, TPN/PPN Objective - Diagnosis Abdominal Ventral Wall Hernia Incarceration - Objective % IBW: 126 (IBW = 110#) Body Weight Used for Calculations: Actual (63.1 kg) Energy Needs - Lower Range (kCal/kg): 25 Energy Needs - Upper Range (kCal/kg): 30 Lower Limit kCal/kg (kCals): 1,578 Upper Limit kCal/kg (kCals): 1,893 Lower Limit Protein Factor (Grams per Kg): 1.0 Upper Limit Protein Factor (Grams per Kg): 1.5 Lower Protein Needs (Protein): 63 Upper Protein Needs (Protein): 95 Dietitian Reviewed in Medical Record: Curent medications, Intake & Output, Labs , Medical history, TPN/PPN, Tube feeding Diet Order: NPO Objective Comments: 05/02 exp lap, partial omenctomy, abd wound vac 05/04 exp lap, rigid sigmoidoscopy, abdominal wash out, repair of incisional hernia Assessment Assessment: Pt remains vented and not tolerating trickle feed. Trickle TF of Jevity 1.5 @ 10 mls/hr ordered. Receiving TPN/lipids: Clinimix E 4.25/25 @ 50 mls/hr with 20 % lipids 250 mls/day. Recommend increase TPN rate to 65 mls/hr to provide 1591 kcals and 66 gms protein. Lipds will provide an additional 500 kcals per day. If pt tolerates trickle TF, lipids will not be needed. Request weekly TG while pt is on TPN. Significant wt changes noted. Recommendations: TPN: Clinimix E 4.25/25 @ 65 mls/hr LIPIDS: 20% lipids 250 mls/hr Trickle Feeds: Jevity 1.5 @ 10 mls/hr as tolerated. Goal 50 mls/hr when appropriate. Dietitian to Monitor: Lab values, Intake & Output, Tube feeding tolerance, TPN/ PPN tolerance, Weight change, Medical course
[2018-05-11 18:53] LABS: Potassium 3.5 meq/L (3.5-5.1)
[2018-05-11 18:54] LABS: Magnesium 1.7 mg/dL (1.5-2.5)
[2018-05-11] MEDS: Potassium Chlor 40 mEq Premix 40 MEQ/100 ML PIGGYBACK IV.SIG PRN (20:40)
[2018-05-12] MEDS: Vancomycin Inj 1,250 MG in Sodium Chlor 0.9% Inj 250 ML IV.SIG SCH ×2 (02:01→22:04)
[2018-05-12] MEDS: Chlorhexidine Gluconate 2% 1 Pack (2 Cloths) TOPICAL SCH (03:16)
[2018-05-12] MEDS: Oral Hygiene Kit OROPHARYNG SCH ×3 (03:16→17:20)
[2018-05-12 03:49] LABS: Baso # (Auto) 0.1 th/mm3 (0.0-0.2); Baso % (Auto) 1.2 % (0.0-2.0); Eos # (Auto) 0.3 th/mm3 (0.0-0.4); Eos % (Auto) 2.5 % (0.0-4.0); Hematocrit 24.7 % (35.0-46.0); Hemoglobin 8.2 gm/dL (11.6-15.3); Lymph % (Auto) 8.9 % (9.0-44.0); Mean Corpuscular HGB Conc 33.2 % (32.0-36.0); Mean Corpuscular Hemoglobin 30.4 pg (27.0-34.0); Mean Corpuscular Volume 91.6 fL (80.0-100.0); Mean Platelet Volume 10.4 fL (7.0-11.0); Mono # (Auto) 0.4 th/mm3 (0.0-0.9); Mono % (Auto) 3.9 % (0.0-8.0); Neut # (Auto) 9.1 th/mm3 (1.8-7.7); Neut % (Auto) 83.5 % (16.0-70.0); Platelet Count 64 th/mm3 (150-450); Red Cell Distribution Width 15.3 % (11.6-17.2); White Blood Count 10.9 th/mm3 (4.0-11.0)
[2018-05-12 03:52] LABS: Anion Gap 7 meq/L (5-15); Blood Urea Nitrogen 22 mg/dL (7-18); Calcium 7.5 mg/dL (8.5-10.1); Carbon Dioxide 24.6 meq/L (21.0-32.0); Chloride 110 meq/L (98-107); Glucose,Random 114 mg/dL (74-106); Magnesium 1.6 mg/dL (1.5-2.5); Potassium 3.9 meq/L (3.5-5.1); Sodium 142 meq/L (136-145)
[2018-05-12 03:53] LABS: Lipase 1557 U/L (73-393)
[2018-05-12 04:20] LABS: Platelet Morphology Normal (Normal)
[2018-05-12] MEDS: Insulin NovoLOG Aspart Correctional Sugar Inj SQ SCH ×3 (05:05→17:21)
[2018-05-12] MEDS: Albumin Human 25% Inj 100 ML IV.SIG SCH ×3 (06:28→22:11)
[2018-05-12] MEDS: Famotidine PF Inj 20 MG/2 ML Vial IV.PUSH SCH ×2 (08:53→20:12)
[2018-05-12] MEDS: Insulin Detemir Inj 1,000 UNIT/10 ML Vial SQ SCH ×2 (08:54→20:13)
[2018-05-12] MEDS: Chlorhexidine 0.12% Oral Kit 15 ML UDC OROPHARYNG SCH ×2 (08:56→20:13)
--- NOTE | 2018-05-12 08:59 | P.PNCC ---
Subjective Subjective Remarks/Hospital Course: 42 year old female admitted for an evaluation of abdominal pain. The abdominal pain has acutely worsened today. Her pain pain has been present intermittently for about 2 weeks but it was not as severe in nature. She has been into the hospital previously and was told she has an abdominal ventral hernia. At that time there was no acute concerns or evidence of strangulation/incarceration. The CAT scan obtained in the emergency department showed large cystic structure in the pelvis with air-fluid levels as well as additional cystic collections with air-fluid levels which represent additional phlegmon or abscesses. She was taken emergently to operating room by Dr. Smith with finding of a fair amount of old blood that was in the abdomen and then down the pelvis as well as a fairly sizable abscess. She has had an abscess around the liver, which was evacuated and irrigated. A portion of the omentum was removed because it was partially necrotic. A second abscess was identified in a portion of the pouch of Casey, which was evacuated, cultured as well. The abdomen was packed down the pelvis with two pads and then placed the VAC ABThera temporary closure device as the patient is planned to be brought back to operating room after stabilization in the intensive care unit. SUBJ 05/04: Remains intubated sedated remains critical. Currently on Dontrell- Synephrine to maintain map above 65. Hemoglobin came back at 6.2 ordered to receive 2 units of PRBC. White count is 28,000. Plan for OR 4 PM today. 05/05: Remains intubated and mechanically ventilated. Requiring vasopressor therapy with Dontrell-Synephrine to maintain suitable mean arterial pressure. White count markedly elevated. Abdominal closure yesterday. 05/06: Still requiring vasopressor support to maintain suitable blood pressure. Gas exchange has improved and we will start spontaneous breathing trials again today. White count declining. Renal function acceptable after an additional 3 L of saline were required yesterday. 05/07: During her period of florid sepsis she required considerable intravenous fluid in order to preserve renal function. It is now time to remove some of that fluid and she responded well to diuretics. Persistent leukocytosis is worrisome but overall she appears to be improving. Update 1200 hours: The patient's clinical condition has deteriorated over the past 6 hours, manifesting largely as respiratory distress and hypoxemia. It is tempting to attribute this largely to fluid overload following her extensive resuscitation but the declining bicarb level may well indicate worsening sepsis. 05/08: Continued deterioration and respiratory function overnight. This morning she is in full blown ARDS and will require reintubation and elevated airway pressures. We will obtain sputum on intubation and discuss antibiotic therapy with the infectious disease service. 05/09: Remains in ARDS. Oxygen diffusion gradient has been reduced by elevated mean airway pressures. Still vasopressor dependent and now anemic. No obvious source of blood loss. Remains critically ill and unstable. 05/10: Moves 4 limbs and responds. Gas exchange remains impaired but a little better than yesterday. Respiratory status remains unstable. Persistent elevation of lipase is concerning and it may be necessary to convert to parenteral nutrition. No evidence of bleeding. Will need to remove central line today 05/11: Still requiring vasopressor therapy undoubtedly due to low level ongoing sepsis. New lines have been placed, chest x-ray attempting to clear. Will try to lower airway pressures and perhaps convert back to conventional ventilation, allowing us to promote a diuresis. 05/12: We continued to lower mean airway pressure while maintaining recruitment. Gas exchange remains acceptable. Good response to diuretic therapy with 2 L negative balance yesterday. Finally off vasopressor support indicating resolution of sepsis. Lipase remains elevated, follow closely. Objective Vital Signs / I&O: Vital Signs 05/11/18 10:00 05/11/18 12:00 05/11/18 12:40 Temperature 97.7 F Pulse Rate 90 83 Respiratory Rate 13 17 Blood Pressure 118/83 Pulse Oximetry 99 99 05/11/18 14:00 05/11/18 15:36 05/11/18 16:00 Temperature 97.7 F Pulse Rate 86 82 86 Respiratory Rate 36 H 13 Blood Pressure 141/93 H Pulse Oximetry 99 99 05/11/18 18:00 05/11/18 19:47 05/11/18 20:00 Temperature 96.8 F L Pulse Rate 96 H 83 88 Respiratory Rate 14 18 Blood Pressure 106/74 Pulse Oximetry 99 99 05/12/18 00:00 05/12/18 00:03 05/12/18 04:00 Temperature 96.9 F L 97.5 F L Pulse Rate 92 H 100 H Respiratory Rate 20 14 20 Blood Pressure 108/72 103/65 Pulse Oximetry 99 99 05/12/18 04:09 05/12/18 06:00 05/12/18 08:15 Temperature Pulse Rate 105 H 108 H 110 H Respiratory Rate 14 26 H Blood Pressure Pulse Oximetry 99 99 Intake & Output 05/11/18 05/12/18 05/12/18 18:59 06:59 18:59 Intake Total 2051.5 / 2051.5 1672.5 / 1672.5 Output Total 2920 / 2920 2895 / 2895 Balance -868.5 / -868.5 -1222.5 / -1222.5 Weight 78.8 kg Intake: IV 1562.5 / 1562.5 1612.5 / 1612.5 Versed Inj 50 mg In 50 ml @ 2 50 / 50 50 / 50 MG/HR 2 mls/hr IV.CONT TITRATE PRN Rx#:[id number] Flexbumin 25% Inj 100 ML @ 60 200 / 200 100 / 100 mls/hr IV.SIG Q8H [facility] Rx#: [id number] Maxipime Inj 2,000 MG In NS Inj 100 / 100 200 / 200 100 ML @ 200 mls/hr IV.SIG Q8H [facility] Rx#:[id number] Intralipid 20% Inj 250 ML @ 31. 250 / 250 25 mls/hr IV.SIG Q24H [facility] Rx#: [id number] Diflucan 400 mg Premix Bag 200 200 / 200 200 / 200 ML @ 100 mls/hr IV.SIG Q24H [facility] Rx#:[id number] MVI-12 Inj 5 ML Folvite Inj 0.5 650 / 650 MG In Clinimix E 4.25%/D25W Inj 1,000 ML @ 40 mls/hr IV.SIG Q12H [facility] Rx#:[id number] KCl 40 mEq Premix Inj 40 meq In 100 / 100 100 ml @ 25 mls/hr IV.SIG UNSCH PRN Rx#:[id number] Vancomycin Inj 1,250 MG In NS 262.5 / 262.5 262.5 / 262.5 Inj 250 ML @ 250 mls/hr IV.SIG Q18H [facility] Rx#:[id number] fentaNYL 10 mcg/mL Premix Drip 250 / 250 2,500 mcg In 250 ml @ 50 MCG/HR 5 mls/hr IV.SIG TITRATE PRN Rx #:[id number] Flagyl 500 MG Inj 100 ML @ 100 100 / 100 200 / 200 mls/hr IV.SIG Q8H [facility] Rx#: [id number] Tube Feeding 30 / 30 Tube Irrigant 60 / 60 Water Bolus Amount 60 / 60 Intake (Blood Product) Amt 399 / 399 Rbc As-3 Leukoreduced Unit 399 / 399 [id number] Output: Stool 0 / 0 Estimated Blood Loss 250 / 250 Urine Amount (Catheter) 2450 / 2450 2750 / 2750 Indwelling Urethral Catheter 2450 / 2450 2750 / 2750 Gastric Drainage 200 / 200 125 / 125 Right Nare Nasogastric Tube 200 / 200 125 / 125 Wound Drainage 20 / 20 20 / 20 # 1 Abdomen 20 / 20 20 / 20 Other: # Bowel Movements 0 Result Diagrams: 05/12/18 03:30 05/12/18 03:30 Objective Remarks: GENERAL: 42 y/o woman, sedated, mechanically ventilated. SKIN: No generalized rash, no ecchymoses, generally edematous HEAD: Atraumatic. Normocephalic. EYES: Pupils equal, round and reactive to light. No conjunctival icterus. No injection or drainage. ENT: NGT in place. Oral tracheal intubation. NECK: Trachea midline. Supple CARDIOVASCULAR: Regular rate and rhythm. No murmurs, rubs or gallops heard. Off vasopressor infusion to maintain map >65 RESPIRATORY: Coarse breath sounds bilaterally. Few scattered rhonchi. Good bilateral air entry. ABDOMEN: Closed abdomen. Cristobal-Timmons drains draining serous fluid. Some serous drainage from lower midline wound EXTREMITIES: No clubbing, cyanosis. Extremities well perfused, considerable edema in extremities, improving. NEUROLOGICAL: Sedated lightly for vent synchrony. Withdraws 4 limbs to noxious stimulation. Opens eyes to voice. VIJAYA. Follows commands when sedation is lightened. Assessment and Plan - Assessment and Plan Plan: Respiratory failure -Post operative and secondary to severe sepsis -Patient's plans to return to operating room today -Continue mechanical ventilation -SBT daily when hemodynamically stable, and abdomen is closed -Vent bundle. DuoNeb's as needed -Start spontaneous breathing trials again today -Extubated May 06 -She has developed ARDS and required reintubation on May 08. APRV mode required. FiO2 45%. -Reduce pressure high to 24, pressure low to 0. Decrease release time to 0.6. -Convert back to conventional mechanical ventilation with elevated PEEP when mean airway pressure a little lower.. Incarcerated strangulated Ventral hernia Abdominal abscesses -Status post exploratory laparotomy and washout -Follow-up cultures, negative to date -Empiric antibiotics and antifungal (IV Vanco, IV cefepime, IV Flagyl, IV Diflucan), adjust per ID service -ID consultation-Dr. Aguilar -Further management per general surgery -Pain controlled with fentanyl infusion and as needed IV push Septic shock -Aggressive IV fluid hydration -Dontrell-Synephrine as needed to keep map above 65 -Antibiotics as above -Probable pelvic inflammatory disease -Continued need for low-dose Dontrell-Synephrine 05/07 -Converted to norepinephrine for more vigorous support -As of May 11, still vasopressor dependent. -Vasopressor discontinued May 12. Anemia requiring transfusion -Hemoglobin 6.2, stat 2 units PRBC ordered. DVT GI prophylaxis -Teds SCDs -Pharmacological DVT prophylaxis per surgeon -Manolo Overall impression: This woman remains critically ill following drainage of gram -negative intra-abdominal abscesses. The abdomen was closed 05/04 and the patient remains with low level sepsis, requiring vasopressor support with Dontrell- Synephrine. She is at high risk for subsequent intra-abdominal infections. Noteworthy is her recent clinical deterioration, she has now become unstable from a respiratory and hemodynamic standpoint and has required increased vasopressor support. Reintubation and mechanical ventilation was required as she continued to deteriorate in sepsis and ARDS.
[2018-05-12] MEDS: Magnesium Sulfate Inj 2 GM in Sodium Chlor 0.9% Inj 96 ML IV.SIG PRN (11:34)
--- NOTE | 2018-05-12 14:31 | P.PNGS ---
Subjective Patient reports: no flatus, no bowel movement (remains sedated on vent) Physical Exam Vital signs: Vital Signs 05/11/18 15:36 05/11/18 16:00 05/11/18 18:00 Temperature 97.7 F Pulse Rate 82 86 96 H Respiratory Rate 36 H 13 Blood Pressure 141/93 H Pulse Oximetry 99 99 05/11/18 19:47 05/11/18 20:00 05/12/18 00:00 Temperature 96.8 F L 96.9 F L Pulse Rate 83 88 92 H Respiratory Rate 14 18 20 Blood Pressure 106/74 108/72 Pulse Oximetry 99 99 99 05/12/18 00:03 05/12/18 04:00 05/12/18 04:09 Temperature 97.5 F L Pulse Rate 100 H 105 H Respiratory Rate 14 20 14 Blood Pressure 103/65 Pulse Oximetry 99 99 05/12/18 06:00 05/12/18 08:00 05/12/18 08:15 Temperature 98.5 F Pulse Rate 108 H 110 H 110 H Respiratory Rate 12 26 H Blood Pressure 115/82 Pulse Oximetry 99 99 05/12/18 10:00 05/12/18 12:00 05/12/18 13:18 Temperature 98.6 F Pulse Rate 115 H 102 H Respiratory Rate 25 H 55 H Blood Pressure 102/65 Pulse Oximetry 98 98 Intake & Output 05/11/18 05/12/18 05/12/18 18:59 06:59 18:59 Intake Total 2051.5 / 2051.5 1672.5 / 1672.5 300 / 300 Output Total 2920 / 2920 2895 / 2895 Balance -868.5 / -868.5 -1222.5 / -1222.5 300 / 300 Weight 78.8 kg Intake: IV 1562.5 / 1562.5 1612.5 / 1612.5 300 / 300 Versed Inj 50 mg In 50 ml @ 2 50 / 50 50 / 50 MG/HR 2 mls/hr IV.CONT TITRATE PRN Rx#:[id number] Flexbumin 25% Inj 100 ML @ 60 200 / 200 100 / 100 100 / 100 mls/hr IV.SIG Q8H [facility] Rx#: [id number] Maxipime Inj 2,000 MG In NS Inj 100 / 100 200 / 200 100 / 100 100 ML @ 200 mls/hr IV.SIG Q8H [facility] Rx#:[id number] Intralipid 20% Inj 250 ML @ 31. 250 / 250 25 mls/hr IV.SIG Q24H [facility] Rx#: [id number] Diflucan 400 mg Premix Bag 200 200 / 200 200 / 200 ML @ 100 mls/hr IV.SIG Q24H [facility] Rx#:[id number] MVI-12 Inj 5 ML Folvite Inj 0.5 650 / 650 MG In Clinimix E 4.25%/D25W Inj 1,000 ML @ 40 mls/hr IV.SIG Q12H [facility] Rx#:[id number] KCl 40 mEq Premix Inj 40 meq In 100 / 100 100 ml @ 25 mls/hr IV.SIG UNSCH PRN Rx#:[id number] Vancomycin Inj 1,250 MG In NS 262.5 / 262.5 262.5 / 262.5 Inj 250 ML @ 250 mls/hr IV.SIG Q18H [facility] Rx#:[id number] fentaNYL 10 mcg/mL Premix Drip 250 / 250 2,500 mcg In 250 ml @ 50 MCG/HR 5 mls/hr IV.SIG TITRATE PRN Rx #:[id number] Flagyl 500 MG Inj 100 ML @ 100 100 / 100 200 / 200 100 / 100 mls/hr IV.SIG Q8H [facility] Rx#: [id number] Tube Feeding 30 / 30 Tube Irrigant 60 / 60 Water Bolus Amount 60 / 60 Intake (Blood Product) Amt 399 / 399 Rbc As-3 Leukoreduced Unit 399 / 399 [id number] Output: Stool 0 / 0 Estimated Blood Loss 250 / 250 Urine Amount (Catheter) 2450 / 2450 2750 / 2750 Indwelling Urethral Catheter 2450 / 2450 2750 / 2750 Gastric Drainage 200 / 200 125 / 125 Right Nare Nasogastric Tube 200 / 200 125 / 125 Wound Drainage 20 / 20 20 / 20 # 1 Abdomen 20 / 20 20 / 20 Other: # Bowel Movements 0 - Routine Abdominal Exam Present: distended, surgical scars, wound Comments: wound clean, leaking serous fluid, octavio intact - Urinary Catheter Management Indwelling Urethral Catheter Cath placed during this visit: yes Reason for continuing: Hourly intake/output Insertion date: 05/03/18 Assessment and Plan - Assessment (1) Pelvic abscess in female Code(s): N73.9 - Female pelvic inflammatory disease, unspecified Status: Acute (2) ARDS (adult respiratory distress syndrome) Code(s): J80 - Acute respiratory distress syndrome Status: Acute (3) Intra-abdominal abscess Code(s): K65.1 - Peritoneal abscess Status: Acute Plan: 42 year old female s/p washout of abdomen and closure (Dr. Smith) ; bilateral salpingo-oophorectomy (Dr. Escalera); ureteral stents (Dr. Beckwith) -High residuals from TF; stop TF -Increase TPN -Continue to wean vent as tolerated -Change midline incision daily and PRN for saturation -Discussed with TEJA Vazquez at bedside (4) Acute on chronic pancreatitis Code(s): K85.90 - Acute pancreatitis without necrosis or infection, unspecified ; K86.1 - Other chronic pancreatitis Status: Chronic (5) H/O brain surgery Code(s): Z98.890 - Other specified postprocedural states Status: Chronic - Plan Labs improving, may need another transfusion soon. Wean vent as tolerated Continue TPN, NG to LWS Continue ABX No active surgical issues - Dr. Smith off this weekend. Dr. French on Tuesday, Dr. Canas on Tuesday They will see prn, please call if any questions or concerns. Dr. Smith returns Tuesday
[2018-05-12] MEDS: Multivitamin Inj 5 ML, Folic Acid Inj 0.5 MG in AA 4.25 %/D25W - Electrolytes 1,000 ML IV.SIG SCH (15:18)
[2018-05-12] MEDS: Multivitamin Inj 10 ML, Folic Acid Inj 1 MG in TPN Fluid 2 Liter 2,000 ML IV.SIG SCH (20:14)
[2018-05-12] MEDS ORDERED: Pharmacy Ordered Lab Info OTHER ONE (20:45)
[2018-05-12] MEDS: Midazolam 50 MG/50 ML Inj 50 MG/50 ML BAG IV.CONT PRN (21:57)
[2018-05-12] MEDS: fentaNYL 10 mcg/mL Premix Drip 2,500 MCG/250 ML BAG IV.SIG PRN (22:12)
[2018-05-13] MEDS: Insulin NovoLOG Aspart Correctional Sugar Inj SQ SCH ×5 (00:08→23:46)
[2018-05-13] MEDS: Oral Hygiene Kit OROPHARYNG SCH ×5 (00:08→23:46)
[2018-05-13] MEDS: Chlorhexidine Gluconate 2% 1 Pack (2 Cloths) TOPICAL SCH (03:38)
--- NOTE | 2018-05-13 05:28 | XR ---
EXAM DATE: 05/13/2018 4:49 AM EDT AGE/SEX: 43 years / Female INDICATIONS: Hypoxia. Respiratory status. CLINICAL DATA: This is the patient's subsequent encounter. Patient reports that signs and symptoms h ave been present for 3 days and indicates a pain score of Nonresponsive. MEDICAL/SURGICAL HISTORY: Non-responsive. Non-responsive. COMPARISON: [facility] [place], CHEST 1V SINGLE AP, 05/10/2018. . FINDINGS: A single AP view of the chest demonstrates bilateral patchy mixed interstitial and airspace pulmonary disease in both hemithoraces. No significant change from prior. Life-support tubes are all stable in position. Heart size is normal. Osseous structures are intact CONCLUSION: Stable radiographic appearance of the chest with bilateral patchy mixed interstitial and airspace inf iltrates. Electronically signed by: Ventura Ham MD 05/13/2018 5:26 AM EDT
[2018-05-13] MEDS ORDERED: Pharmacy Ordered Lab Info OTHER SCH (06:00)
[2018-05-13 06:06] LABS: Baso # (Auto) 0.1 th/mm3 (0.0-0.2); Baso % (Auto) 0.9 % (0.0-2.0); Eos # (Auto) 0.3 th/mm3 (0.0-0.4); Eos % (Auto) 3.5 % (0.0-4.0); Hematocrit 22.7 % (35.0-46.0); Hemoglobin 7.7 gm/dL (11.6-15.3); Lymph # (Auto) 0.8 th/mm3 (1.0-4.8); Lymph % (Auto) 9.9 % (9.0-44.0); Mean Corpuscular HGB Conc 33.8 % (32.0-36.0); Mean Corpuscular Hemoglobin 30.5 pg (27.0-34.0); Mean Corpuscular Volume 90.3 fL (80.0-100.0); Mean Platelet Volume 11.3 fL (7.0-11.0); Mono # (Auto) 0.6 th/mm3 (0.0-0.9); Neut # (Auto) 6.6 th/mm3 (1.8-7.7); Neut % (Auto) 78.7 % (16.0-70.0); Platelet Count 66 th/mm3 (150-450); Red Blood Count 2.51 mil/mm3 (4.00-5.30); Red Cell Distribution Width 15.4 % (11.6-17.2); White Blood Count 8.3 th/mm3 (4.0-11.0)
[2018-05-13] MEDS: Albumin Human 25% Inj 100 ML IV.SIG SCH ×3 (06:15→23:31)
[2018-05-13 06:19] LABS: Carbon Dioxide 25.4 meq/L (21.0-32.0); Potassium 3.1 meq/L (3.5-5.1)
[2018-05-13 06:20] LABS: Vancomycin,Trough 32.7 mcg/mL (5.0-10.0)
[2018-05-13 08:09] LABS: Eosinophils 2 % (0-4); Lymphocytes 3 % (9-44); Metamyelocytes 1 % (0-1); Monocytes 3 % (0-8); Myelocytes 1 % (0-0)
[2018-05-13 08:11] LABS: Platelet Morphology Normal (Normal)
[2018-05-13] MEDS: Insulin Detemir Inj 1,000 UNIT/10 ML Vial SQ SCH ×2 (08:34→20:26)
[2018-05-13] MEDS: Chlorhexidine 0.12% Oral Kit 15 ML UDC OROPHARYNG SCH ×2 (08:34→20:26)
[2018-05-13] MEDS: Famotidine PF Inj 20 MG/2 ML Vial IV.PUSH SCH ×2 (08:34→20:26)
[2018-05-13] MEDS: Potassium Chlor 40 mEq Premix 40 MEQ/100 ML PIGGYBACK IV.SIG PRN ×2 (08:35→11:45)
--- NOTE | 2018-05-13 09:52 | P.PNCC ---
Subjective Subjective Remarks/Hospital Course: 42 year old female admitted for an evaluation of abdominal pain. The abdominal pain has acutely worsened today. Her pain pain has been present intermittently for about 2 weeks but it was not as severe in nature. She has been into the hospital previously and was told she has an abdominal ventral hernia. At that time there was no acute concerns or evidence of strangulation/incarceration. The CAT scan obtained in the emergency department showed large cystic structure in the pelvis with air-fluid levels as well as additional cystic collections with air-fluid levels which represent additional phlegmon or abscesses. She was taken emergently to operating room by Dr. Smith with finding of a fair amount of old blood that was in the abdomen and then down the pelvis as well as a fairly sizable abscess. She has had an abscess around the liver, which was evacuated and irrigated. A portion of the omentum was removed because it was partially necrotic. A second abscess was identified in a portion of the pouch of [place], which was evacuated, cultured as well. The abdomen was packed down the pelvis with two pads and then placed the VAC ABThera temporary closure device as the patient is planned to be brought back to operating room after stabilization in the intensive care unit. SUBJ 05/04: Remains intubated sedated remains critical. Currently on Dontrell- Synephrine to maintain map above 65. Hemoglobin came back at 6.2 ordered to receive 2 units of PRBC. White count is 28,000. Plan for OR 4 PM today. 05/05: Remains intubated and mechanically ventilated. Requiring vasopressor therapy with Dontrell-Synephrine to maintain suitable mean arterial pressure. White count markedly elevated. Abdominal closure yesterday. 05/06: Still requiring vasopressor support to maintain suitable blood pressure. Gas exchange has improved and we will start spontaneous breathing trials again today. White count declining. Renal function acceptable after an additional 3 L of saline were required yesterday. 05/07: During her period of florid sepsis she required considerable intravenous fluid in order to preserve renal function. It is now time to remove some of that fluid and she responded well to diuretics. Persistent leukocytosis is worrisome but overall she appears to be improving. Update 1200 hours: The patient's clinical condition has deteriorated over the past 6 hours, manifesting largely as respiratory distress and hypoxemia. It is tempting to attribute this largely to fluid overload following her extensive resuscitation but the declining bicarb level may well indicate worsening sepsis. 05/08: Continued deterioration and respiratory function overnight. This morning she is in full blown ARDS and will require reintubation and elevated airway pressures. We will obtain sputum on intubation and discuss antibiotic therapy with the infectious disease service. 05/09: Remains in ARDS. Oxygen diffusion gradient has been reduced by elevated mean airway pressures. Still vasopressor dependent and now anemic. No obvious source of blood loss. Remains critically ill and unstable. 05/10: Moves 4 limbs and responds. Gas exchange remains impaired but a little better than yesterday. Respiratory status remains unstable. Persistent elevation of lipase is concerning and it may be necessary to convert to parenteral nutrition. No evidence of bleeding. Will need to remove central line today 05/11: Still requiring vasopressor therapy undoubtedly due to low level ongoing sepsis. New lines have been placed, chest x-ray attempting to clear. Will try to lower airway pressures and perhaps convert back to conventional ventilation, allowing us to promote a diuresis. 05/12: We continued to lower mean airway pressure while maintaining recruitment. Gas exchange remains acceptable. Good response to diuretic therapy with 2 L negative balance yesterday. Finally off vasopressor support indicating resolution of sepsis. Lipase remains elevated, follow closely. 05/13: Weaning mean airway pressure lower. Coarse airway sounds and mild bronchospasm persists. Prerenal azotemia developing from diuresis will reduce diuretic dose. Lipase is finally returning toward normal. Consider restarting trickle feed tube feeds again. Objective Vital Signs / I&O: Vital Signs 05/12/18 10:00 05/12/18 12:00 05/12/18 13:18 Temperature 98.6 F Pulse Rate 115 H 102 H Respiratory Rate 25 H 55 H Blood Pressure 102/65 Pulse Oximetry 98 98 05/12/18 14:00 05/12/18 15:02 05/12/18 15:03 Temperature Pulse Rate 103 H 98 H Respiratory Rate 18 26 H Blood Pressure Pulse Oximetry 98 05/12/18 16:00 05/12/18 18:00 05/12/18 20:00 Temperature 98.3 F 98.7 F Pulse Rate 93 H 95 H 98 H Respiratory Rate 25 H 20 Blood Pressure 93/62 L 102/67 Pulse Oximetry 99 99 05/12/18 20:04 05/12/18 23:52 05/13/18 00:00 Temperature 99.7 F H Pulse Rate 102 H Respiratory Rate 21 27 H 26 H Blood Pressure 136/84 Pulse Oximetry 99 98 99 05/13/18 03:55 05/13/18 04:00 05/13/18 08:20 Temperature 98.4 F Pulse Rate 98 H Respiratory Rate 23 21 18 Blood Pressure 122/86 Pulse Oximetry 99 99 98 Intake & Output 05/12/18 05/13/18 05/13/18 18:59 06:59 18:59 Intake Total 1505.1 / 1505.1 1050 / 1050 200 / 200 Output Total 2665 / 2665 2750 / 2750 Balance -1159.9 / -1159.9 -1700 / -1700 200 / 200 Weight 75.4 kg Intake: IV 1505.1 / 1505.1 1050 / 1050 200 / 200 Versed Inj 50 mg In 50 ml @ 2 50 / 50 MG/HR 2 mls/hr IV.CONT TITRATE PRN Rx#:[id number] Flexbumin 25% Inj 100 ML @ 60 200 / 200 100 / 100 mls/hr IV.SIG Q8H ALMA Rx#: [id number] Maxipime Inj 2,000 MG In NS Inj 100 / 100 200 / 200 100 ML @ 200 mls/hr IV.SIG Q8H ALMA Rx#:[id number] Intralipid 20% Inj 250 ML @ 31. 250 / 250 25 mls/hr IV.SIG Q24H ALMA Rx#: [id number] Diflucan 400 mg Premix Bag 200 200 / 200 ML @ 100 mls/hr IV.SIG Q24H ALMA Rx#:[id number] Magnesium Sulfate Inj 2 GM In 100 / 100 NS Inj 96 ML @ 50 mls/hr IV.SIG UNSCH PRN Rx#:[id number] MVI-12 Inj 5 ML Folvite Inj 0.5 1005.1 / 1005.1 MG In Clinimix E 4.25%/D25W Inj 1,000 ML @ 50 mls/hr IV.SIG Q12H ALMA Rx#:[id number] fentaNYL 10 mcg/mL Premix Drip 250 / 250 2,500 mcg In 250 ml @ 50 MCG/HR 5 mls/hr IV.SIG TITRATE PRN Rx #:[id number] Flagyl 500 MG Inj 100 ML @ 100 100 / 100 200 / 200 mls/hr IV.SIG Q8H ALMA Rx#: [id number] Output: Stool 0 / 0 Urine Amount (Catheter) 2500 / 2500 2400 / 2400 Indwelling Urethral Catheter 2500 / 2500 2400 / 2400 Gastric Drainage 150 / 150 325 / 325 Right Nare Nasogastric Tube 150 / 150 325 / 325 Wound Drainage # 1 Abdomen Other: # Bowel Movements 0 Result Diagrams: 05/13/18 05:40 05/13/18 05:40 Objective Remarks: GENERAL: 42 y/o woman, sedated, mechanically ventilated. SKIN: No generalized rash, no ecchymoses, generally edematous HEAD: Atraumatic. Normocephalic. EYES: Pupils equal, round and reactive to light. No conjunctival icterus. No injection or drainage. ENT: NGT in place. Oral tracheal intubation. NECK: Trachea midline. Supple CARDIOVASCULAR: Regular rate and rhythm. No murmurs, rubs or gallops heard. Off vasopressor infusion to maintain map >65 RESPIRATORY: Coarse breath sounds bilaterally. Few scattered rhonchi. Good bilateral air entry. ABDOMEN: Closed abdomen. [place] drains draining serous fluid. Some serous drainage from lower midline wound EXTREMITIES: No clubbing, cyanosis. Extremities well perfused, considerable edema in extremities, improving. NEUROLOGICAL: Sedated lightly for vent synchrony. Withdraws 4 limbs to noxious stimulation. Opens eyes to voice. VIJAYA. Follows commands when sedation is lightened. Assessment and Plan - Assessment and Plan Plan: Respiratory failure -Post operative and secondary to severe sepsis -Patient's plans to return to operating room today -Continue mechanical ventilation -SBT daily when hemodynamically stable, and abdomen is closed -Vent bundle. DuoNeb's as needed -Start spontaneous breathing trials again today -Extubated May 06 -She has developed ARDS and required reintubation on May 08. APRV mode required. FiO2 45%. -Reduce pressure high to 24, pressure low to 0. Decrease release time to 0.6. -Convert back to conventional mechanical ventilation with elevated PEEP when mean airway pressure a little lower.. Incarcerated strangulated Ventral hernia Abdominal abscesses -Status post exploratory laparotomy and washout -Follow-up cultures, negative to date -Empiric antibiotics and antifungal (IV Vanco, IV cefepime, IV Flagyl, IV Diflucan), adjust per ID service -ID consultation-Dr. Aguilar -Further management per general surgery -Pain controlled with fentanyl infusion and as needed IV push Septic shock -Aggressive IV fluid hydration -Dontrell-Synephrine as needed to keep map above 65 -Antibiotics as above -Probable pelvic inflammatory disease -Continued need for low-dose Dontrell-Synephrine 05/07 -Converted to norepinephrine for more vigorous support -As of May 11, still vasopressor dependent. -Vasopressor discontinued May 12. Anemia requiring transfusion -Hemoglobin 6.2, stat 2 units PRBC ordered. DVT GI prophylaxis -Teds SCDs -Pharmacological DVT prophylaxis per surgeon -[place] Overall impression: This woman remains critically ill following drainage of gram -negative intra-abdominal abscesses. The abdomen was closed 05/04 and the patient remains with low level sepsis, requiring vasopressor support with Dontrell- Synephrine. She is at high risk for subsequent intra-abdominal infections. Noteworthy is her recent clinical deterioration, she has now become unstable from a respiratory and hemodynamic standpoint and has required increased vasopressor support. Reintubation and mechanical ventilation was required as she continued to deteriorate in sepsis and ARDS. Starting to make some progress with fluid mobilization and improved oxygen diffusion.
[2018-05-13] MEDS: Midazolam 50 MG/50 ML Inj 50 MG/50 ML BAG IV.CONT PRN (11:44)
--- NOTE | 2018-05-13 15:04 | P.PNID ---
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 Patient's last hospitalization was in March and at that time she presented with abdominal pain, and had pancreatitis. Her imaging studies did not show pancreatitis, pseudocyst, and an abdominal wall hernia. She she was discharged she has had on and off abdominal pain but he was not that bad, but on the day of admission she had an acute onset of severe abdominal pain. There is no mention of any fever chills or sweats. No nausea or vomiting. Imaging studies on this admission is showing incarcerated hernia and presence of intra-abdominal abscess. Surgery saw the patient, and she was taken to surgery and had exploratory laparotomy, drainage of multiple abscesses , perihepatic, and multiple intra-abdominal and pelvic abscesses. Her abdomen is currently open, and she has a wound VAC over her open abdominal incision. Patient currently is on sedation, on the respirator. She is on Dontrell-Synephrine. She is afebrile. Her white count on admission was 14,000, and it is 29,000 today. She is currently on Diflucan, Flagyl, and Levaquin. Infectious disease consultation has been requested to assist in evaluation and treatment of patient with intra-abdominal abscess. Had surgery: 05/04 1. Bilateral salpingo-oophorectomy by Dr. Catherine Escalera. 2. Abdominal washout, abdominal exploration. 3. Lysis of adhesions. 4. Removal of appendiceal stump from probable previously ruptured appendicitis. 5. Drainage of pelvic abscess with intra-abdominal drain. 6. Repair of incisional hernia with closure of abdomen. Notes reviewed On the vent, sedated Still on pressors Secretions clear NGT to suction WBC down to normal Creatinine rising Sputum C/S negative CXR stable infiltrates Fluid C/S mixed aerobes and anaerobes BC negative so far Has new central line Antibiotics: Cefepime Flagyl Vancomycin Diflucan Lines: central line [facility] - 05/10 Past Medical History: Traumatic brain injury (Acute) H/O Meckel's diverticulum History of exploratory laparotomy (Acute) H/O abdominal surgery (Acute) H/O brain surgery (Chronic) History of orthopedic surgery Allergies/Adverse Reactions: Allergies amoxicillin Allergy (Severe, Verified 04/05/18 19:19) Hives penicillin G Allergy (Severe, Verified 04/05/18 19:19) Hives Objective Vital Signs 05/12/18 15:02 05/12/18 15:03 05/12/18 16:00 Temperature 98.3 F Pulse Rate 98 H 93 H Respiratory Rate 18 26 H 25 H Blood Pressure 93/62 L Pulse Oximetry 98 99 05/12/18 18:00 05/12/18 20:00 05/12/18 20:04 Temperature 98.7 F Pulse Rate 95 H 98 H Respiratory Rate 20 21 Blood Pressure 102/67 Pulse Oximetry 99 99 05/12/18 23:52 05/13/18 00:00 05/13/18 03:55 Temperature 99.7 F H Pulse Rate 102 H Respiratory Rate 27 H 26 H 23 Blood Pressure 136/84 Pulse Oximetry 98 99 99 05/13/18 04:00 05/13/18 08:00 05/13/18 08:20 Temperature 98.4 F 98.7 F Pulse Rate 98 H 104 H Respiratory Rate 21 16 18 Blood Pressure 122/86 111/73 Pulse Oximetry 99 100 98 05/13/18 10:00 05/13/18 11:48 05/13/18 12:00 Temperature 98.7 F Pulse Rate 98 H 92 H Respiratory Rate 21 19 Blood Pressure 106/71 Pulse Oximetry 99 99 05/13/18 14:00 Temperature Pulse Rate 92 H Respiratory Rate Blood Pressure Pulse Oximetry Intake & Output 05/12/18 05/13/18 05/13/18 18:59 06:59 18:59 Intake Total 1505.1 / 1505.1 1050 / 1050 750 / 750 Output Total 2665 / 2665 2750 / 2750 Balance -1159.9 / -1159.9 -1700 / -1700 750 / 750 Weight 75.4 kg Intake: IV 1505.1 / 1505.1 1050 / 1050 750 / 750 Versed Inj 50 mg In 50 ml @ 2 50 / 50 50 / 50 MG/HR 2 mls/hr IV.CONT TITRATE PRN Rx#:[id number] Flexbumin 25% Inj 100 ML @ 60 200 / 200 100 / 100 100 / 100 mls/hr IV.SIG Q8H ALMA Rx#: [id number] Maxipime Inj 2,000 MG In NS Inj 100 / 100 200 / 200 100 / 100 100 ML @ 200 mls/hr IV.SIG Q8H ALMA Rx#:[id number] Intralipid 20% Inj 250 ML @ 31. 250 / 250 25 mls/hr IV.SIG Q24H ALMA Rx#: [id number] Diflucan 400 mg Premix Bag 200 200 / 200 ML @ 100 mls/hr IV.SIG Q24H ALMA Rx#:[id number] Magnesium Sulfate Inj 2 GM In 100 / 100 NS Inj 96 ML @ 50 mls/hr IV.SIG UNSCH PRN Rx#:[id number] MVI-12 Inj 5 ML Folvite Inj 0.5 1005.1 / 1005.1 MG In Clinimix E 4.25%/D25W Inj 1,000 ML @ 50 mls/hr IV.SIG Q12H ALMA Rx#:[id number] KCl 40 mEq Premix Inj 40 meq In 200 / 200 100 ml @ 25 mls/hr IV.SIG Q2H PRN Rx#:[id number] fentaNYL 10 mcg/mL Premix Drip 250 / 250 2,500 mcg In 250 ml @ 50 MCG/HR 5 mls/hr IV.SIG TITRATE PRN Rx #:[id number] Flagyl 500 MG Inj 100 ML @ 100 100 / 100 200 / 200 100 / 100 mls/hr IV.SIG Q8H ALMA Rx#: [id number] Output: Stool 0 / 0 Urine Amount (Catheter) 2500 / 2500 2400 / 2400 Indwelling Urethral Catheter 2500 / 2500 2400 / 2400 Gastric Drainage 150 / 150 325 / 325 Right Nare Nasogastric Tube 150 / 150 325 / 325 Wound Drainage # 1 Abdomen Other: # Bowel Movements 0 05/09/18 01:35 Blood - Line Aerobic Blood Culture - Preliminary No growth in 4 days 05/09/18 01:35 Blood - Line Anaerobic Blood Culture - Preliminary No growth in 4 days 05/09/18 00:26 Blood - Peripheral Aerobic Blood Culture - Preliminary No growth in 4 days 05/09/18 00:26 Blood - Peripheral Anaerobic Blood Culture - Preliminary QNS - See aerobic report. 05/09/18 15:35 Sputum - Endotracheal Gram Stain - Final 05/09/18 15:35 Sputum - Endotracheal Sputum Culture - Final No growth in 48 hours 05/02/18 23:50 Abscess - Abdominal Fungal Smear - Final No fungal elements seen 05/02/18 23:50 Abscess - Abdominal Fungal Culture - Preliminary No growth in 1 week 05/02/18 23:50 Abscess - Abdominal Acid Fast Bacilli Smear - Final No acid fast bacilli seen 05/02/18 23:50 Abscess - Abdominal Mycobacterial Culture - Preliminary No growth in 1 week Lab - Hematology Results 05/12/18 05/13/18 03:30 05:40 WBC 10.9 8.3 RBC 2.70 L 2.51 L Hgb 8.2 L 7.7 L Hct 24.7 L 22.7 L MCV 91.6 90.3 MCH 30.4 30.5 MCHC 33.2 33.8 RDW 15.3 15.4 Plt Count 64 L 66 L MPV 10.4 11.3 H Prelim Diff (Auto) Slide review pending Slide review pending Neut % (Auto) 83.5 H 78.7 H Lymph % (Auto) 8.9 L 9.9 [place] % (Auto) 3.9 7.0 Eos % (Auto) 2.5 3.5 Baso % (Auto) 1.2 0.9 Neut # (Auto) 9.1 H 6.6 Lymph # (Auto) 1.0 0.8 L [place] # (Auto) 0.4 0.6 Eos # (Auto) 0.3 0.3 Baso # (Auto) 0.1 0.1 WBC Differential . Manual diff final Diff Scan Auto diff confirmed Seg Neuts % (Manual) 88 H Band Neuts % (Manual) 2 Lymphocytes % (Manual) 3 L Monocytes % (Manual) 3 Eosinophils % (Manual) 2 Metamyelocytes % (Man) 1 Myelocytes % (Man) 1 H Abs Neuts (Manual) 7.6 Differential Comment . . Platelet Estimate Low L Low L Platelet Morphology Normal Normal Lab - Chemistry Results 05/11/18 05/11/18 05/11/18 17:46 18:15 23:05 Sodium Potassium 3.5 Chloride Carbon Dioxide Anion Gap BUN Creatinine Estimated GFR POC Glucose 121 H 120 H Random Glucose Calcium Magnesium 1.7 Lipase 05/12/18 05/12/18 05/12/18 03:30 11:23 16:24 Sodium 142 Potassium 3.9 Chloride 110 H Carbon Dioxide 24.6 Anion Gap 7 BUN 22 H Creatinine 1.08 H Estimated GFR POC Glucose 145 H 99 Random Glucose 114 H Calcium 7.5 L Magnesium 1.6 Lipase 1557 H 05/12/18 05/13/18 05/13/18 23:44 05:38 05:40 Sodium 144 Potassium 3.1 L D Chloride 108 H Carbon Dioxide 25.4 Anion Gap 11 BUN 26 H Creatinine 1.39 H Estimated GFR 41 L POC Glucose 87 93 Random Glucose 101 Calcium 8.0 L Magnesium Lipase 534 H 05/13/18 13:24 Sodium Potassium Chloride Carbon Dioxide Anion Gap BUN Creatinine Estimated GFR POC Glucose 85 Random Glucose Calcium Magnesium Lipase Imaging: ITS Impressions Abdomen/Pelvis CT 05/02/18 15:10 CONCLUSION: 1. Anterior abdominal wall hernia containing a loop of small bowel with air and apparent surrounding inflammatory change. There is an abnormal bowel gas pattern and this is of concern for acute obstruction with possible strangulation. 2. New large cystic structure in the pelvis with air-fluid levels as well as additional cystic collections with air-fluid levels with represent additional phlegmon or abscesses. 3. Acute pancreatitis again noted with enlarged head of the pancreas with multiple calcifications and indistinctness. There are new cystic structures within the pancreas. There are multiple calcifications again noted. Pancreatic duct remains dilated. 4. Cirrhotic appearing liver with surrounding ascites. 5. Tiny gallstone again noted. Chest X-Ray 05/13/18 04:00 CONCLUSION: Stable radiographic appearance of the chest with bilateral patchy mixed interstitial and airspace infiltrates. Physical Exam: GENERAL: on sedation, on the vent, awakens when stimulated. She is not in respiratory distress. SKIN: Cool and dry. No generalized rash, no ecchymoses and no evidence of embolic lesions. HEAD: Atraumatic. Normocephalic. No temporal wasting, or tenderness. EYES: [place] conjunctiva. No petechia or hemorrhage. Pupils equal, round and reactive to light. No scleral icterus. No injection or drainage. EARS, NOSE AND THROAT: Nose without bleeding or purulent nasal discharge, has NGT in place. She is orally intubated.. NECK: Trachea midline. Supple and not tender, no meningeal signs CARDIOVASCULAR: Regular rate and rhythm. No murmurs, rubs or gallops heard RESPIRATORY: Scattered rhonchi, worse on R than L ABDOMEN: Mildly distended, has midline incision, oozing serous fluid. One ILA in LLQ with serous fluid. Tender on palpation. Bowel sounds are hypoactive. EXTREMITIES: No clubbing, cyanosis, or edema. Well perfused and warm. NEUROLOGICAL: Sedated, opens eyes when stimulated PSYCHIATRIC: Unable to assess LINE: LSC line No evidence of infection Assessment and Plan - Plan Impression Sepsis with shock due to intraabdominal process Multiple intraabdominal and pelvic abscess, S/P lap and drainage of abscess - S/P reexploration and closure Respiratory failure New bilateral pulmonary infiltrates - ?PNA - ?ARDS Leukocytosis, better Renal insufficiency Recommendation Continue IV Vanco Continue Cefepime IV Continue Flagyl IV for anaerobes. Continue Diflucan GI yeast coverage. Monitor progress closely
[2018-05-13] MEDS: fentaNYL 10 mcg/mL Premix Drip 2,500 MCG/250 ML BAG IV.SIG PRN (23:30)
[2018-05-14] MEDS: Midazolam 50 MG/50 ML Inj 50 MG/50 ML BAG IV.CONT PRN ×3 (02:12→20:45)
[2018-05-14] MEDS: Oral Hygiene Kit OROPHARYNG SCH ×3 (04:08→15:36)
[2018-05-14 05:04] LABS: Baso # (Auto) 0.1 th/mm3 (0.0-0.2); Baso % (Auto) 0.7 % (0.0-2.0); Eos # (Auto) 0.3 th/mm3 (0.0-0.4); Eos % (Auto) 3.8 % (0.0-4.0); Hematocrit 22.7 % (35.0-46.0); Hemoglobin 7.7 gm/dL (11.6-15.3); Lymph % (Auto) 13.9 % (9.0-44.0); Mean Corpuscular HGB Conc 33.7 % (32.0-36.0); Mean Corpuscular Hemoglobin 30.3 pg (27.0-34.0); Mean Platelet Volume 10.8 fL (7.0-11.0); Mono # (Auto) 0.7 th/mm3 (0.0-0.9); Mono % (Auto) 9.2 % (0.0-8.0); Neut # (Auto) 5.4 th/mm3 (1.8-7.7); Neut % (Auto) 72.4 % (16.0-70.0); Platelet Count 80 th/mm3 (150-450); Red Blood Count 2.53 mil/mm3 (4.00-5.30); Red Cell Distribution Width 15.4 % (11.6-17.2); White Blood Count 7.5 th/mm3 (4.0-11.0)
[2018-05-14] MEDS: Multivitamin Inj 10 ML, Folic Acid Inj 1 MG in TPN Fluid 2 Liter 2,000 ML IV.SIG SCH (05:15)
[2018-05-14 05:34] LABS: Calcium 8.2 mg/dL (8.5-10.1); Carbon Dioxide 25.3 meq/L (21.0-32.0); Potassium 3.5 meq/L (3.5-5.1)
[2018-05-14] MEDS: Insulin NovoLOG Aspart Correctional Sugar Inj SQ SCH ×3 (06:39→18:43)
[2018-05-14 08:01] LABS: Eosinophils 8 % (0-4); Lymphocytes 6 % (9-44); Monocytes 4 % (0-8); Myelocytes 1 % (0-0); Promyelocyte 1 % (0-0)
[2018-05-14 08:08] LABS: Target Cells 1+
[2018-05-14] MEDS: Famotidine PF Inj 20 MG/2 ML Vial IV.PUSH SCH ×2 (08:23→20:34)
[2018-05-14] MEDS: Insulin Detemir Inj 1,000 UNIT/10 ML Vial SQ SCH ×2 (08:23→20:34)
[2018-05-14] MEDS: Chlorhexidine 0.12% Oral Kit 15 ML UDC OROPHARYNG SCH ×2 (08:23→20:35)
--- NOTE | 2018-05-14 13:25 | P.PNCC ---
Subjective Subjective Remarks/Hospital Course: 42 year old female admitted for an evaluation of abdominal pain. The abdominal pain has acutely worsened today. Her pain pain has been present intermittently for about 2 weeks but it was not as severe in nature. She has been into the hospital previously and was told she has an abdominal ventral hernia. At that time there was no acute concerns or evidence of strangulation/incarceration. The CAT scan obtained in the emergency department showed large cystic structure in the pelvis with air-fluid levels as well as additional cystic collections with air-fluid levels which represent additional phlegmon or abscesses. She was taken emergently to operating room by Dr. Smith with finding of a fair amount of old blood that was in the abdomen and then down the pelvis as well as a fairly sizable abscess. She has had an abscess around the liver, which was evacuated and irrigated. A portion of the omentum was removed because it was partially necrotic. A second abscess was identified in a portion of the pouch of Csaey, which was evacuated, cultured as well. The abdomen was packed down the pelvis with two pads and then placed the VAC ABThera temporary closure device as the patient is planned to be brought back to operating room after stabilization in the intensive care unit. SUBJ 05/04: Remains intubated sedated remains critical. Currently on Dontrell- Synephrine to maintain map above 65. Hemoglobin came back at 6.2 ordered to receive 2 units of PRBC. White count is 28,000. Plan for OR 4 PM today. 05/05: Remains intubated and mechanically ventilated. Requiring vasopressor therapy with Dontrell-Synephrine to maintain suitable mean arterial pressure. White count markedly elevated. Abdominal closure yesterday. 05/06: Still requiring vasopressor support to maintain suitable blood pressure. Gas exchange has improved and we will start spontaneous breathing trials again today. White count declining. Renal function acceptable after an additional 3 L of saline were required yesterday. 05/07: During her period of florid sepsis she required considerable intravenous fluid in order to preserve renal function. It is now time to remove some of that fluid and she responded well to diuretics. Persistent leukocytosis is worrisome but overall she appears to be improving. Update 1200 hours: The patient's clinical condition has deteriorated over the past 6 hours, manifesting largely as respiratory distress and hypoxemia. It is tempting to attribute this largely to fluid overload following her extensive resuscitation but the declining bicarb level may well indicate worsening sepsis. 05/08: Continued deterioration and respiratory function overnight. This morning she is in full blown ARDS and will require reintubation and elevated airway pressures. We will obtain sputum on intubation and discuss antibiotic therapy with the infectious disease service. 05/09: Remains in ARDS. Oxygen diffusion gradient has been reduced by elevated mean airway pressures. Still vasopressor dependent and now anemic. No obvious source of blood loss. Remains critically ill and unstable. 05/10: Moves 4 limbs and responds. Gas exchange remains impaired but a little better than yesterday. Respiratory status remains unstable. Persistent elevation of lipase is concerning and it may be necessary to convert to parenteral nutrition. No evidence of bleeding. Will need to remove central line today 05/11: Still requiring vasopressor therapy undoubtedly due to low level ongoing sepsis. New lines have been placed, chest x-ray attempting to clear. Will try to lower airway pressures and perhaps convert back to conventional ventilation, allowing us to promote a diuresis. 05/12: We continued to lower mean airway pressure while maintaining recruitment. Gas exchange remains acceptable. Good response to diuretic therapy with 2 L negative balance yesterday. Finally off vasopressor support indicating resolution of sepsis. Lipase remains elevated, follow closely. 05/13: Weaning mean airway pressure lower. Coarse airway sounds and mild bronchospasm persists. Prerenal azotemia developing from diuresis will reduce diuretic dose. Lipase is finally returning toward normal. Consider restarting trickle feed tube feeds again. 05/14: Her septic course is very much improved. She remains persistently edematous. There are continued bilateral infiltrates on the chest x-ray and the left side density behind the heart sure looks like a pneumonia. Absence of leukocytosis belies that however. We have been slowly weaning her mean airway pressure and PEEP because she has problems with de-recruitment while resolving ARDS. Objective Vital Signs / I&O: Vital Signs 05/13/18 14:00 05/13/18 15:56 05/13/18 16:00 Temperature 98.8 F Pulse Rate 92 H 93 H Respiratory Rate 17 16 Blood Pressure 120/77 Pulse Oximetry 99 99 05/13/18 18:00 05/13/18 20:00 05/13/18 20:27 Temperature 98.6 F Pulse Rate 95 H 104 H Respiratory Rate 19 24 Blood Pressure 129/85 Pulse Oximetry 98 98 05/13/18 22:00 05/14/18 00:00 05/14/18 00:01 Temperature 99.2 F Pulse Rate 112 H 102 H Respiratory Rate 17 18 Blood Pressure 120/77 Pulse Oximetry 98 98 05/14/18 02:00 05/14/18 04:00 05/14/18 04:03 Temperature 99.5 F Pulse Rate 102 H 116 H Respiratory Rate 20 21 Blood Pressure 131/88 Pulse Oximetry 94 L 94 L 05/14/18 06:00 05/14/18 07:49 05/14/18 08:00 Temperature 99.5 F Pulse Rate 110 H 108 H Respiratory Rate 26 H 23 Blood Pressure 131/93 H Pulse Oximetry 97 99 05/14/18 10:00 05/14/18 11:46 05/14/18 12:00 Temperature 99.2 F Pulse Rate 112 H 112 H Respiratory Rate 24 23 Blood Pressure 135/101 H Pulse Oximetry 97 97 Intake & Output 05/13/18 05/14/18 05/14/18 18:59 06:59 18:59 Intake Total 850 / 850 2960.2 / 2960.2 400 / 400 Output Total 2820 / 2820 1245 / 1245 Balance -1969 / -1970 1715.2 / 1715.2 400 / 400 Weight 75 kg Intake: IV 850 / 850 2960.2 / 2960.2 400 / 400 Versed Inj 50 mg In 50 ml @ 2 50 / 50 50 / 50 MG/HR 2 mls/hr IV.CONT TITRATE PRN Rx#:[id number] Flexbumin 25% Inj 100 ML @ 60 200 / 200 100 / 100 mls/hr IV.SIG Q8H [facility] Rx#: [id number] Maxipime Inj 2,000 MG In NS Inj 100 / 100 100 / 100 100 / 100 100 ML @ 200 mls/hr IV.SIG Q12H [facility] Rx#:[id number] Intralipid 20% Inj 250 ML @ 31. 250 / 250 25 mls/hr IV.SIG Q24H [facility] Rx#: [id number] Diflucan 400 mg Premix Bag 200 200 / 200 200 / 200 ML @ 100 mls/hr IV.SIG Q24H [facility] Rx#:[id number] MVI-12 Inj 10 ML Folvite Inj 1 2009.2 / 2009.2 MG In TPN Fluid 2 Liter 2,000 ML @ 55 mls/hr IV.SIG DAILY@ 1999 [facility] Rx#:[id number] KCl 40 mEq Premix Inj 40 meq In 200 / 200 100 ml @ 25 mls/hr IV.SIG Q2H [facility] Rx#:[id number] fentaNYL 10 mcg/mL Premix Drip 250 / 250 2,500 mcg In 250 ml @ 50 MCG/HR 5 mls/hr IV.SIG TITRATE PRN Rx #:[id number] Flagyl 500 MG Inj 100 ML @ 100 100 / 100 200 / 200 100 / 100 mls/hr IV.SIG Q8H [facility] Rx#: [id number] Output: Estimated Blood Loss 250 / 250 Urine Amount (Catheter) 2450 / 2450 1125 / 1125 Indwelling Urethral Catheter 2450 / 2450 1125 / 1125 Gastric Drainage 100 / 100 100 / 100 Right Nare Nasogastric Tube 100 / 100 100 / 100 Wound Drainage 20 / 20 20 / 20 # 1 Abdomen 20 / 20 20 / 20 Other: # Bowel Movements 0 0 Result Diagrams: 05/14/18 04:30 05/14/18 04:30 Objective Remarks: GENERAL: 42 y/o woman, sedated, mechanically ventilated. SKIN: No generalized rash, no ecchymoses, generally edematous HEAD: Atraumatic. Normocephalic. EYES: Pupils equal, round and reactive to light. No conjunctival icterus. No injection or drainage. ENT: NGT in place. Oral tracheal intubation. NECK: Trachea midline. Supple CARDIOVASCULAR: Regular rate and rhythm. No murmurs, rubs or gallops heard. Off vasopressor infusion to maintain map >65 RESPIRATORY: Coarse breath sounds bilaterally, scattered rhonchi. Good bilateral air entry. ABDOMEN: Closed abdomen. Cristobal-Timmons drains draining serous fluid. Some serous drainage from lower midline wound EXTREMITIES: No clubbing, cyanosis. Extremities well perfused, considerable edema in extremities, improving. NEUROLOGICAL: Sedated lightly for vent synchrony. Withdraws 4 limbs to noxious stimulation. Opens eyes to voice. VIJAYA. Follows commands when sedation is lightened. Assessment and Plan - Assessment and Plan Plan: Respiratory failure -Post operative and secondary to severe sepsis -Patient's plans to return to operating room today -Continue mechanical ventilation -SBT daily when hemodynamically stable, and abdomen is closed -Vent bundle. DuoNeb's as needed -Start spontaneous breathing trials again today -Extubated May 06 -She has developed ARDS and required reintubation on May 08. APRV mode required. FiO2 45%. -Reduce pressure high to 24, pressure low to 0. Decrease release time to 0.6. -Converted back to conventional mechanical ventilation with elevated PEEP. Incarcerated strangulated Ventral hernia Abdominal abscesses -Status post exploratory laparotomy and washout -Follow-up cultures, negative to date -Empiric antibiotics and antifungal (IV Vanco, IV cefepime, IV Flagyl, IV Diflucan), adjust per ID service -ID consultation-Dr. Aguilar -Further management per general surgery -Pain controlled with fentanyl infusion and as needed IV push Septic shock -Aggressive IV fluid hydration -Dontrell-Synephrine as needed to keep map above 65 -Antibiotics as above -Probable pelvic inflammatory disease -Continued need for low-dose Dontrell-Synephrine 05/07 -Converted to norepinephrine for more vigorous support -As of May 11, still vasopressor dependent. -Vasopressor discontinued May 12. Anemia requiring transfusion -Hemoglobin 6.2, stat 2 units PRBC ordered. DVT GI prophylaxis -Teds SCDs -Pharmacological DVT prophylaxis -Pepcid Overall impression: This woman remains critically ill following drainage of gram -negative intra-abdominal abscesses. The abdomen was closed 05/04 and the patient remains with low level sepsis, requiring vasopressor support with Dontrell- Synephrine. She is at high risk for subsequent intra-abdominal infections. Noteworthy is her recent clinical deterioration, she has now become unstable from a respiratory and hemodynamic standpoint and has required increased vasopressor support. Reintubation and mechanical ventilation was required as she continued to deteriorate in sepsis and ARDS. Starting to make some progress with fluid mobilization and improved oxygen diffusion. Efforts to diuresis her have resulted in a prerenal azotemia.
[2018-05-14] MEDS: Albumin Human 25% Inj 100 ML IV.SIG SCH (14:34)
[2018-05-14] MEDS: fentaNYL 10 mcg/mL Premix Drip 2,500 MCG/250 ML BAG IV.SIG PRN (20:06)
[2018-05-14 21:46] LABS: Potassium 3.3 meq/L (3.5-5.1)
[2018-05-14 21:52] LABS: Phosphorus 2.4 mg/dL (2.5-4.9)
[2018-05-15] MEDS: Insulin NovoLOG Aspart Correctional Sugar Inj SQ SCH ×4 (00:21→19:31)
[2018-05-15] MEDS: Oral Hygiene Kit OROPHARYNG SCH ×4 (00:21→19:00)
[2018-05-15] MEDS: Albumin Human 25% Inj 100 ML IV.SIG SCH ×4 (01:33→23:00)
--- NOTE | 2018-05-15 04:51 | XR ---
EXAM DATE: 05/15/2018 4:29 AM EDT AGE/SEX: 43 years / Female INDICATIONS: Shortness of breath. Congestion. CLINICAL DATA: This is the patient's subsequent encounter. Patient reports that signs and symptoms h ave been present for 4 - 6 days and indicates a pain score of Nonresponsive. MEDICAL/SURGICAL HISTORY: Non-responsive. Non-responsive. COMPARISON: [facility] – [place], [place]ST 1V SINGLE AP, 05/13/2018. . FINDINGS: By basilar consolidation again noted, left greater than right and both sides slightly improved in the interim. A small left pleural effusion is likely. No pneumothorax. Heart size stable, within normal limits. Endotracheal tube tip is approximately 4 cm above the arti. Nasogastric tube courses into the stoma ch. There is a right subclavian central venous catheter with tip at atriocaval junction. CONCLUSION: Slightly improved bibasilar airspace opacities. Electronically signed by: Scotty Ruiz MD 05/15/2018 4:50 AM EDT
[2018-05-15 05:49] LABS: Anion Gap 10 meq/L (5-15); Blood Urea Nitrogen 35 mg/dL (7-18); Calcium 8.1 mg/dL (8.5-10.1); Carbon Dioxide 26.3 meq/L (21.0-32.0); Chloride 105 meq/L (98-107); Glucose,Random 132 mg/dL (74-106); Potassium 3.3 meq/L (3.5-5.1); Sodium 141 meq/L (136-145)
[2018-05-15 05:52] LABS: Lipase 1919 U/L (73-393); Vancomycin,Random 15.6 Comment
[2018-05-15] MEDS: Midazolam 50 MG/50 ML Inj 50 MG/50 ML BAG IV.CONT PRN ×2 (05:55→19:33)
[2018-05-15] MEDS: Multivitamin Inj 10 ML, Folic Acid Inj 1 MG in TPN Fluid 2 Liter 2,000 ML IV.SIG SCH ×2 (08:00→10:37)
--- NOTE | 2018-05-15 09:47 | P.PNGS ---
Subjective Interval history: Intubated/Sedated TEJA Calderon at bedside Physical Exam Vital signs: Vital Signs 05/14/18 10:00 05/14/18 11:46 05/14/18 12:00 Temperature 99.2 F Pulse Rate 112 H 112 H Respiratory Rate 24 23 Blood Pressure 135/101 H Pulse Oximetry 97 97 05/14/18 14:00 05/14/18 15:49 05/14/18 16:00 Temperature 99.9 F H Pulse Rate 116 H 126 H Respiratory Rate 15 25 H Blood Pressure 123/83 Pulse Oximetry 98 96 05/14/18 18:00 05/14/18 20:00 05/14/18 21:15 Temperature 99.2 F Pulse Rate 116 H 102 H Respiratory Rate 27 H 21 Blood Pressure Pulse Oximetry 96 97 05/14/18 22:00 05/15/18 00:00 05/15/18 00:16 Temperature 98.5 F Pulse Rate 96 H 94 H Respiratory Rate 23 23 Blood Pressure 117/87 Pulse Oximetry 98 99 05/15/18 02:00 05/15/18 03:55 05/15/18 04:00 Temperature 98.6 F Pulse Rate 96 H 102 H Respiratory Rate 25 H 26 H Blood Pressure 135/94 H Pulse Oximetry 98 98 05/15/18 06:00 05/15/18 08:59 Temperature Pulse Rate 104 H Respiratory Rate 26 H Blood Pressure Pulse Oximetry 95 Intake & Output 05/14/18 05/15/18 05/15/18 18:59 06:59 18:59 Intake Total 600 / 600 1000 / 1000 2210.2 / 2210.2 Output Total 2635 / 2635 790 / 790 Balance -2035 / -2035 210 / 210 2210.2 / 2210.2 Weight 74.2 kg Intake: IV 600 / 600 1000 / 1000 2210.2 / 2210.2 Versed Inj 50 mg In 50 ml @ 2 100 / 100 MG/HR 2 mls/hr IV.CONT TITRATE PRN Rx#:[id number] Ofirmev Inj 1,000 mg In 100 ml 100 / 100 @ 400 mls/hr IV.SIG ONCE ONE Rx #:[id number] Flexbumin 25% Inj 100 ML @ 60 100 / 100 100 / 100 mls/hr IV.SIG Q12H [facility] Rx#: [id number] Maxipime Inj 2,000 MG In NS Inj 100 / 100 100 / 100 100 ML @ 200 mls/hr IV.SIG Q12H [facility] Rx#:[id number] Intralipid 20% Inj 250 ML @ 31. 250 / 250 25 mls/hr IV.SIG Q24H [facility] Rx#: [id number] Diflucan 400 mg Premix Bag 200 200 / 200 200 / 200 ML @ 100 mls/hr IV.SIG Q24H [facility] Rx#:[id number] MVI-12 Inj 10 ML Folvite Inj 1 2009.2 / 2009.2 MG In TPN Fluid 2 Liter 2,000 ML @ 70 mls/hr IV.SIG DAILY@ 1999 [facility] Rx#:[id number] fentaNYL 10 mcg/mL Premix Drip 250 / 250 2,500 mcg In 250 ml @ 50 MCG/HR 5 mls/hr IV.SIG TITRATE PRN Rx #:[id number] Flagyl 500 MG Inj 100 ML @ 100 100 / 100 200 / 200 mls/hr IV.SIG Q8H [facility] Rx#: [id number] Output: Urine Amount (Catheter) 2525 / 2525 575 / 575 Indwelling Urethral Catheter 2525 / 2525 575 / 575 Gastric Drainage 100 / 100 200 / 200 Right Nare Nasogastric Tube 100 / 100 200 / 200 Wound Drainage # 1 Abdomen Other: # Bowel Movements 0 0 Narrative: Intubated Abd: midline incision with octavio in place; clear serous drainage on drainage pad; third spacing edema in the inferior portion of the incision 2+ pitting edema in BLE - Urinary Catheter Management Indwelling Urethral Catheter Cath placed during this visit: yes Reason for continuing: Hourly intake/output Insertion date: 05/03/18 Assessment and Plan - Assessment (1) Pelvic abscess in female Code(s): N73.9 - Female pelvic inflammatory disease, unspecified Status: Acute (2) ARDS (adult respiratory distress syndrome) Code(s): J80 - Acute respiratory distress syndrome Status: Acute (3) Intra-abdominal abscess Code(s): K65.1 - Peritoneal abscess Status: Acute Plan: 42 year old female s/p washout of abdomen and closure (Dr. Smith) ; bilateral salpingo-oophorectomy (Dr. Escalera); ureteral stents (Dr. Beckwith) -NGT to LIWS -Lipase continues to increase -TPN---increase to full strength -Vent per CCM -Continue dressing changes frequently due to increased drainage (4) Acute on chronic pancreatitis Code(s): K85.90 - Acute pancreatitis without necrosis or infection, unspecified ; K86.1 - Other chronic pancreatitis Status: Chronic (5) H/O brain surgery Code(s): Z98.890 - Other specified postprocedural states Status: Chronic - Attending Attestation Patient will need a tracheostomy We will plan in the near future NOTE FOR SURGICAL ATTENDING, DR. RADHA SMITH I agree with above assessment and plan. The exam, history, and the medical decision-making described in the above note were completed with the assistance of the mid-level provider. I reviewed and agree with the findings presented. I attest that I had a [id number] encounter with the patient on the same day, and personally performed and documented my assessment and findings in the medical record. The following services were provided during this hospital visit: Chart data review, vital sign assessments/reviewing monitor data Review of consultations notes if present. Medication orders/review and/or management Ordering and/or reviewing lab tests Ordering and/or interpreting/reviewing x-rays and/or diagnostic studies Care of the patient and discussion of the patient with the care team Documentation time To help prompt me to consider important information that might be impacting today's encounter and assessment, Information from prior notes written by myself or my colleagues may have been "brought forward/copy and pasted" into today's note.
--- NOTE | 2018-05-15 10:11 | P.PNID ---
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 Patient's last hospitalization was in March and at that time she presented with abdominal pain, and had pancreatitis. Her imaging studies did not show pancreatitis, pseudocyst, and an abdominal wall hernia. She she was discharged she has had on and off abdominal pain but he was not that bad, but on the day of admission she had an acute onset of severe abdominal pain. There is no mention of any fever chills or sweats. No nausea or vomiting. Imaging studies on this admission is showing incarcerated hernia and presence of intra-abdominal abscess. Surgery saw the patient, and she was taken to surgery and had exploratory laparotomy, drainage of multiple abscesses , perihepatic, and multiple intra-abdominal and pelvic abscesses. Her abdomen is currently open, and she has a wound VAC over her open abdominal incision. Patient currently is on sedation, on the respirator. She is on Dontrell-Synephrine. She is afebrile. Her white count on admission was 14,000, and it is 29,000 today. She is currently on Diflucan, Flagyl, and Levaquin. Infectious disease consultation has been requested to assist in evaluation and treatment of patient with intra-abdominal abscess. Had surgery: 05/04 1. Bilateral salpingo-oophorectomy by Dr. Catherine Escalera. 2. Abdominal washout, abdominal exploration. 3. Lysis of adhesions. 4. Removal of appendiceal stump from probable previously ruptured appendicitis. 5. Drainage of pelvic abscess with intra-abdominal drain. 6. Repair of incisional hernia with closure of abdomen. Notes reviewed D/W RN Off sedation Opens eyes, not following On the vent Not tolerating CPAP, will be tried again Off pressors NGT to suction WBC down to normal Creatinine stabilizing Platelet improving Sputum C/S negative 05/09 New sputum C/S pending CXR 05/15 with some improvement Has new central line Antibiotics: Cefepime Flagyl Vancomycin Diflucan Lines: central line [facility] - 05/10 Past Medical History: Traumatic brain injury (Acute) H/O Meckel's diverticulum History of exploratory laparotomy (Acute) H/O abdominal surgery (Acute) H/O brain surgery (Chronic) History of orthopedic surgery Allergies/Adverse Reactions: Allergies amoxicillin Allergy (Severe, Verified 04/05/18 19:19) Hives penicillin G Allergy (Severe, Verified 04/05/18 19:19) Hives Objective Vital Signs 05/14/18 11:46 05/14/18 12:00 05/14/18 14:00 Temperature 99.2 F Pulse Rate 112 H 116 H Respiratory Rate 24 23 Blood Pressure 135/101 H Pulse Oximetry 97 97 05/14/18 15:49 05/14/18 16:00 05/14/18 18:00 Temperature 99.9 F H Pulse Rate 126 H 116 H Respiratory Rate 15 25 H Blood Pressure 123/83 Pulse Oximetry 98 96 05/14/18 20:00 05/14/18 21:15 05/14/18 22:00 Temperature 99.2 F Pulse Rate 102 H 96 H Respiratory Rate 27 H 21 Blood Pressure Pulse Oximetry 96 97 05/15/18 00:00 05/15/18 00:16 05/15/18 02:00 Temperature 98.5 F Pulse Rate 94 H 96 H Respiratory Rate 23 23 Blood Pressure 117/87 Pulse Oximetry 98 99 05/15/18 03:55 05/15/18 04:00 05/15/18 06:00 Temperature 98.6 F Pulse Rate 102 H 104 H Respiratory Rate 25 H 26 H Blood Pressure 135/94 H Pulse Oximetry 98 98 05/15/18 08:00 05/15/18 08:59 Temperature Pulse Rate 115 H Respiratory Rate 26 H Blood Pressure Pulse Oximetry 95 Intake & Output 05/14/18 05/15/18 05/15/18 18:59 06:59 18:59 Intake Total 600 / 600 1000 / 1000 2210.2 / 2210.2 Output Total 2635 / 2635 790 / 790 Balance -2035 / -2035 210 / 210 2210.2 / 2210.2 Weight 74.2 kg Intake: IV 600 / 600 1000 / 1000 2210.2 / 2210.2 Versed Inj 50 mg In 50 ml @ 2 100 / 100 MG/HR 2 mls/hr IV.CONT TITRATE PRN Rx#:[id number] Ofirmev Inj 1,000 mg In 100 ml 100 / 100 @ 400 mls/hr IV.SIG ONCE ONE Rx #:[id number] Flexbumin 25% Inj 100 ML @ 60 100 / 100 100 / 100 mls/hr IV.SIG Q12H [facility] Rx#: [id number] Maxipime Inj 2,000 MG In NS Inj 100 / 100 100 / 100 100 ML @ 200 mls/hr IV.SIG Q12H [facility] Rx#:[id number] Intralipid 20% Inj 250 ML @ 31. 250 / 250 25 mls/hr IV.SIG Q24H [facility] Rx#: [id number] Diflucan 400 mg Premix Bag 200 200 / 200 200 / 200 ML @ 100 mls/hr IV.SIG Q24H [facility] Rx#:[id number] MVI-12 Inj 10 ML Folvite Inj 1 2009.2 / 2009.2 MG In TPN Fluid 2 Liter 2,000 ML @ 70 mls/hr IV.SIG DAILY@ 1999 [facility] Rx#:[id number] fentaNYL 10 mcg/mL Premix Drip 250 / 250 2,500 mcg In 250 ml @ 50 MCG/HR 5 mls/hr IV.SIG TITRATE PRN Rx #:[id number] Flagyl 500 MG Inj 100 ML @ 100 100 / 100 200 / 200 mls/hr IV.SIG Q8H [facility] Rx#: [id number] Output: Urine Amount (Catheter) 2525 / 2525 575 / 575 Indwelling Urethral Catheter 2525 / 2525 575 / 575 Gastric Drainage 100 / 100 200 / 200 Right Nare Nasogastric Tube 100 / 100 200 / 200 Wound Drainage # 1 Abdomen Other: # Bowel Movements 0 0 05/14/18 18:50 Sputum - Endotracheal Gram Stain - Final 05/14/18 18:50 Sputum - Endotracheal Sputum Culture - Pending 05/09/18 01:35 Blood - Line Aerobic Blood Culture - Final No growth in 5 days 05/09/18 01:35 Blood - Line Anaerobic Blood Culture - Final No growth in 5 days 05/09/18 00:26 Blood - Peripheral Aerobic Blood Culture - Final No growth in 5 days 05/09/18 00:26 Blood - Peripheral Anaerobic Blood Culture - Preliminary QNS - See aerobic report. Lab - Hematology Results 05/14/18 04:30 WBC 7.5 RBC 2.53 L Hgb 7.7 L Hct 22.7 L MCV 90.0 MCH 30.3 MCHC 33.7 RDW 15.4 Plt Count 80 L MPV 10.8 Prelim Diff (Auto) Slide review pending Neut % (Auto) 72.4 H Lymph % (Auto) 13.9 Kay % (Auto) 9.2 H Eos % (Auto) 3.8 Baso % (Auto) 0.7 Neut # (Auto) 5.4 Lymph # (Auto) 1.0 Kay # (Auto) 0.7 Eos # (Auto) 0.3 Baso # (Auto) 0.1 WBC Differential Manual diff final Seg Neuts % (Manual) 78 H Band Neuts % (Manual) 2 Lymphocytes % (Manual) 6 L Monocytes % (Manual) 4 Eosinophils % (Manual) 8 H Myelocytes % (Man) 1 H Promyelocytes % (Man) 1 H Abs Neuts (Manual) 6.2 Differential Comment . Platelet Estimate Low L Platelet Morphology Enlarged H Target Cells 1+ H Lab - Chemistry Results 05/13/18 05/13/18 05/13/18 13:24 16:40 18:35 Sodium Potassium 4.0 D Chloride Carbon Dioxide Anion Gap BUN Creatinine Estimated GFR POC Glucose 85 85 Random Glucose Calcium Phosphorus Lipase 05/13/18 05/14/18 05/14/18 23:44 04:30 06:01 Sodium 144 Potassium 3.5 Chloride 107 Carbon Dioxide 25.3 Anion Gap 12 BUN 31 H Creatinine 1.43 H Estimated GFR 40 L POC Glucose 120 H 143 H Random Glucose 144 H Calcium 8.2 L Phosphorus Lipase 916 H 05/14/18 05/14/18 05/14/18 11:38 16:58 20:45 Sodium Potassium 3.3 L Chloride Carbon Dioxide Anion Gap BUN Creatinine Estimated GFR POC Glucose 176 H 152 H Random Glucose Calcium Phosphorus 2.4 L Lipase 05/14/18 05/15/18 05/15/18 23:36 04:15 05:11 Sodium 141 Potassium 3.3 L Chloride 105 Carbon Dioxide 26.3 Anion Gap 10 BUN 35 H Creatinine 1.46 H Estimated GFR POC Glucose 111 H 120 H Random Glucose 132 H Calcium 8.1 L Phosphorus Lipase 1919 H Imaging: ITS Impressions Abdomen/Pelvis CT 05/02/18 15:10 CONCLUSION: 1. Anterior abdominal wall hernia containing a loop of small bowel with air and apparent surrounding inflammatory change. There is an abnormal bowel gas pattern and this is of concern for acute obstruction with possible strangulation. 2. New large cystic structure in the pelvis with air-fluid levels as well as additional cystic collections with air-fluid levels with represent additional phlegmon or abscesses. 3. Acute pancreatitis again noted with enlarged head of the pancreas with multiple calcifications and indistinctness. There are new cystic structures within the pancreas. There are multiple calcifications again noted. Pancreatic duct remains dilated. 4. Cirrhotic appearing liver with surrounding ascites. 5. Tiny gallstone again noted. Chest X-Ray 05/15/18 04:00 CONCLUSION: Slightly improved bibasilar airspace opacities. Physical Exam: GENERAL: on sedation, on the vent, awakens when stimulated. She is not in respiratory distress. SKIN: Cool and dry. No generalized rash HEAD: Atraumatic. Normocephalic. No temporal wasting, or tenderness. EYES: [place] conjunctiva. No petechia or hemorrhage. Pupils equal, round and reactive to light. No scleral icterus. No injection or drainage. EARS, NOSE AND THROAT: Nose without bleeding or purulent nasal discharge, has NGT in place. She is orally intubated.. NECK: Trachea midline. Supple and not tender, no meningeal signs CARDIOVASCULAR: Regular rate and rhythm. No murmurs, rubs or gallops heard RESPIRATORY: Scattered rhonchi, worse on R than L ABDOMEN: Mildly distended, has midline incision, oozing serous fluid in lower incision. One ILA in LLQ with serous fluid. Tender on palpation. Bowel sounds are hypoactive. EXTREMITIES: No clubbing, cyanosis, or edema. Well perfused and warm. NEUROLOGICAL: Sedated, opens eyes when stimulated PSYCHIATRIC: Unable to assess LINE: LSC line No evidence of infection Assessment and Plan - Plan Impression Sepsis with shock due to intraabdominal process Multiple intraabdominal and pelvic abscess, S/P lap and drainage of abscess - S/P reexploration and closure Respiratory failure New bilateral pulmonary infiltrates - ?PNA - ?ARDS - repeat sputum pending - CXR with some improvement Leukocytosis, better Renal insufficiency Recommendation Continue IV Vanco Continue Cefepime IV Continue Flagyl IV for anaerobes. Continue Diflucan GI yeast coverage. Monitor progress closely Weaning per CCM D/W TEJA
[2018-05-15] MEDS: Chlorhexidine 0.12% Oral Kit 15 ML UDC OROPHARYNG SCH ×2 (10:38→20:49)
[2018-05-15] MEDS: Insulin Detemir Inj 1,000 UNIT/10 ML Vial SQ SCH ×2 (10:38→21:55)
[2018-05-15] MEDS: fentaNYL 10 mcg/mL Premix Drip 2,500 MCG/250 ML BAG IV.SIG PRN (10:39)
[2018-05-15] MEDS: Famotidine PF Inj 20 MG/2 ML Vial IV.PUSH SCH ×2 (10:39→21:36)
[2018-05-15] MEDS: Potassium Chlor 40 mEq Premix 40 MEQ/100 ML PIGGYBACK IV.SIG PRN (10:45)
[2018-05-15] MEDS ORDERED: Vancomycin Inj 1,250 MG in Sodium Chlor 0.9% Inj 250 ML IV.SIG ONE (14:00)
--- NOTE | 2018-05-15 14:32 | P.PNCC ---
Subjective Subjective Remarks/Hospital Course: 42 year old female admitted for an evaluation of abdominal pain. The abdominal pain has acutely worsened today. Her pain pain has been present intermittently for about 2 weeks but it was not as severe in nature. She has been into the hospital previously and was told she has an abdominal ventral hernia. At that time there was no acute concerns or evidence of strangulation/incarceration. The CAT scan obtained in the emergency department showed large cystic structure in the pelvis with air-fluid levels as well as additional cystic collections with air-fluid levels which represent additional phlegmon or abscesses. She was taken emergently to operating room by Dr. Smith with finding of a fair amount of old blood that was in the abdomen and then down the pelvis as well as a fairly sizable abscess. She has had an abscess around the liver, which was evacuated and irrigated. A portion of the omentum was removed because it was partially necrotic. A second abscess was identified in a portion of the pouch of [place], which was evacuated, cultured as well. The abdomen was packed down the pelvis with two pads and then placed the VAC ABThera temporary closure device as the patient is planned to be brought back to operating room after stabilization in the intensive care unit. SUBJ 05/04: Remains intubated sedated remains critical. Currently on Dontrell- Synephrine to maintain map above 65. Hemoglobin came back at 6.2 ordered to receive 2 units of PRBC. White count is 28,000. Plan for OR 4 PM today. 05/05: Remains intubated and mechanically ventilated. Requiring vasopressor therapy with Dontrell-Synephrine to maintain suitable mean arterial pressure. White count markedly elevated. Abdominal closure yesterday. 05/06: Still requiring vasopressor support to maintain suitable blood pressure. Gas exchange has improved and we will start spontaneous breathing trials again today. White count declining. Renal function acceptable after an additional 3 L of saline were required yesterday. 05/07: During her period of florid sepsis she required considerable intravenous fluid in order to preserve renal function. It is now time to remove some of that fluid and she responded well to diuretics. Persistent leukocytosis is worrisome but overall she appears to be improving. Update 1200 hours: The patient's clinical condition has deteriorated over the past 6 hours, manifesting largely as respiratory distress and hypoxemia. It is tempting to attribute this largely to fluid overload following her extensive resuscitation but the declining bicarb level may well indicate worsening sepsis. 05/08: Continued deterioration and respiratory function overnight. This morning she is in full blown ARDS and will require reintubation and elevated airway pressures. We will obtain sputum on intubation and discuss antibiotic therapy with the infectious disease service. 05/09: Remains in ARDS. Oxygen diffusion gradient has been reduced by elevated mean airway pressures. Still vasopressor dependent and now anemic. No obvious source of blood loss. Remains critically ill and unstable. 05/10: Moves 4 limbs and responds. Gas exchange remains impaired but a little better than yesterday. Respiratory status remains unstable. Persistent elevation of lipase is concerning and it may be necessary to convert to parenteral nutrition. No evidence of bleeding. Will need to remove central line today 05/11: Still requiring vasopressor therapy undoubtedly due to low level ongoing sepsis. New lines have been placed, chest x-ray attempting to clear. Will try to lower airway pressures and perhaps convert back to conventional ventilation, allowing us to promote a diuresis. 05/12: We continued to lower mean airway pressure while maintaining recruitment. Gas exchange remains acceptable. Good response to diuretic therapy with 2 L negative balance yesterday. Finally off vasopressor support indicating resolution of sepsis. Lipase remains elevated, follow closely. 05/13: Weaning mean airway pressure lower. Coarse airway sounds and mild bronchospasm persists. Prerenal azotemia developing from diuresis will reduce diuretic dose. Lipase is finally returning toward normal. Consider restarting trickle feed tube feeds again. 05/14: Her septic course is very much improved. She remains persistently edematous. There are continued bilateral infiltrates on the chest x-ray and the left side density behind the heart sure looks like a pneumonia. Absence of leukocytosis belies that however. We have been slowly weaning her mean airway pressure and PEEP because she has problems with de-recruitment while resolving ARDS. 05/15: off vasopressors. still very encephalopathic. no improvement in pulmonary status- will likely require tracheostomy. significant edema and anasarca persists, although renal injury prevents us from diuresing more aggressively than we already are. Objective Vital Signs / I&O: Vital Signs 05/14/18 15:49 05/14/18 16:00 05/14/18 18:00 Temperature 37.7 C H Pulse Rate 126 H 116 H Respiratory Rate 15 25 H Blood Pressure 123/83 Pulse Oximetry 98 96 08/26/18 20:00 05/14/18 21:15 05/14/18 22:00 Temperature 37.3 C Pulse Rate 102 H 96 H Respiratory Rate 27 H 21 Blood Pressure Pulse Oximetry 96 97 05/15/18 00:00 05/15/18 00:16 05/15/18 02:00 Temperature 36.9 C Pulse Rate 94 H 96 H Respiratory Rate 23 23 Blood Pressure 117/87 Pulse Oximetry 98 99 05/15/18 03:55 05/15/18 04:00 05/15/18 06:00 Temperature 37.0 C Pulse Rate 102 H 104 H Respiratory Rate 25 H 26 H Blood Pressure 135/94 H Pulse Oximetry 98 98 05/15/18 08:00 05/15/18 08:59 05/15/18 10:00 Temperature 37.0 C Pulse Rate 115 H 123 H Respiratory Rate 24 26 H Blood Pressure 134/100 H Pulse Oximetry 95 95 05/15/18 12:00 05/15/18 13:22 Temperature 36.8 C Pulse Rate 131 H Respiratory Rate 28 H 25 H Blood Pressure 114/81 Pulse Oximetry 96 96 Intake & Output 05/14/18 05/15/18 05/15/18 18:59 06:59 18:59 Intake Total 600 / 600 1000 / 1000 2660.2 / 2660.2 Output Total 2635 / 2635 790 / 790 Balance -2035 / -2035 210 / 210 2660.2 / 2660.2 Weight 74.2 kg Intake: IV 600 / 600 1000 / 1000 2660.2 / 2660.2 Versed Inj 50 mg In 50 ml @ 2 100 / 100 MG/HR 2 mls/hr IV.CONT TITRATE PRN Rx#:[id number] Ofirmev Inj 1,000 mg In 100 ml 100 / 100 @ 400 mls/hr IV.SIG ONCE ONE Rx #:[id number] Flexbumin 25% Inj 100 ML @ 60 100 / 100 100 / 100 mls/hr IV.SIG Q12H [facility] Rx#: [id number] Maxipime Inj 2,000 MG In NS Inj 100 / 100 100 / 100 100 / 100 100 ML @ 200 mls/hr IV.SIG Q12H [facility] Rx#:[id number] Intralipid 20% Inj 250 ML @ 31. 250 / 250 25 mls/hr IV.SIG Q24H [facility] Rx#: [id number] Diflucan 400 mg Premix Bag 200 200 / 200 200 / 200 ML @ 100 mls/hr IV.SIG Q24H [facility] Rx#:[id number] MVI-12 Inj 10 ML Folvite Inj 1 2009.2009.2 MG In TPN Fluid 2 Liter 2,000 ML @ 70 mls/hr IV.SIG DAILY@ 1999 [facility] Rx#:[id number] fentaNYL 10 mcg/mL Premix Drip 250 / 250 250 / 250 2,500 mcg In 250 ml @ 50 MCG/HR 5 mls/hr IV.SIG TITRATE PRN Rx #:[id number] Flagyl 500 MG Inj 100 ML @ 100 100 / 100 200 / 200 100 / 100 mls/hr IV.SIG Q8H [facility] Rx#: [id number] Output: Urine Amount (Catheter) 2525 / 2525 575 / 575 Indwelling Urethral Catheter 2525 / 2525 575 / 575 Gastric Drainage 100 / 100 200 / 200 Right Nare Nasogastric Tube 100 / 100 200 / 200 Wound Drainage # 1 Abdomen Other: # Bowel Movements 0 0 Result Diagrams: 05/14/18 04:30 05/15/18 04:15 Objective Remarks: GENERAL: 42 y/o woman, sedated, mechanically ventilated. SKIN: No generalized rash, no ecchymoses, generally edematous HEAD: Atraumatic. Normocephalic. EYES: Pupils equal, round and reactive to light. No conjunctival icterus. No injection or drainage. ENT: NGT in place. Oral tracheal intubation. NECK: Trachea midline. Supple CARDIOVASCULAR: Regular rate and rhythm. Off vasopressors RESPIRATORY: Coarse breath sounds bilaterally, scattered rhonchi. Good bilateral air entry. ABDOMEN: Closed abdomen. [place] drains draining serous fluid. Some serous drainage from lower midline wound EXTREMITIES: No clubbing, cyanosis. Extremities well perfused, considerable edema in extremities NEUROLOGICAL: Sedated lightly for vent synchrony. Withdraws 4 limbs to noxious stimulation. Opens eyes to voice. VIJAYA. does not follow commands today. Assessment and Plan - Assessment and Plan Plan: Assessment: 43yF with severe pelvic abscess and intra-abdominal septic shock, now resolving, with persistent acute hypoxic respiratory failure. will most likely require tracheostomy. agitation is an ongoing problem and will need to find parenteral solution as gut absorption is marginal at best. Acute hypoxic and hypercarbic Respiratory failure -Post operative and secondary to severe sepsis -Continue mechanical ventilation -SBT daily: failing for agitation -Vent bundle. DuoNeb's as needed -Extubated May 06, reintubated 05/08 for ARDS. APRV mode required. Agitated Delirium - start geodon 5mg IM q12h - haldol prn for breakthrough - daily sedation vacations Incarcerated strangulated Ventral hernia Abdominal abscesses Intra-abdominal sepsis Pelvic Inflammatory Disease -Status post exploratory laparotomy and washout -Follow-up cultures, negative to date -Empiric antibiotics and antifungal (IV Vanco, IV cefepime, IV Flagyl, IV Diflucan), adjust per ID service- would ideally like to de-escalate abx therapy. -ID consultation-Dr. Aguilar -Further management per general surgery -Pain controlled with fentanyl infusion and as needed IV push Septic shock- resolved -Vasopressor discontinued May 12. Anemia secondary to acute blood loss requiring transfusion -does not meet transfusion triggers today Acute intravascular volume overload Anasarca - increase concentrated albumin continue gentle forced diuresis Acute kidney injury - gentle forced diuresis. - JENNIFER multifactorial - trend daily bmp Acute protein calorie malnutrition- severe - continue full dose TPN DVT GI prophylaxis -Teds SCDs -Pharmacological DVT prophylaxis -Pepcid Overall impression: This woman remains critically ill following drainage of gram -negative intra-abdominal abscesses. The abdomen was closed 05/04 and the patient remains with low level sepsis, requiring vasopressor support with Dontrell- Synephrine. She is at high risk for subsequent intra-abdominal infections. Noteworthy is her recent clinical deterioration, she has now become unstable from a respiratory and hemodynamic standpoint and has required increased vasopressor support. Reintubation and mechanical ventilation was required as she continued to deteriorate in sepsis and ARDS. Starting to make some progress with fluid mobilization and improved oxygen diffusion. Efforts to diuresis her have resulted in a prerenal azotemia.
[2018-05-15] MEDS ORDERED: Haloperidol Inj 5 MG/ML Ampul IV.PUSH PRN (14:33)
--- NOTE | 2018-05-15 15:11 | P.DIET ---
Nutritional Evaluation Type of nutrition evaluation: follow-up Nutrition consult regarding: Tube Feeding, TPN/PPN Objective - Diagnosis Abdominal Ventral Wall Hernia Incarceration - Objective % IBW: 126 (IBW = 110#) Body Weight Used for Calculations: Actual (63.1 kg) Energy Needs - Lower Range (kCal/kg): 25 Energy Needs - Upper Range (kCal/kg): 30 Lower Limit kCal/kg (kCals): 1,578 Upper Limit kCal/kg (kCals): 1,893 Lower Limit Protein Factor (Grams per Kg): 1.0 Upper Limit Protein Factor (Grams per Kg): 1.5 Lower Protein Needs (Protein): 63 Upper Protein Needs (Protein): 95 Dietitian Reviewed in Medical Record: Curent medications, Intake & Output, Labs , Medical history, TPN/PPN, Tube feeding Diet Order: NPO Objective Comments: Labs: TG 133 (05/09), glu 132, lip 1919 05/02 exp lap, partial omenectomy, abd wound vac 05/04 exp lap, rigid sigmoidoscopy, abdominal wash out, repair of incisional hernia Assessment Assessment: Pt remains vented with TF on hold. Receiving TPN/lipids: Clinimix E 5/20 @ 70 mls/hr with 20% lipids 250 mls/day to provide 1970 kcals and 84 gms protein. If pt tolerates trickle TF, lipids will not be needed. Request weekly TG while pt is on TPN. Significant wt changes noted; pt with anasarca and edema. Recommendations: TPN: Clinimix E 5/20 @ 70 mls/hr LIPIDS: 20% lipids 250 mls/day Trickle Feeds: Glucerna 1.5 @ 10 mls/hr as tolerated. Goal 50 mls/hr when appropriate. Dietitian to Monitor: Lab values, Intake & Output, Tube feeding tolerance, TPN/ PPN tolerance, Weight change, Medical course
[2018-05-15] MEDS ORDERED: Metoprolol Inj 5 MG/5 ML Vial IV.PUSH ONE (17:53)
[2018-05-15] MEDS ORDERED: Phenylephrine Inj 160 MG in Sodium Chlor 0.9% Inj 484 ML IV.CONT PRN (20:19)
[2018-05-15 21:56] LABS: Baso % (Auto) 0.4 % (0.0-2.0); Eos # (Auto) 0.3 th/mm3 (0.0-0.4); Eos % (Auto) 2.7 % (0.0-4.0); Hematocrit 22.2 % (35.0-46.0); Hemoglobin 7.1 gm/dL (11.6-15.3); Lymph # (Auto) 1.1 th/mm3 (1.0-4.8); Lymph % (Auto) 9.6 % (9.0-44.0); Mean Corpuscular HGB Conc 32.1 % (32.0-36.0); Mean Corpuscular Hemoglobin 29.2 pg (27.0-34.0); Mean Platelet Volume 11.8 fL (7.0-11.0); Mono % (Auto) 8.5 % (0.0-8.0); Neut # (Auto) 9.1 th/mm3 (1.8-7.7); Neut % (Auto) 78.8 % (16.0-70.0); Platelet Count 98 th/mm3 (150-450); Red Blood Count 2.43 mil/mm3 (4.00-5.30); Red Cell Distribution Width 15.1 % (11.6-17.2); White Blood Count 11.5 th/mm3 (4.0-11.0)
[2018-05-15 22:02] LABS: INR 1.8 Ratio; Prothrombin Time 18.4 sec (9.8-11.6)
[2018-05-15 22:08] LABS: Alanine Aminotransferase 9 U/L (10-53); Albumin 2.7 g/dL (3.4-5.0); Anion Gap 11 meq/L (5-15); Aspartate Aminotransferase 31 U/L (15-37); Blood Urea Nitrogen 40 mg/dL (7-18); Calcium 8.1 mg/dL (8.5-10.1); Carbon Dioxide 24.4 meq/L (21.0-32.0); Chloride 105 meq/L (98-107); Glomerular Filtration Rate 34 mL/min (>89); Glucose,Random 133 mg/dL (74-106); Magnesium 1.4 mg/dL (1.5-2.5); Potassium 3.8 meq/L (3.5-5.1); Sodium 140 meq/L (136-145)
[2018-05-15 22:11] LABS: Alkaline Phosphatase 326 U/L (45-117); Phosphorus 2.9 mg/dL (2.5-4.9); Total Protein 5.8 g/dL (6.4-8.2)
[2018-05-15 22:31] LABS: Eosinophils 2 % (0-4); Lymphocytes 6 % (9-44); Metamyelocytes 1 % (0-1); Monocytes 15 % (0-8); Myelocytes 1 % (0-0)
[2018-05-15 22:32] LABS: Platelet Morphology Normal (Normal); Toxic Granulation 2+; Toxic Vacuolation Present
[2018-05-16] MEDS: Magnesium Sulfate Inj 2 GM in Sodium Chlor 0.9% Inj 96 ML IV.SIG PRN (01:15)
[2018-05-16] MEDS: Oral Hygiene Kit OROPHARYNG SCH ×5 (01:16→23:59)
[2018-05-16] MEDS: Insulin NovoLOG Aspart Correctional Sugar Inj SQ SCH ×5 (01:16→23:59)
[2018-05-16] MEDS: fentaNYL 10 mcg/mL Premix Drip 2,500 MCG/250 ML BAG IV.SIG PRN ×2 (03:04→17:46)
[2018-05-16] MEDS: Albumin Human 25% Inj 100 ML IV.SIG SCH ×3 (06:12→22:25)
[2018-05-16] MEDS: Chlorhexidine 0.12% Oral Kit 15 ML UDC OROPHARYNG SCH ×2 (08:00→21:12)
[2018-05-16] MEDS: Midazolam 50 MG/50 ML Inj 50 MG/50 ML BAG IV.CONT PRN ×2 (09:20→22:24)
[2018-05-16] MEDS: Famotidine PF Inj 20 MG/2 ML Vial IV.PUSH SCH ×2 (09:53→21:19)
[2018-05-16] MEDS: Insulin Detemir Inj 1,000 UNIT/10 ML Vial SQ SCH ×2 (09:54→21:16)
[2018-05-16] MEDS: Multivitamin Inj 10 ML, Folic Acid Inj 1 MG in TPN Fluid 2 Liter 2,000 ML IV.SIG SCH ×2 (09:55→21:12)
--- NOTE | 2018-05-16 10:03 | P.PNCC ---
Subjective Subjective Remarks/Hospital Course: 42 year old female admitted for an evaluation of abdominal pain. The abdominal pain has acutely worsened today. Her pain pain has been present intermittently for about 2 weeks but it was not as severe in nature. She has been into the hospital previously and was told she has an abdominal ventral hernia. At that time there was no acute concerns or evidence of strangulation/incarceration. The CAT scan obtained in the emergency department showed large cystic structure in the pelvis with air-fluid levels as well as additional cystic collections with air-fluid levels which represent additional phlegmon or abscesses. She was taken emergently to operating room by Dr. Smith with finding of a fair amount of old blood that was in the abdomen and then down the pelvis as well as a fairly sizable abscess. She has had an abscess around the liver, which was evacuated and irrigated. A portion of the omentum was removed because it was partially necrotic. A second abscess was identified in a portion of the pouch of Casey, which was evacuated, cultured as well. The abdomen was packed down the pelvis with two pads and then placed the VAC ABThera temporary closure device as the patient is planned to be brought back to operating room after stabilization in the intensive care unit. SUBJ 05/04: Remains intubated sedated remains critical. Currently on Dontrell- Synephrine to maintain map above 65. Hemoglobin came back at 6.2 ordered to receive 2 units of PRBC. White count is 28,000. Plan for OR 4 PM today. 05/05: Remains intubated and mechanically ventilated. Requiring vasopressor therapy with Dontrell-Synephrine to maintain suitable mean arterial pressure. White count markedly elevated. Abdominal closure yesterday. 05/06: Still requiring vasopressor support to maintain suitable blood pressure. Gas exchange has improved and we will start spontaneous breathing trials again today. White count declining. Renal function acceptable after an additional 3 L of saline were required yesterday. 05/07: During her period of florid sepsis she required considerable intravenous fluid in order to preserve renal function. It is now time to remove some of that fluid and she responded well to diuretics. Persistent leukocytosis is worrisome but overall she appears to be improving. Update 1200 hours: The patient's clinical condition has deteriorated over the past 6 hours, manifesting largely as respiratory distress and hypoxemia. It is tempting to attribute this largely to fluid overload following her extensive resuscitation but the declining bicarb level may well indicate worsening sepsis. 05/08: Continued deterioration and respiratory function overnight. This morning she is in full blown ARDS and will require reintubation and elevated airway pressures. We will obtain sputum on intubation and discuss antibiotic therapy with the infectious disease service. 05/09: Remains in ARDS. Oxygen diffusion gradient has been reduced by elevated mean airway pressures. Still vasopressor dependent and now anemic. No obvious source of blood loss. Remains critically ill and unstable. 05/10: Moves 4 limbs and responds. Gas exchange remains impaired but a little better than yesterday. Respiratory status remains unstable. Persistent elevation of lipase is concerning and it may be necessary to convert to parenteral nutrition. No evidence of bleeding. Will need to remove central line today 05/11: Still requiring vasopressor therapy undoubtedly due to low level ongoing sepsis. New lines have been placed, chest x-ray attempting to clear. Will try to lower airway pressures and perhaps convert back to conventional ventilation, allowing us to promote a diuresis. 05/12: We continued to lower mean airway pressure while maintaining recruitment. Gas exchange remains acceptable. Good response to diuretic therapy with 2 L negative balance yesterday. Finally off vasopressor support indicating resolution of sepsis. Lipase remains elevated, follow closely. 05/13: Weaning mean airway pressure lower. Coarse airway sounds and mild bronchospasm persists. Prerenal azotemia developing from diuresis will reduce diuretic dose. Lipase is finally returning toward normal. Consider restarting trickle feed tube feeds again. 05/14: Her septic course is very much improved. She remains persistently edematous. There are continued bilateral infiltrates on the chest x-ray and the left side density behind the heart sure looks like a pneumonia. Absence of leukocytosis belies that however. We have been slowly weaning her mean airway pressure and PEEP because she has problems with de-recruitment while resolving ARDS. 05/15: off vasopressors. still very encephalopathic. no improvement in pulmonary status- will likely require tracheostomy. significant edema and anasarca persists, although renal injury prevents us from diuresing more aggressively than we already are. 05/16: hypotensive overnight requiring phenylephrine. this AM, remains tachycardic. trached at bedside for persistent respiratory failure. discussed with dr. smith- will need CT abd/pelvis to rule out abscess formation. we also discussed that she will need enteral access, and distal jejunostomy would be best past the pancreas, but open surgical procedure would be technically difficult and high risk. for now will leave NGT in place, but may need percutaneous GJ in the future. Objective Vital Signs / I&O: Vital Signs 05/15/18 10:00 05/15/18 12:00 05/15/18 13:22 Temperature 36.8 C Pulse Rate 123 H 131 H Respiratory Rate 28 H 25 H Blood Pressure 114/81 Pulse Oximetry 96 96 05/15/18 14:00 05/15/18 16:00 05/15/18 16:13 Temperature 37.9 C H Pulse Rate 134 H 139 H Respiratory Rate 28 H 28 H Blood Pressure 102/73 Pulse Oximetry 95 94 L 05/15/18 18:00 05/15/18 20:00 05/15/18 20:13 Temperature 38.2 C H Pulse Rate 145 H 122 H Respiratory Rate 23 26 H Blood Pressure 81/55 L Pulse Oximetry 96 95 05/15/18 20:16 05/15/18 22:00 05/15/18 23:50 Temperature Pulse Rate 119 H 116 H Respiratory Rate 25 H 27 H Blood Pressure Pulse Oximetry 96 05/16/18 00:00 05/16/18 02:00 05/16/18 03:27 Temperature Pulse Rate 107 H 110 H Respiratory Rate 25 H 24 Blood Pressure 117/75 Pulse Oximetry 97 96 05/16/18 04:00 05/16/18 05:15 05/16/18 05:30 Temperature 38.2 C H 37.3 C 37.4 C Pulse Rate 112 H 122 H 121 H Respiratory Rate 23 24 25 H Blood Pressure 122/86 112/77 118/82 Pulse Oximetry 97 96 97 05/16/18 06:00 05/16/18 09:00 Temperature Pulse Rate 118 H Respiratory Rate Blood Pressure Pulse Oximetry 97 Intake & Output 05/15/18 05/16/18 05/16/18 18:59 06:59 18:59 Intake Total 3505.2 / 3505.2 1820 / 1820 Output Total 1450 / 1450 1915 / 1915 Balance 2055.2 / 2055.2 -95 / -95 Weight 79.9 kg Intake: IV 3385.2 / 3385.2 1150 / 1150 Versed Inj 50 mg In 50 ml @ 2 50 / 50 MG/HR 2 mls/hr IV.CONT TITRATE PRN Rx#:[id number] Ofirmev Inj 1,000 mg In 100 ml 100 / 100 @ 400 mls/hr IV.SIG ONCE ONE Rx #:[id number] Flexbumin 25% Inj 100 ML @ 60 100 / 100 200 / 200 mls/hr IV.SIG Q8H [facility] Rx#: [id number] Maxipime Inj 2,000 MG In NS Inj 100 / 100 100 / 100 100 ML @ 200 mls/hr IV.SIG Q12H [facility] Rx#:[id number] Intralipid 20% Inj 250 ML @ 31. 250 / 250 25 mls/hr IV.SIG Q24H [facility] Rx#: [id number] Diflucan 400 mg Premix Bag 200 200 / 200 ML @ 100 mls/hr IV.SIG Q24H [facility] Rx#:[id number] MVI-12 Inj 10 ML Folvite Inj 1 2009. / 2009.2 MG In TPN Fluid 2 Liter 2,000 ML @ 70 mls/hr IV.SIG DAILY@ 1999 [facility] Rx#:[id number] Levophed-Dextrose 4 mg/250 ml 250 / 250 Drip 4 mg In 250 ml @ 2 MCG/MIN 7.5 mls/hr IV.SIG TITRATE PRN Rx#:[id number] KCl 40 mEq Premix Inj 40 meq In 100 / 100 100 ml @ 25 mls/hr IV.SIG Q2H [facility] Rx#:[id number] Vancomycin Inj 1,250 MG In NS 275 / 275 Inj 250 ML @ 275 mls/hr IV.SIG ONCE ONE Rx#:[id number] fentaNYL 10 mcg/mL Premix Drip 250 / 250 250 / 250 2,500 mcg In 250 ml @ 50 MCG/HR 5 mls/hr IV.SIG TITRATE PRN Rx #:[id number] Flagyl 500 MG Inj 100 ML @ 100 100 / 100 200 / 200 mls/hr IV.SIG Q8H [facility] Rx#: [id number] Tube Feeding 30 / 30 Tube Irrigant 60 / 60 Water Bolus Amount 120 / 120 120 / 120 Other 60 / 60 Rbc As-3 Leukoreduced Unit 60 / 60 [id number] Intake (Blood Product) Amt 400 / 400 Rbc As-3 Leukoreduced Unit 400 / 400 [id number] Output: Urine 190 / 190 Stool 0 / 0 0 / 0 Estimated Blood Loss 250 / 250 Urine Amount (Catheter) 1100 / 1100 1100 / 1100 Indwelling Urethral Catheter 1100 / 1100 1100 / 1100 Gastric Drainage 350 / 350 250 / 250 Right Nare Nasogastric Tube 350 / 350 250 / 250 Wound Drainage 125 / 125 # 1 Abdomen 25 / 25 Abdomen 100 / 100 Other: # Bowel Movements 0 Result Diagrams: 05/15/18 21:15 05/15/18 21:15 Objective Remarks: GENERAL: 42 y/o woman, sedated, mechanically ventilated. SKIN: No generalized rash, no ecchymoses, generally edematous HEAD: Atraumatic. Normocephalic. EYES: Pupils equal, round and reactive to light. No conjunctival icterus. No injection or drainage. ENT: NGT in place. Oral tracheal intubation. NECK: Trachea midline. Supple CARDIOVASCULAR: Regular rate and rhythm. Off vasopressors RESPIRATORY: Coarse breath sounds bilaterally, scattered rhonchi. Good bilateral air entry. ABDOMEN: Closed abdomen. Cristobal-Timmons drains draining serous fluid. Some serous drainage from lower midline wound EXTREMITIES: No clubbing, cyanosis. Extremities well perfused, considerable edema in extremities NEUROLOGICAL: Sedated lightly for vent synchrony. Withdraws 4 limbs to noxious stimulation. Opens eyes to voice. VIJAYA. does not follow commands today. Assessment and Plan - Assessment and Plan Plan: Assessment: 43yF with severe pelvic abscess and intra-abdominal septic shock, now resolving, with persistent acute hypoxic respiratory failure. trach today with dr. smith at bedside. CT abd/pelvis to eval for recurrent pelvic abscess. will delay GJ discussion until more acute medical problems addressed. Acute hypoxic and hypercarbic Respiratory failure -Post operative and secondary to severe sepsis -Continue mechanical ventilation -SBT daily: failing for agitation -Vent bundle. DuoNeb's as needed -Extubated May 06, reintubated 05/08 for ARDS. APRV mode required. - trach 05/[address] Smith Agitated Delirium - geodon 5mg IM q12h - haldol prn for breakthrough - daily sedation vacations Incarcerated strangulated Ventral hernia Abdominal abscesses Intra-abdominal sepsis Pelvic Inflammatory Disease -Status post exploratory laparotomy and washout -Follow-up cultures, negative to date -Empiric antibiotics and antifungal (IV Vanco, IV cefepime, IV Flagyl, IV Diflucan), adjust per ID service- would ideally like to de-escalate abx therapy. -ID consultation-Dr. Aguilar -Further management per general surgery -Pain controlled with fentanyl infusion and as needed IV push - CT abd/pelvis with PO contrast Septic shock- resolved -Vasopressor discontinued May 12. - phenylephrine restarted overnight 05/15 Anemia secondary to acute blood loss requiring transfusion -received 1 unit prbc overnight 05/15. recheck today. Acute intravascular volume overload Anasarca - increase concentrated albumin continue gentle forced diuresis Acute kidney injury - gentle forced diuresis. - JENNIFER multifactorial - trend daily bmp Acute protein calorie malnutrition- severe - continue full dose TPN DVT GI prophylaxis -Teds SCDs -Pharmacological DVT prophylaxis -Pepcid Overall impression: This woman remains critically ill following drainage of gram -negative intra-abdominal abscesses. The abdomen was closed 05/04 and the patient remains with low level sepsis, requiring vasopressor support with Dontrell- Synephrine. She is at high risk for subsequent intra-abdominal infections. Noteworthy is her recent clinical deterioration, she has now become unstable from a respiratory and hemodynamic standpoint and has required increased vasopressor support. Reintubation and mechanical ventilation was required as she continued to deteriorate in sepsis and ARDS. Starting to make some progress with fluid mobilization and improved oxygen diffusion. Efforts to diuresis her have resulted in a prerenal azotemia.
--- NOTE | 2018-05-16 10:10 | XR ---
EXAM DATE: 05/16/2018 10:02 AM EDT AGE/SEX: 43 years / Female INDICATIONS: S/p tracheostomy placement. CLINICAL DATA: This is the patient's initial encounter. Patient reports that signs and symptoms have been present for 1 week and indicates a pain score of Nonresponsive. MEDICAL/SURGICAL HISTORY: . pancreatitis, hypertension . abdominal surgery COMPARISON: [facility], CHEST 1V SINGLE AP, 05/15/2018. . FINDINGS: Tracheostomy tube, enteric tube, right subclavian line and EKG leads are noted. There is patchy conso lidation bilaterally increased from the previous study in greatest in the left lower lobe with air br onchogram formation. There may be a small left effusion. CONCLUSION: Worsening appearance of the chest. Electronically signed by: Holger Zaidi MD 05/16/2018 10:09 AM EDT
[2018-05-16] MEDS ORDERED: Diatrizoate Meglum/Diatrizoate Sod Liq 9 ML UDC PO SCH (10:15)
--- NOTE | 2018-05-16 10:17 | P.PCN ---
Date of procedure: 05/16/18 Procedure: Procedure: Diagnostic Fiberoptic Bronchoscopy Diagnosis: Chronic respiratory failure Indications: Need for placement of percutaneous dilation tracheostomy Consent: Written consent was obtained Anesthesia: Versed 10 mg IV, fentanyl 100 mcg IV, vecuronium 10 milligrams IV Description of the Procedure: The patient was sedated and mechanically ventilated. The patient was placed on 100% FIO2 and a volume control mode of ventilation. The fiberoptic bronchoscopy was inserted via oral endotracheal tube. The trachea, right and left mainstem bronchi, and sub-segmental bronchi were evaluated. The endobronchial anatomy was normal. At this point, the percutaneous dilation tracheostomy procedure was performed. The needle, guidewire, dilator, and tracheostomy were all performed under direct bronchoscopic guidance and visualization. Once the tracheostomy was in place, the bronchoscope was inserted through the tracheostomy, and the lumen of the tracheostomy was confirmed in the lumen of the trachea prior to any positive pressure ventilation. Findings: Minimal secretions. Successful placement of tracheostomy. BAL samples: No samples were sent. The patient tolerated the procedure well with no hemodynamic instability or hypoxia. There were no immediate complications noted. At the conclusion of the procedure, the patient was placed back on their pre-procedure ventilatory settings. There was minimal EBL. A chest x-ray has been ordered. I personally performed the procedure.
[2018-05-16 10:35] LABS: Hematocrit 23.1 % (35.0-46.0); Hemoglobin 7.8 gm/dL (11.6-15.3); Mean Corpuscular HGB Conc 33.6 % (32.0-36.0); Mean Corpuscular Volume 89.3 fL (80.0-100.0); Mean Platelet Volume 11.2 fL (7.0-11.0); Platelet Count 109 th/mm3 (150-450); Red Blood Count 2.59 mil/mm3 (4.00-5.30); Red Cell Distribution Width 14.9 % (11.6-17.2); White Blood Count 12.5 th/mm3 (4.0-11.0)
--- NOTE | 2018-05-16 10:35 | P.OP ---
- Preoperative Diagnosis (1) ARDS (adult respiratory distress syndrome) - Postoperative Diagnosis (1) ARDS (adult respiratory distress syndrome) Date of procedure: 05/16/18 Procedure: DATE OF PROCEDURE May 16, 2018 PREOP DIAGNOSIS: ventilator dependence POSTOP DIAGNOSIS: ventilator dependence PROCEDURE; Percutaneous Tracheostomy with bronchoscopic assistance. ANESTHESIA: IV sedation BRONCHOSCOPY done by [Dr. Garcia] ATTENDING SURGEON: Douglas Smith M.D. DETAILS of PROCEDURE: Patient was in the intensive care unit on the ventilator. Patient was identified. Routine time out was performed. Neck was prepped with Betadine that was in the tracheostomy kit. Trachea was identified in the midline 2 fingerbreadths above the sternal notch at the old tracheostomy scar site Area was anesthetized with the lidocaine supply within the tracheostomy Kit. 5mm horizontal incision is made. Angiocath was placed into the trachea. After air return a wire was threaded through the Angiocath. This was done under videoscopic surveillance by bronchoscopy. The blue rhino punch was then used to dilate up the tracheal track. Blue Rhino was then placed over the guidewire to dilate up the tracheal tract. The #8 Shiley tracheostomy was then placed over the Blue Rhino into the trachea. The Blue Rhino and the guidewire were removed. The tracheostomy was secured in place with the suture supply within the tracheostomy kit. Bronchoscopic evaluation showed the tracheostomy tube in good position with minimal bleeding. Sutured and dressing applied The patient was placed the on the ventilator in preprocedure state. Douglas Smith M.D. FACS. Anesthesia: GETA Surgeon: Douglas Smith MD Pathology: none sent
[2018-05-16 10:57] LABS: Alanine Aminotransferase 11 U/L (10-53); Albumin 2.8 g/dL (3.4-5.0); Alkaline Phosphatase 310 U/L (45-117); Anion Gap 13 meq/L (5-15); Aspartate Aminotransferase 31 U/L (15-37); Blood Urea Nitrogen 48 mg/dL (7-18); Calcium 7.9 mg/dL (8.5-10.1); Carbon Dioxide 22.4 meq/L (21.0-32.0); Chloride 105 meq/L (98-107); Glomerular Filtration Rate 30 mL/min (>89); Glucose,Random 131 mg/dL (74-106); Lipase 3006 U/L (73-393); Sodium 140 meq/L (136-145); Total Protein 6.1 g/dL (6.4-8.2)
--- NOTE | 2018-05-16 14:54 | P.PNID ---
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 Patient's last hospitalization was in March and at that time she presented with abdominal pain, and had pancreatitis. Her imaging studies did not show pancreatitis, pseudocyst, and an abdominal wall hernia. She she was discharged she has had on and off abdominal pain but he was not that bad, but on the day of admission she had an acute onset of severe abdominal pain. There is no mention of any fever chills or sweats. No nausea or vomiting. Imaging studies on this admission is showing incarcerated hernia and presence of intra-abdominal abscess. Surgery saw the patient, and she was taken to surgery and had exploratory laparotomy, drainage of multiple abscesses , perihepatic, and multiple intra-abdominal and pelvic abscesses. Her abdomen is currently open, and she has a wound VAC over her open abdominal incision. Patient currently is on sedation, on the respirator. She is on Dontrell-Synephrine. She is afebrile. Her white count on admission was 14,000, and it is 29,000 today. She is currently on Diflucan, Flagyl, and Levaquin. Infectious disease consultation has been requested to assist in evaluation and treatment of patient with intra-abdominal abscess. Had surgery: 05/04 1. Bilateral salpingo-oophorectomy by Dr. Catherine Escalera. 2. Abdominal washout, abdominal exploration. 3. Lysis of adhesions. 4. Removal of appendiceal stump from probable previously ruptured appendicitis. 5. Drainage of pelvic abscess with intra-abdominal drain. 6. Repair of incisional hernia with closure of abdomen. Notes reviewed Febrile overnight Back on pressors S/P trach today On the vent CXR worse Creatinine rising Platelet improving Sputum C/S negative 05/09 New sputum 05/14 negative Antibiotics: Cefepime Flagyl Vancomycin Diflucan Lines: central line RSC - 05/10 Past Medical History: Traumatic brain injury (Acute) H/O Meckel's diverticulum History of exploratory laparotomy (Acute) H/O abdominal surgery (Acute) H/O brain surgery (Chronic) History of orthopedic surgery Allergies/Adverse Reactions: Allergies amoxicillin Allergy (Severe, Verified 04/05/18 19:19) Hives penicillin G Allergy (Severe, Verified 04/05/18 19:19) Hives Objective Vital Signs 05/15/18 16:00 05/15/18 16:13 05/15/18 18:00 Temperature 100.3 F H Pulse Rate 139 H 145 H Respiratory Rate 28 H 28 H Blood Pressure 102/73 Pulse Oximetry 95 94 L 05/15/18 20:00 05/15/18 20:13 05/15/18 20:16 Temperature 100.7 F H Pulse Rate 122 H 119 H Respiratory Rate 23 26 H 25 H Blood Pressure 81/55 L Pulse Oximetry 96 95 05/15/18 22:00 05/15/18 23:50 05/16/18 00:00 Temperature Pulse Rate 116 H 107 H Respiratory Rate 27 H 25 H Blood Pressure 117/75 Pulse Oximetry 96 97 05/16/18 02:00 05/16/18 03:27 05/16/18 04:00 Temperature 100.7 F H Pulse Rate 110 H 112 H Respiratory Rate 24 23 Blood Pressure 122/86 Pulse Oximetry 96 97 05/16/18 05:15 05/16/18 05:30 05/16/18 06:00 Temperature 99.1 F 99.4 F Pulse Rate 122 H 121 H 118 H Respiratory Rate 24 25 H Blood Pressure 112/77 118/82 Pulse Oximetry 96 97 05/16/18 08:00 05/16/18 09:00 05/16/18 09:35 Temperature 99.9 F H Pulse Rate 131 H Respiratory Rate 26 H 19 Blood Pressure 132/91 H Pulse Oximetry 95 97 98 05/16/18 10:00 05/16/18 12:00 05/16/18 12:24 Temperature 98.9 F Pulse Rate 137 H 136 H Respiratory Rate 28 H 28 H Blood Pressure 109/72 Pulse Oximetry 94 L Intake & Output 05/15/18 05/16/18 05/16/18 18:59 06:59 18:59 Intake Total 3505.2 / 3505.2 1870 / 1870 2400 / 2400 Output Total 1450 / 1450 1915 / 1915 Balance 2055.2 / 2055.2 -45 / -45 2400 / 2400 Weight 79.9 kg Intake: IV 3385.2 / 3385.2 1200 / 1200 2400 / 2400 Versed Inj 50 mg In 50 ml @ 2 100 / 100 MG/HR 2 mls/hr IV.CONT TITRATE PRN Rx#:[id number] Ofirmev Inj 1,000 mg In 100 ml 100 / 100 @ 400 mls/hr IV.SIG ONCE ONE Rx #:[id number] Flexbumin 25% Inj 100 ML @ 60 100 / 100 200 / 200 100 / 100 mls/hr IV.SIG Q8H [facility] Rx#: [id number] Maxipime Inj 2,000 MG In NS Inj 100 / 100 100 / 100 100 / 100 100 ML @ 200 mls/hr IV.SIG Q12H [facility] Rx#:[id number] Intralipid 20% Inj 250 ML @ 31. 250 / 250 25 mls/hr IV.SIG Q24H [facility] Rx#: [id number] Diflucan 400 mg Premix Bag 200 200 / 200 200 / 200 ML @ 100 mls/hr IV.SIG Q24H [facility] Rx#:[id number] MVI-12 Inj 10 ML Folvite Inj 1 2009.2 / 2009.2 1999 / 1999 MG In TPN Fluid 2 Liter 2,000 ML @ 83 mls/hr IV.SIG DAILY@ 1999 [facility] Rx#:[id number] Levophed-Dextrose 4 mg/250 ml 250 / 250 Drip 4 mg In 250 ml @ 2 MCG/MIN 7.5 mls/hr IV.SIG TITRATE PRN Rx#:[id number] KCl 40 mEq Premix Inj 40 meq In 100 / 100 100 ml @ 25 mls/hr IV.SIG Q2H PRN Rx#:[id number] Vancomycin Inj 1,250 MG In NS 275 / 275 Inj 250 ML @ 275 mls/hr IV.SIG ONCE ONE Rx#:[id number] fentaNYL 10 mcg/mL Premix Drip 250 / 250 250 / 250 2,500 mcg In 250 ml @ 50 MCG/HR 5 mls/hr IV.SIG TITRATE PRN Rx #:[id number] Flagyl 500 MG Inj 100 ML @ 100 100 / 100 200 / 200 mls/hr IV.SIG Q8H [facility] Rx#: [id number] Tube Feeding 30 / 30 Tube Irrigant 60 / 60 Water Bolus Amount 120 / 120 120 / 120 Other 60 / 60 Rbc As-3 Leukoreduced Unit 60 / 60 [id number] Intake (Blood Product) Amt 400 / 400 Rbc As-3 Leukoreduced Unit 400 / 400 [id number] Output: Urine 190 / 190 Stool 0 / 0 0 / 0 Estimated Blood Loss 250 / 250 Urine Amount (Catheter) 1100 / 1100 1100 / 1100 Indwelling Urethral Catheter 1100 / 1100 1100 / 1100 Gastric Drainage 350 / 350 250 / 250 Right Nare Nasogastric Tube 350 / 350 250 / 250 Wound Drainage 125 / 125 # 1 Abdomen 25 / 25 Abdomen 100 / 100 Other: # Bowel Movements 0 05/14/18 18:50 Sputum - Endotracheal Gram Stain - Final 05/14/18 18:50 Sputum - Endotracheal Sputum Culture - Final No growth in 48 hours 05/09/18 00:26 Blood - Peripheral Aerobic Blood Culture - Final No growth in 5 days 05/09/18 00:26 Blood - Peripheral Anaerobic Blood Culture - Final QNS - See aerobic report. 05/09/18 01:35 Blood - Line Aerobic Blood Culture - Final No growth in 5 days 05/09/18 01:35 Blood - Line Anaerobic Blood Culture - Final No growth in 5 days Lab - Hematology Results 05/15/18 05/16/18 21:15 10:15 WBC 11.5 H 12.5 H RBC 2.43 L 2.59 L Hgb 7.1 L 7.8 L Hct 22.2 L 23.1 L MCV 91.0 89.3 MCH 29.2 30.0 MCHC 32.1 33.6 RDW 15.1 14.9 Plt Count 98 L 109 L MPV 11.8 H 11.2 H Prelim Diff (Auto) Slide review pending Neut % (Auto) 78.8 H Lymph % (Auto) 9.6 Story % (Auto) 8.5 H Eos % (Auto) 2.7 Baso % (Auto) 0.4 Neut # (Auto) 9.1 H Lymph # (Auto) 1.1 Story # (Auto) 1.0 H Eos # (Auto) 0.3 Baso # (Auto) 0.0 WBC Differential Manual diff final Seg Neuts % (Manual) 70 Band Neuts % (Manual) 4 Lymphocytes % (Manual) 6 L Monocytes % (Manual) 15 H Eosinophils % (Manual) 2 Basophils % (Manual) 1 Metamyelocytes % (Man) 1 Myelocytes % (Man) 1 H Abs Neuts (Manual) 8.7 H Differential Comment . Toxic Granulation 2+ H Toxic Vacuolation Present H Platelet Estimate Low L Platelet Morphology Normal Lab - Chemistry Results 08/05/14/18 05/14/18 16:58 20:45 23:36 Sodium Potassium 3.3 L Chloride Carbon Dioxide Anion Gap BUN Creatinine Estimated GFR POC Glucose 152 H 111 H Random Glucose Lactic Acid Calcium Phosphorus 2.4 L Magnesium Total Bilirubin AST ALT Alkaline Phosphatase Ammonia Total Protein Albumin Lipase 05/15/18 05/15/18 05/15/18 04:15 05:11 12:43 Sodium 141 Potassium 3.3 L Chloride 105 Carbon Dioxide 26.3 Anion Gap 10 BUN 35 H Creatinine 1.46 H Estimated GFR POC Glucose 120 H 190 H Random Glucose 132 H Lactic Acid Calcium 8.1 L Phosphorus Magnesium Total Bilirubin AST ALT Alkaline Phosphatase Ammonia Total Protein Albumin Lipase 1919 H 05/15/18 05/15/18 05/15/18 21:15 21:15 21:15 Sodium 140 Potassium 3.8 Chloride 105 Carbon Dioxide 24.4 Anion Gap 11 BUN 40 H Creatinine 1.64 H Estimated GFR 34 L POC Glucose Random Glucose 133 H Lactic Acid 1.6 Calcium 8.1 L Phosphorus 2.9 Magnesium 1.4 L Total Bilirubin 1.6 H AST 31 ALT 9 L Alkaline Phosphatase 326 H Ammonia 15 Total Protein 5.8 L D Albumin 2.7 L Lipase 05/15/18 05/16/18 05/16/18 21:52 00:53 05:42 Sodium Potassium Chloride Carbon Dioxide Anion Gap BUN Creatinine Estimated GFR POC Glucose 130 H 151 H 131 H Random Glucose Lactic Acid Calcium Phosphorus Magnesium Total Bilirubin AST ALT Alkaline Phosphatase Ammonia Total Protein Albumin Lipase 05/16/18 05/16/18 10:15 12:00 Sodium 140 Potassium 4.0 Chloride 105 Carbon Dioxide 22.4 Anion Gap 13 BUN 48 H Creatinine 1.81 H Estimated GFR 30 L POC Glucose 136 H Random Glucose 131 H Lactic Acid Calcium 7.9 L Phosphorus Magnesium 2.0 D Total Bilirubin 1.3 H AST 31 ALT 11 Alkaline Phosphatase 310 H Ammonia Total Protein 6.1 L Albumin 2.8 L Lipase 3006 H Imaging: ITS Impressions Abdomen/Pelvis CT 05/02/18 15:10 CONCLUSION: 1. Anterior abdominal wall hernia containing a loop of small bowel with air and apparent surrounding inflammatory change. There is an abnormal bowel gas pattern and this is of concern for acute obstruction with possible strangulation. 2. New large cystic structure in the pelvis with air-fluid levels as well as additional cystic collections with air-fluid levels with represent additional phlegmon or abscesses. 3. Acute pancreatitis again noted with enlarged head of the pancreas with multiple calcifications and indistinctness. There are new cystic structures within the pancreas. There are multiple calcifications again noted. Pancreatic duct remains dilated. 4. Cirrhotic appearing liver with surrounding ascites. 5. Tiny gallstone again noted. Chest X-Ray 05/16/18 00:00 CONCLUSION: Worsening appearance of the chest. Physical Exam: GENERAL: on sedation, on the vent. She is not in respiratory distress. SKIN: Cool and dry. No generalized rash. Edematous HEAD: Atraumatic. Normocephalic. No temporal wasting, or tenderness. EYES: [place] conjunctiva. No petechia or hemorrhage. Pupils equal, round and reactive to light. No scleral icterus. No injection or drainage. EARS, NOSE AND THROAT: Nose without bleeding or purulent nasal discharge, has NGT in place. She is orally intubated.. NECK: S/P trach CARDIOVASCULAR: Regular rate and rhythm. No murmurs, rubs or gallops heard RESPIRATORY: Scattered rhonchi ABDOMEN: Mildly distended, has midline incision, oozing serous fluid in lower incision. One ILA in LLQ with serous fluid. Bowel sounds are hypoactive. EXTREMITIES: No clubbing, cyanosis, or edema. Well perfused and warm. NEUROLOGICAL: Sedated, opens eyes when stimulated PSYCHIATRIC: Unable to assess LINE: RSC line No evidence of infection Assessment and Plan - Plan Impression Sepsis with shock due to intraabdominal process Multiple intraabdominal and pelvic abscess, S/P lap and drainage of abscess - S/P reexploration and closure Respiratory failure New bilateral pulmonary infiltrates - ?PNA - ?ARDS - repeat sputum negative - CXR worse again Leukocytosis Renal insufficiency New fever Recommendation Stop IV Vanco Change Cefepime IV to Meropenem Stop Flagyl Change Diflucan to Micafungin For CT A/P Repeat 2 BC Monitor progress closely
[2018-05-16] MEDS ORDERED: ASP: Other exception documentation: ( ) OTHER PRN (14:56)
[2018-05-16] MEDS ORDERED: Meropenem Inj 1,000 MG in Sodium Chlor 0.9% Inj 100 ML IV.SIG STA (15:39)
--- NOTE | 2018-05-16 17:20 | CT ---
EXAM DATE: 05/16/2018 5:10 PM EDT AGE/SEX: 43 years / Female INDICATIONS: Abscess abdomen pain CLINICAL DATA: This is the patient's initial encounter. Patient reports that signs and symptoms have been present for 1 day and indicates a pain score of 4/10. MEDICAL/SURGICAL HISTORY: . Meckel diverticulum . exploratory lap RADIATION DOSE: 14.78 CTDI (mGy) [place] [facility] [place]. . TECHNIQUE: Multiple contiguous axial images were obtained through the abdomen. Images were obtained using multiple row detector helical technique. Using automated exposure control and adjustment of the mA and/or kV according to patient size, radiation dose was kept as low as reasonably achievable to o btain optimal diagnostic quality images. DICOM format image data is available electronically for rev iew and comparison. FINDINGS: Bilateral pleural effusions and dense consolidation of the lower lobes with air bronchogram formation , patchy lingular, and right middle lobe airspace disease also seen. There is diffuse body wall edema , and midline skin octavio are noted extending throughout the abdomen anteriorly. There is a surgical drain coiled in the pelvic region. There is diffuse body wall edema and induration of the subcutaneo us tissues noted. No evidence of bowel obstruction. There is an anastomotic staple line of the distal ileum in the right lower quadrant. Mesenteric edema is noted. There are diffuse pancreatic calcifica tions identified, and the pancreatic head and uncinate process region enlarged and masslike measuring 6 x 7.5 cm in AP and transverse dimension. There is a small amount of air within the urinary bladder and a Franklin catheter is present. There is a small amount of free fluid in the lower abdomen and pelv is. There is abnormal circumferential bowel wall thickening involving the hepatic flexure and descend ing colon with surrounding inflammatory changes seen. There is caudate hypertrophy and a lobular live r characteristic of cirrhosis. Spleen, bilateral kidneys, adrenal glands unremarkable. The osseous st ructures are intact. CONCLUSION: 1. Diffuse body wall edema, small amount of ascites, and bilateral effusions and consolidation. 2. Abnormal bowel wall thickening involving the hepatic flexure and descending colon characteristic of colitis. 3. Mass like enlargement of the proximal pancreas with chronic pancreatitis calcifications noted. Electronically signed by: Holger Zaidi MD 05/16/2018 5:18 PM EDT
[2018-05-17] MEDS: Oral Hygiene Kit OROPHARYNG SCH ×4 (04:12→23:47)
[2018-05-17 05:36] LABS: Mean Corpuscular HGB Conc 33.1 % (32.0-36.0); Mean Corpuscular Hemoglobin 30.1 pg (27.0-34.0); Mean Corpuscular Volume 90.8 fL (80.0-100.0); Mean Platelet Volume 10.5 fL (7.0-11.0); Platelet Count 100 th/mm3 (150-450); Red Blood Count 2.31 mil/mm3 (4.00-5.30); Red Cell Distribution Width 15.1 % (11.6-17.2); White Blood Count 11.8 th/mm3 (4.0-11.0)
[2018-05-17 05:43] LABS: Hematocrit 20.9 % (35.0-46.0); Hemoglobin 6.9 gm/dL (11.6-15.3)
[2018-05-17 06:11] LABS: Albumin 2.8 g/dL (3.4-5.0); Anion Gap 11 meq/L (5-15); Aspartate Aminotransferase 59 U/L (15-37); Blood Urea Nitrogen 57 mg/dL (7-18); Calcium 8.3 mg/dL (8.5-10.1); Carbon Dioxide 22.5 meq/L (21.0-32.0); Chloride 104 meq/L (98-107); Glomerular Filtration Rate 27 mL/min (>89); Glucose,Random 103 mg/dL (74-106); Potassium 3.8 meq/L (3.5-5.1); Sodium 137 meq/L (136-145)
[2018-05-17 06:13] LABS: Alanine Aminotransferase 10 U/L (10-53)
[2018-05-17 06:15] LABS: Alkaline Phosphatase 312 U/L (45-117); Lipase 1922 U/L (73-393); Total Protein 6.2 g/dL (6.4-8.2)
[2018-05-17] MEDS: Insulin NovoLOG Aspart Correctional Sugar Inj SQ SCH ×4 (06:24→23:47)
[2018-05-17] MEDS: Albumin Human 25% Inj 100 ML IV.SIG SCH ×3 (06:25→22:23)
[2018-05-17] MEDS ORDERED: Sodium Chlor 0.9% Inj 250 ML IV.SIG SCH (07:00)
--- NOTE | 2018-05-17 07:30 | P.PNGS ---
Subjective Interval history: DAILY PROGRESS NOTE FOR SURGICAL ATTENDING, DR. RADHA FOY Patient still on the ventilator Receiving blood products this morning Physical Exam Vital signs: Vital Signs 05/16/18 08:00 05/16/18 09:00 05/16/18 09:35 Temperature 99.9 F H Pulse Rate 131 H Respiratory Rate 26 H 19 Blood Pressure 132/91 H Pulse Oximetry 95 97 98 05/16/18 10:00 05/16/18 12:00 05/16/18 12:24 Temperature 98.9 F Pulse Rate 137 H 136 H Respiratory Rate 28 H 28 H Blood Pressure 109/72 Pulse Oximetry 94 L 94 L 05/16/18 14:00 05/16/18 16:00 05/16/18 18:00 Temperature 98.8 F Pulse Rate 129 H 127 H 129 H Respiratory Rate 27 H Blood Pressure 109/72 Pulse Oximetry 94 L 05/16/18 20:00 05/16/18 20:36 05/16/18 22:00 Temperature 98.6 F Pulse Rate 122 H 123 H Respiratory Rate 16 25 H Blood Pressure 102/69 Pulse Oximetry 100 95 05/17/18 00:00 05/17/18 00:21 05/17/18 02:00 Temperature 98.6 F Pulse Rate 122 H 123 H Respiratory Rate 15 21 Blood Pressure 103/71 Pulse Oximetry 96 97 05/17/18 03:39 05/17/18 04:00 05/17/18 06:00 Temperature 98.7 F Pulse Rate 123 H 123 H Respiratory Rate 31 H 15 Blood Pressure 105/71 Pulse Oximetry 95 94 L 05/17/18 07:20 Temperature 98.8 F Pulse Rate 128 H Respiratory Rate 28 H Blood Pressure 105/67 Pulse Oximetry 93 L Intake & Output 05/16/18 05/17/18 05/17/18 18:59 06:59 18:59 Intake Total 3290 / 3290 1350 / 1350 0 / 0 Output Total 1000 / 1000 655 / 655 Balance 2290 / 2290 695 / 695 0 / 0 Weight 80.7 kg Intake: IV 3050 / 3050 1350 / 1350 Versed Inj 50 mg In 50 ml @ 2 50 / 50 MG/HR 2 mls/hr IV.CONT TITRATE PRN Rx#:[id number] Flexbumin 25% Inj 100 ML @ 60 200 / 200 100 / 100 mls/hr IV.SIG Q8H [facility] Rx#: [id number] Maxipime Inj 2,000 MG In NS Inj 100 / 100 100 ML @ 200 mls/hr IV.SIG Q12H [facility] Rx#:[id number] Diflucan 400 mg Premix Bag 200 200 / 200 ML @ 100 mls/hr IV.SIG Q24H [facility] Rx#:[id number] Magnesium Sulfate Inj 2 GM In 100 / 100 NS Inj 96 ML @ 50 mls/hr IV.SIG UNSCH PRN Rx#:[id number] Merrem Inj 1,000 MG In NS Inj 100 / 100 100 ML @ 200 mls/hr IV.SIG ONCE STA Rx#:[id number] Merrem Inj 500 MG In NS Inj 100 100 / 100 ML @ 200 mls/hr IV.SIG Q8H [facility] Rx#:[id number] Mycamine Inj 100 MG In NS Inj 100 / 100 100 ML @ 100 mls/hr IV.SIG Q24H [facility] Rx#:[id number] MVI-12 Inj 10 ML Folvite Inj 1 2000 / 2000 1000 / 1000 MG In TPN Fluid 2 Liter 2,000 ML @ 83 mls/hr IV.SIG DAILY@ 2000 [facility] Rx#:[id number] fentaNYL 10 mcg/mL Premix Drip 250 / 250 2,500 mcg In 250 ml @ 50 MCG/HR 5 mls/hr IV.SIG TITRATE PRN Rx #:[id number] Flagyl 500 MG Inj 100 ML @ 100 100 / 100 mls/hr IV.SIG Q8H [facility] Rx#: [id number] Water Bolus Amount 240 / 240 Intake (Blood Product) Amt 0 / 0 Rbc As-3 Leukoreduced Unit 0 / 0 [id number] Output: Stool 0 / 0 Urine Amount (Catheter) 525 / 525 400 / 400 Indwelling Urethral Catheter 525 / 525 400 / 400 Gastric Drainage 450 / 450 180 / 180 Right Nare Nasogastric Tube 450 / 450 180 / 180 Wound Drainage 25 / 25 75 / 75 # 1 Abdomen 25 / 25 75 / 75 Other: # Bowel Movements 0 0 Narrative: Intubated NG tube in place On ventilator Abd: midline incision with octavio in place; clear serous drainage on drainage pad; third spacing edema in the inferior portion of the incision 2+ pitting edema in BLE - Additional findings Additional findings: ITS Impressions Chest X-Ray 05/16/18 00:00 CONCLUSION: Worsening appearance of the chest. Abdomen/Pelvis CT 05/16/18 09:39 CONCLUSION: 1. Diffuse body wall edema, small amount of ascites, and bilateral effusions and consolidation. 2. Abnormal bowel wall thickening involving the hepatic flexure and descending colon characteristic of colitis. 3. Mass like enlargement of the proximal pancreas with chronic pancreatitis calcifications noted. Abnormal lab results 05/16/18 05/16/18 05/16/18 Range/Units 02:54 10:15 10:15 WBC 12.5 H (4.0-11.0) th/mm3 RBC 2.59 L (4.00-5.30) mil/mm3 Hgb 7.8 L (11.6-15.3) gm/dL Hct 23.1 L (35.0-46.0) % Plt Count 109 L (150-450) th/mm3 MPV 11.2 H (7.0-11.0) fL BUN 48 H (7-18) mg/dL Creatinine 1.81 H (0.50-1.00) mg/dL Estimated GFR 30 L (>89) mL/min POC Glucose (68-110) mg/dl Random Glucose 131 H (74-106) mg/dL Calcium 7.9 L (8.5-10.1) mg/dL Total Bilirubin 1.3 H (0.2-1.0) mg/dL AST (15-37) U/L Alkaline Phosphatase 310 H (45-117) U/L Total Protein 6.1 L (6.4-8.2) g/dL Albumin 2.8 L (3.4-5.0) g/dL Lipase 3006 H (73-393) U/L MTS Gel Crossmatch See Detail 05/16/18 05/16/18 05/16/18 Range/Units 12:00 17:57 23:47 WBC (4.0-11.0) th/mm3 RBC (4.00-5.30) mil/mm3 Hgb (11.6-15.3) gm/dL Hct (35.0-46.0) % Plt Count (150-450) th/mm3 MPV (7.0-11.0) fL BUN (7-18) mg/dL Creatinine (0.50-1.00) mg/dL Estimated GFR (>89) mL/min POC Glucose 136 H 153 H 118 H (68-110) mg/dl Random Glucose (74-106) mg/dL Calcium (8.5-10.1) mg/dL Total Bilirubin (0.2-1.0) mg/dL AST (15-37) U/L Alkaline Phosphatase (45-117) U/L Total Protein (6.4-8.2) g/dL Albumin (3.4-5.0) g/dL Lipase (73-393) U/L MTS Gel Crossmatch 05/17/18 05/17/18 05/17/18 Range/Units 05:10 05:10 06:07 WBC 11.8 H (4.0-11.0) th/mm3 RBC 2.31 L (4.00-5.30) mil/mm3 Hgb 6.9 L* (11.6-15.3) gm/dL Hct 20.9 L* (35.0-46.0) % Plt Count 100 L (150-450) th/mm3 MPV (7.0-11.0) fL BUN 57 H (7-18) mg/dL Creatinine 1.99 H (0.50-1.00) mg/dL Estimated GFR 27 L (>89) mL/min POC Glucose (68-110) mg/dl Random Glucose (74-106) mg/dL Calcium 8.3 L (8.5-10.1) mg/dL Total Bilirubin 1.8 H (0.2-1.0) mg/dL AST 59 H (15-37) U/L Alkaline Phosphatase 312 H (45-117) U/L Total Protein 6.2 L (6.4-8.2) g/dL Albumin 2.8 L (3.4-5.0) g/dL Lipase 1922 H (73-393) U/L MTS Gel Crossmatch See Detail - Urinary Catheter Management Indwelling Urethral Catheter Cath placed during this visit: yes Reason for continuing: Acute urinary retention Insertion date: 05/03/18 Assessment and Plan - Assessment (1) ARDS (adult respiratory distress syndrome) Code(s): J80 - Acute respiratory distress syndrome Status: Acute (2) Anemia Code(s): D64.9 - Anemia, unspecified Status: Acute (3) Acute on chronic pancreatitis Code(s): K85.90 - Acute pancreatitis without necrosis or infection, unspecified ; K86.1 - Other chronic pancreatitis Status: Chronic - Plan Status post sepsis from severe PID status post exploration 2 with bilateral oophorectomy and drainage of abdominal and pelvic abscess ARDS Continue maximal medical support TPN Ileus replace potassium and magnesium as needed Antibiotics per infectious disease Will need enteral access NOTE FOR SURGICAL ATTENDING, DR. RADHA FOY I attest that I had a [id number] encounter with the patient on the same day, and personally performed and documented my assessment and findings in the medical record. The following services were provided during this hospital visit: Chart data review, vital sign assessments/reviewing monitor data Review of consultations notes if present. Medication orders/review and/or management Ordering and/or reviewing lab tests Ordering and/or interpreting/reviewing x-rays and/or diagnostic studies Care of the patient and discussion of the patient with the care team Documentation time To help prompt me to consider important information that might be impacting today's encounter and assessment, Information from prior notes written by myself or my colleagues may have been "brought forward/copy and pasted" into today's note. - Attending Attestation NOTE FOR SURGICAL ATTENDING, DR. RADHA FOY I attest that I had a [id number] encounter with the patient on the same day, and personally performed and documented my assessment and findings in the medical record. The following services were provided during this hospital visit: Chart data review, vital sign assessments/reviewing monitor data Review of consultations notes if present. Medication orders/review and/or management Ordering and/or reviewing lab tests Ordering and/or interpreting/reviewing x-rays and/or diagnostic studies Care of the patient and discussion of the patient with the care team Documentation time To help prompt me to consider important information that might be impacting today's encounter and assessment, Information from prior notes written by myself or my colleagues may have been "brought forward/copy and pasted" into today's note.
[2018-05-17] MEDS: Famotidine PF Inj 20 MG/2 ML Vial IV.PUSH SCH ×2 (09:12→20:07)
[2018-05-17] MEDS: Chlorhexidine 0.12% Oral Kit 15 ML UDC OROPHARYNG SCH ×2 (09:13→20:07)
[2018-05-17] MEDS: Insulin Detemir Inj 1,000 UNIT/10 ML Vial SQ SCH ×2 (09:14→20:07)
[2018-05-17] MEDS: fentaNYL 10 mcg/mL Premix Drip 2,500 MCG/250 ML BAG IV.SIG PRN (10:28)
[2018-05-17] MEDS: Midazolam 50 MG/50 ML Inj 50 MG/50 ML BAG IV.CONT PRN ×2 (12:25→12:39)
--- NOTE | 2018-05-17 13:19 | P.PNID ---
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 Patient's last hospitalization was in March and at that time she presented with abdominal pain, and had pancreatitis. Her imaging studies did not show pancreatitis, pseudocyst, and an abdominal wall hernia. She she was discharged she has had on and off abdominal pain but he was not that bad, but on the day of admission she had an acute onset of severe abdominal pain. There is no mention of any fever chills or sweats. No nausea or vomiting. Imaging studies on this admission is showing incarcerated hernia and presence of intra-abdominal abscess. Surgery saw the patient, and she was taken to surgery and had exploratory laparotomy, drainage of multiple abscesses , perihepatic, and multiple intra-abdominal and pelvic abscesses. Her abdomen is currently open, and she has a wound VAC over her open abdominal incision. Patient currently is on sedation, on the respirator. She is on Dontrell-Synephrine. She is afebrile. Her white count on admission was 14,000, and it is 29,000 today. She is currently on Diflucan, Flagyl, and Levaquin. Infectious disease consultation has been requested to assist in evaluation and treatment of patient with intra-abdominal abscess. Had surgery: 05/04 1. Bilateral salpingo-oophorectomy by Dr. Catherine Escalera. 2. Abdominal washout, abdominal exploration. 3. Lysis of adhesions. 4. Removal of appendiceal stump from probable previously ruptured appendicitis. 5. Drainage of pelvic abscess with intra-abdominal drain. 6. Repair of incisional hernia with closure of abdomen. Notes reviewed Temps low grade overnight Off pressors On the vent CT A/P no new fluid collection, has bowel thickening L side, has increased pancreatic mass S/P trach 05/16 On the vent CXR worse Creatinine rising Platelet improving Sputum C/S negative 05/09 New sputum 05/14 negative Antibiotics: Meropenem Micafungin Lines: central line [facility] - 05/10 Past Medical History: Traumatic brain injury (Acute) H/O Meckel's diverticulum History of exploratory laparotomy (Acute) H/O abdominal surgery (Acute) H/O brain surgery (Chronic) History of orthopedic surgery Allergies/Adverse Reactions: Allergies amoxicillin Allergy (Severe, Verified 04/05/18 19:19) Hives penicillin G Allergy (Severe, Verified 04/05/18 19:19) Hives Objective Vital Signs 05/16/18 14:00 05/16/18 16:00 05/16/18 18:00 Temperature 98.8 F Pulse Rate 129 H 127 H 129 H Respiratory Rate 27 H Blood Pressure 109/72 Pulse Oximetry 94 L 05/16/18 20:00 05/16/18 20:36 05/16/18 22:00 Temperature 98.6 F Pulse Rate 122 H 123 H Respiratory Rate 16 25 H Blood Pressure 102/69 Pulse Oximetry 100 95 05/17/18 00:00 05/17/18 00:21 05/17/18 02:00 Temperature 98.6 F Pulse Rate 122 H 123 H Respiratory Rate 15 21 Blood Pressure 103/71 Pulse Oximetry 96 97 05/17/18 03:39 05/17/18 04:00 05/17/18 06:00 Temperature 98.7 F Pulse Rate 123 H 123 H Respiratory Rate 31 H 15 Blood Pressure 105/71 Pulse Oximetry 95 94 L 05/17/18 07:20 05/17/18 07:39 05/17/18 08:00 Temperature 98.8 F 99.1 F 98.6 F Pulse Rate 128 H 127 H 127 H Respiratory Rate 28 H 15 15 Blood Pressure 105/67 106/67 113/68 Pulse Oximetry 93 L 93 L 93 L 05/17/18 08:41 05/17/18 10:00 05/17/18 11:44 Temperature Pulse Rate 126 H 126 H Respiratory Rate 29 H 15 Blood Pressure Pulse Oximetry 94 L 05/17/18 12:00 05/17/18 12:09 Temperature 100.5 F H Pulse Rate 129 H Respiratory Rate 28 H 26 H Blood Pressure 100/65 Pulse Oximetry 93 L 92 L Intake & Output 05/16/18 05/17/18 05/17/18 18:59 06:59 18:59 Intake Total 3290 / 3290 1350 / 1350 1900 / 1900 Output Total 1000 / 1000 655 / 655 Balance 2290 / 2290 695 / 695 1900 / 1900 Weight 80.7 kg Intake: IV 3050 / 3050 1350 / 1350 1500 / 1500 Versed Inj 50 mg In 50 ml @ 2 50 / 50 50 / 50 MG/HR 2 mls/hr IV.CONT TITRATE PRN Rx#:[id number] Flexbumin 25% Inj 100 ML @ 60 200 / 200 100 / 100 100 / 100 mls/hr IV.SIG Q8H [facility] Rx#: [id number] Maxipime Inj 2,000 MG In NS Inj 100 / 100 100 ML @ 200 mls/hr IV.SIG Q12H [facility] Rx#:[id number] Diflucan 400 mg Premix Bag 200 200 / 200 ML @ 100 mls/hr IV.SIG Q24H [facility] Rx#:[id number] Magnesium Sulfate Inj 2 GM In 100 / 100 NS Inj 96 ML @ 50 mls/hr IV.SIG UNSCH PRN Rx#:[id number] Merrem Inj 1,000 MG In NS Inj 100 / 100 100 ML @ 200 mls/hr IV.SIG ONCE [facility] Rx#:[id number] Merrem Inj 500 MG In NS Inj 100 100 / 100 100 / 100 ML @ 200 mls/hr IV.SIG Q8H [facility] Rx#:[id number] Mycamine Inj 100 MG In NS Inj 100 / 100 100 ML @ 100 mls/hr IV.SIG Q24H [facility] Rx#:[id number] MVI-12 Inj 10 ML Folvite Inj 1 1999 / 1999 1000 / 1000 MG In TPN Fluid 2 Liter 2,000 ML @ 83 mls/hr IV.SIG DAILY@ 1999 [facility] Rx#:[id number] fentaNYL 10 mcg/mL Premix Drip 250 / 250 250 / 250 2,500 mcg In 250 ml @ 50 MCG/HR 5 mls/hr IV.SIG TITRATE PRN Rx #:[id number] Flagyl 500 MG Inj 100 ML @ 100 100 / 100 mls/hr IV.SIG Q8H [facility] Rx#: [id number] Water Bolus Amount 240 / 240 Intake (Blood Product) Amt 400 / 400 Rbc As-3 Leukoreduced Unit 400 / 400 [id number] Output: Stool 0 / 0 Urine Amount (Catheter) 525 / 525 400 / 400 Indwelling Urethral Catheter 525 / 525 400 / 400 Gastric Drainage 450 / 450 180 / 180 Right Nare Nasogastric Tube 450 / 450 180 / 180 Wound Drainage 25 / 25 75 / 75 # 1 Abdomen 75 / 75 Other: # Bowel Movements 0 0 05/16/18 15:26 Blood - Line Aerobic Blood Culture - Preliminary No growth in 1 day 08/28/18 15:26 Blood - Line Anaerobic Blood Culture - Preliminary No growth in 1 day 05/16/18 15:21 Blood - Peripheral Aerobic Blood Culture - Preliminary No growth in 1 day 05/16/18 15:21 Blood - Peripheral Anaerobic Blood Culture - Preliminary No growth in 1 day 05/14/18 18:50 Sputum - Endotracheal Gram Stain - Final 05/14/18 18:50 Sputum - Endotracheal Sputum Culture - Final No growth in 48 hours 05/09/18 00:26 Blood - Peripheral Aerobic Blood Culture - Final No growth in 5 days 05/09/18 00:26 Blood - Peripheral Anaerobic Blood Culture - Final QNS - See aerobic report. 05/09/18 01:35 Blood - Line Aerobic Blood Culture - Final No growth in 5 days 05/09/18 01:35 Blood - Line Anaerobic Blood Culture - Final No growth in 5 days Lab - Hematology Results 05/15/18 05/16/18 05/17/18 21:15 10:15 05:10 WBC 11.5 H 12.5 H 11.8 H RBC 2.43 L 2.59 L 2.31 L Hgb 7.1 L 7.8 L 6.9 L* Hct 22.2 L 23.1 L 20.9 L* MCV 91.0 89.3 90.8 MCH 29.2 30.0 30.1 MCHC 32.1 33.6 33.1 RDW 15.1 14.9 15.1 Plt Count 98 L 109 L 100 L MPV 11.8 H 11.2 H 10.5 Prelim Diff (Auto) Slide review pending Neut % (Auto) 78.8 H Lymph % (Auto) 9.6 [place] % (Auto) 8.5 H Eos % (Auto) 2.7 Baso % (Auto) 0.4 Neut # (Auto) 9.1 H Lymph # (Auto) 1.1 [place] # (Auto) 1.0 H Eos # (Auto) 0.3 Baso # (Auto) 0.0 WBC Differential Manual diff final Seg Neuts % (Manual) 70 Band Neuts % (Manual) 4 Lymphocytes % (Manual) 6 L Monocytes % (Manual) 15 H Eosinophils % (Manual) 2 Basophils % (Manual) 1 Metamyelocytes % (Man) 1 Myelocytes % (Man) 1 H Abs Neuts (Manual) 8.7 H Differential Comment . Toxic Granulation 2+ H Toxic Vacuolation Present H Platelet Estimate Low L Platelet Morphology Normal Lab - Chemistry Results 05/15/18 05/15/18 05/15/18 21:15 21:15 21:15 Sodium 140 Potassium 3.8 Chloride 105 Carbon Dioxide 24.4 Anion Gap 11 BUN 40 H Creatinine 1.64 H Estimated GFR 34 L POC Glucose Random Glucose 133 H Lactic Acid 1.6 Calcium 8.1 L Phosphorus 2.9 Magnesium 1.4 L Total Bilirubin 1.6 H AST 31 ALT 9 L Alkaline Phosphatase 326 H Ammonia 15 Total Protein 5.8 L D Albumin 2.7 L Lipase 05/15/18 05/16/18 05/16/18 21:52 00:53 05:42 Sodium Potassium Chloride Carbon Dioxide Anion Gap BUN Creatinine Estimated GFR POC Glucose 130 H 151 H 131 H Random Glucose Lactic Acid Calcium Phosphorus Magnesium Total Bilirubin AST ALT Alkaline Phosphatase Ammonia Total Protein Albumin Lipase 05/16/18 05/16/18 05/16/18 10:15 12:00 17:57 Sodium 140 Potassium 4.0 Chloride 105 Carbon Dioxide 22.4 Anion Gap 13 BUN 48 H Creatinine 1.81 H Estimated GFR 30 L POC Glucose 136 H 153 H Random Glucose 131 H Lactic Acid Calcium 7.9 L Phosphorus Magnesium 2.0 D Total Bilirubin 1.3 H AST 31 ALT 11 Alkaline Phosphatase 310 H Ammonia Total Protein 6.1 L Albumin 2.8 L Lipase 3006 H 05/16/18 05/17/18 05/17/18 23:47 05:10 09:00 Sodium 137 Potassium 3.8 Chloride 104 Carbon Dioxide 22.5 Anion Gap 11 BUN 57 H Creatinine 1.99 H Estimated GFR 27 L POC Glucose 118 H 109 Random Glucose 103 Lactic Acid Calcium 8.3 L Phosphorus Magnesium Total Bilirubin 1.8 H AST 59 H ALT 10 Alkaline Phosphatase 312 H Ammonia Total Protein 6.2 L Albumin 2.8 L Lipase 1922 H 05/17/18 11:51 Sodium Potassium Chloride Carbon Dioxide Anion Gap BUN Creatinine Estimated GFR POC Glucose 111 H Random Glucose Lactic Acid Calcium Phosphorus Magnesium Total Bilirubin AST ALT Alkaline Phosphatase Ammonia Total Protein Albumin Lipase Imaging: ITS Impressions Chest X-Ray 05/16/18 00:00 CONCLUSION: Worsening appearance of the chest. Abdomen/Pelvis CT 05/16/18 09:39 CONCLUSION: 1. Diffuse body wall edema, small amount of ascites, and bilateral effusions and consolidation. 2. Abnormal bowel wall thickening involving the hepatic flexure and descending colon characteristic of colitis. 3. Mass like enlargement of the proximal pancreas with chronic pancreatitis calcifications noted. Physical Exam: GENERAL: on sedation, on the vent. She is not in respiratory distress. SKIN: Cool and dry. No generalized rash. Edematous HEAD: Atraumatic. Normocephalic. No temporal wasting, or tenderness. EYES: [place] conjunctiva. No petechia or hemorrhage. Pupils equal, round and reactive to light. No scleral icterus. No injection or drainage. EARS, NOSE AND THROAT: Nose without bleeding or purulent nasal discharge. Moist mucosa NECK: S/P trach CARDIOVASCULAR: Regular rate and rhythm. No murmurs, rubs or gallops heard RESPIRATORY: Scattered rhonchi ABDOMEN: Mildly distended, has midline incision, oozing serous fluid in lower incision. One ILA in LLQ with serous fluid. Bowel sounds are hypoactive. EXTREMITIES: No clubbing, cyanosis, or edema. Well perfused and warm. NEUROLOGICAL: Sedated, opens eyes when stimulated PSYCHIATRIC: Unable to assess LINE: RSC line No evidence of infection Assessment and Plan - Plan Impression Sepsis with shock due to intraabdominal process Multiple intraabdominal and pelvic abscess, S/P lap and drainage of abscess - S/P reexploration and closure Respiratory failure New bilateral pulmonary infiltrates - ?PNA - ?ARDS - repeat sputum negative - CXR worse again Leukocytosis Renal insufficiency New fever, and shock, source? - has bowel wall thickening - increased pancreatic head, has known chronic pancreatitis - CXR worse again, more of fluid likely, ARDS Third spacing Recommendation Continue Meropenem Continue Micafungin Restart Flagyl D/W Dr Luu Get GI evaluation of bowel wall thickening and pancreas Follow new C/S Monitor progress
--- NOTE | 2018-05-17 13:42 | P.PNCC ---
Subjective Subjective Remarks/Hospital Course: 42 year old female admitted for an evaluation of abdominal pain. The abdominal pain has acutely worsened today. Her pain pain has been present intermittently for about 2 weeks but it was not as severe in nature. She has been into the hospital previously and was told she has an abdominal ventral hernia. At that time there was no acute concerns or evidence of strangulation/incarceration. The CAT scan obtained in the emergency department showed large cystic structure in the pelvis with air-fluid levels as well as additional cystic collections with air-fluid levels which represent additional phlegmon or abscesses. She was taken emergently to operating room by Dr. Smith with finding of a fair amount of old blood that was in the abdomen and then down the pelvis as well as a fairly sizable abscess. She has had an abscess around the liver, which was evacuated and irrigated. A portion of the omentum was removed because it was partially necrotic. A second abscess was identified in a portion of the pouch of [place], which was evacuated, cultured as well. The abdomen was packed down the pelvis with two pads and then placed the VAC ABThera temporary closure device as the patient is planned to be brought back to operating room after stabilization in the intensive care unit. SUBJ 05/04: Remains intubated sedated remains critical. Currently on Dontrell- Synephrine to maintain map above 65. Hemoglobin came back at 6.2 ordered to receive 2 units of PRBC. White count is 28,000. Plan for OR 4 PM today. 05/05: Remains intubated and mechanically ventilated. Requiring vasopressor therapy with Dontrell-Synephrine to maintain suitable mean arterial pressure. White count markedly elevated. Abdominal closure yesterday. 05/06: Still requiring vasopressor support to maintain suitable blood pressure. Gas exchange has improved and we will start spontaneous breathing trials again today. White count declining. Renal function acceptable after an additional 3 L of saline were required yesterday. 05/07: During her period of florid sepsis she required considerable intravenous fluid in order to preserve renal function. It is now time to remove some of that fluid and she responded well to diuretics. Persistent leukocytosis is worrisome but overall she appears to be improving. Update 1200 hours: The patient's clinical condition has deteriorated over the past 6 hours, manifesting largely as respiratory distress and hypoxemia. It is tempting to attribute this largely to fluid overload following her extensive resuscitation but the declining bicarb level may well indicate worsening sepsis. 05/08: Continued deterioration and respiratory function overnight. This morning she is in full blown ARDS and will require reintubation and elevated airway pressures. We will obtain sputum on intubation and discuss antibiotic therapy with the infectious disease service. 05/09: Remains in ARDS. Oxygen diffusion gradient has been reduced by elevated mean airway pressures. Still vasopressor dependent and now anemic. No obvious source of blood loss. Remains critically ill and unstable. 05/10: Moves 4 limbs and responds. Gas exchange remains impaired but a little better than yesterday. Respiratory status remains unstable. Persistent elevation of lipase is concerning and it may be necessary to convert to parenteral nutrition. No evidence of bleeding. Will need to remove central line today 05/11: Still requiring vasopressor therapy undoubtedly due to low level ongoing sepsis. New lines have been placed, chest x-ray attempting to clear. Will try to lower airway pressures and perhaps convert back to conventional ventilation, allowing us to promote a diuresis. 05/12: We continued to lower mean airway pressure while maintaining recruitment. Gas exchange remains acceptable. Good response to diuretic therapy with 2 L negative balance yesterday. Finally off vasopressor support indicating resolution of sepsis. Lipase remains elevated, follow closely. 05/13: Weaning mean airway pressure lower. Coarse airway sounds and mild bronchospasm persists. Prerenal azotemia developing from diuresis will reduce diuretic dose. Lipase is finally returning toward normal. Consider restarting trickle feed tube feeds again. 05/14: Her septic course is very much improved. She remains persistently edematous. There are continued bilateral infiltrates on the chest x-ray and the left side density behind the heart sure looks like a pneumonia. Absence of leukocytosis belies that however. We have been slowly weaning her mean airway pressure and PEEP because she has problems with de-recruitment while resolving ARDS. 05/15: off vasopressors. still very encephalopathic. no improvement in pulmonary status- will likely require tracheostomy. significant edema and anasarca persists, although renal injury prevents us from diuresing more aggressively than we already are. 05/16: hypotensive overnight requiring phenylephrine. this AM, remains tachycardic. trached at bedside for persistent respiratory failure. discussed with dr. smith- will need CT abd/pelvis to rule out abscess formation. we also discussed that she will need enteral access, and distal jejunostomy would be best past the pancreas, but open surgical procedure would be technically difficult and high risk. for now will leave NGT in place, but may need percutaneous GJ in the future. 05/17: very ill and toxic appearing today. more tachycardic. anemic requiring transfusion. febrile. not yet hypotensive. reviewed CT abd/pelvis with Dr. Smith: no drainable fluid collection. colon thickening concerning for colitis. no diarrhea. certainly this could be C. Difficile megacolon. lungs with bilateral lower lobe consolidations, but oxygenation has remained largely stable, and no new secretions. bronch yesterday with very clear bronchial tree and no evidence of purulent drainage. less likely pneumonic process. does clearly appear septic. discussed with Dr. Aguilar. patient broadened to micafungin/meropenem. will add back iv flagyl and po/pr vanc. unlikely to have meaningful gut absorption from po route, so vanc enemas empirically until ileus resolves. still grossly volume overloaded, but unable to diurese at this time due to sepsis. Objective Vital Signs / I&O: Vital Signs 05/16/18 14:00 05/16/18 16:00 05/16/18 18:00 Temperature 37.1 C Pulse Rate 129 H 127 H 129 H Respiratory Rate 27 H Blood Pressure 109/72 Pulse Oximetry 94 L 05/16/18 20:00 05/16/18 20:36 05/16/18 22:00 Temperature 37.0 C Pulse Rate 122 H 123 H Respiratory Rate 16 25 H Blood Pressure 102/69 Pulse Oximetry 100 95 05/17/18 00:00 05/17/18 00:21 05/17/18 02:00 Temperature 37.0 C Pulse Rate 122 H 123 H Respiratory Rate 15 21 Blood Pressure 103/71 Pulse Oximetry 96 97 05/17/18 03:39 05/17/18 04:00 05/17/18 06:00 Temperature 37.1 C Pulse Rate 123 H 123 H Respiratory Rate 31 H 15 Blood Pressure 105/71 Pulse Oximetry 95 94 L 05/17/18 07:20 05/17/18 07:39 05/17/18 08:00 Temperature 37.1 C 37.3 C 37.0 C Pulse Rate 128 H 127 H 127 H Respiratory Rate 28 H 15 15 Blood Pressure 105/67 106/67 113/68 Pulse Oximetry 93 L 93 L 93 L 05/17/18 08:41 05/17/18 10:00 05/17/18 11:44 Temperature Pulse Rate 126 H 126 H Respiratory Rate 29 H 15 Blood Pressure Pulse Oximetry 94 L 05/17/18 12:00 05/17/18 12:09 Temperature 38.1 C H Pulse Rate 129 H Respiratory Rate 28 H 26 H Blood Pressure 100/65 Pulse Oximetry 93 L 92 L Intake & Output 05/16/18 05/17/18 05/17/18 18:59 06:59 18:59 Intake Total 3290 / 3290 1350 / 1350 1900 / 1900 Output Total 1000 / 1000 655 / 655 Balance 2290 / 2290 695 / 695 1900 / 1900 Weight 80.7 kg Intake: IV 3050 / 3050 1350 / 1350 1500 / 1500 Versed Inj 50 mg In 50 ml @ 2 50 / 50 50 / 50 MG/HR 2 mls/hr IV.CONT TITRATE PRN Rx#:[id number] Flexbumin 25% Inj 100 ML @ 60 200 / 200 100 / 100 100 / 100 mls/hr IV.SIG Q8H [facility] Rx#: [id number] Maxipime Inj 2,000 MG In NS Inj 100 / 100 100 ML @ 200 mls/hr IV.SIG Q12H [facility] Rx#:[id number] Diflucan 400 mg Premix Bag 200 200 / 200 ML @ 100 mls/hr IV.SIG Q24H [facility] Rx#:[id number] Magnesium Sulfate Inj 2 GM In 100 / 100 NS Inj 96 ML @ 50 mls/hr IV.SIG UNSCH PRN Rx#:[id number] Merrem Inj 1,000 MG In NS Inj 100 / 100 100 ML @ 200 mls/hr IV.SIG ONCE [facility] Rx#:[id number] Merrem Inj 500 MG In NS Inj 100 100 / 100 100 / 100 ML @ 200 mls/hr IV.SIG Q8H [facility] Rx#:[id number] Mycamine Inj 100 MG In NS Inj 100 / 100 100 ML @ 100 mls/hr IV.SIG Q24H [facility] Rx#:[id number] MVI-12 Inj 10 ML Folvite Inj 1 2000 / 1999 1000 / 1000 MG In TPN Fluid 2 Liter 2,000 ML @ 83 mls/hr IV.SIG DAILY@ 1999 [facility] Rx#:[id number] fentaNYL 10 mcg/mL Premix Drip 250 / 250 250 / 250 2,500 mcg In 250 ml @ 50 MCG/HR 5 mls/hr IV.SIG TITRATE PRN Rx #:[id number] Flagyl 500 MG Inj 100 ML @ 100 100 / 100 mls/hr IV.SIG Q8H [facility] Rx#: [id number] Water Bolus Amount 240 / 240 Intake (Blood Product) Amt 400 / 400 Rbc As-3 Leukoreduced Unit 400 / 400 [id number] Output: Stool 0 / 0 Urine Amount (Catheter) 525 / 525 400 / 400 Indwelling Urethral Catheter 525 / 525 400 / 400 Gastric Drainage 450 / 450 180 / 180 Right Nare Nasogastric Tube 450 / 450 180 / 180 Wound Drainage 25 / 25 75 / 75 # 1 Abdomen 25 / 25 75 / 75 Other: # Bowel Movements 0 0 Result Diagrams: 05/17/18 05:10 05/17/18 05:10 Objective Remarks: GENERAL: 42 y/o woman, sedated, mechanically ventilated. SKIN: No generalized rash, no ecchymoses, generally edematous HEAD: Atraumatic. Normocephalic. EYES: Pupils equal, round and reactive to light. No conjunctival icterus. No injection or drainage. ENT: NGT in place. s/p 8.0 shiley cuffed trach. NECK: Trachea midline. Supple CARDIOVASCULAR: Regular rate and rhythm. Off vasopressors RESPIRATORY: Coarse breath sounds bilaterally, scattered rhonchi. Good bilateral air entry. tachypneic. ABDOMEN: Closed abdomen. [place] drains draining serous fluid. anasarca. EXTREMITIES: No clubbing, cyanosis. Extremities well perfused, considerable edema in extremities NEUROLOGICAL: Sedated lightly for vent synchrony. Withdraws 4 limbs to noxious stimulation. does not follow commands. Assessment and Plan - Assessment and Plan Plan: Assessment: 43yF with severe pelvic abscess and intra-abdominal septic shock, with persistent acute hypoxic respiratory failure. clinically much worse today than yesterday. appears new and worsening septic shock. will treat empirically for c. diff megacolon in addition to broad spectrum antibiotics with meropenem and micafungin. Acute hypoxic and hypercarbic Respiratory failure -Post operative and secondary to severe sepsis -Continue mechanical ventilation -SBT daily: failing for agitation -Vent bundle. DuoNeb's as needed -Extubated May 06, reintubated 05/08 for ARDS. APRV mode required. - trach 05/[address] Smith Agitated Delirium - no improvement with geodon/haldol. now with new acute sepsis. will d/c geodon/ haldol and continue with fentanyl/propofol while critically ill. - daily sedation vacations - prop/fent for goal RASS -2. Incarcerated strangulated Ventral hernia Abdominal abscesses Intra-abdominal sepsis Pelvic Inflammatory Disease -Status post exploratory laparotomy and washout -Follow-up cultures, negative to date -Empiric antibiotics and antifungal IV meropenem, micafungin. - ID following - add iv flagyl, po vanc, vanc enemas. -ID consultation-Dr. Aguilar -Further management per general surgery -Pain controlled with fentanyl infusion and as needed IV push Septic shock- recurrent -Vasopressor discontinued May 12. - phenylephrine restarted overnight 05/15, d/c 05/16. - today clinically appears toxic and in distress. likely new septic shock developing. Anemia secondary to acute blood loss requiring transfusion -received 1 unit prbc overnight 05/15. 1 additional unit prbc today 05/17. Acute intravascular volume overload Anasarca - albumin 25gm iv q8h - hold diuresis. Acute kidney injury - JENNIFER multifactorial - trend daily bmp - close uop monitoring. Acute protein calorie malnutrition- severe - continue full dose TPN DVT GI prophylaxis -Teds SCDs -SQH -Pepcid Overall impression: This woman remains critically ill following drainage of gram -negative intra-abdominal abscesses. The abdomen was closed 05/04 and the patient remains with low level sepsis, requiring vasopressor support with Dontrell- Synephrine. She is at high risk for subsequent intra-abdominal infections. no improvement and now worsening of organ function. new shock is worrisome. overall prognosis becoming quite poor. Critical care time: 67 minutes, exclusive of separately billable procedures. specifically managed worsening shock and hemodynamic instability. discussion with consultants.
[2018-05-17 16:11] LABS: ABG Base Excess -3.9 mmol/L (-2-2); ABG PCO2 33 mmHg (38-42); ABG PO2 60 mmHg (61-120)
--- NOTE | 2018-05-17 16:38 | P.PCN ---
Date of procedure: 05/17/18 Procedure: Procedure: Arterial Line Placement Right femoral arterial line Diagnosis: Septic shock Indications: Need for beat to beat hemodynamic monitoring Consent: Emergent Description of the Procedure: The right groin was prepped and draped sterilely. Ultrasound guidance was used to locate the right femoral artery. Under direct real-time ultrasound guidance, the artery was located and a needle was advanced into the artery. A 16 gauge, 20 cm catheter was advanced into the artery using a modified Seldinger technique. The catheter was sutured to the skin and a sterile dressing was applied. The catheter was connected to a pressure transducer and an arterial waveform was noted. There were no immediate complications noted. There was minimal EBL. I personally performed the procedure.
[2018-05-17] MEDS: Heparin - SQ 10,000 UNITS/ML Vial SQ SCH ×2 (18:10→21:56)
[2018-05-17] MEDS: Multivitamin Inj 10 ML, Folic Acid Inj 1 MG in TPN Fluid 2 Liter 2,000 ML IV.SIG SCH (22:23)
[2018-05-17] MEDS: [UNRECOGNIZED DRUG - OTHER] RECTAL SCH ×4 (22:59→23:48)
[2018-05-17] MEDS: SODIUM CHLORIDE 0.9% RECTAL SCH ×4 (22:59→23:48)
[2018-05-18] MEDS: fentaNYL 10 mcg/mL Premix Drip 2,500 MCG/250 ML BAG IV.SIG PRN ×2 (00:02→17:00)
[2018-05-18] MEDS: Oral Hygiene Kit OROPHARYNG SCH ×4 (03:50→23:22)
[2018-05-18] MEDS: Midazolam 50 MG/50 ML Inj 50 MG/50 ML BAG IV.CONT PRN ×2 (04:07→13:08)
[2018-05-18 05:34] LABS: Mean Corpuscular HGB Conc 32.3 % (32.0-36.0); Mean Corpuscular Volume 89.9 fL (80.0-100.0); Mean Platelet Volume 10.8 fL (7.0-11.0); Platelet Count 155 th/mm3 (150-450); Red Blood Count 2.29 mil/mm3 (4.00-5.30); White Blood Count 12.2 th/mm3 (4.0-11.0)
[2018-05-18 05:39] LABS: Hematocrit 20.6 % (35.0-46.0); Hemoglobin 6.7 gm/dL (11.6-15.3)
[2018-05-18 06:02] LABS: Albumin 2.9 g/dL (3.4-5.0); Anion Gap 12 meq/L (5-15); Aspartate Aminotransferase 62 U/L (15-37); Blood Urea Nitrogen 62 mg/dL (7-18); Calcium 8.1 mg/dL (8.5-10.1); Carbon Dioxide 20.3 meq/L (21.0-32.0); Chloride 104 meq/L (98-107); Glucose,Random 129 mg/dL (74-106); Potassium 4.3 meq/L (3.5-5.1); Sodium 136 meq/L (136-145)
[2018-05-18 06:03] LABS: Alanine Aminotransferase 12 U/L (10-53)
[2018-05-18 06:06] LABS: Alkaline Phosphatase 411 U/L (45-117); Lipase 2438 U/L (73-393); Total Protein 6.2 g/dL (6.4-8.2); Vancomycin,Random 17.1 Comment
[2018-05-18 06:46] LABS: ABG Base Excess -6.4 mmol/L (-2-2); ABG PCO2 41 mmHg (38-42); ABG PO2 237 mmHg (61-120)
[2018-05-18] MEDS: Heparin - SQ 10,000 UNITS/ML Vial SQ SCH ×3 (06:47→22:03)
[2018-05-18] MEDS: [UNRECOGNIZED DRUG - OTHER] RECTAL SCH ×8 (06:47→23:22)
[2018-05-18] MEDS: Insulin NovoLOG Aspart Correctional Sugar Inj SQ SCH ×4 (06:47→23:22)
[2018-05-18] MEDS: SODIUM CHLORIDE 0.9% RECTAL SCH ×8 (06:47→23:22)
[2018-05-18] MEDS ORDERED: Sodium Chlor 0.9% Inj 250 ML IV.SIG SCH (07:00)
[2018-05-18] MEDS: Albumin Human 25% Inj 100 ML IV.SIG SCH ×3 (07:09→22:04)
--- NOTE | 2018-05-18 08:18 | P.PNCC ---
Subjective Subjective Remarks/Hospital Course: 42 year old female admitted for an evaluation of abdominal pain. The abdominal pain has acutely worsened today. Her pain pain has been present intermittently for about 2 weeks but it was not as severe in nature. She has been into the hospital previously and was told she has an abdominal ventral hernia. At that time there was no acute concerns or evidence of strangulation/incarceration. The CAT scan obtained in the emergency department showed large cystic structure in the pelvis with air-fluid levels as well as additional cystic collections with air-fluid levels which represent additional phlegmon or abscesses. She was taken emergently to operating room by Dr. Smith with finding of a fair amount of old blood that was in the abdomen and then down the pelvis as well as a fairly sizable abscess. She has had an abscess around the liver, which was evacuated and irrigated. A portion of the omentum was removed because it was partially necrotic. A second abscess was identified in a portion of the pouch of Casey, which was evacuated, cultured as well. The abdomen was packed down the pelvis with two pads and then placed the VAC ABThera temporary closure device as the patient is planned to be brought back to operating room after stabilization in the intensive care unit. SUBJ 05/04: Remains intubated sedated remains critical. Currently on Dontrell- Synephrine to maintain map above 65. Hemoglobin came back at 6.2 ordered to receive 2 units of PRBC. White count is 28,000. Plan for OR 4 PM today. 05/05: Remains intubated and mechanically ventilated. Requiring vasopressor therapy with Dontrell-Synephrine to maintain suitable mean arterial pressure. White count markedly elevated. Abdominal closure yesterday. 05/06: Still requiring vasopressor support to maintain suitable blood pressure. Gas exchange has improved and we will start spontaneous breathing trials again today. White count declining. Renal function acceptable after an additional 3 L of saline were required yesterday. 05/07: During her period of florid sepsis she required considerable intravenous fluid in order to preserve renal function. It is now time to remove some of that fluid and she responded well to diuretics. Persistent leukocytosis is worrisome but overall she appears to be improving. Update 1200 hours: The patient's clinical condition has deteriorated over the past 6 hours, manifesting largely as respiratory distress and hypoxemia. It is tempting to attribute this largely to fluid overload following her extensive resuscitation but the declining bicarb level may well indicate worsening sepsis. 05/08: Continued deterioration and respiratory function overnight. This morning she is in full blown ARDS and will require reintubation and elevated airway pressures. We will obtain sputum on intubation and discuss antibiotic therapy with the infectious disease service. 05/09: Remains in ARDS. Oxygen diffusion gradient has been reduced by elevated mean airway pressures. Still vasopressor dependent and now anemic. No obvious source of blood loss. Remains critically ill and unstable. 05/10: Moves 4 limbs and responds. Gas exchange remains impaired but a little better than yesterday. Respiratory status remains unstable. Persistent elevation of lipase is concerning and it may be necessary to convert to parenteral nutrition. No evidence of bleeding. Will need to remove central line today 05/11: Still requiring vasopressor therapy undoubtedly due to low level ongoing sepsis. New lines have been placed, chest x-ray attempting to clear. Will try to lower airway pressures and perhaps convert back to conventional ventilation, allowing us to promote a diuresis. 05/12: We continued to lower mean airway pressure while maintaining recruitment. Gas exchange remains acceptable. Good response to diuretic therapy with 2 L negative balance yesterday. Finally off vasopressor support indicating resolution of sepsis. Lipase remains elevated, follow closely. 05/13: Weaning mean airway pressure lower. Coarse airway sounds and mild bronchospasm persists. Prerenal azotemia developing from diuresis will reduce diuretic dose. Lipase is finally returning toward normal. Consider restarting trickle feed tube feeds again. 05/14: Her septic course is very much improved. She remains persistently edematous. There are continued bilateral infiltrates on the chest x-ray and the left side density behind the heart sure looks like a pneumonia. Absence of leukocytosis belies that however. We have been slowly weaning her mean airway pressure and PEEP because she has problems with de-recruitment while resolving ARDS. 05/15: off vasopressors. still very encephalopathic. no improvement in pulmonary status- will likely require tracheostomy. significant edema and anasarca persists, although renal injury prevents us from diuresing more aggressively than we already are. 05/16: hypotensive overnight requiring phenylephrine. this AM, remains tachycardic. trached at bedside for persistent respiratory failure. discussed with dr. smith- will need CT abd/pelvis to rule out abscess formation. we also discussed that she will need enteral access, and distal jejunostomy would be best past the pancreas, but open surgical procedure would be technically difficult and high risk. for now will leave NGT in place, but may need percutaneous GJ in the future. 05/17: very ill and toxic appearing today. more tachycardic. anemic requiring transfusion. febrile. not yet hypotensive. reviewed CT abd/pelvis with Dr. Smith: no drainable fluid collection. colon thickening concerning for colitis. no diarrhea. certainly this could be C. Difficile megacolon. lungs with bilateral lower lobe consolidations, but oxygenation has remained largely stable, and no new secretions. bronch yesterday with very clear bronchial tree and no evidence of purulent drainage. less likely pneumonic process. does clearly appear septic. discussed with Dr. Aguilar. patient broadened to micafungin/meropenem. will add back iv flagyl and po/pr vanc. unlikely to have meaningful gut absorption from po route, so vanc enemas empirically until ileus resolves. still grossly volume overloaded, but unable to diurese at this time due to sepsis. 05/18: continues to clinically worsen. now more acidotic. fio2 up to 100% and oxygenation poor. CVP continues to uptrend and is now 26. now back on vasopressors. appears to be grossly volume overloaded, but likely in septic shock as well. started on vancomycin PO/NJ yesterday for empiric therapy for c. diff megacolon, despite only a small area of colon which has the appearance of colitis. anemic despite transfusion and now requiring 2 additional units prbc today. anasarca worse and now significant skin breakdown from weeping edema. critically ill and worse today than yesterday. may need to consider palliative care, as we are continuing to worsen despite our maximal efforts. Objective Vital Signs / I&O: Vital Signs 05/17/18 08:41 05/17/18 10:00 05/17/18 11:44 Temperature Pulse Rate 126 H 126 H Respiratory Rate 29 H 15 Blood Pressure Pulse Oximetry 94 L 05/17/18 12:00 05/17/18 12:09 05/17/18 14:00 Temperature 38.1 C H Pulse Rate 129 H 132 H Respiratory Rate 28 H 26 H Blood Pressure 100/65 Pulse Oximetry 93 L 92 L 05/17/18 15:53 05/17/18 16:36 05/17/18 17:59 Temperature Pulse Rate 135 H 140 H Respiratory Rate 32 H Blood Pressure Pulse Oximetry 100 05/17/18 18:11 05/17/18 20:00 05/17/18 20:23 Temperature 37.6 C Pulse Rate 132 H Respiratory Rate 25 H 20 18 Blood Pressure 92/53 L Pulse Oximetry 93 L 92 L 05/17/18 20:30 05/17/18 23:52 05/17/18 23:54 Temperature Pulse Rate 128 H 124 H Respiratory Rate 21 18 19 Blood Pressure Pulse Oximetry 94 L 05/18/18 00:00 05/18/18 04:00 05/18/18 04:16 Temperature 37.1 C 37.7 C H Pulse Rate 124 H 126 H 126 H Respiratory Rate 19 22 20 Blood Pressure 96/55 L 99/53 L Pulse Oximetry 94 L 94 L 94 L 05/18/18 07:47 Temperature Pulse Rate 130 H Respiratory Rate 21 Blood Pressure Pulse Oximetry 98 Intake & Output 05/17/18 05/18/18 05/18/18 18:59 06:59 18:59 Intake Total 2320 / 2320 2600 / 2600 Output Total 435 / 435 340 / 340 Balance 1885 / 1885 2260 / 2260 Weight 81.5 kg Intake: IV 1900 / 1900 2600 / 2600 Versed Inj 50 mg In 50 ml @ 2 50 / 50 50 / 50 MG/HR 2 mls/hr IV.CONT TITRATE PRN Rx#:[id number] Ofirmev Inj 1,000 mg In 100 ml 100 / 100 @ 400 mls/hr IV.SIG Q6H PRN Rx# :[id number] Flexbumin 25% Inj 100 ML @ 60 200 / 200 100 / 100 mls/hr IV.SIG Q8H [facility] Rx#: [id number] Merrem Inj 500 MG In NS Inj 100 200 / 200 100 / 100 ML @ 200 mls/hr IV.SIG Q8H [facility] Rx#:[id number] Mycamine Inj 100 MG In NS Inj 100 / 100 100 ML @ 100 mls/hr IV.SIG Q24H [facility] Rx#:[id number] MVI-12 Inj 10 ML Folvite Inj 1 1999 / 1999 MG In TPN Fluid 2 Liter 2,000 ML @ 83 mls/hr IV.SIG DAILY@ 1999 [facility] Rx#:[id number] NS Inj 250 ML @ 15 mls/hr IV. 100 / 100 SIG ONCE [facility] Rx#:[id number] fentaNYL 10 mcg/mL Premix Drip 250 / 250 250 / 250 2,500 mcg In 250 ml @ 50 MCG/HR 5 mls/hr IV.SIG TITRATE PRN Rx #:[id number] Tube Feeding 0 / 0 Water Bolus Amount 20 / 20 Intake (Blood Product) Amt 400 / 400 Rbc As-3 Leukoreduced Unit 400 / 400 [id number] Output: Stool 0 / 0 Urine Amount (Catheter) 300 / 300 150 / 150 Indwelling Urethral Catheter 300 / 300 150 / 150 Gastric Drainage 100 / 100 150 / 150 Right Nare Nasogastric Tube 100 / 100 150 / 150 Wound Drainage 35 / 35 40 / 40 # 1 Abdomen 35 / 35 40 / 40 Other: # Bowel Movements 0 Result Diagrams: 05/18/18 05:20 05/18/18 05:20 Objective Remarks: GENERAL: 42 y/o woman, sedated, mechanically ventilated. SKIN: No generalized rash, no ecchymoses, generally edematous HEAD: Atraumatic. Normocephalic. EYES: Pupils equal, round and reactive to light. No conjunctival icterus. No injection or drainage. ENT: NGT in place. s/p 8.0 shiley cuffed trach. NECK: Trachea midline. Supple CARDIOVASCULAR: Regular rate and rhythm. phenylephrine at 40 mcg/min. RESPIRATORY: Coarse breath sounds bilaterally, scattered rhonchi. Good bilateral air entry. tachypneic. PRVC 100% fio2, peep 12, spo2 94%. ABDOMEN: Closed abdomen. Cristobal-Timmons drains draining serous fluid. anasarca. EXTREMITIES: No clubbing, cyanosis. Extremities well perfused, considerable edema in extremities NEUROLOGICAL: Sedated lightly for vent synchrony. RASS -3 today. more somnolent /encephalopathic. Withdraws 4 limbs to noxious stimulation. does not follow commands. Assessment and Plan - Assessment and Plan Plan: Assessment: 43yF with severe pelvic abscess and intra-abdominal septic shock, with persistent acute hypoxic respiratory failure. clinically much worse today than yesterday. continues to remain in shock, although now has become so grossly volume overloaded that oxygenation has been impaired. now must attempt to diurese despite vasopressor use, as we are already on maximal vent settings. continue empiric antibiotic regimen. Prognosis now quite guarded and will talk to general surgery about palliative care involvement. critically ill today. Acute hypoxic and hypercarbic Respiratory failure- worsening. Pulmonary edema -Post operative and secondary to severe sepsis -Continue mechanical ventilation - no sbt today given severe hypoxemia. -Vent bundle. DuoNeb's as needed -Extubated May 06, reintubated 05/08 for ARDS. APRV mode required. - trach 05/[address] Smith - 100% fio2. increased peep to 12. - send sputum culture. - unlikely to be pneumonic process, but given acute shock and decompensation, have covered empirically with broad spectrum antibiotics. - more likely this is ongoing and worsening volume overload in the setting of distributive shock leading to severe refractory pulmonary edema. Agitated Delirium - no improvement with geodon/haldol. now with new acute sepsis. will d/c geodon/ haldol and continue with fentanyl/propofol while critically ill. - daily sedation vacations - prop/fent for goal RASS -2. Incarcerated strangulated Ventral hernia Abdominal abscesses Intra-abdominal sepsis Pelvic Inflammatory Disease -Status post exploratory laparotomy and washout -Follow-up cultures, negative to date -Empiric antibiotics and antifungal IV meropenem, micafungin. - ID following - iv flagyl, po vanc, vanc enemas. -ID consultation-Dr. Aguilar -Further management per general surgery -Pain controlled with fentanyl infusion and as needed IV push Septic shock- recurrent -Vasopressor discontinued May 12. - phenylephrine restarted overnight 05/15, d/c 05/16, restarted 05/17 overnight. now continues. - today clinically appears toxic and in distress. likely new septic shock developing. Anemia secondary to acute blood loss requiring transfusion -received 1 unit prbc overnight 05/15. 1 additional unit prbc 05/17. - 2 units prbc 05/18 Acute intravascular volume overload Anasarca - albumin 25gm iv q8h - will be forced to diurese despite organ failure as pulmonary edema and gross anasarca are now quite life-threatening. - bumex 4mg iv x 1 followed by drip at 2mg/hr. Acute kidney injury- worsening. - JENNIFER multifactorial - trend daily bmp - close uop monitoring. Acute protein calorie malnutrition- severe - continue full dose TPN DVT GI prophylaxis -Teds SCDs -SQH -Pepcid Overall impression: This woman remains critically ill following drainage of gram -negative intra-abdominal abscesses. The abdomen was closed 05/04 and the patient remains with recurrent septic shock on vasopressors. volume overload was already a problem and now with distributive shock has caused significant hypoxemia and impaired oxygenation. will attempt forced diuresis, but certainly could be at the cost of renal function. prognosis now appears quite guarded. Critical care time: 59 minutes, exclusive of separately billable procedures. specifically managed worsening shock and hypoxemia, volume overload, worsening kidney failure. discussion with consultants.
[2018-05-18] MEDS: Chlorhexidine 0.12% Oral Kit 15 ML UDC OROPHARYNG SCH ×2 (08:41→20:13)
[2018-05-18] MEDS: Insulin Detemir Inj 1,000 UNIT/10 ML Vial SQ SCH ×2 (08:51→20:13)
[2018-05-18] MEDS: Famotidine PF Inj 20 MG/2 ML Vial IV.PUSH SCH ×2 (10:08→20:13)
[2018-05-18] MEDS: Bumetanide Inj 25 MG/100 ML BAG IV.CONT SCH ×2 (10:11→21:45)
--- NOTE | 2018-05-18 10:40 | P.PNGS ---
Addendum entered and electronically signed by MATEO Lee 05/18/18 10: 40: ILA in place to abdomen with serous fluid; check UA Original Note: Subjective Interval history: DAILY PROGRESS NOTE FOR SURGICAL ATTENDING, DR. RADHA FOY Tachypneic; worsening renal function Physical Exam Vital signs: Vital Signs 05/17/18 11:44 05/17/18 12:00 05/17/18 12:09 Temperature 100.5 F H Pulse Rate 129 H Respiratory Rate 15 28 H 26 H Blood Pressure 100/65 Pulse Oximetry 93 L 92 L 05/17/18 14:00 05/17/18 15:53 05/17/18 16:36 Temperature Pulse Rate 132 H 135 H Respiratory Rate 32 H Blood Pressure Pulse Oximetry 100 05/17/18 17:59 05/17/18 18:11 05/17/18 20:00 Temperature 99.6 F Pulse Rate 140 H 132 H Respiratory Rate 25 H 20 Blood Pressure 92/53 L Pulse Oximetry 93 L 05/17/18 20:23 05/17/18 20:30 05/17/18 23:52 Temperature Pulse Rate 128 H Respiratory Rate 18 21 18 Blood Pressure Pulse Oximetry 92 L 94 L 08/29/18 23:54 05/18/18 00:00 05/18/18 04:00 Temperature 98.7 F 99.8 F H Pulse Rate 124 H 124 H 126 H Respiratory Rate 19 19 22 Blood Pressure 96/55 L 99/53 L Pulse Oximetry 94 L 94 L 05/18/18 04:16 05/18/18 07:47 05/18/18 08:35 Temperature 100.7 F H Pulse Rate 126 H 130 H 129 H Respiratory Rate 20 21 26 H Blood Pressure 102/57 L Pulse Oximetry 94 L 98 98 05/18/18 09:15 Temperature 101.0 F H Pulse Rate 129 H Respiratory Rate 25 H Blood Pressure 106/59 L Pulse Oximetry 96 Intake & Output 05/17/18 05/18/18 05/18/18 18:59 06:59 18:59 Intake Total 2320 / 2320 2600 / 2600 450 / 450 Output Total 435 / 435 340 / 340 Balance 1885 / 1885 2260 / 2260 450 / 450 Weight 81.5 kg Intake: IV 1900 / 1900 2600 / 2600 200 / 200 Versed Inj 50 mg In 50 ml @ 2 50 / 50 50 / 50 MG/HR 2 mls/hr IV.CONT TITRATE PRN Rx#:[id number] Ofirmev Inj 1,000 mg In 100 ml 100 / 100 @ 400 mls/hr IV.SIG Q6H PRN Rx# :[id number] Flexbumin 25% Inj 100 ML @ 60 200 / 200 100 / 100 100 / 100 mls/hr IV.SIG Q8H ALMA Rx#: [id number] Merrem Inj 500 MG In NS Inj 100 200 / 200 100 / 100 100 / 100 ML @ 200 mls/hr IV.SIG Q8H ALMA Rx#:[id number] Mycamine Inj 100 MG In NS Inj 100 / 100 100 ML @ 100 mls/hr IV.SIG Q24H ALMA Rx#:[id number] MVI-12 Inj 10 ML Folvite Inj 1 1999 / 1999 MG In TPN Fluid 2 Liter 2,000 ML @ 83 mls/hr IV.SIG DAILY@ 2000 ALMA Rx#:[id number] NS Inj 250 ML @ 15 mls/hr IV. 100 / 100 SIG ONCE ALMA Rx#:[id number] fentaNYL 10 mcg/mL Premix Drip 250 / 250 250 / 250 2,500 mcg In 250 ml @ 50 MCG/HR 5 mls/hr IV.SIG TITRATE PRN Rx #:[id number] Tube Feeding 0 / 0 Water Bolus Amount 20 / 20 Other 250 / 250 Rbc As-3 Leukoreduced Unit 250 / 250 [id number] Intake (Blood Product) Amt 400 / 400 0 / 0 Rbc As-3 Leukoreduced Unit 0 / 0 [id number] Rbc As-3 Leukoreduced Unit 400 / 400 [id number] Rbc As-3 Leukoreduced Unit 0 / 0 [id number] Output: Stool 0 / 0 Urine Amount (Catheter) 300 / 300 150 / 150 Indwelling Urethral Catheter 300 / 300 150 / 150 Gastric Drainage 100 / 100 150 / 150 Right Nare Nasogastric Tube 100 / 100 150 / 150 Wound Drainage 35 / 35 40 / 40 # 1 Abdomen 35 / 35 40 / 40 Other: # Bowel Movements 0 Narrative: Cardio: tachycardic Resp: tachypneic; labored breathing Abd: midline incision with copious weeping serous fluid--- mostly at inferior portion of wound 3+ pitting edema in BLE; 2+ pitting edema in BUE - Additional findings Additional findings: ITS Impressions Abnormal lab results 05/17/18 05/17/18 05/17/18 Range/Units 16:00 17:53 23:56 WBC (4.0-11.0) th/mm3 RBC (4.00-5.30) mil/mm3 Hgb (11.6-15.3) gm/dL Hct (35.0-46.0) % O2 Saturation 88 L* (90-100) % ABG pH (7.380-7.420) ABG pCO2 33 L (38-42) mmHg ABG pO2 60 L (61-120) mmHg ABG HCO3 20 L (22-26) mmol/L ABG O2 Content 8.7 L (12.0-20.0) Vol % ABG Base Excess -3.9 L (-2-2) mmol/L Hemoglobin 7.0 L* (12.0-16.0) G/DL Carbon Dioxide (21.0-32.0) meq/L BUN (7-18) mg/dL Creatinine (0.50-1.00) mg/dL POC Glucose 118 H 137 H (68-110) mg/dl Random Glucose (74-106) mg/dL Calcium (8.5-10.1) mg/dL Total Bilirubin (0.2-1.0) mg/dL AST (15-37) U/L Alkaline Phosphatase (45-117) U/L Total Protein (6.4-8.2) g/dL Albumin (3.4-5.0) g/dL Lipase (73-393) U/L Procalcitonin (0.00-0.08) ng/mL Urine Clarity (Clear) Urine Protein (Neg-Trace) mg/dL Urine Ketones (Negative) mg/dL Urine Occult Blood (Negative) Ur Leukocyte Esterase (Negative) Urine RBC (0-3) /hpf Urine WBC (0-5) /hpf Amorphous Sediment (None) /hpf Urine Bacteria (None) /hpf Urine Mucus (Occasional) /lpf MTS Gel Crossmatch 05/18/18 05/18/18 05/18/18 Range/Units 05:20 05:20 05:20 WBC 12.2 H (4.0-11.0) th/mm3 RBC 2.29 L (4.00-5.30) mil/mm3 Hgb 6.7 L* (11.6-15.3) gm/dL Hct 20.6 L* (35.0-46.0) % O2 Saturation (90-100) % ABG pH (7.380-7.420) ABG pCO2 (38-42) mmHg ABG pO2 (61-120) mmHg ABG HCO3 (22-26) mmol/L ABG O2 Content (12.0-20.0) Vol % ABG Base Excess (-2-2) mmol/L Hemoglobin (12.0-16.0) G/DL Carbon Dioxide 20.3 L (21.0-32.0) meq/L BUN 62 H (7-18) mg/dL Creatinine 2.31 H (0.50-1.00) mg/dL POC Glucose (68-110) mg/dl Random Glucose 129 H (74-106) mg/dL Calcium 8.1 L (8.5-10.1) mg/dL Total Bilirubin 1.9 H (0.2-1.0) mg/dL AST 62 H (15-37) U/L Alkaline Phosphatase 411 H (45-117) U/L Total Protein 6.2 L (6.4-8.2) g/dL Albumin 2.9 L (3.4-5.0) g/dL Lipase 2438 H (73-393) U/L Procalcitonin 4.98 H (0.00-0.08) ng/mL Urine Clarity (Clear) Urine Protein (Neg-Trace) mg/dL Urine Ketones (Negative) mg/dL Urine Occult Blood (Negative) Ur Leukocyte Esterase (Negative) Urine RBC (0-3) /hpf Urine WBC (0-5) /hpf Amorphous Sediment (None) /hpf Urine Bacteria (None) /hpf Urine Mucus (Occasional) /lpf MTS Gel Crossmatch 05/18/18 05/18/18 05/18/18 Range/Units 06:31 06:55 11:13 WBC (4.0-11.0) th/mm3 RBC (4.00-5.30) mil/mm3 Hgb (11.6-15.3) gm/dL Hct (35.0-46.0) % O2 Saturation (90-100) % ABG pH 7.29 L* (7.380-7.420) ABG pCO2 (38-42) mmHg ABG pO2 237 H (61-120) mmHg ABG HCO3 19 L (22-26) mmol/L ABG O2 Content 10.0 L (12.0-20.0) Vol % ABG Base Excess -6.4 L (-2-2) mmol/L Hemoglobin 6.9 L* (12.0-16.0) G/DL Carbon Dioxide (21.0-32.0) meq/L BUN (7-18) mg/dL Creatinine (0.50-1.00) mg/dL POC Glucose (68-110) mg/dl Random Glucose (74-106) mg/dL Calcium (8.5-10.1) mg/dL Total Bilirubin (0.2-1.0) mg/dL AST (15-37) U/L Alkaline Phosphatase (45-117) U/L Total Protein (6.4-8.2) g/dL Albumin (3.4-5.0) g/dL Lipase (73-393) U/L Procalcitonin (0.00-0.08) ng/mL Urine Clarity Turbid H (Clear) Urine Protein 100 H (Neg-Trace) mg/dL Urine Ketones Trace H (Negative) mg/dL Urine Occult Blood Moderate H (Negative) Ur Leukocyte Esterase Small H (Negative) Urine RBC 18 H (0-3) /hpf Urine WBC 54 H (0-5) /hpf Amorphous Sediment Occasional H (None) /hpf Urine Bacteria Few H (None) /hpf Urine Mucus Few H (Occasional) /lpf MTS Gel Crossmatch See Detail 05/18/18 05/18/18 Range/Units 12:13 13:00 WBC (4.0-11.0) th/mm3 RBC (4.00-5.30) mil/mm3 Hgb 8.9 L D (11.6-15.3) gm/dL Hct 27.2 L (35.0-46.0) % O2 Saturation (90-100) % ABG pH (7.380-7.420) ABG pCO2 (38-42) mmHg ABG pO2 (61-120) mmHg ABG HCO3 (22-26) mmol/L ABG O2 Content (12.0-20.0) Vol % ABG Base Excess (-2-2) mmol/L Hemoglobin (12.0-16.0) G/DL Carbon Dioxide (21.0-32.0) meq/L BUN (7-18) mg/dL Creatinine (0.50-1.00) mg/dL POC Glucose 136 H (68-110) mg/dl Random Glucose (74-106) mg/dL Calcium (8.5-10.1) mg/dL Total Bilirubin (0.2-1.0) mg/dL AST (15-37) U/L Alkaline Phosphatase (45-117) U/L Total Protein (6.4-8.2) g/dL Albumin (3.4-5.0) g/dL Lipase (73-393) U/L Procalcitonin (0.00-0.08) ng/mL Urine Clarity (Clear) Urine Protein (Neg-Trace) mg/dL Urine Ketones (Negative) mg/dL Urine Occult Blood (Negative) Ur Leukocyte Esterase (Negative) Urine RBC (0-3) /hpf Urine WBC (0-5) /hpf Amorphous Sediment (None) /hpf Urine Bacteria (None) /hpf Urine Mucus (Occasional) /lpf MTS Gel Crossmatch Chest X-Ray 05/16/18 00:00 CONCLUSION: Worsening appearance of the chest. Abdomen/Pelvis CT 05/16/18 09:39 CONCLUSION: 1. Diffuse body wall edema, small amount of ascites, and bilateral effusions and consolidation. 2. Abnormal bowel wall thickening involving the hepatic flexure and descending colon characteristic of colitis. 3. Mass like enlargement of the proximal pancreas with chronic pancreatitis calcifications noted. - Urinary Catheter Management Indwelling Urethral Catheter Cath placed during this visit: yes Reason for continuing: Hourly intake/output Insertion date: 05/03/18 Assessment and Plan - Assessment (1) ARDS (adult respiratory distress syndrome) Code(s): J80 - Acute respiratory distress syndrome Status: Acute (2) Anemia Code(s): D64.9 - Anemia, unspecified Status: Acute (3) Acute on chronic pancreatitis Code(s): K85.90 - Acute pancreatitis without necrosis or infection, unspecified ; K86.1 - Other chronic pancreatitis Status: Chronic - Attending Attestation NOTE FOR SURGICAL ATTENDING, DR. RADHA FOY Discussed with Dr. Garcia today Patient has becoming more unstable with multisystem organ failure on 100% oxygen. Agree with palliative care involvement agree with above assessment and plan. The exam, history, and the medical decision-making described in the above note were completed with the assistance of the mid-level provider. I reviewed and agree with the findings presented. I attest that I had a [id number] encounter with the patient on the same day, and personally performed and documented my assessment and findings in the medical record. The following services were provided during this hospital visit: Chart data review, vital sign assessments/reviewing monitor data Review of consultations notes if present. Medication orders/review and/or management Ordering and/or reviewing lab tests Ordering and/or interpreting/reviewing x-rays and/or diagnostic studies Care of the patient and discussion of the patient with the care team Documentation time To help prompt me to consider important information that might be impacting today's encounter and assessment, Information from prior notes written by myself or my colleagues may have been "brought forward/copy and pasted" into today's note.
--- NOTE | 2018-05-18 11:59 | P.PNID ---
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 Patient's last hospitalization was in March and at that time she presented with abdominal pain, and had pancreatitis. Her imaging studies did not show pancreatitis, pseudocyst, and an abdominal wall hernia. She she was discharged she has had on and off abdominal pain but he was not that bad, but on the day of admission she had an acute onset of severe abdominal pain. There is no mention of any fever chills or sweats. No nausea or vomiting. Imaging studies on this admission is showing incarcerated hernia and presence of intra-abdominal abscess. Surgery saw the patient, and she was taken to surgery and had exploratory laparotomy, drainage of multiple abscesses , perihepatic, and multiple intra-abdominal and pelvic abscesses. Her abdomen is currently open, and she has a wound VAC over her open abdominal incision. Patient currently is on sedation, on the respirator. She is on Dontrell-Synephrine. She is afebrile. Her white count on admission was 14,000, and it is 29,000 today. She is currently on Diflucan, Flagyl, and Levaquin. Infectious disease consultation has been requested to assist in evaluation and treatment of patient with intra-abdominal abscess. Had surgery: 05/04 1. Bilateral salpingo-oophorectomy by Dr. Catherine Escalera. 2. Abdominal washout, abdominal exploration. 3. Lysis of adhesions. 4. Removal of appendiceal stump from probable previously ruptured appendicitis. 5. Drainage of pelvic abscess with intra-abdominal drain. 6. Repair of incisional hernia with closure of abdomen. Notes reviewed D/W RN Febrile overnight INcreased O2 requirement overnight up to 100%, now down to 60% On pressors Creatinine rising UO low, on bumex drip now Dyspneic on the vent No BM On oral Vanco/and Vanco enema Increased third spacing CT A/P no new fluid collection, has bowel thickening L side, has increased pancreatic mass S/P trach 05/16 Antibiotics: Meropenem Micafungin PO/IR Vanco Lines: central line [facility] - 05/10 Past Medical History: Traumatic brain injury (Acute) H/O Meckel's diverticulum History of exploratory laparotomy (Acute) H/O abdominal surgery (Acute) H/O brain surgery (Chronic) History of orthopedic surgery Allergies/Adverse Reactions: Allergies amoxicillin Allergy (Severe, Verified 04/05/18 19:19) Hives penicillin G Allergy (Severe, Verified 04/05/18 19:19) Hives Objective Vital Signs 05/17/18 12:00 05/17/18 12:09 05/17/18 14:00 Temperature 100.5 F H Pulse Rate 129 H 132 H Respiratory Rate 28 H 26 H Blood Pressure 100/65 Pulse Oximetry 93 L 92 L 05/17/18 15:53 05/17/18 16:36 05/17/18 17:59 Temperature Pulse Rate 135 H 140 H Respiratory Rate 32 H Blood Pressure Pulse Oximetry 100 05/17/18 18:11 05/17/18 20:00 05/17/18 20:23 Temperature 99.6 F Pulse Rate 132 H Respiratory Rate 25 H 20 18 Blood Pressure 92/53 L Pulse Oximetry 93 L 92 L 05/17/18 20:30 05/17/18 23:52 05/17/18 23:54 Temperature Pulse Rate 128 H 124 H Respiratory Rate 21 18 19 Blood Pressure Pulse Oximetry 94 L 05/18/18 00:00 05/18/18 04:00 05/18/18 04:16 Temperature 98.7 F 99.8 F H Pulse Rate 124 H 126 H 126 H Respiratory Rate 19 22 20 Blood Pressure 96/55 L 99/53 L Pulse Oximetry 94 L 94 L 94 L 05/18/18 07:47 05/18/18 08:35 05/18/18 09:15 Temperature 100.7 F H 101.0 F H Pulse Rate 130 H 129 H 129 H Respiratory Rate 21 26 H 25 H Blood Pressure 102/57 L 106/59 L Pulse Oximetry 98 98 96 05/18/18 11:16 Temperature Pulse Rate Respiratory Rate 27 H Blood Pressure Pulse Oximetry 97 Intake & Output 05/17/18 05/18/18 05/18/18 18:59 06:59 18:59 Intake Total 2320 / 2320 2600 / 2600 450 / 450 Output Total 435 / 435 340 / 340 Balance 1885 / 1885 2260 / 2260 450 / 450 Weight 81.5 kg Intake: IV 1900 / 1900 2600 / 2600 200 / 200 Versed Inj 50 mg In 50 ml @ 2 50 / 50 50 / 50 MG/HR 2 mls/hr IV.CONT TITRATE PRN Rx#:[id number] Ofirmev Inj 1,000 mg In 100 ml 100 / 100 @ 400 mls/hr IV.SIG Q6H PRN Rx# :[id number] Flexbumin 25% Inj 100 ML @ 60 200 / 200 100 / 100 100 / 100 mls/hr IV.SIG Q8H ALMA Rx#: [id number] Merrem Inj 500 MG In NS Inj 100 200 / 200 100 / 100 100 / 100 ML @ 200 mls/hr IV.SIG Q8H ALMA Rx#:[id number] Mycamine Inj 100 MG In NS Inj 100 / 100 100 ML @ 100 mls/hr IV.SIG Q24H ALMA Rx#:[id number] MVI-12 Inj 10 ML Folvite Inj 1 1999 / 1999 MG In TPN Fluid 2 Liter 2,000 ML @ 83 mls/hr IV.SIG DAILY@ 2000 ALMA Rx#:[id number] NS Inj 250 ML @ 15 mls/hr IV. 100 / 100 SIG ONCE ALMA Rx#:[id number] fentaNYL 10 mcg/mL Premix Drip 250 / 250 250 / 250 2,500 mcg In 250 ml @ 50 MCG/HR 5 mls/hr IV.SIG TITRATE PRN Rx #:[id number] Tube Feeding 0 / 0 Water Bolus Amount 20 / 20 Other 250 / 250 Rbc As-3 Leukoreduced Unit 250 / 250 [id number] Intake (Blood Product) Amt 400 / 400 0 / 0 Rbc As-3 Leukoreduced Unit 0 / 0 [id number] Rbc As-3 Leukoreduced Unit 400 / 400 [id number] Rbc As-3 Leukoreduced Unit 0 / 0 [id number] Output: Stool 0 / 0 Urine Amount (Catheter) 300 / 300 150 / 150 Indwelling Urethral Catheter 300 / 300 150 / 150 Gastric Drainage 100 / 100 150 / 150 Right Nare Nasogastric Tube 100 / 100 150 / 150 Wound Drainage 35 / 35 40 / 40 # 1 Abdomen 35 / 35 40 / 40 Other: # Bowel Movements 0 05/16/18 15:26 Blood - Line Aerobic Blood Culture - Preliminary No growth in 2 days 05/16/18 15:26 Blood - Line Anaerobic Blood Culture - Preliminary No growth in 2 days 05/16/18 15:21 Blood - Peripheral Aerobic Blood Culture - Preliminary No growth in 2 days 05/16/18 15:21 Blood - Peripheral Anaerobic Blood Culture - Preliminary No growth in 2 days 05/02/18 23:50 Abscess - Abdominal Fungal Smear - Final No fungal elements seen 05/02/18 23:50 Abscess - Abdominal Fungal Culture - Preliminary No growth in 2 weeks 05/02/18 23:50 Abscess - Abdominal Acid Fast Bacilli Smear - Final No acid fast bacilli seen 05/02/18 23:50 Abscess - Abdominal Mycobacterial Culture - Preliminary No growth in 2 weeks 05/14/18 18:50 Sputum - Endotracheal Gram Stain - Final 05/14/18 18:50 Sputum - Endotracheal Sputum Culture - Final No growth in 48 hours 05/09/18 00:26 Blood - Peripheral Aerobic Blood Culture - Final No growth in 5 days 05/09/18 00:26 Blood - Peripheral Anaerobic Blood Culture - Final QNS - See aerobic report. Lab - Hematology Results 05/17/18 05/18/18 05:10 05:20 WBC 11.8 H 12.2 H RBC 2.31 L 2.29 L Hgb 6.9 L* 6.7 L* Hct 20.9 L* 20.6 L* MCV 90.8 89.9 MCH 30.1 29.0 MCHC 33.1 32.3 RDW 15.1 16.0 Plt Count 100 L 155 D MPV 10.5 10.8 Lab - Chemistry Results 05/16/18 05/16/18 05/16/18 12:00 17:57 23:47 Sodium Potassium Chloride Carbon Dioxide Anion Gap BUN Creatinine Estimated GFR POC Glucose 136 H 153 H 118 H Random Glucose Calcium Total Bilirubin AST ALT Alkaline Phosphatase Total Creatine Kinase Total Protein Albumin Lipase Procalcitonin 05/17/18 05/17/18 05/17/18 05:10 09:00 11:51 Sodium 137 Potassium 3.8 Chloride 104 Carbon Dioxide 22.5 Anion Gap 11 BUN 57 H Creatinine 1.99 H Estimated GFR 27 L POC Glucose 109 111 H Random Glucose 103 Calcium 8.3 L Total Bilirubin 1.8 H AST 59 H ALT 10 Alkaline Phosphatase 312 H Total Creatine Kinase Total Protein 6.2 L Albumin 2.8 L Lipase 1922 H Procalcitonin 05/17/18 05/17/18 05/17/18 16:47 17:53 23:56 Sodium Potassium Chloride Carbon Dioxide Anion Gap BUN Creatinine Estimated GFR POC Glucose 118 H 137 H Random Glucose Calcium Total Bilirubin AST ALT Alkaline Phosphatase Total Creatine Kinase 26 Total Protein Albumin Lipase Procalcitonin 05/18/18 05/18/18 05:20 05:20 Sodium 136 Potassium 4.3 Chloride 104 Carbon Dioxide 20.3 L Anion Gap 12 BUN 62 H Creatinine 2.31 H Estimated GFR POC Glucose Random Glucose 129 H Calcium 8.1 L Total Bilirubin 1.9 H AST 62 H ALT 12 Alkaline Phosphatase 411 H Total Creatine Kinase Total Protein 6.2 L Albumin 2.9 L Lipase 2438 H Procalcitonin 4.98 H Imaging: ITS Impressions Chest X-Ray 05/16/18 00:00 CONCLUSION: Worsening appearance of the chest. Abdomen/Pelvis CT 05/16/18 09:39 CONCLUSION: 1. Diffuse body wall edema, small amount of ascites, and bilateral effusions and consolidation. 2. Abnormal bowel wall thickening involving the hepatic flexure and descending colon characteristic of colitis. 3. Mass like enlargement of the proximal pancreas with chronic pancreatitis calcifications noted. Physical Exam: GENERAL: on sedation, on the vent. Looks dyspneic SKIN: Cool and dry. No generalized rash. Edematous. Has areas of erythema on both legs and lower trunk HEAD: Atraumatic. Normocephalic. No temporal wasting, or tenderness. EYES: [place] conjunctiva. No petechia or hemorrhage. Pupils equal, round and reactive to light. No scleral icterus. No injection or drainage. EARS, NOSE AND THROAT: Nose without bleeding or purulent nasal discharge. Moist mucosa NECK: S/P trach, site looks ok CARDIOVASCULAR: Regular rate and rhythm. No murmurs, rubs or gallops heard RESPIRATORY: Diffuse rhonchi ABDOMEN: very distended abdomen, very hypoactive bowel sounds, midline incision, oozing serous fluid in lower portion. One ILA in LLQ with serous fluid. No reaction to deep palpation EXTREMITIES: Edematous. Erythema both legs (where the compressions goes) and in lower trunk NEUROLOGICAL: Sedated PSYCHIATRIC: Unable to assess LINE: RSC line No evidence of infection Assessment and Plan - Plan Impression Sepsis with shock due to intraabdominal process Multiple intraabdominal and pelvic abscess, S/P lap and drainage of abscess - S/P reexploration and closure Respiratory failure New bilateral pulmonary infiltrates - ?PNA - ?ARDS - repeat sputum negative - CXR worse again Leukocytosis Renal insufficiency, worsening, source? - has bowel wall thickening - increased pancreatic head, has known chronic pancreatitis - CXR worse again, more of fluid likely, ARDS Third spacing Bowel wall thickening, ? C diff Pancreatitis, chronic Erythema both legs and lower abdomen looks more due to edema Recommendation Continue Meropenem Continue Micafungin Continue Flagyl Continue Vanco oral and enema Follow new C/S Monitor progress D/W RN
[2018-05-18 12:40] LABS: Amorphous Sediment,Urine Occasional /hpf; Bacteria,Urine Few /hpf; Bilirubin,Urine Negative (Negative); Clarity,Urine Turbid (Clear); Color,Urine Amber (Yellw/Straw); Glucose,Urine (UA) Negative (Negative); Leukocyte Esterase,Urine Small (Negative); Mucus,Urine Few /lpf (Occasional); Nitrite,Urine Negative (Negative); Renal Epithelial Cells,Urine 1 /hpf; Specific Gravity,Urine 1.019 (1.002-1.035); Squamous Epithelial Cell,Urine 2 /hpf (0-5); Transitional Epi Cells,Urine 5 /hpf
--- NOTE | 2018-05-18 12:54 | P.DIET ---
Nutritional Evaluation Type of nutrition evaluation: follow-up Nutrition consult regarding: Tube Feeding, TPN/PPN Objective - Diagnosis Abdominal Ventral Wall Hernia Incarceration - Objective % IBW: 126 (IBW = 110#) Body Weight Used for Calculations: Actual (63.1 kg) Energy Needs - Lower Range (kCal/kg): 25 Energy Needs - Upper Range (kCal/kg): 30 Lower Limit kCal/kg (kCals): 1,578 Upper Limit kCal/kg (kCals): 1,893 Lower Limit Protein Factor (Grams per Kg): 1.0 Upper Limit Protein Factor (Grams per Kg): 1.5 Lower Protein Needs (Protein): 63 Upper Protein Needs (Protein): 95 Dietitian Reviewed in Medical Record: Curent medications, Intake & Output, Labs , Medical history, TPN/PPN, Tube feeding Diet Order: NPO Objective Comments: Labs: TG 133 (05/09), lip 2438 05/02 exp lap, partial omenectomy, abd wound vac 05/04 exp lap, rigid sigmoidoscopy, abdominal wash out, repair of incisional hernia Assessment Assessment: Pt with worsening condition, remains vented with TF on hold. Receiving TPN/ lipids: Clinimix E 5/20 @ 83 mls/hr with no lipids. If pt tolerates trickle TF , lipids will not be needed. Request weekly TG while pt is on TPN. Significant wt changes noted; pt with anasarca and edema. Recommendations: TPN: Clinimix E 5/20 @ 70 mls/hr LIPIDS: 20% lipids 250 mls/day Trickle Feeds: Glucerna 1.5 @ 10 mls/hr as tolerated. Goal 50 mls/hr when appropriate. Dietitian to Monitor: Lab values, Intake & Output, Tube feeding tolerance, TPN/ PPN tolerance, Weight change, Medical course
[2018-05-18 13:33] LABS: Hematocrit 27.2 % (35.0-46.0); Hemoglobin 8.9 gm/dL (11.6-15.3)
--- NOTE | 2018-05-18 15:10 | P.PNPAL ---
Palliative care consulted to assist with goals of medical treatment and assistance with identifying health care proxy decision maker.In review of records, case management notes from 05/03/2018 indicate patient has a minor son ( Otis Campbell; age 15). The father (Charbel [phone]) was contacted and refused to give additional information on family. Significant other Rebel Agustin [phone] indicates patient's mother, father, and only sibling ( brother) are . Reports possible uncles in [place] and [place]. [employer] was requested at that time. Case management notes from 05/11/2018 indicate diligent searches completed with no family members found. Healthcare proxy paperwork was completed at that time with the significant other. Palliative care to arrange family meet and address goals of medical treatment.
--- NOTE | 2018-05-18 16:56 | P.CONPAL ---
Consult Service: Palliative Care Requesting Physician: Gabino Luu Reason for Consult: a. To assist with evaluation and management of symptoms including:pain b. To assist medical decision maker(s) with: better understanding of current medical conditions; weighing benefits/burdens of medical treatment options; making medical treatment decisions. Primary Care Provider: UNKNOWN History of Present Illness History of Present Illness: Patient is a 42-year-old with a history of traumatic brain injury, multiple abdominal surgeries with bowel resection in July 2017, history of pancreatitis presented to the ER with complaint of abdominal pain. Patient has had abdominal pain since July 2017 has been in constant abdominal pain. Patient went to the ER on 05/02/2018: * Vitals heart rate is 100, respirations 17, blood pressure is 111/78, pulse ox is 97% on room air * WBCs 32, hemoglobin 7.5, hematocrit is 23.4, platelets 240 * Sodium is 141, potassium is 4.0, chloride is 111, bicarb is 18.8, BUN 16, creatinine 0.62 * Glucose 124, calcium is 6.9 * Total protein 12.1 albumin is 1.0. * PT 11.8, INR 1.2, PT is 27.1 * Urine shows large amount of occult blood, negative for leukocyte esterase, negative for nitrite. Culture was indicated. * Urine culture shows mahad. * Acid-fast bacillus smear shows no acid-fast bacillus. Fungal smear was negative, * Abdomen pelvic CT-shows 1. Anterior abdominal wall hernia containing a loop of small bowel with air and apparent surrounding inflammatory change. There is an abnormal bowel gas pattern and this is of concern for acute obstruction with possible strangulation. 2. New large cystic structure in the pelvis with air-fluid levels as well as additional cystic collections with air-fluid levels with represent additional phlegmon or abscesses. 3. Acute pancreatitis again noted with enlarged head of the pancreas with multiple calcifications and indistinctness. There are new cystic structures within the pancreas. There are multiple calcifications again noted. Pancreatic duct remains dilated. 4. Cirrhotic appearing liver with surrounding ascites. 5. Tiny gallstone again noted. * Chest x-ray .mild elevation of the right hemidiaphragm with concomitant atelectatic changes in the right lung base. Lungs are otherwise clear. Patient's care was transferred to hospitalist. General surgery was consulted. On general surgery examination, patient was in extreme pain and has acute abdomen. Radiologic findings shows a large pelvic abdominal abscess question of ischemic bowel from incarcerated hernia and she requires urgent surgery. Patient underwent exploratory laparotomy. Subsequently performed partial to me , drainage of pelvic abscess, drainage of intra-abdominal abscess, drainage of perihepatic abscess, application of VAC device for temporary closure of the abdomen, lysis of adhesions. 05/03- Infectious disease consulted, who are managing antibiotics, and monitoring cultures. Pt s/p operation, intubated and care transferred to critical medicine. 05/04-On levophed. recieve PRBC for anemia. Leukocytosis. Plan went to OR for Bilateral slapingo-oophorectomy, abdominal washout, lysis of adhesion, appendiceal stump probably previous ruptured appendicitis, drainage of pelvic abscess with intra-abdominal drain, repair of inscisional hernia with closure of abdomen. 05/05-05/06. remains on the vent, and on pressors. Leukocytosis. Subsequently able to wean off the vent 05/07- Off the vent, but pt condition deteriorated over the past 6 hours,with respiratory distress and hypoxemia. Senior Credit Officer feels decline may "well indicate worsening sepsis." 05/08- Pt continue to have deteriorating respiratory function. Pt has full blown ARDS. reintubated 05/09- Remains in ARDS. remains on vent, on vasopressor, with anemia. 05/10 to 05/14-remains on the vent, . General surgery and ID continuese to follow. Continue to have infiltrates on chest X ray/ pneumonia. 05/15- able to be off pressors. pt will likely requrie tracheostomy. 05/16-Abdominal CT show diffuse body wall edema, small amount of ascites and bilateral effusions and consolidations. Abnormal abnormal bowel wall thickening involving the hepatic flexure and descending colon characteristic of colitis. Masslike enlargement of proximal pancreas with chronic pancreatitis calcification noted. Patient subsequently became hypotensive overnight requiring pressors again. Patient remains tachycardic. Patient was trached at bedside for persistent respiratory failure. 05/17-Noted to be very ill and toxic. Anemic requring transfusion, ICU and surgery reviewed CT imaging: no drainable fluid collection. colon thickening concerning for colitis. no diarrhea. certainly this could be C. Difficile megacolon. Pt also has lungs with bilateral lower lobe consolidations. Could not diuresis due to sepsis. 05/18- pt remains critically ill FIO2 up to 100%. Palliative care was consulted to reveiw goals of treatment, given clinical deterioration. Patient' s condition was reviewed with x ray service engineer On my visit pt is critically ill, unresponsive. Patient's significant other Rebel Agustin was at bedside. Reviewed course of hospitalization with Health care proxy. I ask him what is his expectation of the hospitalization is? He endorse "Things are not looking good are they"? I said no, and I worry that patient despite all the surgical procedures, antibitoics and life support will not surive hospitalization. Pt is heading towards decline, and , despite medical/surgical managment. I reviewed code status with patient's significant other. He endorse he wants to talk it over to her 15 year old son. Became emotional. Difficult to accept. He is amenable to meet again sometime between 10am and 11:00. Pt remains FULL Code. Review of Systems unobtainable due to mental condition PMFSH - History History Provided By: Patient - Medical / Surgical Hx Neg / Unobtainable Medical Problems Denied: Unable to Obtain - Medical History Medical History: Medical History (Last Reviewed 05/18/18 @ 16:51 by Bernard Bañuelos MD) Traumatic brain injury (Acute) H/O Meckel's diverticulum - Surgical History Surgical History: Surgical History (Last Reviewed 05/18/18 @ 16:52 by Bernard Bañuelos MD) History of exploratory laparotomy (Acute) H/O abdominal surgery (Acute) H/O brain surgery (Chronic) History of orthopedic surgery - Family History Family History: Family History (Last Reviewed 05/18/18 @ 16:52 by Bernard Bañuelos MD) Other Osteoarthritis - Tobacco History Second Hand Smoke Exposure: No Tobacco Use In Past 30 Days: Yes Smoking Status: Current every day smoker Tobacco Type: Cigarettes - Alcohol History How Often Do You Have a Drink Containing Alcohol: 2 to 4 times a month - Substance Use History Substance History: Past History - Immunization History Tetanus Immunization: Unsure Hx Influenza Vaccine This Season: No Medications and Allergies Active Medications: Active Medications Albuterol (Duoneb Neb (Prn)) 1 ampul NEB Q2HR NEB PRN PRN Reason: SHORTNESS OF BREATH Last Admin: 05/18/18 07:45 Dose: 1 ampul Chlorhexidine Gluconate (Peridex 0.12% Oral Kit) 15 ml OROPHARYNG BID@0800, 1999 [facility], [facility] Last Admin: 05/18/18 08:41 Dose: 15 ml Sodium Chloride 500 ml/ (Vancomycin HCl 500 mg) 0 ml RECTAL Q6HR [facility], [facility] Last Admin: 05/18/18 13:05 Dose: 500 enema Dextrose (D50w Vial) 50 ml IV.PUSH UNSCH PRN PRN Reason: PER HYPOGLYCEMIA PROTOCOL Famotidine (Pepcid Pf Inj) 10 mg IV.PUSH Q12HR [facility], [facility] Last Admin: 05/18/18 10:08 Dose: 10 mg Furosemide (Lasix Inj) 20 mg IV.PUSH DAILY [facility], [facility] Last Admin: 05/16/18 09:54 Dose: 20 mg Glucagon (Glucagon Inj) 1 mg OTHER PRN PRN PRN Reason: for Hypoglycemia Protocol Heparin Sodium (Porcine) (Heparin Inj) 5,000 units SQ Q8HR [facility], [facility] Last Admin: 05/18/18 13:03 Dose: 5,000 units Hydromorphone HCl (Dilaudid Pf Inj) 1 mg IV.PUSH Q4H PRN PRN Reason: Pain 7 to 10 Last Admin: 05/02/18 21:13 Dose: 1 mg Hydromorphone HCl (Dilaudid Pf Inj) 0.5 mg IV.PUSH Q4H PRN PRN Reason: PAIN 3 TO 6 Propofol (Diprivan 1000 Mg/100 Ml Inj) 1,000 mg in 100 mls @ 1.752 mls/hr IV.CONT TITRATE PRN; Protocol PRN Reason: Per Protocol Last Titration: 05/04/18 09:16 Dose: Infused Fentanyl (Fentanyl 10 Mcg/Ml Premix Drip) 2,500 mcg in 250 mls @ 5 mls/hr IV.SIG TITRATE PRN; Protocol PRN Reason: Per Protocol Last Admin: 05/18/18 00:02 Dose: 150 mcg/hr, 15 mls/hr Midazolam HCl (Versed Inj) 50 mg in 50 mls @ 2 mls/hr IV.CONT TITRATE PRN; Protocol PRN Reason: Per Protocol Last Admin: 05/18/18 13:08 Dose: 4 mg/hr, 4 mls/hr Magnesium Sulfate Inj 4 gm/ (Sodium Chloride) 100 mls @ 50 mls/hr IV.SIG UNSCH PRN PRN Reason: For Magnesium 0.9 - 1.1 mg/dL Magnesium Sulfate Inj 2 gm/ (Sodium Chloride) 100 mls @ 50 mls/hr IV.SIG UNSCH PRN PRN Reason: For Magnesium 1.2 - 1.6 mg/dL Last Infusion: 05/16/18 19:00 Dose: Infused Potassium Chloride (Kcl 40 Meq Premix Inj) 40 meq in 100 mls @ 25 mls/hr IV.SIG Q2H PRN PRN Reason: For Potassium 2.8 - 3.2 mEq/L Last Infusion: 05/15/18 15:02 Dose: Infused Potassium Chloride (Kcl 20 Meq Premix Inj) 20 meq in 100 mls @ 50 mls/hr IV.SIG Q2H PRN PRN Reason: For Potassium 3.3 - 3.5 mEq/L Potassium Chloride (Kcl 40 Meq Premix Inj) 40 meq in 100 mls @ 25 mls/hr IV.SIG UNSCH PRN PRN Reason: For Potassium 3.3 - 3.5 mEq/L Last Infusion: 05/12/18 01:19 Dose: Infused Potassium Phosphate 30 mmol/ (Sodium Chloride) 260 mls @ 42 mls/hr IV.SIG UNSCH PRN PRN Reason: SEE LABEL COMMENTS Last Infusion: 05/09/18 22:59 Dose: Infused Sodium Phosphate 30 mmol/ (Sodium Chloride) 260 mls @ 42 mls/hr IV.SIG UNSCH PRN PRN Reason: For Phosphorus < 2.5 mg/dL Potassium Chloride (Kcl 20 Meq Premix Inj) 20 meq in 100 mls @ 50 mls/hr IV.SIG Q2H PRN PRN Reason: For Potassium 2.8 - 3.2 mEq/L Multivitamins 10 ml/ Folic Acid 1 mg/ Amino Acids/Electrolytes/Dextrose 2, 010.2 mls @ 83 mls/hr IV.SIG DAILY@1999 [facility] Last Admin: 05/17/18 22:23 Dose: 83 mls/hr Albumin Human (Flexbumin 25% Inj) 100 mls @ 60 mls/hr IV.SIG Q8H [facility] Stop: 05/18/18 23:59 Last Admin: 05/18/18 15:22 Dose: 60 mls/hr Phenylephrine HCl 160 mg/ (Sodium Chloride) 500 mls @ 7.5 mls/hr IV.CONT TITRATE PRN; Protocol PRN Reason: See protol Last Titration: 05/17/18 21:45 Dose: 30 mcg/min, 5.62 mls/hr Meropenem 500 mg/ Sodium (Chloride) 100 mls @ 200 mls/hr IV.SIG Q8H [facility] Last Infusion: 05/18/18 09:32 Dose: Infused Micafungin Sodium 100 mg/ (Sodium Chloride) 100 mls @ 100 mls/hr IV.SIG Q24H [facility] Last Admin: 05/18/18 15:24 Dose: 100 mls/hr Acetaminophen (Ofirmev Inj) 1,000 mg in 100 mls @ 400 mls/hr IV.SIG Q6H PRN PRN Reason: temp > 101 Last Infusion: 05/18/18 11:57 Dose: Infused Sodium Chloride (Ns Inj) 250 mls @ 15 mls/hr IV.SIG ONCE [facility] Stop: 05/18/18 23:39 Last Admin: 05/18/18 08:39 Dose: 15 mls/hr Bumetanide (Bumex Inj) 25 mg in 100 mls @ 8 mls/hr IV.CONT .[id number] [facility], [facility] Last Admin: 05/18/18 10:11 Dose: 8 mls/hr Insulin Aspart (Novolog Insulin Correctional Sugar Inj) 0 unit SQ Q6HR [facility], [facility]; Protocol Last Admin: 05/18/18 13:03 Dose: Not Given Insulin Detemir (Levemir Inj) 8 unit SQ BID [facility] Last Admin: 05/18/18 08:51 Dose: Not Given Magnesium Oxide (Mag-Ox) 800 mg PO UNSCH PRN PRN Reason: For Magnesium 1.2 - 1.6 mg/dL Ondansetron HCl (Zofran Inj) 4 mg IV.PUSH Q6H PRN PRN Reason: NAUSEA OR VOMITING Potassium Bicarb/Potassium Chloride (K-Lyte Cl Eff) 50 meq PO UNSCH PRN PRN Reason: For Potassium 3.3 - 3.5 mEq/L Last Admin: 05/14/18 22:31 Dose: 50 meq Potassium Phosphate (K-Phos Original) 2,000 mg PO Q4H PRN PRN Reason: Phosphorus Less Than 2.5 mg/dL Last Admin: 05/14/18 22:31 Dose: 2,000 mg Potassium Phosphate (K-Phos Original) 2,000 mg PO UNSCH PRN PRN Reason: SEE LABEL COMMENTS Sodium Chloride (Ns Flush) 2 ml IV.FLUSH PRN PRN PRN Reason: FLUSH AFTER USING IV ACCESS Last Admin: 05/10/18 08:28 Dose: 2 ml Terbutaline Sulfate (Brethine Inj) 1 mg SQ UNSCH PRN PRN Reason: For Extravasation Vancomycin HCl (Vancomycin Po) 250 mg PO QID [facility] Last Admin: 05/18/18 13:07 Dose: 250 mg Allergies Allergy/AdvReac Type Severity Reaction Status Date / Time amoxicillin Allergy Severe Hives Verified 04/05/18 19:19 penicillin G Allergy Severe Hives Verified 04/05/18 19:19 Advance Directives Living Will: No Physical Exam Vital Signs: Vital Signs - 24 hr 05/17/18 16:36 05/17/18 17:59 05/17/18 18:11 Temperature Pulse Rate 140 H Respiratory Rate 32 H 25 H Blood Pressure Pulse Oximetry 100 05/17/18 20:00 05/17/18 20:23 05/17/18 20:30 Temperature 99.6 F Pulse Rate 132 H 128 H Respiratory Rate 20 18 21 Blood Pressure 92/53 L Pulse Oximetry 93 L 92 L 05/17/18 23:52 05/17/18 23:54 05/18/18 00:00 Temperature 98.7 F Pulse Rate 124 H 124 H Respiratory Rate 18 19 19 Blood Pressure 96/55 L Pulse Oximetry 94 L 94 L 05/18/18 04:00 05/18/18 04:16 05/18/18 07:47 Temperature 99.8 F H Pulse Rate 126 H 126 H 130 H Respiratory Rate 22 20 21 Blood Pressure 99/53 L Pulse Oximetry 94 L 94 L 98 05/18/18 08:35 05/18/18 09:15 05/18/18 11:16 Temperature 100.7 F H 101.0 F H Pulse Rate 129 H 129 H Respiratory Rate 26 H 25 H 27 H Blood Pressure 102/57 L 106/59 L Pulse Oximetry 98 96 97 05/18/18 15:19 Temperature Pulse Rate Respiratory Rate 19 Blood Pressure Pulse Oximetry 96 I&O: Intake & Output 05/16/18 05/17/18 05/18/18 05/19/18 06:59 06:59 06:59 06:59 Intake Total 5375.2 / 5375.2 4640 / 4640 4920 / 4920 600 / 600 Output Total 3365 / 3365 1655 / 1655 775 / 775 Balance 2009.2 2985 / 2985 4145 / 4145 600 / 600 Weight 79.9 kg 80.7 kg 81.5 kg Physical Exam: CONSTITUTIONAL/GENERAL: Critically ill 42 women, intubated, sedated. TUBES/LINES/DRAINS: SKIN: No jaundice, rashes, or lesions. Ecchymoses on upper extremities. No wounds seen anteriorly. Skin temperature appropriate. Not diaphoretic. HEAD: Atraumatic. Normocephalic. EYES: Pupils equal and round and reactive. Extraocular motions intact. No scleral icterus. ENT: NFT in place. Trach. NECK: Trachea midline. Trach in place. CARDIOVASCULAR: Regular rate and rhythm without murmurs, gallops, or rubs. No JVD. Peripheral pulses symmetric. RESPIRATORY/CHEST: Coarse breath sounds. bilate. GASTROINTESTINAL: Abdomen clsoed. Drains withs serous fluid, anasarca. GENITOURINARY: Without palpable bladder distension. Franklin catheter in place. MUSCULOSKELETAL: Extremities without clubbing, cyanosis, or edema. No joint tenderness or effusion noted. No calf tenderness. No mottling or clubbing. LYMPHATICS: No palpable cervical or supraclavicular adenopathy. NEUROLOGICAL: Intubated sedated. PSYCHIATRIC: could not examine. Diagnostic Tests Laboratory: Laboratory Results - last 72 hr 05/02/18 05/09/18 05/15/18 23:59 08:02 21:15 WBC RBC Hgb Hct MCV MCH MCHC RDW Plt Count MPV Prelim Diff (Auto) Neut % (Auto) Lymph % (Auto) [place] % (Auto) Eos % (Auto) Baso % (Auto) Neut # (Auto) Lymph # (Auto) [place] # (Auto) Eos # (Auto) Baso # (Auto) WBC Differential Seg Neuts % (Manual) Band Neuts % (Manual) Lymphocytes % (Manual) Monocytes % (Manual) Eosinophils % (Manual) Basophils % (Manual) Metamyelocytes % (Man) Myelocytes % (Man) Abs Neuts (Manual) Differential Comment Toxic Granulation Toxic Vacuolation Platelet Estimate Platelet Morphology PT INR Puncture Site Patient Temperature O2 Saturation ABG pH ABG pCO2 ABG pO2 ABG HCO3 ABG O2 Content ABG Base Excess ABG Methemoglobin Hemoglobin Carboxyhemoglobin O2 Delivery Device Vent Setting Inspired O2 Critical Value Sodium Potassium Chloride Carbon Dioxide Anion Gap BUN Creatinine Estimated GFR POC Glucose Random Glucose Lactic Acid 1.6 Calcium Phosphorus Magnesium Total Bilirubin AST ALT Alkaline Phosphatase Ammonia Total Creatine Kinase Total Protein Albumin Lipase Procalcitonin Urine Color Urine Clarity Urine pH Ur Specific [place] Urine Protein Urine Glucose (UA) Urine Ketones Urine Occult Blood Urine Nitrate Urine Bilirubin Urine Urobilinogen Ur Leukocyte Esterase Urine RBC Urine WBC Ur Squamous Epith Cells Ur Transition Epith Cell Ur Renal Epithelial Cell Amorphous Sediment Urine Bacteria Granular Casts Urine Mucus Micro UA Comment Ur Microscopic Review Urine Culture Comments Random Vancomycin Blood Type Antibody Screen MTS Gel Crossmatch See Detail See Detail Bld Prod Order Comment 05/15/18 05/15/18 05/15/18 21:15 21:15 21:15 WBC 11.5 H RBC 2.43 L Hgb 7.1 L Hct 22.2 L MCV 91.0 MCH 29.2 MCHC 32.1 RDW 15.1 Plt Count 98 L MPV 11.8 H Prelim Diff (Auto) Slide review pending Neut % (Auto) 78.8 H Lymph % (Auto) 9.6 [place] % (Auto) 8.5 H Eos % (Auto) 2.7 Baso % (Auto) 0.4 Neut # (Auto) 9.1 H Lymph # (Auto) 1.1 [place] # (Auto) 1.0 H Eos # (Auto) 0.3 Baso # (Auto) 0.0 WBC Differential Manual diff final Seg Neuts % (Manual) 70 Band Neuts % (Manual) 4 Lymphocytes % (Manual) 6 L Monocytes % (Manual) 15 H Eosinophils % (Manual) 2 Basophils % (Manual) 1 Metamyelocytes % (Man) 1 Myelocytes % (Man) 1 H Abs Neuts (Manual) 8.7 H Differential Comment . Toxic Granulation 2+ H Toxic Vacuolation Present H Platelet Estimate Low L Platelet Morphology Normal PT 18.4 H INR 1.8 Puncture Site Patient Temperature O2 Saturation ABG pH ABG pCO2 ABG pO2 ABG HCO3 ABG O2 Content ABG Base Excess ABG Methemoglobin Hemoglobin Carboxyhemoglobin O2 Delivery Device Vent Setting Inspired O2 Critical Value Sodium 140 Potassium 3.8 Chloride 105 Carbon Dioxide 24.4 Anion Gap 11 BUN 40 H Creatinine 1.64 H Estimated GFR 34 L POC Glucose Random Glucose 133 H Lactic Acid Calcium 8.1 L Phosphorus 2.9 Magnesium 1.4 L Total Bilirubin 1.6 H AST 31 ALT 9 L Alkaline Phosphatase 326 H Ammonia Total Creatine Kinase Total Protein 5.8 L D Albumin 2.7 L Lipase Procalcitonin Urine Color Urine Clarity Urine pH Ur Specific [place] Urine Protein Urine Glucose (UA) Urine Ketones Urine Occult Blood Urine Nitrate Urine Bilirubin Urine Urobilinogen Ur Leukocyte Esterase Urine RBC Urine WBC Ur Squamous Epith Cells Ur Transition Epith Cell Ur Renal Epithelial Cell Amorphous Sediment Urine Bacteria Granular Casts Urine Mucus Micro UA Comment Ur Microscopic Review Urine Culture Comments Random Vancomycin Blood Type Antibody Screen MTS Gel Crossmatch Bld Prod Order Comment 05/15/18 05/15/18 05/16/18 21:15 21:52 00:53 WBC RBC Hgb Hct MCV MCH MCHC RDW Plt Count MPV Prelim Diff (Auto) Neut % (Auto) Lymph % (Auto) [place] % (Auto) Eos % (Auto) Baso % (Auto) Neut # (Auto) Lymph # (Auto) [place] # (Auto) Eos # (Auto) Baso # (Auto) WBC Differential Seg Neuts % (Manual) Band Neuts % (Manual) Lymphocytes % (Manual) Monocytes % (Manual) Eosinophils % (Manual) Basophils % (Manual) Metamyelocytes % (Man) Myelocytes % (Man) Abs Neuts (Manual) Differential Comment Toxic Granulation Toxic Vacuolation Platelet Estimate Platelet Morphology PT INR Puncture Site Patient Temperature O2 Saturation ABG pH ABG pCO2 ABG pO2 ABG HCO3 ABG O2 Content ABG Base Excess ABG Methemoglobin Hemoglobin Carboxyhemoglobin O2 Delivery Device Vent Setting Inspired O2 Critical Value Sodium Potassium Chloride Carbon Dioxide Anion Gap BUN Creatinine Estimated GFR POC Glucose 130 H 151 H Random Glucose Lactic Acid Calcium Phosphorus Magnesium Total Bilirubin AST ALT Alkaline Phosphatase Ammonia 15 Total Creatine Kinase Total Protein Albumin Lipase Procalcitonin Urine Color Urine Clarity Urine pH Ur Specific [place] Urine Protein Urine Glucose (UA) Urine Ketones Urine Occult Blood Urine Nitrate Urine Bilirubin Urine Urobilinogen Ur Leukocyte Esterase Urine RBC Urine WBC Ur Squamous Epith Cells Ur Transition Epith Cell Ur Renal Epithelial Cell Amorphous Sediment Urine Bacteria Granular Casts Urine Mucus Micro UA Comment Ur Microscopic Review Urine Culture Comments Random Vancomycin Blood Type Antibody Screen MTS Gel Crossmatch Bld Prod Order Comment 05/16/18 05/16/18 05/16/18 02:54 05:42 06:20 WBC RBC Hgb Hct MCV MCH MCHC RDW Plt Count MPV Prelim Diff (Auto) Neut % (Auto) Lymph % (Auto) [place] % (Auto) Eos % (Auto) Baso % (Auto) Neut # (Auto) Lymph # (Auto) [place] # (Auto) Eos # (Auto) Baso # (Auto) WBC Differential Seg Neuts % (Manual) Band Neuts % (Manual) Lymphocytes % (Manual) Monocytes % (Manual) Eosinophils % (Manual) Basophils % (Manual) Metamyelocytes % (Man) Myelocytes % (Man) Abs Neuts (Manual) Differential Comment Toxic Granulation Toxic Vacuolation Platelet Estimate Platelet Morphology PT INR Puncture Site Patient Temperature O2 Saturation ABG pH ABG pCO2 ABG pO2 ABG HCO3 ABG O2 Content ABG Base Excess ABG Methemoglobin Hemoglobin Carboxyhemoglobin O2 Delivery Device Vent Setting Inspired O2 Critical Value Sodium Potassium Chloride Carbon Dioxide Anion Gap BUN Creatinine Estimated GFR POC Glucose 131 H Random Glucose Lactic Acid Calcium Phosphorus Magnesium Total Bilirubin AST ALT Alkaline Phosphatase Ammonia Total Creatine Kinase Total Protein Albumin Lipase Procalcitonin Urine Color Urine Clarity Urine pH Ur Specific [place] Urine Protein Urine Glucose (UA) Urine Ketones Urine Occult Blood Urine Nitrate Urine Bilirubin Urine Urobilinogen Ur Leukocyte Esterase Urine RBC Urine WBC Ur Squamous Epith Cells Ur Transition Epith Cell Ur Renal Epithelial Cell Amorphous Sediment Urine Bacteria Granular Casts Urine Mucus Micro UA Comment Ur Microscopic Review Urine Culture Comments Random Vancomycin 27.2 Blood Type B Positive Antibody Screen Negative MTS Gel Crossmatch See Detail Bld Prod Order Comment 05/16/18 05/16/18 05/16/18 10:15 10:15 12:00 WBC 12.5 H RBC 2.59 L Hgb 7.8 L Hct 23.1 L MCV 89.3 MCH 30.0 MCHC 33.6 RDW 14.9 Plt Count 109 L MPV 11.2 H Prelim Diff (Auto) Neut % (Auto) Lymph % (Auto) [place] % (Auto) Eos % (Auto) Baso % (Auto) Neut # (Auto) Lymph # (Auto) [place] # (Auto) Eos # (Auto) Baso # (Auto) WBC Differential Seg Neuts % (Manual) Band Neuts % (Manual) Lymphocytes % (Manual) Monocytes % (Manual) Eosinophils % (Manual) Basophils % (Manual) Metamyelocytes % (Man) Myelocytes % (Man) Abs Neuts (Manual) Differential Comment Toxic Granulation Toxic Vacuolation Platelet Estimate Platelet Morphology PT INR Puncture Site Patient Temperature O2 Saturation ABG pH ABG pCO2 ABG pO2 ABG HCO3 ABG O2 Content ABG Base Excess ABG Methemoglobin Hemoglobin Carboxyhemoglobin O2 Delivery Device Vent Setting Inspired O2 Critical Value Sodium 140 Potassium 4.0 Chloride 105 Carbon Dioxide 22.4 Anion Gap 13 BUN 48 H Creatinine 1.81 H Estimated GFR 30 L POC Glucose 136 H Random Glucose 131 H Lactic Acid Calcium 7.9 L Phosphorus Magnesium 2.0 D Total Bilirubin 1.3 H AST 31 ALT 11 Alkaline Phosphatase 310 H Ammonia Total Creatine Kinase Total Protein 6.1 L Albumin 2.8 L Lipase 3006 H Procalcitonin Urine Color Urine Clarity Urine pH Ur Specific [place] Urine Protein Urine Glucose (UA) Urine Ketones Urine Occult Blood Urine Nitrate Urine Bilirubin Urine Urobilinogen Ur Leukocyte Esterase Urine RBC Urine WBC Ur Squamous Epith Cells Ur Transition Epith Cell Ur Renal Epithelial Cell Amorphous Sediment Urine Bacteria Granular Casts Urine Mucus Micro UA Comment Ur Microscopic Review Urine Culture Comments Random Vancomycin Blood Type Antibody Screen MTS Gel Crossmatch Bld Prod Order Comment 05/16/18 05/16/18 05/17/18 17:57 23:47 05:10 WBC 11.8 H RBC 2.31 L Hgb 6.9 L* Hct 20.9 L* MCV 90.8 MCH 30.1 MCHC 33.1 RDW 15.1 Plt Count 100 L MPV 10.5 Prelim Diff (Auto) Neut % (Auto) Lymph % (Auto) [place] % (Auto) Eos % (Auto) Baso % (Auto) Neut # (Auto) Lymph # (Auto) [place] # (Auto) Eos # (Auto) Baso # (Auto) WBC Differential Seg Neuts % (Manual) Band Neuts % (Manual) Lymphocytes % (Manual) Monocytes % (Manual) Eosinophils % (Manual) Basophils % (Manual) Metamyelocytes % (Man) Myelocytes % (Man) Abs Neuts (Manual) Differential Comment Toxic Granulation Toxic Vacuolation Platelet Estimate Platelet Morphology PT INR Puncture Site Patient Temperature O2 Saturation ABG pH ABG pCO2 ABG pO2 ABG HCO3 ABG O2 Content ABG Base Excess ABG Methemoglobin Hemoglobin Carboxyhemoglobin O2 Delivery Device Vent Setting Inspired O2 Critical Value Sodium Potassium Chloride Carbon Dioxide Anion Gap BUN Creatinine Estimated GFR POC Glucose 153 H 118 H Random Glucose Lactic Acid Calcium Phosphorus Magnesium Total Bilirubin AST ALT Alkaline Phosphatase Ammonia Total Creatine Kinase Total Protein Albumin Lipase Procalcitonin Urine Color Urine Clarity Urine pH Ur Specific [place] Urine Protein Urine Glucose (UA) Urine Ketones Urine Occult Blood Urine Nitrate Urine Bilirubin Urine Urobilinogen Ur Leukocyte Esterase Urine RBC Urine WBC Ur Squamous Epith Cells Ur Transition Epith Cell Ur Renal Epithelial Cell Amorphous Sediment Urine Bacteria Granular Casts Urine Mucus Micro UA Comment Ur Microscopic Review Urine Culture Comments Random Vancomycin Blood Type Antibody Screen MTS Gel Crossmatch Bld Prod Order Comment 05/17/18 05/17/18 05/17/18 05:10 06:07 09:00 WBC RBC Hgb Hct MCV MCH MCHC RDW Plt Count MPV Prelim Diff (Auto) Neut % (Auto) Lymph % (Auto) [place] % (Auto) Eos % (Auto) Baso % (Auto) Neut # (Auto) Lymph # (Auto) [place] # (Auto) Eos # (Auto) Baso # (Auto) WBC Differential Seg Neuts % (Manual) Band Neuts % (Manual) Lymphocytes % (Manual) Monocytes % (Manual) Eosinophils % (Manual) Basophils % (Manual) Metamyelocytes % (Man) Myelocytes % (Man) Abs Neuts (Manual) Differential Comment Toxic Granulation Toxic Vacuolation Platelet Estimate Platelet Morphology PT INR Puncture Site Patient Temperature O2 Saturation ABG pH ABG pCO2 ABG pO2 ABG HCO3 ABG O2 Content ABG Base Excess ABG Methemoglobin Hemoglobin Carboxyhemoglobin O2 Delivery Device Vent Setting Inspired O2 Critical Value Sodium 137 Potassium 3.8 Chloride 104 Carbon Dioxide 22.5 Anion Gap 11 BUN 57 H Creatinine 1.99 H Estimated GFR 27 L POC Glucose 109 Random Glucose 103 Lactic Acid Calcium 8.3 L Phosphorus Magnesium Total Bilirubin 1.8 H AST 59 H ALT 10 Alkaline Phosphatase 312 H Ammonia Total Creatine Kinase Total Protein 6.2 L Albumin 2.8 L Lipase 1922 H Procalcitonin Urine Color Urine Clarity Urine pH Ur Specific [place] Urine Protein Urine Glucose (UA) Urine Ketones Urine Occult Blood Urine Nitrate Urine Bilirubin Urine Urobilinogen Ur Leukocyte Esterase Urine RBC Urine WBC Ur Squamous Epith Cells Ur Transition Epith Cell Ur Renal Epithelial Cell Amorphous Sediment Urine Bacteria Granular Casts Urine Mucus Micro UA Comment Ur Microscopic Review Urine Culture Comments Random Vancomycin Blood Type Antibody Screen MTS Gel Crossmatch See Detail Bld Prod Order Comment 05/17/18 05/17/18 05/17/18 11:51 16:00 16:47 WBC RBC Hgb Hct MCV MCH MCHC RDW Plt Count MPV Prelim Diff (Auto) Neut % (Auto) Lymph % (Auto) [place] % (Auto) Eos % (Auto) Baso % (Auto) Neut # (Auto) Lymph # (Auto) [place] # (Auto) Eos # (Auto) Baso # (Auto) WBC Differential Seg Neuts % (Manual) Band Neuts % (Manual) Lymphocytes % (Manual) Monocytes % (Manual) Eosinophils % (Manual) Basophils % (Manual) Metamyelocytes % (Man) Myelocytes % (Man) Abs Neuts (Manual) Differential Comment Toxic Granulation Toxic Vacuolation Platelet Estimate Platelet Morphology PT INR Puncture Site Art line Patient Temperature 98.6 O2 Saturation 88 L* ABG pH 7.41 ABG pCO2 33 L ABG pO2 60 L ABG HCO3 20 L ABG O2 Content 8.7 L ABG Base Excess -3.9 L ABG Methemoglobin 1.6 Hemoglobin 7.0 L* Carboxyhemoglobin 2.1 O2 Delivery Device Ventilator Vent Setting Inspired O2 45 Critical Value Yes Sodium Potassium Chloride Carbon Dioxide Anion Gap BUN Creatinine Estimated GFR POC Glucose 111 H Random Glucose Lactic Acid Calcium Phosphorus Magnesium Total Bilirubin AST ALT Alkaline Phosphatase Ammonia Total Creatine Kinase 26 Total Protein Albumin Lipase Procalcitonin Urine Color Urine Clarity Urine pH Ur Specific [place] Urine Protein Urine Glucose (UA) Urine Ketones Urine Occult Blood Urine Nitrate Urine Bilirubin Urine Urobilinogen Ur Leukocyte Esterase Urine RBC Urine WBC Ur Squamous Epith Cells Ur Transition Epith Cell Ur Renal Epithelial Cell Amorphous Sediment Urine Bacteria Granular Casts Urine Mucus Micro UA Comment Ur Microscopic Review Urine Culture Comments Random Vancomycin Blood Type Antibody Screen MTS Gel Crossmatch Bld Prod Order Comment 05/17/18 05/17/18 05/18/18 17:53 23:56 05:20 WBC 12.2 H RBC 2.29 L Hgb 6.7 L* Hct 20.6 L* MCV 89.9 MCH 29.0 MCHC 32.3 RDW 16.0 Plt Count 155 D MPV 10.8 Prelim Diff (Auto) Neut % (Auto) Lymph % (Auto) [place] % (Auto) Eos % (Auto) Baso % (Auto) Neut # (Auto) Lymph # (Auto) [place] # (Auto) Eos # (Auto) Baso # (Auto) WBC Differential Seg Neuts % (Manual) Band Neuts % (Manual) Lymphocytes % (Manual) Monocytes % (Manual) Eosinophils % (Manual) Basophils % (Manual) Metamyelocytes % (Man) Myelocytes % (Man) Abs Neuts (Manual) Differential Comment Toxic Granulation Toxic Vacuolation Platelet Estimate Platelet Morphology PT INR Puncture Site Patient Temperature O2 Saturation ABG pH ABG pCO2 ABG pO2 ABG HCO3 ABG O2 Content ABG Base Excess ABG Methemoglobin Hemoglobin Carboxyhemoglobin O2 Delivery Device Vent Setting Inspired O2 Critical Value Sodium Potassium Chloride Carbon Dioxide Anion Gap BUN Creatinine Estimated GFR POC Glucose 118 H 137 H Random Glucose Lactic Acid Calcium Phosphorus Magnesium Total Bilirubin AST ALT Alkaline Phosphatase Ammonia Total Creatine Kinase Total Protein Albumin Lipase Procalcitonin Urine Color Urine Clarity Urine pH Ur Specific [place] Urine Protein Urine Glucose (UA) Urine Ketones Urine Occult Blood Urine Nitrate Urine Bilirubin Urine Urobilinogen Ur Leukocyte Esterase Urine RBC Urine WBC Ur Squamous Epith Cells Ur Transition Epith Cell Ur Renal Epithelial Cell Amorphous Sediment Urine Bacteria Granular Casts Urine Mucus Micro UA Comment Ur Microscopic Review Urine Culture Comments Random Vancomycin Blood Type Antibody Screen MTS Gel Crossmatch Bld Prod Order Comment 05/18/18 05/18/18 05/18/18 05:20 05:20 06:31 WBC RBC Hgb Hct MCV MCH MCHC RDW Plt Count MPV Prelim Diff (Auto) Neut % (Auto) Lymph % (Auto) [place] % (Auto) Eos % (Auto) Baso % (Auto) Neut # (Auto) Lymph # (Auto) [place] # (Auto) Eos # (Auto) Baso # (Auto) WBC Differential Seg Neuts % (Manual) Band Neuts % (Manual) Lymphocytes % (Manual) Monocytes % (Manual) Eosinophils % (Manual) Basophils % (Manual) Metamyelocytes % (Man) Myelocytes % (Man) Abs Neuts (Manual) Differential Comment Toxic Granulation Toxic Vacuolation Platelet Estimate Platelet Morphology PT INR Puncture Site Art line Patient Temperature 98.6 O2 Saturation 97 ABG pH 7.29 L* ABG pCO2 41 ABG pO2 237 H ABG HCO3 19 L ABG O2 Content 10.0 L ABG Base Excess -6.4 L ABG Methemoglobin 1.4 Hemoglobin 6.9 L* Carboxyhemoglobin 1.6 O2 Delivery Device Ventilator Vent Setting Prvc/ac Inspired O2 100 Critical Value Yes Sodium 136 Potassium 4.3 Chloride 104 Carbon Dioxide 20.3 L Anion Gap 12 BUN 62 H Creatinine 2.31 H Estimated GFR POC Glucose Random Glucose 129 H Lactic Acid Calcium 8.1 L Phosphorus Magnesium Total Bilirubin 1.9 H AST 62 H ALT 12 Alkaline Phosphatase 411 H Ammonia Total Creatine Kinase Total Protein 6.2 L Albumin 2.9 L Lipase 2438 H Procalcitonin 4.98 H Urine Color Urine Clarity Urine pH Ur Specific [place] Urine Protein Urine Glucose (UA) Urine Ketones Urine Occult Blood Urine Nitrate Urine Bilirubin Urine Urobilinogen Ur Leukocyte Esterase Urine RBC Urine WBC Ur Squamous Epith Cells Ur Transition Epith Cell Ur Renal Epithelial Cell Amorphous Sediment Urine Bacteria Granular Casts Urine Mucus Micro UA Comment Ur Microscopic Review Urine Culture Comments Random Vancomycin 17.1 Blood Type Antibody Screen MTS Gel Crossmatch Bld Prod Order Comment 05/18/18 05/18/18 05/18/18 06:55 11:13 12:13 WBC RBC Hgb Hct MCV MCH MCHC RDW Plt Count MPV Prelim Diff (Auto) Neut % (Auto) Lymph % (Auto) [place] % (Auto) Eos % (Auto) Baso % (Auto) Neut # (Auto) Lymph # (Auto) [place] # (Auto) Eos # (Auto) Baso # (Auto) WBC Differential Seg Neuts % (Manual) Band Neuts % (Manual) Lymphocytes % (Manual) Monocytes % (Manual) Eosinophils % (Manual) Basophils % (Manual) Metamyelocytes % (Man) Myelocytes % (Man) Abs Neuts (Manual) Differential Comment Toxic Granulation Toxic Vacuolation Platelet Estimate Platelet Morphology PT INR Puncture Site Patient Temperature O2 Saturation ABG pH ABG pCO2 ABG pO2 ABG HCO3 ABG O2 Content ABG Base Excess ABG Methemoglobin Hemoglobin Carboxyhemoglobin O2 Delivery Device Vent Setting Inspired O2 Critical Value Sodium Potassium Chloride Carbon Dioxide Anion Gap BUN Creatinine Estimated GFR POC Glucose 136 H Random Glucose Lactic Acid Calcium Phosphorus Magnesium Total Bilirubin AST ALT Alkaline Phosphatase Ammonia Total Creatine Kinase Total Protein Albumin Lipase Procalcitonin Urine Color [place] Urine Clarity Turbid H Urine pH 5.0 Ur Specific [place] 1.019 Urine Protein 100 H Urine Glucose (UA) Negative Urine Ketones Trace H Urine Occult Blood Moderate H Urine Nitrate Negative Urine Bilirubin Negative Urine Urobilinogen Less than 2 Ur Leukocyte Esterase Small H Urine RBC 18 H Urine WBC 54 H Ur Squamous Epith Cells 2 Ur Transition Epith Cell 5 Ur Renal Epithelial Cell 1 Amorphous Sediment Occasional H Urine Bacteria Few H Granular Casts 15 Urine Mucus Few H Micro UA Comment Culture indicated Ur Microscopic Review Not Reportable Urine Culture Comments Culture indicated Random Vancomycin Blood Type Antibody Screen MTS Gel Crossmatch See Detail Bld Prod Order Comment 05/18/18 13:00 WBC RBC Hgb 8.9 L D Hct 27.2 L MCV MCH MCHC RDW Plt Count MPV Prelim Diff (Auto) Neut % (Auto) Lymph % (Auto) [place] % (Auto) Eos % (Auto) Baso % (Auto) Neut # (Auto) Lymph # (Auto) [place] # (Auto) Eos # (Auto) Baso # (Auto) WBC Differential Seg Neuts % (Manual) Band Neuts % (Manual) Lymphocytes % (Manual) Monocytes % (Manual) Eosinophils % (Manual) Basophils % (Manual) Metamyelocytes % (Man) Myelocytes % (Man) Abs Neuts (Manual) Differential Comment Toxic Granulation Toxic Vacuolation Platelet Estimate Platelet Morphology PT INR Puncture Site Patient Temperature O2 Saturation ABG pH ABG pCO2 ABG pO2 ABG HCO3 ABG O2 Content ABG Base Excess ABG Methemoglobin Hemoglobin Carboxyhemoglobin O2 Delivery Device Vent Setting Inspired O2 Critical Value Sodium Potassium Chloride Carbon Dioxide Anion Gap BUN Creatinine Estimated GFR POC Glucose Random Glucose Lactic Acid Calcium Phosphorus Magnesium Total Bilirubin AST ALT Alkaline Phosphatase Ammonia Total Creatine Kinase Total Protein Albumin Lipase Procalcitonin Urine Color Urine Clarity Urine pH Ur Specific [place] Urine Protein Urine Glucose (UA) Urine Ketones Urine Occult Blood Urine Nitrate Urine Bilirubin Urine Urobilinogen Ur Leukocyte Esterase Urine RBC Urine WBC Ur Squamous Epith Cells Ur Transition Epith Cell Ur Renal Epithelial Cell Amorphous Sediment Urine Bacteria Granular Casts Urine Mucus Micro UA Comment Ur Microscopic Review Urine Culture Comments Random Vancomycin Blood Type Antibody Screen MTS Gel Crossmatch Bld Prod Order Comment Result Diagrams: 05/18/18 13:00 05/18/18 05:20 Microbiology: Microbiology 05/18/18 11:24 Gram Stain - Final Sputum - Endotracheal 05/16/18 15:26 Aerobic Blood Culture - Preliminary Blood - Line No growth in 2 days Anaerobic Blood Culture - Preliminary No growth in 2 days 05/16/18 15:21 Aerobic Blood Culture - Preliminary Blood - Peripheral No growth in 2 days Anaerobic Blood Culture - Preliminary No growth in 2 days 05/02/18 23:50 Fungal Smear - Final Abscess - Abdominal No fungal elements seen Fungal Culture - Preliminary No growth in 2 weeks 05/02/18 23:50 Acid Fast Bacilli Smear - Final Abscess - Abdominal No acid fast bacilli seen Mycobacterial Culture - Preliminary No growth in 2 weeks 05/14/18 18:50 Gram Stain - Final Sputum - Endotracheal Sputum Culture - Final No growth in 48 hours 05/09/18 00:26 Aerobic Blood Culture - Final Blood - Peripheral No growth in 5 days Anaerobic Blood Culture - Final QNS - See aerobic report. Imaging: Abdomen/Pelvis CT 05/02/18 15:10 CONCLUSION: 1. Anterior abdominal wall hernia containing a loop of small bowel with air and apparent surrounding inflammatory change. There is an abnormal bowel gas pattern and this is of concern for acute obstruction with possible strangulation. 2. New large cystic structure in the pelvis with air-fluid levels as well as additional cystic collections with air-fluid levels with represent additional phlegmon or abscesses. 3. Acute pancreatitis again noted with enlarged head of the pancreas with multiple calcifications and indistinctness. There are new cystic structures within the pancreas. There are multiple calcifications again noted. Pancreatic duct remains dilated. 4. Cirrhotic appearing liver with surrounding ascites. 5. Tiny gallstone again noted. Chest X-Ray 05/02/18 15:10 CONCLUSION: 1. Mild elevation of the right hemidiaphragm with concomitant atelectatic changes in the right lung base. 2. Lungs are otherwise clear. Heart size is normal. Chest X-Ray 05/03/18 01:02 CONCLUSION: 1. Right basilar density. 2. Endotracheal tube 5 mm above the arti. Chest X-Ray 05/05/18 06:00 CONCLUSION: ET tube in a low position 1.1 cm from the arti. Chest X-Ray 05/07/18 04:44 CONCLUSION: New diffuse consolidation likely representing diffuse edema or diffuse inflammatory change. Chest X-Ray 05/08/18 00:00 CONCLUSION: Considerable worsening of diffuse bilateral infiltrates. Chest X-Ray 05/08/18 08:36 CONCLUSION: 1. The endotracheal tube extends into the right main bronchus and there is associated volume loss in the left lung with complete opacification of the left hemithorax. 2. Severe diffuse right lung airspace consolidation more severe in the lower lung zone with small right pleural effusion. 3. These findings were telephoned to the nurse taking care of this patient at 9 :35 AM. Informed me that the intensive this has already retracted the endotracheal tube. Chest X-Ray 05/09/18 04:00 CONCLUSION: Reexpansion of the left lung with diffuse bilateral pulmonary infiltrates that have shown some improvement.. Chest X-Ray 05/10/18 00:00 CONCLUSION: Stable chest x-ray with moderate to severe bilateral lower lung zone airspace consolidation. Chest X-Ray 05/10/18 09:25 CONCLUSION: New Line in good position from the right without pneumothorax. Chest X-Ray 05/13/18 04:00 CONCLUSION: Stable radiographic appearance of the chest with bilateral patchy mixed interstitial and airspace infiltrates. Chest X-Ray 05/15/18 04:00 CONCLUSION: Slightly improved bibasilar airspace opacities. Chest X-Ray 05/16/18 00:00 CONCLUSION: Worsening appearance of the chest. Abdomen/Pelvis CT 05/16/18 09:39 CONCLUSION: 1. Diffuse body wall edema, small amount of ascites, and bilateral effusions and consolidation. 2. Abnormal bowel wall thickening involving the hepatic flexure and descending colon characteristic of colitis. 3. Mass like enlargement of the proximal pancreas with chronic pancreatitis calcifications noted. Patient/Family Conference Present at Family Conference: Significant Other Rebel Agustin Family Conference Location: [facility] Issues Discussed: * Palliative care role, purpose, approach * Additional medical, psychosocial, and spiritual history * Patients general health, functional status, and cognitive changes in the months leading up to the current hospitalization * Patient/family understanding of the current medical problems * Patient/family understanding of prognosis * Patients goals of care as best understood from advance directives and/or conversations and/or values * Current medical treatment options and benefits/burdens of those options * Likely scenarios comparing ongoing aggressive care with a transition to comfort measures only * Questions answered to the best of my ability * Palliative care contact information provided Assessment and Plan - Disease Oriented Problem List (1) Acute on chronic pancreatitis (2) Abdominal pain (3) Abdominal hernia (4) Intra-abdominal abscess (5) Pelvic abscess in female (6) ARDS (adult respiratory distress syndrome) (7) Anemia (8) H/O brain surgery - Symptom Scale (1) Abdominal pain 0-10 Scale: Unable to quantify Pertinent Non-Medical Issues: Psychosocial: Spiritual: Legal: Ethical issues impacting care: Prognosis: 43 year old with acute on chronic pancreatitis came in with acute abdomen. Has had multiple surgeries. Condition complicated by severe pelvic absess- intrabdominal septic shock, ARDS, despite surgeries, maximal vent settings, antibiotics. Prognosis appears to be poor. Code Status: Full Code Plan: ==Code: Full == Capacity- does not have capacity to make medical decisions. == health care decision maker- see Natividad Garcia case management social worker note for more detail. Health Care proxy is Rebel Agustin. ==Goals of Treatment. On my visit pt is critically ill, unresponsive. Patient's significant other Rebel Agustin was at bedside. Reviewed course of hospitalization with Health care proxy. I ask him what is his expectation of the hospitalization is? He endorse "Things are not looking good are they"? I said no, and I worry that patient despite all the surgical procedures, antibitoics and life support will not surive hospitalization. Pt is heading towards decline, and , despite medical/surgical managment. I reviewed code status with patient's significant other. He endorse he wants to talk it over to her 15 year old son. Became emotional. Difficult to accept. He is amenable to meet again sometime between 10am and 11:00. Pt remains FULL Code. == sympotms Assesment/plan Abdominal pain- multiple surgeries/ chronic abdominal pain, intrabdominal/pelvic absess, sepsis. prn available. == palliative care will follow to assisst in mangement of symptoms and review goals of care as clinical condition evolves. Appreciation Thank you for the opportunity to participate in the care of Shant Oh. Attestation Attestation: To help prompt me to consider important information that might be impacting today's encounter and assessment, information from prior notes written by myself or my colleagues may have been "brought forward" into today's note. My signature on this note, however, is an attestation that I personally performed the exam, history, and/or decision-making noted today, and, unless otherwise indicated, the interactions with patient, family, and staff as well as the review of records all occurred today. I also attest that the listed assessment and stated plan reflect my best clinical judgment today based on the combination of historical information, prior notes, and today's exam/ interactions. When time spent is documented, it refers only to time spent today by the signer, or if indicated, combined time spent today by collaborating physician/nurse practitioner.
[2018-05-18] MEDS: Multivitamin Inj 10 ML, Folic Acid Inj 1 MG in TPN Fluid 2 Liter 2,000 ML IV.SIG SCH (22:02)
--- NOTE | 2018-05-18 23:46 | US ---
EXAM DATE: 05/18/2018 11:39 PM EDT AGE/SEX: 43 years / Female INDICATIONS: Bilateral leg swelling. CLINICAL DATA: This is the patient's initial encounter. Patient reports that signs and symptoms have been present for 2 days and indicates a pain score of Nonresponsive. MEDICAL/SURGICAL HISTORY: . Meckel diverticulum. Traumatic brain injury. . Abdominal surgery. Brain surgery. Exploratory laparotomy. Orthopedic surgery. COMPARISON: No prior exams available for comparison. TECHNIQUE: Venous ultrasound of both lower extremities was performed from the inguinal ligament to t he proximal calf. Real-time, color Doppler and spectral tracing, compression and augmentation techni ques were used. FINDINGS: Right Leg: Normal compression of the deep venous system from the inguinal region to the proximal irma f. No echogenic clot is seen. Normal response of the venous system to augmentation and respiration. Left Leg: Normal compression of the deep venous system from the inguinal region to the proximal calf . No echogenic clot is seen. Normal response of the venous system to augmentation and respiration. Other: None. CONCLUSION: 1. The study is negative for bilateral lower extremity deep venous thrombosis. 2. Subcutaneous edema throughout both lower extremities. Electronically signed by: Tang Garcia MD 05/18/2018 11:45 PM EDT
--- NOTE | 2018-05-18 23:48 | US ---
EXAM DATE: 05/18/2018 11:45 PM EDT AGE/SEX: 43 years / Female INDICATIONS: Bilateral arm swelling. CLINICAL DATA: This is the patient's initial encounter. Patient reports that signs and symptoms have been present for 2 days and indicates a pain score of Nonresponsive. MEDICAL/SURGICAL HISTORY: . Meckel diverticulum. Traumatic brain injury. . Abdominal surgery. Brain surgery. Exploratory laparotomy. Orthopedic surgery. COMPARISON: No prior exams available for comparison. FINDINGS: Right Upper Extremity: The vessels are compressible and augmentation response is documented. No fill ing defects are seen. The flow is phasic with respiration. Left Upper Extremity: The vessels are compressible and augmentation response is documented. No filli ng defects are seen. The flow is phasic with respiration. Other: None. CONCLUSION: 1. The study is negative for bilateral upper extremity deep venous thrombosis. Electronically signed by: Tang Garcia MD 05/18/2018 11:47 PM EDT
[2018-05-19] MEDS: Oral Hygiene Kit OROPHARYNG SCH ×4 (04:14→23:42)
[2018-05-19] MEDS: Midazolam 50 MG/50 ML Inj 50 MG/50 ML BAG IV.CONT PRN ×2 (04:15→15:21)
[2018-05-19 04:41] LABS: ABG Base Excess -8.9 mmol/L (-2-2); ABG PCO2 33 mmHg (38-42); ABG PO2 90 mmHg (61-120)
[2018-05-19] MEDS: [UNRECOGNIZED DRUG - OTHER] RECTAL SCH ×6 (05:05→17:33)
[2018-05-19] MEDS: Heparin - SQ 10,000 UNITS/ML Vial SQ SCH ×3 (05:05→21:27)
[2018-05-19] MEDS: SODIUM CHLORIDE 0.9% RECTAL SCH ×6 (05:05→17:33)
[2018-05-19 05:34] LABS: Hematocrit 26.4 % (35.0-46.0); Hemoglobin 8.8 gm/dL (11.6-15.3); Mean Corpuscular HGB Conc 33.1 % (32.0-36.0); Mean Corpuscular Hemoglobin 29.7 pg (27.0-34.0); Mean Corpuscular Volume 89.6 fL (80.0-100.0); Mean Platelet Volume 10.5 fL (7.0-11.0); Platelet Count 176 th/mm3 (150-450); Red Blood Count 2.95 mil/mm3 (4.00-5.30); Red Cell Distribution Width 16.1 % (11.6-17.2); White Blood Count 14.2 th/mm3 (4.0-11.0)
[2018-05-19 06:03] LABS: Anion Gap 14 meq/L (5-15); Aspartate Aminotransferase 50 U/L (15-37); Blood Urea Nitrogen 81 mg/dL (7-18); Calcium 8.6 mg/dL (8.5-10.1); Carbon Dioxide 18.5 meq/L (21.0-32.0); Chloride 106 meq/L (98-107); Glomerular Filtration Rate 20 mL/min (>89); Glucose,Random 136 mg/dL (74-106); Potassium 4.4 meq/L (3.5-5.1); Sodium 138 meq/L (136-145)
[2018-05-19 06:12] LABS: Alanine Aminotransferase 10 U/L (10-53); Alkaline Phosphatase 423 U/L (45-117); Lipase 2893 U/L (73-393); Total Protein 6.5 g/dL (6.4-8.2)
[2018-05-19] MEDS: Insulin NovoLOG Aspart Correctional Sugar Inj SQ SCH ×3 (06:27→18:51)
[2018-05-19] MEDS ORDERED: Chlorothiazide Inj 500 MG Vial IV.PUSH STA (06:35)
[2018-05-19] MEDS: fentaNYL 10 mcg/mL Premix Drip 2,500 MCG/250 ML BAG IV.SIG PRN ×2 (07:00→17:33)
--- NOTE | 2018-05-19 07:30 | P.PNCC ---
Subjective Subjective Remarks/Hospital Course: 42 year old female admitted for an evaluation of abdominal pain. The abdominal pain has acutely worsened today. Her pain pain has been present intermittently for about 2 weeks but it was not as severe in nature. She has been into the hospital previously and was told she has an abdominal ventral hernia. At that time there was no acute concerns or evidence of strangulation/incarceration. The CAT scan obtained in the emergency department showed large cystic structure in the pelvis with air-fluid levels as well as additional cystic collections with air-fluid levels which represent additional phlegmon or abscesses. She was taken emergently to operating room by Dr. Smith with finding of a fair amount of old blood that was in the abdomen and then down the pelvis as well as a fairly sizable abscess. She has had an abscess around the liver, which was evacuated and irrigated. A portion of the omentum was removed because it was partially necrotic. A second abscess was identified in a portion of the pouch of Casey, which was evacuated, cultured as well. The abdomen was packed down the pelvis with two pads and then placed the VAC ABThera temporary closure device as the patient is planned to be brought back to operating room after stabilization in the intensive care unit. SUBJ 05/04: Remains intubated sedated remains critical. Currently on Dontrell- Synephrine to maintain map above 65. Hemoglobin came back at 6.2 ordered to receive 2 units of PRBC. White count is 28,000. Plan for OR 4 PM today. 05/05: Remains intubated and mechanically ventilated. Requiring vasopressor therapy with Dontrell-Synephrine to maintain suitable mean arterial pressure. White count markedly elevated. Abdominal closure yesterday. 05/06: Still requiring vasopressor support to maintain suitable blood pressure. Gas exchange has improved and we will start spontaneous breathing trials again today. White count declining. Renal function acceptable after an additional 3 L of saline were required yesterday. 05/07: During her period of florid sepsis she required considerable intravenous fluid in order to preserve renal function. It is now time to remove some of that fluid and she responded well to diuretics. Persistent leukocytosis is worrisome but overall she appears to be improving. Update 1200 hours: The patient's clinical condition has deteriorated over the past 6 hours, manifesting largely as respiratory distress and hypoxemia. It is tempting to attribute this largely to fluid overload following her extensive resuscitation but the declining bicarb level may well indicate worsening sepsis. 05/08: Continued deterioration and respiratory function overnight. This morning she is in full blown ARDS and will require reintubation and elevated airway pressures. We will obtain sputum on intubation and discuss antibiotic therapy with the infectious disease service. 05/09: Remains in ARDS. Oxygen diffusion gradient has been reduced by elevated mean airway pressures. Still vasopressor dependent and now anemic. No obvious source of blood loss. Remains critically ill and unstable. 05/10: Moves 4 limbs and responds. Gas exchange remains impaired but a little better than yesterday. Respiratory status remains unstable. Persistent elevation of lipase is concerning and it may be necessary to convert to parenteral nutrition. No evidence of bleeding. Will need to remove central line today 05/11: Still requiring vasopressor therapy undoubtedly due to low level ongoing sepsis. New lines have been placed, chest x-ray attempting to clear. Will try to lower airway pressures and perhaps convert back to conventional ventilation, allowing us to promote a diuresis. 05/12: We continued to lower mean airway pressure while maintaining recruitment. Gas exchange remains acceptable. Good response to diuretic therapy with 2 L negative balance yesterday. Finally off vasopressor support indicating resolution of sepsis. Lipase remains elevated, follow closely. 05/13: Weaning mean airway pressure lower. Coarse airway sounds and mild bronchospasm persists. Prerenal azotemia developing from diuresis will reduce diuretic dose. Lipase is finally returning toward normal. Consider restarting trickle feed tube feeds again. 05/14: Her septic course is very much improved. She remains persistently edematous. There are continued bilateral infiltrates on the chest x-ray and the left side density behind the heart sure looks like a pneumonia. Absence of leukocytosis belies that however. We have been slowly weaning her mean airway pressure and PEEP because she has problems with de-recruitment while resolving ARDS. 05/15: off vasopressors. still very encephalopathic. no improvement in pulmonary status- will likely require tracheostomy. significant edema and anasarca persists, although renal injury prevents us from diuresing more aggressively than we already are. 05/16: hypotensive overnight requiring phenylephrine. this AM, remains tachycardic. trached at bedside for persistent respiratory failure. discussed with dr. smith- will need CT abd/pelvis to rule out abscess formation. we also discussed that she will need enteral access, and distal jejunostomy would be best past the pancreas, but open surgical procedure would be technically difficult and high risk. for now will leave NGT in place, but may need percutaneous GJ in the future. 05/17: very ill and toxic appearing today. more tachycardic. anemic requiring transfusion. febrile. not yet hypotensive. reviewed CT abd/pelvis with Dr. Smith: no drainable fluid collection. colon thickening concerning for colitis. no diarrhea. certainly this could be C. Difficile megacolon. lungs with bilateral lower lobe consolidations, but oxygenation has remained largely stable, and no new secretions. bronch yesterday with very clear bronchial tree and no evidence of purulent drainage. less likely pneumonic process. does clearly appear septic. discussed with Dr. Aguilar. patient broadened to micafungin/meropenem. will add back iv flagyl and po/pr vanc. unlikely to have meaningful gut absorption from po route, so vanc enemas empirically until ileus resolves. still grossly volume overloaded, but unable to diurese at this time due to sepsis. 05/18: continues to clinically worsen. now more acidotic. fio2 up to 100% and oxygenation poor. CVP continues to uptrend and is now 26. now back on vasopressors. appears to be grossly volume overloaded, but likely in septic shock as well. started on vancomycin PO/WV yesterday for empiric therapy for c. diff megacolon, despite only a small area of colon which has the appearance of colitis. anemic despite transfusion and now requiring 2 additional units prbc today. anasarca worse and now significant skin breakdown from weeping edema. critically ill and worse today than yesterday. may need to consider palliative care, as we are continuing to worsen despite our maximal efforts. 05/19: continues to decline. tachypneic. acidotic. volume overload worse. has not responded to bumex drip at all. added Diuril today. palliative care met with medical decision-maker yesterday, and he is deciding on how aggressive to be. likely will mean renal replacement therapy in the near future if we continue to be aggressive, but given her overall medical condition, her survival is guarded at best. WBC still uptrending despite BSAbx. unclear source of infection. moderate amount of bloody secretions from trach browning which is new. hgb stable. Objective Vital Signs / I&O: Vital Signs 05/18/18 07:47 05/18/18 08:00 05/18/18 08:35 Temperature 38.2 C H 38.2 C H Pulse Rate 130 H 130 H 129 H Respiratory Rate 21 23 26 H Blood Pressure 102/53 L 102/57 L Pulse Oximetry 98 97 98 05/18/18 09:15 05/18/18 10:00 05/18/18 11:16 Temperature 38.3 C H Pulse Rate 129 H 129 H Respiratory Rate 25 H 27 H Blood Pressure 106/59 L Pulse Oximetry 96 97 05/18/18 12:00 05/18/18 14:00 05/18/18 15:19 Temperature 38.7 C H Pulse Rate 131 H 121 H Respiratory Rate 24 19 Blood Pressure 109/60 Pulse Oximetry 95 96 05/18/18 16:00 05/18/18 18:00 05/18/18 20:00 Temperature 36.8 C 36.8 C Pulse Rate 114 H 112 H 106 H Respiratory Rate 25 H 19 Blood Pressure 115/67 112/62 Pulse Oximetry 97 100 05/18/18 20:04 05/19/18 00:00 05/19/18 00:14 Temperature 36.4 C Pulse Rate 110 H 109 H Respiratory Rate 20 25 H 27 H Blood Pressure 124/72 Pulse Oximetry 100 100 100 05/19/18 03:44 05/19/18 04:00 Temperature 36.7 C Pulse Rate 109 H 117 H Respiratory Rate 26 H 29 H Blood Pressure 114/61 Pulse Oximetry 97 95 Intake & Output 05/18/18 05/19/18 05/19/18 18:59 06:59 18:59 Intake Total 1150 / 1150 2560.2 / 2560.2 Output Total 155 / 155 370 / 370 Balance 995 / 995 2190.2 / 2190.2 Weight 86 kg Intake: IV 800 / 800 2560.2 / 2560.2 Bumex Inj 25 mg In 100 ml @ 8 100 / 100 mls/hr IV.CONT .[id number] [facility] Rx# :[id number] Versed Inj 50 mg In 50 ml @ 2 50 / 50 50 / 50 MG/HR 2 mls/hr IV.CONT TITRATE PRN Rx#:[id number] Ofirmev Inj 1,000 mg In 100 ml 100 / 100 @ 400 mls/hr IV.SIG Q6H PRN Rx# :[id number] Flexbumin 25% Inj 100 ML @ 60 200 / 200 100 / 100 mls/hr IV.SIG Q8H [facility] Rx#: [id number] Merrem Inj 500 MG In NS Inj 100 100 / 100 200 / 200 ML @ 200 mls/hr IV.SIG Q8H [facility] Rx#:[id number] Mycamine Inj 100 MG In NS Inj 100 / 100 100 ML @ 100 mls/hr IV.SIG Q24H [facility] Rx#:[id number] MVI-12 Inj 10 ML Folvite Inj 1 2009.2 / 2009.2 MG In TPN Fluid 2 Liter 2,000 ML @ 83 mls/hr IV.SIG DAILY@ 1999 [facility] Rx#:[id number] NS Inj 250 ML @ 15 mls/hr IV. 100 / 100 SIG ONCE [facility] Rx#:[id number] fentaNYL 10 mcg/mL Premix Drip 250 / 250 2,500 mcg In 250 ml @ 50 MCG/HR 5 mls/hr IV.SIG TITRATE PRN Rx #:[id number] Water Bolus Amount 100 / 100 Other 250 / 250 Rbc As-3 Leukoreduced Unit 250 / 250 [id number] Intake (Blood Product) Amt 0 / 0 Rbc As-3 Leukoreduced Unit 0 / 0 [id number] Rbc As-3 Leukoreduced Unit 0 / 0 [id number] Output: Urine Amount (Catheter) 125 / 125 150 / 150 Indwelling Urethral Catheter 125 / 125 150 / 150 Gastric Drainage 200 / 200 Right Nare Nasogastric Tube 200 / 200 Wound Drainage 30 / 30 20 / 20 # 1 Abdomen 30 / 30 20 / 20 Other: # Bowel Movements 0 Result Diagrams: 05/19/18 05:10 05/19/18 05:10 Objective Remarks: GENERAL: 42 y/o woman, sedated, mechanically ventilated. SKIN: No generalized rash, no ecchymoses, generally edematous HEAD: Atraumatic. Normocephalic. EYES: Pupils equal, round and reactive to light. No conjunctival icterus. No injection or drainage. ENT: NGT in place. s/p 8.0 shiley cuffed trach. moderate amount of bloody secretions suctioned from trach browning. NECK: Trachea midline. Supple CARDIOVASCULAR: tachycardic rate, regular rhythm. sinus. RESPIRATORY: Coarse breath sounds bilaterally, scattered rhonchi. Good bilateral air entry. tachypneic. PRVC 50% fio2, peep 12, spo2 91%. ABDOMEN: Closed abdomen. Cristobal-Timmons drains draining serous fluid. anasarca. EXTREMITIES: No clubbing, cyanosis. Extremities well perfused, considerable edema in extremities NEUROLOGICAL: Sedated lightly for vent synchrony. RASS -3 today. more somnolent /encephalopathic. Withdraws 4 limbs to noxious stimulation. does not follow commands. Assessment and Plan - Assessment and Plan Plan: Assessment: 43yF with severe pelvic abscess and intra-abdominal septic shock, with persistent acute hypoxic respiratory failure. clinically continues to decline despite our efforts. volume overload has not responded to forced diuresis. will continue to discuss with family. If they continue to urge for aggressive measures, we will need to involve nephrology and possibly renal replacement therapy. Acute hypoxic and hypercarbic Respiratory failure- worsening. Pulmonary edema -Post operative and secondary to severe sepsis -Continue mechanical ventilation - no sbt today given severe hypoxemia. -Vent bundle. DuoNeb's as needed -Extubated May 06, reintubated 05/08 for ARDS. APRV mode required. - trach 05/[address] Smith - keep elevated peep today. - sputum culture 05/18: NGTD. - unlikely to be pneumonic process, but given acute shock and decompensation, have covered empirically with broad spectrum antibiotics. - more likely this is ongoing and worsening volume overload in the setting of distributive shock leading to severe refractory pulmonary edema. Agitated Delirium - no improvement with geodon/haldol. now with new acute sepsis. removed geodon/ haldol 05/17 and continue with fentanyl/propofol while critically ill. - daily sedation vacations - prop/fent for goal RASS -2. Incarcerated strangulated Ventral hernia Abdominal abscesses Intra-abdominal sepsis Pelvic Inflammatory Disease -Status post exploratory laparotomy and washout -Follow-up cultures, negative to date -Empiric antibiotics and antifungal IV meropenem, micafungin. - ID following - iv flagyl, po vanc, vanc enemas. -ID consultation-Dr. Aguilar -Further management per general surgery -Pain controlled with fentanyl infusion and as needed IV push Septic shock- recurrent -Vasopressor discontinued May 12. - phenylephrine restarted overnight 05/15, d/c 05/16, restarted 05/17 overnight. - today clinically appears toxic and in distress. likely new septic shock developing. Anemia secondary to acute blood loss requiring transfusion -received 1 unit prbc overnight 05/15. 1 additional unit prbc 05/17. - 2 units prbc 05/18 Acute intravascular volume overload Anasarca - albumin 25gm iv q8h - will be forced to diurese despite organ failure as pulmonary edema and gross anasarca are now quite life-threatening. - bumex drip at 2mg/hr - 500mg iv diuril. Acute kidney injury- worsening. - JENNIFER multifactorial - trend daily bmp - close uop monitoring. Acute protein calorie malnutrition- severe - continue full dose TPN DVT GI prophylaxis -Teds SCDs -SQH -Pepcid Overall impression: This woman remains critically ill following drainage of gram -negative intra-abdominal abscesses. The abdomen was closed 05/04 and the patient remains with recurrent septic shock on vasopressors. volume overload was already a problem and now with distributive shock has caused significant hypoxemia and impaired oxygenation. will attempt forced diuresis, but certainly could be at the cost of renal function. prognosis now appears quite guarded. Critical care time: 47 minutes, exclusive of separately billable procedures. specifically managed worsening shock and hypoxemia, volume overload, worsening kidney failure. discussion with consultants.
[2018-05-19] MEDS: Insulin Detemir Inj 1,000 UNIT/10 ML Vial SQ SCH ×2 (08:09→21:27)
[2018-05-19] MEDS: Chlorhexidine 0.12% Oral Kit 15 ML UDC OROPHARYNG SCH ×2 (08:09→21:10)
[2018-05-19] MEDS: Famotidine PF Inj 20 MG/2 ML Vial IV.PUSH SCH ×2 (08:45→21:28)
[2018-05-19] MEDS: Bumetanide Inj 25 MG/100 ML BAG IV.CONT SCH ×2 (09:00→21:09)
--- NOTE | 2018-05-19 10:14 | P.PNGS ---
Subjective Interval history: Patient remains critically ill TEJA Bolden at bedside--- Dontrell back on due to hypotension Physical Exam Vital signs: Vital Signs 05/18/18 11:16 05/18/18 12:00 05/18/18 14:00 Temperature 101.7 F H Pulse Rate 131 H 121 H Respiratory Rate 27 H 24 Blood Pressure 109/60 Pulse Oximetry 97 95 05/18/18 15:19 05/18/18 16:00 05/18/18 18:00 Temperature 98.2 F Pulse Rate 114 H 112 H Respiratory Rate 19 25 H Blood Pressure 115/67 Pulse Oximetry 96 97 05/18/18 20:00 05/18/18 20:04 05/19/18 00:00 Temperature 98.2 F 97.6 F Pulse Rate 106 H 110 H Respiratory Rate 19 20 25 H Blood Pressure 112/62 124/72 Pulse Oximetry 100 100 100 05/19/18 00:14 05/19/18 03:44 05/19/18 04:00 Temperature 98.1 F Pulse Rate 109 H 109 H 117 H Respiratory Rate 27 H 26 H 29 H Blood Pressure 114/61 Pulse Oximetry 100 97 95 05/19/18 07:40 05/19/18 08:00 Temperature 98.2 F Pulse Rate 119 H Respiratory Rate 28 H 24 Blood Pressure 100/58 L Pulse Oximetry 96 96 Intake & Output 05/18/18 05/19/18 05/19/18 18:59 06:59 18:59 Intake Total 1150 / 1150 2560.2 / 2560.2 200 / 200 Output Total 155 / 155 370 / 370 Balance 995 / 995 2190.2 / 2190.2 200 / 200 Weight 86 kg Intake: IV 800 / 800 2560.2 / 2560.2 200 / 200 Bumex Inj 25 mg In 100 ml @ 8 100 / 100 100 / 100 mls/hr IV.CONT .[id number] [facility] Rx# :[id number] Versed Inj 50 mg In 50 ml @ 2 50 / 50 50 / 50 MG/HR 2 mls/hr IV.CONT TITRATE PRN Rx#:[id number] Ofirmev Inj 1,000 mg In 100 ml 100 / 100 @ 400 mls/hr IV.SIG Q6H PRN Rx# :[id number] Flexbumin 25% Inj 100 ML @ 60 200 / 200 100 / 100 mls/hr IV.SIG Q8H [facility] Rx#: [id number] Merrem Inj 500 MG In NS Inj 100 100 / 100 200 / 200 100 / 100 ML @ 200 mls/hr IV.SIG Q8H [facility] Rx#:[id number] Mycamine Inj 100 MG In NS Inj 100 / 100 100 ML @ 100 mls/hr IV.SIG Q24H [facility] Rx#:[id number] MVI-12 Inj 10 ML Folvite Inj 1 2009.2 / 2009.2 MG In TPN Fluid 2 Liter 2,000 ML @ 83 mls/hr IV.SIG DAILY@ 2000 [facility] Rx#:[id number] NS Inj 250 ML @ 15 mls/hr IV. 100 / 100 SIG ONCE [facility] Rx#:[id number] fentaNYL 10 mcg/mL Premix Drip 250 / 250 2,500 mcg In 250 ml @ 50 MCG/HR 5 mls/hr IV.SIG TITRATE PRN Rx #:[id number] Water Bolus Amount 100 / 100 Other 250 / 250 Rbc As-3 Leukoreduced Unit 250 / 250 [id number] Intake (Blood Product) Amt 0 / 0 Rbc As-3 Leukoreduced Unit 0 / 0 [id number] Rbc As-3 Leukoreduced Unit 0 / 0 [id number] Output: Urine Amount (Catheter) 125 / 125 150 / 150 Indwelling Urethral Catheter 125 / 125 150 / 150 Gastric Drainage 200 / 200 Right Nare Nasogastric Tube 200 / 200 Wound Drainage 30 / 30 20 / 20 # 1 Abdomen 30 / 30 20 / 20 Other: # Bowel Movements 0 Narrative: Intubated; unresposive Cardio: Tachycardic Resp: Tachypneic Abd: extreme third spacing edema; incision with copious serous drainage; octavio in place to midline incision Ext: extreme 3-4+ pitting edema; BLE with mild redness to them - Urinary Catheter Management Indwelling Urethral Catheter Cath placed during this visit: yes Reason for continuing: Acute urinary retention Insertion date: 05/03/18 Assessment and Plan - Assessment (1) ARDS (adult respiratory distress syndrome) Code(s): J80 - Acute respiratory distress syndrome Status: Acute (2) Anemia Code(s): D64.9 - Anemia, unspecified Status: Acute (3) Acute on chronic pancreatitis Code(s): K85.90 - Acute pancreatitis without necrosis or infection, unspecified ; K86.1 - Other chronic pancreatitis Status: Chronic (4) Abdominal pain Code(s): R10.9 - Unspecified abdominal pain Status: Chronic Plan: 43 year old female s/p ex lap; washout; wound vac; bilateral salpingo oophorectomy (Dr. Escalera); ureteral stents (Dr. Beckwith) -Patient with continuing worsening overall condition -Back on pressors now -Kidney function worsening---- will likely need hemodialysis -Respiratory status worsening despite full ventilator support -Palliative Care following -Discussed in detail with Dr. Luu and Kimi LEZAMA - Attending Attestation NOTE FOR SURGICAL ATTENDING, DR. RADHA FOY I agree with above assessment and plan. The exam, history, and the medical decision-making described in the above note were completed with the assistance of the mid-level provider. I reviewed and agree with the findings presented. I attest that I had a [id number] encounter with the patient on the same day, and personally performed and documented my assessment and findings in the medical record. The following services were provided during this hospital visit: Chart data review, vital sign assessments/reviewing monitor data Review of consultations notes if present. Medication orders/review and/or management Ordering and/or reviewing lab tests Ordering and/or interpreting/reviewing x-rays and/or diagnostic studies Care of the patient and discussion of the patient with the care team Documentation time To help prompt me to consider important information that might be impacting today's encounter and assessment, Information from prior notes written by myself or my colleagues may have been "brought forward/copy and pasted" into today's note. (4) Abdominal pain Qualifiers: Abdominal location: generalized Qualified Code(s): R10.84 - Generalized abdominal pain
--- NOTE | 2018-05-19 11:14 | P.PNID ---
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 Patient's last hospitalization was in March and at that time she presented with abdominal pain, and had pancreatitis. Her imaging studies did not show pancreatitis, pseudocyst, and an abdominal wall hernia. She she was discharged she has had on and off abdominal pain but he was not that bad, but on the day of admission she had an acute onset of severe abdominal pain. There is no mention of any fever chills or sweats. No nausea or vomiting. Imaging studies on this admission is showing incarcerated hernia and presence of intra-abdominal abscess. Surgery saw the patient, and she was taken to surgery and had exploratory laparotomy, drainage of multiple abscesses , perihepatic, and multiple intra-abdominal and pelvic abscesses. Her abdomen is currently open, and she has a wound VAC over her open abdominal incision. Patient currently is on sedation, on the respirator. She is on Dontrell-Synephrine. She is afebrile. Her white count on admission was 14,000, and it is 29,000 today. She is currently on Diflucan, Flagyl, and Levaquin. Infectious disease consultation has been requested to assist in evaluation and treatment of patient with intra-abdominal abscess. Had surgery: 05/04 1. Bilateral salpingo-oophorectomy by Dr. Catherine Escalera. 2. Abdominal washout, abdominal exploration. 3. Lysis of adhesions. 4. Removal of appendiceal stump from probable previously ruptured appendicitis. 5. Drainage of pelvic abscess with intra-abdominal drain. 6. Repair of incisional hernia with closure of abdomen. Notes reviewed D/W RN Fevers yesterday, lower today On pressors Sedated on the vent, FiO2 at 50% Secretions bloody Rising creatinine, low UO Palliative consult noted; spoke with Dr Bañuelos WBC up to 14K Dyspneic on the vent On oral Vanco/and Vanco enema Increased third spacing CT A/P no new fluid collection, has bowel thickening L side, has increased pancreatic mass S/P trach 05/16 Antibiotics: Meropenem Micafungin PO/IR Vanco Lines: central line [facility] - 05/10 Past Medical History: Traumatic brain injury (Acute) H/O Meckel's diverticulum History of exploratory laparotomy (Acute) H/O abdominal surgery (Acute) H/O brain surgery (Chronic) History of orthopedic surgery Allergies/Adverse Reactions: Allergies amoxicillin Allergy (Severe, Verified 04/05/18 19:19) Hives penicillin G Allergy (Severe, Verified 04/05/18 19:19) Hives Objective Vital Signs 05/18/18 11:16 05/18/18 12:00 05/18/18 14:00 Temperature 101.7 F H Pulse Rate 131 H 121 H Respiratory Rate 27 H 24 Blood Pressure 109/60 Pulse Oximetry 97 95 05/18/18 15:19 05/18/18 16:00 05/18/18 18:00 Temperature 98.2 F Pulse Rate 114 H 112 H Respiratory Rate 19 25 H Blood Pressure 115/67 Pulse Oximetry 96 97 05/18/18 20:00 05/18/18 20:04 05/19/18 00:00 Temperature 98.2 F 97.6 F Pulse Rate 106 H 110 H Respiratory Rate 19 20 25 H Blood Pressure 112/62 124/72 Pulse Oximetry 100 100 100 05/19/18 00:14 05/19/18 03:44 05/19/18 04:00 Temperature 98.1 F Pulse Rate 109 H 109 H 117 H Respiratory Rate 27 H 26 H 29 H Blood Pressure 114/61 Pulse Oximetry 100 97 95 05/19/18 07:40 05/19/18 08:00 05/19/18 11:06 Temperature 98.2 F Pulse Rate 119 H Respiratory Rate 28 H 24 24 Blood Pressure 100/58 L Pulse Oximetry 96 96 96 Intake & Output 05/18/18 05/19/18 05/19/18 18:59 06:59 18:59 Intake Total 1150 / 1150 2560.2 / 2560.2 450 / 450 Output Total 155 / 155 370 / 370 Balance 995 / 995 2190.2 / 2190.2 450 / 450 Weight 86 kg Intake: IV 800 / 800 2560.2 / 2560.2 450 / 450 Bumex Inj 25 mg In 100 ml @ 8 100 / 100 100 / 100 mls/hr IV.CONT .[id number] [facility] Rx# :[id number] Versed Inj 50 mg In 50 ml @ 2 50 / 50 50 / 50 MG/HR 2 mls/hr IV.CONT TITRATE PRN Rx#:[id number] Ofirmev Inj 1,000 mg In 100 ml 100 / 100 @ 400 mls/hr IV.SIG Q6H PRN Rx# :[id number] Flexbumin 25% Inj 100 ML @ 60 200 / 200 100 / 100 mls/hr IV.SIG Q8H [facility] Rx#: [id number] Merrem Inj 500 MG In NS Inj 100 100 / 100 200 / 200 100 / 100 ML @ 200 mls/hr IV.SIG Q8H [facility] Rx#:[id number] Mycamine Inj 100 MG In NS Inj 100 / 100 100 ML @ 100 mls/hr IV.SIG Q24H [facility] Rx#:[id number] MVI-12 Inj 10 ML Folvite Inj 1 2009.2 / 2009.2 MG In TPN Fluid 2 Liter 2,000 ML @ 83 mls/hr IV.SIG DAILY@ 1999 [facility] Rx#:[id number] NS Inj 250 ML @ 15 mls/hr IV. 100 / 100 SIG ONCE [facility] Rx#:[id number] fentaNYL 10 mcg/mL Premix Drip 250 / 250 250 / 250 2,500 mcg In 250 ml @ 50 MCG/HR 5 mls/hr IV.SIG TITRATE PRN Rx #:[id number] Water Bolus Amount 100 / 100 Other 250 / 250 Rbc As-3 Leukoreduced Unit 250 / 250 [id number] Intake (Blood Product) Amt 0 / 0 Rbc As-3 Leukoreduced Unit 0 / 0 [id number] Rbc As-3 Leukoreduced Unit 0 / 0 [id number] Output: Urine Amount (Catheter) 125 / 125 150 / 150 Indwelling Urethral Catheter 125 / 125 150 / 150 Gastric Drainage 200 / 200 Right Nare Nasogastric Tube 200 / 200 Wound Drainage 30 / 30 20 / 20 # 1 Abdomen / 30 20 / 20 Other: # Bowel Movements 0 05/16/18 15:26 Blood - Line Aerobic Blood Culture - Preliminary No growth in 3 days 05/16/18 15:26 Blood - Line Anaerobic Blood Culture - Preliminary No growth in 3 days 05/16/18 15:21 Blood - Peripheral Aerobic Blood Culture - Preliminary No growth in 3 days 05/16/18 15:21 Blood - Peripheral Anaerobic Blood Culture - Preliminary No growth in 3 days 05/18/18 11:24 Sputum - Endotracheal Gram Stain - Final 05/18/18 11:24 Sputum - Endotracheal Sputum Culture - Pending 05/18/18 11:13 Clean Catch Urine Urine Culture - Pending 05/02/18 23:50 Abscess - Abdominal Fungal Smear - Final No fungal elements seen 05/02/18 23:50 Abscess - Abdominal Fungal Culture - Preliminary No growth in 2 weeks 05/02/18 23:50 Abscess - Abdominal Acid Fast Bacilli Smear - Final No acid fast bacilli seen 05/02/18 23:50 Abscess - Abdominal Mycobacterial Culture - Preliminary No growth in 2 weeks 05/14/18 18:50 Sputum - Endotracheal Gram Stain - Final 05/14/18 18:50 Sputum - Endotracheal Sputum Culture - Final No growth in 48 hours Lab - Hematology Results 05/18/18 05/18/18 05/19/18 05:20 13:00 05:10 WBC 12.2 H 14.2 H RBC 2.29 L 2.95 L Hgb 6.7 L* 8.9 L D 8.8 L Hct 20.6 L* 27.2 L 26.4 L MCV 89.9 89.6 MCH 29.0 29.7 MCHC 32.3 33.1 RDW 16.0 16.1 Plt Count 155 D 176 MPV 10.8 10.5 Lab - Chemistry Results 05/17/18 05/17/18 05/17/18 11:51 16:47 17:53 Sodium Potassium Chloride Carbon Dioxide Anion Gap BUN Creatinine Estimated GFR POC Glucose 111 H 118 H Random Glucose Calcium Total Bilirubin AST ALT Alkaline Phosphatase Total Creatine Kinase 26 Total Protein Albumin Lipase Procalcitonin 05/17/18 05/18/18 05/18/18 23:56 05:20 05:20 Sodium 136 Potassium 4.3 Chloride 104 Carbon Dioxide 20.3 L Anion Gap 12 BUN 62 H Creatinine 2.31 H Estimated GFR POC Glucose 137 H Random Glucose 129 H Calcium 8.1 L Total Bilirubin 1.9 H AST 62 H ALT 12 Alkaline Phosphatase 411 H Total Creatine Kinase Total Protein 6.2 L Albumin 2.9 L Lipase 2438 H Procalcitonin 4.98 H 05/18/18 05/18/18 05/19/18 12:13 17:26 00:32 Sodium Potassium Chloride Carbon Dioxide Anion Gap BUN Creatinine Estimated GFR POC Glucose 136 H 129 H 144 H Random Glucose Calcium Total Bilirubin AST ALT Alkaline Phosphatase Total Creatine Kinase Total Protein Albumin Lipase Procalcitonin 05/19/18 05:10 Sodium 138 Potassium 4.4 Chloride 106 Carbon Dioxide 18.5 L Anion Gap 14 BUN 81 H Creatinine 2.60 H Estimated GFR 20 L POC Glucose Random Glucose 136 H Calcium 8.6 Total Bilirubin 1.9 H AST 50 H ALT 10 Alkaline Phosphatase 423 H Total Creatine Kinase Total Protein 6.5 Albumin 3.0 L Lipase 2893 H Procalcitonin Imaging: ITS Impressions Chest X-Ray 05/16/18 00:00 CONCLUSION: Worsening appearance of the chest. Abdomen/Pelvis CT 05/16/18 09:39 CONCLUSION: 1. Diffuse body wall edema, small amount of ascites, and bilateral effusions and consolidation. 2. Abnormal bowel wall thickening involving the hepatic flexure and descending colon characteristic of colitis. 3. Mass like enlargement of the proximal pancreas with chronic pancreatitis calcifications noted. Venous Doppler Study 05/18/18 13:48 CONCLUSION: 1. The study is negative for bilateral upper extremity deep venous thrombosis. Physical Exam: GENERAL: on sedation, on the vent. Looks dyspneic SKIN: Cool and dry. No generalized rash. Edematous. Has areas of erythema on both legs and lower trunk HEAD: Atraumatic. Normocephalic. No temporal wasting, or tenderness. EYES: [place] conjunctiva. No petechia or hemorrhage. Pupils equal, round and reactive to light. No scleral icterus. No injection or drainage. EARS, NOSE AND THROAT: Nose without bleeding or purulent nasal discharge. Moist mucosa NECK: S/P trach, site looks ok CARDIOVASCULAR: Regular rate and rhythm. No murmurs, rubs or gallops heard RESPIRATORY: Diffuse rhonchi ABDOMEN: very distended abdomen, very hypoactive bowel sounds, midline incision, oozing serous fluid in lower portion. One ILA in LLQ with serous fluid. No reaction to deep palpation. Has erythema in lower trunk EXTREMITIES: Edematous. Has anasarca. Erythema both legs (where the compressions goes) and in lower trunk NEUROLOGICAL: Sedated PSYCHIATRIC: Unable to assess LINE: RSC line No evidence of infection Assessment and Plan - Plan Impression Sepsis with shock due to intraabdominal process New sepsis, with shock, new source? [facility] Multiple intraabdominal and pelvic abscess, S/P lap and drainage of abscess - S/P reexploration and closure Respiratory failure New bilateral pulmonary infiltrates - ?PNA - ?ARDS - repeat sputum negative - CXR worse again Leukocytosis Renal insufficiency, worsening, source? - has bowel wall thickening - increased pancreatic head, has known chronic pancreatitis - CXR worse again, more of fluid likely, ARDS Third spacing Bowel wall thickening, ? C diff Pancreatitis, chronic Erythema both legs and lower abdomen looks more due to edema Recommendation Continue Meropenem Continue Micafungin Continue Flagyl Continue Vanco oral and enema Follow new C/S Monitor progress Palliative medicine discussing with family goals of Rx She is not improving, and deteriorating despite aggressive Rx D/W RN Dr Dominguez covering this weekend
--- NOTE | 2018-05-19 11:44 | P.PNPAL ---
Reason for Visit Reason for visit: a. To assist with evaluation and management of symptoms including:pain, dyspnea b. To assist medical decision maker(s) with: better understanding of current medical conditions; weighing benefits/burdens of medical treatment options; making medical treatment decisions. Subjective Subjective/Interval History: Patient remains critically ill. Remains intubated. Risk of continue decompensation and decline high. Family/Friend Interactions: I met with significant other Rebel Agustin, Pt's 15 year old son, and pt's son father's girlfriend. Review prognosis, and decline. Code status was reviewed and ultimately significant other and pt's son decided on No shock/ no compression/ no acls drugs. In terms of my family meeting I was not able to get beyond that. They want to meet with Dr. Luu to ask questions and discussed further. Advance Directives Living Will: Never completed Health Care Surrogate: Never completed Durable Power of Traffic Analyst: Never completed (there is health care proxy paper completed.) Objective Vital Signs: Vital Signs 05/18/18 12:00 05/18/18 14:00 05/18/18 15:19 Temperature 101.7 F H Pulse Rate 131 H 121 H Respiratory Rate 24 19 Blood Pressure 109/60 Pulse Oximetry 95 96 05/18/18 16:00 05/18/18 18:00 05/18/18 20:00 Temperature 98.2 F 98.2 F Pulse Rate 114 H 112 H 106 H Respiratory Rate 25 H 19 Blood Pressure 115/67 112/62 Pulse Oximetry 97 100 05/18/18 20:04 05/19/18 00:00 05/19/18 00:14 Temperature 97.6 F Pulse Rate 110 H 109 H Respiratory Rate 20 25 H 27 H Blood Pressure 124/72 Pulse Oximetry 100 100 100 05/19/18 03:44 05/19/18 04:00 05/19/18 07:40 Temperature 98.1 F Pulse Rate 109 H 117 H Respiratory Rate 26 H 29 H 28 H Blood Pressure 114/61 Pulse Oximetry 97 95 96 05/19/18 08:00 05/19/18 11:06 Temperature 98.2 F Pulse Rate 119 H Respiratory Rate 24 24 Blood Pressure 100/58 L Pulse Oximetry 96 96 Intake & Output 05/18/18 05/19/18 05/19/18 18:59 06:59 18:59 Intake Total 1150 / 1150 2560.2 / 2560.2 450 / 450 Output Total 155 / 155 370 / 370 Balance 995 / 995 2190.2 / 2190.2 450 / 450 Weight 86 kg Intake: IV 800 / 800 2560.2 / 2560.2 450 / 450 Bumex Inj 25 mg In 100 ml @ 8 100 / 100 100 / 100 mls/hr IV.CONT .[id number] [facility]MA Rx# :[id number] Versed Inj 50 mg In 50 ml @ 2 50 / 50 50 / 50 MG/HR 2 mls/hr IV.CONT TITRATE PRN Rx#:[id number] Ofirmev Inj 1,000 mg In 100 ml 100 / 100 @ 400 mls/hr IV.SIG Q6H PRN Rx# :[id number] Flexbumin 25% Inj 100 ML @ 60 200 / 200 100 / 100 mls/hr IV.SIG Q8H ALMA Rx#: [id number] Merrem Inj 500 MG In NS Inj 100 100 / 100 200 / 200 100 / 100 ML @ 200 mls/hr IV.SIG Q8H ALMA Rx#:[id number] Mycamine Inj 100 MG In NS Inj 100 / 100 100 ML @ 100 mls/hr IV.SIG Q24H ALMA Rx#:[id number] MVI-12 Inj 10 ML Folvite Inj 1 2009.2 / 2010.2 MG In TPN Fluid 2 Liter 2,000 ML @ 83 mls/hr IV.SIG DAILY@ 2000 ALMA Rx#:[id number] NS Inj 250 ML @ 15 mls/hr IV. 100 / 100 SIG ONCE ALMA Rx#:[id number] fentaNYL 10 mcg/mL Premix Drip 250 / 250 250 / 250 2,500 mcg In 250 ml @ 50 MCG/HR 5 mls/hr IV.SIG TITRATE PRN Rx #:[id number] Water Bolus Amount 100 / 100 Other 250 / 250 Rbc As-3 Leukoreduced Unit 250 / 250 [id number] Intake (Blood Product) Amt 0 / 0 Rbc As-3 Leukoreduced Unit 0 / 0 [id number] Rbc As-3 Leukoreduced Unit 0 / 0 [id number] Output: Urine Amount (Catheter) 125 / 125 150 / 150 Indwelling Urethral Catheter 125 / 125 150 / 150 Gastric Drainage 200 / 200 Right Nare Nasogastric Tube 200 / 200 Wound Drainage 30 / 30 20 / 20 # 1 Abdomen 30 / 30 20 / 20 Other: # Bowel Movements 0 Physical Exam: CONSTITUTIONAL/GENERAL: Critically ill 42 women, intubated, sedated. SKIN: No jaundice, rashes, or lesions. Ecchymoses on upper extremities. No wounds seen anteriorly. Skin temperature appropriate. Not diaphoretic. HEAD: Atraumatic. Normocephalic. EYES: Pupils equal and round and reactive. Extraocular motions intact. No scleral icterus. ENT: NFT in place. Trach. NECK: Trachea midline. Trach in place. CARDIOVASCULAR: Regular rate and rhythm without murmurs, gallops, or rubs. No JVD. Peripheral pulses symmetric. RESPIRATORY/CHEST: Coarse breath sounds. bilate. GASTROINTESTINAL: Abdomen clsoed. Drains withs serous fluid, anasarca. GENITOURINARY: Without palpable bladder distension. Franklin catheter in place. MUSCULOSKELETAL: Extremities without clubbing, cyanosis, or edema. No joint tenderness or effusion noted. No calf tenderness. No mottling or clubbing. LYMPHATICS: No palpable cervical or supraclavicular adenopathy. NEUROLOGICAL: Intubated sedated. PSYCHIATRIC: could not examine. Diagnostic Tests Laboratory: Laboratory Results - last 72 hr 05/16/18 05/16/18 05/16/18 02:54 12:00 17:57 WBC RBC Hgb Hct MCV MCH MCHC RDW Plt Count MPV Puncture Site Patient Temperature O2 Saturation ABG pH ABG pCO2 ABG pO2 ABG HCO3 ABG O2 Content ABG Base Excess ABG Methemoglobin Hemoglobin Carboxyhemoglobin O2 Delivery Device Vent Setting Inspired O2 Critical Value Sodium Potassium Chloride Carbon Dioxide Anion Gap BUN Creatinine Estimated GFR POC Glucose 136 H 153 H Random Glucose Calcium Total Bilirubin AST ALT Alkaline Phosphatase Total Creatine Kinase Total Protein Albumin Lipase Procalcitonin Urine Color Urine Clarity Urine pH Ur Specific Dugger Urine Protein Urine Glucose (UA) Urine Ketones Urine Occult Blood Urine Nitrate Urine Bilirubin Urine Urobilinogen Ur Leukocyte Esterase Urine RBC Urine WBC Ur Squamous Epith Cells Ur Transition Epith Cell Ur Renal Epithelial Cell Amorphous Sediment Urine Bacteria Granular Casts Urine Mucus Micro UA Comment Ur Microscopic Review Urine Culture Comments Random Vancomycin MTS Gel Crossmatch See Detail Bld Prod Order Comment 05/16/18 05/17/18 05/17/18 23:47 05:10 05:10 WBC 11.8 H RBC 2.31 L Hgb 6.9 L* Hct 20.9 L* MCV 90.8 MCH 30.1 MCHC 33.1 RDW 15.1 Plt Count 100 L MPV 10.5 Puncture Site Patient Temperature O2 Saturation ABG pH ABG pCO2 ABG pO2 ABG HCO3 ABG O2 Content ABG Base Excess ABG Methemoglobin Hemoglobin Carboxyhemoglobin O2 Delivery Device Vent Setting Inspired O2 Critical Value Sodium 137 Potassium 3.8 Chloride 104 Carbon Dioxide 22.5 Anion Gap 11 BUN 57 H Creatinine 1.99 H Estimated GFR 27 L POC Glucose 118 H Random Glucose 103 Calcium 8.3 L Total Bilirubin 1.8 H AST 59 H ALT 10 Alkaline Phosphatase 312 H Total Creatine Kinase Total Protein 6.2 L Albumin 2.8 L Lipase 1922 H Procalcitonin Urine Color Urine Clarity Urine pH Ur Specific Dugger Urine Protein Urine Glucose (UA) Urine Ketones Urine Occult Blood Urine Nitrate Urine Bilirubin Urine Urobilinogen Ur Leukocyte Esterase Urine RBC Urine WBC Ur Squamous Epith Cells Ur Transition Epith Cell Ur Renal Epithelial Cell Amorphous Sediment Urine Bacteria Granular Casts Urine Mucus Micro UA Comment Ur Microscopic Review Urine Culture Comments Random Vancomycin MTS Gel Crossmatch Bld Prod Order Comment 05/17/18 05/17/18 05/17/18 06:07 09:00 11:51 WBC RBC Hgb Hct MCV MCH MCHC RDW Plt Count MPV Puncture Site Patient Temperature O2 Saturation ABG pH ABG pCO2 ABG pO2 ABG HCO3 ABG O2 Content ABG Base Excess ABG Methemoglobin Hemoglobin Carboxyhemoglobin O2 Delivery Device Vent Setting Inspired O2 Critical Value Sodium Potassium Chloride Carbon Dioxide Anion Gap BUN Creatinine Estimated GFR POC Glucose 109 111 H Random Glucose Calcium Total Bilirubin AST ALT Alkaline Phosphatase Total Creatine Kinase Total Protein Albumin Lipase Procalcitonin Urine Color Urine Clarity Urine pH Ur Specific Dugger Urine Protein Urine Glucose (UA) Urine Ketones Urine Occult Blood Urine Nitrate Urine Bilirubin Urine Urobilinogen Ur Leukocyte Esterase Urine RBC Urine WBC Ur Squamous Epith Cells Ur Transition Epith Cell Ur Renal Epithelial Cell Amorphous Sediment Urine Bacteria Granular Casts Urine Mucus Micro UA Comment Ur Microscopic Review Urine Culture Comments Random Vancomycin MTS Gel Crossmatch See Detail Bld Prod Order Comment 05/17/18 05/17/18 05/17/18 16:00 16:47 17:53 WBC RBC Hgb Hct MCV MCH MCHC RDW Plt Count MPV Puncture Site Art line Patient Temperature 98.6 O2 Saturation 88 L* ABG pH 7.41 ABG pCO2 33 L ABG pO2 60 L ABG HCO3 20 L ABG O2 Content 8.7 L ABG Base Excess -3.9 L ABG Methemoglobin 1.6 Hemoglobin 7.0 L* Carboxyhemoglobin 2.1 O2 Delivery Device Ventilator Vent Setting Inspired O2 45 Critical Value Yes Sodium Potassium Chloride Carbon Dioxide Anion Gap BUN Creatinine Estimated GFR POC Glucose 118 H Random Glucose Calcium Total Bilirubin AST ALT Alkaline Phosphatase Total Creatine Kinase 26 Total Protein Albumin Lipase Procalcitonin Urine Color Urine Clarity Urine pH Ur Specific Dugger Urine Protein Urine Glucose (UA) Urine Ketones Urine Occult Blood Urine Nitrate Urine Bilirubin Urine Urobilinogen Ur Leukocyte Esterase Urine RBC Urine WBC Ur Squamous Epith Cells Ur Transition Epith Cell Ur Renal Epithelial Cell Amorphous Sediment Urine Bacteria Granular Casts Urine Mucus Micro UA Comment Ur Microscopic Review Urine Culture Comments Random Vancomycin MTS Gel Crossmatch Bld Prod Order Comment 05/17/18 05/18/18 05/18/18 23:56 05:20 05:20 WBC 12.2 H RBC 2.29 L Hgb 6.7 L* Hct 20.6 L* MCV 89.9 MCH 29.0 MCHC 32.3 RDW 16.0 Plt Count 155 D MPV 10.8 Puncture Site Patient Temperature O2 Saturation ABG pH ABG pCO2 ABG pO2 ABG HCO3 ABG O2 Content ABG Base Excess ABG Methemoglobin Hemoglobin Carboxyhemoglobin O2 Delivery Device Vent Setting Inspired O2 Critical Value Sodium 136 Potassium 4.3 Chloride 104 Carbon Dioxide 20.3 L Anion Gap 12 BUN 62 H Creatinine 2.31 H Estimated GFR POC Glucose 137 H Random Glucose 129 H Calcium 8.1 L Total Bilirubin 1.9 H AST 62 H ALT 12 Alkaline Phosphatase 411 H Total Creatine Kinase Total Protein 6.2 L Albumin 2.9 L Lipase 2438 H Procalcitonin Urine Color Urine Clarity Urine pH Ur Specific Dugger Urine Protein Urine Glucose (UA) Urine Ketones Urine Occult Blood Urine Nitrate Urine Bilirubin Urine Urobilinogen Ur Leukocyte Esterase Urine RBC Urine WBC Ur Squamous Epith Cells Ur Transition Epith Cell Ur Renal Epithelial Cell Amorphous Sediment Urine Bacteria Granular Casts Urine Mucus Micro UA Comment Ur Microscopic Review Urine Culture Comments Random Vancomycin 17.1 MTS Gel Crossmatch Bld Prod Order Comment 05/18/18 05/18/18 05/18/18 05:20 06:31 06:55 WBC RBC Hgb Hct MCV MCH MCHC RDW Plt Count MPV Puncture Site Art line Patient Temperature 98.6 O2 Saturation 97 ABG pH 7.29 L* ABG pCO2 41 ABG pO2 237 H ABG HCO3 19 L ABG O2 Content 10.0 L ABG Base Excess -6.4 L ABG Methemoglobin 1.4 Hemoglobin 6.9 L* Carboxyhemoglobin 1.6 O2 Delivery Device Ventilator Vent Setting Prvc/ac Inspired O2 100 Critical Value Yes Sodium Potassium Chloride Carbon Dioxide Anion Gap BUN Creatinine Estimated GFR POC Glucose Random Glucose Calcium Total Bilirubin AST ALT Alkaline Phosphatase Total Creatine Kinase Total Protein Albumin Lipase Procalcitonin 4.98 H Urine Color Urine Clarity Urine pH Ur Specific Dugger Urine Protein Urine Glucose (UA) Urine Ketones Urine Occult Blood Urine Nitrate Urine Bilirubin Urine Urobilinogen Ur Leukocyte Esterase Urine RBC Urine WBC Ur Squamous Epith Cells Ur Transition Epith Cell Ur Renal Epithelial Cell Amorphous Sediment Urine Bacteria Granular Casts Urine Mucus Micro UA Comment Ur Microscopic Review Urine Culture Comments Random Vancomycin MTS Gel Crossmatch See Detail Bld Prod Order Comment 05/18/18 05/18/18 05/18/18 11:13 12:13 13:00 WBC RBC Hgb 8.9 L D Hct 27.2 L MCV MCH MCHC RDW Plt Count MPV Puncture Site Patient Temperature O2 Saturation ABG pH ABG pCO2 ABG pO2 ABG HCO3 ABG O2 Content ABG Base Excess ABG Methemoglobin Hemoglobin Carboxyhemoglobin O2 Delivery Device Vent Setting Inspired O2 Critical Value Sodium Potassium Chloride Carbon Dioxide Anion Gap BUN Creatinine Estimated GFR POC Glucose 136 H Random Glucose Calcium Total Bilirubin AST ALT Alkaline Phosphatase Total Creatine Kinase Total Protein Albumin Lipase Procalcitonin Urine Color Kati Urine Clarity Turbid H Urine pH 5.0 Ur Specific Dugger 1.019 Urine Protein 100 H Urine Glucose (UA) Negative Urine Ketones Trace H Urine Occult Blood Moderate H Urine Nitrate Negative Urine Bilirubin Negative Urine Urobilinogen Less than 2 Ur Leukocyte Esterase Small H Urine RBC 18 H Urine WBC 54 H Ur Squamous Epith Cells 2 Ur Transition Epith Cell 5 Ur Renal Epithelial Cell 1 Amorphous Sediment Occasional H Urine Bacteria Few H Granular Casts 15 Urine Mucus Few H Micro UA Comment Culture indicated Ur Microscopic Review Not Reportable Urine Culture Comments Culture indicated Random Vancomycin MTS Gel Crossmatch Bld Prod Order Comment 05/18/18 05/19/18 05/19/18 17:26 00:32 04:25 WBC RBC Hgb Hct MCV MCH MCHC RDW Plt Count MPV Puncture Site Art line Patient Temperature 98.6 O2 Saturation 95 ABG pH 7.31 L ABG pCO2 33 L ABG pO2 90 ABG HCO3 16 L* ABG O2 Content 11.3 L ABG Base Excess -8.9 L ABG Methemoglobin 1.2 Hemoglobin 8.4 L Carboxyhemoglobin 1.7 O2 Delivery Device Ventilator Vent Setting See comment Inspired O2 55 Critical Value Yes Sodium Potassium Chloride Carbon Dioxide Anion Gap BUN Creatinine Estimated GFR POC Glucose 129 H 144 H Random Glucose Calcium Total Bilirubin AST ALT Alkaline Phosphatase Total Creatine Kinase Total Protein Albumin Lipase Procalcitonin Urine Color Urine Clarity Urine pH Ur Specific Dugger Urine Protein Urine Glucose (UA) Urine Ketones Urine Occult Blood Urine Nitrate Urine Bilirubin Urine Urobilinogen Ur Leukocyte Esterase Urine RBC Urine WBC Ur Squamous Epith Cells Ur Transition Epith Cell Ur Renal Epithelial Cell Amorphous Sediment Urine Bacteria Granular Casts Urine Mucus Micro UA Comment Ur Microscopic Review Urine Culture Comments Random Vancomycin MTS Gel Crossmatch Bld Prod Order Comment 05/19/18 05/19/18 05:10 05:10 WBC 14.2 H RBC 2.95 L Hgb 8.8 L Hct 26.4 L MCV 89.6 MCH 29.7 MCHC 33.1 RDW 16.1 Plt Count 176 MPV 10.5 Puncture Site Patient Temperature O2 Saturation ABG pH ABG pCO2 ABG pO2 ABG HCO3 ABG O2 Content ABG Base Excess ABG Methemoglobin Hemoglobin Carboxyhemoglobin O2 Delivery Device Vent Setting Inspired O2 Critical Value Sodium 138 Potassium 4.4 Chloride 106 Carbon Dioxide 18.5 L Anion Gap 14 BUN 81 H Creatinine 2.60 H Estimated GFR 20 L POC Glucose Random Glucose 136 H Calcium 8.6 Total Bilirubin 1.9 H AST 50 H ALT 10 Alkaline Phosphatase 423 H Total Creatine Kinase Total Protein 6.5 Albumin 3.0 L Lipase 2893 H Procalcitonin Urine Color Urine Clarity Urine pH Ur Specific Dugger Urine Protein Urine Glucose (UA) Urine Ketones Urine Occult Blood Urine Nitrate Urine Bilirubin Urine Urobilinogen Ur Leukocyte Esterase Urine RBC Urine WBC Ur Squamous Epith Cells Ur Transition Epith Cell Ur Renal Epithelial Cell Amorphous Sediment Urine Bacteria Granular Casts Urine Mucus Micro UA Comment Ur Microscopic Review Urine Culture Comments Random Vancomycin MTS Gel Crossmatch Bld Prod Order Comment Result Diagrams: 05/19/18 05:10 05/19/18 05:10 Microbiology: Microbiology 05/16/18 15:26 Aerobic Blood Culture - Preliminary Blood - Line No growth in 3 days Anaerobic Blood Culture - Preliminary No growth in 3 days 05/16/18 15:21 Aerobic Blood Culture - Preliminary Blood - Peripheral No growth in 3 days Anaerobic Blood Culture - Preliminary No growth in 3 days 05/18/18 11:24 Gram Stain - Final Sputum - Endotracheal 05/02/18 23:50 Fungal Smear - Final Abscess - Abdominal No fungal elements seen Fungal Culture - Preliminary No growth in 2 weeks 05/02/18 23:50 Acid Fast Bacilli Smear - Final Abscess - Abdominal No acid fast bacilli seen Mycobacterial Culture - Preliminary No growth in 2 weeks 05/14/18 18:50 Gram Stain - Final Sputum - Endotracheal Sputum Culture - Final No growth in 48 hours Imaging: ITS Impressions Chest X-Ray 05/16/18 00:00 CONCLUSION: Worsening appearance of the chest. Abdomen/Pelvis CT 05/16/18 09:39 CONCLUSION: 1. Diffuse body wall edema, small amount of ascites, and bilateral effusions and consolidation. 2. Abnormal bowel wall thickening involving the hepatic flexure and descending colon characteristic of colitis. 3. Mass like enlargement of the proximal pancreas with chronic pancreatitis calcifications noted. Venous Doppler Study 05/18/18 13:48 CONCLUSION: 1. The study is negative for bilateral upper extremity deep venous thrombosis. Assessment and Plan - Disease Oriented Problem List (1) Acute on chronic pancreatitis (2) Abdominal pain (3) Abdominal hernia (4) Intra-abdominal abscess (5) Pelvic abscess in female (6) ARDS (adult respiratory distress syndrome) (7) Anemia (8) H/O brain surgery Pertinent Non-Medical Issues: Psychosocial: Has significant other Rebel Agustin. Pt also has a 15 year old son. 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 Prognosis: 43 year old with acute on chronic pancreatitis came in with acute abdomen. Has had multiple surgeries. Condition complicated by severe pelvic absess- intrabdominal septic shock, ARDS, despite surgeries, maximal vent settings, antibiotics. Prognosis is poor. Code Status: Alternative Code (No compression, no shock, no acls drugs. Cont mechanical ventilation/trach.) Plan: ==Code: Alternate code: No shock/ no cpr/ no acls drugs. Continue Intubation/Trach/ mechanical ventilation. == Capacity- does not have capacity to make medical decisions. == health care decision maker- see Natividad Garcia social media specialist note for more detail. Health Care proxy is Rebel Agustin. ==Goals of Treatment. * I met with significant other Rebel Agustin, Pt's 15 year old son, and pt's son father's girlfriend. Review prognosis, and decline. * Code status was reviewed and ultimately significant other and pt's son decided on No shock/ no compression/ no acls drugs. * In terms of my family meeting I was not able to get beyond that. * They want to meet with Dr. Luu to ask questions who will further discussed pt's condition, prognosis, answer questions, and medical decisions with family. == sympotms Assesment/plan Abdominal pain- multiple surgeries/ chronic abdominal pain, intrabdominal/pelvic absess, sepsis. prn available. == palliative care will follow to assist in management of symptoms and review goals of care as clinical condition evolves. Attestation Attestation: To help prompt me to consider important information that might be impacting today's encounter and assessment, information from prior notes written by myself or my colleagues may have been "brought forward" into today's note. My signature on this note, however, is an attestation that I personally performed the exam, history, and/or decision-making noted today, and, unless otherwise indicated, the interactions with patient, family, and staff as well as the review of records all occurred today. I also attest that the listed assessment and stated plan reflect my best clinical judgment today based on the combination of historical information, prior notes, and today's exam/ interactions. When time spent is documented, it refers only to time spent today by the signer, or if indicated, combined time spent today by collaborating physician/nurse practitioner.
[2018-05-19] MEDS: Multivitamin Inj 10 ML, Folic Acid Inj 1 MG in TPN Fluid 2 Liter 2,000 ML IV.SIG SCH (21:31)
[2018-05-20] MEDS: Midazolam 50 MG/50 ML Inj 50 MG/50 ML BAG IV.CONT PRN ×2 (00:11→09:46)
[2018-05-20] MEDS: Oral Hygiene Kit OROPHARYNG SCH (04:37)
[2018-05-20] MEDS: Insulin NovoLOG Aspart Correctional Sugar Inj SQ SCH ×2 (04:39→06:22)
[2018-05-20] MEDS: [UNRECOGNIZED DRUG - OTHER] RECTAL SCH ×4 (04:39→06:21)
[2018-05-20] MEDS: SODIUM CHLORIDE 0.9% RECTAL SCH ×4 (04:39→06:21)
[2018-05-20] MEDS: fentaNYL 10 mcg/mL Premix Drip 2,500 MCG/250 ML BAG IV.SIG PRN (05:30)
[2018-05-20 05:46] LABS: Hematocrit 26.4 % (35.0-46.0); Hemoglobin 8.5 gm/dL (11.6-15.3); Mean Corpuscular HGB Conc 32.2 % (32.0-36.0); Mean Corpuscular Hemoglobin 29.1 pg (27.0-34.0); Mean Corpuscular Volume 90.4 fL (80.0-100.0); Mean Platelet Volume 10.6 fL (7.0-11.0); Platelet Count 246 th/mm3 (150-450); Red Blood Count 2.92 mil/mm3 (4.00-5.30); White Blood Count 16.8 th/mm3 (4.0-11.0)
[2018-05-20] MEDS: Heparin - SQ 10,000 UNITS/ML Vial SQ SCH (06:26)
[2018-05-20 06:45] LABS: Alanine Aminotransferase 12 U/L (10-53); Albumin 2.2 g/dL (3.4-5.0); Alkaline Phosphatase 537 U/L (45-117); Anion Gap 16 meq/L (5-15); Aspartate Aminotransferase 48 U/L (15-37); Blood Urea Nitrogen 85 mg/dL (7-18); Calcium 7.7 mg/dL (8.5-10.1); Carbon Dioxide 17.4 meq/L (21.0-32.0); Chloride 104 meq/L (98-107); Glomerular Filtration Rate 19 mL/min (>89); Glucose,Random 107 mg/dL (74-106); Lipase 1777 U/L (73-393); Potassium 4.9 meq/L (3.5-5.1); Sodium 137 meq/L (136-145)
[2018-05-20] MEDS: Bumetanide Inj 25 MG/100 ML BAG IV.CONT SCH (07:17)
[2018-05-20 08:42] VITALS: RESP 21; O2SAT 99
[2018-05-20] MEDS: Chlorhexidine 0.12% Oral Kit 15 ML UDC OROPHARYNG SCH (08:46)
[2018-05-20] MEDS: Famotidine PF Inj 20 MG/2 ML Vial IV.PUSH SCH (08:46)
[2018-05-20] MEDS: Insulin Detemir Inj 1,000 UNIT/10 ML Vial SQ SCH (08:47)
[2018-05-20] MEDS ORDERED: Morphine Sulfate Inj 8 MG/ML Vial IV.PUSH ONE (10:45)
[2018-05-20] MEDS ORDERED: Morphine Inj 4 MG/ML Vial IV.PUSH ONE (10:45)
[2018-05-20] MEDS ORDERED: Morphine Inj 4 MG/ML Vial IV.PUSH PRN (10:45)
[2018-05-20] MEDS ORDERED: Hyoscyamine Inj 0.5 MG/ML Ampul IV.PUSH ONE (10:45)
[2018-05-20] MEDS ORDERED: Hyoscyamine Inj 0.5 MG/ML Ampul IV.PUSH PRN (10:45)
--- NOTE | 2018-05-20 10:54 | P.PNCC ---
Subjective Subjective Remarks/Hospital Course: 42 year old female admitted for an evaluation of abdominal pain. The abdominal pain has acutely worsened today. Her pain pain has been present intermittently for about 2 weeks but it was not as severe in nature. She has been into the hospital previously and was told she has an abdominal ventral hernia. At that time there was no acute concerns or evidence of strangulation/incarceration. The CAT scan obtained in the emergency department showed large cystic structure in the pelvis with air-fluid levels as well as additional cystic collections with air-fluid levels which represent additional phlegmon or abscesses. She was taken emergently to operating room by Dr. Smith with finding of a fair amount of old blood that was in the abdomen and then down the pelvis as well as a fairly sizable abscess. She has had an abscess around the liver, which was evacuated and irrigated. A portion of the omentum was removed because it was partially necrotic. A second abscess was identified in a portion of the pouch of Casey, which was evacuated, cultured as well. The abdomen was packed down the pelvis with two pads and then placed the VAC ABThera temporary closure device as the patient is planned to be brought back to operating room after stabilization in the intensive care unit. SUBJ 05/04: Remains intubated sedated remains critical. Currently on Dontrell- Synephrine to maintain map above 65. Hemoglobin came back at 6.2 ordered to receive 2 units of PRBC. White count is 28,000. Plan for OR 4 PM today. 05/05: Remains intubated and mechanically ventilated. Requiring vasopressor therapy with Dontrell-Synephrine to maintain suitable mean arterial pressure. White count markedly elevated. Abdominal closure yesterday. 05/06: Still requiring vasopressor support to maintain suitable blood pressure. Gas exchange has improved and we will start spontaneous breathing trials again today. White count declining. Renal function acceptable after an additional 3 L of saline were required yesterday. 05/07: During her period of florid sepsis she required considerable intravenous fluid in order to preserve renal function. It is now time to remove some of that fluid and she responded well to diuretics. Persistent leukocytosis is worrisome but overall she appears to be improving. Update 1200 hours: The patient's clinical condition has deteriorated over the past 6 hours, manifesting largely as respiratory distress and hypoxemia. It is tempting to attribute this largely to fluid overload following her extensive resuscitation but the declining bicarb level may well indicate worsening sepsis. 05/08: Continued deterioration and respiratory function overnight. This morning she is in full blown ARDS and will require reintubation and elevated airway pressures. We will obtain sputum on intubation and discuss antibiotic therapy with the infectious disease service. 05/09: Remains in ARDS. Oxygen diffusion gradient has been reduced by elevated mean airway pressures. Still vasopressor dependent and now anemic. No obvious source of blood loss. Remains critically ill and unstable. 05/10: Moves 4 limbs and responds. Gas exchange remains impaired but a little better than yesterday. Respiratory status remains unstable. Persistent elevation of lipase is concerning and it may be necessary to convert to parenteral nutrition. No evidence of bleeding. Will need to remove central line today 05/11: Still requiring vasopressor therapy undoubtedly due to low level ongoing sepsis. New lines have been placed, chest x-ray attempting to clear. Will try to lower airway pressures and perhaps convert back to conventional ventilation, allowing us to promote a diuresis. 05/12: We continued to lower mean airway pressure while maintaining recruitment. Gas exchange remains acceptable. Good response to diuretic therapy with 2 L negative balance yesterday. Finally off vasopressor support indicating resolution of sepsis. Lipase remains elevated, follow closely. 05/13: Weaning mean airway pressure lower. Coarse airway sounds and mild bronchospasm persists. Prerenal azotemia developing from diuresis will reduce diuretic dose. Lipase is finally returning toward normal. Consider restarting trickle feed tube feeds again. 05/14: Her septic course is very much improved. She remains persistently edematous. There are continued bilateral infiltrates on the chest x-ray and the left side density behind the heart sure looks like a pneumonia. Absence of leukocytosis belies that however. We have been slowly weaning her mean airway pressure and PEEP because she has problems with de-recruitment while resolving ARDS. 05/15: off vasopressors. still very encephalopathic. no improvement in pulmonary status- will likely require tracheostomy. significant edema and anasarca persists, although renal injury prevents us from diuresing more aggressively than we already are. 05/16: hypotensive overnight requiring phenylephrine. this AM, remains tachycardic. trached at bedside for persistent respiratory failure. discussed with dr. smith- will need CT abd/pelvis to rule out abscess formation. we also discussed that she will need enteral access, and distal jejunostomy would be best past the pancreas, but open surgical procedure would be technically difficult and high risk. for now will leave NGT in place, but may need percutaneous GJ in the future. 05/17: very ill and toxic appearing today. more tachycardic. anemic requiring transfusion. febrile. not yet hypotensive. reviewed CT abd/pelvis with Dr. Smith: no drainable fluid collection. colon thickening concerning for colitis. no diarrhea. certainly this could be C. Difficile megacolon. lungs with bilateral lower lobe consolidations, but oxygenation has remained largely stable, and no new secretions. bronch yesterday with very clear bronchial tree and no evidence of purulent drainage. less likely pneumonic process. does clearly appear septic. discussed with Dr. Aguilar. patient broadened to micafungin/meropenem. will add back iv flagyl and po/pr vanc. unlikely to have meaningful gut absorption from po route, so vanc enemas empirically until ileus resolves. still grossly volume overloaded, but unable to diurese at this time due to sepsis. 05/18: continues to clinically worsen. now more acidotic. fio2 up to 100% and oxygenation poor. CVP continues to uptrend and is now 26. now back on vasopressors. appears to be grossly volume overloaded, but likely in septic shock as well. started on vancomycin PO/CO yesterday for empiric therapy for c. diff megacolon, despite only a small area of colon which has the appearance of colitis. anemic despite transfusion and now requiring 2 additional units prbc today. anasarca worse and now significant skin breakdown from weeping edema. critically ill and worse today than yesterday. may need to consider palliative care, as we are continuing to worsen despite our maximal efforts. 05/19: continues to decline. tachypneic. acidotic. volume overload worse. has not responded to bumex drip at all. added Diuril today. palliative care met with medical decision-maker yesterday, and he is deciding on how aggressive to be. likely will mean renal replacement therapy in the near future if we continue to be aggressive, but given her overall medical condition, her survival is guarded at best. WBC still uptrending despite BSAbx. unclear source of infection. moderate amount of bloody secretions from trach browning which is new. hgb stable. 05/20: Remains sedated, orally intubated on mech vent. Family has decided to transition to comfort measures and request withdrawal from vent with comfort measures. D/W Dr. Vaughan who is Ok with their decision as well. Objective Vital Signs / I&O: Vital Signs 05/19/18 11:06 05/19/18 12:00 05/19/18 14:00 Temperature 99.1 F Pulse Rate 114 H 118 H Respiratory Rate 24 23 Blood Pressure 100/50 L Pulse Oximetry 96 96 05/19/18 15:12 05/19/18 16:00 05/19/18 18:00 Temperature 99.5 F Pulse Rate 115 H 124 H Respiratory Rate 23 25 H Blood Pressure 106/50 L Pulse Oximetry 98 95 05/19/18 20:00 05/19/18 22:00 05/20/18 00:00 Temperature 99.3 F 99.6 F Pulse Rate 119 H 117 H 121 H Respiratory Rate 23 23 Blood Pressure 113/52 L 112/55 L Pulse Oximetry 05/20/18 00:03 05/20/18 02:00 05/20/18 03:54 Temperature Pulse Rate 117 H Respiratory Rate 24 22 Blood Pressure Pulse Oximetry 96 98 05/20/18 04:00 05/20/18 06:00 05/20/18 08:41 Temperature 99.6 F Pulse Rate 118 H 112 H Respiratory Rate 23 21 Blood Pressure 118/54 L Pulse Oximetry 99 Intake & Output 05/19/18 05/20/18 05/20/18 18:59 06:59 18:59 Intake Total 1070 / 1070 2500 / 2500 150 / 150 Output Total 490 / 490 130 / 130 Balance 580 / 580 2370 / 2370 150 / 150 Weight 86.6 kg Intake: IV 950 / 950 2500 / 2500 150 / 150 Bumex Inj 25 mg In 100 ml @ 8 100 / 100 100 / 100 100 / 100 mls/hr IV.CONT .[id number] [facility] Rx# :[id number] Versed Inj 50 mg In 50 ml @ 2 50 / 50 50 / 50 50 / 50 MG/HR 2 mls/hr IV.CONT TITRATE PRN Rx#:[id number] Merrem Inj 500 MG In NS Inj 100 200 / 200 100 / 100 ML @ 200 mls/hr IV.SIG Q8H [facility] Rx#:[id number] Mycamine Inj 100 MG In NS Inj 100 / 100 100 ML @ 100 mls/hr IV.SIG Q24H [facility] Rx#:[id number] MVI-12 Inj 10 ML Folvite Inj 1 1999 / 1999 MG In TPN Fluid 2 Liter 2,000 ML @ 83 mls/hr IV.SIG DAILY@ 1999 [facility] Rx#:[id number] fentaNYL 10 mcg/mL Premix Drip 500 / 500 250 / 250 2,500 mcg In 250 ml @ 50 MCG/HR 5 mls/hr IV.SIG TITRATE PRN Rx #:[id number] Water Bolus Amount 120 / 120 Output: Urine Amount (Catheter) 150 / 150 100 / 100 Indwelling Urethral Catheter 150 / 150 100 / 100 Gastric Drainage 300 / 300 Right Nare Nasogastric Tube 300 / 300 Wound Drainage 40 / 40 30 / 30 # 1 Abdomen 40 / 40 30 / 30 Result Diagrams: 05/20/18 05:15 05/20/18 05:15 Objective Remarks: GENERAL: 42 y/o woman, sedated, mechanically ventilated. SKIN: No generalized rash, no ecchymoses, generally edematous HEAD: Atraumatic. Normocephalic. EYES: Pupils equal, round and reactive to light. No conjunctival icterus. No injection or drainage. ENT: NGT in place. s/p 8.0 shiley cuffed trach. moderate amount of bloody secretions suctioned from trach browning. NECK: Trachea midline. Supple CARDIOVASCULAR: tachycardic rate, regular rhythm. sinus. RESPIRATORY: Coarse breath sounds bilaterally, scattered rhonchi. Good bilateral air entry. tachypneic. PRVC 50% fio2, peep 12, spo2 91%. ABDOMEN: Closed abdomen. Cristobal-Timmons drains draining serous fluid. anasarca. EXTREMITIES: No clubbing, cyanosis. Extremities well perfused, considerable edema in extremities NEUROLOGICAL: Sedated lightly for vent synchrony. RASS -3 today. more somnolent /encephalopathic. Withdraws 4 limbs to noxious stimulation. does not follow commands. Assessment and Plan - Assessment and Plan Plan: Assessment: 43yF with severe pelvic abscess and intra-abdominal septic shock, with persistent acute hypoxic respiratory failure. clinically continues to decline despite our efforts. volume overload has not responded to forced diuresis. will continue to discuss with family. If they continue to urge for aggressive measures, we will need to involve nephrology and possibly renal replacement therapy. Acute hypoxic and hypercarbic Respiratory failure- worsening. Pulmonary edema -Post operative and secondary to severe sepsis -Continue mechanical ventilation - no sbt today given severe hypoxemia. -Vent bundle. DuoNeb's as needed -Extubated May 06, reintubated 05/08 for ARDS. APRV mode required. - trach 05/[address] Smith - keep elevated peep today. - sputum culture 05/18: NGTD. - unlikely to be pneumonic process, but given acute shock and decompensation, have covered empirically with broad spectrum antibiotics. - more likely this is ongoing and worsening volume overload in the setting of distributive shock leading to severe refractory pulmonary edema. Agitated Delirium - no improvement with geodon/haldol. now with new acute sepsis. removed geodon/ haldol 05/17 and continue with fentanyl/propofol while critically ill. - daily sedation vacations - prop/fent for goal RASS -2. Incarcerated strangulated Ventral hernia Abdominal abscesses Intra-abdominal sepsis Pelvic Inflammatory Disease -Status post exploratory laparotomy and washout -Follow-up cultures, negative to date -Empiric antibiotics and antifungal IV meropenem, micafungin. - ID following - iv flagyl, po vanc, vanc enemas. -ID consultation-Dr. Aguilar -Further management per general surgery -Pain controlled with fentanyl infusion and as needed IV push Septic shock- recurrent -Vasopressor discontinued May 12. - phenylephrine restarted overnight 05/15, d/c 05/16, restarted 05/17 overnight. - today clinically appears toxic and in distress. likely new septic shock developing. Anemia secondary to acute blood loss requiring transfusion -received 1 unit prbc overnight 05/15. 1 additional unit prbc 05/17. - 2 units prbc 05/18 Acute intravascular volume overload Anasarca - albumin 25gm iv q8h - will be forced to diurese despite organ failure as pulmonary edema and gross anasarca are now quite life-threatening. - bumex drip at 2mg/hr - 500mg iv diuril. Acute kidney injury- worsening. - JENNIFER multifactorial - trend daily bmp - close uop monitoring. Acute protein calorie malnutrition- severe - continue full dose TPN DVT GI prophylaxis -Teds SCDs -SQH -Pepcid Overall impression: This woman remains critically ill following drainage of gram -negative intra-abdominal abscesses. The abdomen was closed 05/04 and the patient remains with recurrent septic shock on vasopressors. volume overload was already a problem and now with distributive shock has caused significant hypoxemia and impaired oxygenation. will attempt forced diuresis, but certainly could be at the cost of renal function. prognosis now appears quite guarded. Family has decided to proceed with terminal wean and comfort measures only. Code status changed to DNR after d/w Dr. Vaughan who is in agreement with their decision. Critical care time: 30 minutes, exclusive of separately billable procedures.
[2018-05-20 11:13] VITALS: BP 112/51; TEMP 98.6
[2018-05-20 13:11] VITALS: PULSE 58
--- NOTE | 2018-05-20 13:20 | P.PN ---
Subjective Interval history: Discussed with laboratory chief and nurse; family requesting withdrawal. Physical Exam Vital signs: Vital Signs 05/19/18 14:00 05/19/18 15:12 05/19/18 16:00 Temperature 99.5 F Pulse Rate 118 H 115 H Respiratory Rate 23 25 H Blood Pressure 106/50 L Pulse Oximetry 98 95 05/19/18 18:00 05/19/18 20:00 05/19/18 22:00 Temperature 99.3 F Pulse Rate 124 H 119 H 117 H Respiratory Rate 23 Blood Pressure 113/52 L Pulse Oximetry 05/20/18 00:00 05/20/18 00:03 05/20/18 02:00 Temperature 99.6 F Pulse Rate 121 H 117 H Respiratory Rate 23 24 Blood Pressure 112/55 L Pulse Oximetry 96 05/20/18 03:54 05/20/18 04:00 05/20/18 06:00 Temperature 99.6 F Pulse Rate 118 H 112 H Respiratory Rate 22 23 Blood Pressure 118/54 L Pulse Oximetry 98 05/20/18 08:00 05/20/18 08:41 05/20/18 10:00 Temperature 98.6 F Pulse Rate 120 H 120 H Respiratory Rate 21 21 Blood Pressure 112/51 L Pulse Oximetry 99 99 05/20/18 12:00 Temperature Pulse Rate 58 L Respiratory Rate Blood Pressure Pulse Oximetry Intake & Output 05/19/18 05/20/18 05/20/18 18:59 06:59 18:59 Intake Total 1070 / 1070 2500 / 2500 150 / 150 Output Total 490 / 490 130 / 130 Balance 580 / 580 2370 / 2370 150 / 150 Weight 86.6 kg Intake: IV 950 / 950 2500 / 2500 150 / 150 Bumex Inj 25 mg In 100 ml @ 8 100 / 100 100 / 100 100 / 100 mls/hr IV.CONT .[id number] [facility] Rx# :[id number] Versed Inj 50 mg In 50 ml @ 2 50 / 50 50 / 50 50 / 50 MG/HR 2 mls/hr IV.CONT TITRATE PRN Rx#:[id number] Merrem Inj 500 MG In NS Inj 100 200 / 200 100 / 100 ML @ 200 mls/hr IV.SIG Q8H [facility] Rx#:[id number] Mycamine Inj 100 MG In NS Inj 100 / 100 100 ML @ 100 mls/hr IV.SIG Q24H [facility] Rx#:[id number] MVI-12 Inj 10 ML Folvite Inj 1 1999 / 1999 MG In TPN Fluid 2 Liter 2,000 ML @ 83 mls/hr IV.SIG DAILY@ 1999 [facility] Rx#:[id number] fentaNYL 10 mcg/mL Premix Drip 500 / 500 250 / 250 2,500 mcg In 250 ml @ 50 MCG/HR 5 mls/hr IV.SIG TITRATE PRN Rx #:[id number] Water Bolus Amount 120 / 120 Output: Urine Amount (Catheter) 150 / 150 100 / 100 Indwelling Urethral Catheter 150 / 150 100 / 100 Gastric Drainage 300 / 300 Right Nare Nasogastric Tube 300 / 300 Wound Drainage 40 / 40 30 / 30 # 1 Abdomen 40 / 40 30 / 30 - Urinary Catheter Management Indwelling Urethral Catheter Cath placed during this visit: yes Reason for continuing: Acute urinary retention Insertion date: 05/03/18 Results - Labs CBC & Chem 7: 05/20/18 05:15 05/20/18 05:15 Laboratory Results - last 24 hr 05/19/18 05/19/18 05/20/18 17:40 23:50 05:15 WBC 16.8 H RBC 2.92 L Hgb 8.5 L Hct 26.4 L MCV 90.4 MCH 29.1 MCHC 32.2 RDW 16.0 Plt Count 246 D MPV 10.6 Sodium Potassium Chloride Carbon Dioxide Anion Gap BUN Creatinine Estimated GFR POC Glucose 131 H 123 H Random Glucose Calcium Total Bilirubin AST ALT Alkaline Phosphatase Total Protein Albumin Lipase 05/20/18 05/20/18 05/20/18 05:15 06:18 08:45 WBC RBC Hgb Hct MCV MCH MCHC RDW Plt Count MPV Sodium 137 Potassium 4.9 Chloride 104 Carbon Dioxide 17.4 L Anion Gap 16 H BUN 85 H Creatinine 2.72 H Estimated GFR 19 L POC Glucose 116 H 124 H Random Glucose 107 H Calcium 7.7 L D Total Bilirubin 1.3 H AST 48 H ALT 12 Alkaline Phosphatase 537 H Total Protein 6.0 L Albumin 2.2 L D Lipase 1777 H Microbiology 05/18/18 11:24 Sputum - Endotracheal Gram Stain - Final 05/18/18 11:24 Sputum - Endotracheal Sputum Culture - Final No growth in 48 hours 05/16/18 15:26 Blood - Line Aerobic Blood Culture - Preliminary No growth in 4 days 05/16/18 15:26 Blood - Line Anaerobic Blood Culture - Preliminary No growth in 4 days 05/16/18 15:21 Blood - Peripheral Aerobic Blood Culture - Preliminary No growth in 4 days 05/16/18 15:21 Blood - Peripheral Anaerobic Blood Culture - Preliminary No growth in 4 days 05/18/18 11:13 Clean Catch Urine Urine Culture - Final No growth in 48 hours Assessment and Plan - Assessment (1) ARDS (adult respiratory distress syndrome) Code(s): J80 - Acute respiratory distress syndrome Status: Acute (2) Anemia Code(s): D64.9 - Anemia, unspecified Status: Acute (3) Acute on chronic pancreatitis Code(s): K85.90 - Acute pancreatitis without necrosis or infection, unspecified ; K86.1 - Other chronic pancreatitis Status: Chronic (4) Abdominal pain Code(s): R10.9 - Unspecified abdominal pain Status: Chronic - Plan Withdrawal of care. I agree with family and laboratory chief; nothing to be gained by further efforts; comfort measures appropriate. (4) Abdominal pain Qualifiers: Abdominal location: generalized Qualified Code(s): R10.84 - Generalized abdominal pain
--- NOTE | 2018-05-30 15:25 | P.DS ---
Date of admission: 05/02/18 19:34 Primary care physician: UNKNOWN Attending physician on discharge: Gabino Luu Anticipated date of discharge: 05/20/18 Brief History from admission: 42 year old female admitted for an evaluation of abdominal pain. The abdominal pain has acutely worsened today. Her pain pain has been present intermittently for about 2 weeks but it was not as severe in nature. She has been into the hospital previously and was told she has an abdominal ventral hernia. At that time there was no acute concerns or evidence of strangulation/incarceration. The CAT scan obtained in the emergency department showed large cystic structure in the pelvis with air-fluid levels as well as additional cystic collections with air-fluid levels which represent additional phlegmon or abscesses. She was taken emergently to operating room by Dr. Smith with finding of a fair amount of old blood that was in the abdomen and then down the pelvis as well as a fairly sizable abscess. She has had an abscess around the liver, which was evacuated and irrigated. A portion of the omentum was removed because it was partially necrotic. A second abscess was identified in a portion of the pouch of Casey, which was evacuated, cultured as well. The abdomen was packed down the pelvis with two pads and then placed the VAC ABThera temporary closure device as the patient is planned to be brought back to operating room after stabilization in the intensive care unit. SUBJ 05/04: Remains intubated sedated remains critical. Currently on Dontrell- Synephrine to maintain map above 65. Hemoglobin came back at 6.2 ordered to receive 2 units of PRBC. White count is 28,000. Plan for OR 4 PM today. 05/05: Remains intubated and mechanically ventilated. Requiring vasopressor therapy with Dontrell-Synephrine to maintain suitable mean arterial pressure. White count markedly elevated. Abdominal closure yesterday. 05/06: Still requiring vasopressor support to maintain suitable blood pressure. Gas exchange has improved and we will start spontaneous breathing trials again today. White count declining. Renal function acceptable after an additional 3 L of saline were required yesterday. 05/07: During her period of florid sepsis she required considerable intravenous fluid in order to preserve renal function. It is now time to remove some of that fluid and she responded well to diuretics. Persistent leukocytosis is worrisome but overall she appears to be improving. Update 1200 hours: The patient's clinical condition has deteriorated over the past 6 hours, manifesting largely as respiratory distress and hypoxemia. It is tempting to attribute this largely to fluid overload following her extensive resuscitation but the declining bicarb level may well indicate worsening sepsis. 05/08: Continued deterioration and respiratory function overnight. This morning she is in full blown ARDS and will require reintubation and elevated airway pressures. We will obtain sputum on intubation and discuss antibiotic therapy with the infectious disease service. 05/09: Remains in ARDS. Oxygen diffusion gradient has been reduced by elevated mean airway pressures. Still vasopressor dependent and now anemic. No obvious source of blood loss. Remains critically ill and unstable. 05/10: Moves 4 limbs and responds. Gas exchange remains impaired but a little better than yesterday. Respiratory status remains unstable. Persistent elevation of lipase is concerning and it may be necessary to convert to parenteral nutrition. No evidence of bleeding. Will need to remove central line today 05/11: Still requiring vasopressor therapy undoubtedly due to low level ongoing sepsis. New lines have been placed, chest x-ray attempting to clear. Will try to lower airway pressures and perhaps convert back to conventional ventilation, allowing us to promote a diuresis. 05/12: We continued to lower mean airway pressure while maintaining recruitment. Gas exchange remains acceptable. Good response to diuretic therapy with 2 L negative balance yesterday. Finally off vasopressor support indicating resolution of sepsis. Lipase remains elevated, follow closely. 05/13: Weaning mean airway pressure lower. Coarse airway sounds and mild bronchospasm persists. Prerenal azotemia developing from diuresis will reduce diuretic dose. Lipase is finally returning toward normal. Consider restarting trickle feed tube feeds again. 05/14: Her septic course is very much improved. She remains persistently edematous. There are continued bilateral infiltrates on the chest x-ray and the left side density behind the heart sure looks like a pneumonia. Absence of leukocytosis belies that however. We have been slowly weaning her mean airway pressure and PEEP because she has problems with de-recruitment while resolving ARDS. 05/15: off vasopressors. still very encephalopathic. no improvement in pulmonary status- will likely require tracheostomy. significant edema and anasarca persists, although renal injury prevents us from diuresing more aggressively than we already are. 05/16: hypotensive overnight requiring phenylephrine. this AM, remains tachycardic. trached at bedside for persistent respiratory failure. discussed with dr. smith- will need CT abd/pelvis to rule out abscess formation. we also discussed that she will need enteral access, and distal jejunostomy would be best past the pancreas, but open surgical procedure would be technically difficult and high risk. for now will leave NGT in place, but may need percutaneous GJ in the future. 05/17: very ill and toxic appearing today. more tachycardic. anemic requiring transfusion. febrile. not yet hypotensive. reviewed CT abd/pelvis with Dr. Smith: no drainable fluid collection. colon thickening concerning for colitis. no diarrhea. certainly this could be C. Difficile megacolon. lungs with bilateral lower lobe consolidations, but oxygenation has remained largely stable, and no new secretions. bronch yesterday with very clear bronchial tree and no evidence of purulent drainage. less likely pneumonic process. does clearly appear septic. discussed with Dr. Aguilar. patient broadened to micafungin/meropenem. will add back iv flagyl and po/pr vanc. unlikely to have meaningful gut absorption from po route, so vanc enemas empirically until ileus resolves. still grossly volume overloaded, but unable to diurese at this time due to sepsis. 05/18: continues to clinically worsen. now more acidotic. fio2 up to 100% and oxygenation poor. CVP continues to uptrend and is now 26. now back on vasopressors. appears to be grossly volume overloaded, but likely in septic shock as well. started on vancomycin PO/MA yesterday for empiric therapy for c. diff megacolon, despite only a small area of colon which has the appearance of colitis. anemic despite transfusion and now requiring 2 additional units prbc today. anasarca worse and now significant skin breakdown from weeping edema. critically ill and worse today than yesterday. may need to consider palliative care, as we are continuing to worsen despite our maximal efforts. 05/19: continues to decline. tachypneic. acidotic. volume overload worse. has not responded to bumex drip at all. added Diuril today. palliative care met with medical decision-maker yesterday, and he is deciding on how aggressive to be. likely will mean renal replacement therapy in the near future if we continue to be aggressive, but given her overall medical condition, her survival is guarded at best. WBC still uptrending despite BSAbx. unclear source of infection. moderate amount of bloody secretions from trach browning which is new. hgb stable. 05/20: Remains sedated, orally intubated on mech vent. Family has decided to transition to comfort measures and request withdrawal from vent with comfort measures. D/W Dr. Vaughan who is Ok with their decision as well. Objective Remarks: GENERAL: 42 y/o woman, sedated, mechanically ventilated. SKIN: No generalized rash, no ecchymoses, generally edematous HEAD: Atraumatic. Normocephalic. EYES: Pupils equal, round and reactive to light. No conjunctival icterus. No injection or drainage. ENT: NGT in place. s/p 8.0 shiley cuffed trach. moderate amount of bloody secretions suctioned from trach browning. NECK: Trachea midline. Supple CARDIOVASCULAR: tachycardic rate, regular rhythm. sinus. RESPIRATORY: Coarse breath sounds bilaterally, scattered rhonchi. Good bilateral air entry. tachypneic. PRVC 50% fio2, peep 12, spo2 91%. ABDOMEN: Closed abdomen. Cristobal-Timmons drains draining serous fluid. anasarca. EXTREMITIES: No clubbing, cyanosis. Extremities well perfused, considerable edema in extremities NEUROLOGICAL: Sedated lightly for vent synchrony. RASS -3 today. more somnolent /encephalopathic. Withdraws 4 limbs to noxious stimulation. does not follow commands. Assessment and Plan - Assessment and Plan Plan: Assessment: 43yF with severe pelvic abscess and intra-abdominal septic shock, with persistent acute hypoxic respiratory failure. clinically continues to decline despite our efforts. volume overload has not responded to forced diuresis. will continue to discuss with family. If they continue to urge for aggressive measures, we will need to involve nephrology and possibly renal replacement therapy. Acute hypoxic and hypercarbic Respiratory failure- worsening. Pulmonary edema -Post operative and secondary to severe sepsis -Continue mechanical ventilation - no sbt today given severe hypoxemia. -Vent bundle. DuoNeb's as needed -Extubated May 06, reintubated 05/08 for ARDS. APRV mode required. - trach 05/[address] Smith - keep elevated peep today. - sputum culture 05/18: NGTD. - unlikely to be pneumonic process, but given acute shock and decompensation, have covered empirically with broad spectrum antibiotics. - more likely this is ongoing and worsening volume overload in the setting of distributive shock leading to severe refractory pulmonary edema. Agitated Delirium - no improvement with geodon/haldol. now with new acute sepsis. removed geodon/ haldol 05/17 and continue with fentanyl/propofol while critically ill. - daily sedation vacations - prop/fent for goal RASS -2. Incarcerated strangulated Ventral hernia Abdominal abscesses Intra-abdominal sepsis Pelvic Inflammatory Disease -Status post exploratory laparotomy and washout -Follow-up cultures, negative to date -Empiric antibiotics and antifungal IV meropenem, micafungin. - ID following - iv flagyl, po vanc, vanc enemas. -ID consultation-Dr. Aguilar -Further management per general surgery -Pain controlled with fentanyl infusion and as needed IV push Septic shock- recurrent -Vasopressor discontinued May 12. - phenylephrine restarted overnight 05/15, d/c 05/16, restarted 05/17 overnight. - today clinically appears toxic and in distress. likely new septic shock developing. Anemia secondary to acute blood loss requiring transfusion -received 1 unit prbc overnight 05/15. 1 additional unit prbc 05/17. - 2 units prbc 05/18 Acute intravascular volume overload Anasarca - albumin 25gm iv q8h - will be forced to diurese despite organ failure as pulmonary edema and gross anasarca are now quite life-threatening. - bumex drip at 2mg/hr - 500mg iv diuril. Acute kidney injury- worsening. - JENNIFER multifactorial - trend daily bmp - close uop monitoring. Acute protein calorie malnutrition- severe - continue full dose TPN DVT GI prophylaxis -Teds SCDs -SQH -Pepcid Overall impression: This woman remains critically ill following drainage of gram -negative intra-abdominal abscesses. The abdomen was closed 05/04 and the patient remains with recurrent septic shock on vasopressors. volume overload was already a problem and now with distributive shock has caused significant hypoxemia and impaired oxygenation. will attempt forced diuresis, but certainly could be at the cost of renal function. prognosis now appears quite guarded. Family decided to proceed with terminal wean and comfort measures only. Code status changed to DNR after d/w Dr. Vaughan who is in agreement with their decision. Patient made comfort measures and terminal wean performed. She went into a cardiac arrest and was pronounced on 05/20/18 at 1607 hrs. Patient update on day of discharge: DS: Summary Hospital Course: 42 year old female admitted for an evaluation of abdominal pain. The abdominal pain has acutely worsened today. Her pain pain has been present intermittently for about 2 weeks but it was not as severe in nature. She has been into the hospital previously and was told she has an abdominal ventral hernia. At that time there was no acute concerns or evidence of strangulation/incarceration. The CAT scan obtained in the emergency department showed large cystic structure in the pelvis with air-fluid levels as well as additional cystic collections with air-fluid levels which represent additional phlegmon or abscesses. She was taken emergently to operating room by Dr. Smith with finding of a fair amount of old blood that was in the abdomen and then down the pelvis as well as a fairly sizable abscess. She has had an abscess around the liver, which was evacuated and irrigated. A portion of the omentum was removed because it was partially necrotic. A second abscess was identified in a portion of the pouch of Casey, which was evacuated, cultured as well. The abdomen was packed down the pelvis with two pads and then placed the VAC ABThera temporary closure device as the patient is planned to be brought back to operating room after stabilization in the intensive care unit. SUBJ 05/04: Remains intubated sedated remains critical. Currently on Dontrell- Synephrine to maintain map above 65. Hemoglobin came back at 6.2 ordered to receive 2 units of PRBC. White count is 28,000. Plan for OR 4 PM today. 05/05: Remains intubated and mechanically ventilated. Requiring vasopressor therapy with Dontrell-Synephrine to maintain suitable mean arterial pressure. White count markedly elevated. Abdominal closure yesterday. 05/06: Still requiring vasopressor support to maintain suitable blood pressure. Gas exchange has improved and we will start spontaneous breathing trials again today. White count declining. Renal function acceptable after an additional 3 L of saline were required yesterday. 05/07: During her period of florid sepsis she required considerable intravenous fluid in order to preserve renal function. It is now time to remove some of that fluid and she responded well to diuretics. Persistent leukocytosis is worrisome but overall she appears to be improving. Update 1200 hours: The patient's clinical condition has deteriorated over the past 6 hours, manifesting largely as respiratory distress and hypoxemia. It is tempting to attribute this largely to fluid overload following her extensive resuscitation but the declining bicarb level may well indicate worsening sepsis. 05/08: Continued deterioration and respiratory function overnight. This morning she is in full blown ARDS and will require reintubation and elevated airway pressures. We will obtain sputum on intubation and discuss antibiotic therapy with the infectious disease service. 05/09: Remains in ARDS. Oxygen diffusion gradient has been reduced by elevated mean airway pressures. Still vasopressor dependent and now anemic. No obvious source of blood loss. Remains critically ill and unstable. 05/10: Moves 4 limbs and responds. Gas exchange remains impaired but a little better than yesterday. Respiratory status remains unstable. Persistent elevation of lipase is concerning and it may be necessary to convert to parenteral nutrition. No evidence of bleeding. Will need to remove central line today 05/11: Still requiring vasopressor therapy undoubtedly due to low level ongoing sepsis. New lines have been placed, chest x-ray attempting to clear. Will try to lower airway pressures and perhaps convert back to conventional ventilation, allowing us to promote a diuresis. 05/12: We continued to lower mean airway pressure while maintaining recruitment. Gas exchange remains acceptable. Good response to diuretic therapy with 2 L negative balance yesterday. Finally off vasopressor support indicating resolution of sepsis. Lipase remains elevated, follow closely. 05/13: Weaning mean airway pressure lower. Coarse airway sounds and mild bronchospasm persists. Prerenal azotemia developing from diuresis will reduce diuretic dose. Lipase is finally returning toward normal. Consider restarting trickle feed tube feeds again. 05/14: Her septic course is very much improved. She remains persistently edematous. There are continued bilateral infiltrates on the chest x-ray and the left side density behind the heart sure looks like a pneumonia. Absence of leukocytosis belies that however. We have been slowly weaning her mean airway pressure and PEEP because she has problems with de-recruitment while resolving ARDS. 05/15: off vasopressors. still very encephalopathic. no improvement in pulmonary status- will likely require tracheostomy. significant edema and anasarca persists, although renal injury prevents us from diuresing more aggressively than we already are. 05/16: hypotensive overnight requiring phenylephrine. this AM, remains tachycardic. trached at bedside for persistent respiratory failure. discussed with dr. smith- will need CT abd/pelvis to rule out abscess formation. we also discussed that she will need enteral access, and distal jejunostomy would be best past the pancreas, but open surgical procedure would be technically difficult and high risk. for now will leave NGT in place, but may need percutaneous GJ in the future. 05/17: very ill and toxic appearing today. more tachycardic. anemic requiring transfusion. febrile. not yet hypotensive. reviewed CT abd/pelvis with Dr. Smith: no drainable fluid collection. colon thickening concerning for colitis. no diarrhea. certainly this could be C. Difficile megacolon. lungs with bilateral lower lobe consolidations, but oxygenation has remained largely stable, and no new secretions. bronch yesterday with very clear bronchial tree and no evidence of purulent drainage. less likely pneumonic process. does clearly appear septic. discussed with Dr. Aguilar. patient broadened to micafungin/meropenem. will add back iv flagyl and po/pr vanc. unlikely to have meaningful gut absorption from po route, so vanc enemas empirically until ileus resolves. still grossly volume overloaded, but unable to diurese at this time due to sepsis. 05/18: continues to clinically worsen. now more acidotic. fio2 up to 100% and oxygenation poor. CVP continues to uptrend and is now 26. now back on vasopressors. appears to be grossly volume overloaded, but likely in septic shock as well. started on vancomycin PO/MA yesterday for empiric therapy for c. diff megacolon, despite only a small area of colon which has the appearance of colitis. anemic despite transfusion and now requiring 2 additional units prbc today. anasarca worse and now significant skin breakdown from weeping edema. critically ill and worse today than yesterday. may need to consider palliative care, as we are continuing to worsen despite our maximal efforts. 05/19: continues to decline. tachypneic. acidotic. volume overload worse. has not responded to bumex drip at all. added Diuril today. palliative care met with medical decision-maker yesterday, and he is deciding on how aggressive to be. likely will mean renal replacement therapy in the near future if we continue to be aggressive, but given her overall medical condition, her survival is guarded at best. WBC still uptrending despite BSAbx. unclear source of infection. moderate amount of bloody secretions from trach browning which is new. hgb stable. 05/20: Remains sedated, orally intubated on mech vent. Family has decided to transition to comfort measures and request withdrawal from vent with comfort measures. D/W Dr. Vaughan who is Ok with their decision as well. - Time Spent with Patient Total time spent providing and/or coordinating discharge services: Less than 30 minutes Results Procedures completed during hospitalization: intubation Completed studies during hospitalization: Pending at discharge 05/03/18 Surgical [PTH] Routine 05/04/18 08:03 Surgical [PTH] Routine Labs on day of discharge: Preliminary micro results at discharge 05/02/18 23:50 Fungal Culture - Preliminary Abscess - Abdominal No growth in 3 weeks 05/02/18 23:50 Mycobacterial Culture - Preliminary Abscess - Abdominal No growth in 3 weeks - Impressions ITS Impressions Chest X-Ray 05/16/18 00:00 CONCLUSION: Worsening appearance of the chest. Abdomen/Pelvis CT 05/16/18 09:39 CONCLUSION: 1. Diffuse body wall edema, small amount of ascites, and bilateral effusions and consolidation. 2. Abnormal bowel wall thickening involving the hepatic flexure and descending colon characteristic of colitis. 3. Mass like enlargement of the proximal pancreas with chronic pancreatitis calcifications noted. Venous Doppler Study 05/18/18 13:48 CONCLUSION: 1. The study is negative for bilateral upper extremity deep venous thrombosis. Discharge Plan - Discharge Disposition Patient Disposition: 20 - Discharge Details Date/Time: 05/20/18 16:07 - Physicians Team Primary Care Provider: UNKNOWN, Attending Provider: Nima Kingston Other Providers: Douglas Smith MD ; Nima Kingston MD ; Estefania Aguilar MD ; Catherine Escalera MD ; Carol Castillo MD
== END 2018-05-20 16:07 | disposition expired ==
LOC: NEPC 15:03 → NEDA 19:34 → N03 05-03 00:56
PROVIDERS: ADMIT Internal Medicine Critical Care Medicine; ATTEND Internal Medicine Critical Care Medicine